=== PATIENT | male | born 1960 | race American Indian/Alaskan Native ===

== ENCOUNTER 2016-08-12 22:31 | Emergency (ER) | payer SELFPAY ==
[2016-08-13] MEDS ORDERED: TYLENOL PO ONE (08:16)
--- NOTE | 2016-08-13 08:16 | Emergency Department Report ---
ED Back Pain/Injury HPI - General Chief Complaint: Back Pain/Injury Stated Complaint: BACK PAIN Time Seen by Provider: 08/13/16 07:21 Source: patient Limitations: No Limitations - History of Present Illness Initial Comments: 55-year-old male past medical history chronic lower back pain, compression of lumbar vertebra, history of alcohol abuse presents with complaint of acute on chronic lower back pain. he has been riding his bike more than usual lately and has typical back pain has gotten slightly worse. Denies any fevers chills no dysuria no hematuria reported by patient. Patient is fully ambulatory states that he has been taking Advil with minimal relief of his pain. States that he was given follow-up with orthopedics and pain management but has not yet followed up as an outpatient. Patient requesting pain medicine and requesting referral for outpatient orthopedic follow-up. Denies any recent trauma or falls MD Complaint: back pain Onset/Timin -: year(s) Severity: mild Severity scale (0 -10): 7 Quality: aching Consistency: constant Context: while lifting, turning/twisting, bending - Related Data Previous Rx's Medication Instructions Recorded Last Taken Type traMADol [Ultram] 50 mg PO Q6HR PRN #20 tablet 11/08/15 Unknown Rx traMADol [Ultram] 50 mg PO Q6HR PRN #10 tablet 01/11/16 Unknown Rx Naproxen [Naprosyn TAB] 375 mg PO BID PRN #20 tablet 08/13/16 Unknown Rx Allergies Allergy/AdvReac Type Severity Reaction Status Date / Time No Known Allergies Allergy Verified 10/14/15 23:17 ED Review of Systems ROS: Stated complaint: BACK PAIN Other details as noted in HPI ED Past Medical Hx - Past Medical History Previous Medical History?: Yes Additional medical history: Back and neck pn, ETOH abuse - Surgical History Additional Surgical History: Left Knee - Social History Smoking Status: Never Smoker Substance Use Type: Alcohol - Medications Home Medications: Home Medications Medication Instructions Recorded Confirmed Last Taken Type traMADol [Ultram] 50 mg PO Q6HR PRN #20 tablet 11/08/15 12/11/15 Unknown Rx traMADol [Ultram] 50 mg PO Q6HR PRN #10 tablet 01/11/16 Unknown Rx Naproxen [Naprosyn TAB] 375 mg PO BID PRN #20 tablet 06/06/17 Unknown Rx ED Physical Exam - General Limitations: No Limitations General appearance: alert, in no apparent distress - Head Head exam: Present: atraumatic, normocephalic - Eye Eye exam: Present: normal appearance, PERRL, EOMI - ENT ENT exam: Present: mucous membranes moist - Neck Neck exam: Present: normal inspection, full ROM - Respiratory Respiratory exam: Present: normal lung sounds bilaterally. Absent: respiratory distress - Cardiovascular Cardiovascular Exam: Present: regular rate, normal rhythm. Absent: systolic murmur, diastolic murmur, rubs, gallop - GI/Abdominal GI/Abdominal exam: Present: soft, normal bowel sounds - Rectal Rectal exam: Present: deferred - Extremities Exam Extremities exam: Present: normal inspection - Back Exam Back exam: Present: normal inspection, full ROM - Expanded Back Exam Expanded Back exam: Positive Straight Leg Raise: Right (at 30 degrees) - Neurological Exam Neurological exam: Present: alert, oriented X3, CN II-XII intact - Expanded Neurological Exam Expanded Patient oriented to: Present: person, place, time Sensory exam: Lower Extremity Light Touch: Normal, Lower Extremity Pin Prick: Normal, LE 2 Point Discrimination: Normal Motor strength exam: RUE: 5, LUE: 5, RLE: 5, LLE: 5 DTR: knee (R): 3+, knee (L): 3+, ankle (R): 3+, ankle (L): 3+ Best Eye Response (Kwaku): (4) open spontaneously Best Motor Response (Milton): (6) obeys commands Best Verbal Response (Milton): (5) oriented Kwaku Total: 15 - Psychiatric Psychiatric exam: Present: normal affect, normal mood - Skin Skin exam: Present: warm, dry, intact, normal color. Absent: rash ED Course Vital Signs 08/12/16 08/13/16 23:24 08:45 Temperature 98.5 F Pulse Rate 107 H Respiratory 20 16 Rate Blood Pressure 132/91 O2 Sat by Pulse 95 Oximetry ED Medical Decision Making - Medical Decision Making A/P: Chronic back pain secondary to degenerative disc disease 1-patient fully ambulatory and no saddle paresthesias, mesenteric reflex intact , no loss of bladder or bowel control strength 5 out of 5 all extremities distal reflexes intact, no clinical signs of cauda equina cord compression 2-follow-up with outpatient orthopedics and I also provided patient with neurosurgery follow-up in formation 3-will give patient trial of naproxen for pain control Critical care attestation.: If time is entered above; I have spent that time in minutes in the direct care of this critically ill patient, excluding procedure time. ED Disposition Clinical Impression: Chronic back pain Qualifiers: Back pain location: low back pain Back pain laterality: midline Sciatica presence: without sciatica Qualified Code(s): M54.5 - Low back pain; G89.29 - Other chronic pain Disposition: DISCHARGED TO HOME OR SELFCARE Is pt being admited?: No Does the pt Need Aspirin: No Condition: Stable Instructions: Chronic Back Pain (ED), Back Pain (ED) Additional Instructions: DEANNA RCOUCH [phone] [email or web address] Prescriptions: Naproxen [Naprosyn TAB] 375 mg PO BID PRN #20 tablet PRN Reason: Pain Referrals: MYRON CHAMBERS MD [Staff Physician] - 3-5 Days [facility] [Provider Group] - 3-5 Days DEANNA CROUCH MD [Staff Physician] - 3-5 Days Time of Disposition: 09:01
[2016-08-13 09:19] VITALS: BP 140/86
== END 2016-08-13 09:18 | disposition home or self-care (01) ==
LOC: ED 22:31
DX: M54.5 Low back pain (principal); G89.29 Other chronic pain
CPT/HCPCS: 99282

== ENCOUNTER 2016-08-30 21:36 | Emergency (ER) | payer SELFPAY ==
--- NOTE | 2016-08-31 04:07 | Emergency Department Report ---
ED Back Pain/Injury HPI - General Chief Complaint: Back Pain/Injury Stated Complaint: BACK PAIN Time Seen by Provider: 08/31/16 03:55 Source: patient Limitations: No Limitations - History of Present Illness Initial Comments: Patient comes into the ER today with continued complaints of back pain. Patient states that he is been told that he has a herniated disc approximately a month ago and was referred to a back doctor but that he missed the appointment. Patient denies any new injury. Patient's comes in tonight simply because of the pain. Denies any loss of bowel control or urinary control, abdominal pain. Patient states that occasionally the pain will radiate into his legs. MD Complaint: back pain - Related Data Previous Rx's Medication Instructions Recorded Last Taken Type traMADol [Ultram] 50 mg PO Q6HR PRN #20 tablet 11/08/15 Unknown Rx traMADol [Ultram] 50 mg PO Q6HR PRN #10 tablet 01/11/16 Unknown Rx Naproxen [Naprosyn TAB] 375 mg PO BID PRN #20 tablet 08/13/16 Unknown Rx Naproxen [Naprosyn TAB] 500 mg PO BID #14 tablet 08/31/16 Unknown Rx traMADol [Ultram 50 MG tab] 50 mg PO Q6HR PRN #15 tablet 08/31/16 Unknown Rx Allergies Allergy/AdvReac Type Severity Reaction Status Date / Time No Known Allergies Allergy Verified 10/14/15 23:17 ED Review of Systems ROS: Stated complaint: BACK PAIN Other details as noted in HPI Constitutional: denies: chills, fever Eyes: denies: eye pain, eye discharge, vision change ENT: denies: ear pain, throat pain Respiratory: denies: cough, shortness of breath, wheezing Cardiovascular: denies: chest pain, palpitations Endocrine: no symptoms reported Gastrointestinal: denies: abdominal pain, nausea, diarrhea Genitourinary: denies: urgency, dysuria Musculoskeletal: back pain. denies: joint swelling, arthralgia Skin: denies: rash, lesions Neurological: denies: headache, weakness, paresthesias Psychiatric: denies: anxiety, depression Hematological/Lymphatic: denies: easy bleeding, easy bruising ED Past Medical Hx - Past Medical History Previous Medical History?: Yes Additional medical history: Back and neck pn, ETOH abuse - Surgical History Past Surgical History?: Yes Additional Surgical History: Left Knee - Social History Smoking Status: Never Smoker - Medications Home Medications: Home Medications Medication Instructions Recorded Confirmed Last Taken Type traMADol [Ultram] 50 mg PO Q6HR PRN #20 tablet 11/08/15 12/11/15 Unknown Rx traMADol [Ultram] 50 mg PO Q6HR PRN #10 tablet 01/11/16 Unknown Rx Naproxen [Naprosyn TAB] 375 mg PO BID PRN #20 tablet 08/13/16 Unknown Rx Naproxen [Naprosyn TAB] 500 mg PO BID #14 tablet 08/31/16 Unknown Rx traMADol [Ultram 50 MG tab] 50 mg PO Q6HR PRN #15 tablet 08/31/16 Unknown Rx ED Physical Exam - General Limitations: No Limitations General appearance: alert, in no apparent distress - Head Head exam: Present: atraumatic, normocephalic - Eye Eye exam: Present: normal appearance - ENT ENT exam: Present: mucous membranes moist - Neck Neck exam: Present: normal inspection - Respiratory Respiratory exam: Present: normal lung sounds bilaterally. Absent: respiratory distress - Cardiovascular Cardiovascular Exam: Present: regular rate, normal rhythm. Absent: systolic murmur, diastolic murmur, rubs, gallop - GI/Abdominal GI/Abdominal exam: Present: soft, normal bowel sounds - Rectal Rectal exam: Present: deferred - Extremities Exam Extremities exam: Present: normal inspection, full ROM, normal capillary refill. Absent: tenderness, pedal edema, joint swelling, calf tenderness - Back Exam Back exam: Present: normal inspection, full ROM, tenderness, paraspinal tenderness. Absent: CVA tenderness (R), CVA tenderness (L), muscle spasm, vertebral tenderness - Neurological Exam Neurological exam: Present: alert, oriented X3, CN II-XII intact, normal gait, reflexes normal. Absent: motor sensory deficit - Psychiatric Psychiatric exam: Present: normal affect, normal mood - Skin Skin exam: Present: warm, dry, intact, normal color. Absent: rash ED Course Vital Signs 08/30/16 21:52 Temperature 98.3 F Pulse Rate 107 H Respiratory 18 Rate Blood Pressure 127/86 O2 Sat by Pulse 100 Oximetry ED Medical Decision Making - Medical Decision Making Patient is nontoxic and hemodynamically stable. Patient has ongoing back pain. I see no reason for additional imaging at this time. I will prescribe patient some mild pain medications as well as anti-inflammatories and give patient another referral to the orthopedics. Patient is in agreement with treatment plan the patient is stable for discharge. Critical care attestation.: If time is entered above; I have spent that time in minutes in the direct care of this critically ill patient, excluding procedure time. ED Disposition Clinical Impression: Low back pain Disposition: DC-01 TO HOME OR SELFCARE Is pt being admited?: No Does the pt Need Aspirin: No Condition: Good Instructions: Chronic Back Pain (ED), Back Pain (ED) Prescriptions: Naproxen [Naprosyn TAB] 500 mg PO BID #14 tablet traMADol [Ultram 50 MG tab] 50 mg PO Q6HR PRN #15 tablet PRN Reason: Pain Referrals: PRIMARY CARE, [Primary Care Provider] - 3-5 Days MYRON CHAMBERS MD [Staff Physician] - 3-5 Days Time of Disposition: 04:06
[2016-08-31 04:22] VITALS: BP 115/77
== END 2016-08-31 04:22 | disposition home or self-care (01) ==
LOC: ED 21:36
DX: M54.5 Low back pain (principal)
CPT/HCPCS: 99282

== ENCOUNTER 2017-01-24 13:46 | Emergency (ER) | payer SELFPAY | END 2017-01-24 16:00 | disposition left against medical advice (07) | LOC: ED 13:46 | DX: Z53.21 Procedure and treatment not carried out due to patient leaving prior to being seen by health care provider (principal) ==

== ENCOUNTER 2017-02-06 20:44 | Emergency (ER) | payer OTHER ==
[2017-02-07 07:04] VITALS: BP 108/69
[2017-02-07] MEDS ORDERED: ZOFRAN ODT PO ONE (08:11)
[2017-02-07] MEDS ORDERED: MORPHINE IM ONE (08:11)
--- NOTE | 2017-02-07 08:33 | Emergency Department Report ---
HPI - General Chief Complaint: Back Pain/Injury Time Seen by Provider: 02/07/17 07:21 - HPI HPI: The patient is a 56-year-old male who presents for evaluation of back pain. The patient reports recurrence of low back pain for the past one week, aching in quality, 10/10 in severity, exacerbated with ambulation. The patient denies blunt trauma to the back, fall, fever, chills, night sweats, saddle anesthesia, paresthesias, numbness or tingling in the legs, leg weakness, urine or bowel incontinence or retention, difficulty ambulating, or other focal neurological deficits. ED Past Medical Hx - Past Medical History Previous Medical History?: Yes Additional medical history: Back and neck pn, chronic L knee pain, ETOH abuse - Surgical History Past Surgical History?: Yes Additional Surgical History: Left Knee - Social History Smoking Status: Never Smoker Substance Use Type: Alcohol - Medications Home Medications: Home Medications Medication Instructions Recorded Confirmed Last Taken Type traMADol [Ultram] 50 mg PO Q6HR PRN #20 tablet 11/08/15 12/11/15 Unknown Rx traMADol [Ultram] 50 mg PO Q6HR PRN #10 tablet 01/11/16 Unknown Rx Naproxen [Naprosyn TAB] 375 mg PO BID PRN #20 tablet 08/13/16 Unknown Rx Naproxen [Naprosyn TAB] 500 mg PO BID #14 tablet 08/31/16 Unknown Rx traMADol [Ultram 50 MG tab] 50 mg PO Q6HR PRN #15 tablet 08/31/16 Unknown Rx traMADol [Ultram 50 MG tab] 50 mg PO Q6HR PRN #15 tablet 02/07/17 Unknown Rx ED Review of Systems ROS: Stated complaint: LOWER BACK PAIN Other details as noted in HPI Constitutional: denies: fever ENT: denies: throat or neck pain Respiratory: denies: cough, shortness of breath Cardiovascular: denies: chest pain Endocrine: denies unexplained weight loss or gain Gastrointestinal: denies: abdominal pain, nausea Genitourinary: denies: dysuria Musculoskeletal: reports back pain denies: leg swelling Skin: denies: rash Neurological: denies: headache Hematological/Lymphatic: denies: easy bleeding or easy bruising Psych: denies sadness or hopelessness Physical Exam - Physical Exam Vital Signs: Vital Signs 02/07/17 02/07/17 02/07/17 03:28 05:48 06:00 Temperature 98.6 F Pulse Rate 104 H Respiratory 18 Rate Blood Pressure 132/77 116/78 108/71 Blood Pressure [Left] O2 Sat by Pulse 96 97 Oximetry 02/07/17 02/07/17 02/07/17 06:30 07:00 07:14 Temperature 98.2 F Pulse Rate 95 H Respiratory 20 Rate Blood Pressure 103/65 108/69 Blood Pressure 108/69 [Left] O2 Sat by Pulse 97 100 Oximetry Physical Exam: General: well-nourished, well-developed, no acute distress Head: Normocephalic, atraumatic Eyes: normal sclera ENT: Mucous membranes are pale and dry Neck: trachea midline, neck supple, No neck stiffness, no cervical adenopathy Respiratory: Breath sounds equal bilaterally, no wheezing, rales, or rhonchi Cardio: S1 and S2 present, no murmurs, rubs, gallops, capillary refill is delayed Abdomen: Normoactive bowel sounds, soft abdomen, no rigidity, no guarding or rebound tenderness Musc: Tenderness to palpation present to bilateral lumbar paraspinal musculature , pain is elicited with flexion at the hip, normal active range of motion at the hip intact, no spinous step-off or obvious deformity, ipsi-lateral and contralateral straight leg raise tests are negative. On extremity testing, compartments are soft and pliable, no obvious gross motor strength deficit, 5+ motor strength, including extension of the great toe bilaterally, no muscular atrophy, spasticity, fasciculations, or clonus, no obvious gross sensation deficit including web space between 1st and 2nd toes, reflexes 2+ & symmetric on DTR testing at the knee and ankle joints, distal pulses intact. Skin: No rash Neuro: no facial drooping, normal speech Psych: Normal affect ED Course Vital Signs 02/07/17 02/07/17 02/07/17 03:28 05:48 06:00 Temperature 98.6 F Pulse Rate 104 H Respiratory 18 Rate Blood Pressure 132/77 116/78 108/71 Blood Pressure [Left] O2 Sat by Pulse 96 97 Oximetry 02/07/17 02/07/17 02/07/17 06:30 07:00 07:14 Temperature 98.2 F Pulse Rate 95 H Respiratory 20 Rate Blood Pressure 103/65 108/69 Blood Pressure 108/69 [Left] O2 Sat by Pulse 97 100 Oximetry ED Medical Decision Making - Medical Decision Making The patient was seen and examined by myself. The patient is placed on a cardiac rehab nurse and continuous pulse ox. On initial evaluation, the patient was found to be in no distress. No findings on exam concerning for cauda equina syndrome, spinal stenosis, or epidural abscess . As the patient has no midline tenderness on exam, no neuro deficits, and no findings concerning for emergent etiology of their back pain, imaging will not be obtained at this time. The patient is given an IM dose of pain medicine. The patient was reevaluated and reported that their pain was improved. The patient is stable for discharge with outpatient follow-up. The patient is given follow-up and return instructions. The patient expressed understanding and agreed with the plan. The patient is discharged in stable condition. Critical care attestation.: If time is entered above; I have spent that time in minutes in the direct care of this critically ill patient, excluding procedure time. ED Disposition Clinical Impression: Acute bilateral low back pain without sciatica, Dehydration Disposition: DC- TO HOME OR SELFCARE Is pt being admited?: No Does the pt Need Aspirin: No Condition: Stable Instructions: Low Back Strain (ED), Acute Low Back Pain (ED) Prescriptions: traMADol [Ultram 50 MG tab] 50 mg PO Q6HR PRN #15 tablet PRN Reason: Pain Referrals: PRIMARY CARE, [Primary Care Provider] - 3-5 Days MYRON CHAMBERS MD [Staff Physician] - 3-5 Days Time of Disposition: 08:30
== END 2017-02-07 10:06 | disposition home or self-care (01) ==
LOC: ED 20:44
DX: M54.5 Low back pain (principal); E86.0 Dehydration; F10.10 Alcohol abuse, uncomplicated
CPT/HCPCS: 96372; 99283; J2270; Q0162

== ENCOUNTER 2017-02-10 22:13 | Emergency (ER) | payer OTHER ==
[2017-02-11 05:01] LABS: Bilirubin,Urine NEG (Negative); Blood,Urine NEG (Negative); Ketones,Urine NEG (Negative); Leukocyte Esterase,Urine NEG (Negative); Nitrite,Urine NEG (Negative); Protein,Urine <15 mg/dL mg/dL (Negative); RBC,Urine < 1.0 /HPF (0.0-6.0); Urobilinogen,Urine < 2.0 mg/dL (<2.0); WBC,Urine < 1.0 /HPF (0.0-6.0)
[2017-02-11] MEDS ORDERED: NORCO 5/325 PO ONE (05:01)
--- NOTE | 2017-02-11 05:01 | Emergency Department Report ---
ED Back Pain/Injury HPI - General Chief Complaint: Back Pain/Injury Stated Complaint: BACK PAIN Time Seen by Provider: 02/11/17 05:01 Source: patient Limitations: No Limitations - History of Present Illness Initial Comments: 56-year-old male past medical history sinus tachycardia, alcohol abuse, years of chronic back and left knee pain pain presents with complaint of acute on chronic lower back pain. Patient states he has lower back pain radiating to his left buttock. Describes pain as intermittently achy and dull slightly worse if he stands for prolonged periods of time. States this is consistent with his previous episodes of back pain and history of back pain. Denies any bladder or bowel incontinence. Denies saddle paresthesias upper or lower extremity paresthesias. Denies any direct trauma or recent falls. Patient is ambulatory without assistance. States that pain is currently 5 out of 10. States that he was seen 4 days ago in ED for lower back pain and attempted to follow up in outpatient orthopedic office but due to insurance issues could not follow up with an appointment so return to the ED. Patient states he did not fill his prescription for pain medicine as he does not currently have insurance. Denies any IV drug use denies fevers or chills denies dysuria abdominal pain or increased urinary frequency or hematuria. Patient is visibly walking around examination room without assistance. Denies any severe lower extremity paresthesias. Patient is fully lucid and conversant and cooperative. States his last alcoholic drink was approximately 48 hours ago. MD Complaint: back pain Place: home, work Severity: moderate Severity scale (0 -10): 5 Quality: aching Consistency: constant Worsens With: walking (walking or standing for prolonged periods of time) Associated Symptoms: denies other symptoms - Related Data Previous Rx's Medication Instructions Recorded Last Taken Type traMADol [Ultram] 50 mg PO Q6HR PRN #20 tablet 11/08/15 Unknown Rx traMADol [Ultram] 50 mg PO Q6HR PRN #10 tablet 01/11/16 Unknown Rx Naproxen [Naprosyn TAB] 375 mg PO BID PRN #20 tablet 08/13/16 Unknown Rx Naproxen [Naprosyn TAB] 500 mg PO BID #14 tablet 08/31/16 Unknown Rx traMADol [Ultram 50 MG tab] 50 mg PO Q6HR PRN #15 tablet 08/31/16 Unknown Rx traMADol [Ultram 50 MG tab] 50 mg PO Q6HR PRN #15 tablet 02/07/17 Unknown Rx Naproxen [Naprosyn TAB] 375 mg PO BID PRN #30 tablet 02/11/17 Unknown Rx Allergies Allergy/AdvReac Type Severity Reaction Status Date / Time No Known Allergies Allergy Verified 10/14/15 23:17 ED Review of Systems ROS: Stated complaint: BACK PAIN Other details as noted in HPI Constitutional: denies: chills, fever Eyes: denies: eye pain, eye discharge, vision change ENT: denies: ear pain, throat pain Respiratory: denies: cough, shortness of breath, wheezing Cardiovascular: denies: chest pain, palpitations Endocrine: no symptoms reported Gastrointestinal: denies: abdominal pain, nausea, diarrhea Genitourinary: denies: urgency, dysuria Musculoskeletal: as per HPI, back pain (history of persistent lower back pain and left knee pain). denies: joint swelling, arthralgia Skin: denies: rash, lesions Neurological: denies: headache, weakness, paresthesias Psychiatric: denies: anxiety, depression Hematological/Lymphatic: denies: easy bleeding, easy bruising ED Past Medical Hx - Past Medical History Previous Medical History?: Yes Additional medical history: Back and neck pn, chronic L knee pain, ETOH abuse. herniated disc - Surgical History Past Surgical History?: Yes Additional Surgical History: Left Knee. skin graft to right hand - Social History Smoking Status: Never Smoker Substance Use Type: Alcohol - Medications Home Medications: Home Medications Medication Instructions Recorded Confirmed Last Taken Type traMADol [Ultram] 50 mg PO Q6HR PRN #20 tablet 11/08/15 12/11/15 Unknown Rx traMADol [Ultram] 50 mg PO Q6HR PRN #10 tablet 01/11/16 Unknown Rx Naproxen [Naprosyn TAB] 375 mg PO BID PRN #20 tablet 08/13/16 Unknown Rx Naproxen [Naprosyn TAB] 500 mg PO BID #14 tablet 08/31/16 Unknown Rx traMADol [Ultram 50 MG tab] 50 mg PO Q6HR PRN #15 tablet 08/31/16 Unknown Rx traMADol [Ultram 50 MG tab] 50 mg PO Q6HR PRN #15 tablet 02/07/17 Unknown Rx Naproxen [Naprosyn TAB] 375 mg PO BID PRN #30 tablet 02/11/17 Unknown Rx ED Physical Exam - General Limitations: No Limitations General appearance: alert, in no apparent distress - Head Head exam: Present: atraumatic, normocephalic - Eye Eye exam: Present: normal appearance, PERRL, EOMI - ENT ENT exam: Present: mucous membranes moist - Neck Neck exam: Present: normal inspection - Respiratory Respiratory exam: Present: normal lung sounds bilaterally. Absent: respiratory distress - Cardiovascular Cardiovascular Exam: Present: regular rate, normal rhythm. Absent: systolic murmur, diastolic murmur, rubs, gallop - GI/Abdominal GI/Abdominal exam: Present: soft, normal bowel sounds - Rectal Rectal exam: Present: deferred, normal rectal tone (rectal tone normal) - Extremities Exam Extremities exam: Present: normal inspection - Back Exam Back exam: Present: normal inspection, paraspinal tenderness (some paraspinal L spine tenderness. No midline thoracic or lumbar spinal tenderness on deep palpation. No back wall ecchymosis.) - Neurological Exam Neurological exam: Present: alert, oriented X3, CN II-XII intact, normal gait - Expanded Neurological Exam Expanded Patient oriented to: Present: person, place, time Cranial nerves: EOM's Intact: Normal Cerebellar function: Finger to Nose: Normal, Romberg: Normal Sensory exam: Upper Extremity Light Touch: Normal, Lower Extremity Light Touch: Normal Motor strength exam: RUE: 5, LUE: 5, RLE: 5, LLE: 5 DTR: knee (R): 3+, knee (L): 3+, ankle (R): 3+, ankle (L): 3+ Best Eye Response ([place]): (4) open spontaneously Best Motor Response ([place]): (6) obeys commands Best Verbal Response ([place]): (5) oriented [place] Total: 15 - Psychiatric Psychiatric exam: Present: normal affect, normal mood - Skin Skin exam: Present: warm, dry, intact, normal color. Absent: rash ED Course Vital Signs 02/10/17 02/10/17 02/11/17 22:18 22:20 04:47 Temperature 97.5 F L 97.5 F L 98.4 F Pulse Rate 118 H 109 H 106 H Respiratory 18 18 20 Rate Blood Pressure 106/71 106/71 Blood Pressure 118/79 [Right] O2 Sat by Pulse 94 97 99 Oximetry ED Medical Decision Making - Medical Decision Making A/P: Acute on chronic lower back pain, chronic spinal compression fractures 1-patient is ambulatory without assistance on clinical exam and observation. Cranial nerves 2, 3, 4, 5, 6, 7, 8,10, 11, 12 intact on clinical exam.Pt is fully lucid awake alert and oriented 3 conversant. Denies any upper or lower extremity paresthesias and has 5/5 strength in bilateral upper and lower extremities on clinical exam. Lower extremity knee jerk reflex and ankle jerk reflexes bilaterally intact. Normal rectal tone. Patient denies subtle paresthesias in bladder or bowel incontinence. No clinical signs or history suggestive of cord compression or cauda equina at this time. Urinalysis unremarkable no signs of UTI at this time 2- patient's pain has decreased moderately with one dose of [place]. I will refrain from prescribing more narcotic pain medicine as atient was given a prescription for tramadol 4 days ago which he hasn't hand and has not yet filled. I advised him to do so and provided him with discount cards and printed out the prices of the medicines for using good Rx discount cards 3-I informed the patient of his x-ray findings. I informed the patient of the importance of following up with both primary care and outpatient orthopedics. I advised patient that he should return to the ED if he experiences bladder or bowel incontinence limb paralysis and inability to walk and/or any severe paresthesias and/or lack of sensation in lower extremities. Patient does not have these symptoms at this time upon clinical evaluation. I discussed this with the patient with staffing rn Mr. Robles present at bedside. Patient stated he understood my instructions. Critical care attestation.: If time is entered above; I have spent that time in minutes in the direct care of this critically ill patient, excluding procedure time. ED Disposition Clinical Impression: Chronic lower back pain Qualifiers: Back pain laterality: bilateral Sciatica presence: without sciatica Qualified Code(s): M54.5 - Low back pain Compression fracture of lumbosacral spine Qualifiers: Encounter type: sequela Fracture type: closed Qualified Code(s): S32.000S - Wedge compression fracture of unspecified lumbar vertebra, sequela Disposition: TO HOME OR SELFCARE Is pt being admited?: No Does the pt Need Aspirin: No Condition: Stable Instructions: Vertebral Compression Fracture (ED), Chronic Back Pain (ED), Degenerative Disc Disease (ED) Prescriptions: Naproxen [Naprosyn TAB] 375 mg PO BID PRN #30 tablet PRN Reason: Pain Referrals: [facility] [Outside] - 3-5 Days [facility] [Outside] - 3-5 Days [facility] [Provider Group] - 3-5 Days MYRON CHAMBERS MD [Staff Physician] - 3-5 Days DEANNA CROUCH MD [Staff Physician] - 3-5 Days Time of Disposition: 07:08
[2017-02-11] MEDS ORDERED: ZOFRAN ODT PO ONE (05:03)
[2017-02-11 05:12] VITALS: BP 118/79
--- NOTE | 2017-02-11 05:39 | XRay Report ---
FINAL REPORT EXAM: XR SPINE LUMBOSACRAL 2-3V HISTORY: lower back pain TECHNIQUE: Three views of the lumbar spine were submitted. There are no previous studies available for comparison. FINDINGS: There are chronic compression fractures of the superior endplates of L3, L5 and L1. There is minimal compression deformities which appear chronic involving T12 and L2. The alignment appears normal. The SI joints appear intact. The soft tissues otherwise appear well maintained. IMPRESSION: Multiple chronic compression fractures involving T12 and multiple lumbar vertebral bodies. No acute injury identified.
== END 2017-02-11 07:27 | disposition home or self-care (01) ==
LOC: ED 22:13
DX: S32.000S Wedge compression fracture of unspecified lumbar vertebra, sequela (principal); G89.29 Other chronic pain; X58.XXXS Exposure to other specified factors, sequela; Y93.89 Activity, other specified; Y99.8 Other external cause status; Y92.89 Other specified places as the place of occurrence of the external cause
CPT/HCPCS: 72100; 81001; 99283; Q0162

== ENCOUNTER 2017-02-11 21:15 | Emergency (ER) | payer SELFPAY ==
[2017-02-12 06:15] VITALS: BP 119/83
== END 2017-02-11 21:30 | disposition left against medical advice (07) ==
LOC: ED 21:15
DX: M54.9 Dorsalgia, unspecified (principal); Z53.21 Procedure and treatment not carried out due to patient leaving prior to being seen by health care provider

== ENCOUNTER 2017-02-12 21:11 | Emergency (ER) | payer SELFPAY ==
[2017-02-12 21:32] VITALS: BP 143/80
== END 2017-02-13 13:10 | disposition left against medical advice (07) ==
LOC: ED 21:11
DX: M54.5 Low back pain (principal); M25.562 Pain in left knee; Z53.21 Procedure and treatment not carried out due to patient leaving prior to being seen by health care provider
CPT/HCPCS: 36415; G0480; 80320

== ENCOUNTER 2017-02-19 23:40 | Emergency (ER) | payer SELFPAY ==
[2017-02-20] VITALS: BP 104/73
[2017-02-20] MEDS ORDERED: ULTRAM PO ONE (00:54)
--- NOTE | 2017-02-20 01:32 | Emergency Department Report ---
ED Back Pain/Injury HPI - General Chief Complaint: Back Pain/Injury Stated Complaint: BACK PAIN Time Seen by Provider: 02/20/17 00:51 Source: patient Limitations: No Limitations - History of Present Illness Initial Comments: pt presents for medication refill for chronic low back pain pt denies new injury fall or trauma. MD Complaint: back pain Onset/Timin -: days(s), year(s) Similar Symptoms Previously: Yes Place: home Radiation: left leg Severity: moderate Severity scale (0 -10): 5 Quality: aching Consistency: intermittent Improves With: other (rest and ultram) Worsens With: movement, walking, other (prolonged standing walking sitting bending twisting ) Context: turning/twisting, bending Associated Symptoms: denies: confusion, weakness, numbness, difficulty urinating , incontinence, fever/chills, loss of appetite, nausea/vomiting - Related Data Previous Rx's Medication Instructions Recorded Last Taken Type traMADol [Ultram] 50 mg PO Q6HR PRN #20 tablet 11/08/15 Unknown Rx traMADol [Ultram] 50 mg PO Q6HR PRN #10 tablet 01/11/16 Unknown Rx Naproxen [Naprosyn TAB] 375 mg PO BID PRN #20 tablet 08/13/16 Unknown Rx Naproxen [Naprosyn TAB] 500 mg PO BID #14 tablet 08/31/16 Unknown Rx traMADol [Ultram 50 MG tab] 50 mg PO Q6HR PRN #15 tablet 08/31/16 Unknown Rx traMADol [Ultram 50 MG tab] 50 mg PO Q6HR PRN #15 tablet 02/07/17 Unknown Rx Naproxen [Naprosyn TAB] 375 mg PO BID PRN #30 tablet 02/11/17 Unknown Rx Cyclobenzaprine [Flexeril] 10 mg PO BID PRN #20 tablet 02/20/17 Unknown Rx Naproxen 500 mg PO BID PRN #60 tablet 02/20/17 Unknown Rx Allergies Allergy/AdvReac Type Severity Reaction Status Date / Time No Known Allergies Allergy Verified 02/12/17 21:29 ED Review of Systems ROS: Stated complaint: BACK PAIN Other details as noted in HPI Constitutional: denies: chills, fever Eyes: denies: eye pain, eye discharge, vision change ENT: denies: ear pain, throat pain Respiratory: denies: cough, shortness of breath, wheezing Cardiovascular: denies: chest pain, palpitations Endocrine: no symptoms reported Gastrointestinal: denies: abdominal pain, nausea, diarrhea Genitourinary: denies: urgency, dysuria Musculoskeletal: denies: back pain, joint swelling, arthralgia Skin: denies: rash, lesions Neurological: denies: headache, weakness, paresthesias Psychiatric: denies: anxiety, depression Hematological/Lymphatic: denies: easy bleeding, easy bruising ED Past Medical Hx - Past Medical History Additional medical history: Back and neck pn, chronic L knee pain, ETOH abuse. herniated disc - Surgical History Additional Surgical History: Left Knee. skin graft to right hand - Social History Smoking Status: Never Smoker Substance Use Type: Alcohol - Medications Home Medications: Home Medications Medication Instructions Recorded Confirmed Last Taken Type traMADol [Ultram] 50 mg PO Q6HR PRN #20 tablet 11/08/15 12/11/15 Unknown Rx traMADol [Ultram] 50 mg PO Q6HR PRN #10 tablet 01/11/16 Unknown Rx Naproxen [Naprosyn TAB] 375 mg PO BID PRN #20 tablet 08/13/16 Unknown Rx Naproxen [Naprosyn TAB] 500 mg PO BID #14 tablet 08/31/16 Unknown Rx traMADol [Ultram 50 MG tab] 50 mg PO Q6HR PRN #15 tablet 08/31/16 Unknown Rx traMADol [Ultram 50 MG tab] 50 mg PO Q6HR PRN #15 tablet 02/07/17 Unknown Rx Naproxen [Naprosyn TAB] 375 mg PO BID PRN #30 tablet 02/11/17 Unknown Rx Cyclobenzaprine [Flexeril] 10 mg PO BID PRN #20 tablet 02/20/17 Unknown Rx Naproxen 500 mg PO BID PRN #60 tablet 02/20/17 Unknown Rx ED Physical Exam - General Limitations: No Limitations General appearance: alert, in no apparent distress - Head Head exam: Present: atraumatic, normocephalic - Eye Eye exam: Present: normal appearance - ENT ENT exam: Present: mucous membranes moist - Neck Neck exam: Present: normal inspection - Respiratory Respiratory exam: Present: normal lung sounds bilaterally. Absent: respiratory distress - Cardiovascular Cardiovascular Exam: Present: regular rate, normal rhythm. Absent: systolic murmur, diastolic murmur, rubs, gallop - GI/Abdominal GI/Abdominal exam: Present: soft, normal bowel sounds - Rectal Rectal exam: Present: deferred - Extremities Exam Extremities exam: Present: normal inspection, full ROM, normal capillary refill. Absent: tenderness, pedal edema, joint swelling, calf tenderness - Back Exam Back exam: Present: normal inspection, full ROM, muscle spasm, paraspinal tenderness (mild paraspinus tenderness to deep palpation on vertebral point tenderness no weakness no numbness no weaknes post left straight leg ). Absent : tenderness, CVA tenderness (R), CVA tenderness (L), vertebral tenderness, rash noted - Expanded Back Exam Expanded Back exam: Absent: saddle anesthesia Back exam: Positive Straight Leg Raise: Left, Negative Straight Leg Raising: Right - Neurological Exam Neurological exam: Present: alert, oriented X3, CN II-XII intact, normal gait, reflexes normal. Absent: motor sensory deficit - Expanded Neurological Exam Expanded Patient oriented to: Present: person, place, time Speech: Present: fluid speech Cranial nerves: EOM's Intact: Normal, Gag Reflex: Normal, Tongue Deviation: Normal, Nystagmus: Normal, Facial Sensation: Normal, Facial Palsy with Forehead Movement: Normal, Facial Palsy without Forehead Movement: Normal Cerebellar function: Finger to Nose: Normal, Heel to No: Normal, Romberg: Normal Upper motor neuron: Ministerio Neglect: Normal, Pronator Drift: Normal, Babinski Sign : Normal, Sensory Extinction: Normal Sensory exam: Upper Extremity Light Touch: Normal, Upper Extremity Pin Prick: Normal, Upper Extremity Temperature: Normal, UE 2 Point Discrimination: Normal, Lower Extremity Light Touch: Normal, Lower Extremity Pin Prick: Normal, Lower Extremity Temperature: Normal, LE 2 Point Discrimination: Normal Motor strength exam: RUE: 5, LUE: 5, RLE: 5, LLE: 5 DTR: bicep (R): 2+, bicep (L): 2+, tricep (R): 2+, tricep (L): 2+, knee (R): 2+ , knee (L): 2+, ankle (R): 2+, ankle (L): 2+ Best Eye Response ([place]): (4) open spontaneously Best Motor Response ([place]): (6) obeys commands Best Verbal Response ([place]): (5) oriented [place] Total: 15 - Psychiatric Psychiatric exam: Present: normal affect, normal mood - Skin Skin exam: Present: warm, dry, intact, normal color. Absent: rash ED Course Vital Signs 02/19/17 23:50 Temperature 98.6 F Pulse Rate 97 H Respiratory 18 Rate Blood Pressure 104/73 O2 Sat by Pulse 97 Oximetry ED Medical Decision Making - Medical Decision Making pt presents for medication refill for chronic low back pain pt denies new injury fall or trauma exam no posterior vertebral point tenderness no swelling no weakness no paresthesia no loss or decrease in bowel or bladder function, plan refill naproxen, flexeril pt will follow up with primary care Dr. Sevilla in 2 -3 days pt verbalized agreement and understanding of same. Critical care attestation.: If time is entered above; I have spent that time in minutes in the direct care of this critically ill patient, excluding procedure time. ED Disposition Clinical Impression: Chronic low back pain Qualifiers: Back pain laterality: left Sciatica presence: with sciatica Sciatica laterality : sciatica of left side Qualified Code(s): M54.42 - Lumbago with sciatica, left side; G89.29 - Other chronic pain; G89.29 - Other chronic pain Disposition: -01 TO HOME OR SELFCARE Is pt being admited?: No Does the pt Need Aspirin: No Condition: Good Instructions: Low Back Strain (ED), Lumbar Radiculopathy (ED), Chronic Back Pain (ED) Prescriptions: Cyclobenzaprine [Flexeril] 10 mg PO BID PRN #20 tablet PRN Reason: Muscle Spasm Naproxen 500 mg PO BID PRN #60 tablet PRN Reason: Pain Referrals: PRIMARY CARE, [Primary Care Provider] - 3-5 Days Forms: Work/School Release Form(ED) Time of Disposition: 01:37
== END 2017-02-20 01:46 | disposition home or self-care (01) ==
LOC: ED 23:40
DX: M54.5 Low back pain (principal); G89.29 Other chronic pain
CPT/HCPCS: 99282

== ENCOUNTER 2017-04-20 17:03 | Emergency (ER) | payer SELFPAY ==
[2017-04-21] MEDS ORDERED: MOTRIN PO ONE (02:14)
[2017-04-21] MEDS ORDERED: NORCO 5/325 PO ONE (02:14)
[2017-04-21] MEDS ORDERED: ZOFRAN ODT PO ONE (02:14)
--- NOTE | 2017-04-21 02:17 | Emergency Department Report ---
ED Neck Pain/Injury HPI - General Chief Complaint: Extremity Problem,Nontraumatic Stated Complaint: LEFT SHOULDER PAIN Time Seen by Provider: 04/21/17 02:12 Mode of arrival: Ambulatory Limitations: No Limitations - History of Present Illness Initial Comments: 56-year-old male past medical history chronic cervical radiculopathy chronic shoulder pain chronic knee pain, L spine herniated disc presents with complaint of acute on chronic left-sided neck/shoulder discomfort. 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 Patient states that over the last week he has had persistent soreness in his left upper shoulder region. Patient states that this is consistent with his previous history of cervical radiculopathy and a pinched nerve in his neck. Denies any chest pain palpitations shortness of breath nausea or vomiting or diaphoresis. Patient is awake alert and oriented 3 not in acute distress fully lucid and ambulatory. Patient denies alcohol or drug use. Denies any chest pain or pain radiating from chest left arm. MD Complaint: neck pain Onset/Timin -: week(s) Severity: moderate Severity scale (0 -10): 6 Consistency: constant Improves With: none Worsens With: none Associated Symptoms: none Treatments Prior to Arrival: none - Related Data Previous Rx's Medication Instructions Recorded Last Taken Type traMADol [Ultram] 50 mg PO Q6HR PRN #20 tablet 11/08/15 Unknown Rx traMADol [Ultram] 50 mg PO Q6HR PRN #10 tablet 01/11/16 Unknown Rx Naproxen [Naprosyn TAB] 375 mg PO BID PRN #20 tablet 08/13/16 Unknown Rx Naproxen [Naprosyn TAB] 500 mg PO BID #14 tablet 08/31/16 Unknown Rx traMADol [Ultram 50 MG tab] 50 mg PO Q6HR PRN #15 tablet 08/31/16 Unknown Rx traMADol [Ultram 50 MG tab] 50 mg PO Q6HR PRN #15 tablet 02/07/17 Unknown Rx Naproxen [Naprosyn TAB] 375 mg PO BID PRN #30 tablet 02/11/17 Unknown Rx Cyclobenzaprine [Flexeril] 10 mg PO BID PRN #20 tablet 02/20/17 Unknown Rx Naproxen 500 mg PO BID PRN #60 tablet 02/20/17 Unknown Rx Cyclobenzaprine [Flexeril] 10 mg PO TID PRN #10 tablet 04/21/17 Unknown Rx Naproxen [Naprosyn] 500 mg PO BID PRN #20 tablet 04/21/17 Unknown Rx Allergies Allergy/AdvReac Type Severity Reaction Status Date / Time No Known Allergies Allergy Verified 02/12/17 21:29 ED Review of Systems ROS: Stated complaint: LEFT SHOULDER PAIN Other details as noted in HPI Constitutional: denies: chills, fever Eyes: denies: eye pain, eye discharge, vision change ENT: denies: ear pain, throat pain Respiratory: denies: cough, shortness of breath, wheezing Cardiovascular: denies: chest pain, palpitations Endocrine: no symptoms reported Gastrointestinal: denies: abdominal pain, nausea, diarrhea Genitourinary: denies: urgency, dysuria Musculoskeletal: as per HPI. denies: back pain, joint swelling, arthralgia Skin: denies: rash, lesions Neurological: denies: headache, weakness, paresthesias Psychiatric: denies: anxiety, depression Hematological/Lymphatic: denies: easy bleeding, easy bruising ED Past Medical Hx - Past Medical History Previous Medical History?: Yes Additional medical history: Back and neck pn, chronic L knee pain, ETOH abuse. herniated disc - Surgical History Past Surgical History?: Yes Additional Surgical History: Left Knee. skin graft to right hand - Social History Smoking Status: Never Smoker Substance Use Type: None - Medications Home Medications: Home Medications Medication Instructions Recorded Confirmed Last Taken Type traMADol [Ultram] 50 mg PO Q6HR PRN #20 tablet 11/08/15 12/11/15 Unknown Rx traMADol [Ultram] 50 mg PO Q6HR PRN #10 tablet 01/11/16 Unknown Rx Naproxen [Naprosyn TAB] 375 mg PO BID PRN #20 tablet 08/13/16 Unknown Rx Naproxen [Naprosyn TAB] 500 mg PO BID #14 tablet 08/31/16 Unknown Rx traMADol [Ultram 50 MG tab] 50 mg PO Q6HR PRN #15 tablet 08/31/16 Unknown Rx traMADol [Ultram 50 MG tab] 50 mg PO Q6HR PRN #15 tablet 02/07/17 Unknown Rx Naproxen [Naprosyn TAB] 375 mg PO BID PRN #30 tablet 02/11/17 Unknown Rx Cyclobenzaprine [Flexeril] 10 mg PO BID PRN #20 tablet 02/20/17 Unknown Rx Naproxen 500 mg PO BID PRN #60 tablet 02/20/17 Unknown Rx Cyclobenzaprine [Flexeril] 10 mg PO TID PRN #10 tablet 04/21/17 Unknown Rx Naproxen [Naprosyn] 500 mg PO BID PRN #20 tablet 04/21/17 Unknown Rx ED Physical Exam - General Limitations: No Limitations General appearance: alert, in no apparent distress - Head Head exam: Present: atraumatic, normocephalic - Eye Eye exam: Present: normal appearance, PERRL, EOMI - ENT ENT exam: Present: mucous membranes moist - Neck Neck exam: Present: normal inspection, full ROM (neck flexion and extension lateral rotation and lateral flexion fully intact on clinical exam. Patient states that when he shrugs his shoulders on the left side it is uncomfortable.) - Respiratory Respiratory exam: Present: normal lung sounds bilaterally. Absent: respiratory distress - Cardiovascular Cardiovascular Exam: Present: regular rate, normal rhythm. Absent: systolic murmur, diastolic murmur, rubs, gallop - GI/Abdominal GI/Abdominal exam: Present: soft, normal bowel sounds - Rectal Rectal exam: Present: deferred - Extremities Exam Extremities exam: Present: normal inspection - Expanded Upper Extremity Exam Left Shoulder Exam: Present: normal inspection, full ROM (left shoulder abduction and adduction internal and external rotation clinically intact) Upper Arm exam: Present: normal inspection, full ROM Elbow exam: Present: normal inspection, full ROM Forearm Wrist exam: Present: normal inspection, full ROM Hand Wrist exam: Present: normal inspection, full ROM Neuro motor exam: Present: wrist extension intact, thumb opposition intact, thumb IP flexion intact, thumb adduction intact, fingers 2-5 abduction intact Vascular: Present: radial pulse (distal radial brachial and ulnar pulses strong to palpation), brachial pulse, ulnar pulse - Back Exam Back exam: Present: normal inspection, full ROM - Neurological Exam Neurological exam: Present: alert, oriented X3, CN II-XII intact, normal gait - Psychiatric Psychiatric exam: Present: normal affect, normal mood - Skin Skin exam: Present: warm, dry, intact, normal color. Absent: rash ED Course Vital Signs 04/20/17 17:14 Temperature 97.9 F Pulse Rate 104 H Respiratory 17 Rate Blood Pressure 122/82 O2 Sat by Pulse 95 Oximetry ED Medical Decision Making - Medical Decision Making A/P: Chronic left shoulder pain, cervical radiculopathy 1-pts symptoms are consistent with his history of cervical radiculopathy. Range of motion left upper extremity clinically intact strength 5/5 left upper extremity, distal pulses and sensation intact 2-follow up with primary care and orthopedics 3-as there is no acute trauma reported by patient no indication for imaging at this time 4-naproxen and Flexeril when necessary Critical care attestation.: If time is entered above; I have spent that time in minutes in the direct care of this critically ill patient, excluding procedure time. ED Disposition Clinical Impression: Cervical radiculopathy, Chronic left shoulder pain Disposition: TO HOME OR SELFCARE Is pt being admited?: No Does the pt Need Aspirin: No Condition: Stable Instructions: Cervical Radiculopathy (ED), Arthralgia (ED) Prescriptions: Cyclobenzaprine [Flexeril] 10 mg PO TID PRN #10 tablet PRN Reason: Muscle Spasm Naproxen [Naprosyn] 500 mg PO BID PRN #20 tablet PRN Reason: Pain Referrals: [facility]– [place] 2[place] [Outside] - 3-5 Days [facility] [Outside] - 3-[address] [facility] [Provider Group] - 3-5 Days Forms: Work/School Release Form(ED) Time of Disposition: 02:17
[2017-04-21 02:31] VITALS: BP 122/81
== END 2017-04-21 03:05 | disposition home or self-care (01) ==
LOC: ED 17:03
DX: M54.12 Radiculopathy, cervical region (principal); M25.512 Pain in left shoulder; G89.29 Other chronic pain; F10.10 Alcohol abuse, uncomplicated
CPT/HCPCS: 99282; Q0162

== ENCOUNTER 2017-04-22 22:39 | Emergency (ER) | payer SELFPAY ==
[2017-04-22 22:48] VITALS: BP 117/95
[2017-04-23] MEDS ORDERED: TORADOL IM ONE (09:08)
--- NOTE | 2017-04-23 09:12 | Emergency Department Report ---
ED Neck Pain/Injury HPI - General Chief Complaint: Extremity Injury, Upper Stated Complaint: LT NECK/SHOULDER PAIN Time Seen by Provider: 04/23/17 08:44 Mode of arrival: Ambulatory Limitations: No Limitations - History of Present Illness Initial Comments: This is a 56-year-old male nontoxic, well nourished in appearance, no acute signs of distress presents to the ED with c/o of chronic intermittent left sided neck pain radiating to left shoulder and upper arm. 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 Patient stated that over the week symptoms became worse and now persistent as soreness to the left shoulder region. Patient was seen on 04/21/2017 and received Flexeril and naproxen but patient stated he did not fill it due to no time and decided to return to emergency room. Patient denies any new trauma or injuries. Patient denies any chest pain, shortness of breath, numbness, tingling, fever, chills, nausea, vomiting, abdominal pain, back pain, headache or stiff neck. Denies any drug allergies. Past medical history includes cervical radiculopathy, chronic left shoulder pain, herniated disc, chronic left knee pain. MD Complaint: neck pain, upper back pain, other (left shoulder pain) -: week(s) (1) Place: work Radiation: right shoulder Severity: mild Severity scale (0 -10): 8 Quality: aching Consistency: intermittent Improves With: immobilization Worsens With: movement of extremity, movement of neck Associated Symptoms: none. denies: headache, fever, numbness, tingling, weakness, vertigo, difficulty walking, swollen glands, difficulty swallowing, nausea, vomiting Treatments Prior to Arrival: none - Related Data Previous Rx's Medication Instructions Recorded Last Taken Type traMADol [Ultram] 50 mg PO Q6HR PRN #20 tablet 11/08/15 Unknown Rx traMADol [Ultram] 50 mg PO Q6HR PRN #10 tablet 01/11/16 Unknown Rx Naproxen [Naprosyn TAB] 375 mg PO BID PRN #20 tablet 08/13/16 Unknown Rx Naproxen [Naprosyn TAB] 500 mg PO BID #14 tablet 08/31/16 Unknown Rx traMADol [Ultram 50 MG tab] 50 mg PO Q6HR PRN #15 tablet 06/24/17 Unknown Rx traMADol [Ultram 50 MG tab] 50 mg PO Q6HR PRN #15 tablet 02/07/17 Unknown Rx Naproxen [Naprosyn TAB] 375 mg PO BID PRN #30 tablet 02/11/17 Unknown Rx Cyclobenzaprine [Flexeril] 10 mg PO BID PRN #20 tablet 02/20/17 Unknown Rx Naproxen 500 mg PO BID PRN #60 tablet 02/20/17 Unknown Rx Cyclobenzaprine [Flexeril] 10 mg PO TID PRN #10 tablet 04/21/17 Unknown Rx Naproxen [Naprosyn] 500 mg PO BID PRN #20 tablet 04/21/17 Unknown Rx Allergies Allergy/AdvReac Type Severity Reaction Status Date / Time No Known Allergies Allergy Verified 02/12/17 21:29 ED Review of Systems ROS: Stated complaint: LT NECK/SHOULDER PAIN Other details as noted in HPI Constitutional: denies: chills, fever Eyes: denies: eye pain, eye discharge, vision change ENT: denies: ear pain, throat pain Respiratory: denies: cough, shortness of breath, wheezing Cardiovascular: denies: chest pain, palpitations Endocrine: no symptoms reported Gastrointestinal: denies: abdominal pain, nausea, diarrhea Genitourinary: denies: urgency, dysuria Musculoskeletal: arthralgia. denies: back pain, joint swelling Skin: denies: rash, lesions Neurological: denies: headache, weakness, paresthesias Psychiatric: denies: anxiety, depression Hematological/Lymphatic: denies: easy bleeding, easy bruising ED Past Medical Hx - Past Medical History Additional medical history: Back and neck pn, chronic L knee pain, ETOH abuse. herniated disc - Surgical History Additional Surgical History: Left Knee. skin graft to right hand - Social History Smoking Status: Former Smoker Substance Use Type: Alcohol - Medications Home Medications: Home Medications Medication Instructions Recorded Confirmed Last Taken Type traMADol [Ultram] 50 mg PO Q6HR PRN #20 tablet 11/08/15 12/11/15 Unknown Rx traMADol [Ultram] 50 mg PO Q6HR PRN #10 tablet 01/11/16 Unknown Rx Naproxen [Naprosyn TAB] 375 mg PO BID PRN #20 tablet 08/13/16 Unknown Rx Naproxen [Naprosyn TAB] 500 mg PO BID #14 tablet 08/31/16 Unknown Rx traMADol [Ultram 50 MG tab] 50 mg PO Q6HR PRN #15 tablet 08/31/16 Unknown Rx traMADol [Ultram 50 MG tab] 50 mg PO Q6HR PRN #15 tablet 02/07/17 Unknown Rx Naproxen [Naprosyn TAB] 375 mg PO BID PRN #30 tablet 02/11/17 Unknown Rx Cyclobenzaprine [Flexeril] 10 mg PO BID PRN #20 tablet 02/20/17 Unknown Rx Naproxen 500 mg PO BID PRN #60 tablet 02/20/17 Unknown Rx Cyclobenzaprine [Flexeril] 10 mg PO TID PRN #10 tablet 04/21/17 Unknown Rx Naproxen [Naprosyn] 500 mg PO BID PRN #20 tablet 04/21/17 Unknown Rx ED Physical Exam - General Limitations: No Limitations General appearance: alert, in no apparent distress - Head Head exam: Present: atraumatic, normocephalic - Eye Eye exam: Present: normal appearance, PERRL, EOMI Pupils: Present: normal accommodation - ENT ENT exam: Present: mucous membranes moist - Neck Neck exam: Present: normal inspection - Respiratory Respiratory exam: Present: normal lung sounds bilaterally. Absent: respiratory distress, wheezes, rales, rhonchi, stridor, chest wall tenderness, accessory muscle use, decreased breath sounds, prolonged expiratory - Cardiovascular Cardiovascular Exam: Present: regular rate, normal rhythm, normal heart sounds. Absent: irregular rhythm, systolic murmur, diastolic murmur, rubs, gallop - GI/Abdominal GI/Abdominal exam: Present: soft, normal bowel sounds. Absent: distended, tenderness, guarding, rebound, rigid, diminished bowel sounds - Rectal Rectal exam: Present: deferred - Extremities Exam Extremities exam: Present: normal inspection, full ROM, normal capillary refill. Absent: tenderness, calf tenderness - Expanded Upper Extremity Exam Left General: Present: normal inspection Shoulder Exam: Present: normal inspection, full ROM, tenderness (deltoid musculer region). Absent: swelling, abrasion, laceration, ecchymosis, deformity , crepidus, dislocation, erythema, tenderness over AC joint Upper Arm exam: Present: normal inspection, full ROM. Absent: tenderness, swelling, abrasion, laceration, ecchymosis, deformity, crepidus, dislocation, erythema Elbow exam: Present: normal inspection, full ROM. Absent: tenderness, swelling , abrasion, laceration, ecchymosis, deformity, crepidus, dislocation, erythema, effusion, pain w/ pronation/supination, tenderness over radial head Forearm Wrist exam: Present: normal inspection, full ROM. Absent: tenderness, swelling, abrasion, laceration, ecchymosis, deformity, crepidus, dislocation, erythema, tenderness over anatomical snuff box, pain with axial thumb loading Hand Wrist exam: Present: normal inspection, full ROM. Absent: tenderness, swelling, abrasion, laceration, ecchymosis, deformity, crepidus, dislocation, erythema, amputation, nail avulsion, subungual hematoma Neuro motor exam: Present: wrist extension intact, thumb opposition intact, thumb IP flexion intact, thumb adduction intact, fingers 2-5 abduction intact Neurosensory exam: Present: 2-point discrimination, radial nerve intact, ulnar nerve intact, median nerve intact Vascular: Present: vascular compromise, normal capillary refill, radial pulse, brachial pulse, ulnar pulse - Back Exam Back exam: Present: normal inspection, full ROM, paraspinal tenderness (left cervical region). Absent: tenderness, CVA tenderness (R), CVA tenderness (L), muscle spasm, vertebral tenderness, rash noted - Expanded Back Exam Expanded Back exam: Absent: saddle anesthesia Back exam: Negative Straight Leg Raising: Left, Right - Neurological Exam Neurological exam: Present: alert, oriented X3, CN II-XII intact, normal gait, reflexes normal - Psychiatric Psychiatric exam: Present: normal affect, normal mood - Skin Skin exam: Present: warm, dry, intact, normal color. Absent: rash ED Course Vital Signs 04/22/17 22:44 Temperature 97.2 F L Pulse Rate 111 H Respiratory 18 Rate Blood Pressure 117/95 O2 Sat by Pulse 95 Oximetry - Reevaluation(s) Reevaluation #1: 04/23/17 09:15 Patient is speaking in full sentences with no signs of distress noted. ED Medical Decision Making - Medical Decision Making This 56-year-old male that presents with cervical radiculopathy and chronic left shoulder pain. Patient is stable and was examined by me. Patient states that he did not take any medication that was prescribed in 2 days ago. Patient received Toradol 30 mg IM in the ED which patient stated symptoms have improved and subsided. Patient denies any cardiac symptoms. Patient stated that he still has prescriptions that this patient most and Flexeril and naproxen which will help relieve the pain. Patient is also referred to primary care doctor. At time of discharge, the patient does not seem toxic or ill in appearance. No acute signs of distress noted. Patient agrees to discharge treatment plan of care. No further questions noted by the patient. Critical care attestation.: If time is entered above; I have spent that time in minutes in the direct care of this critically ill patient, excluding procedure time. ED Disposition Clinical Impression: Cervical radiculopathy, Chronic left shoulder pain Disposition: TO HOME OR SELFCARE Is pt being admited?: No Does the pt Need Aspirin: No Condition: Stable Instructions: Cervical Radiculopathy (ED), Cyclobenzaprine (By mouth), Naproxen (By mouth) Additional Instructions: Follow-up with your primary care doctor in 3-5 days or if symptoms worsen such as bladder or bowel stability, chest pain, short of breath, numbness or tingling sensation in extremities, headache, dizziness, visual changes, nausea vomiting, or abdominal pain, return back to emergency room as was possible. Please fill the Flexeril and naproxen that was prescribed to her during her last visit. Do not operate heavy machinery while taking Flexeril due to sedation Referrals: EDY LAYNE MD [Primary Care Provider] - 3-5 Days GARY WOMACK MD [Staff Physician] - 3-5 Days [facility] [place] [Outside] - 3-5 Days [facility] [Outside] - 3-5 Days
== END 2017-04-23 09:38 | disposition home or self-care (01) ==
LOC: ED 22:39
DX: M54.12 Radiculopathy, cervical region (principal); M25.512 Pain in left shoulder; Z87.891 Personal history of nicotine dependence
CPT/HCPCS: 96372; 99282; J1885

== ENCOUNTER 2017-07-26 22:49 | Emergency (ER) | payer SELFPAY ==
[2017-07-26 22:59] VITALS: BP 109/72
--- NOTE | 2017-07-27 00:42 | Emergency Department Report ---
ED Back Pain/Injury HPI - General Chief Complaint: Back Pain/Injury Stated Complaint: BACK PAIN Time Seen by Provider: 07/26/17 23:59 Source: patient Limitations: No Limitations - History of Present Illness Initial Comments: 56-year-old male past medical history alcohol abuse, chronic lower back compression fractures presents with complaint of acute on chronic lower back pain. Patient is awake alert and oriented 3. Denies dysuria or hematuria. States he is experiencing the same back pain he constantly experiences. Denies any difficulty urinating saddle paresthesias bladder or bowel incontinence. Denies abdominal pain chest pain or any other new symptoms. States he has attempted to follow up as an outpatient but has not actually seen any of the referrals he has been referred to. When I asked the patient why he states that he has personal matters which keep interfering with follow-up. Patient appears to be slightly intoxicated and does admit that he was drinking earlier tonight. Denies any radiation of pain. MD Complaint: back pain -: year(s) Place: home, work - Related Data Previous Rx's Medication Instructions Recorded Last Taken Type traMADol [Ultram] 50 mg PO Q6HR PRN #20 tablet 11/08/15 Unknown Rx traMADol [Ultram] 50 mg PO Q6HR PRN #10 tablet 01/11/16 Unknown Rx Naproxen [Naprosyn TAB] 375 mg PO BID PRN #20 tablet 08/13/16 Unknown Rx Naproxen [Naprosyn TAB] 500 mg PO BID #14 tablet 08/31/16 Unknown Rx traMADol [Ultram 50 MG tab] 50 mg PO Q6HR PRN #15 tablet 08/31/16 Unknown Rx traMADol [Ultram 50 MG tab] 50 mg PO Q6HR PRN #15 tablet 02/07/17 Unknown Rx Naproxen [Naprosyn TAB] 375 mg PO BID PRN #30 tablet 02/11/17 Unknown Rx Cyclobenzaprine [Flexeril] 10 mg PO BID PRN #20 tablet 02/20/17 Unknown Rx Naproxen 500 mg PO BID PRN #60 tablet 02/20/17 Unknown Rx Cyclobenzaprine [Flexeril] 10 mg PO TID PRN #10 tablet 04/21/17 Unknown Rx Naproxen [Naprosyn] 500 mg PO BID PRN #20 tablet 04/21/17 Unknown Rx Acetaminophen [Acetaminophen TAB] 500 mg PO Q6HR PRN #20 tablet 07/27/17 Unknown Rx Acetaminophen/Codeine [Tylenol 1 tab PO Q6H PRN #4 tab 07/27/17 Unknown Rx /Codeine # 3 tab] Allergies Allergy/AdvReac Type Severity Reaction Status Date / Time No Known Allergies Allergy Verified 02/12/17 21:29 ED Review of Systems ROS: Stated complaint: BACK PAIN Other details as noted in HPI ED Past Medical Hx - Past Medical History Previous Medical History?: Yes Additional medical history: Back and neck pn, chronic L knee pain, ETOH abuse. herniated disc - Surgical History Past Surgical History?: Yes Additional Surgical History: Left Knee. skin graft to right hand - Social History Smoking Status: Current Every Day Smoker Substance Use Type: Alcohol - Medications Home Medications: Home Medications Medication Instructions Recorded Confirmed Last Taken Type traMADol [Ultram] 50 mg PO Q6HR PRN #20 tablet 11/08/15 12/11/15 Unknown Rx traMADol [Ultram] 50 mg PO Q6HR PRN #10 tablet 01/11/16 Unknown Rx Naproxen [Naprosyn TAB] 375 mg PO BID PRN #20 tablet 08/13/16 Unknown Rx Naproxen [Naprosyn TAB] 500 mg PO BID #14 tablet 08/31/16 Unknown Rx traMADol [Ultram 50 MG tab] 50 mg PO Q6HR PRN #15 tablet 08/31/16 Unknown Rx traMADol [Ultram 50 MG tab] 50 mg PO Q6HR PRN #15 tablet 02/07/17 Unknown Rx Naproxen [Naprosyn TAB] 375 mg PO BID PRN #30 tablet 02/11/17 Unknown Rx Cyclobenzaprine [Flexeril] 10 mg PO BID PRN #20 tablet 02/20/17 Unknown Rx Naproxen 500 mg PO BID PRN #60 tablet 02/20/17 Unknown Rx Cyclobenzaprine [Flexeril] 10 mg PO TID PRN #10 tablet 04/21/17 Unknown Rx Naproxen [Naprosyn] 500 mg PO BID PRN #20 tablet 04/21/17 Unknown Rx Acetaminophen [Acetaminophen TAB] 500 mg PO Q6HR PRN #20 tablet 07/27/17 Unknown Rx Acetaminophen/Codeine [Tylenol 1 tab PO Q6H PRN #4 tab 07/27/17 Unknown Rx /Codeine # 3 tab] ED Physical Exam - General Limitations: No Limitations General appearance: alert, in no apparent distress - Head Head exam: Present: atraumatic, normocephalic - Eye Eye exam: Present: normal appearance, PERRL, EOMI - ENT ENT exam: Present: mucous membranes moist - Neck Neck exam: Present: normal inspection - Respiratory Respiratory exam: Present: normal lung sounds bilaterally. Absent: respiratory distress - Cardiovascular Cardiovascular Exam: Present: regular rate, normal rhythm. Absent: systolic murmur, diastolic murmur, rubs, gallop - GI/Abdominal GI/Abdominal exam: Present: soft, normal bowel sounds - Rectal Rectal exam: Present: deferred - Extremities Exam Extremities exam: Present: normal inspection - Back Exam Back exam: Present: normal inspection, full ROM, paraspinal tenderness (some mild paraspinal L spine tenderness but no midline thoracic or lumbar spinal tenderness) - Neurological Exam Neurological exam: Present: alert, oriented X3, CN II-XII intact, normal gait - Expanded Neurological Exam Expanded Patient oriented to: Present: person, place, time Cranial nerves: EOM's Intact: Normal Sensory exam: Upper Extremity Light Touch: Normal, Lower Extremity Light Touch: Normal Motor strength exam: RUE: 5, LUE: 5, RLE: 5, LLE: 5 Best Eye Response (Kwaku): (4) open spontaneously Best Motor Response (Chamberino): (6) obeys commands Best Verbal Response (Kwaku): (5) oriented Kwaku Total: 15 - Psychiatric Psychiatric exam: Present: normal affect, normal mood - Skin Skin exam: Present: warm, dry, intact, normal color. Absent: rash ED Course Vital Signs 07/26/17 22:57 Temperature 98.6 F Pulse Rate 94 H Respiratory 17 Rate Blood Pressure 109/72 O2 Sat by Pulse 99 Oximetry ED Medical Decision Making - Medical Decision Making A/P: Chronic lower back pain 1-Tylenol when necessary 2-follow-up with primary care and orthopedics 3-patient admits to persistent alcohol use will refrain from giving NSAIDs. Very short course of Tylenol No. 3 for acute pain 4- no clinical signs of cord compression on exam Critical care attestation.: If time is entered above; I have spent that time in minutes in the direct care of this critically ill patient, excluding procedure time. ED Disposition Clinical Impression: Chronic back pain Qualifiers: Back pain location: low back pain Back pain laterality: unspecified Sciatica presence: without sciatica Qualified Code(s): M54.5 - Low back pain; G89.29 - Other chronic pain Disposition: TO HOME OR SELFCARE Is pt being admited?: No Does the pt Need Aspirin: No Condition: Stable Instructions: Chronic Back Pain (ED) Prescriptions: Acetaminophen [Acetaminophen TAB] 500 mg PO Q6HR PRN #20 tablet PRN Reason: Pain Acetaminophen/Codeine [Tylenol /Codeine # 3 tab] 1 tab PO Q6H PRN #4 tab PRN Reason: Pain Referrals: MYRON CHAMBERS MD [Staff Physician] - 3-5 Days [facility] [Provider Group] - 3-5 Days Time of Disposition: 00:43
== END 2017-07-27 01:36 | disposition home or self-care (01) ==
LOC: ED 22:49
DX: M54.5 Low back pain (principal); G89.29 Other chronic pain; M25.562 Pain in left knee; F17.200 Nicotine dependence, unspecified, uncomplicated
CPT/HCPCS: 99282

== ENCOUNTER 2017-08-09 22:28 | Emergency (ER) | payer SELFPAY ==
[2017-08-09 22:47] VITALS: BP 102/75
--- NOTE | 2017-08-10 05:04 | Emergency Department Report ---
Chief Complaint: Back Pain/Injury Stated Complaint: BACK PAIN Time Seen by Provider: 08/10/17 04:57 - HPI History of Present Illness: This is a 56-year-old -[place] male presents with chronic low back pain for several years. Patient reports coming here because he does not have insurance and unable to get refills for chronic low back pain. He was just here ago but ran out of medication and unable to follow up with anyone else at this time. Patient reports pain is bilateral lower back pain that is nonradiating. Pain is aggravated with movement. He was taken Tylenol with no improvement of symptoms. Denies swelling, erythema, radiating, numbness or tingling, and chest pain. - Exam Vital Signs: Vital Signs 08/09/17 22:44 Temperature 98.4 F Pulse Rate 106 H Respiratory 20 Rate Blood Pressure 102/75 O2 Sat by Pulse 96 Oximetry Physical Exam: GENERAL: The patient is looking unwell, but in no acute distress. CHEST: Air entry is adequate bilaterally with no rhonchi or crackles are appreciated. HEART: Sounds 1 and 2 are heard and are normal. Regular rate and rhythm, no murmurs, gallops, or rubs. ABDOMEN: Soft and nontender. Bowel sounds are present. There is no hepatosplenomegaly. MUSCULOSKELETAL: Tenderness bilateral lumbosacral area EXTREMITIES: Without edema, cyanosis, or clubbing. MSE screening note: Focused history and physical exam performed. Due to findings the following was ordered: No prescriptions ordered. Instructed to follow-up with Dr. Roland has referred previously and side [facility] for management of chronic low back pain. ED Disposition for MSE Condition: Stable Referrals: PRIMARY CARE, [Primary Care Provider] - 3-5 Days
== END 2017-08-10 05:02 | disposition left against medical advice (07) ==
LOC: ED 22:28
DX: M54.5 Low back pain (principal); G89.29 Other chronic pain
CPT/HCPCS: 99282

== ENCOUNTER 2017-08-25 01:11 | Emergency (ER) | payer SELFPAY ==
[2017-08-25] MEDS ORDERED: ASPIRIN PO ONE (01:28)
[2017-08-25 01:57] LABS: Hemoglobin 14.3 gm/dl (11.8-15.2); Mean Corpuscular HGB Conc 33 % (32-34); Mean Corpuscular Hemoglobin 30 pg (28-32); Mean Corpuscular Volume 89 fl (84-94); Platelet Count 174 K/mm3 (140-440); Red Blood Count 4.81 M/mm3 (3.65-5.03)
[2017-08-25 02:14] LABS: BUN/Creatinine Ratio 10; Blood Urea Nitrogen 9 mg/dL (9-20); Calcium 8.3 mg/dL (8.4-10.2); Hemolysis Index 4
[2017-08-25 02:39] LABS: Basophils % (Manual) 0 % (0.0-1.8); RBC Morphology Normal; Total Cells Counted 100
[2017-08-25] MEDS ORDERED: TORADOL IM ONE (07:34)
--- NOTE | 2017-08-25 07:38 | Emergency Department Report ---
ED Chest Pain HPI - General Chief Complaint: Chest Pain Stated Complaint: LOWER BACK PAIN Time Seen by Provider: 08/25/17 06:58 Source: patient Mode of arrival: Ambulatory Limitations: No Limitations - History of Present Illness Initial Comments: 56-year-old male with a past medical history of chronic neck and back pain, history of alcohol abuse (as per record patient denies daily use), previous left knee surgery with chronic intermittent left leg swelling present to the hospital complaining of some chest pain started last night. Patient is sent to the chest, into maintain, worse palpation. Mild associated shortness of breath due to pain with inspiration. Positive nausea without vomiting or diaphoresis. Patient complains of chronic intermittent left lower leg swelling secondary to previous knee surgeries. Mild calf tenderness. Denies history of PE/DVT, recent travel, cough, or fever. Patient also complains of chronic ongoing left lower back pain that is sharp, constant, worse palpation and movement and rated 8/10 in intensity. No dysuria, hematuria, or urinary incontinence/retention reported. Severity scale (0 -10): 7 - Related Data Previous Rx's Medication Instructions Recorded Last Taken Type traMADol [Ultram] 50 mg PO Q6HR PRN #20 tablet 11/08/15 Unknown Rx traMADol [Ultram] 50 mg PO Q6HR PRN #10 tablet 01/11/16 Unknown Rx Naproxen [Naprosyn TAB] 375 mg PO BID PRN #20 tablet 08/13/16 Unknown Rx Naproxen [Naprosyn TAB] 500 mg PO BID #14 tablet 08/31/16 Unknown Rx traMADol [Ultram 50 MG tab] 50 mg PO Q6HR PRN #15 tablet 08/31/16 Unknown Rx traMADol [Ultram 50 MG tab] 50 mg PO Q6HR PRN #15 tablet 02/07/17 Unknown Rx Naproxen [Naprosyn TAB] 375 mg PO BID PRN #30 tablet 02/11/17 Unknown Rx Cyclobenzaprine [Flexeril] 10 mg PO BID PRN #20 tablet 02/20/17 Unknown Rx Naproxen [Naprosyn] 500 mg PO BID PRN #20 tablet 04/21/17 Unknown Rx Acetaminophen [Acetaminophen TAB] 500 mg PO Q6HR PRN #20 tablet 07/27/17 Unknown Rx Acetaminophen/Codeine [Tylenol 1 tab PO Q6H PRN #4 tab 07/27/17 Unknown Rx /Codeine # 3 tab] Cyclobenzaprine [Flexeril 10 MG 10 mg PO TID PRN #10 tablet 08/25/17 Unknown Rx TAB] Naproxen 500 mg PO BID PRN #60 tablet 08/25/17 Unknown Rx traMADol [Ultram 50 MG tab] 50 mg PO Q6HR PRN #20 tablet 08/25/17 Unknown Rx Allergies Allergy/AdvReac Type Severity Reaction Status Date / Time No Known Allergies Allergy Verified 02/12/17 21:29 Heart Score - HEART Score History: Slightly suspicious EKG: Normal Age: 45-65 Risk factors: 1-2 risk factors Troponin: < normal limit HEART Score: 2 ED Review of Systems ROS: Stated complaint: LOWER BACK PAIN Other details as noted in HPI Comment: All other systems reviewed and negative ED Past Medical Hx - Past Medical History Previous Medical History?: Yes Additional medical history: Back and neck pn, chronic L knee pain, ETOH abuse. herniated disc - Surgical History Past Surgical History?: Yes Additional Surgical History: Left Knee. skin graft to right hand - Social History Smoking Status: Never Smoker Substance Use Type: None - Medications Home Medications: Home Medications Medication Instructions Recorded Confirmed Last Taken Type traMADol [Ultram] 50 mg PO Q6HR PRN #20 tablet 11/08/15 12/11/15 Unknown Rx traMADol [Ultram] 50 mg PO Q6HR PRN #10 tablet 01/11/16 Unknown Rx Naproxen [Naprosyn TAB] 375 mg PO BID PRN #20 tablet 08/13/16 Unknown Rx Naproxen [Naprosyn TAB] 500 mg PO BID #14 tablet 08/31/16 Unknown Rx traMADol [Ultram 50 MG tab] 50 mg PO Q6HR PRN #15 tablet 08/31/16 Unknown Rx traMADol [Ultram 50 MG tab] 50 mg PO Q6HR PRN #15 tablet 02/07/17 Unknown Rx Naproxen [Naprosyn TAB] 375 mg PO BID PRN #30 tablet 02/11/17 Unknown Rx Cyclobenzaprine [Flexeril] 10 mg PO BID PRN #20 tablet 02/20/17 Unknown Rx Naproxen [Naprosyn] 500 mg PO BID PRN #20 tablet 04/21/17 Unknown Rx Acetaminophen [Acetaminophen TAB] 500 mg PO Q6HR PRN #20 tablet 07/27/17 Unknown Rx Acetaminophen/Codeine [Tylenol 1 tab PO Q6H PRN #4 tab 07/27/17 Unknown Rx /Codeine # 3 tab] Cyclobenzaprine [Flexeril 10 MG 10 mg PO TID PRN #10 tablet 08/25/17 Unknown Rx TAB] Naproxen 500 mg PO BID PRN #60 tablet 08/25/17 Unknown Rx traMADol [Ultram 50 MG tab] 50 mg PO Q6HR PRN #20 tablet 08/25/17 Unknown Rx ED Physical Exam - General Limitations: No Limitations - Other Other exam information: General: No limitations, patient is alert in no acute distress Head exam: Atraumatic, normocephalic Eyes exam: Normal appearance ENT: Moist mucous membrane, normal oropharynx Neck exam: Normal inspection, full range of motion, no meningismus nontender Respiratory exam: Clear to auscultation bilateral, no wheezes, rales, crackles Cardiovascular: Normal rate and rhythm, normal heart sounds, reproducible sternal chest wall tenderness Abdomen: Soft, nondistended, and nontender, with normal bowel sounds, no rebound, or guarding Extremity: Full range of motion, minimal left lower leg swelling with mild calf tenderness. No pitting edema Back: Normal Inspection, full range of motion, left lower paraspinal muscle tenderness Neurologic: Alert, oriented x3, cranial nerves intact, no motor or sensory deficit Psychiatric: normal affect, normal mood Skin: Warm, dry, intact ED Course Vital Signs 08/25/17 08/25/17 08/25/17 01:28 06:32 07:58 Temperature 97.4 F L 98 F 98.2 F Pulse Rate 107 H 80 69 Respiratory 18 15 15 Rate Blood Pressure 129/86 Blood Pressure 127/90 134/84 [Left] O2 Sat by Pulse 99 98 96 Oximetry CHALO score - Chalo Score Age > 65: (0) No Aspirin use within the Past 7 Days: (0) No 3 or more CAD Risk Factors: (0) No 2 or more Angina events in past 24 hrs: (0) No Known CAD with more than 50% Stenosis: (0) No Elevated Cardiac Markers: (0) No ED Medical Decision Making - Lab Data Result diagrams: 08/25/17 01:47 08/25/17 01:47 Lab Results 08/25/17 08/25/1708/25/18 Range/Units 01:47 01:47 04:52 WBC 5.3 (4.5-11.0) K/mm3 RBC 4.81 (3.65-5.03) M/mm3 Hgb 14.3 (11.8-15.2) gm/dl Hct 43.0 (35.5-45.6) % MCV 89 (84-94) fl MCH 30 (28-32) pg MCHC 33 (32-34) % RDW 15.0 (13.2-15.2) % Plt Count 174 (140-440) K/mm3 Add Manual Diff Complete Total Counted 100 Seg Neutrophils % [employer] Manager Seg Neuts % (Manual) 29.0 L (40.0-70.0) % Band Neutrophils % 0 % Lymphocytes % (Manual) 58.0 H (13.4-35.0) % Reactive Lymphs % (Man) 0 % Monocytes % (Manual) 9.0 H (0.0-7.3) % Eosinophils % (Manual) 4.0 (0.0-4.3) % Basophils % (Manual) 0 (0.0-1.8) % Metamyelocytes % 0 % Myelocytes % 0 % Promyelocytes % 0 % Blast Cells % 0 % Nucleated RBC % Not Reportable Seg Neutrophils # Man 1.5 L (1.8-7.7) K/mm3 Band Neutrophils # 0.0 K/mm3 Lymphocytes # (Manual) 3.1 (1.2-5.4) K/mm3 Abs React Lymphs (Man) 0.0 K/mm3 Monocytes # (Manual) 0.5 (0.0-0.8) K/mm3 Eosinophils # (Manual) 0.2 (0.0-0.4) K/mm3 Basophils # (Manual) 0.0 (0.0-0.1) K/mm3 Metamyelocytes # 0.0 K/mm3 Myelocytes # 0.0 K/mm3 Promyelocytes # 0.0 K/mm3 Blast Cells # 0.0 K/mm3 WBC Morphology Not Reportable Hypersegmented Neuts Not Reportable Hyposegmented Neuts Not Reportable Hypogranular Neuts Not Reportable Smudge Cells Not Reportable Toxic Granulation Not Reportable Toxic Vacuolation Not Reportable Dohle Bodies Not Reportable Pelger-Huet Anomaly Not Reportable Katie Rods Not Reportable Platelet Estimate Not Reportable Clumped Platelets Not Reportable Plt Clumps, EDTA Not Reportable Large Platelets Not Reportable Giant Platelets Not Reportable Platelet Satelliting Not Reportable Plt Morphology Comment Not Reportable RBC Morphology Normal Dimorphic RBCs Not Reportable Polychromasia Not Reportable Hypochromasia Not Reportable Poikilocytosis Not Reportable Anisocytosis Not Reportable Microcytosis Not Reportable Macrocytosis Not Reportable Spherocytes Not Reportable Pappenheimer Bodies Not Reportable Sickle Cells Not Reportable Target Cells Not Reportable Tear Drop Cells Not Reportable Ovalocytes Not Reportable Helmet Cells Not Reportable Torres-[place] Bodies Not Reportable [place] Rings Not Reportable [place] Cells Not Reportable Bite Cells Not Reportable Crenated Cell Not Reportable Elliptocytes Not Reportable Acanthocytes (Spur) Not Reportable Rouleaux Not Reportable Hemoglobin C Crystals Not Reportable Schistocytes Not Reportable Malaria parasites Not Reportable Connor Bodies Not Reportable Hem Pathologist Commnt No PT (12.2-14.9) Sec. INR (0.87-1.13) Sodium 144 (137-145) mmol/L Potassium 3.9 (3.6-5.0) mmol/L Chloride 105.4 (98-107) mmol/L Carbon Dioxide 25 (22-30) mmol/L Anion Gap 18 mmol/L BUN 9 (9-20) mg/dL Creatinine 0.9 (0.8-1.5) mg/dL Estimated GFR > 60 ml/min BUN/Creatinine Ratio 10 % Glucose 91 (75-100) mg/dL Calcium 8.3 L (8.4-10.2) mg/dL Troponin T < 0.010 < 0.010 (0.00-0.029) ng/mL 08/25/17 08/25/17 Range/Units 07:50 07:50 WBC (4.5-11.0) K/mm3 RBC (3.65-5.03) M/mm3 Hgb (11.8-15.2) gm/dl Hct (35.5-45.6) % MCV (84-94) fl MCH (28-32) pg MCHC (32-34) % RDW (13.2-15.2) % Plt Count (140-440) K/mm3 Add Manual Diff Total Counted Seg Neutrophils % Seg Neuts % (Manual) (40.0-70.0) % Band Neutrophils % % Lymphocytes % (Manual) (13.4-35.0) % Reactive Lymphs % (Man) % Monocytes % (Manual) (0.0-7.3) % Eosinophils % (Manual) (0.0-4.3) % Basophils % (Manual) (0.0-1.8) % Metamyelocytes % % Myelocytes % % Promyelocytes % % Blast Cells % % Nucleated RBC % Seg Neutrophils # Man (1.8-7.7) K/mm3 Band Neutrophils # K/mm3 Lymphocytes # (Manual) (1.2-5.4) K/mm3 Abs React Lymphs (Man) K/mm3 Monocytes # (Manual) (0.0-0.8) K/mm3 Eosinophils # (Manual) (0.0-0.4) K/mm3 Basophils # (Manual) (0.0-0.1) K/mm3 Metamyelocytes # K/mm3 Myelocytes # K/mm3 Promyelocytes # K/mm3 Blast Cells # K/mm3 WBC Morphology Hypersegmented Neuts Hyposegmented Neuts Hypogranular Neuts Smudge Cells Toxic Granulation Toxic Vacuolation Dohle Bodies Pelger-Huet Anomaly Katie Rods Platelet Estimate Clumped Platelets Plt Clumps, EDTA Large Platelets Giant Platelets Platelet Satelliting Plt Morphology Comment RBC Morphology Dimorphic RBCs Polychromasia Hypochromasia Poikilocytosis Anisocytosis Microcytosis Macrocytosis Spherocytes Pappenheimer Bodies Sickle Cells Target Cells Tear Drop Cells Ovalocytes Helmet Cells Torres-[place] Bodies [place] Rings [place] Cells Bite Cells Crenated Cell Elliptocytes Acanthocytes (Spur) Rouleaux Hemoglobin C Crystals Schistocytes Malaria parasites Connor Bodies Hem Pathologist Commnt PT 13.0 (12.2-14.9) Sec. INR 0.94 (0.87-1.13) Sodium (137-145) mmol/L Potassium (3.6-5.0) mmol/L Chloride (98-107) mmol/L Carbon Dioxide (22-30) mmol/L Anion Gap mmol/L BUN (9-20) mg/dL Creatinine (0.8-1.5) mg/dL Estimated GFR ml/min BUN/Creatinine Ratio % Glucose (75-100) mg/dL Calcium (8.4-10.2) mg/dL Troponin T < 0.010 (0.00-0.029) ng/mL - EKG Data -: EKG Interpreted by Me EKG shows normal: sinus rhythm, axis (qrs 21), QRS complexes (qrd 98), ST-T waves (no stemi/t inv) Rate: normal - EKG Data When compared to previous EKG there are: no significant change 08/25/17 07:38 repeat ekt at 6:25 am sinus 64, qrs 60, qrsd 95, no steim/t inv - Radiology Data Radiology results: pending (VASCULAR LAB.PRELIMINARY REPORT. LLE VENOUS DUPLEX DONE. NO EVIDENCE OF DVT/SVT IN VESSELS VISUALIZED.), report reviewed cxr: INDICATION: Chest pain. COMPARISON: 01/11/2016 FINDINGS: Portable, frontal chest radiograph demonstrates stable cardiomediastinal silhouette. Clear lungs. EKG leads. Demineralized bones with few degenerative changes. CONCLUSION: No acute disease. Thank you for the opportunity to participate in this patient's care. - Medical Decision Making Patient reproducible sternal chest wall pain. Left leg swelling is minimal and apparently chronic and intermittent since receiving with knee surgery. Doppler study is negative. Low score Wells criteria for DVT and PE. Patient will be treated symptomatically for pain and outpatient follow-up encouraged - Differential Diagnosis costochondritis, chronic pain, DVT, PE, IL, unstable angina Critical Care Time: No Critical care attestation.: If time is entered above; I have spent that time in minutes in the direct care of this critically ill patient, excluding procedure time. ED Disposition Clinical Impression: Costochondritis, acute, Acute exacerbation of chronic low back pain Disposition: DC-01 TO HOME OR SELFCARE Is pt being admited?: No Does the pt Need Aspirin: No Condition: Stable Instructions: Costochondritis (ED), Chronic Back Pain (ED) Additional Instructions: Take the medication as prescribed. Return if symptoms worsen as indicated by your discharge instructions. Follow-up with your primary care doctor or the clinic/doctor provided. Prescriptions: Cyclobenzaprine [Flexeril 10 MG TAB] 10 mg PO TID PRN #10 tablet PRN Reason: Muscle Spasm Naproxen 500 mg PO BID PRN #60 tablet PRN Reason: Pain traMADol [Ultram 50 MG tab] 50 mg PO Q6HR PRN #20 tablet PRN Reason: Pain Referrals: PRIMARY CARE, [Primary Care Provider] - 3-5 Days [facility] [Provider Group] - 3-5 Days KAYLA MCBRIDE MD [Staff Physician] - 3-5 Days Time of Disposition: 09:13
[2017-08-25 08:19] LABS: INR 0.94 (0.87-1.13)
--- NOTE | 2017-08-25 08:41 | XRay Report ---
PORTABLE CHEST INDICATION: Chest pain. COMPARISON: 01/11/2016 FINDINGS: Portable, frontal chest radiograph demonstrates stable cardiomediastinal silhouette. Clear lungs. EKG leads. Demineralized bones with few degenerative changes. CONCLUSION: No acute disease. Thank you for the opportunity to participate in this patient's care.
[2017-08-25] MEDS ORDERED: ULTRAM PO ONE (09:01)
[2017-08-25 09:48] VITALS: BP 123/84
--- NOTE | 2017-08-26 12:46 | Vascular Lab Report ---
Left Lower Extremity Venous Duplex Study: Reason for Exam: Pain and swelling of the left lower extremity. Comments on the Right: A limited duplex study was done of the proximal veins of the right lower extremity. All veins visualized are freely compressible without evidence of internal echogenicity. Flow is spontaneous and phasic throughout. No evidence of acute or chronic thrombus is seen in any of the vessels visualized. Comments on the Left: All veins visualized are freely compressible without evidence of internal echogenicity. Flow is spontaneous and phasic throughout. No evidence of acute or chronic thrombus is seen in any of the vessels visualized. Impression: No evidence of acute or chronic deep venous thrombosis in the left lower extremity.
== END 2017-08-25 09:45 | disposition home or self-care (01) ==
LOC: ED 01:11
DX: M94.0 Chondrocostal junction syndrome [Tietze] (principal); G89.29 Other chronic pain; M54.5 Low back pain
CPT/HCPCS: 36415; 71045; 80048; 84484; 85007; 85025; 85610; 93005; 93010; 93971; 96372; 99285; J1885

== ENCOUNTER 2017-08-26 21:31 | Inpatient (IN) | payer OTHER ==
[2017-08-26] MEDS ORDERED: ASPIRIN PO ONE (22:42)
[2017-08-26 23:25] LABS: Hematocrit 42.6 % (35.5-45.6); Hemoglobin 13.9 gm/dl (11.8-15.2); Mean Corpuscular HGB Conc 33 % (32-34); Mean Corpuscular Hemoglobin 29 pg (28-32); Mean Corpuscular Volume 88 fl (84-94); Platelet Count 206 K/mm3 (140-440); Red Blood Count 4.82 M/mm3 (3.65-5.03); Red Cell Distribution Width 14.9 % (13.2-15.2)
[2017-08-26 23:43] LABS: BUN/Creatinine Ratio 11; Blood Urea Nitrogen 8 mg/dL (9-20); Calcium 8.2 mg/dL (8.4-10.2); Hemolysis Index 9
[2017-08-27 02:33] LABS: Basophils % (Manual) 0 % (0.0-1.8); Total Cells Counted 100
[2017-08-27 02:34] LABS: Platelet Estimate Consistent w Auto; Target Cells Few
[2017-08-27] MEDS ORDERED: ATIVAN PO ONE (07:49)
[2017-08-27 09:14] LABS: INR 0.89 (0.87-1.13)
[2017-08-27 09:15] LABS: Partial Thromboplastin Time 27.3 Sec. (24.2-36.6)
[2017-08-27 10:30] LABS: Albumin 3.6 g/dL (3.9-5); Bilirubin,Direct 0.2 mg/dL (0-0.2)
[2017-08-27 10:36] LABS: Amphetamine Screen,Urine PRESUMPTIVE NEGATIVE; Benzodiazepines Screen,Urine PRESUMPTIVE NEGATIVE; Cannabinoid Screen,Urine PRESUMPTIVE NEGATIVE; Cocaine Screen,Urine PRESUMPTIVE NEGATIVE; Methadone Screen,Urine PRESUMPTIVE NEGATIVE; Opiate Screen,Urine PRESUMPTIVE NEGATIVE
--- NOTE | 2017-08-27 10:45 | Emergency Department Report ---
ED Chest Pain HPI - General Chief Complaint: Chest Pain Stated Complaint: ABD PAIN Time Seen by Provider: 08/27/17 07:12 Source: patient Mode of arrival: Ambulatory Limitations: No Limitations - History of Present Illness Initial Comments: 56-year-old male who states he presents to the emergency department for the second time for evaluation of chest pain. It appears the patient was mainly complaining of left leg pain on his previous visit. He had a negative Doppler. He also had a negative chest x-ray. He has been abusing alcohol. He states that he has chest pain which does not radiate in the substernal area. He denies prior workup. He denies pleuritic pain. He states that he is short of breath during these episodes of chest pain. However they do not appear to be exertional. He does not complain of vomiting. He states he sometimes feels nauseated. MD Complaint: chest pain -: days(s) (worse over the past 2 days), week(s) Onset: during rest Pain Location: substernal Pain Radiation: none Severity: moderate Severity scale (0 -10): 0 Quality: dull Consistency: intermittent Improves With: nothing Worsens With: nothing re: nausea, dyspnea. denies: vomting, diaphoresis, sense of impending doom Other Symptoms: leg swelling (chronic left leg swelling). denies: cough, fever , syncope, rash, acid taste in mouth, palpitations, burping Aspirin use within the Past 7 Days: (0) No - Related Data Previous Rx's Medication Instructions Recorded Last Taken Type traMADol [Ultram] 50 mg PO Q6HR PRN #20 tablet 11/08/15 Unknown Rx traMADol [Ultram] 50 mg PO Q6HR PRN #10 tablet 01/11/16 Unknown Rx Naproxen [Naprosyn TAB] 375 mg PO BID PRN #20 tablet 08/13/16 Unknown Rx Naproxen [Naprosyn TAB] 500 mg PO BID #14 tablet 08/31/16 Unknown Rx traMADol [Ultram 50 MG tab] 50 mg PO Q6HR PRN #15 tablet 08/31/16 Unknown Rx traMADol [Ultram 50 MG tab] 50 mg PO Q6HR PRN #15 tablet 02/07/17 Unknown Rx Naproxen [Naprosyn TAB] 375 mg PO BID PRN #30 tablet 02/11/17 Unknown Rx Cyclobenzaprine [Flexeril] 10 mg PO BID PRN #20 tablet 02/20/17 Unknown Rx Naproxen [Naprosyn] 500 mg PO BID PRN #20 tablet 04/21/17 Unknown Rx Acetaminophen [Acetaminophen TAB] 500 mg PO Q6HR PRN #20 tablet 07/27/17 Unknown Rx Acetaminophen/Codeine [Tylenol 1 tab PO Q6H PRN #4 tab 07/27/17 Unknown Rx /Codeine # 3 tab] Cyclobenzaprine [Flexeril 10 MG 10 mg PO TID PRN #10 tablet 08/25/17 Unknown Rx TAB] Naproxen 500 mg PO BID PRN #60 tablet 08/25/17 Unknown Rx traMADol [Ultram 50 MG tab] 50 mg PO Q6HR PRN #20 tablet 08/25/17 Unknown Rx Allergies Allergy/AdvReac Type Severity Reaction Status Date / Time No Known Allergies Allergy Verified 08/27/17 08:02 Heart Score - HEART Score History: Slightly suspicious EKG: Non-specific Age: 45-65 Risk factors: 1-2 risk factors Troponin: < normal limit HEART Score: 3 - Critical Actions Critical Actions: 0-3 pts:0.9-1.7%risk of adverse cardiac event.Candidate for discharge ED Review of Systems ROS: Stated complaint: ABD PAIN Other details as noted in HPI Constitutional: denies: chills, fever Eyes: denies: eye pain, eye discharge, vision change ENT: denies: ear pain, throat pain Respiratory: denies: cough, shortness of breath, wheezing Cardiovascular: chest pain. denies: palpitations Endocrine: no symptoms reported Gastrointestinal: denies: abdominal pain, nausea, diarrhea Genitourinary: denies: urgency, dysuria Musculoskeletal: denies: back pain, joint swelling, arthralgia Skin: denies: rash, lesions Neurological: denies: headache, weakness, paresthesias Psychiatric: denies: anxiety, depression Hematological/Lymphatic: denies: easy bleeding, easy bruising ED Past Medical Hx - Past Medical History Additional medical history: Back and neck pn, chronic L knee pain, ETOH abuse. herniated disc - Surgical History Additional Surgical History: Left Knee. skin graft to right hand - Social History Smoking Status: Unknown if ever smoked Substance Use Type: Alcohol - Medications Home Medications: Home Medications Medication Instructions Recorded Confirmed Last Taken Type traMADol [Ultram] 50 mg PO Q6HR PRN #20 tablet 11/08/15 12/11/15 Unknown Rx traMADol [Ultram] 50 mg PO Q6HR PRN #10 tablet 01/11/16 Unknown Rx Naproxen [Naprosyn TAB] 375 mg PO BID PRN #20 tablet 08/13/16 Unknown Rx Naproxen [Naprosyn TAB] 500 mg PO BID #14 tablet 08/31/16 Unknown Rx traMADol [Ultram 50 MG tab] 50 mg PO Q6HR PRN #15 tablet 08/31/16 Unknown Rx traMADol [Ultram 50 MG tab] 50 mg PO Q6HR PRN #15 tablet 02/07/17 Unknown Rx Naproxen [Naprosyn TAB] 375 mg PO BID PRN #30 tablet 02/11/17 Unknown Rx Cyclobenzaprine [Flexeril] 10 mg PO BID PRN #20 tablet 02/20/17 Unknown Rx Naproxen [Naprosyn] 500 mg PO BID PRN #20 tablet 04/21/17 Unknown Rx Acetaminophen [Acetaminophen TAB] 500 mg PO Q6HR PRN #20 tablet 07/27/17 Unknown Rx Acetaminophen/Codeine [Tylenol 1 tab PO Q6H PRN #4 tab 07/27/17 Unknown Rx /Codeine # 3 tab] Cyclobenzaprine [Flexeril 10 MG 10 mg PO TID PRN #10 tablet 08/25/17 Unknown Rx TAB] Naproxen 500 mg PO BID PRN #60 tablet 08/25/17 Unknown Rx traMADol [Ultram 50 MG tab] 50 mg PO Q6HR PRN #20 tablet 08/25/17 Unknown Rx ED Physical Exam - General Limitations: No Limitations General appearance: alert, in no apparent distress - Head Head exam: Present: atraumatic, normocephalic - Eye Eye exam: Present: normal appearance, PERRL, EOMI. Absent: scleral icterus - ENT ENT exam: Present: mucous membranes moist - Neck Neck exam: Present: normal inspection. Absent: tenderness, meningismus - Respiratory Respiratory exam: Present: normal lung sounds bilaterally. Absent: respiratory distress - Cardiovascular Cardiovascular Exam: Present: regular rate, normal rhythm. Absent: systolic murmur, diastolic murmur, rubs, gallop - GI/Abdominal GI/Abdominal exam: Present: soft, normal bowel sounds. Absent: distended, tenderness, guarding, rebound, rigid - Rectal Rectal exam: Present: deferred - Extremities Exam Extremities exam: Present: normal inspection - Back Exam Back exam: Present: normal inspection - Neurological Exam Neurological exam: Present: alert, oriented X3, CN II-XII intact. Absent: motor sensory deficit - Psychiatric Psychiatric exam: Present: normal affect, normal mood - Skin Skin exam: Present: warm, dry, intact, normal color. Absent: rash ED Course Vital Signs 08/26/17 08/27/17 08/27/17 22:37 06:00 06:49 Temperature 98.7 F 97.8 F Pulse Rate 112 H 85 88 Respiratory 18 16 16 Rate Blood Pressure 111/78 142/94 Blood Pressure [Left] O2 Sat by Pulse 98 98 98 Oximetry 08/27/17 08/27/17 08/27/17 07:05 07:24 08:51 Temperature 98.9 F Pulse Rate 83 100 H Respiratory 20 13 17 Rate Blood Pressure 103/57 Blood Pressure 125/87 [Left] O2 Sat by Pulse 98 97 Oximetry 08/27/17 08/27/17 08/27/17 08:53 08:55 08:57 Temperature Pulse Rate 133 H 127 H Respiratory 23 20 Rate Blood Pressure 103/57 103/57 103/57 Blood Pressure [Left] O2 Sat by Pulse 98 93 89 Oximetry 08/27/17 08/27/17 08/27/17 08:59 09:00 09:01 Temperature Pulse Rate 85 80 85 Respiratory 18 16 18 Rate Blood Pressure 103/57 100/53 100/53 Blood Pressure [Left] O2 Sat by Pulse 98 98 97 Oximetry 08/27/17 08/27/17 08/27/17 09:03 09:05 09:07 Temperature Pulse Rate 87 68 70 Respiratory 12 15 16 Rate Blood Pressure 100/53 100/53 100/53 Blood Pressure [Left] O2 Sat by Pulse 99 98 99 Oximetry 08/27/17 08/27/17 08/27/17 09:09 09:11 09:13 Temperature Pulse Rate 76 79 74 Respiratory 16 17 17 Rate Blood Pressure 100/53 100/53 100/53 Blood Pressure [Left] O2 Sat by Pulse 98 98 98 Oximetry 08/27/17 08/27/17 08/27/17 09:15 09:17 09:19 Temperature Pulse Rate 84 82 80 Respiratory 16 18 19 Rate Blood Pressure 100/53 100/53 100/53 Blood Pressure [Left] O2 Sat by Pulse 98 99 98 Oximetry 08/27/17 08/27/17 08/27/17 09:21 09:23 09:25 Temperature Pulse Rate Respiratory Rate Blood Pressure 100/53 100/53 100/53 Blood Pressure [Left] O2 Sat by Pulse 98 97 97 Oximetry 08/27/17 08/27/17 08/27/17 09:27 09:29 09:30 Temperature Pulse Rate Respiratory Rate Blood Pressure 100/53 100/53 105/58 Blood Pressure [Left] O2 Sat by Pulse 95 97 Oximetry 08/27/17 08/27/17 08/27/17 09:31 09:33 09:35 Temperature Pulse Rate Respiratory Rate Blood Pressure 105/58 105/58 105/58 Blood Pressure [Left] O2 Sat by Pulse 98 97 98 Oximetry 08/27/17 08/27/17 08/27/17 09:37 09:39 09:41 Temperature Pulse Rate Respiratory Rate Blood Pressure 105/58 105/58 105/58 Blood Pressure [Left] O2 Sat by Pulse 99 98 98 Oximetry 08/27/17 08/27/17 08/27/17 09:43 09:45 09:47 Temperature Pulse Rate Respiratory Rate Blood Pressure 105/58 105/58 105/58 Blood Pressure [Left] O2 Sat by Pulse 96 98 95 Oximetry 08/27/17 08/27/17 08/27/17 09:49 09:51 09:53 Temperature Pulse Rate Respiratory Rate Blood Pressure 105/58 105/58 105/58 Blood Pressure [Left] O2 Sat by Pulse 97 97 97 Oximetry 08/27/17 08/27/17 08/27/17 09:55 09:57 09:59 Temperature Pulse Rate Respiratory Rate Blood Pressure 105/58 105/58 105/58 Blood Pressure [Left] O2 Sat by Pulse 97 97 99 Oximetry 08/27/17 08/27/17 08/27/17 10:01 10:03 10:05 Temperature Pulse Rate Respiratory Rate Blood Pressure 118/64 118/64 118/64 Blood Pressure [Left] O2 Sat by Pulse 100 100 98 Oximetry 08/27/17 08/27/17 08/27/17 10:07 10:09 10:11 Temperature Pulse Rate Respiratory Rate Blood Pressure 118/64 118/64 118/64 Blood Pressure [Left] O2 Sat by Pulse 99 98 98 Oximetry 08/27/17 08/27/17 08/27/17 10:13 10:15 10:17 Temperature Pulse Rate Respiratory Rate Blood Pressure 118/64 118/64 118/64 Blood Pressure [Left] O2 Sat by Pulse 99 99 98 Oximetry 08/27/17 08/27/17 08/27/17 10:19 10:21 10:23 Temperature Pulse Rate Respiratory Rate Blood Pressure 118/64 118/64 118/64 Blood Pressure [Left] O2 Sat by Pulse 98 93 94 Oximetry 08/27/17 08/27/17 10:25 10:34 Temperature 98.6 F Pulse Rate 89 Respiratory 18 Rate Blood Pressure 118/64 Blood Pressure 118/64 [Left] O2 Sat by Pulse 98 98 Oximetry - Reevaluation(s) Reevaluation #1: Patient is admitted to the hospitalist service for further care and evaluation stable condition. Hospitalist advised the patient will likely need a CIWA protocol. A milligram of Ativan given by mouth. Patient is not actively currently withdrawing. 08/27/17 10:47 Reevaluation #2: Patient has been admitted by the hospitalist. A d-dimer was in the 400s. A CTA is pending. I added a lipase. Patient is admitted in stable condition. 08/27/17 11:04 CHALO score - Chalo Score Age > 65: (0) No Aspirin use within the Past 7 Days: (0) No 3 or more CAD Risk Factors: (0) No 2 or more Angina events in past 24 hrs: (0) No Known CAD with more than 50% Stenosis: (0) No Elevated Cardiac Markers: (0) No ST Deviation Greater than 0.5mm: (0) No CHALO Score: 0 ED Medical Decision Making - Lab Data Result diagrams: 08/26/17 23:07 08/26/17 23:07 Laboratory Results - last 24 hr 08/26/17 08/26/17 08/27/17 23:07 23:07 03:57 WBC 5.9 RBC 4.82 Hgb 13.9 Hct 42.6 MCV 88 MCH 29 MCHC 33 RDW 14.9 Plt Count 206 Add Manual Diff Complete Total Counted 100 Seg Neutrophils % Drapery Inspector Seg Neuts % (Manual) 43.0 Band Neutrophils % 0 Lymphocytes % (Manual) 51.0 H Reactive Lymphs % (Man) 0 Monocytes % (Manual) 2.0 Eosinophils % (Manual) 4.0 Basophils % (Manual) 0 Metamyelocytes % 0 Myelocytes % 0 Promyelocytes % 0 Blast Cells % 0 Nucleated RBC % Not Reportable Seg Neutrophils # Man 2.5 Band Neutrophils # 0.0 Lymphocytes # (Manual) 3.0 Abs React Lymphs (Man) 0.0 Monocytes # (Manual) 0.1 Eosinophils # (Manual) 0.2 Basophils # (Manual) 0.0 Metamyelocytes # 0.0 Myelocytes # 0.0 Promyelocytes # 0.0 Blast Cells # 0.0 WBC Morphology Not Reportable Hypersegmented Neuts Not Reportable Hyposegmented Neuts Not Reportable Hypogranular Neuts Not Reportable Smudge Cells Not Reportable Toxic Granulation Not Reportable Toxic Vacuolation Not Reportable Dohle Bodies Not Reportable Pelger-Huet Anomaly Not Reportable Katie Rods Not Reportable Platelet Estimate Consistent w auto Clumped Platelets Not Reportable Plt Clumps, EDTA Not Reportable Large Platelets Not Reportable Giant Platelets Not Reportable Platelet Satelliting Not Reportable Plt Morphology Comment Not Reportable RBC Morphology Not Reportable Dimorphic RBCs Not Reportable Polychromasia Not Reportable Hypochromasia Not Reportable Poikilocytosis Not Reportable Anisocytosis Not Reportable Microcytosis Not Reportable Macrocytosis Not Reportable Spherocytes Not Reportable Pappenheimer Bodies Not Reportable Sickle Cells Not Reportable Target Cells Few Tear Drop Cells Not Reportable Ovalocytes Not Reportable Helmet Cells Not Reportable [place] Bodies Not Reportable [place] Rings Not Reportable [place] Cells Not Reportable Bite Cells Not Reportable Crenated Cell Not Reportable Elliptocytes Not Reportable Acanthocytes (Spur) Not Reportable Rouleaux Not Reportable Hemoglobin C Crystals Not Reportable Schistocytes Not Reportable Malaria parasites Not Reportable Connor Bodies Not Reportable Hem Pathologist Commnt No PT INR APTT D-Dimer Sodium 141 Potassium 4.0 Chloride 102.4 Carbon Dioxide 26 Anion Gap 17 BUN 8 L Creatinine 0.7 L Estimated GFR > 60 BUN/Creatinine Ratio 11 Glucose 97 Calcium 8.2 L Magnesium Total Bilirubin Direct Bilirubin Indirect Bilirubin AST ALT Alkaline Phosphatase Troponin T < 0.010 < 0.010 NT-Pro-B Natriuret Pep Total Protein Albumin Albumin/Globulin Ratio Urine Opiates Screen Urine Methadone Screen Ur Barbiturates Screen Ur Phencyclidine Scrn Ur Amphetamines Screen U Benzodiazepines Scrn Urine Cocaine Screen U Marijuana (THC) Screen 08/27/17 08/27/17 08/27/17 08:08 08:08 08:08 WBC RBC Hgb Hct MCV MCH MCHC RDW Plt Count Add Manual Diff Total Counted Seg Neutrophils % Seg Neuts % (Manual) Band Neutrophils % Lymphocytes % (Manual) Reactive Lymphs % (Man) Monocytes % (Manual) Eosinophils % (Manual) Basophils % (Manual) Metamyelocytes % Myelocytes % Promyelocytes % Blast Cells % Nucleated RBC % Seg Neutrophils # Man Band Neutrophils # Lymphocytes # (Manual) Abs React Lymphs (Man) Monocytes # (Manual) Eosinophils # (Manual) Basophils # (Manual) Metamyelocytes # Myelocytes # Promyelocytes # Blast Cells # WBC Morphology Hypersegmented Neuts Hyposegmented Neuts Hypogranular Neuts Smudge Cells Toxic Granulation Toxic Vacuolation Dohle Bodies Pelger-Huet Anomaly Katie Rods Platelet Estimate Clumped Platelets Plt Clumps, EDTA Large Platelets Giant Platelets Platelet Satelliting Plt Morphology Comment RBC Morphology Dimorphic RBCs Polychromasia Hypochromasia Poikilocytosis Anisocytosis Microcytosis Macrocytosis Spherocytes Pappenheimer Bodies Sickle Cells Target Cells Tear Drop Cells Ovalocytes Helmet Cells [place] Bodies [place] Rings [place]den Cells Bite Cells Crenated Cell Elliptocytes Acanthocytes (Spur) Rouleaux Hemoglobin C Crystals Schistocytes Malaria parasites Connor Bodies Hem Pathologist Commnt PT 12.5 INR 0.89 APTT 27.3 D-Dimer 440.69 H Sodium Potassium Chloride Carbon Dioxide Anion Gap BUN Creatinine Estimated GFR BUN/Creatinine Ratio Glucose Calcium Magnesium 2.40 H Total Bilirubin 0.40 Direct Bilirubin 0.2 Indirect Bilirubin 0.2 AST 23 ALT 10 Alkaline Phosphatase 104 Troponin T < 0.010 NT-Pro-B Natriuret Pep 31.56 Total Protein 6.5 Albumin 3.6 L Albumin/Globulin Ratio 1.2 Urine Opiates Screen Urine Methadone Screen Ur Barbiturates Screen Ur Phencyclidine Scrn Ur Amphetamines Screen U Benzodiazepines Scrn Urine Cocaine Screen U Marijuana (THC) Screen 08/27/17 09:13 WBC RBC Hgb Hct MCV MCH MCHC RDW Plt Count Add Manual Diff Total Counted Seg Neutrophils % Seg Neuts % (Manual) Band Neutrophils % Lymphocytes % (Manual) Reactive Lymphs % (Man) Monocytes % (Manual) Eosinophils % (Manual) Basophils % (Manual) Metamyelocytes % Myelocytes % Promyelocytes % Blast Cells % Nucleated RBC % Seg Neutrophils # Man Band Neutrophils # Lymphocytes # (Manual) Abs React Lymphs (Man) Monocytes # (Manual) Eosinophils # (Manual) Basophils # (Manual) Metamyelocytes # Myelocytes # Promyelocytes # Blast Cells # WBC Morphology Hypersegmented Neuts Hyposegmented Neuts Hypogranular Neuts Smudge Cells Toxic Granulation Toxic Vacuolation Dohle Bodies Pelger-Huet Anomaly Katie Rods Platelet Estimate Clumped Platelets Plt Clumps, EDTA Large Platelets Giant Platelets Platelet Satelliting Plt Morphology Comment RBC Morphology Dimorphic RBCs Polychromasia Hypochromasia Poikilocytosis Anisocytosis Microcytosis Macrocytosis Spherocytes Pappenheimer Bodies Sickle Cells Target Cells Tear Drop Cells Ovalocytes Helmet Cells [place] Bodies [place] Rings Lisa Cells Bite Cells Crenated Cell Elliptocytes Acanthocytes (Spur) Rouleaux Hemoglobin C Crystals Schistocytes Malaria parasites Connor Bodies Hem Pathologist Commnt PT INR APTT D-Dimer Sodium Potassium Chloride Carbon Dioxide Anion Gap BUN Creatinine Estimated GFR BUN/Creatinine Ratio Glucose Calcium Magnesium Total Bilirubin Direct Bilirubin Indirect Bilirubin AST ALT Alkaline Phosphatase Troponin T NT-Pro-B Natriuret Pep Total Protein Albumin Albumin/Globulin Ratio Urine Opiates Screen Presumptive negative Urine Methadone Screen Presumptive negative Ur Barbiturates Screen Presumptive negative Ur Phencyclidine Scrn Presumptive negative Ur Amphetamines Screen Presumptive negative U Benzodiazepines Scrn Presumptive negative Urine Cocaine Screen Presumptive negative U Marijuana (THC) Screen Presumptive negative - EKG Data -: EKG Interpreted by Me EKG shows normal: sinus rhythm, axis (borderline left axis deviation), intervals , QRS complexes, ST-T waves Rate: normal - EKG Data Interpretation: no acute changes Critical care attestation.: If time is entered above; I have spent that time in minutes in the direct care of this critically ill patient, excluding procedure time. ED Disposition Clinical Impression: Alcoholism Chest pain Qualifiers: Chest pain type: unspecified Qualified Code(s): R07.9 - Chest pain, unspecified Disposition: -09 OP ADMIT IP TO THIS HOSP Is pt being admited?: Yes Does the pt Need Aspirin: Yes Condition: Stable Instructions: Chest Pain (ED) Referrals: PRIMARY CARE, [Primary Care Provider] - 3-5 Days Time of Disposition: 11:01
[2017-08-27] MEDS ORDERED: SODIUM CHLORIDE FLUSH SYRINGE 10 ML IV PRN (14:44)
[2017-08-27] MEDS ORDERED: ZOFRAN IV PRN (14:46)
[2017-08-27] MEDS ORDERED: TYLENOL PO PRN (14:46)
[2017-08-27] MEDS ORDERED: PERCOCET 5/325 PO PRN (14:46)
[2017-08-27] MEDS ORDERED: NAPROSYN PO PRN (14:47)
[2017-08-27] MEDS ORDERED: ULTRAM PO PRN (14:47)
[2017-08-27] MEDS ORDERED: FLEXERIL PO PRN (14:47)
--- NOTE | 2017-08-27 15:25 | Cat Scan Report ---
CTA chest: History: Chest pain was d-dimer. Findings: No evidence of aortic aneurysm or pulmonary embolism. No mediastinal mass or adenopathy. No pleural pericardial effusion. Small sliding hiatal hernia. Normal lung parenchyma. No nodularity or consolidation. Impression: No evidence of pulmonary embolism.
[2017-08-27] MEDS: LOVENOX SUB-Q SCH ×2 (15:41→23:35)
--- NOTE | 2017-08-27 16:17 | History and Physical Report ---
History of Present Illness Date of admission: 08/27/17 11:03 Chief complaint: chest pain History of present illness: Zhou is a middle-aged man who presents with chest pains * 1 day. He was just at the ER yesterday complaining of left knee pain when she stated was chronic and had a flare-up of pain. We have Alexa extremity Doppler that were negative after which he went home and he seated at the chest mean was improved. After getting home he said it having varying test chest pain and epigastric pain prompted him to come back to the hospital. Since being in the ER has received some pain medications and he feels better. Past medical history osteoarthritis of knee, back and neck. Past surgical history remote left knee surgery family history denies family history of coronary artery disease or heart problems Social history he lives with family, his brother and his daughter. He denies any history of tobacco illicit drug use drinks about one beer every week. Medications and Allergies Allergies Allergy/AdvReac Type Severity Reaction Status Date / Time No Known Allergies Allergy Verified 08/27/17 08:02 Home Medications Medication Instructions Recorded Confirmed Last Taken Type Cyclobenzaprine [Flexeril 10 MG 10 mg PO TID PRN #10 tablet 08/25/17 08/27/17 Unknown Rx TAB] Naproxen 500 mg PO BID PRN #60 tablet 08/25/17 08/27/17 Unknown Rx traMADol [Ultram 50 MG tab] 50 mg PO Q6HR PRN #20 tablet 08/25/17 08/27/17 Unknown Rx Active Meds: Active Medications Acetaminophen (Tylenol) 650 mg PO Q4H PRN PRN Reason: Pain MILD(1-3)/Fever >100.5/[facility] Aspirin (Aspirin) 325 mg PO QDAY [facility] Cyclobenzaprine HCl (Flexeril) 10 mg PO TID PRN PRN Reason: Muscle Spasm Enoxaparin Sodium (Lovenox) 80 mg 1 mg/kg (80 mg) SUB-Q Q12HR [facility] Last Admin: 08/27/17 15:41 Dose: 80 mg Naproxen (Naprosyn) 500 mg PO BID PRN PRN Reason: Pain Ondansetron HCl (Zofran) 4 mg IV Q8H PRN PRN Reason: Nausea And Vomiting Oxycodone/Acetaminophen (Percocet 5/325) 1 tab PO Q6H PRN PRN Reason: Pain, Moderate (4-6) Sodium Chloride (Sodium Chloride Flush Syringe 10 Ml) 10 ml IV PRN PRN PRN Reason: LINE FLUSH Tramadol HCl (Ultram) 50 mg PO Q6HR PRN PRN Reason: Pain Review of Systems All systems: negative (10 pt ros is otherwise negative) Constitutional: no weight loss Ears, nose, mouth and throat: no ear pain Cardiovascular: chest pain Respiratory: no cough Gastrointestinal: abdominal pain Genitourinary Male: no dysuria Rectal: no pain Musculoskeletal: no neck stiffness Integumentary: no rash Neurological: no head injury Psychiatric: no anxiety Endocrine: no cold intolerance Hematologic/Lymphatic: easy bleeding, no easy bruising Allergic/Immunologic: no urticaria Exam - Constitutional Vitals: Temp Pulse Resp BP Pulse Ox 98.6 F 89 18 118/64 98 08/27/17 10:34 08/27/17 10:34 08/27/17 10:34 08/27/17 10:34 08/27/17 10:34 General appearance: Present: no acute distress, well-nourished - EENT Eyes: Present: PERRL ENT: hearing intact, clear oral mucosa - Neck Neck: Present: supple, normal ROM - Respiratory Respiratory effort: normal Respiratory: bilateral: CTA - Cardiovascular Heart Sounds: Present: S1 & S2. Absent: rub, click - Extremities Extremities: pulses symmetrical, No edema Peripheral Pulses: within normal limits - Abdominal General gastrointestinal: Present: soft, non-tender, non-distended, normal bowel sounds Male genitourinary: Present: normal - Integumentary Integumentary: Present: clear, warm, dry - Musculoskeletal Musculoskeletal: gait normal, strength equal bilaterally - Psychiatric Psychiatric: appropriate mood/affect, intact judgment & insight - Neurologic Neurologic: CNII-XII intact, moves all extremities Results - Labs CBC & Chem 7: 08/26/17 23:07 08/26/17 23:07 Labs: Laboratory Last Values WBC 5.9 K/mm3 (4.5-11.0) 08/26/17 23:07 RBC 4.82 M/mm3 (3.65-5.03) 08/26/17 23:07 Hgb 13.9 gm/dl (11.8-15.2) 08/26/17 23:07 Hct 42.6 % (35.5-45.6) 08/26/17 23:07 MCV 88 fl (84-94) 08/26/17 23:07 MCH 29 pg (28-32) 08/26/17 23:07 MCHC 33 % (32-34) 08/26/17 23:07 RDW 14.9 % (13.2-15.2) 08/26/17 23:07 Plt Count 206 K/mm3 (140-440) 08/26/17 23:07 Add Manual Diff Complete 08/26/17 23:07 Total Counted 100 08/26/17 23:07 Seg Neutrophils % Real Estate Development Manager 08/26/17 23:07 Seg Neuts % (Manual) 43.0 % (40.0-70.0) 08/26/17 23:07 Band Neutrophils % 0 % 08/26/17 23:07 Lymphocytes % (Manual) 51.0 % (13.4-35.0) H 08/26/17 23:07 Reactive Lymphs % (Man) 0 % 08/26/17 23:07 Monocytes % (Manual) 2.0 % (0.0-7.3) 08/26/17 23:07 Eosinophils % (Manual) 4.0 % (0.0-4.3) 08/26/17 23:07 Basophils % (Manual) 0 % (0.0-1.8) 08/26/17 23:07 Metamyelocytes % 0 % 08/26/17 23:07 Myelocytes % 0 % 08/26/17 23:07 Promyelocytes % 0 % 08/26/17 23:07 Blast Cells % 0 % 08/26/17 23:07 Nucleated RBC % Not Reportable 08/26/17 23:07 Seg Neutrophils # Man 2.5 K/mm3 (1.8-7.7) 08/26/17 23:07 Band Neutrophils # 0.0 K/mm3 08/26/17 23:07 Lymphocytes # (Manual) 3.0 K/mm3 (1.2-5.4) 08/26/17 23:07 Abs React Lymphs (Man) 0.0 K/mm3 08/26/17 23:07 Monocytes # (Manual) 0.1 K/mm3 (0.0-0.8) 08/26/17 23:07 Eosinophils # (Manual) 0.2 K/mm3 (0.0-0.4) 08/26/17 23:07 Basophils # (Manual) 0.0 K/mm3 (0.0-0.1) 08/26/17 23:07 Metamyelocytes # 0.0 K/mm3 08/26/17 23:07 Myelocytes # 0.0 K/mm3 08/26/17 23:07 Promyelocytes # 0.0 K/mm3 08/26/17 23:07 Blast Cells # 0.0 K/mm3 08/26/17 23:07 WBC Morphology Not Reportable 08/26/17 23:07 Hypersegmented Neuts Not Reportable 08/26/17 23:07 Hyposegmented Neuts Not Reportable 08/26/17 23:07 Hypogranular Neuts Not Reportable 08/26/17 23:07 Smudge Cells Not Reportable 08/26/17 23:07 Toxic Granulation Not Reportable 08/26/17 23:07 Toxic Vacuolation Not Reportable 08/26/17 23:07 Dohle Bodies Not Reportable 08/26/17 23:07 Pelger-Huet Anomaly Not Reportable 08/26/17 23:07 Katie Rods Not Reportable 08/26/17 23:07 Platelet Estimate Consistent w auto 08/26/17 23:07 Clumped Platelets Not Reportable 08/26/17 23:07 Plt Clumps, EDTA Not Reportable 08/26/17 23:07 Large Platelets Not Reportable 08/26/17 23:07 Giant Platelets Not Reportable 08/26/17 23:07 Platelet Satelliting Not Reportable 08/26/17 23:07 Plt Morphology Comment Not Reportable 08/26/17 23:07 RBC Morphology Not Reportable 08/26/17 23:07 Dimorphic RBCs Not Reportable 08/26/17 23:07 Polychromasia Not Reportable 08/26/17 23:07 Hypochromasia Not Reportable 08/26/17 23:07 Poikilocytosis Not Reportable 08/26/17 23:07 Anisocytosis Not Reportable 08/26/17 23:07 Microcytosis Not Reportable 08/26/17 23:07 Macrocytosis Not Reportable 08/26/17 23:07 Spherocytes Not Reportable 08/26/17 23:07 Pappenheimer Bodies Not Reportable 08/26/17 23:07 Sickle Cells Not Reportable 08/26/17 23:07 Target Cells Few 08/26/17 23:07 Tear Drop Cells Not Reportable 08/26/17 23:07 Ovalocytes Not Reportable 08/26/17 23:07 Helmet Cells Not Reportable 08/26/17 23:07 [place] Bodies Not Reportable 08/26/17 23:07 [place] Rings Not Reportable 08/26/17 23:07 Lisa Cells Not Reportable 08/26/17 23:07 Bite Cells Not Reportable 08/26/17 23:07 Crenated Cell Not Reportable 08/26/17 23:07 Elliptocytes Not Reportable 08/26/17 23:07 Acanthocytes (Spur) Not Reportable 08/26/17 23:07 Rouleaux Not Reportable 08/26/17 23:07 Hemoglobin C Crystals Not Reportable 08/26/17 23:07 Schistocytes Not Reportable 08/26/17 23:07 Malaria parasites Not Reportable 08/26/17 23:07 Connor Bodies Not Reportable 08/26/17 23:07 Hem Pathologist Commnt No 08/26/17 23:07 PT 12.5 Sec. (12.2-14.9) 08/27/17 08:08 INR 0.89 (0.87-1.13) 08/27/17 08:08 APTT 27.3 Sec. (24.2-36.6) 08/27/17 08:08 D-Dimer 440.69 ng/mlDDU (0-234) H 08/27/17 08:08 Sodium 141 mmol/L (137-145) 08/26/17 23:07 Potassium 4.0 mmol/L (3.6-5.0) 08/26/17 23:07 Chloride 102.4 mmol/L (98-107) 08/26/17 23:07 Carbon Dioxide 26 mmol/L (22-30) 08/26/17 23:07 Anion Gap 17 mmol/L 08/26/17 23:07 BUN 8 mg/dL (9-20) L 08/26/17 23:07 Creatinine 0.7 mg/dL (0.8-1.5) L 08/26/17 23:07 Estimated GFR > 60 ml/min 08/26/17 23:07 BUN/Creatinine Ratio 11 % 08/26/17 23:07 Glucose 97 mg/dL (75-100) 08/26/17 23:07 Calcium 8.2 mg/dL (8.4-10.2) L 08/26/17 23:07 Magnesium 2.40 mg/dL (1.7-2.3) H 08/27/17 08:08 Total Bilirubin 0.40 mg/dL (0.1-1.2) 08/27/17 08:08 Direct Bilirubin 0.2 mg/dL (0-0.2) 08/27/17 08:08 Indirect Bilirubin 0.2 mg/dL 08/27/17 08:08 AST 23 units/L (5-40) 08/27/17 08:08 ALT 10 units/L (7-56) 08/27/17 08:08 Alkaline Phosphatase 104 units/L (35-129) 08/27/17 08:08 Troponin T < 0.010 ng/mL (0.00-0.029) 08/27/17 08:08 NT-Pro-B Natriuret Pep 31.56 pg/mL (0-900) 08/27/17 08:08 Total Protein 6.5 g/dL (6.3-8.2) 08/27/17 08:08 Albumin 3.6 g/dL (3.9-5) L 08/27/17 08:08 Albumin/Globulin Ratio 1.2 % 08/27/17 08:08 Urine Opiates Screen Presumptive negative 08/27/17 09:13 Urine Methadone Screen Presumptive negative 08/27/17 09:13 Ur Barbiturates Screen Presumptive negative 08/27/17 09:13 Ur Phencyclidine Scrn Presumptive negative 08/27/17 09:13 Ur Amphetamines Screen Presumptive negative 08/27/17 09:13 U Benzodiazepines Scrn Presumptive negative 08/27/17 09:13 Urine Cocaine Screen Presumptive negative 08/27/17 09:13 U Marijuana (THC) Screen Presumptive negative 08/27/17 09:13 Drugs of Abuse Note Disclamer 08/27/17 09:13 - Imaging and Cardiology Chest x-ray: image reviewed (no acute findings) Assessment and Plan Assessment and plan: 56M with CP and elevated d-dimer and epigastric pain CP with elevated D dimer obtain CtA chest, if neg for PE, will need MPI epigastric pain suspect gerd, start PPI OA continue pain meds dvt ppx lovenox
[2017-08-27 16:49] LABS: BUN/Creatinine Ratio 13; Blood Urea Nitrogen 9 mg/dL (9-20); Calcium 8.6 mg/dL (8.4-10.2); Hemolysis Index 11
[2017-08-27] MEDS ORDERED: PEPCID PO SCH (22:00)
[2017-08-27] MEDS: PROTONIX PO SCH (23:28)
[2017-08-28] MEDS ORDERED: LEXISCAN IV ONE (08:46)
[2017-08-28] MEDS ORDERED: ASPIRIN PO SCH (10:00)
[2017-08-28] MEDS: PROTONIX PO SCH (11:55)
[2017-08-28] MEDS: LOVENOX SUB-Q SCH (11:55)
--- NOTE | 2017-08-28 16:15 | Discharge Summary ---
Providers - Providers Date of Admission: 08/27/17 11:03 Attending physician: JOSE ANTONIO WILSON MD Primary care physician: RECIPROCATING DRILL OPERATOR Hospitalization Condition: Stable Exam - Constitutional Vitals: Temp Pulse Resp BP Pulse Ox 97.5 F L 112 H 19 118/82 99 08/28/17 07:56 08/28/17 10:12 08/28/17 07:56 08/28/17 10:12 08/28/17 07:55 Plan Follow up with: PRIMARY CARE, [Primary Care Provider] - 3-5 Days Prescriptions: Pantoprazole [Protonix TAB] 20 mg PO QDAY #30 tablet.
--- NOTE | 2017-08-28 16:37 | Treadmill Report ---
THALLIUM STRESS TEST LEFT VENTRICLE: Left ventricular chamber size is within normal limits. Perfusion study demonstrates homogeneous uptake of the tracer in all segment. No significant perfusion defect identified. Gated analysis demonstrates normal left ventricular systolic function, ejection fraction 65%. CONCLUSION: Normal myocardial perfusion study. JOB# [id number] CA/NTS
[2017-08-28 18:05] VITALS: BP 111/83
== END 2017-08-28 18:15 | disposition home or self-care (01) | DRG 392 ==
LOC: ED 21:31 → 4A 08-27 11:03 → 3A 08-27 18:01
PROVIDERS: ADMIT Internal Medicine; ATTEND Internal Medicine
DX: K21.9 Gastro-esophageal reflux disease without esophagitis (principal); M17.9 Osteoarthritis of knee, unspecified; R07.89 Other chest pain; Z82.49 Family history of ischemic heart disease and other diseases of the circulatory system
CPT/HCPCS: 36415; 71275; 78452; 80048; 80074; 80307; 83690; 83735; 83880; 84484; 85007; 85025; 85379; 85610; 85730; 93005; 93010; 93017; 93306; A9502; J1650; J2785; Q9967

== ENCOUNTER 2017-08-31 00:30 | Emergency (ER) | payer SELFPAY ==
[2017-08-31 00:37] VITALS: BP 120/78
--- NOTE | 2017-08-31 01:28 | Emergency Department Report ---
Chief Complaint: Back Pain/Injury Stated Complaint: BACK PAIN Time Seen by Provider: 08/31/17 01:24 - HPI History of Present Illness: 56-year-old -[place] male presents to triage for complaint of back pain. Patient was seen here 2 days ago for the same issue and was given t naproxen 500 mg twice a day for 30 days. As well as tramadol and Protonix and Flexeril. Patient denies any recent trauma to his back. Patient is requesting a sandwich and something to drink. - Exam Vital Signs: Vital Signs 08/31/17 08/31/17 00:30 00:37 Temperature 97.6 F 97.5 F L Pulse Rate 121 H 117 H Respiratory 22 16 Rate Blood Pressure 120/78 120/78 O2 Sat by Pulse 100 100 Oximetry Physical Exam: Patient's alert and oriented. Patient appears to be under the influence of alcohol. Patient has full range of motion of his back is no swelling there is no bruising appreciated. Patient has steady gait MSE screening note: Focused history and physical exam performed. Due to findings the following was ordered: We will refer patient to [facility] for chronic [facility] pain. I encouraged patient to take the medication of his prescribed on the and the . ED Disposition for MSE Clinical Impression: Chronic back pain Qualifiers: Back pain location: low back pain Back pain laterality: unspecified Sciatica presence: without sciatica Qualified Code(s): M54.5 - Low back pain; G89.29 - Other chronic pain Condition: Stable Referrals: PRIMARY CARE [Primary Care Provider] - 3-[address] [facility] [Provider Group] - 3-5 Days
[2017-08-31] MEDS ORDERED: TORADOL IM ONE (01:35)
--- NOTE | 2017-08-31 02:06 | Emergency Department Report ---
<RADHA MUNIZ - Last Filed: 08/31/17 01:35> ED Back Pain/Injury HPI - General Chief Complaint: Back Pain/Injury Stated Complaint: BACK PAIN Time Seen by Provider: 08/31/17 01:24 Source: patient Limitations: No Limitations - History of Present Illness Initial Comments: 56-year-old -[place]ian male presents to triage for complaint of back pain. Patient was seen here 2 days ago for the same issue and was given t naproxen 500 mg twice a day for 30 days. As well as tramadol and Protonix and Flexeril. Patient denies any recent trauma to his back. Patient is requesting a sandwich and something to drink. MD Complaint: back pain -: month(s) Similar Symptoms Previously: Yes Severity scale (0 -10): 8 Consistency: intermittent Improves With: none Worsens With: movement Associated Symptoms: denies other symptoms - Related Data Previous Rx's Medication Instructions Recorded Last Taken Type Cyclobenzaprine [Flexeril 10 MG 10 mg PO TID PRN #10 tablet 08/25/17 Unknown Rx TAB] Naproxen 500 mg PO BID PRN #60 tablet 08/25/17 Unknown Rx traMADol [Ultram 50 MG tab] 50 mg PO Q6HR PRN #20 tablet 08/25/17 Unknown Rx Pantoprazole [Protonix TAB] 20 mg PO QDAY #30 tablet. 08/28/17 Unknown Rx Allergies Allergy/AdvReac Type Severity Reaction Status Date / Time No Known Allergies Allergy Verified 08/27/17 08:02 ED Review of Systems ROS: Stated complaint: BACK PAIN Other details as noted in HPI ED Past Medical Hx - Past Medical History Additional medical history: Back and neck pn, chronic L knee pain, ETOH abuse. herniated disc - Surgical History Additional Surgical History: Left Knee. skin graft to right hand - Social History Smoking Status: Current Every Day Smoker Substance Use Type: Alcohol - Medications Home Medications: Home Medications Medication Instructions Recorded Confirmed Last Taken Type Cyclobenzaprine [Flexeril 10 MG 10 mg PO TID PRN #10 tablet 08/25/17 08/27/17 Unknown Rx TAB] Naproxen 500 mg PO BID PRN #60 tablet 08/25/17 08/27/17 Unknown Rx traMADol [Ultram 50 MG tab] 50 mg PO Q6HR PRN #20 tablet 08/25/17 08/27/17 Unknown Rx Pantoprazole [Protonix TAB] 20 mg PO QDAY #30 tablet. 08/28/17 Unknown Rx ED Physical Exam - General Limitations: No Limitations General appearance: appears intoxicated - Head Head exam: Present: atraumatic, normocephalic - Eye Eye exam: Present: normal appearance - ENT ENT exam: Present: mucous membranes moist - Respiratory Respiratory exam: Present: normal lung sounds bilaterally. Absent: respiratory distress - Cardiovascular Cardiovascular Exam: Present: regular rate, normal rhythm. Absent: systolic murmur, diastolic murmur, rubs, gallop - Extremities Exam Extremities exam: Present: normal inspection, full ROM. Absent: tenderness - Back Exam Back exam: Present: normal inspection, full ROM. Absent: tenderness - Neurological Exam Neurological exam: Present: alert, oriented X3 - Psychiatric Psychiatric exam: Present: normal affect - Skin Skin exam: Present: warm, dry, intact, normal color. Absent: rash ED Course Vital Signs 08/31/17 08/31/17 08/31/17 00:30 00:37 01:49 Temperature 97.6 F 97.5 F L Pulse Rate 121 H 117 H Respiratory 22 16 18 Rate Blood Pressure 120/78 120/78 O2 Sat by Pulse 100 100 Oximetry 08/31/17 06:56 Temperature Pulse Rate 84 Respiratory 18 Rate Blood Pressure O2 Sat by Pulse 97 Oximetry ED Medical Decision Making - Medical Decision Making Patient's been evaluated by this provider fast track. Urinalysis was ordered but patient did not produce any urine. Discharge patient home on current pain medication that was prescribed on the N the . Critical care attestation.: If time is entered above; I have spent that time in minutes in the direct care of this critically ill patient, excluding procedure time. ED Disposition Disposition: DC-01 TO HOME OR SELFCARE Is pt being admited?: No Does the pt Need Aspirin: No Condition: Stable Instructions: Chronic Back Pain (ED) Additional Instructions: Continue with pain medication that has been prescribed to you on your previous visit. Referrals: [facility] [Provider Group] - 3-5 Days PRIMARY CARE, [Primary Care Provider] - 3-5 Days <SOPHIE JEREZ - Last Filed: 08/31/17 11:21> ED Medical Decision Making - Medical Decision Making I was available for consultations at all times during the patient stay. I did not personally see and was not involved in the care of the patient. Dev Jerez MD
== END 2017-08-31 06:57 | disposition home or self-care (01) ==
LOC: ED 00:30
DX: M54.9 Dorsalgia, unspecified (principal); G89.29 Other chronic pain; F17.200 Nicotine dependence, unspecified, uncomplicated
CPT/HCPCS: 96372; 99282; J1885

== ENCOUNTER 2017-09-02 00:15 | Emergency (ER) | payer SELFPAY ==
[2017-09-02 03:38] LABS: Hematocrit 44.8 % (35.5-45.6); Hemoglobin 14.7 gm/dl (11.8-15.2); Mean Corpuscular HGB Conc 33 % (32-34); Mean Corpuscular Hemoglobin 29 pg (28-32); Mean Corpuscular Volume 89 fl (84-94); Platelet Count 132 K/mm3 (140-440); Red Blood Count 5.03 M/mm3 (3.65-5.03); Red Cell Distribution Width 14.6 % (13.2-15.2)
[2017-09-02 03:50] LABS: INR 0.83 (0.87-1.13)
[2017-09-02 03:51] LABS: Partial Thromboplastin Time 25.8 Sec. (24.2-36.6)
[2017-09-02 04:18] LABS: BUN/Creatinine Ratio 14; Blood Urea Nitrogen 11 mg/dL (9-20); Calcium 8.6 mg/dL (8.4-10.2); Hemolysis Index 14
[2017-09-02 04:26] LABS: Total Cells Counted 100
[2017-09-02 04:27] LABS: Platelet Estimate Consistent w Auto; Target Cells Few
[2017-09-02 05:41] VITALS: BP 144/87
== END 2017-09-02 04:00 | disposition left against medical advice (07) ==
LOC: ED 00:15
DX: R07.9 Chest pain, unspecified (principal); F10.20 Alcohol dependence, uncomplicated; Z53.21 Procedure and treatment not carried out due to patient leaving prior to being seen by health care provider
CPT/HCPCS: 36415; 80048; 84484; 85007; 85025; 85610; 85730; 93005; 93010; G0480; 80320

== ENCOUNTER 2017-09-03 00:43 | Emergency (ER) | payer SELFPAY ==
[2017-09-03] MEDS ORDERED: ASPIRIN PO ONE (02:15)
[2017-09-03 02:58] LABS: Hematocrit 44.6 % (35.5-45.6); Hemoglobin 15.1 gm/dl (11.8-15.2); Mean Corpuscular HGB Conc 34 % (32-34); Mean Corpuscular Hemoglobin 30 pg (28-32); Mean Corpuscular Volume 88 fl (84-94); Platelet Count 136 K/mm3 (140-440); Red Blood Count 5.06 M/mm3 (3.65-5.03); Red Cell Distribution Width 14.7 % (13.2-15.2)
[2017-09-03 03:20] LABS: Calcium 8.8 mg/dL (8.4-10.2); Hemolysis Index 7
[2017-09-03 04:22] LABS: BUN/Creatinine Ratio 11; Blood Urea Nitrogen 9 mg/dL (9-20)
[2017-09-03 05:20] LABS: Basophils % (Manual) 0 % (0.0-1.8); Target Cells Few; Total Cells Counted 100
[2017-09-03 05:21] LABS: Platelet Estimate Consistent w Auto
--- NOTE | 2017-09-03 11:14 | XRay Report ---
AP CHEST: HISTORY: chest pain AP view of the chest demonstrates a normal mediastinal and cardiac contour with clear lungs and normal bony and soft tissue structures. IMPRESSION: Unremarkable AP chest. No significant change since 08/25/17.
--- NOTE | 2017-09-03 12:24 | Emergency Department Report ---
ED Chest Pain HPI - General Chief Complaint: Chest Pain Stated Complaint: CP Time Seen by Provider: 09/03/17 10:29 Source: patient Mode of arrival: Ambulatory Limitations: No Limitations - History of Present Illness Initial Comments: Patient is a 56-year-old male with a past medical history of alcohol abuse who is coming in with chest pain. Patient states that for the past day he 's had some chest discomfort mostly when he is climbing stairs states he feels a small amount of tightness in the chest with some shortness of breath. Pat states the pain gets better after he sits still within about a minute. Patient denies any diaphoresis cough, congestion fevers or chills. Patient was just here in the hospital for same complaint. Patient had a stress test done August 28 which was negative. Severity scale (0 -10): 8 - Related Data Previous Rx's Medication Instructions Recorded Last Taken Type Cyclobenzaprine [Flexeril 10 MG 10 mg PO TID PRN #10 tablet 08/25/17 Unknown Rx TAB] Naproxen 500 mg PO BID PRN #60 tablet 08/25/17 Unknown Rx Pantoprazole [Protonix TAB] 20 mg PO QDAY #30 tablet. 09/03/17 Unknown Rx traMADol [Ultram 50 MG tab] 50 mg PO Q6HR PRN #10 tablet 09/03/17 Unknown Rx Allergies Allergy/AdvReac Type Severity Reaction Status Date / Time No Known Allergies Allergy Verified 08/27/17 08:02 Heart Score - HEART Score History: Moderately suspicious EKG: Normal Age: 45-65 Risk factors: No known risk factors Troponin: < normal limit HEART Score: 2 ED Review of Systems ROS: Stated complaint: CP Other details as noted in HPI Comment: All other systems reviewed and negative ED Past Medical Hx - Past Medical History Previous Medical History?: Yes Additional medical history: chronic pain in back, neck and L knee, ETOH abuse. herniated disc - Surgical History Past Surgical History?: Yes Additional Surgical History: Left Knee. skin graft to right hand - Social History Smoking Status: Current Every Day Smoker Substance Use Type: Alcohol - Medications Home Medications: Home Medications Medication Instructions Recorded Confirmed Last Taken Type Cyclobenzaprine [Flexeril 10 MG 10 mg PO TID PRN #10 tablet 18 08/27/17 Unknown Rx TAB] Naproxen 500 mg PO BID PRN #60 tablet 08/25/17 08/27/17 Unknown Rx Pantoprazole [Protonix TAB] 20 mg PO QDAY #30 tablet. 09/03/17 Unknown Rx traMADol [Ultram 50 MG tab] 50 mg PO Q6HR PRN #10 tablet 09/03/17 Unknown Rx ED Physical Exam - General Limitations: No Limitations General appearance: alert, in no apparent distress - Head Head exam: Present: atraumatic, normocephalic - Eye Eye exam: Present: normal appearance - ENT ENT exam: Present: mucous membranes moist - Neck Neck exam: Present: normal inspection - Respiratory Respiratory exam: Present: normal lung sounds bilaterally. Absent: respiratory distress, wheezes, rales, rhonchi - Cardiovascular Cardiovascular Exam: Present: regular rate, normal rhythm. Absent: systolic murmur, diastolic murmur, rubs, gallop - GI/Abdominal GI/Abdominal exam: Present: soft, normal bowel sounds. Absent: distended, tenderness, guarding, rebound - Rectal Rectal exam: Present: deferred - Extremities Exam Extremities exam: Present: normal inspection - Back Exam Back exam: Present: normal inspection - Neurological Exam Neurological exam: Present: alert, oriented X3 - Psychiatric Psychiatric exam: Present: normal affect, normal mood - Skin Skin exam: Present: warm, dry, intact, normal color. Absent: rash ED Course Vital Signs 09/03/17 09/03/17 09/03/17 00:51 02:11 09:43 Temperature 98.5 F 98.5 F Pulse Rate 104 H 104 H 82 Respiratory 18 15 Rate Blood Pressure 107/76 107/76 O2 Sat by Pulse 94 94 Oximetry 09/03/17 09/03/17 09/03/17 09:46 10:00 10:09 Temperature 98.3 F Pulse Rate 90 68 87 Respiratory 17 14 15 Rate Blood Pressure 137/94 133/85 O2 Sat by Pulse 98 97 97 Oximetry 09/03/17 09/03/17 09/03/17 10:16 10:30 10:46 Temperature Pulse Rate 62 65 84 Respiratory 15 15 15 Rate Blood Pressure 133/85 133/85 133/85 O2 Sat by Pulse 96 97 96 Oximetry 09/03/17 11:00 Temperature Pulse Rate 69 Respiratory 16 Rate Blood Pressure 144/86 O2 Sat by Pulse 96 Oximetry MERT score - Mert Score Age > 65: (0) No Aspirin use within the Past 7 Days: (0) No 3 or more CAD Risk Factors: (0) No 2 or more Angina events in past 24 hrs: (0) No Known CAD with more than 50% Stenosis: (0) No Elevated Cardiac Markers: (0) No ST Deviation Greater than 0.5mm: (0) No MERT Score: 0 ED Medical Decision Making - Lab Data Result diagrams: 09/03/17 02:34 09/03/17 02:34 Lab Results 09/03/17 09/03/17 09/03/17 Range/Units 02:34 02:34 05:13 WBC 5.3 (4.5-11.0) K/mm3 RBC 5.06 H (3.65-5.03) M/mm3 Hgb 15.1 (11.8-15.2) gm/dl Hct 44.6 (35.5-45.6) % MCV 88 (84-94) fl MCH 30 (28-32) pg MCHC 34 (32-34) % RDW 14.7 (13.2-15.2) % Plt Count 136 L (140-440) K/mm3 Lymph % (Auto) Carpenters Helper Add Manual Diff Complete Total Counted 100 Seg Neutrophils % Carpenters Helper Seg Neuts % (Manual) 31.0 L (40.0-70.0) % Band Neutrophils % 0 % Lymphocytes % (Manual) 58.0 H (13.4-35.0) % Reactive Lymphs % (Man) 0 % Monocytes % (Manual) 6.0 (0.0-7.3) % Eosinophils % (Manual) 5.0 H (0.0-4.3) % Basophils % (Manual) 0 (0.0-1.8) % Metamyelocytes % 0 % Myelocytes % 0 % Promyelocytes % 0 % Blast Cells % 0 % Nucleated RBC % Not Reportable Seg Neutrophils # Man 1.6 L (1.8-7.7) K/mm3 Band Neutrophils # 0.0 K/mm3 Lymphocytes # (Manual) 3.1 (1.2-5.4) K/mm3 Abs React Lymphs (Man) 0.0 K/mm3 Monocytes # (Manual) 0.3 (0.0-0.8) K/mm3 Eosinophils # (Manual) 0.3 (0.0-0.4) K/mm3 Basophils # (Manual) 0.0 (0.0-0.1) K/mm3 Metamyelocytes # 0.0 K/mm3 Myelocytes # 0.0 K/mm3 Promyelocytes # 0.0 K/mm3 Blast Cells # 0.0 K/mm3 WBC Morphology Not Reportable Hypersegmented Neuts Not Reportable Hyposegmented Neuts Not Reportable Hypogranular Neuts Not Reportable Smudge Cells Not Reportable Toxic Granulation Not Reportable Toxic Vacuolation Not Reportable Dohle Bodies Not Reportable Pelger-Huet Anomaly Not Reportable Katie Rods Not Reportable Platelet Estimate Consistent w auto Clumped Platelets Not Reportable Plt Clumps, EDTA Not Reportable Large Platelets Not Reportable Giant Platelets Not Reportable Platelet Satelliting Not Reportable Plt Morphology Comment Not Reportable RBC Morphology Not Reportable Dimorphic RBCs Not Reportable Polychromasia Not Reportable Hypochromasia Not Reportable Poikilocytosis Not Reportable Anisocytosis Not Reportable Microcytosis Not Reportable Macrocytosis Not Reportable Spherocytes Not Reportable Pappenheimer Bodies Not Reportable Sickle Cells Not Reportable Target Cells Few Tear Drop Cells Not Reportable Ovalocytes Not Reportable Helmet Cells Not Reportable [place] Bodies Not Reportable [place] Rings Not Reportable [place] Cells Not Reportable Bite Cells Not Reportable Crenated Cell Not Reportable Elliptocytes Not Reportable Acanthocytes (Spur) Not Reportable Rouleaux Not Reportable Hemoglobin C Crystals Not Reportable Schistocytes Not Reportable Malaria parasites Not Reportable Connor Bodies Not Reportable Hem Pathologist Commnt No Sodium 143 (137-145) mmol/L Potassium 4.2 (3.6-5.0) mmol/L Chloride 101.9 (98-107) mmol/L Carbon Dioxide 27 (22-30) mmol/L Anion Gap 18 mmol/L BUN 9 (9-20) mg/dL Creatinine 0.8 (0.8-1.5) mg/dL Estimated GFR > 60 ml/min BUN/Creatinine Ratio 11 % Glucose 86 (75-100) mg/dL Calcium 8.8 (8.4-10.2) mg/dL Troponin T < 0.010 < 0.010 (0.00-0.029) ng/mL 09/03/17 Range/Units 08:08 WBC (4.5-11.0) K/mm3 RBC (3.65-5.03) M/mm3 Hgb (11.8-15.2) gm/dl Hct (35.5-45.6) % MCV (84-94) fl MCH (28-32) pg MCHC (32-34) % RDW (13.2-15.2) % Plt Count (140-440) K/mm3 Lymph % (Auto) Add Manual Diff Total Counted Seg Neutrophils % Seg Neuts % (Manual) (40.0-70.0) % Band Neutrophils % % Lymphocytes % (Manual) (13.4-35.0) % Reactive Lymphs % (Man) % Monocytes % (Manual) (0.0-7.3) % Eosinophils % (Manual) (0.0-4.3) % Basophils % (Manual) (0.0-1.8) % Metamyelocytes % % Myelocytes % % Promyelocytes % % Blast Cells % % Nucleated RBC % Seg Neutrophils # Man (1.8-7.7) K/mm3 Band Neutrophils # K/mm3 Lymphocytes # (Manual) (1.2-5.4) K/mm3 Abs React Lymphs (Man) K/mm3 Monocytes # (Manual) (0.0-0.8) K/mm3 Eosinophils # (Manual) (0.0-0.4) K/mm3 Basophils # (Manual) (0.0-0.1) K/mm3 Metamyelocytes # K/mm3 Myelocytes # K/mm3 Promyelocytes # K/mm3 Blast Cells # K/mm3 WBC Morphology Hypersegmented Neuts Hyposegmented Neuts Hypogranular Neuts Smudge Cells Toxic Granulation Toxic Vacuolation Dohle Bodies Pelger-Huet Anomaly Katie Rods Platelet Estimate Clumped Platelets Plt Clumps, EDTA Large Platelets Giant Platelets Platelet Satelliting Plt Morphology Comment RBC Morphology Dimorphic RBCs Polychromasia Hypochromasia Poikilocytosis Anisocytosis Microcytosis Macrocytosis Spherocytes Pappenheimer Bodies Sickle Cells Target Cells Tear Drop Cells Ovalocytes Helmet Cells [place] Bodies [place] Rings [place] Cells Bite Cells Crenated Cell Elliptocytes Acanthocytes (Spur) Rouleaux Hemoglobin C Crystals Schistocytes Malaria parasites Connor Bodies Hem Pathologist Commnt Sodium (137-145) mmol/L Potassium (3.6-5.0) mmol/L Chloride (98-107) mmol/L Carbon Dioxide (22-30) mmol/L Anion Gap mmol/L BUN (9-20) mg/dL Creatinine (0.8-1.5) mg/dL Estimated GFR ml/min BUN/Creatinine Ratio % Glucose (75-100) mg/dL Calcium (8.4-10.2) mg/dL Troponin T < 0.010 (0.00-0.029) ng/mL - EKG Data -: EKG Interpreted by Me - EKG Data 09/03/17 12:22 EKG shows sinus tachycardia 107 normal axis normal intervals and no ST segment elevations or depressions patient does have Q waves in V1 and V2 time interpretation is 0055 09/03/17 12:22 - Radiology Data Chest x-ray is within normal limits - Medical Decision Making Patient is a 56-year-old black male past history alcohol abuse. Patient's had a negative stress test 2 weeks ago and also had 3 negative troponins here in the emergency department. Patient has no pleuritic component to his pain he states it comes and goes. Patient could be having GERD symptoms secondary to alcoholic gastritis which is most likely given the fact the patient has been ruled out for acute coronary syndrome with negative stress and negative troponins today. Patient be referred to a primary care physician for further management patient will be started on omeprazole. Critical care attestation.: If time is entered above; I have spent that time in minutes in the direct care of this critically ill patient, excluding procedure time. ED Disposition Clinical Impression: Atypical chest pain Disposition: DC-01 TO HOME OR SELFCARE Is pt being admited?: No Does the pt Need Aspirin: No Condition: Stable Instructions: Chest Pain (ED) Prescriptions: Pantoprazole [Protonix TAB] 20 mg PO QDAY #30 tablet. traMADol [Ultram 50 MG tab] 50 mg PO Q6HR PRN #10 tablet PRN Reason: Pain Referrals: PRIMARY CARE, [Primary Care Provider] - 3-5 Days
[2017-09-03 12:49] VITALS: BP 144/93
== END 2017-09-03 12:56 | disposition home or self-care (01) ==
LOC: ED 00:43
DX: R07.89 Other chest pain (principal); R06.02 Shortness of breath; G89.29 Other chronic pain; F17.200 Nicotine dependence, unspecified, uncomplicated; F10.10 Alcohol abuse, uncomplicated
CPT/HCPCS: 36415; 71045; 80048; 84484; 85007; 85025; 93005; 93010

== ENCOUNTER 2017-09-05 22:15 | Emergency (ER) | payer SELFPAY ==
[2017-09-06] MEDS ORDERED: MOTRIN PO ONE (08:30)
[2017-09-06 08:43] VITALS: BP 142/85
--- NOTE | 2017-09-06 09:55 | Emergency Department Report ---
ED Extremity Problem HPI - General Chief complaint: Extremity Problem,Nontraumatic Stated complaint: LT LEG PAIN Time Seen by Provider: 09/06/17 08:04 Source: patient Mode of arrival: Ambulatory Limitations: No Limitations - History of Present Illness Initial comments: 56-year-old male with past medical history chronic alcohol use, lower back pain , sciatica, degenerative disc disease presents with complaint of several days of left lower extremity pain with some associated swelling. Patient is awake alert and oriented 3, ambulatory, not in acute distress. Denies chest pain palpitations or pleuritic chest pain. Denies any personal history of PE or DVT. States he has noticed gradual swelling of his left leg over the last week. Patient states he has had surgery on his left knee in the past and does experience chronic knee pain. Denies any other new symptoms. Denies any fevers or chills. Denies any recent trauma or recent falls. Ambulating without assistance. MD Complaint: extremity pain, extremity swelling Location: left, lower extremity Severity scale (0 -10): 3 Quality: aching Consistency: intermittent Worsens with: exertion Associated Symptoms: denies other symptoms - Related Data Previous Rx's Medication Instructions Recorded Last Taken Type Cyclobenzaprine [Flexeril 10 MG 10 mg PO TID PRN #10 tablet 08/25/17 Unknown Rx TAB] Naproxen 500 mg PO BID PRN #60 tablet 08/25/17 Unknown Rx Pantoprazole [Protonix TAB] 20 mg PO QDAY #30 tablet. 09/03/17 Unknown Rx traMADol [Ultram 50 MG tab] 50 mg PO Q6HR PRN #10 tablet 09/03/17 Unknown Rx Allergies Allergy/AdvReac Type Severity Reaction Status Date / Time No Known Allergies Allergy Verified 08/27/17 08:02 ED Review of Systems ROS: Stated complaint: LT LEG PAIN Other details as noted in HPI Constitutional: denies: chills, fever Eyes: denies: eye pain, eye discharge, vision change ENT: denies: ear pain, throat pain Respiratory: denies: cough, shortness of breath, wheezing Cardiovascular: denies: chest pain, palpitations Endocrine: no symptoms reported Gastrointestinal: denies: abdominal pain, nausea, diarrhea Genitourinary: denies: urgency, dysuria Musculoskeletal: as per HPI, arthralgia (chronic left leg). denies: back pain, joint swelling Skin: denies: rash, lesions Neurological: denies: headache, weakness, paresthesias Psychiatric: denies: anxiety, depression Hematological/Lymphatic: denies: easy bleeding, easy bruising ED Past Medical Hx - Past Medical History Previous Medical History?: Yes Additional medical history: chronic pain in back, neck and L knee, ETOH abuse. herniated disc - Surgical History Past Surgical History?: Yes Additional Surgical History: Left Knee. skin graft to right hand - Social History Smoking Status: Current Every Day Smoker Substance Use Type: Alcohol - Medications Home Medications: Home Medications Medication Instructions Recorded Confirmed Last Taken Type Cyclobenzaprine [Flexeril 10 MG 10 mg PO TID PRN #10 tablet 08/25/17 08/27/17 Unknown Rx TAB] Naproxen 500 mg PO BID PRN #60 tablet 08/25/17 08/27/17 Unknown Rx Pantoprazole [Protonix TAB] 20 mg PO QDAY #30 tablet. 09/03/17 Unknown Rx traMADol [Ultram 50 MG tab] 50 mg PO Q6HR PRN #10 tablet 09/03/17 Unknown Rx ED Physical Exam - General Limitations: No Limitations General appearance: alert, in no apparent distress - Head Head exam: Present: atraumatic, normocephalic - Eye Eye exam: Present: normal appearance - ENT ENT exam: Present: mucous membranes moist - Neck Neck exam: Present: normal inspection - Respiratory Respiratory exam: Present: normal lung sounds bilaterally. Absent: respiratory distress - Cardiovascular Cardiovascular Exam: Present: regular rate, normal rhythm. Absent: systolic murmur, diastolic murmur, rubs, gallop - GI/Abdominal GI/Abdominal exam: Present: soft, normal bowel sounds - Rectal Rectal exam: Present: deferred - Extremities Exam Extremities exam: Present: normal inspection - Expanded Lower Extremity Exam Left Upper Leg exam: Present: normal inspection, full ROM Knee exam: Present: normal inspection (old surgical scar near left knee. Flexion and extension clinically intact. No cellulitis or signs of infection on exam), full ROM, full knee extension Lower Leg exam: Present: normal inspection, full ROM Ankle exam: Present: normal inspection, full ROM Foot/Toe exam: Present: normal inspection, full ROM Neuro vascular tendon exam: Present: no vascular compromise (distal capillary refill pedis and posterior tibial pulses strong to palpation) Gait: Positive: observed and normal - Back Exam Back exam: Present: normal inspection - Neurological Exam Neurological exam: Present: alert, oriented X3, CN II-XII intact, normal gait - Psychiatric Psychiatric exam: Present: normal affect, normal mood - Skin Skin exam: Present: warm, dry, intact, normal color. Absent: rash ED Course Vital Signs 09/05/17 09/06/17 22:36 08:42 Temperature 98.7 F 98.8 F Pulse Rate 127 H 90 Respiratory 18 18 Rate Blood Pressure 132/86 Blood Pressure 142/85 [Left] O2 Sat by Pulse 95 100 Oximetry Critical care attestation.: If time is entered above; I have spent that time in minutes in the direct care of this critically ill patient, excluding procedure time. ED Disposition Clinical Impression: Chronic pain of left lower extremity Disposition: - TO HOME OR SELFCARE Is pt being admited?: No Does the pt Need Aspirin: No Condition: Stable Instructions: Sciatica (ED), Arthralgia (ED) Referrals: [facility] [Provider Group] - 3-5 Days EKATERINA DEWEY MD [Referring] - 3-5 Days Time of Disposition: 10:51
== END 2017-09-06 11:01 | disposition home or self-care (01) ==
LOC: ED 22:15
DX: G89.29 Other chronic pain (principal); M79.662 Pain in left lower leg; F17.200 Nicotine dependence, unspecified, uncomplicated; F10.10 Alcohol abuse, uncomplicated
CPT/HCPCS: 99282

== ENCOUNTER 2017-09-07 21:17 | Emergency (ER) | payer SELFPAY ==
[2017-09-07 22:24] LABS: Hematocrit 43.3 % (35.5-45.6); Hemoglobin 14.3 gm/dl (11.8-15.2); Mean Corpuscular HGB Conc 33 % (32-34); Mean Corpuscular Hemoglobin 29 pg (28-32); Mean Corpuscular Volume 89 fl (84-94); Platelet Count 132 K/mm3 (140-440); Red Blood Count 4.89 M/mm3 (3.65-5.03); Red Cell Distribution Width 14.3 % (13.2-15.2)
[2017-09-07 22:36] LABS: BUN/Creatinine Ratio 11; Blood Urea Nitrogen 9 mg/dL (9-20); Calcium 8.6 mg/dL (8.4-10.2); Hemolysis Index 12
[2017-09-08 01:50] VITALS: BP 116/74
[2017-09-08] MEDS ORDERED: TYLENOL #3 PO ONE (03:59)
--- NOTE | 2017-09-08 04:33 | XRay Report ---
FINAL REPORT EXAM: XR KNEE 1-2V LT HISTORY: Lft knee pain, chronic, no injury TECHNIQUE: AP and lateral views of the left knee were submitted. There are no previous studies available for comparison. FINDINGS: There is osteoporosis. There is spurring along the medial margin of the medial femoral condyle along with additional marginal spurring along the medial joint space. There is hardware within the medial femoral condyle and medial tibial metaphysis. There is chondrocalcinosis. There is no evidence of fracture or joint effusion. The soft tissues otherwise are unremarkable. IMPRESSION: Osteoporosis. Degenerative spurring as described with hardware in place. No acute injury or joint effusion.
--- NOTE | 2017-09-08 05:23 | Emergency Department Report ---
ED Extremity Problem HPI - General Chief complaint: Extremity Injury, Lower Stated complaint: KNEE PAIN Time Seen by Provider: 09/08/17 02:58 Source: patient Mode of arrival: Ambulatory Limitations: No Limitations - History of Present Illness Initial comments: 56-year-old man presents with chronic pain and right knee, for which he was seen here 2 days ago, but did not report of venous Doppler ultrasound, with concern about blood clot, but primarily he reports he is still having pain, and is not any better. Review of patient's chart shows that he has multiple musculoskeletal complaints, and history of prior fractures with surgical fixation, as well as long-standing history of alcohol abuse, with frequent falls. Patient has not fallen recently, but reports simply that he has persistent chronic pain localized to the right knee, which makes it difficult to walk, and makes him feel like he is going to fall. He has no focal weakness , has not struck his head or hurt his neck, and denies any other acute symptoms. He does complain of pain, request medication for such, but also has history of alcohol abuse, although he has no distinct odor of alcohol on his breath tonight. He is unaccompanied, but reports he came by bus. Onset/Timin -: Gradual, week(s) Location: right, lower extremity, knee History of Same: Yes -: Yes arthralgia Radiation: none Severity scale (0 -10): 4 Quality: aching Consistency: constant Improves with: nothing Worsens with: walking Associated Symptoms: denies other symptoms - Related Data Previous Rx's Medication Instructions Recorded Last Taken Type Cyclobenzaprine [Flexeril 10 MG 10 mg PO TID PRN #10 tablet 08/25/17 Unknown Rx TAB] Naproxen 500 mg PO BID PRN #60 tablet 08/25/17 Unknown Rx Pantoprazole [Protonix TAB] 20 mg PO QDAY #30 tablet. 09/03/17 Unknown Rx traMADol [Ultram 50 MG tab] 50 mg PO Q6HR PRN #10 tablet 09/03/17 Unknown Rx traMADol [Ultram 50 MG tab] 50 mg PO Q6HR PRN #20 tablet 09/08/17 Unknown Rx Allergies Allergy/AdvReac Type Severity Reaction Status Date / Time No Known Allergies Allergy Verified 08/27/17 08:02 ED Review of Systems ROS: Stated complaint: KNEE PAIN Other details as noted in HPI Comment: All other systems reviewed and negative Constitutional: denies: chills, fever ENT: denies: ear pain, throat pain Respiratory: denies: cough, shortness of breath, wheezing Cardiovascular: denies: chest pain, palpitations Endocrine: no symptoms reported Gastrointestinal: denies: abdominal pain, nausea, diarrhea Genitourinary: denies: urgency, dysuria Musculoskeletal: as per HPI, arthralgia (right knee) Skin: denies: rash, lesions Neurological: denies: headache, weakness, paresthesias Psychiatric: denies: anxiety, depression ED Past Medical Hx - Past Medical History Additional medical history: chronic pain in back, neck and L knee, ETOH abuse. herniated disc - Surgical History Additional Surgical History: Left Knee. skin graft to right hand - Social History Smoking Status: Never Smoker Substance Use Type: Alcohol - Medications Home Medications: Home Medications Medication Instructions Recorded Confirmed Last Taken Type Cyclobenzaprine [Flexeril 10 MG 10 mg PO TID PRN #10 tablet 08/25/17 08/27/17 Unknown Rx TAB] Naproxen 500 mg PO BID PRN #60 tablet 08/25/17 08/27/17 Unknown Rx Pantoprazole [Protonix TAB] 20 mg PO QDAY #30 tablet.dr 09/03/17 Unknown Rx traMADol [Ultram 50 MG tab] 50 mg PO Q6HR PRN #10 tablet 09/03/17 Unknown Rx traMADol [Ultram 50 MG tab] 50 mg PO Q6HR PRN #20 tablet 09/08/17 Unknown Rx ED Physical Exam - General Limitations: No Limitations General appearance: alert, in distress (mild distress from right leg) - Head Head exam: Present: atraumatic, normocephalic - Eye Eye exam: Present: PERRL, EOMI - ENT ENT exam: Present: mucous membranes moist - Neck Neck exam: Present: normal inspection. Absent: tenderness - Respiratory Respiratory exam: Present: normal lung sounds bilaterally. Absent: respiratory distress, wheezes, rales, rhonchi - Cardiovascular Cardiovascular Exam: Present: regular rate, normal heart sounds - GI/Abdominal GI/Abdominal exam: Present: soft, normal bowel sounds. Absent: tenderness, rebound - Rectal Rectal exam: Present: deferred - Extremities Exam Extremities exam: Present: tenderness (right knee, with moderate chronic enlargement, no acute deformity, no effusion), other (mild left anterior pretibial medial muscular tenderness). Absent: calf tenderness - Back Exam Back exam: Present: normal inspection, tenderness (mild lower back tenderness, chronic) - Psychiatric Psychiatric exam: Present: normal affect, normal mood ED Course Vital Signs 09/07/17 09/08/17 09/08/17 21:46 01:50 04:10 Temperature 36.9 C Pulse Rate 92 H 89 Respiratory 18 18 Rate Blood Pressure 113/82 116/74 [Right] ED Medical Decision Making - Lab Data Result diagrams: 09/07/17 22:11 09/07/17 22:11 - Radiology Data Radiology results: report reviewed (there is chronic degenerative changes in the right knee, but no acute fracture, surgical hardware identified in medial femoral condyle as well as tibia as well.) Doppler duplex venous scan from previous visit was reviewed, and initial report was negative for any signs of acute venous thromboembolism. - Medical Decision Making Patient has chronic degenerative joint disease and right knee, with evidence of prior femoral surgical repair as well as prior tibial surgical repair, but no acute knee fracture and no effusion. He is stable for discharge home, and given his history of alcohol abuse, I'm reluctant to give him anything stronger than tramadol, with recommendation for rest and referral to primary care physician for further care. - Differential Diagnosis right knee pain, fracture, dislocation Critical care attestation.: If time is entered above; I have spent that time in minutes in the direct care of this critically ill patient, excluding procedure time. ED Disposition Clinical Impression: Osteoarthritis of right knee Qualifiers: Osteoarthritis type: primary Qualified Code(s): M17.11 - Unilateral primary osteoarthritis, right knee Right knee pain Qualifiers: Chronicity: chronic Qualified Code(s): M25.561 - Pain in right knee; G89.29 - Other chronic pain Disposition: -01 TO HOME OR SELFCARE Is pt being admited?: No Does the pt Need Aspirin: No Condition: Stable Instructions: Arthralgia (ED) Additional Instructions: X-rays of the knee were negative for fracture, but she do have degenerative arthritis in your right knee. Ultrasound scan of the knee from the last visit was negative for signs of any blood clot. Most of your discomfort is likely from the degenerative arthritis, and this is primarily improved with rest, local heat, and taken analgesics. We are prescribing tramadol which she may take 4 times per day for pain. Rest and elevate the leg when it is bothering U the most. Have recheck by your family doctor, or follow with orthopedist, Dr. Dany Roland, in one or 2 weeks for repeat examination. Prescriptions: traMADol [Ultram 50 MG tab] 50 mg PO Q6HR PRN #20 tablet PRN Reason: Pain Referrals: PRIMARY CARE, [Primary Care Provider] - 3-5 Days DANY ROLAND MD [Staff Physician] - 3-5 Days Time of Disposition: 05:26
== END 2017-09-08 05:32 | disposition home or self-care (01) ==
LOC: ED 21:17
DX: M17.11 Unilateral primary osteoarthritis, right knee (principal); G89.29 Other chronic pain
CPT/HCPCS: 36415; 80048; 85027; 99284

== ENCOUNTER 2017-09-10 21:53 | Emergency (ER) | payer SELFPAY ==
[2017-09-10 22:36] VITALS: BP 115/76
--- NOTE | 2017-09-10 23:41 | XRay Report ---
FINAL REPORT PROCEDURE: XR SPINE LUMBOSACRAL 2-3V TECHNIQUE: Lumbar spine radiographs, frontal and lateral views. CPT 83559 HISTORY: Chronic lower back pain COMPARISON: 02/11/2017 FINDINGS: Alignment: Normal . Vertebral body heights/Disk spaces: Wedge compression deformities of L1, L3 and L5 are again noted without interval change. There is narrowing of intervertebral disc space at T12-L1.. Fracture(s): None . Bone mineralization: Marginal osteophyte formation is identified at all the lumbar levels.. IMPRESSION: Multiple wedge compression deformities are unchanged since the prior study. No acute abnormality. Degenerative disc disease at T12-L1.
--- NOTE | 2017-09-10 23:46 | Emergency Department Report ---
ED Back Pain/Injury HPI - General Chief Complaint: Back Pain/Injury Stated Complaint: BACK PAIN Time Seen by Provider: 09/10/17 23:31 Source: patient Limitations: No Limitations - History of Present Illness Initial Comments: This is a 56-year-old male nontoxic, well nourished in appearance, no acute signs of distress presents to the ED with c/o of acute on chronic lower back pain and left knee pain. Patient was seen here mutiple times for same complaint with normal xrays and doppler studies. Patient states has history of sciatica nerve pain which is similar symptoms as today. Patient states that pain radiates through to his left lower extremity. Patient denies any trauma. Denies any bladder or bowel instability. Patient denies any urinary symptoms. Denies any fever, chills, nausea, vomiting, headache, stiff neck, chest pain or shortness of breath. Patient denies any numbness or tingling. Denies any allergies. MD Complaint: back pain, other (left knee pain) -: year(s) Similar Symptoms Previously: Yes Radiation: left leg Severity: mild Severity scale (0 -10): 8 Quality: aching Consistency: intermittent Improves With: immobilization, supine, sitting upright Worsens With: movement, walking Associated Symptoms: denies other symptoms. denies: confusion, weakness, chest pain, numbness, difficulty walking, cough, difficulty urinating, diaphoresis, incontinence, fever/chills, constipation, headaches, abdominal pain, loss of appetite, malaise, nausea/vomiting, rash, seizure, shortness of breath, syncope - Related Data Previous Rx's Medication Instructions Recorded Last Taken Type Cyclobenzaprine [Flexeril 10 MG 10 mg PO TID PRN #10 tablet 08/25/17 Unknown Rx TAB] Naproxen 500 mg PO BID PRN #60 tablet 08/25/17 Unknown Rx Pantoprazole [Protonix TAB] 20 mg PO QDAY #30 tablet. 09/03/17 Unknown Rx traMADol [Ultram 50 MG tab] 50 mg PO Q6HR PRN #10 tablet 09/03/17 Unknown Rx traMADol [Ultram 50 MG tab] 50 mg PO Q6HR PRN #20 tablet 09/08/17 Unknown Rx Ibuprofen [Motrin] 600 mg PO Q8H PRN #30 tablet 09/10/17 Unknown Rx Allergies Allergy/AdvReac Type Severity Reaction Status Date / Time No Known Allergies Allergy Verified 08/27/17 08:02 ED Review of Systems ROS: Stated complaint: BACK PAIN Other details as noted in HPI Constitutional: denies: chills, fever Eyes: denies: eye pain, eye discharge, vision change ENT: denies: ear pain, throat pain Respiratory: denies: cough, shortness of breath, wheezing Cardiovascular: denies: chest pain, palpitations Endocrine: no symptoms reported Gastrointestinal: denies: abdominal pain, nausea, diarrhea Genitourinary: denies: urgency, dysuria Musculoskeletal: arthralgia. denies: back pain, joint swelling Skin: denies: rash, lesions Neurological: denies: headache, weakness, paresthesias Psychiatric: denies: anxiety, depression Hematological/Lymphatic: denies: easy bleeding, easy bruising ED Past Medical Hx - Past Medical History Additional medical history: chronic pain in back, neck and L knee, ETOH abuse. herniated disc - Surgical History Additional Surgical History: Left Knee. skin graft to right hand - Social History Smoking Status: Never Smoker Substance Use Type: None - Medications Home Medications: Home Medications Medication Instructions Recorded Confirmed Last Taken Type Cyclobenzaprine [Flexeril 10 MG 10 mg PO TID PRN #10 tablet 08/25/17 08/27/17 Unknown Rx TAB] Naproxen 500 mg PO BID PRN #60 tablet 08/25/17 08/27/17 Unknown Rx Pantoprazole [Protonix TAB] 20 mg PO QDAY #30 tablet.dr 09/03/17 Unknown Rx traMADol [Ultram 50 MG tab] 50 mg PO Q6HR PRN #10 tablet 09/03/17 Unknown Rx traMADol [Ultram 50 MG tab] 50 mg PO Q6HR PRN #20 tablet 09/08/17 Unknown Rx Ibuprofen [Motrin] 600 mg PO Q8H PRN #30 tablet 09/10/17 Unknown Rx ED Physical Exam - General Limitations: No Limitations General appearance: alert, in no apparent distress - Head Head exam: Present: atraumatic, normocephalic - Eye Eye exam: Present: normal appearance Pupils: Present: normal accommodation - ENT ENT exam: Present: normal exam, mucous membranes moist - Neck Neck exam: Present: normal inspection, full ROM. Absent: tenderness, meningismus, lymphadenopathy - Respiratory Respiratory exam: Present: normal lung sounds bilaterally. Absent: respiratory distress, wheezes, rales, rhonchi, stridor, chest wall tenderness, accessory muscle use, decreased breath sounds, prolonged expiratory - Cardiovascular Cardiovascular Exam: Present: regular rate, normal rhythm, normal heart sounds. Absent: systolic murmur, diastolic murmur, rubs, gallop - GI/Abdominal GI/Abdominal exam: Present: soft, normal bowel sounds. Absent: distended, tenderness, guarding, rebound, rigid, diminished bowel sounds - Rectal Rectal exam: Present: deferred - Extremities Exam Extremities exam: Present: normal inspection, full ROM, tenderness, normal capillary refill. Absent: joint swelling - Expanded Lower Extremity Exam Left Hip exam: Present: normal inspection, full ROM. Absent: tenderness, swelling Upper Leg exam: Present: normal inspection, full ROM. Absent: tenderness, swelling Knee exam: Present: normal inspection, full ROM, tenderness, full knee extension. Absent: swelling, abrasion, laceration, ecchymosis, deformity, crepidus, dislocation, erythema, effusion, pain w/ pronation/supination, posterior draw sign, pain/laxity with valgus, pain/laxity with varus Lower Leg exam: Present: normal inspection, full ROM. Absent: tenderness, swelling Ankle exam: Present: normal inspection, full ROM. Absent: tenderness, swelling Foot/Toe exam: Present: normal inspection, full ROM. Absent: tenderness, swelling Neuro vascular tendon exam: Present: no vascular compromise. Absent: pulse deficit, abnormal cap refill, motor deficit, sensory deficit, tendon deficit, extremity cold to touch, pallor, abnormal 2-point discrimination, decreased fine /light touch, foot drop, peroneal nerve deficit, significant pain with passive ROM of distal joint Gait: Positive: observed and normal - Back Exam Back exam: Present: normal inspection, full ROM, paraspinal tenderness ( paralumbar region). Absent: tenderness, CVA tenderness (R), CVA tenderness (L) , muscle spasm, vertebral tenderness, rash noted - Expanded Back Exam Expanded Back exam: Absent: saddle anesthesia Back exam: Negative Straight Leg Raising: Left, Right - Neurological Exam Neurological exam: Present: alert, oriented X3, normal gait - Psychiatric Psychiatric exam: Present: normal affect, normal mood - Skin Skin exam: Present: warm, dry, intact, normal color. Absent: rash ED Course Vital Signs 07/04/18 22:32 Temperature 99.1 F Pulse Rate 96 H Respiratory 18 Rate Blood Pressure 115/76 O2 Sat by Pulse 98 Oximetry - Reevaluation(s) Reevaluation #1: 09/10/17 23:44 Patient is speaking in full sentences with no signs of distress noted. ED Medical Decision Making - Medical Decision Making This is a 56-year-old male that presents with chronic back strain and knee pain. Patient is stable was examined by me. There is no spinal tenderness. There is no cauda equina syndrome during examination. No bladder or bowel instability. I referred patient to an orthopedic doctor for further evaluation for possible MRI. X-ray has been obtained and dictated by the radiologist. Patient is notified of the x-ray report with noted by the patient. Patient does have normal gait with no tenderness and no joint swelling. No ecchymosis. no joint redness or swelling. Not warm to touch. No signs of cellulites present. Patient is discharged with Motrin. Patient was referred to Follow- up with a primary care/orthopedic doctor in 3-5 days or if symptoms worsen and continue return to emergency room as soon as possible. At time of discharge, the patient does not seem toxic or ill in appearance. No acute signs of distress noted. Patient agrees to discharge treatment plan of care. No further questions noted by the patient. This chart is dictated with using [employer] Critical care attestation.: If time is entered above; I have spent that time in minutes in the direct care of this critically ill patient, excluding procedure time. ED Disposition Clinical Impression: Chronic back pain Qualifiers: Back pain location: low back pain Back pain laterality: left Sciatica presence : with sciatica Sciatica laterality: sciatica of left side Qualified Code(s): M54.42 - Lumbago with sciatica, left side; G89.29 - Other chronic pain Chronic knee pain Qualifiers: Laterality: left Qualified Code(s): M25.562 - Pain in left knee; G89.29 - Other chronic pain Disposition: -01 TO HOME OR SELFCARE Is pt being admited?: No Does the pt Need Aspirin: No Condition: Stable Instructions: Lumbar Radiculopathy (ED) Additional Instructions: Follow-up with a primary care/orthopedic doctor in 3-5 days or if symptoms worsen and continue return to emergency room as soon as possible. Prescriptions: Ibuprofen [Motrin] 600 mg PO Q8H PRN #30 tablet PRN Reason: Pain Referrals: PRIMARY CARE, [Primary Care Provider] - 3-5 Days MYRON CHAMBERS MD [Staff Physician] - 3-5 Days [facility] [Outside] - 3-5 Days
--- NOTE | 2017-09-10 23:47 | XRay Report ---
FINAL REPORT PROCEDURE: XR KNEE 3V LT TECHNIQUE: LEFT knee radiographs, AP, lateral and sunrise views. CPT 65320 HISTORY: Chronic left knee pain COMPARISON: 09/08/2017 FINDINGS: Fracture (s) and/or Dislocation(s): None . Alignment: Normal . Joint space(s): Normal . Soft tissues: Normal . Bone mineralization: Mild degree marginal osteophyte formation is noted. Enthesopathy is identified involving the medial femoral and tibial metaphyses. Medial femoral and tibial hardware again noted. Foreign bodies: None . IMPRESSION: No acute fracture. Mild degree osteoarthritis Enthesopathy.
== END 2017-09-11 00:07 | disposition home or self-care (01) ==
LOC: ED 21:53
DX: S39.012A Strain of muscle, fascia and tendon of lower back, initial encounter (principal); M54.42 Lumbago with sciatica, left side; M54.2 Cervicalgia; G89.29 Other chronic pain; F10.10 Alcohol abuse, uncomplicated; X58.XXXA Exposure to other specified factors, initial encounter; Y93.89 Activity, other specified; Y99.8 Other external cause status; Y92.89 Other specified places as the place of occurrence of the external cause
CPT/HCPCS: 72100; 99283

== ENCOUNTER 2017-09-14 23:09 | Emergency (ER) | payer SELFPAY ==
[2017-09-14 23:16] VITALS: BP 137/101
[2017-09-14] MEDS ORDERED: ASPIRIN PO ONE (23:46)
[2017-09-15 00:12] LABS: Basophils % (Auto) 0.5 % (0.0-1.8); Eosinophils # (Auto) 0.4 K/mm3 (0.0-0.4); Hematocrit 42.8 % (35.5-45.6); Hemoglobin 14.5 gm/dl (11.8-15.2); Mean Corpuscular HGB Conc 34 % (32-34); Mean Corpuscular Hemoglobin 30 pg (28-32); Mean Corpuscular Volume 88 fl (84-94); Monocytes # (Auto) 0.6 K/mm3 (0.0-0.8); Monocytes % (Auto) 9.9 % (0.0-7.3); Platelet Count 130 K/mm3 (140-440); Red Blood Count 4.85 M/mm3 (3.65-5.03)
[2017-09-15 00:33] LABS: BUN/Creatinine Ratio 11; Blood Urea Nitrogen 9 mg/dL (9-20); Calcium 8.5 mg/dL (8.4-10.2); Hemolysis Index 6
--- NOTE | 2017-09-15 04:07 | Emergency Department Report ---
ED Chest Pain HPI - General Chief Complaint: Chest Pain Stated Complaint: LEFT SHOULDER,CHEST PAIN Time Seen by Provider: 09/15/17 03:53 Source: patient Mode of arrival: Ambulatory Limitations: No Limitations - History of Present Illness Initial Comments: Mr. Lemus is a 56-year-old male with history of alcohol abuse and degenerative disc disease. He presents with 1 day of persistent central chest pain. Substernal. Pinching sensation. Mild in severity. He does not have a primary physician. He has chronic pain in back and knee and neck. MD Complaint: chest pain -: Gradual, days(s) (1) Onset: during rest Pain Location: substernal Severity: mild Quality: other ("like a pinch") Improves With: nothing Worsens With: nothing re: dyspnea. denies: nausea, vomting Other Symptoms: denies: cough, fever, syncope, rash, palpitations, burping Treatments Prior to Arrival: none - Related Data Previous Rx's Medication Instructions Recorded Last Taken Type Cyclobenzaprine [Flexeril 10 MG 10 mg PO TID PRN #10 tablet 08/25/17 Unknown Rx TAB] Naproxen 500 mg PO BID PRN #60 tablet 08/25/17 Unknown Rx Pantoprazole [Protonix TAB] 20 mg PO QDAY #30 tablet. 09/03/17 Unknown Rx traMADol [Ultram 50 MG tab] 50 mg PO Q6HR PRN #10 tablet 09/03/17 Unknown Rx traMADol [Ultram 50 MG tab] 50 mg PO Q6HR PRN #20 tablet 09/08/17 Unknown Rx Ibuprofen [Motrin] 600 mg PO Q8H PRN #30 tablet 09/10/17 Unknown Rx Allergies Allergy/AdvReac Type Severity Reaction Status Date / Time No Known Allergies Allergy Verified 08/27/17 08:02 Heart Score - HEART Score History: Slightly suspicious EKG: Normal Age: 45-65 Risk factors: No known risk factors Troponin: < normal limit HEART Score: 1 ED Review of Systems ROS: Stated complaint: LEFT SHOULDER,CHEST PAIN Other details as noted in HPI Comment: All other systems reviewed and negative Constitutional: denies: fever, malaise Respiratory: denies: cough Cardiovascular: chest pain ED Past Medical Hx - Past Medical History Additional medical history: chronic pain in back, neck and L knee, ETOH abuse. herniated disc - Surgical History Additional Surgical History: Left Knee. skin graft to right hand - Social History Smoking Status: Never Smoker Substance Use Type: Alcohol Other Social History: Lives with brother. Does [employer] work every once in a while - Medications Home Medications: Home Medications Medication Instructions Recorded Confirmed Last Taken Type Cyclobenzaprine [Flexeril 10 MG 10 mg PO TID PRN #10 tablet 08/25/17 08/27/17 Unknown Rx TAB] Naproxen 500 mg PO BID PRN #60 tablet 08/25/17 08/27/17 Unknown Rx Pantoprazole [Protonix TAB] 20 mg PO QDAY #30 tablet. 09/03/17 Unknown Rx traMADol [Ultram 50 MG tab] 50 mg PO Q6HR PRN #10 tablet 09/03/17 Unknown Rx traMADol [Ultram 50 MG tab] 50 mg PO Q6HR PRN #20 tablet 09/08/17 Unknown Rx Ibuprofen [Motrin] 600 mg PO Q8H PRN #30 tablet 09/10/17 Unknown Rx ED Physical Exam - General Limitations: No Limitations General appearance: alert, in no apparent distress - Head Head exam: Present: atraumatic, normocephalic - Eye Eye exam: Present: normal appearance. Absent: scleral icterus - ENT ENT exam: Present: mucous membranes moist - Neck Neck exam: Present: normal inspection. Absent: tenderness, meningismus - Respiratory Respiratory exam: Present: normal lung sounds bilaterally. Absent: respiratory distress, wheezes, rales, rhonchi - Cardiovascular Cardiovascular Exam: Present: regular rate, normal rhythm, normal heart sounds. Absent: bradycardia, tachycardia, systolic murmur, diastolic murmur, rubs, gallop - GI/Abdominal GI/Abdominal exam: Present: soft, normal bowel sounds. Absent: distended, tenderness, guarding, rebound - Rectal Rectal exam: Present: deferred - Extremities Exam Extremities exam: Present: normal inspection - Back Exam Back exam: Present: normal inspection - Neurological Exam Neurological exam: Present: alert, oriented X3 - Psychiatric Psychiatric exam: Present: normal affect, normal mood - Skin Skin exam: Present: warm, dry, intact, normal color. Absent: rash ED Course Vital Signs 09/14/17 09/14/17 23:08 23:42 Temperature 97.9 F Pulse Rate 110 H Respiratory 18 Rate Blood Pressure 137/101 O2 Sat by Pulse 93 97 Oximetry MERT score - Mert Score Age > 65: (0) No Aspirin use within the Past 7 Days: (0) No 3 or more CAD Risk Factors: (0) No 2 or more Angina events in past 24 hrs: (0) No Known CAD with more than 50% Stenosis: (0) No Elevated Cardiac Markers: (0) No ST Deviation Greater than 0.5mm: (0) No MERT Score: 0 ED Medical Decision Making - Lab Data Result diagrams: 09/14/17 23:52 09/14/17 23:52 Laboratory Results - last 24 hr 09/14/17 09/14/17 09/15/17 23:52 23:52 02:27 WBC 5.8 RBC 4.85 Hgb 14.5 Hct 42.8 MCV 88 MCH 30 MCHC 34 RDW 15.0 Plt Count 130 L Lymph % (Auto) 34.0 [place] % (Auto) 9.9 H Eos % (Auto) 7.0 H Baso % (Auto) 0.5 Lymph # 2.0 [place] # 0.6 Eos # 0.4 Baso # 0.0 Seg Neutrophils % 48.6 Seg Neutrophils # 2.8 Sodium 142 Potassium 3.9 Chloride 99.8 Carbon Dioxide 26 Anion Gap 20 BUN 9 Creatinine 0.8 Estimated GFR > 60 BUN/Creatinine Ratio 11 Glucose 86 Calcium 8.5 Troponin T < 0.010 < 0.010 Vital Signs - 24 hr 09/14/17 09/14/17 23:08 23:42 Temperature 97.9 F Pulse Rate 110 H Respiratory 18 Rate Blood Pressure 137/101 O2 Sat by Pulse 93 97 Oximetry - EKG Data Interpretation: no acute changes, unchanged when compared t 09/15/17 04:05 EKG sinus tachycardia rate of 100 bpm normal intervals no ST elevation or signs of ischemia normal axis EKG unchanged from 09/03/2017 - Medical Decision Making Mr. Lemus presents with chest pain. Atypical for ACS. Normal myocardial perfusion scan performed on 08/28/2017. Also had a recent CT angio of his chest which was normal. Differential diagnosis includes GERD/esophagitis/chest wall pain. Strongly recommended using the omeprazole which he was prescribed on 2 previous clinical encounters recently. Critical care attestation.: If time is entered above; I have spent that time in minutes in the direct care of this critically ill patient, excluding procedure time. ED Disposition Clinical Impression: Chest pain, Atypical chest pain Disposition: DC-01 TO HOME OR SELFCARE Is pt being admited?: No Does the pt Need Aspirin: No Condition: Stable Instructions: Chest Pain (ED) Referrals: [facility] [Outside] - 3-5 Days Time of Disposition: 04:08
== END 2017-09-15 04:18 | disposition home or self-care (01) ==
LOC: ED 23:09
DX: R07.89 Other chest pain (principal); G89.29 Other chronic pain
CPT/HCPCS: 36415; 80048; 84484; 85025; 93005; 93010; 99284

== ENCOUNTER 2017-10-12 02:38 | Emergency (ER) | payer SELFPAY ==
[2017-10-12 05:59] VITALS: BP 148/98
[2017-10-12] MEDS ORDERED: ASPIRIN PO ONE (07:00)
[2017-10-12 08:09] LABS: Basophils % (Auto) 0.6 % (0.0-1.8); Eosinophils # (Auto) 0.1 K/mm3 (0.0-0.4); Eosinophils % (Auto) 1.9 % (0.0-4.3); Hematocrit 45.7 % (35.5-45.6); Hemoglobin 14.9 gm/dl (11.8-15.2); Lymphocytes # (Auto) 2.5 K/mm3 (1.2-5.4); Lymphocytes % (Auto) 50.1 % (13.4-35.0); Mean Corpuscular HGB Conc 33 % (32-34); Mean Corpuscular Hemoglobin 29 pg (28-32); Mean Corpuscular Volume 90 fl (84-94); Monocytes # (Auto) 0.4 K/mm3 (0.0-0.8); Monocytes % (Auto) 7.9 % (0.0-7.3); Platelet Count 138 K/mm3 (140-440); Red Cell Distribution Width 15.2 % (13.2-15.2)
[2017-10-12 09:09] LABS: BUN/Creatinine Ratio 13; Blood Urea Nitrogen 9 mg/dL (9-20); Calcium 8.5 mg/dL (8.4-10.2); Hemolysis Index 83
--- NOTE | 2017-10-12 09:29 | Emergency Department Report ---
Chief Complaint: Chest Pain Stated Complaint: LOWER BACK PAIN Time Seen by Provider: 10/12/17 09:23 - HPI History of Present Illness: 56-year-old Afro-[place] male presents to the emergency department with 2 complaints. First he complains of some low back pain where he says he has a history of disc herniation. No problems with bowel or bladder, numbness or paresthesias or any neurological deficits. Secondly, the patient developed some midsternal chest pain without radiation that has been going on since yesterday. He has a history of previous alcohol abuse, and has some chronic back and neck pains. He has not taken anything for his symptoms prior to presentation. He does not have a primary care physician. - ROS Review of Systems: Positive for low back pain, chest pain Negative for fever, nausea, vomiting - Exam Vital Signs: Vital Signs 10/12/17 10/12/17 05:54 09:17 Temperature 98 F Pulse Rate 98 H Respiratory 18 17 Rate Blood Pressure 148/98 O2 Sat by Pulse 99 Oximetry Physical Exam: Patient is in no apparent acute distress. Heart and lungs sounds are normal to auscultation. He is awake and alert and appropriate. MSE screening note: Focused history and physical exam performed. Due to findings the following was ordered: Patient's EKG does not show any signs of ST elevation but does have a prolonged GA interval and some Q waves to the septal leads. It does not sound like he has ever had a stress test or full cardiac workup His labs thus far been unremarkable including negative troponin. He will have serial troponins, chest x-ray, and will be moved to the main emergency Department side for further evaluation of his chest pain. ED Medical Decision Making - Lab Data Result diagrams: 10/12/17 07:24 10/12/17 07:24 ED Disposition for MSE Condition: Stable Referrals: PRIMARY CARE [Primary Care Provider] - 3-5 Days
--- NOTE | 2017-10-12 12:01 | XRay Report ---
FINAL REPORT EXAM: XR CHEST ROUTINE 2V HISTORY: CP COMPARISON: None. TECHNIQUE: Frontal and lateral views of the chest. FINDINGS: The cardiomediastinal silhouette is normal in appearance. The lungs are clear without focal consolidation. There is no pleural effusion or pneumothorax. There is no acute soft tissue or osseous abnormality. IMPRESSION: No acute cardiopulmonary disease.
--- NOTE | 2017-10-12 13:05 | Emergency Department Report ---
ED Chest Pain HPI - General Chief Complaint: Chest Pain Stated Complaint: LOWER BACK PAIN Time Seen by Provider: 10/12/17 09:23 Source: patient Mode of arrival: Ambulatory Limitations: No Limitations - History of Present Illness MD Complaint: chest pain -: Gradual Onset: during rest Pain Location: substernal Pain Radiation: none Severity: mild Severity scale (0 -10): 3 Quality: aching Consistency: intermittent, now resolved Improves With: nothing Worsens With: nothing re: denies: nausea, vomting, dyspnea, sense of impending doom Other Symptoms: denies: cough, fever, syncope Treatments Prior to Arrival: none Aspirin use within the Past 7 Days: (0) No - Related Data On Oral Contraceptives: No Previous Rx's Medication Instructions Recorded Last Taken Type Cyclobenzaprine [Flexeril 10 MG 10 mg PO TID PRN #10 tablet 08/25/17 Unknown Rx TAB] Naproxen 500 mg PO BID PRN #60 tablet 08/25/17 Unknown Rx Pantoprazole [Protonix TAB] 20 mg PO QDAY #30 tablet. 09/03/17 Unknown Rx traMADol [Ultram 50 MG tab] 50 mg PO Q6HR PRN #10 tablet 09/03/17 Unknown Rx traMADol [Ultram 50 MG tab] 50 mg PO Q6HR PRN #20 tablet 09/08/17 Unknown Rx Ibuprofen [Motrin] 600 mg PO Q8H PRN #30 tablet 09/10/17 Unknown Rx Allergies Allergy/AdvReac Type Severity Reaction Status Date / Time No Known Allergies Allergy Verified 08/27/17 08:02 Heart Score - HEART Score History: Slightly suspicious EKG: Normal Age: 45-65 Risk factors: No known risk factors Troponin: < normal limit HEART Score: 1 ED Review of Systems ROS: Stated complaint: LOWER BACK PAIN Other details as noted in HPI Comment: All other systems reviewed and negative Constitutional: denies: chills, fever Eyes: denies: eye pain ENT: denies: ear pain Respiratory: denies: cough, shortness of breath Cardiovascular: chest pain. denies: palpitations, dyspnea on exertion, orthopnea, edema Endocrine: no symptoms reported Gastrointestinal: denies: abdominal pain, nausea, vomiting, diarrhea Genitourinary: denies: urgency, dysuria, frequency Musculoskeletal: back pain (Chronic Lower back pain) Skin: denies: rash, lesions Neurological: denies: headache, weakness, numbness Psychiatric: denies: anxiety, depression Hematological/Lymphatic: denies: easy bleeding, easy bruising ED Past Medical Hx - Past Medical History Additional medical history: chronic pain in back, neck and L knee, ETOH abuse. herniated disc - Surgical History Additional Surgical History: Left Knee. skin graft to right hand - Social History Smoking Status: Never Smoker Substance Use Type: Alcohol - Medications Home Medications: Home Medications Medication Instructions Recorded Confirmed Last Taken Type Cyclobenzaprine [Flexeril 10 MG 10 mg PO TID PRN #10 tablet 08/25/17 08/27/17 Unknown Rx TAB] Naproxen 500 mg PO BID PRN #60 tablet 08/25/17 08/27/17 Unknown Rx Pantoprazole [Protonix TAB] 20 mg PO QDAY #30 tablet.dr 09/03/17 Unknown Rx traMADol [Ultram 50 MG tab] 50 mg PO Q6HR PRN #10 tablet 09/03/17 Unknown Rx traMADol [Ultram 50 MG tab] 50 mg PO Q6HR PRN #20 tablet 09/08/17 Unknown Rx Ibuprofen [Motrin] 600 mg PO Q8H PRN #30 tablet 09/10/17 Unknown Rx ED Physical Exam - General Limitations: No Limitations General appearance: alert, in no apparent distress - Head Head exam: Present: atraumatic, normocephalic, normal inspection - Eye Eye exam: Present: normal appearance, PERRL, EOMI Pupils: Present: normal accommodation - ENT ENT exam: Present: normal exam, normal orophraynx, mucous membranes moist - Neck Neck exam: Present: normal inspection, full ROM. Absent: tenderness - Respiratory Respiratory exam: Present: normal lung sounds bilaterally. Absent: respiratory distress, wheezes, rales, rhonchi, stridor - Cardiovascular Cardiovascular Exam: Present: regular rate, normal rhythm, normal heart sounds - GI/Abdominal GI/Abdominal exam: Present: soft, normal bowel sounds. Absent: distended, tenderness, guarding, rebound, rigid - Extremities Exam Extremities exam: Present: normal inspection, full ROM, normal capillary refill - Back Exam Back exam: Present: normal inspection, full ROM. Absent: tenderness, CVA tenderness (R), CVA tenderness (L), vertebral tenderness - Neurological Exam Neurological exam: Present: alert, oriented X3, CN II-XII intact - Psychiatric Psychiatric exam: Present: normal affect, normal mood - Skin Skin exam: Present: warm, dry, intact, normal color. Absent: rash ED Course Vital Signs 10/12/17 10/12/17 05:54 09:17 Temperature 98 F Pulse Rate 98 H Respiratory 18 17 Rate Blood Pressure 148/98 O2 Sat by Pulse 99 Oximetry - Reevaluation(s) Reevaluation #1: 10/12/17 13:18 Patient refused further evaluation in the ER and he decided to sign out AGAINST MEDICAL ADVICE. He is alert and oriented x 4 and he has an medical decision-making capacity. I explained to him the risk he was taking by not allowing us to evaluate him in the emergency room, he verbalized understanding but he still insists on going home. MERT score - Mert Score Age > 65: (0) No Aspirin use within the Past 7 Days: (0) No 3 or more CAD Risk Factors: (0) No 2 or more Angina events in past 24 hrs: (0) No Known CAD with more than 50% Stenosis: (0) No Elevated Cardiac Markers: (0) No ST Deviation Greater than 0.5mm: (0) No MERT Score: 0 ED Medical Decision Making - Lab Data Result diagrams: 10/12/17 07:24 10/12/17 07:24 - EKG Data -: EKG Interpreted by Me EKG shows normal: sinus rhythm Rate: normal (94) - EKG Data When compared to previous EKG there are: previous EKG unavailable Interpretation: other (First degree AV block. No STEMI.) - Radiology Data Radiology results: report reviewed, image reviewed - Medical Decision Making Chest Pain. Chronic Lower Back Pain. Critical care attestation.: If time is entered above; I have spent that time in minutes in the direct care of this critically ill patient, excluding procedure time. ED Disposition Clinical Impression: Chest pain Qualifiers: Chest pain type: unspecified Qualified Code(s): R07.9 - Chest pain, unspecified Chronic lower back pain Qualifiers: Back pain laterality: unspecified Sciatica presence: without sciatica Qualified Code(s): M54.5 - Low back pain Disposition: LEFT AGAINST MED ADVICE Is pt being admited?: No Does the pt Need Aspirin: Yes Condition: Stable Instructions: Chest Pain (ED) Referrals: PRIMARY CARE, [Primary Care Provider] - 3-5 Days Time of Disposition: 12:45
== END 2017-10-12 12:27 | disposition left against medical advice (07) ==
LOC: ED 02:38
DX: R07.89 Other chest pain (principal); M54.5 Low back pain; G89.29 Other chronic pain
CPT/HCPCS: 36415; 71046; 80048; 84484; 85025; 93005; 93010

== ENCOUNTER 2017-10-12 23:52 | Emergency (ER) | payer SELFPAY ==
[2017-10-13] MEDS ORDERED: ASPIRIN PO ONE (00:58)
[2017-10-13 01:34] LABS: Hematocrit 44.6 % (35.5-45.6); Hemoglobin 14.5 gm/dl (11.8-15.2); Mean Corpuscular HGB Conc 33 % (32-34); Mean Corpuscular Hemoglobin 29 pg (28-32); Mean Corpuscular Volume 90 fl (84-94); Platelet Count 139 K/mm3 (140-440); Red Blood Count 4.98 M/mm3 (3.65-5.03); Red Cell Distribution Width 15.1 % (13.2-15.2)
[2017-10-13 01:42] LABS: BUN/Creatinine Ratio 10; Blood Urea Nitrogen 8 mg/dL (9-20); Calcium 8.7 mg/dL (8.4-10.2); Hemolysis Index 11
[2017-10-13 02:22] LABS: Basophils % (Manual) 0 % (0.0-1.8); Hypochromasia 1+; Platelet Estimate Consistent w Auto; Target Cells 1+; Total Cells Counted 100
--- NOTE | 2017-10-13 03:18 | Emergency Department Report ---
HPI - General Chief Complaint: Chest Pain Time Seen by Provider: 10/13/17 01:45 - HPI HPI: 56 presents to the ED with chest pain chest pain, onset 1 hour prior to evaluation while at rest, Location: mid chest Radiation: none, Severity now (0-10): 2, Severity at worst (0-10): 8 Duration: 5 minutes characterized as: sharp. The pain is relieved with aspirin, Patient denies exertional pain, patient denies pleuritic pain. Patient denies associated symptoms, such as nausea/vomiting, no diaphoresis, no shortness of breath. ED Past Medical Hx - Past Medical History Additional medical history: chronic pain in back, neck and L knee, ETOH abuse. herniated disc - Surgical History Additional Surgical History: Left Knee. skin graft to right hand - Social History Smoking Status: Never Smoker Substance Use Type: None - Medications Home Medications: Home Medications Medication Instructions Recorded Confirmed Last Taken Type Cyclobenzaprine [Flexeril 10 MG 10 mg PO TID PRN #10 tablet 08/25/17 08/27/17 Unknown Rx TAB] Naproxen 500 mg PO BID PRN #60 tablet 08/25/17 08/27/17 Unknown Rx Pantoprazole [Protonix TAB] 20 mg PO QDAY #30 tablet.dr 09/03/17 Unknown Rx traMADol [Ultram 50 MG tab] 50 mg PO Q6HR PRN #10 tablet 09/03/17 Unknown Rx traMADol [Ultram 50 MG tab] 50 mg PO Q6HR PRN #20 tablet 09/08/17 Unknown Rx Ibuprofen [Motrin] 600 mg PO Q8H PRN #30 tablet 09/10/17 Unknown Rx ED Review of Systems ROS: Stated complaint: CHEST/BACK PAIN Other details as noted in HPI Comment: All other systems reviewed and negative ENT: denies: ear pain Respiratory: denies: cough Cardiovascular: chest pain Physical Exam - Physical Exam Vital Signs: Vital Signs 10/13/17 10/13/17 10/13/17 00:17 00:53 01:49 Temperature 97.5 F L Pulse Rate 112 H Respiratory 18 20 Rate Blood Pressure 121/86 Blood Pressure [Left] O2 Sat by Pulse 96 99 98 Oximetry 10/13/17 02:12 Temperature 97.7 F Pulse Rate 105 H Respiratory 20 Rate Blood Pressure Blood Pressure 122/85 [Left] O2 Sat by Pulse 98 Oximetry Physical Exam: Vital signs reviewed. GENERAL: Alert, well developed, in no acute distress. MENTAL STATUS: Judgment and insight appropriate for age. Oriented to time, place and person. No recent loss of memory. Affect appropriate for age. EYES: Pupils are equal and reactive to light. No hemorrhages or exudates. Extraocular muscles intact. EAR, NOSE AND THROAT: Oropharynx clean, mucous membranes moist. Ears and nose without masses, lesions or deformities. Tympanic membranes clear bilaterally. Trachea midline. No lymph node swelling or tenderness. RESPIRATORY: Clear to auscultation and percussion. No wheezing, rales or rhonchi. CARDIOVASCULAR: Heart sounds normal. No thrills. Regular rate and rhythm, no murmurs, rubs or gallops. GASTROINTESTINAL: Abdomen soft, nondistended. No pulsatile mass, no flank tenderness or suprapubic tenderness. No hepatosplenomegaly. NEUROLOGIC: Cranial nerves II-XII grossly intact. No focal neurological deficits. Deep tendon reflexes +2 bilaterally. Babinski negative. Moves all extremities spontaneously. Sensation intact bilaterally. SKIN: No rashes or lesions. No petechia. No purpura. Good turgor. No edema. MUSCULOSKELETAL: No cyanosis or clubbing. No gross deformities. Capable of free range of motion without pain or crepitation. No laxity, instability or dislocation. BONE: No misalignment, asymmetry, defect, tenderness or effusion. Capable of from of joint above and below bone. MUSCLE: No crepitation, defect, tenderness, masses or swellings. No loss of muscle tone or strength. LYMPHATIC: Palpation of neck reveals no swelling or tenderness of neck nodes. Palpation of groin reveals no swelling or tenderness of groin nodes. ED Course Vital Signs 10/13/17 10/13/17 10/13/17 00:17 00:53 01:49 Temperature 97.5 F L Pulse Rate 112 H Respiratory 18 20 Rate Blood Pressure 121/86 Blood Pressure [Left] O2 Sat by Pulse 96 99 98 Oximetry 10/13/17 02:12 Temperature 97.7 F Pulse Rate 105 H Respiratory 20 Rate Blood Pressure Blood Pressure 122/85 [Left] O2 Sat by Pulse 98 Oximetry - Reevaluation(s) Reevaluation #1: 10/13/17 03:17 Patient is currently pain-free and wants to go home. ED Medical Decision Making - Lab Data Result diagrams: 10/13/17 01:08 10/13/17 01:08 Critical care attestation.: If time is entered above; I have spent that time in minutes in the direct care of this critically ill patient, excluding procedure time. ED Disposition Clinical Impression: Chest pain Qualifiers: Chest pain type: unspecified Qualified Code(s): R07.9 - Chest pain, unspecified Disposition: DC- TO HOME OR SELFCARE Is pt being admited?: No Does the pt Need Aspirin: No Condition: Stable Instructions: Chest Pain (ED) Referrals: PRIMARY CARE, [Primary Care Provider] - 3-5 Days
[2017-10-13 04:35] VITALS: BP 121/72
== END 2017-10-13 04:58 | disposition home or self-care (01) ==
LOC: ED 23:52
DX: R07.89 Other chest pain (principal); G89.29 Other chronic pain; F10.10 Alcohol abuse, uncomplicated
CPT/HCPCS: 36415; 80048; 84484; 85007; 85025; 93005; 93010; 99284

== ENCOUNTER 2017-10-14 01:16 | Emergency (ER) | payer SELFPAY ==
[2017-10-14 01:44] VITALS: BP 114/76
[2017-10-14] MEDS ORDERED: ASPIRIN PO ONE (04:41)
[2017-10-14 05:42] LABS: Hemoglobin 14.5 gm/dl (11.8-15.2); Mean Corpuscular HGB Conc 33 % (32-34); Mean Corpuscular Hemoglobin 29 pg (28-32); Mean Corpuscular Volume 88 fl (84-94); Platelet Count 121 K/mm3 (140-440); Red Blood Count 4.98 M/mm3 (3.65-5.03); Red Cell Distribution Width 14.7 % (13.2-15.2)
[2017-10-14 05:57] LABS: BUN/Creatinine Ratio 13; Blood Urea Nitrogen 10 mg/dL (9-20); Calcium 8.2 mg/dL (8.4-10.2); Hemolysis Index 5
[2017-10-14 06:53] LABS: Anisocytosis 1+; Basophils % (Manual) 0 % (0.0-1.8); Eosinophils % (Manual) 0 % (0.0-4.3); Hypochromasia 1+; Total Cells Counted 100
[2017-10-14 06:54] LABS: Platelet Estimate Consistent w Auto
== END 2017-10-14 12:20 ==
LOC: ED 01:16
DX: R07.89 Other chest pain (principal); Z53.21 Procedure and treatment not carried out due to patient leaving prior to being seen by health care provider
CPT/HCPCS: 36415; 80048; 84484; 85007; 85025; 93005; 93010

== ENCOUNTER 2017-10-24 02:27 | Emergency (ER) | payer SELFPAY | END 2017-10-24 02:30 | disposition left against medical advice (07) | LOC: ED 02:27 | DX: M54.5 Low back pain (principal); Z53.21 Procedure and treatment not carried out due to patient leaving prior to being seen by health care provider ==

== ENCOUNTER 2017-10-27 01:16 | Emergency (ER) | payer SELFPAY ==
[2017-10-27 01:22] VITALS: BP 142/96
--- NOTE | 2017-10-27 06:36 | Emergency Department Report ---
Chief Complaint: Back Pain/Injury Stated Complaint: BACK PAIN Time Seen by Provider: 10/27/17 04:35 - HPI History of Present Illness: 56-year-old -[place] male presents to the emergency room for complaint of lower back pain reports 10 out of 10 times one day. Patient was just here on the October the fifth, the sixth, the seventh in the for the same concerns. Patient has multiple x-rays of his back. Patient has been referred multiple times to primary care and has not followed up. Patient denies any recent trauma denies lifting anything heavy denies any falls. Patient denies any urinary urgency dysuria frequency or penile discharge. Patient denies any urinary incontinent fecal incontinence. - ROS Review of Systems: Chronic back pain Negative urinary symptoms Negative for trauma Negative fever or chills or nausea vomiting. - Exam Vital Signs: Vital Signs 10/27/17 10/27/17 01:13 02:16 Temperature 98.0 F 98.0 F Pulse Rate 101 H 95 H Respiratory 18 Rate Blood Pressure 142/96 142/96 O2 Sat by Pulse 98 97 Oximetry Physical Exam: Patient alert and oriented 3. Cardiovascular S1-S2 regular rate and rhythm, respiratory clear to auscultation. Full range of motion No vertebral tenderness Normal gait. MSE screening note: Focused history and physical exam performed. Due to findings the following was ordered: Discussed the patient he needs to follow up with orthopedics and or primary care. ED Medical Decision Making - Medical Decision Making Patient has been evaluated by this provider in fast track. Discussed patient that he needs to follow up with primary care or orthopedist. Patient has had the opportunity to sleep in room 29 for the last 5 hours without any requested pain medication without any distressed. ED Disposition for MSE Clinical Impression: Chronic back pain Qualifiers: Back pain location: low back pain Back pain laterality: unspecified Sciatica presence: unspecified whether sciatica present Qualified Code(s): M54.5 - Low back pain; G89.29 - Other chronic pain Disposition: TO HOME OR SELFCARE Is pt being admited?: No Does the pt Need Aspirin: No Condition: Stable Instructions: Chronic Back Pain (ED) Additional Instructions: Please follow up with orthopedics in or primary care provider. I have listed their information below. Referrals: EDY LAYNE MD [Primary Care Provider] - 3-5 Days MYRON CHAMBERS MD [Staff Physician] - 3-5 Days [facility] [Provider Group] - 3-5 Days
== END 2017-10-27 06:45 | disposition home or self-care (01) ==
LOC: ED 01:16
DX: M54.5 Low back pain (principal); G89.29 Other chronic pain
CPT/HCPCS: 99282

== ENCOUNTER 2017-10-31 01:08 | Emergency (ER) | payer SELFPAY ==
--- NOTE | 2017-10-31 02:45 | XRay Report ---
FINAL REPORT EXAM: XR KNEE 3V LT HISTORY: pain, swelling LEFT KNEE TECHNIQUE: Three views of the left knee PRIORS: 09/08/2017 FINDINGS: There are metallic surgical anchors along the medial side of the knee consistent with prior medial collateral ligament repair. There is hypertrophic bone formation along the medial femoral condyle without change. There is a small, chronic appearing soft tissue calcification in the area the medial collateral ligament without change. There is osteophyte formation of the medial and patellofemoral joints without change. Otherwise, the joints are well preserved. The soft tissues are unremarkable. IMPRESSION: 1. Stable postsurgical changes of the left knee consistent with prior MCL repair. 2. No evidence of acute fracture 3. 

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
--- NOTE | 2017-10-31 08:39 | Emergency Department Report ---
ED Lower Extremity HPI - General Chief Complaint: Extremity Problem,Nontraumatic Stated Complaint: LT KNEE PAIN Time Seen by Provider: 10/31/17 05:51 Source: patient Mode of arrival: Ambulatory Limitations: No Limitations - History of Present Illness Initial Comments: 56-year-old -British male presents to the emergency room for complaint of lower back pain reports 10 out of 10 times one day. Patient was just here on the October the , the sixth, the and the for the same concerns. Patient has multiple x-rays of his back. Patient has been referred multiple times to primary care and has not followed up. Patient denies any recent trauma denies lifting anything heavy denies any falls. Patient denies any urinary urgency dysuria frequency or penile discharge. Patient denies any urinary incontinent fecal incontinence. Patient also reports that he has pain to his left knee from recent trauma falling. He said he has a history of left knee surgery. Denies any numbness or tingling to extremities. He said his leg is also swollen on the left side. Denies any chest pain or shortness of breath. Pain is 6 out of 10 achy worsen movement better with rest. He is here today for left knee pain and swelling and concerned about hardware in his left knee. MD Complaint: knee injury (pain swelling and to the left knee and left leg) Onset/Timin -: days(s) Injury: Leg: Left (swelling and pain), Knee: Left (swelling and pain) Type of Injury: blunt Severity: moderate Severity scale (0 -10): 6 Improves With: rest Worsens With: weight bearing, movement Context: fall Associated Symptoms: swelling, ambulatory. denies: snap/pop sensation, numbness , tingling, unable to bear weight, able to partially bear weight Treatments Prior to Arrival: other (swollen and pain) - Related Data Previous Rx's Medication Instructions Recorded Last Taken Type Cyclobenzaprine [Flexeril 10 MG 10 mg PO TID PRN #10 tablet 08/25/17 Unknown Rx TAB] Naproxen 500 mg PO BID PRN #60 tablet 08/25/17 Unknown Rx Pantoprazole [Protonix TAB] 20 mg PO QDAY #30 tablet. 09/03/17 Unknown Rx traMADol [Ultram 50 MG tab] 50 mg PO Q6HR PRN #10 tablet 09/03/17 Unknown Rx traMADol [Ultram 50 MG tab] 50 mg PO Q6HR PRN #20 tablet 09/08/17 Unknown Rx Ibuprofen [Motrin] 600 mg PO Q8H PRN #30 tablet 09/10/17 Unknown Rx Ibuprofen [Motrin] 600 mg PO Q8H PRN #12 tablet 10/31/17 Unknown Rx Allergies Allergy/AdvReac Type Severity Reaction Status Date / Time No Known Allergies Allergy Verified 08/27/17 08:02 ED Review of Systems ROS: Stated complaint: LT KNEE PAIN Other details as noted in HPI Constitutional: denies: chills, fever Eyes: denies: eye pain, eye discharge, vision change Respiratory: denies: cough, shortness of breath, SOB with exertion, SOB at rest , stridor, wheezing Cardiovascular: denies: chest pain, palpitations, dyspnea on exertion Gastrointestinal: denies: nausea, vomiting, diarrhea Musculoskeletal: joint swelling, arthralgia. denies: back pain, myalgia Skin: denies: rash, lesions Neurological: denies: headache, weakness, numbness, paresthesias, abnormal gait , vertigo ED Past Medical Hx - Past Medical History Previous Medical History?: Yes Additional medical history: chronic pain in back, neck and L knee, ETOH abuse. herniated disc - Surgical History Past Surgical History?: Yes Additional Surgical History: Left Knee. skin graft to right hand - Family History Family history: hypertension - Social History Smoking Status: Never Smoker Substance Use Type: Alcohol - Medications Home Medications: Home Medications Medication Instructions Recorded Confirmed Last Taken Type Cyclobenzaprine [Flexeril 10 MG 10 mg PO TID PRN #10 tablet 08/25/17 08/27/17 Unknown Rx TAB] Naproxen 500 mg PO BID PRN #60 tablet 08/25/17 08/27/17 Unknown Rx Pantoprazole [Protonix TAB] 20 mg PO QDAY #30 tablet. 09/03/17 Unknown Rx traMADol [Ultram 50 MG tab] 50 mg PO Q6HR PRN #10 tablet 09/03/17 Unknown Rx traMADol [Ultram 50 MG tab] 50 mg PO Q6HR PRN #20 tablet 09/08/17 Unknown Rx Ibuprofen [Motrin] 600 mg PO Q8H PRN #30 tablet 09/10/17 Unknown Rx Ibuprofen [Motrin] 600 mg PO Q8H PRN #12 tablet 10/31/17 Unknown Rx ED Physical Exam - General Limitations: No Limitations General appearance: alert, in no apparent distress - Head Head exam: Present: atraumatic, normocephalic, normal inspection - Eye Eye exam: Present: normal appearance, PERRL, EOMI. Absent: periorbital swelling , periorbital tenderness Pupils: Present: normal accommodation - ENT ENT exam: Present: mucous membranes moist, TM's normal bilaterally, normal external ear exam - Neck Neck exam: Present: normal inspection, full ROM. Absent: tenderness, lymphadenopathy - Respiratory Respiratory exam: Present: normal lung sounds bilaterally. Absent: respiratory distress, chest wall tenderness - Cardiovascular Cardiovascular Exam: Present: regular rate, normal rhythm, normal heart sounds. Absent: systolic murmur, diastolic murmur - GI/Abdominal GI/Abdominal exam: Present: soft, normal bowel sounds. Absent: distended, tenderness, guarding, rebound, rigid, organomegaly, mass - Extremities Exam Extremities exam: Present: normal inspection, full ROM, tenderness (left knee), normal capillary refill, joint swelling (left knee with mild tenderness), other (No cce. + 2 pulses in all extremities, no neurovascular compromise except patient with swelling without any tenderness to left leg and knee. No erythema. No calf tenderness. Negative Homans sign. No abrasion, contusion or laceration. No pitting edema.). Absent: pedal edema, calf tenderness - Expanded Lower Extremity Exam Left Hip exam: Present: normal inspection, full ROM, pelvic stability. Absent: tenderness, swelling, abrasion, laceration, ecchymosis, deformity, crepidus, dislocation, erythema, external rotation, internal rotation, shortening Upper Leg exam: Present: normal inspection, full ROM. Absent: tenderness, swelling, abrasion, laceration, ecchymosis, deformity, crepidus, dislocation, erythema Knee exam: Present: full ROM, tenderness (left knee), swelling, full knee extension. Absent: normal inspection, abrasion, laceration, ecchymosis, deformity, crepidus, dislocation, erythema, effusion, pain w/ pronation/ supination, posterior draw sign, pain/laxity with valgus, pain/laxity with varus Lower Leg exam: Present: normal inspection, full ROM. Absent: tenderness, swelling, abrasion, laceration, ecchymosis, deformity, crepidus, dislocation, erythema, palpable cord, Karishma's sign Ankle exam: Present: normal inspection, full ROM. Absent: tenderness, swelling , abrasion, laceration, ecchymosis, deformity, crepidus, dislocation, erythema, anterior draw sign Foot/Toe exam: Present: normal inspection, full ROM. Absent: swelling, abrasion , laceration, ecchymosis, deformity, crepidus, dislocation, erythema, amputation , puncture wound, foreign body, calcaneal tenderness, tenderness at base of 5th metatarsal, nail avulsion, subungual hematoma Neuro vascular tendon exam: Present: no vascular compromise, significant pain with passive ROM of distal joint. Absent: pulse deficit, abnormal cap refill, motor deficit, sensory deficit, tendon deficit, extremity cold to touch, pallor , abnormal 2-point discrimination, decreased fine/light touch, foot drop, peroneal nerve deficit Gait: Positive: observed and limited by pain - Back Exam Back exam: Present: normal inspection, full ROM, other (ambulates without any difficulties). Absent: tenderness, CVA tenderness (R), CVA tenderness (L), muscle spasm, paraspinal tenderness, vertebral tenderness, rash noted - Neurological Exam Neurological exam: Present: alert, oriented X3, normal gait, reflexes normal. Absent: motor sensory deficit - Psychiatric Psychiatric exam: Present: normal affect, normal mood - Skin Skin exam: Present: warm, dry, intact, normal color. Absent: rash ED Course Vital Signs 10/31/17 10/31/17 10/31/17 01:12 01:17 05:23 Temperature 97.8 F 98.5 F Pulse Rate 99 H 76 90 Respiratory 20 16 20 Rate Blood Pressure 136/94 126/87 Blood Pressure 138/90 [Right] O2 Sat by Pulse 98 99 98 Oximetry 10/31/17 08:04 Temperature Pulse Rate 94 H Respiratory Rate Blood Pressure 127/86 Blood Pressure [Right] O2 Sat by Pulse 98 Oximetry - Reevaluation(s) Reevaluation #1: 10/31/17 09:02 Patient given Motrin 600 mg when necessary emergency room which relieved this pain. ED Lower Extremity MDM - Radiology Data Venous Doppler duplex left lower extremity negative DVT or SVT. X-ray of left knee reveals no acute findings and stable postsurgical changes. Consistent with MCL repair this was dictated by radiologist and report reviewed by myself.. REBECCA ELIZABETH Male : 1960 MedRec# [id number] 10/31/17 08:38 - Radiology Dept. Note by RENAE MELCHOR Acct Num: [id number] : 1960 Patient Age: 56 LLE VENOUS DUPLEX COMPLETED. VAS LAB PRELIMINARY REPORT; NO EVIDENCE OF DVT/SVT NOTED IN VESSELS/SEGMENTS EXAMINED. PHYSICIANS REPORT TO FOLLOW...(RSK) Initialized on 10/31/17 08:38 - END OF NOTE Patient: REBECCA ELIZABETH MR#: [id number] : 1960 Acct:[id number] Age/Sex: 56 / M ADM Date: 10/31/17 Loc: ED Attending Dr: Ordering Physician: ELOISA ARGUELLO MD Date of Service: 10/31/17 Procedure(s): XR knee 3V LT Accession Number(s): [id number] cc: ED MD JOS Fluoro Time In Minutes: FINAL REPORT EXAM: XR KNEE 3V LT HISTORY: pain, swelling LEFT KNEE TECHNIQUE: Three views of the left knee PRIORS: 09/08/2017 FINDINGS: There are metallic surgical anchors along the medial side of the knee consistent with prior medial collateral ligament repair. There is hypertrophic bone formation along the medial femoral condyle without change. There is a small, chronic appearing soft tissue calcification in the area the medial collateral ligament without change. There is osteophyte formation of the medial and patellofemoral joints without change. Otherwise, the joints are well preserved. The soft tissues are unremarkable. IMPRESSION: 1. Stable postsurgical changes of the left knee consistent with prior MCL repair. 2. No evidence of acute fracture 3. 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 Transcribed By: CLAY Dictated By: GARDENIA MENDOZA MD Electronically Authenticated By: GARDENIA MENDOZA MD Signed Date/Time: 10/31/17244 DD/ 4 - Medical Decision Making This is a 56-year-old male here report that he has left knee pain after fall and and examine swelling to his left leg and is here to be evaluated. She was seen and evaluated by myself and physical findings normal except he has swelling to his left knee and left lower extremity with mild tenderness to left knee. He is able to ambulate without any difficulties. He was also complaining of back pain but his back exam is normal without any vertebral or paraspinal tenderness. He has no loss of bowel or bladder function or any numbness or tingling to extremities. Patient's been here several times this month for similar incident of back problems. He was given Motrin 600 mg by mouth in the emergency room which relieved his pain. Patient had x-ray of left knee which was dictated by radiologist and also venous duplex Doppler left lower extremity which was dictated by radiologist report reviewed by myself in no acute findings. Hardware left knee is intact status post MCL repair. I discussed diagnosis, ultrasound and x-ray findings with patient and treatment plan the patient and he voiced understanding. I discussed with him that he needs to follow-up with orthopedic doctor as previously discussed several times on several visits. He voiced understanding of discharge from his stable condition. Vital signs stable he is afebrile and is feeling better. Critical care attestation.: If time is entered above; I have spent that time in minutes in the direct care of this critically ill patient, excluding procedure time. ED Disposition Clinical Impression: Left anterior knee pain, Leg edema, left Accidental fall Qualifiers: Encounter type: initial encounter Qualified Code(s): W19.XXXA - Unspecified fall, initial encounter Disposition: DC- TO HOME OR SELFCARE Is pt being admited?: No Does the pt Need Aspirin: No Condition: Stable Instructions: Arthralgia (ED), Knee Exercises (GEN), Knee Pain (ED), Leg Edema (ED) Additional Instructions: Please follow-up with your primary care physician and orthopedic doctor as discussed many times. If you do not have a primary care physician follow-up with outside Medical Center Keep left lower extremities elevated loss of midline. Motrin for pain. Referrals: PRIMARY CAREMD [Primary Care Provider] - 11/03/17 [facility] [Outside] - 11/03/17 MYRON CHAMBERS MD [Staff Physician] - 11/03/17 Forms: Work/School Release Form(ED)
[2017-10-31] MEDS ORDERED: MOTRIN PO ONE (09:02)
[2017-10-31 09:32] VITALS: BP 128/94
== END 2017-10-31 09:30 | disposition home or self-care (01) ==
LOC: ED 01:08
DX: M25.562 Pain in left knee (principal); R60.0 Localized edema; M54.5 Low back pain; G89.29 Other chronic pain; W19.XXXA Unspecified fall, initial encounter; Y93.89 Activity, other specified; Y99.8 Other external cause status; Y92.89 Other specified places as the place of occurrence of the external cause

== ENCOUNTER 2017-11-01 00:27 | Emergency (ER) | payer SELFPAY ==
[2017-11-01 03:22] VITALS: BP 126/89
--- NOTE | 2017-11-01 08:26 | Emergency Department Report ---
ED Lower Extremity HPI - General Chief Complaint: Extremity Problem,Nontraumatic Stated Complaint: LT SIDE OF BODY NUMB/PAIN Time Seen by Provider: 11/01/17 08:15 Source: patient Mode of arrival: Ambulatory Limitations: No Limitations - History of Present Illness Initial Comments: Patient here report that he is having left knee pain for 3 days. Patient has been here consistently over the last few days. He was here yesterday and he was seen for his left knee pain and had x-ray of his left knee which is negative and he also had ultrasound of his left lower extremity which was negative for SVT or DVT. He is reporting the pain at 05/17. He said he went to the pharmacy and the pharmacy said to come over here. Patient was given referral to [facility] and to Dr. Roland to follow-up regarding his chronic left knee pain which he said he fell and reinjured. Complaint: knee injury Onset/Timin (ongoing) -: days(s) Injury: Knee: Left (pain) Type of Injury: other (patient said that he fell a few days ago and he was worked up for left knee pain where he has hardware in place and hardware is intact per x-ray yesterday.) Place: street/outdoors Severity: mild Severity scale (0 -10): 3 Improves With: NSAID Worsens With: weight bearing Context: fall (history of fall) Associated Symptoms: swelling, ambulatory. denies: numbness, tingling, unable to bear weight, able to partially bear weight Treatments Prior to Arrival: NSAIDS - Related Data Previous Rx's Medication Instructions Recorded Last Taken Type Cyclobenzaprine [Flexeril 10 MG 10 mg PO TID PRN #10 tablet 08/25/17 Unknown Rx TAB] Naproxen 500 mg PO BID PRN #60 tablet 08/25/17 Unknown Rx Pantoprazole [Protonix TAB] 20 mg PO QDAY #30 tablet. 09/03/17 Unknown Rx traMADol [Ultram 50 MG tab] 50 mg PO Q6HR PRN #10 tablet 09/03/17 Unknown Rx traMADol [Ultram 50 MG tab] 50 mg PO Q6HR PRN #20 tablet 09/08/17 Unknown Rx Ibuprofen [Motrin] 600 mg PO Q8H PRN #30 tablet 09/10/17 Unknown Rx Ibuprofen [Motrin] 600 mg PO Q8H PRN #12 tablet 10/31/17 Unknown Rx Allergies Allergy/AdvReac Type Severity Reaction Status Date / Time No Known Allergies Allergy Verified 08/27/17 08:02 ED Review of Systems ROS: Stated complaint: LT SIDE OF BODY NUMB/PAIN Other details as noted in HPI Constitutional: denies: chills, fever Eyes: denies: eye pain, eye discharge, vision change Respiratory: denies: cough, shortness of breath, SOB with exertion, SOB at rest , stridor, wheezing Cardiovascular: denies: chest pain, palpitations, edema, syncope Gastrointestinal: denies: nausea, vomiting, diarrhea Genitourinary: denies: urgency, dysuria Musculoskeletal: joint swelling, arthralgia. denies: back pain Skin: denies: rash, lesions Neurological: denies: headache, numbness, paresthesias, confusion, abnormal gait , vertigo ED Past Medical Hx - Past Medical History Previous Medical History?: Yes Additional medical history: chronic pain in back, neck and L knee, ETOH abuse. herniated disc - Surgical History Past Surgical History?: Yes Additional Surgical History: Left Knee. skin graft to right hand - Family History Family history: hypertension - Social History Smoking Status: Unknown if ever smoked Substance Use Type: Alcohol - Medications Home Medications: Home Medications Medication Instructions Recorded Confirmed Last Taken Type Cyclobenzaprine [Flexeril 10 MG 10 mg PO TID PRN #10 tablet 08/25/17 08/27/17 Unknown Rx TAB] Naproxen 500 mg PO BID PRN #60 tablet 08/25/17 08/27/17 Unknown Rx Pantoprazole [Protonix TAB] 20 mg PO QDAY #30 tablet. 09/03/17 Unknown Rx traMADol [Ultram 50 MG tab] 50 mg PO Q6HR PRN #10 tablet 09/03/17 Unknown Rx traMADol [Ultram 50 MG tab] 50 mg PO Q6HR PRN #20 tablet 09/08/17 Unknown Rx Ibuprofen [Motrin] 600 mg PO Q8H PRN #30 tablet 09/10/17 Unknown Rx Ibuprofen [Motrin] 600 mg PO Q8H PRN #12 tablet 10/31/17 Unknown Rx ED Physical Exam - General Limitations: No Limitations General appearance: alert, in no apparent distress - Head Head exam: Present: atraumatic, normocephalic, normal inspection - Eye Eye exam: Present: normal appearance, PERRL, EOMI Pupils: Present: normal accommodation - ENT ENT exam: Present: normal exam, normal orophraynx, mucous membranes moist, TM's normal bilaterally, normal external ear exam - Neck Neck exam: Present: normal inspection, full ROM. Absent: tenderness, lymphadenopathy - Respiratory Respiratory exam: Present: normal lung sounds bilaterally. Absent: respiratory distress, chest wall tenderness - Cardiovascular Cardiovascular Exam: Present: regular rate, normal rhythm, normal heart sounds. Absent: systolic murmur, diastolic murmur - GI/Abdominal GI/Abdominal exam: Present: soft, normal bowel sounds. Absent: tenderness - Extremities Exam Extremities exam: Present: normal inspection, full ROM, normal capillary refill , other (ambulates without any difficulties. Patient was healed scar to left knee. No effusion, crepitus or ecchymotic areas.). Absent: tenderness, pedal edema, joint swelling, calf tenderness - Neurological Exam Neurological exam: Present: alert, oriented X3, normal gait - Psychiatric Psychiatric exam: Present: normal affect, normal mood - Skin Skin exam: Present: warm, dry, intact, normal color. Absent: rash ED Course Vital Signs 11/01/17 11/01/17 03:18 08:26 Temperature 975 F H 98.7 F Pulse Rate 98 H Respiratory 12 Rate Blood Pressure 126/89 O2 Sat by Pulse 97 Oximetry - Reevaluation(s) Reevaluation #1: 11/01/17 08:28 Patient is stable throughout ED course. He was here yesterday and worked up for same complaints today. Patient is here on a daily basis due to homelessness. ED Lower Extremity MDM - Medical Decision Making This is a 56-year-old male here report that he hasleft knee pain and he has been coming here for the past several days for similar issue. He was worked up venous Doppler ultrasound and also x-ray of his left lower extremity to include left knee and there are negative. Hardware to left lower extremity is in place. Patient is stable and is in no distress. Patient is homeless and appears to be coming here or alf. He usually gets up and leave in the morning. I discussed the patient that she needs to follow-up with orthopedic and [facility] previously discussed. I gave him Motrin yesterday for pain. I discussed with him that he needs to find a homeless alf as the emergency room is not a place for alf for homelessness. He voiced understanding. Patient discharged her emergency room. Vital signs are stable he is afebrile and he is not in any distress. Critical care attestation.: If time is entered above; I have spent that time in minutes in the direct care of this critically ill patient, excluding procedure time. ED Disposition Clinical Impression: Homelessness, Musculoskeletal pain of left lower extremity Disposition: TO HOME OR SELFCARE Is pt being admited?: No Does the pt Need Aspirin: No Condition: Stable Instructions: Arthralgia (ED), Musculoskeletal Pain (ED) Additional Instructions: Please continue to take Motrin as previously prescribed and take this medication with crackers or something on his stomach as it can cause stomach upset. Orthopedic doctor and [facility] as previously discussed Referrals: PRIMARY CAREMD [Primary Care Provider] - 2-3 Days [facility] [Outside] - 2-3 Days MYRON ROLAND MD [Staff Physician] - 2-3 Days Forms: Work/School Release Form(ED)
== END 2017-11-01 08:35 | disposition home or self-care (01) ==
LOC: ED 00:27
DX: M25.562 Pain in left knee (principal); G89.29 Other chronic pain; Z59.0 Homelessness
CPT/HCPCS: 99281

== ENCOUNTER 2017-11-26 23:28 | Emergency (ER) | payer SELFPAY ==
[2017-11-27 07:48] VITALS: BP 136/87
== END 2017-11-26 23:30 | disposition left against medical advice (07) ==
LOC: ED 23:28
DX: M54.9 Dorsalgia, unspecified (principal); Z53.21 Procedure and treatment not carried out due to patient leaving prior to being seen by health care provider

== ENCOUNTER 2017-11-29 00:58 | Emergency (ER) | payer SELFPAY ==
[2017-11-29 05:49] VITALS: BP 124/82
[2017-11-29] MEDS ORDERED: MOTRIN PO ONE (07:50)
--- NOTE | 2017-11-29 07:50 | Emergency Department Report ---
ED Back Pain/Injury HPI - General Chief Complaint: Back Pain/Injury Stated Complaint: BACK PAIN Source: patient Mode of arrival: Ambulatory Limitations: No Limitations - History of Present Illness MD Complaint: back pain -: year(s) Similar Symptoms Previously: Yes Radiation: none Improves With: other (MOTRIN) Associated Symptoms: denies other symptoms. denies: confusion, weakness, chest pain, numbness, difficulty walking, cough, difficulty urinating, diaphoresis, incontinence, fever/chills, constipation, headaches, abdominal pain, loss of appetite, malaise, nausea/vomiting, rash, seizure, shortness of breath, syncope , other Treatments Prior to Arrival: NSAIDS (RAN OUT) - Related Data Previous Rx's Medication Instructions Recorded Last Taken Type Ibuprofen [Motrin] 200 mg PO Q6H PRN #20 tablet 11/29/17 Unknown Rx Allergies Allergy/AdvReac Type Severity Reaction Status Date / Time No Known Allergies Allergy Verified 08/27/17 08:02 ED Review of Systems ROS: Stated complaint: BACK PAIN Other details as noted in HPI Comment: All other systems reviewed and negative Constitutional: no symptoms reported Eyes: as per HPI Respiratory: no symptoms reported Endocrine: no symptoms reported Gastrointestinal: as per HPI Genitourinary: as per HPI Musculoskeletal: back pain, other (OUT OF HIS MOTRIN AND MISSED HIS PCP APPOINTMENT. NO FALL ) ED Past Medical Hx - Past Medical History chronic pain in back, neck and L knee, ETOH abuse. herniated disc Family history: hypertension - Social History Alcohol use: occasionally ED Back Pain Physical Exam - Exam General: Vital signs noted. No distress. Alert and acting appropriately. Back/Abdomen: No Abdominal Tenderness, No Perithoracic Tenderness, No Perilumbar Tenderness, No Sacroiliac Tenderness, No Flank Tenderness, No Straight Leg Raise Pain Neuro: Yes Normal Sensation, Yes Normal DTR's, Yes Normal Gait (AMBULATORY), No Motor Weakness ED Course Vital Signs 11/29/17 11/29/17 04:22 05:48 Temperature 97.8 F 97.7 F Pulse Rate 79 78 Respiratory 14 20 Rate Blood Pressure 129/88 124/82 O2 Sat by Pulse 98 99 Oximetry - Reevaluation(s) Reevaluation #1: 11/29/17 08:21 PT RESTING COMFORTABLY HERE OFTEN MISSED HIS PCP APPNT DUE TO BUS TRANSPORTATION LIVING WITH BROTHER ON NO MEDS OUT OF HIS MOTRIN NO FALL OR TRAUMA. VSS. NAD NO DYSURIA. ED Medical Decision Making - Medical Decision Making A/C PAIN NO NEW FALL OR TRAUMA MISSED PCP APPNT OUT OF HIS MOTRIN - Differential Diagnosis WELL KNOWN TO US. CHRONIC PAIN, MISSED PCP APPNT. Critical care attestation.: If time is entered above; I have spent that time in minutes in the direct care of this critically ill patient, excluding procedure time. ED Disposition Clinical Impression: Chronic pain Disposition: DC-01 TO HOME OR SELFCARE Is pt being admited?: No Does the pt Need Aspirin: No Condition: Stable Instructions: Low Back Strain (ED) Additional Instructions: FOLLOW UP WITH PCP WE DISCUSSED AVOID ALCOHOL TAKE MED WITH FOOD FOR PAIN Prescriptions: Ibuprofen [Motrin] 200 mg PO Q6H PRN #20 tablet PRN Reason: Pain, Mild (1-3) Referrals: PRIMARY CARE, [Primary Care Provider] - 3-5 Days Time of Disposition: 08:15
== END 2017-11-29 08:43 | disposition home or self-care (01) ==
LOC: ED 00:58
DX: M54.9 Dorsalgia, unspecified (principal); G89.29 Other chronic pain
CPT/HCPCS: 99282

== ENCOUNTER 2017-12-07 02:23 | Emergency (ER) | payer SELFPAY ==
[2017-12-07 04:58] VITALS: BP 117/88
[2017-12-07] MEDS ORDERED: MOTRIN PO ONE (08:37)
--- NOTE | 2017-12-07 09:02 | Emergency Department Report ---
HPI - General Chief Complaint: Back Pain/Injury Time Seen by Provider: 12/07/17 08:49 - HPI HPI: 57-year-old male presents to the emergency department with complaint of exacerbation of his chronic low back pain. The patient is well- known to this emergency department. He was last here on 11/29 for similar symptoms. The patient says that he lost his discharge paperwork including some type of a referral for a back specialist. Patient says that he got swept up watching the [employer] games yesterday and got drunk and somehow exacerbated his back pain. He denies any known fall or trauma. He denies any problems with any bowel or bladder, numbness or paresthesias or any neurological deficits. He has a known history of herniated disc and EtOH abuse. ED Past Medical Hx - Past Medical History Additional medical history: chronic pain in back, neck and L knee, ETOH abuse. herniated disc - Surgical History Additional Surgical History: Left Knee. skin graft to right hand - Social History Smoking Status: Current Every Day Smoker Substance Use Type: Alcohol - Medications Home Medications: Home Medications Medication Instructions Recorded Confirmed Last Taken Type Ibuprofen [Motrin] 200 mg PO Q6H PRN #20 tablet 11/29/17 Unknown Rx Ibuprofen [Motrin 600 MG tab] 600 mg PO Q8H PRN #20 tablet 12/07/17 Unknown Rx ED Review of Systems ROS: Stated complaint: BACK PAIN Other details as noted in HPI Comment: All other systems reviewed and negative Constitutional: denies: chills, fever Eyes: denies: eye pain, eye discharge, vision change ENT: denies: ear pain, throat pain Respiratory: denies: cough, shortness of breath, wheezing Cardiovascular: denies: chest pain, palpitations Gastrointestinal: denies: abdominal pain, nausea, diarrhea Genitourinary: denies: urgency, dysuria Musculoskeletal: back pain. denies: arthralgia Skin: denies: rash, lesions Neurological: denies: headache, numbness Physical Exam - Physical Exam Vital Signs: Vital Signs 12/07/17 04:53 Temperature 98 F Pulse Rate 100 H Respiratory 18 Rate Blood Pressure 117/88 O2 Sat by Pulse 98 Oximetry Physical Exam: GENERAL: The patient is well-developed well-nourished. HENT: Normocephalic. Atraumatic. Patient has moist mucous membranes. EYES: Extraocular motions are intact. Pupils equal reactive to light bilaterally. NECK: Supple. Trachea is midline. CHEST/LUNGS: Clear to auscultation. There is no respiratory distress noted. HEART/CARDIOVASCULAR: Regular. There is no tachycardia. There is no murmur. ABDOMEN: Abdomen is soft, nontender. Patient has normal bowel sounds. There is no abdominal distention. SKIN: Skin is warm and dry. NEURO: The patient is awake, alert, and oriented. The patient is cooperative. The patient has no focal neurologic deficits. The patient has normal speech and gait. MUSCULOSKELETAL: There is no tenderness or deformity. There is no limitation range of motion. There is no evidence of acute injury. Muscle strength 5 out of 5 upper and lower extremities bilaterally including EHL. BACK: There is lumbar paraspinal tenderness to palpation but no midline lumbar or thoracic tenderness, step-off or deformity. ED Course Vital Signs 12/07/17 04:53 Temperature 98 F Pulse Rate 100 H Respiratory 18 Rate Blood Pressure 117/88 O2 Sat by Pulse 98 Oximetry ED Medical Decision Making - Medical Decision Making The patient presents with chronic low back pain for which she has been here many times. There is no signs of any new trauma. The patient has full muscle strength. He is able to ambulate. He has no complaints of any numbness, paresthesias, problems with bowel or bladder or any neurological deficits and therefore he is low suspicion for any of the emergent back conditions such as cauda equina, epidural abscess or cord compression syndrome. The patient came here today mostly because he says that he lost his previous discharge paperwork and any referrals. I did not see any particular referral from his last visit but the patient will be given a referral for an orthopedic group as well as a neurosurgeon for his chronic back pain and alleged history of herniated disks. The patient's last blood work showed no renal insufficiency and the patient will be given a prescription for some anti-inflammatories. Vital signs stable throughout his ED course. He has been instructed to return to the emergency Department with any worsening of his symptoms or any acute distress. - Differential Diagnosis osteoarthritis, muscle spasm, sciatica, herniated disks Critical Care Time: No Critical care attestation.: If time is entered above; I have spent that time in minutes in the direct care of this critically ill patient, excluding procedure time. ED Disposition Clinical Impression: Acute exacerbation of chronic low back pain Disposition: DC-01 TO HOME OR SELFCARE Is pt being admited?: No Condition: Stable Instructions: Chronic Back Pain (ED) Additional Instructions: I have given you a referral for an orthopedic group, [facility], as well as a referral for a local neurosurgeon, Dr. Crouch, to follow up regarding your back pain. Return to the emergency Department with any worsening of your symptoms or any acute distress. Prescriptions: Ibuprofen [Motrin 600 MG tab] 600 mg PO Q8H PRN #20 tablet PRN Reason: Pain Referrals: PRIMARY CAREMD [Primary Care Provider] - 3-5 Days DEANNA CROUCH MD [Staff Physician] - 3-5 Days [facility] [Provider Group] - 3-5 Days Time of Disposition: 09:07
== END 2017-12-07 09:13 | disposition home or self-care (01) ==
LOC: ED 02:23
DX: M54.5 Low back pain (principal); G89.29 Other chronic pain; F17.200 Nicotine dependence, unspecified, uncomplicated
CPT/HCPCS: 99282

== ENCOUNTER 2018-04-29 21:34 | Emergency (ER) | payer SELFPAY ==
[2018-04-29 21:53] VITALS: BP 135/97
--- NOTE | 2018-04-29 21:55 | Emergency Department Report ---
Blank Doc - Documentation Documentation: This is a 57-year-old male that presents with chronic back pain. Patient has mutiple visits to the ED for same complaint. Denies follow-up with the referrals that was given. This initial assessment diagnostic orders/clinical plan/treatment(s) is/are subject to change based on patient's health status, clinical progression and re- assessment by fellow clinical providers in the ED. Further treatment and workup at subsequent clinical providers discretion. Patient/guardians urged not to elope from ED s their condition may be serious if not clinically assessed and managed. Initial orders include: 1-Patient sent to [facility] for further evaluation and treatment
[2018-04-30] MEDS ORDERED: TORADOL IM ONE (00:32)
--- NOTE | 2018-04-30 00:47 | Emergency Department Report ---
ED Back Pain/Injury HPI - General Chief Complaint: Fall Stated Complaint: BACK PAIN Time Seen by Provider: 04/29/18 21:51 Source: patient Limitations: No Limitations - History of Present Illness Initial Comments: Patient is a 57-year-old [place] male who presents for acute on chronic back pain for the past 5 years with frequent frequent exacerbations pt denies new fall injury or trauma pain today is 5/10 exacerbated with weather change, pt climbs 15 stairs multiple times daily at home to get from his room to kitchen denies problems with mobility at home, out or nsaids at this time, requesting refills. there are no exacerbated or other relieving factors. MD Complaint: back pain Onset/Timin -: days(s) Similar Symptoms Previously: Yes Place: home Radiation: none Severity: moderate Severity scale (0 -10): 5 Quality: aching Consistency: constant Improves With: none (is pain they have all you try and treat this is) Worsens With: movement ( as well as, were all identified and S is a UA name yet) Context: bending Associated Symptoms: denies: weakness, numbness, difficulty urinating, incontinence, fever/chills, constipation (IR) - Related Data Previous Rx's Medication Instructions Recorded Last Taken Type Ibuprofen [Motrin] 200 mg PO Q6H PRN #20 tablet 11/29/17 Unknown Rx Ibuprofen [Motrin 600 MG tab] 600 mg PO Q8H PRN #20 tablet 01/03/18 Unknown Rx Cyclobenzaprine [Flexeril] 10 mg PO TID PRN #30 tablet 04/30/18 Unknown Rx Menthol/Camphor [[place] 1 applicatio TP QID PRN #1 tube 04/30/18 Unknown Rx Ointment] Naproxen 500 mg PO BID PRN #30 tablet 04/30/18 Unknown Rx Allergies Allergy/AdvReac Type Severity Reaction Status Date / Time No Known Allergies Allergy Verified 08/27/17 08:02 ED Review of Systems ROS: Stated complaint: BACK PAIN Other details as noted in HPI Constitutional: denies: chills, fever Eyes: denies: eye pain, eye discharge, vision change ENT: denies: ear pain, throat pain Respiratory: denies: cough, shortness of breath, wheezing Cardiovascular: denies: chest pain, palpitations Endocrine: no symptoms reported Gastrointestinal: as per HPI Genitourinary: denies: urgency, dysuria Musculoskeletal: back pain, arthralgia. denies: joint swelling, myalgia Skin: denies: rash, lesions Neurological: denies: headache, weakness, paresthesias Psychiatric: denies: anxiety, depression Hematological/Lymphatic: as per HPI. denies: easy bleeding, easy bruising ED Past Medical Hx - Past Medical History Additional medical history: chronic pain in back, neck and L knee, ETOH abuse. herniated disc - Surgical History Additional Surgical History: Left Knee. skin graft to right hand - Social History Smoking Status: Never Smoker Substance Use Type: Alcohol - Medications Home Medications: Home Medications Medication Instructions Recorded Confirmed Last Taken Type Ibuprofen [Motrin] 200 mg PO Q6H PRN #20 tablet 11/29/17 Unknown Rx Ibuprofen [Motrin 600 MG tab] 600 mg PO Q8H PRN #20 tablet 01/03/18 Unknown Rx Cyclobenzaprine [Flexeril] 10 mg PO TID PRN #30 tablet 04/30/18 Unknown Rx Menthol/Camphor [[place] 1 applicatio TP QID PRN #1 tube 04/30/18 Unknown Rx Ointment] Naproxen 500 mg PO BID PRN #30 tablet 04/30/18 Unknown Rx ED Physical Exam - General Limitations: No Limitations General appearance: alert, in no apparent distress - Head Head exam: Present: atraumatic, normocephalic - Eye Eye exam: Present: normal appearance - ENT ENT exam: Present: mucous membranes moist - Neck Neck exam: Present: normal inspection, full ROM. Absent: tenderness, meningismus, lymphadenopathy, thyromegaly - Respiratory Respiratory exam: Present: normal lung sounds bilaterally. Absent: respiratory distress, wheezes, stridor, chest wall tenderness - Cardiovascular Cardiovascular Exam: Present: regular rate, normal rhythm, normal heart sounds. Absent: systolic murmur, diastolic murmur, rubs, gallop - GI/Abdominal GI/Abdominal exam: Present: soft, normal bowel sounds. Absent: tenderness, bruit, hernia - Rectal Rectal exam: Present: deferred - Extremities Exam Extremities exam: Present: normal inspection - Back Exam Back exam: Present: normal inspection, full ROM, tenderness, muscle spasm, paraspinal tenderness, other (no posterior vertebral point tenderness mild paraspinus muscle pain , no deformity no ecchymosis no swelling pos straight leg right ). Absent: CVA tenderness (R), CVA tenderness (L), vertebral tenderness, rash noted - Expanded Back Exam Expanded Back exam: Absent: saddle anesthesia Back exam: Positive Straight Leg Raise: Right, Negative Straight Leg Raising: Left - Neurological Exam Neurological exam: Present: alert, oriented X3, CN II-XII intact, normal gait, reflexes normal. Absent: motor sensory deficit - Psychiatric Psychiatric exam: Present: normal affect, normal mood - Skin Skin exam: Present: warm, dry, intact, normal color. Absent: rash ED Course Vital Signs 04/29/18 21:42 Temperature 97.9 F Pulse Rate 106 H Respiratory 20 Rate Blood Pressure 135/97 O2 Sat by Pulse 98 Oximetry ED Medical Decision Making - Medical Decision Making this is acute on chronic low back pain without new injury fall or trauma pain is at usual level usual intensity and usual duration as previous exacerbations pain is improved to 2/10 with ketorolac IM, will dc to home with rx for NSAIDs Muscle relaxant, and analgesic balm pt will follow up with pcp in 2-3 days. Critical care attestation.: If time is entered above; I have spent that time in minutes in the direct care of this critically ill patient, excluding procedure time. ED Disposition Clinical Impression: Back pain Qualifiers: Back pain location: low back pain Chronicity: acute Back pain laterality: right Sciatica presence: with sciatica Sciatica laterality: sciatica of right side Qualified Code(s): M54.41 - Lumbago with sciatica, right side Chronic back pain Qualifiers: Back pain location: low back pain Back pain laterality: right Sciatica presence: with sciatica Sciatica laterality: sciatica of right side Qualified Code(s): M54.41 - Lumbago with sciatica, right side; G89.29 - Other chronic pain Disposition: DC-01 TO HOME OR SELFCARE Is pt being admited?: No Does the pt Need Aspirin: No Condition: Stable Instructions: Low Back Strain (ED), Core Strengthening Exercises (GEN) Prescriptions: Cyclobenzaprine [Flexeril] 10 mg PO TID PRN #30 tablet PRN Reason: Muscle Spasm Menthol/Camphor [[place] Ointment] 1 applicatio TP QID PRN #1 tube PRN Reason: pain Naproxen 500 mg PO BID PRN #30 tablet PRN Reason: pain Referrals: DOMONIQUE JUAREZ MD [Primary Care Provider] - 3-5 Days Forms: Work/School Release Form(ED) Time of Disposition: 01:05
== END 2018-04-30 01:22 | disposition home or self-care (01) ==
LOC: ED 21:34
DX: M54.41 Lumbago with sciatica, right side (principal); G89.29 Other chronic pain
CPT/HCPCS: 96372; 99282; J1885

== ENCOUNTER 2018-05-01 23:25 | Inpatient (IN) | payer SELFPAY ==
[2018-05-01] MEDS ORDERED: ASPIRIN PO ONE (23:43)
[2018-05-02 00:27] LABS: BUN/Creatinine Ratio 14; Blood Urea Nitrogen 10 mg/dL (9-20); Calcium 9.1 mg/dL (8.4-10.2); Hemolysis Index 71
[2018-05-02 01:04] LABS: Hematocrit 41.8 % (35.5-45.6); Hemoglobin 13.9 gm/dl (11.8-15.2); Mean Corpuscular HGB Conc 33 % (32-34); Mean Corpuscular Volume 87 fl (84-94); Platelet Count 178 K/mm3 (140-440); Red Blood Count 4.83 M/mm3 (3.65-5.03); Red Cell Distribution Width 14.5 % (13.2-15.2)
--- NOTE | 2018-05-02 01:39 | Emergency Department Report ---
HPI - General Chief Complaint: Chest Pain Time Seen by Provider: 05/02/18 01:27 - [facility] HPI: Room 6 The patient is a 57-year-old male presenting with chief complaint of chest pain. The patient states for 1 week he's had intermittent substernal chest pain associated with shortness of breath and nausea/vomiting. Patient denies diaphoresis. Patient admits to an occasional cough productive of white sputum. She currently gets his pain score of 8/10. The patient states he's never had a stress test or cardiac catheterization Location: Chest Duration: Intermittent times one week Quality: Pain Severity: 8/10 Modifying factors: [see above] Context: [see above] Mode of transportation: [not driving] ED Past Medical Hx - Past Medical History Additional medical history: chronic pain in back, neck and L knee, ETOH abuse. herniated disc - Surgical History Additional Surgical History: Left Knee. skin graft to right hand - Family History Family history: no significant - Social History Smoking Status: Never Smoker Substance Use Type: None (denies illicit drug use), Alcohol (occasional) - Medications Home Medications: Home Medications Medication Instructions Recorded Confirmed Last Taken Type Ibuprofen [Motrin] 200 mg PO Q6H PRN #20 tablet 11/29/17 Unknown Rx Ibuprofen [Motrin 600 MG tab] 600 mg PO Q8H PRN #20 tablet 01/03/18 Unknown Rx Cyclobenzaprine [Flexeril] 10 mg PO TID PRN #30 tablet 04/30/18 Unknown Rx Menthol/Camphor [[place] 1 applicatio TP QID PRN #1 tube 04/30/18 Unknown Rx Ointment] Naproxen 500 mg PO BID PRN #30 tablet 04/30/18 Unknown Rx ED Review of Systems ROS: Stated complaint: CHEST PAIN Other details as noted in HPI Constitutional: denies: diaphoresis Eyes: denies: eye pain ENT: denies: throat pain Respiratory: cough, shortness of breath Cardiovascular: chest pain Endocrine: no symptoms reported Gastrointestinal: nausea, vomiting Genitourinary: denies: dysuria Musculoskeletal: denies: back pain Neurological: denies: headache Physical Exam - Physical Exam Vital Signs: Vital Signs 05/01/18 23:39 Temperature 98.2 F Pulse Rate 97 H Respiratory 16 Rate Blood Pressure 114/83 O2 Sat by Pulse 98 Oximetry Physical Exam: GENERAL: The patient is well-developed well-nourished male sitting on stretcher not appear to be in acute distress. [] HEENT: Normocephalic. Atraumatic. Extraocular motions are intact. Patient has moist mucous membranes. NECK: Supple. Trachea midline CHEST/LUNGS: Clear to auscultation. There is no respiratory distress noted. HEART/CARDIOVASCULAR: Regular. There is no tachycardia. There is no gallop rub or murmur. ABDOMEN: Abdomen is soft, nontender. Patient has normal bowel sounds. There is no abdominal distention. SKIN: There is no rash. There is no edema. There is no diaphoresis. NEURO: The patient is awake, alert, and oriented. The patient is cooperative. The patient has normal speech MUSCULOSKELETAL:There is no evidence of acute injury. ED Course Vital Signs 05/01/18 23:39 Temperature 98.2 F Pulse Rate 97 H Respiratory 16 Rate Blood Pressure 114/83 O2 Sat by Pulse 98 Oximetry ED Medical Decision Making - Lab Data Result diagrams: 05/01/18 23:46 05/01/18 23:46 Laboratory Tests 05/01/18 05/01/18 23:46 23:46 WBC 5.9 RBC 4.83 Hgb 13.9 Hct 41.8 MCV 87 MCH 29 MCHC 33 RDW 14.5 Plt Count 178 Lymph % (Auto) [place] Seg Neutrophils % [place] Sodium 137 Potassium 4.3 Chloride 99.6 Carbon Dioxide 22 Anion Gap 20 BUN 10 Creatinine 0.7 L Estimated GFR > 60 BUN/Creatinine Ratio 14 Glucose 101 H Calcium 9.1 Troponin T < 0.010 - EKG Data -: EKG Interpreted by Me EKG shows normal: sinus rhythm Rate: normal - EKG Data When compared to previous EKG there are: no significant change Interpretation: unchanged when compared t (01/04/2018) - Radiology Data Radiology results: image reviewed (chest x-ray) interpreted by me: Chest x-ray-no definite focal infiltrates, no pneumothorax - Differential Diagnosis ACS, pericarditis, GERD, pneumonia, bronchitis Critical care attestation.: If time is entered above; I have spent that time in minutes in the direct care of this critically ill patient, excluding procedure time. ED Disposition Clinical Impression: Chest pain Disposition: OP ADMIT IP TO THIS HOSP Is pt being admited?: Yes Does the pt Need Aspirin: Yes Condition: Fair Instructions: Chest Pain (ED) Referrals: DOMONIQUE JUAREZ MD [Primary Care Provider] - 3-5 Days Time of Disposition: 02:02 (hospitalist paged (Dr German))
--- NOTE | 2018-05-02 02:21 | XRay Report ---
FINAL REPORT PROCEDURE: XR CHEST 1V AP TECHNIQUE: Chest radiograph anteroposterior view. CPT 12480 HISTORY: chest pain COMPARISON: No prior studies are available for comparison. FINDINGS: Heart: Normal. Mediastinum/Vessels: Normal. Lungs/Pleural space: Lungs are expanded. There are no infiltrates, effusions or pneumothoraces.. Bony thorax: No acute osseous abnormality. Life support devices: None. IMPRESSION: No acute cardiopulmonary abnormality.
[2018-05-02] MEDS ORDERED: TYLENOL PO PRN (03:30)
[2018-05-02] MEDS ORDERED: NITROSTAT SL PRN (03:32)
[2018-05-02] MEDS ORDERED: MORPHINE IV PRN (03:32)
[2018-05-02] MEDS ORDERED: ZOFRAN IV PRN (03:33)
[2018-05-02 03:41] LABS: Basophils % (Manual) 0 % (0.0-1.8); Total Cells Counted 100
[2018-05-02 03:42] LABS: Anisocytosis 1+; Eosinophils % (Manual) 0 % (0.0-4.3); Hypochromasia Few
[2018-05-02] MEDS: NITRO-BID 2% TP SCH ×5 (04:00→19:50)
[2018-05-02] MEDS: HEPARIN SUB-Q SCH ×2 (04:10→19:55)
--- NOTE | 2018-05-02 04:39 | History and Physical Report ---
CHIEF COMPLAINT: Chest pain. HISTORY OF PRESENT ILLNESS: The patient is a 57-year-old male, who has been having substernal chest pain going on for about 1 week. Pain is intermittent and does not radiate and is associated with shortness of breath, nausea and vomiting, but no diaphoresis. There is also history of associated cough productive of white sputum. The patient gave the pain the rate of 8/10. PAST MEDICAL HISTORY: Pertinent for chronic back pain, neck and knee pain. Also, the patient has past medical history of alcohol abuse. PAST SURGICAL HISTORY: Pertinent for left knee surgery, skin graft to right hand. FAMILY HISTORY: Noncontributory. SOCIAL HISTORY: The patient does not smoke, does not use illicit drugs and drinks alcohol occasionally. MEDICATIONS: The patient is on Motrin 600 mg by mouth every 8 hours as needed for pain and Flexeril 10 mg by mouth 3 times daily. Also, the patient is on menthol/camphor ointment one application topically q.i.d. The patient is also on naproxen 500 mg by mouth twice daily as needed for pain. ALLERGIES: There are no known drug allergies. REVIEW OF SYSTEMS: CONSTITUTIONAL: There is no fever, no chills, no diaphoresis. HEENT: There is no headache or sore throat. CARDIOVASCULAR SYSTEM: Chest pain is present. No orthopnea. RESPIRATORY SYSTEM: Shortness of breath is present. Cough is present. GASTROINTESTINAL SYSTEM: Nausea and vomiting present. No abdominal pain, diarrhea or constipation. NEUROLOGICAL: There is no numbness, no dizziness, no altered mental status. MUSCULOSKELETAL: There is no joint pain or swelling. DERMATOLOGICAL SYSTEM: There is no skin rash or itching. GENITOURINARY SYSTEM: There is no dysuria, hematuria, or flank pain. Rest of system review is normal. PHYSICAL EXAMINATION: GENERAL: At the time of exam, the patient was found to be alert and oriented x 3, and not in acute distress. VITAL SIGNS: At initial time of presentation showed temperature of 98.2 degrees Fahrenheit, pulse of 97, respirations 16, blood pressure 114/83, O2 sat of 98% on room air. HEENT: Show pupils to be equal, round, reactive to light and accommodating. Extraocular muscles are intact. NECK: Supple with no JVD or carotid bruit. CARDIOVASCULAR SYSTEM: Show normal first and second heart sounds with no gallops or murmurs. RESPIRATORY SYSTEM: Show good air entry on both sides of the lung with no abnormal breath sounds. GASTROINTESTINAL SYSTEM: Show abdomen to be full, soft, nontender with no organomegaly or rigidity. NEUROLOGIC: Shows no focal deficit. MUSCULOSKELETAL SYSTEM: Show no joint swelling or tenderness. DERMATOLOGICAL SYSTEM: No skin rash. GENITOURINARY SYSTEM: Showing no costovertebral angle tenderness. PERTINENT LABORATORY AND IMAGING STUDIES: The patient has chest x-ray done that shows no acute cardiopulmonary lesion. Also, the patient's lab results show CBC with normal white count, normal hemoglobin, normal hematocrit with CBC differential showing elevated monocyte count of 8%. The patient's chemistry was unremarkable. Cardiac enzyme and troponin came back normal. DIAGNOSIS: Chest pain. PLAN OF CARE: 1. The patient will be admitted to telemetry. 2. The patient will have cardiac enzymes involving troponin, total CK, and CK-MB checked serially every 6 hours x 2 more levels. 3. The patient will be n.p.o. and will have Lexiscan stress test done in the morning. 4. The patient will be on aspirin 325 mg by mouth daily. 5. The patient will be on nitro paste half inch to anterior chest wall q.i.d. and also the patient will be on Nitrostat 0.4 mg every 5 minutes as needed for breakthrough pain. 6. The patient will be on IV morphine 2 mg every 3 hours as needed for pain and IV Zofran 4 mg every 8 hours for nausea and vomiting. 7. The patient will be on Tylenol 650 mg by mouth every 4 hours as needed for fever and headache and will be on subcutaneous heparin 5000 units every 12 hours. 8. The patient will be n.p.o. for Lexiscan stress test this morning. 9. The patient will be on oxygen by nasal cannula at 2 liters per minute. JOB# [id number] OCN/NTS
[2018-05-02 07:06] LABS: Creatine Kinase MB 3.6 ng/mL (0.0-4.0)
[2018-05-02] MEDS ORDERED: LEXISCAN IV ONE (08:04)
[2018-05-02] MEDS: ASPIRIN PO SCH (10:45)
[2018-05-02 14:20] LABS: Creatine Kinase MB 3.4 ng/mL (0.0-4.0)
--- NOTE | 2018-05-02 15:22 | Progress Note ---
Assessment and Plan Assessment and plan: Chest pain. Lexiscan pending. Cardiac isoenzymes negative. ETOH abuse. Consider CIWA. Currently stable History Interval history: no new issues overnight Hospitalist Physical - Constitutional Vitals: Temp Pulse Resp BP Pulse Ox 98.0 F 86 18 122/82 99 05/02/18 11:38 05/02/18 11:38 05/02/18 11:38 05/02/18 11:38 05/02/18 11:38 General appearance: Present: no acute distress, well-nourished - EENT Eyes: Present: PERRL, EOM intact ENT: hearing intact, clear oral mucosa, dentition normal - Neck Neck: Present: supple, normal ROM - Respiratory Respiratory effort: normal Respiratory: bilateral: CTA - Cardiovascular Rhythm: regular Heart Sounds: Present: S1 & S2. Absent: gallop, rub - Extremities Extremities: no ischemia, No edema, Full ROM - Abdominal General gastrointestinal: soft, non-tender, non-distended, normal bowel sounds - Integumentary Integumentary: Present: clear, warm, dry - Neurologic Neurologic: CNII-XII intact, moves all extremities Results - Labs CBC & Chem 7: 05/01/18 23:46 05/01/18 23:46 Labs: Laboratory Last Values WBC 5.9 K/mm3 (4.5-11.0) 05/01/18 23:46 RBC 4.83 M/mm3 (3.65-5.03) 05/01/18 23:46 Hgb 13.9 gm/dl (11.8-15.2) 05/01/18 23:46 Hct 41.8 % (35.5-45.6) 05/01/18 23:46 MCV 87 fl (84-94) 05/01/18 23:46 MCH 29 pg (28-32) 05/01/18 23:46 MCHC 33 % (32-34) 05/01/18 23:46 RDW 14.5 % (13.2-15.2) 05/01/18 23:46 Plt Count 178 K/mm3 (140-440) 05/01/18 23:46 Lymph % (Auto) Gravity Prospector 05/01/18 23:46 Add Manual Diff Complete 05/01/18 23:46 Total Counted 100 05/01/18 23:46 Seg Neutrophils % Gravity Prospector 05/01/18 23:46 Seg Neuts % (Manual) 58.0 % (40.0-70.0) 05/01/18 23:46 Band Neutrophils % 0 % 05/01/18 23:46 Lymphocytes % (Manual) 34.0 % (13.4-35.0) 05/01/18 23:46 Reactive Lymphs % (Man) 0 % 05/01/18 23:46 Monocytes % (Manual) 8.0 % (0.0-7.3) H 05/01/18 23:46 Eosinophils % (Manual) 0 % (0.0-4.3) 05/01/18 23:46 Basophils % (Manual) 0 % (0.0-1.8) 05/01/18 23:46 Metamyelocytes % 0 % 05/01/18 23:46 Myelocytes % 0 % 05/01/18 23:46 Promyelocytes % 0 % 05/01/18 23:46 Blast Cells % 0 % 05/01/18 23:46 Nucleated RBC % Not Reportable 05/01/18 23:46 Seg Neutrophils # Man 3.4 K/mm3 (1.8-7.7) 05/01/18 23:46 Band Neutrophils # 0.0 K/mm3 05/01/18 23:46 Lymphocytes # (Manual) 2.0 K/mm3 (1.2-5.4) 05/01/18 23:46 Abs React Lymphs (Man) 0.0 K/mm3 05/01/18 23:46 Monocytes # (Manual) 0.5 K/mm3 (0.0-0.8) 05/01/18 23:46 Eosinophils # (Manual) 0.0 K/mm3 (0.0-0.4) 05/01/18 23:46 Basophils # (Manual) 0.0 K/mm3 (0.0-0.1) 05/01/18 23:46 Metamyelocytes # 0.0 K/mm3 05/01/18 23:46 Myelocytes # 0.0 K/mm3 05/01/18 23:46 Promyelocytes # 0.0 K/mm3 05/01/18 23:46 Blast Cells # 0.0 K/mm3 05/01/18 23:46 WBC Morphology Not Reportable 05/01/18 23:46 Hypersegmented Neuts Not Reportable 05/01/18 23:46 Hyposegmented Neuts Not Reportable 05/01/18 23:46 Hypogranular Neuts Not Reportable 05/01/18 23:46 Smudge Cells Not Reportable 05/01/18 23:46 Toxic Granulation Not Reportable 05/01/18 23:46 Toxic Vacuolation Not Reportable 05/01/18 23:46 Dohle Bodies Not Reportable 05/01/18 23:46 Pelger-Huet Anomaly Not Reportable 05/01/18 23:46 Katie Rods Not Reportable 05/01/18 23:46 Platelet Estimate Appears normal 05/01/18 23:46 Clumped Platelets Not Reportable 05/01/18 23:46 Plt Clumps, EDTA Not Reportable 05/01/18 23:46 Large Platelets Not Reportable 05/01/18 23:46 Giant Platelets Not Reportable 05/01/18 23:46 Platelet Satelliting Not Reportable 05/01/18 23:46 Plt Morphology Comment Not Reportable 05/01/18 23:46 RBC Morphology Not Reportable 05/01/18 23:46 Dimorphic RBCs Not Reportable 05/01/18 23:46 Polychromasia Not Reportable 05/01/18 23:46 Hypochromasia Few 05/01/18 23:46 Poikilocytosis Not Reportable 05/01/18 23:46 Anisocytosis 1+ 05/01/18 23:46 Microcytosis Not Reportable 05/01/18 23:46 Macrocytosis Not Reportable 05/01/18 23:46 Spherocytes Not Reportable 05/01/18 23:46 Pappenheimer Bodies Not Reportable 05/01/18 23:46 Sickle Cells Not Reportable 05/01/18 23:46 Target Cells Not Reportable 05/01/18 23:46 Tear Drop Cells Not Reportable 05/01/18 23:46 Ovalocytes Not Reportable 05/01/18 23:46 Helmet Cells Not Reportable 05/01/18 23:46 [place] Walk Bodies Not Reportable 05/01/18 23:46 Alto Rings Not Reportable 05/01/18 23:46 Hope Cells Not Reportable 05/01/18 23:46 Bite Cells Not Reportable 05/01/18 23:46 Crenated Cell Not Reportable 05/01/18 23:46 Elliptocytes Not Reportable 05/01/18 23:46 Acanthocytes (Spur) Not Reportable 05/01/18 23:46 Rouleaux Not Reportable 05/01/18 23:46 Hemoglobin C Crystals Not Reportable 05/01/18 23:46 Schistocytes Not Reportable 05/01/18 23:46 Malaria parasites Not Reportable 05/01/18 23:46 Connor Bodies Not Reportable 05/01/18 23:46 Hem Pathologist Commnt No 05/01/18 23:46 Sodium 137 mmol/L (137-145) 05/01/18 23:46 Potassium 4.3 mmol/L (3.6-5.0) 05/01/18 23:46 Chloride 99.6 mmol/L (98-107) 05/01/18 23:46 Carbon Dioxide 22 mmol/L (22-30) 05/01/18 23:46 Anion Gap 20 mmol/L 05/01/18 23:46 BUN 10 mg/dL (9-20) 05/01/18 23:46 Creatinine 0.7 mg/dL (0.8-1.5) L 05/01/18 23:46 Estimated GFR > 60 ml/min 05/01/18 23:46 BUN/Creatinine Ratio 14 % 05/01/18 23:46 Glucose 101 mg/dL (75-100) H 05/01/18 23:46 Calcium 9.1 mg/dL (8.4-10.2) 05/01/18 23:46 Total Creatine Kinase 214 units/L (55-170) H 05/02/18 13:04 CK-MB (CK-2) 3.4 ng/mL (0.0-4.0) 05/02/18 13:04 CK-MB (CK-2) Rel Index 1.5 (0-4) 05/02/18 13:04 Troponin T < 0.010 ng/mL (0.00-0.029) 05/02/18 13:04
--- NOTE | 2018-05-02 22:00 | Treadmill Report ---
NUCLEAR STRESS TEST LOCATION: Room 476 REFERRING PHYSICIAN: Hospitalist service PROTOCOL: The patient was brought to the stress lab in a postabsorptive state, given 10 mCi of technetium 99m at rest. The patient underwent rest imaging. The patient underwent Lexiscan stress test per standard protocol. At peak stress, the patient was given 26 mCi of technetium 99m. Shortly after patient underwent stress imaging. Raw imaging reveals mild GI artifact, no significant motion artifact. SPECT image examined carefully in horizontal long axis, vertical long axis, short axis views. There is normal muscle uptake at rest in all 4 segments. No evidence of a significant fixed or reversible perfusion defects suggestive of prior infarction or ischemia. Gated wall motion reveals normal systolic thickening with a calculated ejection fraction of 73%, no TID. CONCLUSIONS: 1. Normal myocardial perfusion scan without evidence of active ischemia or prior infarction. 2. Normal left ventricular systolic performance without evidence of transient ischemic dilatation or stress-induced segmental wall motion abnormalities. JOB# [id number] DOE/GRETCHEN
[2018-05-03] MEDS: HEPARIN SUB-Q SCH (04:23)
[2018-05-03 05:46] VITALS: BP 104/71
[2018-05-03] MEDS: NITRO-BID 2% TP SCH ×2 (05:46→09:48)
[2018-05-03 05:48] LABS: Basophils % (Auto) 0.3 % (0.0-1.8); Eosinophils # (Auto) 0.1 K/mm3 (0.0-0.4); Eosinophils % (Auto) 2.1 % (0.0-4.3); Hematocrit 40.1 % (35.5-45.6); Hemoglobin 13.3 gm/dl (11.8-15.2); Lymphocytes # (Auto) 2.7 K/mm3 (1.2-5.4); Lymphocytes % (Auto) 43.8 % (13.4-35.0); Mean Corpuscular HGB Conc 33 % (32-34); Mean Corpuscular Volume 86 fl (84-94); Monocytes # (Auto) 0.6 K/mm3 (0.0-0.8); Monocytes % (Auto) 9.5 % (0.0-7.3); Platelet Count 160 K/mm3 (140-440); Red Blood Count 4.64 M/mm3 (3.65-5.03); Red Cell Distribution Width 13.9 % (13.2-15.2)
[2018-05-03 06:05] LABS: BUN/Creatinine Ratio 13; Blood Urea Nitrogen 9 mg/dL (9-20); Calcium 8.4 mg/dL (8.4-10.2); Hemolysis Index 8
[2018-05-03] MEDS: ASPIRIN PO SCH (09:47)
[2018-05-03] MEDS ORDERED: HEPARIN SUB-Q SCH (10:00)
--- NOTE | 2018-05-03 10:14 | Discharge Summary ---
Providers - Providers Date of Admission: 05/02/18 02:34 Date of discharge: 05/03/18 Attending physician: KEANU BERG [facility] Reason for admission: cp Condition: Fair Hospital course: he patient is a 57-year-old male presenting with chief complaint of chest pain. The patient states for 1 week he's had intermittent substernal chest pain associated with shortness of breath and nausea/vomiting. Patient denies diaphoresis. Patient admits to an occasional cough productive of white sputum. She currently gets his pain score of 8/10. The patient stated he had never had a stress test or cardiac catheterization. Chest x-ray revealed no acute cardiopulmonary abnormalities. Cardiac isoenzymes were found to be negative. Patient underwent myocardial perfusion scan that showed no evidence of active ischemia or prior infarction. Normal left ventricular systolic performance wi thout evidence of transient ischemic dilatation or stress-induced segmental wall motion abnormalities. Etiology of chest pain is likely secondary to GERD. Patient will be discharged with Protonix. Dedicated discharge time 31 minutes. Disposition: DC- TO HOME OR SELFCARE Time spent for discharge: 31 - Discharge Diagnoses (1) GERD (gastroesophageal reflux disease) Status: Acute (2) Chest pain Status: Acute Core Measure Documentation - Palliative Care Palliative Care/ Comfort Measures: Not Applicable - Core Measures Any of the following diagnoses?: none Exam - Constitutional Vitals: Temp Pulse Resp BP Pulse Ox 98.3 F 86 17 104/71 94 05/03/18 04:32 05/03/18 08:10 05/03/18 04:32 05/03/18 05:46 05/03/18 04:32 General appearance: Present: no acute distress, well-nourished - EENT Eyes: Present: PERRL ENT: hearing intact, clear oral mucosa - Neck Neck: Present: supple, normal ROM - Respiratory Respiratory effort: normal Respiratory: bilateral: CTA - Cardiovascular Heart Sounds: Present: S1 & S2. Absent: rub, click - Extremities Extremities: pulses symmetrical, No edema Peripheral Pulses: within normal limits - Abdominal General gastrointestinal: Present: soft, non-tender, non-distended, normal bowel sounds Male genitourinary: Present: normal - Integumentary Integumentary: Present: clear, warm, dry - Musculoskeletal Musculoskeletal: gait normal, strength equal bilaterally - Psychiatric Psychiatric: appropriate mood/affect, intact judgment & insight - Neurologic Neurologic: CNII-XII intact, moves all extremities Plan Activity: no restrictions Weight Bearing Status: Full Weight Bearing Diet: regular Follow up with: DOMONIQUE JUAREZ MD [Primary Care Provider] - 3-5 Days
== END 2018-05-03 13:53 | disposition home or self-care (01) | DRG 392 ==
LOC: ED 23:25 → 4A 05-02 02:34
PROVIDERS: ADMIT Internal Medicine; ATTEND Hospitalist
DX: K21.9 Gastro-esophageal reflux disease without esophagitis (principal); G89.29 Other chronic pain; M54.9 Dorsalgia, unspecified; F10.10 Alcohol abuse, uncomplicated; Y90.0 Blood alcohol level of less than 20 mg/100 ml
CPT/HCPCS: 36415; 71045; 78452; 80048; 82550; 82553; 84484; 85007; 85025; 93005; 93010; 93017; G0378; A9502; J1644; J2785

== ENCOUNTER 2018-05-04 22:24 | Emergency (ER) | payer SELFPAY ==
[2018-05-05] MEDS ORDERED: ZOFRAN IV ONE (03:08)
--- NOTE | 2018-05-05 03:15 | Emergency Department Report ---
<LIVSABACARLOZINGRID JatinAshley - Last Filed: 05/05/18 03:11> ED Abdominal Pain HPI - General Chief Complaint: Chest Pain Stated Complaint: LOWER BACK CHEST PAIN Time Seen by Provider: 05/05/18 03:04 Source: patient Mode of arrival: Ambulatory Limitations: No Limitations - History of Present Illness Initial Comments: Patient is 57 years old male with no significant past medical history. Patient was recently discharged from the hospital after he was admitted for chest pain and patient has been ruled out. Patient presented to the ER complaining of left upper and lower quadrant abdominal pain since last night. Patient stated that pain associated with nausea and vomiting but no diarrhea. Patient denied any fever or chills. No chest pain or shortness of breath. MD Complaint: abdominal pain -: Last night Location: [facility] Radiation: LLQ Severity: moderate Severity scale (0 -10): 6 Quality: sharp - Related Data Previous Rx's Medication Instructions Recorded Last Taken Type Pantoprazole [Protonix] 40 mg PO QDAY #30 tablet 05/03/18 Unknown Rx oxyCODONE /ACETAMINOPHEN [Percocet 1 tab PO Q6HR PRN #10 tablet 05/03/18 Unknown Rx 5/325] Dicyclomine [Bentyl] 10 mg PO QID PRN #20 capsule 05/05/18 Unknown Rx Promethazine [Phenergan TAB] 25 mg PO Q8HR PRN #12 tab 05/05/18 Unknown Rx cephALEXin [Keflex] 500 mg PO Q6HR #20 capsule 05/05/18 Unknown Rx Allergies Allergy/AdvReac Type Severity Reaction Status Date / Time No Known Allergies Allergy Verified 08/27/17 08:02 ED Review of Systems Comment: All other systems reviewed and negative Constitutional: denies: chills, fever Respiratory: denies: cough, orthopnea, shortness of breath, SOB with exertion, SOB at rest, wheezing Cardiovascular: chest pain. denies: palpitations, dyspnea on exertion Gastrointestinal: abdominal pain, nausea, vomiting. denies: diarrhea, constipation, hematemesis, melena, hematochezia Musculoskeletal: denies: back pain Neurological: denies: headache, weakness, numbness, paresthesias, confusion, abnormal gait ED Past Medical Hx - Past Medical History Previous Medical History?: Yes Additional medical history: chronic pain in back, neck and L knee, ETOH abuse. herniated disc - Surgical History Additional Surgical History: Left Knee. skin graft to right hand - Social History Smoking Status: Unknown if ever smoked Substance Use Type: Alcohol - Medications Home Medications: Home Medications Medication Instructions Recorded Confirmed Last Taken Type Pantoprazole [Protonix] 40 mg PO QDAY #30 tablet 05/03/18 Unknown Rx oxyCODONE /ACETAMINOPHEN [Percocet 1 tab PO Q6HR PRN #10 tablet 05/03/18 Unknown Rx 5/325] Dicyclomine [Bentyl] 10 mg PO QID PRN #20 capsule 05/05/18 Unknown Rx Promethazine [Phenergan TAB] 25 mg PO Q8HR PRN #12 tab 05/05/18 Unknown Rx cephALEXin [Keflex] 500 mg PO Q6HR #20 capsule 05/05/18 Unknown Rx ED Physical Exam - General Limitations: No Limitations General appearance: alert, in no apparent distress - Head Head exam: Present: atraumatic, normocephalic, normal inspection - Eye Eye exam: Present: normal appearance, PERRL - ENT ENT exam: Present: normal exam, normal orophraynx, mucous membranes moist - Neck Neck exam: Present: normal inspection, full ROM. Absent: tenderness, meningismus, lymphadenopathy, thyromegaly - Respiratory Respiratory exam: Present: normal lung sounds bilaterally. Absent: respiratory distress, wheezes, rales, rhonchi, chest wall tenderness, accessory muscle use, decreased breath sounds, prolonged expiratory - Cardiovascular Cardiovascular Exam: Present: regular rate, normal rhythm, normal heart sounds - GI/Abdominal GI/Abdominal exam: Present: soft, tenderness (left upper quadrant), normal bowel sounds. Absent: distended, guarding, rebound, rigid, organomegaly, mass, bruit, pulsatile mass - Extremities Exam Extremities exam: Present: normal inspection, full ROM, normal capillary refill. Absent: tenderness, pedal edema, calf tenderness - Back Exam Back exam: Present: normal inspection, full ROM. Absent: CVA tenderness (R), CVA tenderness (L), muscle spasm, paraspinal tenderness, vertebral tenderness - Neurological Exam Neurological exam: Present: alert, oriented X3, CN II-XII intact - Skin Skin exam: Present: warm, intact, normal color ED Medical Decision Making - EKG Data -: EKG Interpreted by Me EKG shows normal: sinus rhythm Rate: tachycardia - EKG Data Interpretation: no acute changes ED Disposition Clinical Impression: Abdominal pain Disposition: DC-01 TO HOME OR SELFCARE Condition: Stable Instructions: Acute Abdominal Pain (ED) Additional Instructions: RETURN IF WORSE Prescriptions: cephALEXin [Keflex] 500 mg PO Q6HR #20 capsule Dicyclomine [Bentyl] 10 mg PO QID PRN #20 capsule PRN Reason: pain Promethazine [Phenergan TAB] 25 mg PO Q8HR PRN #12 tab PRN Reason: Nausea Referrals: OREN LIRAVERBENA MD LEILANI [Primary Care Provider] - 3-5 Days [facility], [Provider Group] - 3-5 Days [facility] [Provider Group] - 3-5 Days JORDAN MUSE MD [Staff Physician] - 3-5 Days <CHRIS MEEKS - Last Filed: 05/05/18 07:40> ED Review of Systems ROS: Stated complaint: LOWER BACK CHEST PAIN Other details as noted in HPI ED Course Vital Signs 05/04/18 05/05/18 05/05/18 23:13 02:51 04:01 Temperature 97.5 F L 98.2 F Pulse Rate 115 H 95 H 93 H Respiratory 18 18 17 Rate Blood Pressure 117/87 107/72 Blood Pressure 103/71 [Left] O2 Sat by Pulse 96 99 93 Oximetry 05/05/18 05/05/18 05:01 07:00 Temperature Pulse Rate 86 96 H Respiratory 18 13 Rate Blood Pressure 99/61 109/69 Blood Pressure [Left] O2 Sat by Pulse 95 Oximetry ED Medical Decision Making - Lab Data Result diagrams: 05/05/18 03:29 05/05/18 03:29 - Medical Decision Making Addendum by Chris Meeks M.D. Discussed was also patient The patient was sound asleep Patient states he feels better and is ready to go home Discussed with patient need to follow-up with his primary care physician or with services provided to him Critical care attestation.: If time is entered above; I have spent that time in minutes in the direct care of this critically ill patient, excluding procedure time. ED Disposition Is pt being admited?: No Does the pt Need Aspirin: No Time of Disposition: 07:38
[2018-05-05 04:21] LABS: Basophils % (Auto) 0.4 % (0.0-1.8); Eosinophils % (Auto) 0.5 % (0.0-4.3); Hematocrit 40.6 % (35.5-45.6); Hemoglobin 13.6 gm/dl (11.8-15.2); Lymphocytes # (Auto) 3.6 K/mm3 (1.2-5.4); Lymphocytes % (Auto) 44.2 % (13.4-35.0); Mean Corpuscular HGB Conc 34 % (32-34); Mean Corpuscular Volume 88 fl (84-94); Monocytes # (Auto) 0.5 K/mm3 (0.0-0.8); Monocytes % (Auto) 6.2 % (0.0-7.3); Platelet Count 163 K/mm3 (140-440); Red Blood Count 4.65 M/mm3 (3.65-5.03); Red Cell Distribution Width 14.7 % (13.2-15.2)
[2018-05-05 05:19] LABS: Alanine Aminotransferase 15 units/L (7-56); Albumin 4.8 g/dL (3.9-5); BUN/Creatinine Ratio 16; Blood Urea Nitrogen 13 mg/dL (9-20); Calcium 9.2 mg/dL (8.4-10.2); Hemolysis Index 8
[2018-05-05 05:22] LABS: Bilirubin,Direct < 0.2 mg/dL (0-0.2)
[2018-05-05] MEDS ORDERED: NACL 0.9% 50 ML ONE (05:46)
--- NOTE | 2018-05-05 06:23 | Cat Scan Report ---
FINAL REPORT PROCEDURE: CT ABDOMEN PELVIS W CON TECHNIQUE: Computerized axial tomography of the abdomen and pelvis was performed after the IV inject ion of iodinated nonionic contrast. HISTORY: Abdominal Pain COMPARISON: No prior studies are available for comparison. FINDINGS: Visualized lower thorax: No significant abnormality. Liver: Normal size and attenuation. Spleen: Normal size and attenuation. Gallbladder and biliary system: Normal. Pancreas: Normal. Adrenals: Normal. Kidneys: Normal. GI tract: Normal. Lymph nodes and mesentery: Normal. Vasculature: Normal. Bladder: Normal. Reproductive organs: Normal. Peritoneum: No free fluid. Musculoskeletal structures: No significant abnormality. Other: None. IMPRESSION: There is no evidence of an acute inflammatory change in the abdomen or pelvis. The appendix is normal .
[2018-05-05] MEDS ORDERED: D50W (25GM) Syringe IV ONE (06:49)
[2018-05-05 07:02] VITALS: BP 109/69
[2018-05-05 08:14] LABS: Bacteria,Urine 2+ /HPF (Negative); Bilirubin,Urine NEG (Negative); Blood,Urine SM (Negative); Color,Urine Yellow (Yellow); Mucus,Urine FEW /HPF; Protein,Urine <15 mg/dL mg/dL (Negative); Urobilinogen,Urine < 2.0 mg/dL (<2.0)
== END 2018-05-05 07:51 | disposition home or self-care (01) ==
LOC: ED 22:24
DX: R10.12 Left upper quadrant pain (principal); R11.2 Nausea with vomiting, unspecified; R07.89 Other chest pain; M54.9 Dorsalgia, unspecified; M54.2 Cervicalgia; M25.562 Pain in left knee; G89.29 Other chronic pain
CPT/HCPCS: 36415; 74177; 80048; 80076; 81001; 82962; 83690; 84484; 85025; 93005; 93010; 96374; 96375; 99284; J2405; Q9967

== ENCOUNTER 2018-05-08 23:54 | Inpatient (IN) | payer SELFPAY ==
[2018-05-09] MEDS ORDERED: ASPIRIN PO ONE (00:09)
[2018-05-09 00:54] LABS: Basophils % (Auto) 0.1 % (0.0-1.8); Eosinophils # (Auto) 0.1 K/mm3 (0.0-0.4); Eosinophils % (Auto) 1.7 % (0.0-4.3); Hematocrit 40.6 % (35.5-45.6); Hemoglobin 13.9 gm/dl (11.8-15.2); Lymphocytes # (Auto) 2.5 K/mm3 (1.2-5.4); Lymphocytes % (Auto) 49.7 % (13.4-35.0); Mean Corpuscular HGB Conc 34 % (32-34); Mean Corpuscular Volume 86 fl (84-94); Monocytes # (Auto) 0.6 K/mm3 (0.0-0.8); Platelet Count 152 K/mm3 (140-440); Red Cell Distribution Width 14.7 % (13.2-15.2)
[2018-05-09 01:23] LABS: BUN/Creatinine Ratio 9; Blood Urea Nitrogen 7 mg/dL (9-20); Calcium 9.1 mg/dL (8.4-10.2); Hemolysis Index 10
--- NOTE | 2018-05-09 06:14 | Emergency Department Report ---
ED Chest Pain HPI - General Chief Complaint: Chest Pain Stated Complaint: LOWER BACK PAIN/CP Time Seen by Provider: 05/09/18 06:08 Source: patient Mode of arrival: Ambulatory Limitations: No Limitations - History of Present Illness Initial Comments: This is a 57-year-old male who states "Doc, I really should've come in earlier". He likes to mention that he has had prior workup as below indicated for chest pain. He denies that he is abusing alcohol. He denies homelessness per presents with 2 black plastic bags. He states that he has intermittent s ubsternal sharp pain which does not radiate. Sometimes he has redness of breath on exertion but not at rest. He has no significant cough nausea vomiting dizziness diaphoresis or pleuritic pain. He denies leg pain or swelling. He denies a specific diagnosis of a cardiac or pulmonary problem. As per last chest pain workup here: 57 year old male with past medical history of alcohol abuse chronic back, neck, and left knee pain presents to the hospital complaints of chest pain and ongoing left leg pain for several months. Patient is alcoholic and is currently acutely intoxicated. He complains of sternal chest pain and is reproducible with palpation. He complains of left leg pain with his leg giving out when walking on occasion and denies recently trauma. Upon previous medical record review patient has been here several times with similar complaints. Over the last several months he has had several negative CT angiogram chest, Doppler of the left leg, and had a negative stress test and echo performed in August of this year. MD Complaint: chest pain -: year(s) Onset: during rest Pain Location: substernal Pain Radiation: none Severity scale (0 -10): 3 Quality: sharp Consistency: intermittent Improves With: nothing Worsens With: nothing re: denies: nausea, vomting, diaphoresis Other Symptoms: denies: cough, fever, syncope Aspirin use within the Past 7 Days: (0) No - Related Data Previous Rx's Medication Instructions Recorded Last Taken Type Pantoprazole [Protonix] 40 mg PO QDAY #30 tablet 05/03/18 Unknown Rx oxyCODONE /ACETAMINOPHEN [Percocet 1 tab PO Q6HR PRN #10 tablet 05/03/18 Unknown Rx 5/325] Dicyclomine [Bentyl] 10 mg PO QID PRN #20 capsule 05/05/18 Unknown Rx Promethazine [Phenergan TAB] 25 mg PO Q8HR PRN #12 tab 05/05/18 Unknown Rx cephALEXin [Keflex] 500 mg PO Q6HR #20 capsule 05/05/18 Unknown Rx traMADol [Ultram] 50 mg PO Q6HR PRN #7 tablet 05/09/18 Unknown Rx Allergies Allergy/AdvReac Type Severity Reaction Status Date / Time No Known Allergies Allergy Verified 08/27/17 08:02 Heart Score - HEART Score History: Slightly suspicious EKG: Normal Age: 45-65 Risk factors: 1-2 risk factors Troponin: < normal limit HEART Score: 2 - Critical Actions Critical Actions: 0-3 pts:0.9-1.7%risk of adverse cardiac event.Candidate for discharge ED Review of Systems ROS: Stated complaint: LOWER BACK PAIN/CP Other details as noted in HPI Constitutional: denies: chills, fever Eyes: denies: eye pain, eye discharge, vision change ENT: denies: ear pain, throat pain Respiratory: denies: cough, shortness of breath, wheezing Cardiovascular: chest pain. denies: palpitations Endocrine: no symptoms reported Gastrointestinal: denies: abdominal pain, nausea, diarrhea Genitourinary: denies: urgency, dysuria Musculoskeletal: denies: back pain, joint swelling, arthralgia Skin: denies: rash, lesions Neurological: denies: headache, weakness, paresthesias Psychiatric: denies: anxiety, depression Hematological/Lymphatic: denies: easy bleeding, easy bruising ED Past Medical Hx - Past Medical History Previous Medical History?: Yes Additional medical history: chronic pain in back, neck and L knee, ETOH abuse. herniated disc - Surgical History Additional Surgical History: Left Knee. skin graft to right hand - Social History Smoking Status: Never Smoker Substance Use Type: Alcohol - Medications Home Medications: Home Medications Medication Instructions Recorded Confirmed Last Taken Type Pantoprazole [Protonix] 40 mg PO QDAY #30 tablet 05/03/18 Unknown Rx oxyCODONE /ACETAMINOPHEN [Percocet 1 tab PO Q6HR PRN #10 tablet 05/03/18 Unknown Rx 5/325] Dicyclomine [Bentyl] 10 mg PO QID PRN #20 capsule 05/05/18 Unknown Rx Promethazine [Phenergan TAB] 25 mg PO Q8HR PRN #12 tab 05/05/18 Unknown Rx cephALEXin [Keflex] 500 mg PO Q6HR #20 capsule 05/05/18 Unknown Rx traMADol [Ultram] 50 mg PO Q6HR PRN #7 tablet 05/09/18 Unknown Rx ED Physical Exam - General Limitations: No Limitations General appearance: alert, in no apparent distress - Head Head exam: Present: atraumatic, normocephalic - Eye Eye exam: Present: normal appearance. Absent: scleral icterus - ENT ENT exam: Present: mucous membranes moist - Neck Neck exam: Present: normal inspection. Absent: tenderness, meningismus - Respiratory Respiratory exam: Present: normal lung sounds bilaterally. Absent: respiratory distress - Cardiovascular Cardiovascular Exam: Present: regular rate, normal rhythm. Absent: systolic murmur, diastolic murmur, rubs, gallop - GI/Abdominal GI/Abdominal exam: Present: soft, normal bowel sounds. Absent: distended, te nderness, guarding, rebound, rigid - Rectal Rectal exam: Present: deferred - Extremities Exam Extremities exam: Present: normal inspection - Back Exam Back exam: Present: normal inspection - Neurological Exam Neurological exam: Present: alert, oriented X3, CN II-XII intact. Absent: motor sensory deficit - Psychiatric Psychiatric exam: Present: normal affect, normal mood - Skin Skin exam: Present: warm, dry, intact, normal color. Absent: rash ED Course Vital Signs 05/09/18 05/09/18 05/09/18 00:00 00:07 06:00 Temperature 79.6 F L 97.6 F 97.6 F Pulse Rate 109 H 109 H 93 H Respiratory 18 18 18 Rate Blood Pressure 136/86 136/86 Blood Pressure 125/85 [Right] O2 Sat by Pulse 98 98 99 Oximetry 05/09/18 05/09/18 05/09/18 07:54 08:04 10:16 Temperature 98.6 F Pulse Rate 107 H 96 H Respiratory 16 16 Rate Blood Pressure Blood Pressure 114/79 136/88 [Right] O2 Sat by Pulse 97 97 98 Oximetry MERT score - Mert Score Age > 65: (0) No Aspirin use within the Past 7 Days: (0) No 3 or more CAD Risk Factors: (0) No 2 or more Angina events in past 24 hrs: (0) No Known CAD with more than 50% Stenosis: (0) No Elevated Cardiac Markers: (0) No ST Deviation Greater than 0.5mm: (0) No MERT Score: 0 ED Medical Decision Making - Lab Data Result diagrams: 05/09/18 00:28 05/09/18 00:28 Laboratory Results - last 24 hr 05/09/18 05/09/18 00:28 00:28 WBC 5.0 RBC 4.70 Hgb 13.9 Hct 40.6 MCV 86 MCH 30 MCHC 34 RDW 14.7 Plt Count 152 Lymph % (Auto) 49.7 H [place] % (Auto) 11.0 H Eos % (Auto) 1.7 Baso % (Auto) 0.1 Lymph # 2.5 [place] # 0.6 Eos # 0.1 Baso # 0.0 Seg Neutrophils % 37.5 L Seg Neutrophils # 1.9 Sodium 140 Potassium 3.6 Chloride 97.3 L Carbon Dioxide 27 D Anion Gap 19 BUN 7 L Creatinine 0.8 Estimated GFR > 60 BUN/Creatinine Ratio 9 Glucose 121 H Calcium 9.1 Troponin T < 0.010 Laboratory Results - last 24 hr 05/09/18 05/09/18 05/09/18 00:28 00:28 06:05 WBC 5.0 RBC 4.70 Hgb 13.9 Hct 40.6 MCV 86 MCH 30 MCHC 34 RDW 14.7 Plt Count 152 Lymph % (Auto) 49.7 H [place] % (Auto) 11.0 H Eos % (Auto) 1.7 Baso % (Auto) 0.1 Lymph # 2.5 [place] # 0.6 Eos # 0.1 Baso # 0.0 Seg Neutrophils % 37.5 L Seg Neutrophils # 1.9 Sodium 140 Potassium 3.6 Chloride 97.3 L Carbon Dioxide 27 D Anion Gap 19 BUN 7 L Creatinine 0.8 Estimated GFR > 60 BUN/Creatinine Ratio 9 Glucose 121 H Calcium 9.1 Troponin T < 0.010 < 0.010 Laboratory Results - last 24 hr 05/09/18 05/09/18 05/09/18 00:28 00:28 06:05 WBC 5.0 RBC 4.70 Hgb 13.9 Hct 40.6 MCV 86 MCH 30 MCHC 34 RDW 14.7 Plt Count 152 Lymph % (Auto) 49.7 H [place] % (Auto) 11.0 H Eos % (Auto) 1.7 Baso % (Auto) 0.1 Lymph # 2.5 [place] # 0.6 Eos # 0.1 Baso # 0.0 Seg Neutrophils % 37.5 L Seg Neutrophils # 1.9 PT INR APTT D-Dimer Sodium 140 Potassium 3.6 Chloride 97.3 L Carbon Dioxide 27 D Anion Gap 19 BUN 7 L Creatinine 0.8 Estimated GFR > 60 BUN/Creatinine Ratio 9 Glucose 121 H Calcium 9.1 Troponin T < 0.010 < 0.010 NT-Pro-B Natriuret Pep 05/09/18 05/09/18 05/09/18 07:09 07:09 07:09 WBC RBC Hgb Hct MCV MCH MCHC RDW Plt Count Lymph % (Auto) [place] % (Auto) Eos % (Auto) Baso % (Auto) Lymph # [place] # Eos # Baso # Seg Neutrophils % Seg Neutrophils # PT 14.6 INR 1.07 APTT 25.5 D-Dimer 187.2 Sodium Potassium Chloride Carbon Dioxide Anion Gap BUN Creatinine Estimated GFR BUN/Creatinine Ratio Glucose Calcium Troponin T NT-Pro-B Natriuret Pep 16.26 05/09/18 08:29 WBC RBC Hgb Hct MCV MCH MCHC RDW Plt Count Lymph % (Auto) [place] % (Auto) Eos % (Auto) Baso % (Auto) Lymph # [place] # Eos # Baso # Seg Neutrophils % Seg Neutrophils # PT INR APTT D-Dimer Sodium Potassium Chloride Carbon Dioxide Anion Gap BUN Creatinine Estimated GFR BUN/Creatinine Ratio Glucose Calcium Troponin T < 0.010 NT-Pro-B Natriuret Pep - EKG Data -: EKG Interpreted by Me EKG shows normal: sinus rhythm, axis, intervals (NE interval of 0.21), QRS complexes, ST-T waves Rate: normal - EKG Data Interpretation: other (small R-wave in V2 first degree AV block) - Radiology Data Radiology results: report reviewed interpreted by me: Chest x-ray were chronic changes Critical care attestation.: If time is entered above; I have spent that time in minutes in the direct care of this critically ill patient, excluding procedure time. ED Disposition Clinical Impression: Atypical chest pain Disposition: DC-01 TO HOME OR SELFCARE Is pt being admited?: No Does the pt Need Aspirin: No Condition: Stable Instructions: Chest Pain (ED) Additional Instructions: Follow-up in the primary care setting. See referral. Return to the emergency department any acute change or problems. Prescriptions: traMADol [Ultram] 50 mg PO Q6HR PRN #7 tablet PRN Reason: Pain Referrals: PRIMARY CARE, [Primary Care Provider] - 3-5 Days [facility] [Provider Group] - 3-5 Days Time of Disposition: 11:22
[2018-05-09 07:41] LABS: INR 1.07 (0.87-1.13)
[2018-05-09 07:42] LABS: Partial Thromboplastin Time 25.5 Sec. (24.2-36.6)
--- NOTE | 2018-05-09 07:59 | XRay Report ---
PROCEDURE: XR CHEST 1V AP TECHNIQUE: Chest radiograph single view. HISTORY: hypertension COMPARISONS: 05/02/2018 . FINDINGS: Heart: Normal. Mediastinum/Vessels: The thoracic aorta is moderately tortuous. The lungs are congested.. Lungs/Pleural space: There are no acute infiltrates or effusions.. Bony thorax: No acute osseous abnormality. Life support devices: None. IMPRESSION: No acute cardiopulmonary abnormality. This document is electronically signed by Dany Carter MD., May 09 2018 07:03:58 AM ET
[2018-05-09] MEDS ORDERED: FOLVITE 1 MG, INFUVITE 10 ML in NACL 0.9% 1000 ML 1,000 ML IV ONE (11:30)
[2018-05-09] MEDS ORDERED: ATIVAN IV ONE (11:30)
[2018-05-09] MEDS ORDERED: BENTYL PO PRN (15:46)
[2018-05-09] MEDS ORDERED: PHENERGAN PO PRN (15:46)
--- NOTE | 2018-05-09 15:46 | History and Physical Report ---
History of Present Illness Date of examination: 05/09/18 Date of admission: 05/09/18 11:31 Chief complaint: Chest pain for 1 day. History of present illness: 57 y/o male presents with retrosternal chest pain.Patient apparently had complete workup including CTA ECHO and stress test recently which were negative. Patient apparently Alcohol free.Tremulous. Past Medical History Previous Medical History?: Yes Additional medical history: chronic pain in back, neck and L knee, ETOH abuse. herniated disc Surgical History Additional Surgical History: Left Knee. skin graft to right hand Social History Smoking Status: Never Smoker Substance Use Type: Alcohol Family History Htn Medications Home Medications: Home Medications Medication Instructions Recorded Confirmed Last Taken Type Pantoprazole [Protonix] 40 mg PO QDAY #30 tablet 05/03/18 Unknown Rx oxyCODONE /ACETAMINOPHEN [Percocet 1 tab PO Q6HR PRN #10 tablet 05/03/18 Unknown Rx 5/325] Dicyclomine [Bentyl] 10 mg PO QID PRN #20 capsule 05/05/18 Unknown Rx Promethazine [Phenergan TAB] 25 mg PO Q8HR PRN #12 tab 05/05/18 Unknown Rx cephALEXin [Keflex] 500 mg PO Q6HR #20 capsule 05/05/18 Unknown Rx traMADol [Ultram] 50 mg PO Q6HR PRN #7 tablet 05/09/18 Unknown Rx Review of Systems ROS: Stated complaint: LOWER BACK PAIN/CP Other details as noted in HPI Constitutional: denies: chills, fever Eyes: denies: eye pain, eye discharge, vision change ENT: denies: ear pain, throat pain Respiratory: denies: cough, shortness of breath, wheezing Cardiovascular: chest pain. denies: palpitations Endocrine: no symptoms reported Gastrointestinal: denies: abdominal pain, nausea, diarrhea Genitourinary: denies: urgency, dysuria Musculoskeletal: denies: back pain, joint swelling, arthralgia Skin: denies: rash, lesions Neurological: denies: headache, weakness, paresthesias Psychiatric: denies: anxiety, depression Hematological/Lymphatic: denies: easy bleeding, easy bruising Medications and Allergies Allergies Allergy/AdvReac Type Severity Reaction Status Date / Time No Known Allergies Allergy Verified 08/27/17 08:02 Home Medications Medication Instructions Recorded Confirmed Last Taken Type No Known Home Medications [No 05/10/18 05/10/18 Unknown History Reported Home Medications] Active Meds: Active Medications Thiamine HCl (Vitamin B-1) 100 mg PO QDAY KEITH Exam - Constitutional Vitals: Temp Pulse Resp BP Pulse Ox 98.6 F 105 H 18 124/95 98 05/09/18 07:54 05/09/18 12:55 05/09/18 12:55 05/09/18 12:55 05/09/18 12:55 General appearance: Present: no acute distress, well-nourished - EENT Eyes: Present: PERRL ENT: hearing intact, clear oral mucosa - Neck Neck: Present: supple, normal ROM - Respiratory Respiratory effort: normal Respiratory: bilateral: CTA - Cardiovascular Heart rate: 78 Rhythm: regular Heart Sounds: Present: S1 & S2. Absent: rub, click - Extremities Extremities: no ischemia, pulses intact, pulses symmetrical, No edema Peripheral Pulses: within normal limits - Abdominal General gastrointestinal: Present: soft, non-tender, non-distended, normal bowel sounds Male genitourinary: Present: normal - Rectal Rectal Exam: deferred - Integumentary Integumentary: Present: clear, warm, dry - Musculoskeletal Musculoskeletal: gait normal, strength equal bilaterally - Psychiatric Psychiatric: appropriate mood/affect, intact judgment & insight - Neurologic Neurologic: CNII-XII intact, moves all extremities - Allied Health Allied health notes reviewed: nursing, case management Results - Labs CBC & Chem 7: 05/09/18 00:28 05/09/18 00:28 Labs: Laboratory Last Values WBC 5.0 K/mm3 (4.5-11.0) 05/09/18 00:28 RBC 4.70 M/mm3 (3.65-5.03) 05/09/18 00:28 Hgb 13.9 gm/dl (11.8-15.2) 05/09/18 00:28 Hct 40.6 % (35.5-45.6) 05/09/18 00:28 MCV 86 fl (84-94) 05/09/18 00:28 MCH 30 pg (28-32) 05/09/18 00:28 MCHC 34 % (32-34) 05/09/18 00:28 RDW 14.7 % (13.2-15.2) 05/09/18 00:28 Plt Count 152 K/mm3 (140-440) 05/09/18 00:28 Lymph % (Auto) 49.7 % (13.4-35.0) H 05/09/18 00:28 [place] % (Auto) 11.0 % (0.0-7.3) H 05/09/18 00:28 Eos % (Auto) 1.7 % (0.0-4.3) 05/09/18 00:28 Baso % (Auto) 0.1 % (0.0-1.8) 05/09/18 00:28 Lymph # 2.5 K/mm3 (1.2-5.4) 05/09/18 00:28 [place] # 0.6 K/mm3 (0.0-0.8) 05/09/18 00:28 Eos # 0.1 K/mm3 (0.0-0.4) 05/09/18 00:28 Baso # 0.0 K/mm3 (0.0-0.1) 05/09/18 00:28 Seg Neutrophils % 37.5 % (40.0-70.0) L 05/09/18 00:28 Seg Neutrophils # 1.9 K/mm3 (1.8-7.7) 05/09/18 00:28 PT 14.6 Sec. (12.2-14.9) 05/09/18 07:09 INR 1.07 (0.87-1.13) 05/09/18 07:09 APTT 25.5 Sec. (24.2-36.6) 05/09/18 07:09 D-Dimer 187.2 ng/mlDDU (0-234) 05/09/18 07:09 Sodium 140 mmol/L (137-145) 05/09/18 00:28 Potassium 3.6 mmol/L (3.6-5.0) 05/09/18 00:28 Chloride 97.3 mmol/L (98-107) L 05/09/18 00:28 Carbon Dioxide 27 mmol/L (22-30) D 05/09/18 00:28 Anion Gap 19 mmol/L 05/09/18 00:28 BUN 7 mg/dL (9-20) L 05/09/18 00:28 Creatinine 0.8 mg/dL (0.8-1.5) 05/09/18 00:28 Estimated GFR > 60 ml/min 05/09/18 00:28 BUN/Creatinine Ratio 9 % 05/09/18 00:28 Glucose 121 mg/dL (75-100) H 05/09/18 00:28 Calcium 9.1 mg/dL (8.4-10.2) 05/09/18 00:28 Troponin T < 0.010 ng/mL (0.00-0.029) 05/09/18 08:29 NT-Pro-B Natriuret Pep 16.26 pg/mL (0-900) 05/09/18 07:09 Cardiac Enzymes 05/09/18 05/09/18 Range/Units 06:05 08:29 Troponin T < 0.010 < 0.010 (0.00-0.029) ng/mL - Imaging and Cardiology EKG: report reviewed (NSR 88/min) Assessment and Plan Advance Directives: Yes (Full code) VTE prophylaxis?: Chemical Plan of care discussed with patient/family: Yes - Patient Problems (1) Chest pain Current Visit: No Status: Acute Plan to address problem: Serial Troponins Had Stress test on May 02 2018 which was negative and normal EF Will discharge if troponins are negative. (2) Alcohol withdrawal Current Visit: Yes Status: Acute Qualifiers: Complication of substance-induced condition: uncomplicated Qualified Code(s): F10.230 - Alcohol dependence with withdrawal, uncomplicated Plan to address problem: [facility] protocol initiated Mild withdrawal synmptoms (3) DVT prophylaxis Current Visit: Yes Status: Acute Plan to address problem: On Lovenox and Gi prophylaxis
[2018-05-09] MEDS ORDERED: ZOFRAN IV PRN (15:47)
[2018-05-09] MEDS ORDERED: TYLENOL PO PRN (15:47)
[2018-05-09] MEDS ORDERED: SODIUM CHLORIDE FLUSH SYRINGE 10 ML IV PRN (15:47)
[2018-05-09] MEDS ORDERED: DILAUDID IV PRN (15:48)
[2018-05-09] MEDS ORDERED: NACL 0.9% 1000 ML 1,000 ML IV SCH (16:00)
[2018-05-09] MEDS: SODIUM CHLORIDE FLUSH SYRINGE 10 ML IV SCH ×2 (17:22→23:58)
[2018-05-09] MEDS: KEFLEX PO SCH ×2 (17:22→23:58)
[2018-05-10] MEDS ORDERED: SODIUM CHLORIDE FLUSH SYRINGE 10 ML IV PRN (00:03)
[2018-05-10] MEDS ORDERED: ZOFRAN IV PRN (00:03)
[2018-05-10] MEDS ORDERED: TYLENOL PO PRN (00:03)
[2018-05-10] MEDS: PEPCID PO SCH ×3 (02:06→21:16)
[2018-05-10] MEDS: KEFLEX PO SCH ×3 (05:13→18:07)
[2018-05-10 06:41] LABS: Basophils % (Auto) 0.1 % (0.0-1.8); Eosinophils # (Auto) 0.1 K/mm3 (0.0-0.4); Hemoglobin 13.3 gm/dl (11.8-15.2); Lymphocytes # (Auto) 1.4 K/mm3 (1.2-5.4); Lymphocytes % (Auto) 35.4 % (13.4-35.0); Mean Corpuscular HGB Conc 33 % (32-34); Mean Corpuscular Volume 88 fl (84-94); Monocytes # (Auto) 0.5 K/mm3 (0.0-0.8); Monocytes % (Auto) 11.6 % (0.0-7.3); Platelet Count 124 K/mm3 (140-440); Red Blood Count 4.56 M/mm3 (3.65-5.03); Red Cell Distribution Width 14.8 % (13.2-15.2)
[2018-05-10 07:04] LABS: Alanine Aminotransferase 12 units/L (7-56); BUN/Creatinine Ratio 16; Blood Urea Nitrogen 11 mg/dL (9-20); Calcium 8.4 mg/dL (8.4-10.2); Hemolysis Index 7
[2018-05-10] MEDS ORDERED: SODIUM CHLORIDE FLUSH SYRINGE 10 ML IV SCH (10:00)
[2018-05-10] MEDS ORDERED: PROTONIX PO SCH (10:00)
[2018-05-10] MEDS: VITAMIN B-1 PO SCH ×2 (10:32→11:37)
--- NOTE | 2018-05-10 10:38 | Progress Note ---
Assessment and Plan Assessment and plan: Patient is a 57 yo man with a history of alcohol abuse and chronic pain syndrome who presented to [facility] ED with chest pains. He just had a cardiac work up including negative stress test. He was admitted for possible early alcohol withdrawals. -Chest pain, recurrent: consult Cardiology -Alcohol withdrawal: treat with CIWA protocol History Interval history: Patient was seen and examined. Follow-up on current diagnosis chest pains that is still present, intermittent. Overnight uneventful. Patient denies any sh ortness breath, nausea/vomiting or severe headaches. Imaging, nursing note, chart, labs and old chart reviewed. Discussed with patient. Hospitalist Physical - Physical exam Narrative exam: Gen: WDWN, NAD, Awake, Alert, Orientated HEENT: NCAT, EOMI, PERRL, OP Clear Neck: supple, no adenopathy, no thyromegaly, no JVD CVS/Heart: RRR, normal S1S2, pulses present bilaterally Chest/Lungs: CTA B, Symmetrical chest expansion, good air entry bilaterally, reproducible sternal cw tenderness GI/Abdomen: soft, NTND, good bowel sounds, no guarding or rebound /Bladder: no suprapubic tenderness, no CVA or paraspinal tenderness Extermity/Skin: no c/c/e, no obvious rash MSK: FROM x 4 Neuro: CN 2-12 grossly intact, no new focal deficits Psych: calm - Constitutional Vitals: Temp Pulse Resp BP Pulse Ox 97.4 F L 81 18 116/79 98 05/10/18 07:23 05/10/18 03:42 05/10/18 07:23 05/10/18 07:23 05/10/18 03:42 General appearance: Present: no acute distress, well-nourished Results - Labs CBC & Chem 7: 05/10/18 05:57 05/10/18 05:57 Labs: Laboratory Last Values WBC 4.0 K/mm3 (4.5-11.0) L 05/10/18 05:57 RBC 4.56 M/mm3 (3.65-5.03) 05/10/18 05:57 Hgb 13.3 gm/dl (11.8-15.2) 05/10/18 05:57 Hct 40.0 % (35.5-45.6) 05/10/18 05:57 MCV 88 fl (84-94) 05/10/18 05:57 MCH 29 pg (28-32) 05/10/18 05:57 MCHC 33 % (32-34) 05/10/18 05:57 RDW 14.8 % (13.2-15.2) 05/10/18 05:57 Plt Count 124 K/mm3 (140-440) L 05/10/18 05:57 Lymph % (Auto) 35.4 % (13.4-35.0) H 05/10/18 05:57 [place] % (Auto) 11.6 % (0.0-7.3) H 05/10/18 05:57 Eos % (Auto) 2.0 % (0.0-4.3) 05/10/18 05:57 Baso % (Auto) 0.1 % (0.0-1.8) 05/10/18 05:57 Lymph # 1.4 K/mm3 (1.2-5.4) 05/10/18 05:57 [place] # 0.5 K/mm3 (0.0-0.8) 05/10/18 05:57 Eos # 0.1 K/mm3 (0.0-0.4) 05/10/18 05:57 Baso # 0.0 K/mm3 (0.0-0.1) 05/10/18 05:57 Seg Neutrophils % 50.9 % (40.0-70.0) 05/10/18 05:57 Seg Neutrophils # 2.1 K/mm3 (1.8-7.7) 05/10/18 05:57 PT 14.6 Sec. (12.2-14.9) 05/09/18 07:09 INR 1.07 (0.87-1.13) 05/09/18 07:09 APTT 25.5 Sec. (24.2-36.6) 05/09/18 07:09 D-Dimer 187.2 ng/mlDDU (0-234) 05/09/18 07:09 Sodium 136 mmol/L (137-145) L 05/10/18 05:57 Potassium 3.6 mmol/L (3.6-5.0) 05/10/18 05:57 Chloride 96.8 mmol/L (98-107) L 05/10/18 05:57 Carbon Dioxide 25 mmol/L (22-30) 05/10/18 05:57 Anion Gap 18 mmol/L 05/10/18 05:57 BUN 11 mg/dL (9-20) 05/10/18 05:57 Creatinine 0.7 mg/dL (0.8-1.5) L 05/10/18 05:57 Estimated GFR > 60 ml/min 05/10/18 05:57 BUN/Creatinine Ratio 16 % 05/10/18 05:57 Glucose 95 mg/dL (75-100) 05/10/18 05:57 Hemoglobin A1c 5.5 % (4-6) 05/09/18 16:01 Calcium 8.4 mg/dL (8.4-10.2) 05/10/18 05:57 Total Bilirubin 0.80 mg/dL (0.1-1.2) 05/10/18 05:57 AST 19 units/L (5-40) 05/10/18 05:57 ALT 12 units/L (7-56) 05/10/18 05:57 Alkaline Phosphatase 78 units/L (35-129) 05/10/18 05:57 Troponin T < 0.010 ng/mL (0.00-0.029) 05/09/18 08:29 NT-Pro-B Natriuret Pep 16.26 pg/mL (0-900) 05/09/18 07:09 Total Protein 6.5 g/dL (6.3-8.2) 05/10/18 05:57 Albumin 4.0 g/dL (3.9-5) 05/10/18 05:57 Albumin/Globulin Ratio 1.6 % 05/10/18 05:57
--- NOTE | 2018-05-10 11:25 | Event Note ---
Date: 05/10/18 Cardiology note dictated. #1 chest pain #2 degenerative joint disease #3 history of alcohol abuse. Patient will be monitored and followed along with you. Patient is scheduled for a stress thallium test. This will be reviewed. Thank you Dr. Sevilla for allowing me to participate in the care of this gentleman Dr. PRASHANTH Jonhson
[2018-05-10] MEDS: SODIUM CHLORIDE FLUSH SYRINGE 10 ML IV SCH ×2 (11:37→21:17)
[2018-05-10] MEDS ORDERED: PNEUMOVAX 23 IM ONE (12:00)
[2018-05-10] MEDS: PERCOCET 5/325 PO PRN (21:15)
--- NOTE | 2018-05-10 22:41 | Consultation ---
HISTORY OF PRESENT ILLNESS: The patient is a 57-year-old gentleman who has been having chest pain for the last one month. These pains are intermittent and not always related to any activity. He describes the pain as sharp pains, sometimes radiating to the back. The patient is a nonsmoker. He denies history of hypertension or diabetes and he may have hyperlipidemia, but he is not sure about the same. Known to have had significant degenerative joint disease in the past including chronic back pain, neck pain, and knee joint problems. Apparently, he had a herniated disk in the lumbosacral region, which limits his activities. FAMILY HISTORY: Negative for significant coronary artery disease. REVIEW OF SYSTEMS: HEAD, EYES, EARS, NOSE AND THROAT: No symptoms. ENDOCRINE: No history of diabetes or thyroid problems. GASTROINTESTINAL: No abdominal pain, nausea, vomiting. Bowel habits have been regular. GENITOURINARY: No symptoms. MUSCULOSKELETAL: As mentioned earlier, he had significant degenerative joint disease and back pain as well as knee pain. HEME/ONC: No symptoms. CENTRAL NERVOUS SYSTEM: No history of cerebrovascular accident or convulsive disorder. PHYSICAL EXAMINATION: GENERAL: Adult male, well nourished, in no distress. VITAL SIGNS: Pulse 82, blood pressure 116/79, respirations 18. HEENT: Unremarkable. NECK: Supple. No thyromegaly. Both carotids are palpable and equal. Neck veins are flat. CHEST: Symmetrical. LUNGS: Essentially clear. CARDIOVASCULAR: S1 and S2 are heard. ABDOMEN: Soft, nontender, nondistended. EXTREMITIES: No significant edema. Peripheral pulses are satisfactory. DIAGNOSTIC DATA: EKG, sinus rhythm, no acute abnormalities are present. LABORATORY DATA: WBC 4, hemoglobin 13.3, hematocrit 40. Sodium 136, potassium 3.6, BUN 11, creatinine 0.7. Liver function studies are normal. Troponin x 3 negative. BNP normal. RADIOLOGICAL DATA: Chest x-ray, no acute abnormalities noted. IMPRESSION: 1. Chest pain, etiology uncertain. 2. Degenerative joint disease. The patient is seen for cardiac evaluation. Clinically, cardiac status appears to be stable. The patient is scheduled to have a stress test. This will be reviewed once it is done. The patient will be followed along with you. Thank you, Dr. Lavern Sevilla, for allowing me to participate in the care of this pleasant gentleman. JOB# [id number] REINA/GRETCHEN
[2018-05-11] MEDS: KEFLEX PO SCH ×4 (00:17→17:19)
[2018-05-11] MEDS: PEPCID PO SCH (09:25)
[2018-05-11] MEDS: PERCOCET 5/325 PO PRN (09:25)
[2018-05-11] MEDS: VITAMIN B-1 PO SCH (09:25)
[2018-05-11] MEDS: SODIUM CHLORIDE FLUSH SYRINGE 10 ML IV SCH (09:26)
--- NOTE | 2018-05-11 10:30 | Progress Note ---
Assessment and Plan Chest pain currently resolved. AMI ruled out. Pt underwent stress test 05/02/2018 which was negative. No plans for additional cardiac w/u at this time. The patient has been seen in conjunction with Dr. Parker who agrees with the assessment and plan of care. - Patient Problems (1) Atypical chest pain Current Visit: Yes Status: Resolved (2) ETOH abuse Current Visit: Yes Status: Acute (3) Degenerative joint disease Current Visit: Yes Status: Chronic Subjective Date of service: 05/11/18 Principal diagnosis: back pain, chest pain Interval history: pt resting in bed, c/o nausea and dizziness this AM, chest pain currently resol rita. Objective Last Vital Signs Temp 98.2 F 05/11/18 08:10 Pulse 86 05/11/18 10:00 Resp 18 05/11/18 10:00 BP 112/79 05/11/18 08:08 Pulse Ox 98 05/11/18 10:00 - Physical Examination General: No Apparent Distress HEENT: Positive: PERRL, Normocephaly, Mucus Membranes Moist Neck: Positive: neck supple, trachea midline Cardiac: Positive: Reg Rate and Rhythm, S1/S2 Lungs: Positive: clear to auscultation Neuro: Positive: Grossly Intact Abdomen: Positive: Soft. Negative: Tender Skin: Negative: Rash, Wound Musculoskeletal: No Pain Extremities: Absent: edema - Imaging and Cardiology EKG: report reviewed (NSR 88/min) Pharmacologic stress test: report reviewed (05/02/2018: negative for ischemia, EF 73%) Echo: report reviewed (08/2017: EF 50-55%, mild LVH)
--- NOTE | 2018-05-11 14:51 | Progress Note ---
Assessment and Plan Assessment and plan: Patient is a 57 yo man with a history of alcohol abuse and chronic pain syndrome who presented to [facility] ED with chest pains. He just had a cardiac work up including negative stress test. He was admitted for possible early alcohol withdrawals. -Chest pain, recurrent: consult Cardiology -Alcohol withdrawal: treat with CIWA protocol History Interval history: Patient was seen and examined. Follow-up on current diagnosis chest pains that is still present, intermittent. Overnight uneventful. Patient denies any sh ortness breath, nausea/vomiting or severe headaches. Imaging, nursing note, chart, labs and old chart reviewed. Discussed with patient. Hospitalist Physical - Physical exam Narrative exam: Gen: WDWN, NAD, Awake, Alert, Orientated HEENT: NCAT, EOMI, PERRL, OP Clear Neck: supple, no adenopathy, no thyromegaly, no JVD CVS/Heart: RRR, normal S1S2, pulses present bilaterally Chest/Lungs: CTA B, Symmetrical chest expansion, good air entry bilaterally, reproducible sternal cw tenderness GI/Abdomen: soft, NTND, good bowel sounds, no guarding or rebound /Bladder: no suprapubic tenderness, no CVA or paraspinal tenderness Extermity/Skin: no c/c/e, no obvious rash MSK: FROM x 4 Neuro: CN 2-12 grossly intact, no new focal deficits Psych: calm - Constitutional Vitals: Temp Pulse Resp BP Pulse Ox 98.3 F 82 18 121/76 97 05/11/18 12:16 05/11/18 12:15 05/11/18 12:15 05/11/18 12:15 05/11/18 12:15 General appearance: Present: no acute distress, well-nourished Results - Labs CBC & Chem 7: 05/10/18 05:57 05/10/18 05:57 Labs: Laboratory Last Values WBC 4.0 K/mm3 (4.5-11.0) L 05/10/18 05:57 RBC 4.56 M/mm3 (3.65-5.03) 05/10/18 05:57 Hgb 13.3 gm/dl (11.8-15.2) 05/10/18 05:57 Hct 40.0 % (35.5-45.6) 05/10/18 05:57 MCV 88 fl (84-94) 05/10/18 05:57 MCH 29 pg (28-32) 05/10/18 05:57 MCHC 33 % (32-34) 05/10/18 05:57 RDW 14.8 % (13.2-15.2) 05/10/18 05:57 Plt Count 124 K/mm3 (140-440) L 05/10/18 05:57 Lymph % (Auto) 35.4 % (13.4-35.0) H 05/10/18 05:57 [place] % (Auto) 11.6 % (0.0-7.3) H 05/10/18 05:57 Eos % (Auto) 2.0 % (0.0-4.3) 05/10/18 05:57 Baso % (Auto) 0.1 % (0.0-1.8) 05/10/18 05:57 Lymph # 1.4 K/mm3 (1.2-5.4) 05/10/18 05:57 [place] # 0.5 K/mm3 (0.0-0.8) 05/10/18 05:57 Eos # 0.1 K/mm3 (0.0-0.4) 05/10/18 05:57 Baso # 0.0 K/mm3 (0.0-0.1) 05/10/18 05:57 Seg Neutrophils % 50.9 % (40.0-70.0) 05/10/18 05:57 Seg Neutrophils # 2.1 K/mm3 (1.8-7.7) 05/10/18 05:57 PT 14.6 Sec. (12.2-14.9) 05/09/18 07:09 INR 1.07 (0.87-1.13) 05/09/18 07:09 APTT 25.5 Sec. (24.2-36.6) 05/09/18 07:09 D-Dimer 187.2 ng/mlDDU (0-234) 05/09/18 07:09 Sodium 136 mmol/L (137-145) L 05/10/18 05:57 Potassium 3.6 mmol/L (3.6-5.0) 05/10/18 05:57 Chloride 96.8 mmol/L (98-107) L 05/10/18 05:57 Carbon Dioxide 25 mmol/L (22-30) 05/10/18 05:57 Anion Gap 18 mmol/L 05/10/18 05:57 BUN 11 mg/dL (9-20) 05/10/18 05:57 Creatinine 0.7 mg/dL (0.8-1.5) L 05/10/18 05:57 Estimated GFR > 60 ml/min 05/10/18 05:57 BUN/Creatinine Ratio 16 % 05/10/18 05:57 Glucose 95 mg/dL (75-100) 05/10/18 05:57 Hemoglobin A1c 5.5 % (4-6) 05/09/18 16:01 Calcium 8.4 mg/dL (8.4-10.2) 05/10/18 05:57 Total Bilirubin 0.80 mg/dL (0.1-1.2) 05/10/18 05:57 AST 19 units/L (5-40) 05/10/18 05:57 ALT 12 units/L (7-56) 05/10/18 05:57 Alkaline Phosphatase 78 units/L (35-129) 05/10/18 05:57 Troponin T < 0.010 ng/mL (0.00-0.029) 05/09/18 08:29 NT-Pro-B Natriuret Pep 16.26 pg/mL (0-900) 05/09/18 07:09 Total Protein 6.5 g/dL (6.3-8.2) 05/10/18 05:57 Albumin 4.0 g/dL (3.9-5) 05/10/18 05:57 Albumin/Globulin Ratio 1.6 % 05/10/18 05:57
--- NOTE | 2018-05-11 14:54 | Discharge Summary ---
Providers - Providers Date of Admission: 05/09/18 11:31 Date of discharge: 05/11/18 Attending physician: TERRENCE BRAND 05/10/18 07:53 Consult to Physician [CONS] Routine Comment: Consulting Provider: ZAIN FERNANDEZ Physician Instructions: Reason For Exam: recurrent CP Primary care physician: [employer] Hospitalization Condition: Stable Hospital course: Patient is a 57 yo man with a history of alcohol abuse and chronic pain syndrome who presented to [facility] ED with chest pains. He just had a cardiac work up including negative stress test. He was admitted for possible early alcohol withdrawals. -Chest pain, recurrent: consult Cardiology -Alcohol withdrawal: treat with CIWA protocol Disposition: DC-01 TO HOME OR SELFCARE Time spent for discharge: 36 minutes Core Measure Documentation - Palliative Care Palliative Care/ Comfort Measures: Not Applicable - Core Measures Any of the following diagnoses?: none - VTE Discharge Requirements Deep Vein Thrombosis/Pulmonary Embolism Present on Admission: No Has pt received <5 days of overlap therapy or INR<2.0: No Anticoagulant overlap therapy prescribed at discharge: No Contraindication No Overlap Therapy order at DC: Not Indicated Exam - Physical Exam Narrative exam: Gen: WDWN, NAD, Awake, Alert, Orientated HEENT: NCAT, EOMI, PERRL, OP Clear Neck: supple, no adenopathy, no thyromegaly, no JVD CVS/Heart: RRR, normal S1S2, pulses present bilaterally Chest/Lungs: CTA B, Symmetrical chest expansion, good air entry bilaterally, reproducible sternal cw tenderness GI/Abdomen: soft, NTND, good bowel sounds, no guarding or rebound /Bladder: no suprapubic tenderness, no CVA or paraspinal tenderness Extermity/Skin: no c/c/e, no obvious rash MSK: FROM x 4 Neuro: CN 2-12 grossly intact, no new focal deficits Psych: calm - Constitutional Vitals: Temp Pulse Resp BP Pulse Ox 98.3 F 82 18 121/76 97 05/11/18 12:16 05/11/18 12:15 05/11/18 12:15 05/11/18 12:15 05/11/18 12:15 Plan Activity: other (no strenous activity) Diet: low salt Follow up with: [facility] [Provider Group] - 3-5 Days PRIMARY [facility]ARE, [Primary Care Provider] - 3-5 Days ZAIN FERNANDEZ MD [Staff Physician] - 7 Days Prescriptions: oxyCODONE /ACETAMINOPHEN [Percocet 5/325 mg] 1 tab PO Q6HR PRN #10 tablet PRN Reason: Pain , Severe (7-10)
[2018-05-11 17:21] VITALS: BP 127/80
== END 2018-05-11 19:19 | disposition home or self-care (01) | DRG 313 ==
LOC: ED 23:54 → 4A 05-09 11:31
PROVIDERS: ADMIT Internal Medicine; ATTEND Internal Medicine
PROC: 3E0234Z Introduction of Serum, Toxoid and Vaccine into Muscle, Percutaneous Approach (ICD-10-PCS; principal; 2018-05-10)
DX: R07.89 Other chest pain (principal); G89.4 Chronic pain syndrome; M19.90 Unspecified osteoarthritis, unspecified site; F10.129 Alcohol abuse with intoxication, unspecified; Z23 Encounter for immunization
CPT/HCPCS: 36415; 71045; 80048; 80053; 83036; 83880; 84484; 85025; 85379; 85610; 85730; 90732; 93005; 93010; 96374; 96375; G0378; J1170; J2060; J3411; J7030

== ENCOUNTER 2018-05-11 23:08 | Emergency (ER) | payer SELFPAY ==
[2018-05-11 23:15] VITALS: BP 117/69
--- NOTE | 2018-05-12 00:39 | XRay Report ---
PROCEDURE: XR CHEST ROUTINE 2V TECHNIQUE: PA and lateral views of the chest were cement. HISTORY: Chest pain with cough COMPARISONS: 05/09/2018 FINDINGS: The heart size and vascularity appear normal. There are no infiltrates or effusions. The skeletal str uctures do not show any acute changes. IMPRESSION: No acute cardiopulmonary process.. This document is electronically signed by Dany Carter MD., May 12 2018 12:36:44 AM ET
--- NOTE | 2018-05-12 01:38 | Emergency Department Report ---
ED General Adult HPI - General Chief complaint: Chest Pain Stated complaint: CHEST PAIN Source: patient Mode of arrival: Ambulatory Limitations: No Limitations - History of Present Illness Initial comments: 57-year-old -[place] male with a past medical history of chronic EtOH abuse, chronic back pain, muscular pain and recurrent chest pain. Return to emergency department tonight complaining of a reemergence of chest pain after being discharged from the hospital on 05/11/2018 and having extensive workup with cardiology for chest pain as well. Mr. Lemus has had multiple visits for chest pain this year and a couple admissions as well. He had an admission in 05/02/2018 when he underwent exercise stress test which was normal and also had an echo done with EF of systems a 73%. On this most recent admission, he was again evaluated by cardiology who stated found no no no evidence of an acute coronary syndrome evolution. He was advised to take Protonix as well as some pain medications. On both of his visit, however, has not yet follow the prescribed education regimen. Currently states his pain is dull and and an aching associated with a cough and white mucus. She reports occasional fever as well. There is no hemoptysis, no hematemesis, no hematochezia. Continue denies trauma Location: chest Radiation: non-radiation Severity scale (0 -10): 8 Quality: stabbing Consistency: constant Improves with: none Worsens with: none Associated Symptoms: cough. denies: chest pain, diaphoresis, loss of appetite, malaise, shortness of breath, syncope, weakness - Related Data Previous Rx's Medication Instructions Recorded Last Taken Type Acetaminophen [Acetaminophen TAB] 325 mg PO Q4H PRN #10 tablet 05/11/18 Unknown Rx Thiamine [Vitamin B-1] 100 mg PO QDAY #30 tablet 05/11/18 Unknown Rx oxyCODONE /ACETAMINOPHEN [Percocet 1 tab PO Q6HR PRN #10 tablet 05/11/18 Unknown Rx 5/325 mg] Benzonatate [Tessalon Perles] 100 mg PO Q8HR #20 capsule 05/12/18 Unknown Rx Ketorolac [Toradol] 10 mg PO Q6H PRN #14 tablet 05/12/18 Unknown Rx Allergies Allergy/AdvReac Type Severity Reaction Status Date / Time No Known Allergies Allergy Verified 08/27/17 08:02 ED Review of Systems ROS: Stated complaint: CHEST PAIN Other details as noted in HPI Constitutional: denies: chills, fever Eyes: denies: eye pain, eye discharge, vision change ENT: denies: ear pain, throat pain Respiratory: denies: cough, shortness of breath, wheezing Cardiovascular: chest pain. denies: palpitations Endocrine: no symptoms reported Gastrointestinal: denies: abdominal pain, nausea, diarrhea Genitourinary: denies: urgency, dysuria Musculoskeletal: denies: back pain, joint swelling, arthralgia Skin: denies: rash, lesions Neurological: denies: headache, weakness, paresthesias Psychiatric: denies: anxiety, depression Hematological/Lymphatic: denies: easy bleeding, easy bruising ED Past Medical Hx - Past Medical History Previous Medical History?: Yes Hx HIV: No Additional medical history: chronic pain in back, neck and L knee, ETOH abuse. herniated disc - Surgical History Past Surgical History?: Yes Additional Surgical History: Left Knee. skin graft to right hand - Social History Smoking Status: Never Smoker - Medications Home Medications: Home Medications Medication Instructions Recorded Confirmed Last Taken Type Acetaminophen [Acetaminophen TAB] 325 mg PO Q4H PRN #10 tablet 05/11/18 Unknown Rx Thiamine [Vitamin B-1] 100 mg PO QDAY #30 tablet 05/11/18 Unknown Rx oxyCODONE /ACETAMINOPHEN [Percocet 1 tab PO Q6HR PRN #10 tablet 05/11/18 Unknown Rx 5/325 mg] Benzonatate [Tessalon Perles] 100 mg PO Q8HR #20 capsule 05/12/18 Unknown Rx Ketorolac [Toradol] 10 mg PO Q6H PRN #14 tablet 05/12/18 Unknown Rx ED Physical Exam - General Limitations: No Limitations General appearance: alert, in no apparent distress - Head Head exam: Present: atraumatic, normocephalic - Eye Eye exam: Present: normal appearance - ENT ENT exam: Present: mucous membranes moist - Neck Neck exam: Present: normal inspection - Respiratory Respiratory exam: Present: normal lung sounds bilaterally, chest wall tenderness (pain to the sternal sternal border with palpation and to the sternal border with palpation). Absent: respiratory distress - Cardiovascular Cardiovascular Exam: Present: regular rate, normal rhythm. Absent: systolic murmur, diastolic murmur, rubs, gallop - GI/Abdominal GI/Abdominal exam: Present: soft, normal bowel sounds - Rectal Rectal exam: Present: deferred - Extremities Exam Extremities exam: Present: normal inspection - Back Exam Back exam: Present: normal inspection - Neurological Exam Neurological exam: Present: alert, oriented X3 - Psychiatric Psychiatric exam: Present: normal affect, normal mood - Skin Skin exam: Present: warm, dry, intact, normal color. Absent: rash ED Course Vital Signs 05/11/18 23:14 Temperature 97.6 F Pulse Rate 107 H Respiratory 18 Rate Blood Pressure 117/69 O2 Sat by Pulse 99 Oximetry ED Medical Decision Making - Medical Decision Making Mr. Lemus has had multiple visits to the ED, some resulting in admission and having extensive cardiovascular workup, which has all yielded negative results for any acute coronary syndrome process. Also has had a negative d-dimer 2 days ago as well. He is reporting some coughing and congestion and bronchial cyst symptoms. She states coughing spell sometimes results and to him feeling a little lightheaded. There has been no hemoptysis and no trauma. No syncope. Today attaches stressed the importance of compliance and follow-up with. There is some questionable reluctance. I encouraged him to fill his Protonix and the pain prescription, which were provided. I will give him some anti-inflammatory for this tactile pain and something to help the cough as well as in light Tessalon Perles and encourage him to follow-up with primary care provider Critical care attestation.: If time is entered above; I have spent that time in minutes in the direct care of this critically ill patient, excluding procedure time. ED Disposition Clinical Impression: Chest pain, Cough Disposition: DC-01 TO HOME OR SELFCARE Is pt being admited?: No Does the pt Need Aspirin: No Condition: Stable Instructions: Chest Pain (ED), Cold Symptoms (ED), Chronic Cough (ED) Additional Instructions: Please going have your Protonix, and your Percocet filled as recommended by a resource director in hospitalists on this most recent hospital visit one day ago Prescriptions: Benzonatate [Tessalon Perles] 100 mg PO Q8HR #20 capsule Ketorolac [Toradol] 10 mg PO Q6H PRN #14 tablet PRN Reason: Pain Referrals: DOMONIQUE JUAREZ MD [Primary Care Provider] - 3-5 Days
== END 2018-05-12 01:48 | disposition home or self-care (01) ==
LOC: ED 23:08
DX: R07.89 Other chest pain (principal); R05 Cough; R50.9 Fever, unspecified; M54.89 Other dorsalgia; G89.29 Other chronic pain
CPT/HCPCS: 71046; 93005; 93010; 99283

== ENCOUNTER 2018-05-14 22:56 | Emergency (ER) | payer SELFPAY ==
--- NOTE | 2018-05-15 01:29 | Emergency Department Report ---
ED Neck Pain HPI Chief Complaint: Neck Pain/Injury Stated Complaint: NECK/HEAD PAIN Time Seen by Provider: 05/15/18 00:55 Duration: 3-4 months Neck Pain Location: Paraspinal Severity: mild Mechanism: Twist Symptoms: Yes Pain with Movement, Yes Previous History, No Radiation to Left Upper Ext, No Radiation to Right Upper Ext, No Numbness, No Weakness Other History: Pt is a 57 yo male who presents to the ED with c/o left sided neck pain that began 3-4 months ago. The patient states that movements of the neck makes his pain worse. The patient denies any injury or fall. The patient denies any numbness, weakness, radiation of the pain. Pt is able to move all extremities without difficulty. Pt has had many ER visits for varying aches/pains with normal workup. ED Review of Systems ROS: Stated complaint: NECK/HEAD PAIN Other details as noted in HPI Comment: All other systems reviewed and negative ED Past Medical Hx - Past Medical History Previous Medical History?: Yes Hx HIV: No Additional medical history: chronic pain in back, neck and L knee, ETOH abuse. herniated disc - Surgical History Past Surgical History?: Yes Additional Surgical History: Left Knee. skin graft to right hand - Social History Smoking Status: Never Smoker Substance Use Type: Alcohol - Medications Home Medications: Home Medications Medication Instructions Recorded Confirmed Last Taken Type Thiamine [Vitamin B-1] 100 mg PO QDAY #30 tablet 05/11/18 Unknown Rx oxyCODONE /ACETAMINOPHEN [Percocet 1 tab PO Q6HR PRN #10 tablet 05/11/18 Unknown Rx 5/325 mg] Benzonatate [Tessalon Perles] 100 mg PO Q8HR #20 capsule 05/12/18 Unknown Rx Ketorolac [Toradol] 10 mg PO Q6H PRN #14 tablet 05/12/18 Unknown Rx Naproxen 250 mg PO Q6HR #20 tablet 05/15/18 Unknown Rx Neck Pain Exam - Exam General: Vital signs noted. No distress. Alert and acting appropriately. HEENT: No Facial Pain, No Scalp Tenderness, No Contusion, No Abrasion, No Laceration Neck Pain: Yes Left Paraspinal Tenderness, No Midline Tenderness, No Right Paraspinal Tenderness, No Right Trapezius Tenderness, No Left Trapezius Tenderness, No Pain with Rotation Right, No Pain with Rotation Left, No Pain with Extension, No Pain with Flexion, No pain with R Lateral Flexion, No Pain with L Lateral Flexion Chest: Yes Clear Lung Sounds, No Pain with Respirations Heart: Yes Regular, No Murmur Back: No Thoracic Tenderness, No Lumbar Tenderness Neuro: Yes Normal Reflexes, No Numbness, No Weakness, No Radicular Deficits Exam: Pt has FROM in both UE and LE. No focal neuro deficits. Pt has FROM of the neck. 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 On exam pt has right sided paraspinal muscular TTP of the C-spine, no midline tenderness, NEXUS criteria negative, he has had no fall or injury, he has FROM of the C-spine, no focal neuro deficits, able to move all extremities. No imaging necessary. Advised pt to follow up with his primary care doctor in the next 2-3 days. Discussed with patient alcohol cessation. Critical care attestation.: If time is entered above; I have spent that time in minutes in the direct care of this critically ill patient, excluding procedure time. ED Disposition Clinical Impression: Muscle strain Disposition: DC-01 TO HOME OR SELFCARE Is pt being admited?: No Does the pt Need Aspirin: No Condition: Stable Instructions: Muscle Strain (ED) Additional Instructions: Follow up with primary care doctor in the next 2-3 days. Prescriptions: Naproxen 250 mg PO Q6HR #20 tablet Referrals: MATHEW REAVES MD [Primary Care Provider] - 3-5 Days Time of Disposition: 01:36 Print Language: KAZAKH
[2018-05-15 01:47] VITALS: BP 103/68
== END 2018-05-15 01:48 | disposition home or self-care (01) ==
LOC: ED 22:56
DX: S16.1XXA Strain of muscle, fascia and tendon at neck level, initial encounter (principal); G89.29 Other chronic pain; X58.XXXA Exposure to other specified factors, initial encounter; Y93.89 Activity, other specified; Y92.89 Other specified places as the place of occurrence of the external cause; Y99.8 Other external cause status

== ENCOUNTER 2018-09-13 00:49 | Emergency (ER) | payer OTHER ==
--- NOTE | 2018-09-13 01:45 | XRay Report ---
CHEST 1 VIEW INDICATION: Chest Pain. COMPARISON: None. FINDINGS: Support devices: None. Heart: Normal. Lungs/Pleura: No acute pulmonary or pleural findings. IMPRESSION: 1. No acute findings. Signer Name: Yogi Rouse MD Signed: 09/13/2018 1:40 AM Workstation Name: [id number]
[2018-09-13 02:26] LABS: Hematocrit 40.8 % (35.5-45.6); Hemoglobin 13.8 gm/dl (11.8-15.2); Mean Corpuscular HGB Conc 34 % (32-34); Mean Corpuscular Volume 90 fl (84-94); Platelet Count 143 K/mm3 (140-440); Red Blood Count 4.55 M/mm3 (3.65-5.03); Red Cell Distribution Width 13.6 % (13.2-15.2)
[2018-09-13 02:48] LABS: BUN/Creatinine Ratio 8; Blood Urea Nitrogen 10 mg/dL (9-20); Calcium 8.7 mg/dL (8.4-10.2); Hemolysis Index 3
[2018-09-13 03:16] LABS: RBC Morphology Normal; Total Cells Counted 100
--- NOTE | 2018-09-13 06:22 | Emergency Department Report ---
ED Chest Pain HPI - General Chief Complaint: Chest Pain Stated Complaint: CHEST PAIN Time Seen by Provider: 09/13/18 06:19 Source: patient Mode of arrival: Ambulatory Limitations: No Limitations - History of Present Illness Initial Comments: This is a 57-year-old man who may be homeless. He does not admit his alcohol abuse. He states that he has not been told he has liver disease. Both of these findings are highly likely notwithstanding. The first thing he requests is admission to the hospital. He states that he needs to be admitted to the [facility] for chest pain. However he is not complaining of chest pain at the time of my encounter. He denied shortness of breath. He said no recent travel, leg pain or swelling. He was recently admitted and worked up 05/2018, Cardiology note: Chest pain currently resolved. AMI ruled out. Pt underwent stress test 05/02/2018 which was negative. No plans for additional cardiac w/u at this time. The patient has been seen in conjunction with Dr. Parker who agrees with the assessment and plan of care. - Patient Problems (1) Atypical chest pain Current Visit: Yes Status: Resolved (2) ETOH abuse Current Visit: Yes Status: Acute (3) Degenerative joint disease Current Visit: Yes Status: Chronic MD Complaint: chest pain -: month(s) Onset: during rest Pain Location: substernal Pain Radiation: none Severity: mild, moderate Severity scale (0 -10): 6 Quality: aching Consistency: intermittent, now resolved Improves With: nothing Worsens With: nothing re: denies: nausea, vomting, diaphoresis, dyspnea, sense of impending doom Other Symptoms: denies: cough, fever, syncope Treatments Prior to Arrival: none Aspirin use within the Past 7 Days: (0) No - Related Data Previous Rx's Medication Instructions Recorded Last Taken Type Thiamine [Vitamin B-1] 100 mg PO QDAY #30 tablet 05/11/18 Unknown Rx oxyCODONE /ACETAMINOPHEN [Percocet 1 tab PO Q6HR PRN #10 tablet 05/11/18 Unknown Rx 5/325 mg] Benzonatate [Tessalon Perles] 100 mg PO Q8HR #20 capsule 05/12/18 Unknown Rx Ketorolac [Toradol] 10 mg PO Q6H PRN #14 tablet 05/12/18 Unknown Rx Naproxen 250 mg PO Q6HR #20 tablet 05/15/18 Unknown Rx Allergies Allergy/AdvReac Type Severity Reaction Status Date / Time No Known Allergies Allergy Verified 08/27/17 08:02 Heart Score - HEART Score History: Slightly suspicious EKG: Normal Age: 45-65 Risk factors: 1-2 risk factors Troponin: < normal limit HEART Score: 2 - Critical Actions Critical Actions: 0-3 pts:0.9-1.7%risk of adverse cardiac event.Candidate for discharge ED Review of Systems ROS: Stated complaint: CHEST PAIN Other details as noted in HPI Constitutional: denies: chills, fever Eyes: denies: eye pain, eye discharge, vision change ENT: denies: ear pain, throat pain Respiratory: denies: cough, shortness of breath, wheezing Cardiovascular: chest pain. denies: palpitations Endocrine: no symptoms reported Gastrointestinal: denies: abdominal pain, nausea, diarrhea Genitourinary: denies: urgency, dysuria Musculoskeletal: denies: back pain, joint swelling, arthralgia Skin: denies: rash, lesions Neurological: denies: headache, weakness, paresthesias Psychiatric: denies: anxiety, depression Hematological/Lymphatic: denies: easy bleeding, easy bruising ED Past Medical Hx - Past Medical History Previous Medical History?: Yes Hx HIV: No Additional medical history: chronic pain in back, neck and L knee, ETOH abuse. herniated disc - Surgical History Past Surgical History?: Yes Additional Surgical History: Left Knee. skin graft to right hand - Social History Smoking Status: Former Smoker Substance Use Type: Alcohol - Medications Home Medications: Home Medications Medication Instructions Recorded Confirmed Last Taken Type Thiamine [Vitamin B-1] 100 mg PO QDAY #30 tablet 05/11/18 Unknown Rx oxyCODONE /ACETAMINOPHEN [Percocet 1 tab PO Q6HR PRN #10 tablet 05/11/18 Unknown Rx 5/325 mg] Benzonatate [Tessalon Perles] 100 mg PO Q8HR #20 capsule 05/12/18 Unknown Rx Ketorolac [Toradol] 10 mg PO Q6H PRN #14 tablet 05/12/18 Unknown Rx Naproxen 250 mg PO Q6HR #20 tablet 05/15/18 Unknown Rx ED Physical Exam - General Limitations: No Limitations General appearance: alert, in no apparent distress - Head Head exam: Present: atraumatic, normocephalic - Eye Eye exam: Present: normal appearance - ENT ENT exam: Present: mucous membranes moist - Neck Neck exam: Present: normal inspection - Respiratory Respiratory exam: Present: normal lung sounds bilaterally. Absent: respiratory distress - Cardiovascular Cardiovascular Exam: Present: regular rate, normal rhythm. Absent: systolic murmur, diastolic murmur, rubs, gallop - GI/Abdominal GI/Abdominal exam: Present: soft, normal bowel sounds, other (I couldn't totally exclude the presence of ascites. Healed celiotomy scar.). Absent: distended, tenderness, guarding, rebound, rigid - Rectal Rectal exam: Present: deferred - Extremities Exam Extremities exam: Present: normal inspection. Absent: pedal edema, joint swelling, calf tenderness - Back Exam Back exam: Present: normal inspection - Neurological Exam Neurological exam: Present: alert, oriented X3, CN II-XII intact. Absent: motor sensory deficit - Psychiatric Psychiatric exam: Present: normal mood, flat affect, other (inebriated) - Skin Skin exam: Present: warm, dry, intact, normal color. Absent: rash ED Course Vital Signs 09/13/18 09/13/18 09/13/18 01:01 04:45 05:30 Temperature 98.1 F Pulse Rate 102 H 102 H 73 Respiratory 18 15 16 Rate Blood Pressure 101/68 Blood Pressure 137/99 106/60 [Right] O2 Sat by Pulse 93 94 93 Oximetry 09/13/18 09/13/18 09/13/18 05:50 07:01 07:15 Temperature Pulse Rate 57 L 85 Respiratory 18 18 18 Rate Blood Pressure 102/75 99/81 Blood Pressure [Right] O2 Sat by Pulse 89 93 92 Oximetry 09/13/18 09/13/18 09/13/18 07:30 07:45 08:00 Temperature Pulse Rate 62 74 96 H Respiratory 17 16 20 Rate Blood Pressure 114/86 113/77 119/80 Blood Pressure [Right] O2 Sat by Pulse 94 96 92 Oximetry 09/13/18 09/13/18 09/13/18 08:15 08:30 08:45 Temperature Pulse Rate 96 H 110 H 95 H Respiratory 16 17 15 Rate Blood Pressure 110/85 117/78 115/86 Blood Pressure [Right] O2 Sat by Pulse 93 Oximetry 09/13/18 09/13/18 09/13/18 09:00 09:15 09:30 Temperature Pulse Rate 101 H Respiratory 21 Rate Blood Pressure 126/96 114/73 127/79 Blood Pressure [Right] O2 Sat by Pulse 89 91 96 Oximetry 09/13/18 09/13/18 09/13/18 09:45 10:00 10:15 Temperature Pulse Rate Respiratory Rate Blood Pressure 133/87 115/74 105/70 Blood Pressure [Right] O2 Sat by Pulse 95 95 Oximetry 09/13/18 09/13/18 09/13/18 10:30 10:45 11:00 Temperature Pulse Rate Respiratory Rate Blood Pressure 128/78 136/96 134/102 Blood Pressure [Right] O2 Sat by Pulse 94 94 93 Oximetry 09/13/18 11:15 Temperature Pulse Rate Respiratory Rate Blood Pressure 128/78 Blood Pressure [Right] O2 Sat by Pulse Oximetry - Reevaluation(s) Reevaluation #1: We will repeat a troponin. I do not think that this patient meets criteria for admission at this juncture. 09/13/18 07:10 Reevaluation #2: Patient was road tested. He is awake alert coherent. He did not complain to me of any further chest pain for the last several hours. 09/13/18 14:20 CHALO score - Chalo Score Age > 65: (0) No Aspirin use within the Past 7 Days: (0) No 3 or more CAD Risk Factors: (0) No 2 or more Angina events in past 24 hrs: (0) No Known CAD with more than 50% Stenosis: (0) No Elevated Cardiac Markers: (0) No ST Deviation Greater than 0.5mm: (0) No CHALO Score: 0 ED Medical Decision Making - Lab Data Result diagrams: 09/13/18 02:00 09/13/18 02:00 Laboratory Results - last 24 hr 09/13/18 09/13/18 09/13/18 02:00 02:00 02:00 WBC 3.7 L RBC 4.55 Hgb 13.8 Hct 40.8 MCV 90 MCH 30 MCHC 34 RDW 13.6 Plt Count 143 Eos % (Auto) Mine Geologist Add Manual Diff Complete Total Counted 100 Seg Neutrophils % Mine Geologist Seg Neuts % (Manual) 31.0 L Band Neutrophils % 0 Lymphocytes % (Manual) 40.0 H Reactive Lymphs % (Man) 0 Monocytes % (Manual) 8.0 H Eosinophils % (Manual) 19.0 H Basophils % (Manual) 2.0 H Metamyelocytes % 0 Myelocytes % 0 Promyelocytes % 0 Blast Cells % 0 Nucleated RBC % Not Reportable Seg Neutrophils # Man 1.1 L Band Neutrophils # 0.0 Lymphocytes # (Manual) 1.5 Abs React Lymphs (Man) 0.0 Monocytes # (Manual) 0.3 Eosinophils # (Manual) 0.7 H Basophils # (Manual) 0.1 Metamyelocytes # 0.0 Myelocytes # 0.0 Promyelocytes # 0.0 Blast Cells # 0.0 WBC Morphology Not Reportable Hypersegmented Neuts Not Reportable Hyposegmented Neuts Not Reportable Hypogranular Neuts Not Reportable Smudge Cells Not Reportable Toxic Granulation Not Reportable Toxic Vacuolation Not Reportable Dohle Bodies Not Reportable Pelger-Huet Anomaly Not Reportable Katie Rods Not Reportable Platelet Estimate Not Reportable Clumped Platelets Not Reportable Plt Clumps, EDTA Not Reportable Large Platelets Not Reportable Giant Platelets Not Reportable Platelet Satelliting Not Reportable Plt Morphology Comment Not Reportable RBC Morphology Normal Dimorphic RBCs Not Reportable Polychromasia Not Reportable Hypochromasia Not Reportable Poikilocytosis Not Reportable Anisocytosis Not Reportable Microcytosis Not Reportable Macrocytosis Not Reportable Spherocytes Not Reportable Pappenheimer Bodies Not Reportable Sickle Cells Not Reportable Target Cells Not Reportable Tear Drop Cells Not Reportable Ovalocytes Not Reportable Helmet Cells Not Reportable Torres-[place] Bodies Not Reportable Lolita Rings Not Reportable Lisa Cells Not Reportable Bite Cells Not Reportable Crenated Cell Not Reportable Elliptocytes Not Reportable Acanthocytes (Spur) Not Reportable Rouleaux Not Reportable Hemoglobin C Crystals Not Reportable Schistocytes Not Reportable Malaria parasites Not Reportable Connor Bodies Not Reportable Hem Pathologist Commnt No Sodium 144 Potassium 3.7 Chloride 104.8 Carbon Dioxide 23 Anion Gap 20 BUN 10 Creatinine 1.2 Estimated GFR > 60 BUN/Creatinine Ratio 8 Glucose 92 Calcium 8.7 Troponin T < 0.010 Plasma/Serum Alcohol 0.34 H 09/13/18 03:41 WBC RBC Hgb Hct MCV MCH MCHC RDW Plt Count Eos % (Auto) Add Manual Diff Total Counted Seg Neutrophils % Seg Neuts % (Manual) Band Neutrophils % Lymphocytes % (Manual) Reactive Lymphs % (Man) Monocytes % (Manual) Eosinophils % (Manual) Basophils % (Manual) Metamyelocytes % Myelocytes % Promyelocytes % Blast Cells % Nucleated RBC % Seg Neutrophils # Man Band Neutrophils # Lymphocytes # (Manual) Abs React Lymphs (Man) Monocytes # (Manual) Eosinophils # (Manual) Basophils # (Manual) Metamyelocytes # Myelocytes # Promyelocytes # Blast Cells # WBC Morphology Hypersegmented Neuts Hyposegmented Neuts Hypogranular Neuts Smudge Cells Toxic Granulation Toxic Vacuolation Dohle Bodies Pelger-Huet Anomaly Katie Rods Platelet Estimate Clumped Platelets Plt Clumps, EDTA Large Platelets Giant Platelets Platelet Satelliting Plt Morphology Comment RBC Morphology Dimorphic RBCs Polychromasia Hypochromasia Poikilocytosis Anisocytosis Microcytosis Macrocytosis Spherocytes Pappenheimer Bodies Sickle Cells Target Cells Tear Drop Cells Ovalocytes Helmet Cells Torres-[place]pl[place] Bodies Lolita Rings Lisa Cells Bite Cells Crenated Cell Elliptocytes Acanthocytes (Spur) Rouleaux Hemoglobin C Crystals Schistocytes Malaria parasites Connor Bodies Hem Pathologist Commnt Sodium Potassium Chloride Carbon Dioxide Anion Gap BUN Creatinine Estimated GFR BUN/Creatinine Ratio Glucose Calcium Troponin T < 0.010 Plasma/Serum Alcohol Laboratory Results - last 24 hr 09/13/18 09/13/18 09/13/18 02:00 02:00 02:00 WBC 3.7 L RBC 4.55 Hgb 13.8 Hct 40.8 MCV 90 MCH 30 MCHC 34 RDW 13.6 Plt Count 143 Eos % (Auto) Mine Geologist Add Manual Diff Complete Total Counted 100 Seg Neutrophils % Mine Geologist Seg Neuts % (Manual) 31.0 L Band Neutrophils % 0 Lymphocytes % (Manual) 40.0 H Reactive Lymphs % (Man) 0 Monocytes % (Manual) 8.0 H Eosinophils % (Manual) 19.0 H Basophils % (Manual) 2.0 H Metamyelocytes % 0 Myelocytes % 0 Promyelocytes % 0 Blast Cells % 0 Nucleated RBC % Not Reportable Seg Neutrophils # Man 1.1 L Band Neutrophils # 0.0 Lymphocytes # (Manual) 1.5 Abs React Lymphs (Man) 0.0 Monocytes # (Manual) 0.3 Eosinophils # (Manual) 0.7 H Basophils # (Manual) 0.1 Metamyelocytes # 0.0 Myelocytes # 0.0 Promyelocytes # 0.0 Blast Cells # 0.0 WBC Morphology Not Reportable Hypersegmented Neuts Not Reportable Hyposegmented Neuts Not Reportable Hypogranular Neuts Not Reportable Smudge Cells Not Reportable Toxic Granulation Not Reportable Toxic Vacuolation Not Reportable Dohle Bodies Not Reportable Pelger-Huet Anomaly Not Reportable Katie Rods Not Reportable Platelet Estimate Not Reportable Clumped Platelets Not Reportable Plt Clumps, EDTA Not Reportable Large Platelets Not Reportable Giant Platelets Not Reportable Platelet Satelliting Not Reportable Plt Morphology Comment Not Reportable RBC Morphology Normal Dimorphic RBCs Not Reportable Polychromasia Not Reportable Hypochromasia Not Reportable Poikilocytosis Not Reportable Anisocytosis Not Reportable Microcytosis Not Reportable Macrocytosis Not Reportable Spherocytes Not Reportable Pappenheimer Bodies Not Reportable Sickle Cells Not Reportable Target Cells Not Reportable Tear Drop Cells Not Reportable Ovalocytes Not Reportable Helmet Cells Not Reportable Torres-[place]pl[place] Bodies Not Reportable Lolita Rings Not Reportable Lisa Cells Not Reportable Bite Cells Not Reportable Crenated Cell Not Reportable Elliptocytes Not Reportable Acanthocytes (Spur) Not Reportable Rouleaux Not Reportable Hemoglobin C Crystals Not Reportable Schistocytes Not Reportable Malaria parasites Not Reportable Connor Bodies Not Reportable Hem Pathologist Commnt No Sodium 144 Potassium 3.7 Chloride 104.8 Carbon Dioxide 23 Anion Gap 20 BUN 10 Creatinine 1.2 Estimated GFR > 60 BUN/Creatinine Ratio 8 Glucose 92 Calcium 8.7 Troponin T < 0.010 Plasma/Serum Alcohol 0.34 H 09/13/18 09/13/18 03:41 07:06 WBC RBC Hgb Hct MCV MCH MCHC RDW Plt Count Eos % (Auto) Add Manual Diff Total Counted Seg Neutrophils % Seg Neuts % (Manual) Band Neutrophils % Lymphocytes % (Manual) Reactive Lymphs % (Man) Monocytes % (Manual) Eosinophils % (Manual) Basophils % (Manual) Metamyelocytes % Myelocytes % Promyelocytes % Blast Cells % Nucleated RBC % Seg Neutrophils # Man Band Neutrophils # Lymphocytes # (Manual) Abs React Lymphs (Man) Monocytes # (Manual) Eosinophils # (Manual) Basophils # (Manual) Metamyelocytes # Myelocytes # Promyelocytes # Blast Cells # WBC Morphology Hypersegmented Neuts Hyposegmented Neuts Hypogranular Neuts Smudge Cells Toxic Granulation Toxic Vacuolation Dohle Bodies Pelger-Huet Anomaly Katie Rods Platelet Estimate Clumped Platelets Plt Clumps, EDTA Large Platelets Giant Platelets Platelet Satelliting Plt Morphology Comment RBC Morphology Dimorphic RBCs Polychromasia Hypochromasia Poikilocytosis Anisocytosis Microcytosis Macrocytosis Spherocytes Pappenheimer Bodies Sickle Cells Target Cells Tear Drop Cells Ovalocytes Helmet Cells Torres-Upl[place] Bodies Lolita Rings Lisa Cells Bite Cells Crenated Cell Elliptocytes Acanthocytes (Spur) Rouleaux Hemoglobin C Crystals Schistocytes Malaria parasites Connor Bodies Hem Pathologist Commnt Sodium Potassium Chloride Carbon Dioxide Anion Gap BUN Creatinine Estimated GFR BUN/Creatinine Ratio Glucose Calcium Troponin T < 0.010 < 0.010 Plasma/Serum Alcohol - EKG Data -: EKG Interpreted by Me EKG shows normal: sinus rhythm, axis, intervals, QRS complexes Rate: normal - EKG Data Interpretation: nonspecific ST-T wave robin 09/13/18 06:23 QTcb - Radiology Data Radiology results: report reviewed (NAP) Critical care attestation.: If time is entered above; I have spent that time in minutes in the direct care o f this critically ill patient, excluding procedure time. ED Disposition Clinical Impression: Atypical chest pain, Alcohol abuse Disposition: DC-01 TO HOME OR SELFCARE Is pt being admited?: No Does the pt Need Aspirin: No Condition: Stable Instructions: Chest Pain (ED), Abuse of Alcohol (ED) Referrals: DOMONIQUE JUAREZ MD [Primary Care Provider] - 24 Hours Time of Disposition: 14:20
[2018-09-13] MEDS ORDERED: VITAMIN B-1 100 MG, FOLVITE 1 MG, INFUVITE 10 ML in NACL 0.9% 1000 ML 1,000 ML IV ONE (06:42)
[2018-09-13 15:13] VITALS: BP 136/101
== END 2018-09-13 15:00 | disposition home or self-care (01) ==
LOC: ED 00:49
DX: R07.89 Other chest pain (principal); F10.10 Alcohol abuse, uncomplicated; Z87.891 Personal history of nicotine dependence; Z98.890 Other specified postprocedural states
CPT/HCPCS: 36415; 71045; 80048; 84484; 85007; 85025; 93005; 93010; G0480; J3411; J7030; 80320; 96365; 96366

== ENCOUNTER 2018-09-20 01:32 | Emergency (ER) | payer SELFPAY ==
[2018-09-20] MEDS ORDERED: ULTRAM PO ONE (04:07)
--- NOTE | 2018-09-20 04:14 | Emergency Department Report ---
ED Neck Pain/Injury HPI - General Chief Complaint: Back Pain/Injury Stated Complaint: NECK/BACK PAIN Time Seen by Provider: 09/20/18 03:48 Mode of arrival: Ambulatory Limitations: No Limitations - History of Present Illness Initial Comments: Patient is a 57-year-old [place] male who presents for I posterior lateral neck pain pain is acute on chronic rated at 4/10 aching pain is exacerbated by movement and twisting and is relieved by rest patient advises he is home and does not have anywhere to go this evening and needs arrest is no chest pain or shortness of breath no nausea vomiting no diaphoresis patient is tolerating by mouth intake patient with no acute distress at this time neck range of motion is intact there is no swelling or deformity MD Complaint: neck pain Onset/Timin -: week(s) Place: home Radiation: right lateral Severity: moderate Severity scale (0 -10): 5 Quality: aching Consistency: constant Improves With: none Worsens With: movement of neck Context: unknown Associated Symptoms: none Treatments Prior to Arrival: none - Related Data Previous Rx's Medication Instructions Recorded Last Taken Type Thiamine [Vitamin B-1] 100 mg PO QDAY #30 tablet 05/11/18 Unknown Rx oxyCODONE /ACETAMINOPHEN [Percocet 1 tab PO Q6HR PRN #10 tablet 05/11/18 Unknown Rx 5/325 mg] Benzonatate [Tessalon Perles] 100 mg PO Q8HR #20 capsule 05/12/18 Unknown Rx Ketorolac [Toradol] 10 mg PO Q6H PRN #14 tablet 05/12/18 Unknown Rx Naproxen 250 mg PO Q6HR #20 tablet 05/15/18 Unknown Rx Cyclobenzaprine [Flexeril] 10 mg PO TID PRN #30 tablet 09/20/18 Unknown Rx Menthol/Camphor [[place] 1 applicatio TP QID PRN #1 tube 09/20/18 Unknown Rx Ointment] Naproxen [Naprosyn] 500 mg PO BID PRN #30 tablet 09/20/18 Unknown Rx Allergies Allergy/AdvReac Type Severity Reaction Status Date / Time No Known Allergies Allergy Verified 08/27/17 08:02 ED Review of Systems ROS: Stated complaint: NECK/BACK PAIN Other details as noted in HPI Constitutional: denies: chills, fever Eyes: denies: eye pain, eye discharge, vision change ENT: denies: ear pain, throat pain Respiratory: denies: cough, shortness of breath, wheezing Cardiovascular: denies: chest pain, palpitations Endocrine: no symptoms reported Gastrointestinal: denies: abdominal pain, nausea, diarrhea Genitourinary: denies: urgency, dysuria Musculoskeletal: arthralgia, myalgia. denies: back pain, joint swelling Skin: denies: rash, lesions Neurological: denies: headache, weakness, paresthesias Psychiatric: denies: anxiety, depression Hematological/Lymphatic: denies: easy bleeding, easy bruising ED Past Medical Hx - Past Medical History Previous Medical History?: Yes Hx HIV: No Additional medical history: chronic pain in back, neck and L knee, ETOH abuse. herniated disc - Surgical History Past Surgical History?: Yes Additional Surgical History: Left Knee. skin graft to right hand - Social History Smoking Status: Never Smoker Substance Use Type: Alcohol - Medications Home Medications: Home Medications Medication Instructions Recorded Confirmed Last Taken Type Thiamine [Vitamin B-1] 100 mg PO QDAY #30 tablet 05/11/18 Unknown Rx oxyCODONE /ACETAMINOPHEN [Percocet 1 tab PO Q6HR PRN #10 tablet 05/11/18 Unknown Rx 5/325 mg] Benzonatate [Tessalon Perles] 100 mg PO Q8HR #20 capsule 05/12/18 Unknown Rx Ketorolac [Toradol] 10 mg PO Q6H PRN #14 tablet 05/12/18 Unknown Rx Naproxen 250 mg PO Q6HR #20 tablet 05/15/18 Unknown Rx Cyclobenzaprine [Flexeril] 10 mg PO TID PRN #30 tablet 09/20/18 Unknown Rx Menthol/Camphor [[place] 1 applicatio TP QID PRN #1 tube 09/20/18 Unknown Rx Ointment] Naproxen [Naprosyn] 500 mg PO BID PRN #30 tablet 09/20/18 Unknown Rx ED Physical Exam - General Limitations: No Limitations General appearance: alert, in no apparent distress - Head Head exam: Present: atraumatic, normocephalic - Eye Eye exam: Present: normal appearance, PERRL, EOMI Pupils: Present: normal accommodation - ENT ENT exam: Present: normal exam, normal orophraynx, mucous membranes moist, normal external ear exam. Absent: TM's normal bilaterally - Neck Neck exam: Present: normal inspection, full ROM. Absent: tenderness, meningismus, lymphadenopathy, thyromegaly - Expanded Neck Exam Expanded Neck exam: Present: tenderness. Absent: midline deformity, anterior neck swelling, thyroid mass, carotid bruit, tracheal deviation - Respiratory Respiratory exam: Present: normal lung sounds bilaterally. Absent: respiratory distress, wheezes, rhonchi, chest wall tenderness - Cardiovascular Cardiovascular Exam: Present: regular rate, normal rhythm, normal heart sounds. Absent: systolic murmur, diastolic murmur, rubs, gallop - GI/Abdominal GI/Abdominal exam: Present: soft, normal bowel sounds. Absent: distended, tenderness, mass, hernia - Rectal Rectal exam: Present: deferred. Absent: bloody stool, hemorrhoids, normal prostate, prostate tenderness, prostate enlargement - exam: Present: normal inspection - Extremities Exam Extremities exam: Present: normal inspection - Back Exam Back exam: Present: normal inspection, full ROM. Absent: CVA tenderness (R), CVA tenderness (L), muscle spasm, paraspinal tenderness, vertebral tenderness, rash noted - Neurological Exam Neurological exam: Present: alert, oriented X3, CN II-XII intact, normal gait, reflexes normal. Absent: motor sensory deficit - Psychiatric Psychiatric exam: Present: normal affect, normal mood. Absent: depressed, agitated - Skin Skin exam: Present: warm, dry, intact, normal color. Absent: rash, diaphoretic, erythema, ecchymosis ED Course Vital Signs 09/20/18 09/20/18 01:35 01:36 Temperature 97.5 F L 97.5 F L Pulse Rate 99 H 105 H Respiratory 18 18 Rate Blood Pressure 125/87 125/87 O2 Sat by Pulse 98 98 Oximetry ED Medical Decision Making - EKG Data pt improved with medication given in ed pt denies sob no cp no n/v there is no neck swelling no deformity no ecchymosis , no posterior vertebral point tednerness to palpation, pt for dc to home st able condition - Medical Decision Making neck strain plan nsaid muscle relaxant follow up with pcp in 2-3 days pt is currently a/o x 3 ambulatory with steady gait, will follow up with ortho in 2-3 dayis. Critical care attestation.: If time is entered above; I have spent that time in minutes in the direct care of this critically ill patient, excluding procedure time. ED Disposition Clinical Impression: Neck muscle strain Qualifiers: Encounter type: initial encounter Qualified Code(s): S16.1XXA - Strain of muscle, fascia and tendon at neck level, initial encounter Disposition: TO HOME OR SELFCARE Is pt being admited?: No Does the pt Need Aspirin: No Condition: Stable Instructions: Muscle Strain (ED) Prescriptions: Cyclobenzaprine [Flexeril] 10 mg PO TID PRN #30 tablet PRN Reason: Muscle Spasm Naproxen [Naprosyn] 500 mg PO BID PRN #30 tablet PRN Reason: pain Menthol/Camphor [[place] Ointment] 1 applicatio TP QID PRN #1 tube PRN Reason: Pain , Severe (7-10) Referrals: OREN [facility] MD LEILANI [Primary Care Provider] - 3-5 Days Forms: Work/School Release Form(ED) Time of Disposition: 04:26
[2018-09-20 07:03] VITALS: BP 134/89
== END 2018-09-20 07:03 | disposition home or self-care (01) ==
LOC: ED 01:32
DX: S16.1XXA Strain of muscle, fascia and tendon at neck level, initial encounter (principal); G89.29 Other chronic pain; X58.XXXA Exposure to other specified factors, initial encounter; Y93.89 Activity, other specified; Y92.89 Other specified places as the place of occurrence of the external cause; Y99.8 Other external cause status

== ENCOUNTER 2018-09-22 02:46 | Emergency (ER) | payer SELFPAY ==
[2018-09-22 02:59] VITALS: BP 131/88
[2018-09-22] MEDS ORDERED: IBUPROFEN PO ONE (08:48)
--- NOTE | 2018-09-22 08:50 | Emergency Department Report ---
ED General Adult HPI - General Chief complaint: Neck Pain/Injury Stated complaint: NECK PAIIN Time Seen by Provider: 09/22/18 07:16 Source: patient Mode of arrival: Ambulatory Limitations: No Limitations - History of Present Illness Initial comments: Patient is a 57-year-old male with a history of chronic neck pain who presents with lateral neck pain pain rated at 4/10 aching pain is exacerbated by movement and twisting and is relieved by rest. Patient is laying comfortably in the ED chair. Patient reports that he is homeless so he reports back to the ED not for worsening pain but wanted to follow-up here in the ED for his neck pain. He denies any recent injuries, trauma or falls. - Related Data Previous Rx's Medication Instructions Recorded Last Taken Type Thiamine [Vitamin B-1] 100 mg PO QDAY #30 tablet 05/11/18 Unknown Rx oxyCODONE /ACETAMINOPHEN [Percocet 1 tab PO Q6HR PRN #10 tablet 05/11/18 Unknown Rx 5/325 mg] Benzonatate [Tessalon Perles] 100 mg PO Q8HR #20 capsule 05/12/18 Unknown Rx Ketorolac [Toradol] 10 mg PO Q6H PRN #14 tablet 05/12/18 Unknown Rx Naproxen 250 mg PO Q6HR #20 tablet 05/15/18 Unknown Rx Cyclobenzaprine [Flexeril] 10 mg PO TID PRN #30 tablet 09/20/18 Unknown Rx Menthol/Camphor [[place] 1 applicatio TP QID PRN #1 tube 09/20/18 Unknown Rx Ointment] Naproxen [Naprosyn] 500 mg PO BID PRN #30 tablet 09/20/18 Unknown Rx Allergies Allergy/AdvReac Type Severity Reaction Status Date / Time No Known Allergies Allergy Verified 08/27/17 08:02 ED Review of Systems ROS: Stated complaint: NECK PAIIN Other details as noted in HPI Comment: All other systems reviewed and negative ED Past Medical Hx - Past Medical History Hx HIV: No Additional medical history: chronic pain in back, neck and L knee, ETOH abuse. herniated disc - Surgical History Additional Surgical History: Left Knee. skin graft to right hand - Social History Smoking Status: Never Smoker Substance Use Type: Alcohol - Medications Home Medications: Home Medications Medication Instructions Recorded Confirmed Last Taken Type Thiamine [Vitamin B-1] 100 mg PO QDAY #30 tablet 05/11/18 Unknown Rx oxyCODONE /ACETAMINOPHEN [Percocet 1 tab PO Q6HR PRN #10 tablet 05/11/18 Unknown Rx 5/325 mg] Benzonatate [Tessalon Perles] 100 mg PO Q8HR #20 capsule 05/12/18 Unknown Rx Ketorolac [Toradol] 10 mg PO Q6H PRN #14 tablet 05/12/18 Unknown Rx Naproxen 250 mg PO Q6HR #20 tablet 05/15/18 Unknown Rx Cyclobenzaprine [Flexeril] 10 mg PO TID PRN #30 tablet 09/20/18 Unknown Rx Menthol/Camphor [[place] 1 applicatio TP QID PRN #1 tube 09/20/18 Unknown Rx Ointment] Naproxen [Naprosyn] 500 mg PO BID PRN #30 tablet 09/20/18 Unknown Rx ED Physical Exam - General Limitations: No Limitations General appearance: alert, in no apparent distress - Head Head exam: Present: atraumatic, normocephalic - Eye Eye exam: Present: normal appearance - ENT ENT exam: Present: mucous membranes moist - Neck Neck exam: Present: normal inspection, full ROM, other (no cervical spinal tenderness). Absent: lymphadenopathy - Respiratory Respiratory exam: Present: normal lung sounds bilaterally. Absent: respiratory distress - Cardiovascular Cardiovascular Exam: Present: regular rate, normal rhythm. Absent: systolic murmur, diastolic murmur, rubs, gallop - GI/Abdominal GI/Abdominal exam: Present: soft, normal bowel sounds - Rectal Rectal exam: Present: deferred - Extremities Exam Extremities exam: Present: normal inspection - Back Exam Back exam: Present: normal inspection, full ROM. Absent: tenderness - Neurological Exam Neurological exam: Present: alert, oriented X3, normal gait - Psychiatric Psychiatric exam: Present: normal affect, normal mood - Skin Skin exam: Present: warm, dry, intact, normal color. Absent: rash ED Course Vital Signs 09/22/18 02:51 Temperature 97.9 F Pulse Rate 106 H Respiratory 18 Rate Blood Pressure 131/88 O2 Sat by Pulse 97 Oximetry ED Medical Decision Making - Medical Decision Making 57-year-old male presents with myalgias of the neck. I discussed with the patient that he was given referrals for follow-up and need to make an appointment to follow up with the referrals he was given. I discussed the patient he should take his medication he uses medication as prescribed. Patient is in no acute distress, vital signs are normal, no deformity of the neck noted, no neurological deficit. Social work notified and patient was given resources for homeless shelters that he visited her stay. Critical care attestation.: If time is entered above; I have spent that time in minutes in the direct care of this critically ill patient, excluding procedure time. ED Disposition Clinical Impression: Neck muscle strain Disposition: DC- TO HOME OR SELFCARE Is pt being admited?: No Does the pt Need Aspirin: No Condition: Stable Instructions: Muscle Strain (ED) Additional Instructions: Discharge Referrals: DOMONIQUE JUAREZ MD [Primary Care Provider] - 3-5 Days Forms: Work/School Release Form(ED) Time of Disposition: 08:59
== END 2018-09-22 10:03 | disposition home or self-care (01) ==
LOC: ED 02:46
DX: S16.1XXA Strain of muscle, fascia and tendon at neck level, initial encounter (principal); M54.5 Low back pain; M25.562 Pain in left knee; G89.29 Other chronic pain; Z79.899 Other long term (current) drug therapy; X58.XXXA Exposure to other specified factors, initial encounter; Y93.89 Activity, other specified; Y92.89 Other specified places as the place of occurrence of the external cause; Y99.8 Other external cause status
CPT/HCPCS: 99282

== ENCOUNTER 2018-09-25 19:42 | Emergency (ER) | payer SELFPAY ==
[2018-09-25] MEDS ORDERED: ASPIRIN PO ONE (20:06)
[2018-09-25] MEDS ORDERED: ASPIRIN ONE (20:10)
[2018-09-25 20:27] LABS: Hematocrit 39.4 % (35.5-45.6); Hemoglobin 13.3 gm/dl (11.8-15.2); Mean Corpuscular HGB Conc 34 % (32-34); Mean Corpuscular Hemoglobin 31 pg (28-32); Mean Corpuscular Volume 90 fl (84-94); Platelet Count 120 K/mm3 (140-440); Red Blood Count 4.37 M/mm3 (3.65-5.03); Red Cell Distribution Width 14.1 % (13.2-15.2)
--- NOTE | 2018-09-25 20:39 | XRay Report ---
CHEST 1 VIEW INDICATION / CLINICAL INFORMATION: Chest Pain. COMPARISON: 09/13/2018 FINDINGS: SUPPORT DEVICES: None. HEART / MEDIASTINUM: No significant abnormality. LUNGS / PLEURA: No significant pulmonary or pleural abnormality. No pneumothorax. ADDITIONAL FINDINGS: No significant additional findings. IMPRESSION: 1. No acute disease. No interval change. Signer Name: Poly Lazo MD Signed: 09/25/2018 8:35 PM Workstation Name: [id number]
[2018-09-25 20:40] LABS: BUN/Creatinine Ratio 9; Blood Urea Nitrogen 7 mg/dL (9-20); Calcium 8.8 mg/dL (8.4-10.2); Hemolysis Index 8
--- NOTE | 2018-09-25 21:08 | Emergency Department Report ---
ED General Adult HPI - General Chief complaint: Chest Pain Stated complaint: CHEST PAIN/SOB/LOWER BACK PAIN Time Seen by Provider: 09/25/18 21:03 Source: patient Mode of arrival: Ambulatory Limitations: Other - History of Present Illness Initial comments: 57 y.o. male with history of alcohol abuse, chronic pain and back neck and left knee presents with complaint of chest pain. Has a chest pain was started 2 days ago per the patient. Patient was recently evaluated 2 days ago for chest pain. Patient denies any nausea or vomiting. Patient states he last had a drink yesterday. Patient denies any fever or cough. Patient has had no trauma to the chest. - Related Data Previous Rx's Medication Instructions Recorded Last Taken Type Thiamine [Vitamin B-1] 100 mg PO QDAY #30 tablet 05/11/18 Unknown Rx oxyCODONE /ACETAMINOPHEN [Percocet 1 tab PO Q6HR PRN #10 tablet 05/11/18 Unknown Rx 5/325 mg] Benzonatate [Tessalon Perles] 100 mg PO Q8HR #20 capsule 05/12/18 Unknown Rx Ketorolac [Toradol] 10 mg PO Q6H PRN #14 tablet 05/12/18 Unknown Rx Naproxen 250 mg PO Q6HR #20 tablet 05/15/18 Unknown Rx Cyclobenzaprine [Flexeril] 10 mg PO TID PRN #30 tablet 09/20/18 Unknown Rx Menthol/Camphor [[place] 1 applicatio TP QID PRN #1 tube 09/20/18 Unknown Rx Ointment] Naproxen [Naprosyn] 500 mg PO BID PRN #30 tablet 09/20/18 Unknown Rx Bacitracin Zinc Oint [Antibiotic 1 applicatio TP BID #1 tube 09/22/18 Unknown Rx Oint] Allergies Allergy/AdvReac Type Severity Reaction Status Date / Time No Known Allergies Allergy Verified 09/25/18 20:10 ED Review of Systems ROS: Stated complaint: CHEST PAIN/SOB/LOWER BACK PAIN Other details as noted in HPI Constitutional: denies: chills, fever Eyes: denies: eye pain, eye discharge, vision change ENT: denies: ear pain, throat pain Respiratory: denies: cough, shortness of breath, wheezing Cardiovascular: chest pain Endocrine: no symptoms reported Gastrointestinal: denies: abdominal pain, nausea, diarrhea Genitourinary: denies: urgency, dysuria Musculoskeletal: denies: back pain, joint swelling, arthralgia Skin: denies: rash, lesions Neurological: denies: headache, weakness, paresthesias Psychiatric: denies: anxiety, depression Hematological/Lymphatic: denies: easy bleeding, easy bruising ED Past Medical Hx - Past Medical History Previous Medical History?: Yes Hx HIV: No Additional medical history: chronic pain in back, neck and L knee, ETOH abuse. herniated disc - Surgical History Past Surgical History?: Yes Additional Surgical History: Left Knee. skin graft to right hand - Social History Smoking Status: Never Smoker Substance Use Type: Alcohol - Medications Home Medications: Home Medications Medication Instructions Recorded Confirmed Last Taken Type Thiamine [Vitamin B-1] 100 mg PO QDAY #30 tablet 05/11/18 Unknown Rx oxyCODONE /ACETAMINOPHEN [Percocet 1 tab PO Q6HR PRN #10 tablet 05/11/18 Unknown Rx 5/325 mg] Benzonatate [Tessalon Perles] 100 mg PO Q8HR #20 capsule 05/12/18 Unknown Rx Ketorolac [Toradol] 10 mg PO Q6H PRN #14 tablet 05/12/18 Unknown Rx Naproxen 250 mg PO Q6HR #20 tablet 05/15/18 Unknown Rx Cyclobenzaprine [Flexeril] 10 mg PO TID PRN #30 tablet 09/20/18 Unknown Rx Menthol/Camphor [[place] 1 applicatio TP QID PRN #1 tube 09/20/18 Unknown Rx Ointment] Naproxen [Naprosyn] 500 mg PO BID PRN #30 tablet 09/20/18 Unknown Rx Bacitracin Zinc Oint [Antibiotic 1 applicatio TP BID #1 tube 09/22/18 Unknown Rx Oint] ED Physical Exam - General Limitations: Other General appearance: alert, other (dishelved; ) - Head Head exam: Present: atraumatic, normocephalic - Eye Eye exam: Present: normal appearance - ENT ENT exam: Present: mucous membranes moist - Neck Neck exam: Present: normal inspection - Respiratory Respiratory exam: Present: normal lung sounds bilaterally. Absent: respiratory distress - Cardiovascular Cardiovascular Exam: Present: regular rate, normal rhythm, other (reproducible anterior chest wall tenderness; no evidence of erythema or exudate). Absent: systolic murmur, diastolic murmur, rubs, gallop - GI/Abdominal GI/Abdominal exam: Present: soft, normal bowel sounds - Rectal Rectal exam: Present: deferred - Extremities Exam Extremities exam: Present: normal inspection - Back Exam Back exam: Present: normal inspection - Neurological Exam Neurological exam: Present: alert, oriented X3 - Psychiatric Psychiatric exam: Present: normal affect, normal mood - Skin Skin exam: Present: warm, dry, intact, normal color. Absent: rash ED Course Vital Signs 09/25/18 20:04 Temperature 98.2 F Pulse Rate 104 H Respiratory 18 Rate Blood Pressure 143/100 O2 Sat by Pulse 98 Oximetry ED Medical Decision Making - Lab Data Result diagrams: 09/25/18 20:13 09/25/18 20:13 - EKG Data Rate: normal - EKG Data When compared to previous EKG there are: changes noted Interpretation: nonspecific ST-T wave robin - Medical Decision Making Patient received ultram therapy while in the ER. Patient has had a negative exercise stress test in the past ( May 2018 per prior records). Patient had 2 sets of troponins which were negative. Patient to be discharged to follow up with cardiology as an outpatient. - Differential Diagnosis STEMI; NSTEMI; Anemia; Arryhthmia; Critical care attestation.: If time is entered above; I have spent that time in minutes in the direct care of this critically ill patient, excluding procedure time. ED Disposition Clinical Impression: Chest pain, Alcoholism Disposition: DC-01 TO HOME OR SELFCARE Is pt being admited?: No Does the pt Need Aspirin: No Condition: Stable Instructions: Chest Pain (ED) Referrals: DOMONIQUE JUAREZ MD [Primary Care Provider] - 3-5 Days Time of Disposition: 00:22 Print Language: MEXICAN
[2018-09-25 21:10] LABS: Total Cells Counted 100
[2018-09-25 21:11] LABS: RBC Morphology Normal
[2018-09-25] MEDS ORDERED: ULTRAM PO ONE (22:18)
[2018-09-26 01:01] VITALS: BP 107/65
== END 2018-09-26 01:02 | disposition home or self-care (01) ==
LOC: ED 19:42
DX: R07.89 Other chest pain (principal); F10.20 Alcohol dependence, uncomplicated; G89.29 Other chronic pain
CPT/HCPCS: 36415; 71045; 80048; 84484; 85007; 85025; 93005; 93010

== ENCOUNTER 2018-09-30 00:09 | Emergency (ER) | payer SELFPAY ==
[2018-09-30 01:12] LABS: Hematocrit 36.4 % (35.5-45.6); Hemoglobin 12.1 gm/dl (11.8-15.2); Mean Corpuscular HGB Conc 33 % (32-34); Mean Corpuscular Volume 91 fl (84-94); Platelet Count 132 K/mm3 (140-440); Red Cell Distribution Width 14.6 % (13.2-15.2)
--- NOTE | 2018-09-30 01:15 | XRay Report ---
CHEST 2 VIEWS INDICATION / CLINICAL INFORMATION: Chest Pain. Difficulty breathing for several months. Generalized weakness. Nonproductive cough. COMPARISON: One view of the chest from 09/25/2018. FINDINGS: SUPPORT DEVICES: None. HEART / MEDIASTINUM: No significant abnormality. LUNGS / PLEURA: No significant pulmonary or pleural abnormality. No pneumothorax. ADDITIONAL FINDINGS: No significant additional findings. IMPRESSION: No acute findings. Signer Name: Elbert Craig MD Signed: 09/30/2018 1:11 AM Workstation Name: [id number]
[2018-09-30 01:30] LABS: BUN/Creatinine Ratio 15; Blood Urea Nitrogen 12 mg/dL (9-20); Calcium 8.5 mg/dL (8.4-10.2); Hemolysis Index 7
--- NOTE | 2018-09-30 01:54 | Emergency Department Report ---
ED Chest Pain HPI - General Chief Complaint: Chest Pain Stated Complaint: CHEST PAIN SOB LOWER BACK PAIN Time Seen by Provider: 09/30/18 01:45 Source: patient Mode of arrival: Ambulatory Limitations: No Limitations - History of Present Illness Initial Comments: Patient is 57 years old male with history of alcohol abuse, hypertension. Patient presented to the ER stating that he is having chest pain, central, sharp in nature was no radiation. Patient denied any shortness of breath, cough, fever or chills. Patient is obviously intoxicated with strong smell of alcohol. MD Complaint: chest pain -: Last night Onset: during rest Pain Location: substernal Severity: moderate Severity scale (0 -10): 5 Quality: sharp - Related Data Previous Rx's Medication Instructions Recorded Last Taken Type Thiamine [Vitamin B-1] 100 mg PO QDAY #30 tablet 05/11/18 Unknown Rx oxyCODONE /ACETAMINOPHEN [Percocet 1 tab PO Q6HR PRN #10 tablet 05/11/18 Unknown Rx 5/325 mg] Benzonatate [Tessalon Perles] 100 mg PO Q8HR #20 capsule 05/12/18 Unknown Rx Ketorolac [Toradol] 10 mg PO Q6H PRN #14 tablet 05/12/18 Unknown Rx Naproxen 250 mg PO Q6HR #20 tablet 05/15/18 Unknown Rx Cyclobenzaprine [Flexeril] 10 mg PO TID PRN #30 tablet 09/20/18 Unknown Rx Menthol/Camphor [[place] 1 applicatio TP QID PRN #1 tube 09/20/18 Unknown Rx Ointment] Naproxen [Naprosyn] 500 mg PO BID PRN #30 tablet 09/20/18 Unknown Rx Bacitracin Zinc Oint [Antibiotic 1 applicatio TP BID #1 tube 09/22/18 Unknown Rx Oint] Allergies Allergy/AdvReac Type Severity Reaction Status Date / Time No Known Allergies Allergy Verified 09/25/18 20:10 Heart Score - HEART Score History: Moderately suspicious EKG: Non-specific Age: 45-65 Risk factors: 1-2 risk factors Troponin: < normal limit HEART Score: 4 - Critical Actions Critical Actions: 4-6 pts:12-16.6% risk of adverse cardiac event. Should be admitted ED Review of Systems ROS: Stated complaint: CHEST PAIN SOB LOWER BACK PAIN Other details as noted in HPI Comment: All other systems reviewed and negative Constitutional: denies: chills, fever Respiratory: denies: cough, orthopnea, shortness of breath, SOB with exertion Cardiovascular: chest pain Gastrointestinal: denies: abdominal pain, nausea, vomiting, diarrhea, constipation, hematemesis, melena, hematochezia Musculoskeletal: denies: back pain Neurological: denies: headache, weakness, numbness, paresthesias, confusion ED Past Medical Hx - Past Medical History Previous Medical History?: Yes Hx Heart Attack/AMI: Yes Hx HIV: No Additional medical history: chronic pain in back, neck and L knee, ETOH abuse. herniated disc - Surgical History Past Surgical History?: Yes Additional Surgical History: Left Knee. skin graft to right hand - Social History Smoking Status: Never Smoker Substance Use Type: Alcohol - Medications Home Medications: Home Medications Medication Instructions Recorded Confirmed Last Taken Type Thiamine [Vitamin B-1] 100 mg PO QDAY #30 tablet 05/11/18 Unknown Rx oxyCODONE /ACETAMINOPHEN [Percocet 1 tab PO Q6HR PRN #10 tablet 05/11/18 Unknown Rx 5/325 mg] Benzonatate [Tessalon Perles] 100 mg PO Q8HR #20 capsule 05/12/18 Unknown Rx Ketorolac [Toradol] 10 mg PO Q6H PRN #14 tablet 05/12/18 Unknown Rx Naproxen 250 mg PO Q6HR #20 tablet 05/15/18 Unknown Rx Cyclobenzaprine [Flexeril] 10 mg PO TID PRN #30 tablet 09/20/18 Unknown Rx Menthol/Camphor [[place] 1 applicatio TP QID PRN #1 tube 09/20/18 Unknown Rx Ointment] Naproxen [Naprosyn] 500 mg PO BID PRN #30 tablet 09/20/18 Unknown Rx Bacitracin Zinc Oint [Antibiotic 1 applicatio TP BID #1 tube 09/22/18 Unknown Rx Oint] ED Physical Exam - General Limitations: No Limitations General appearance: alert, appears intoxicated, anxious - Head Head exam: Present: atraumatic, normocephalic, normal inspection - Eye Eye exam: Present: normal appearance, PERRL - ENT ENT exam: Present: normal exam, normal orophraynx, mucous membranes moist - Neck Neck exam: Present: normal inspection, full ROM. Absent: tenderness, meningismus - Respiratory Respiratory exam: Present: normal lung sounds bilaterally - Cardiovascular Cardiovascular Exam: Present: regular rate, normal rhythm, normal heart sounds - GI/Abdominal GI/Abdominal exam: Present: soft, normal bowel sounds. Absent: distended, tenderness, guarding, rebound, rigid, organomegaly, mass, bruit, pulsatile mass, hernia - Extremities Exam Extremities exam: Present: normal inspection, full ROM, normal capillary refill - Back Exam Back exam: Present: normal inspection, full ROM. Absent: CVA tenderness (R), CVA tenderness (L) - Neurological Exam Neurological exam: Present: alert, oriented X3, CN II-XII intact - Psychiatric Psychiatric exam: Present: normal mood, anxious - Skin Skin exam: Present: warm, intact, normal color ED Course Vital Signs 09/30/18 09/30/18 09/30/18 00:15 01:00 01:05 Temperature 97.8 F 98 F Pulse Rate 78 108 H 101 H Respiratory 18 25 H 15 Rate Blood Pressure 128/82 134/95 Blood Pressure 129/98 [Left] O2 Sat by Pulse 98 98 96 Oximetry 09/30/18 09/30/18 09/30/18 02:00 03:00 03:01 Temperature Pulse Rate 106 H 107 H Respiratory 13 14 16 Rate Blood Pressure 139/96 119/79 Blood Pressure [Left] O2 Sat by Pulse 98 95 Oximetry MERT score - Mert Score Age > 65: (0) No Aspirin use within the Past 7 Days: (0) No 3 or more CAD Risk Factors: (0) No 2 or more Angina events in past 24 hrs: (0) No Known CAD with more than 50% Stenosis: (0) No Elevated Cardiac Markers: (0) No ST Deviation Greater than 0.5mm: (0) No MERT Score: 0 ED Medical Decision Making - Lab Data Result diagrams: 09/30/18 00:26 09/30/18 00:26 - EKG Data -: EKG Interpreted by Pr EKG shows normal: sinus rhythm Rate: normal - EKG Data Interpretation: no acute changes - Radiology Data Radiology results: report reviewed Chest x-ray is unremarkable. - Medical Decision Making Patient is 57 years old male with history of alcohol abuse, hypertension. Patient presented to the ER stating that he is having chest pain, central, sharp in nature was no radiation. Patient denied any shortness of breath, cough, fever or chills. Patient is obviously intoxicated with strong smell of alcohol. EKG is unremarkable. 2 sets of troponin is negative. Chest x-ray is negative. Patient alcohol level is 0.26. Patient will be observed in the ER until sober. Critical care attestation.: If time is entered above; I have spent that time in minutes in the direct care of this critically ill patient, excluding procedure time. ED Disposition Clinical Impression: Chest pain, Alcohol intoxication Disposition: DC-01 TO HOME OR SELFCARE Is pt being admited?: No Condition: Stable Instructions: Chest Pain (ED), Alcohol Intoxication (ED) Referrals: PRIMARY CARE, [Primary Care Provider] - 3-5 Days
[2018-09-30] MEDS ORDERED: IBUPROFEN PO ONE ×2 (02:55)
[2018-09-30] MEDS ORDERED: NACL 0.9% 1000 ML 1,000 ML IV ONE (03:29)
[2018-09-30] MEDS ORDERED: NACL 0.9% 1000 ML 1,000 ML ONE (03:32)
[2018-09-30 03:34] LABS: Basophils % (Manual) 0 % (0.0-1.8); Total Cells Counted 100
[2018-09-30 03:35] LABS: Anisocytosis 1+; Large Platelets 1+; Platelet Estimate Consistent w Auto; Poikilocytosis 1+
[2018-09-30] MEDS ORDERED: ZOFRAN ONE (05:03)
[2018-09-30] MEDS ORDERED: ZOFRAN IV ONE (05:06)
[2018-09-30 07:54] VITALS: BP 127/68
== END 2018-09-30 10:35 | disposition home or self-care (01) ==
LOC: ED 00:09
DX: R07.89 Other chest pain (principal); F10.129 Alcohol abuse with intoxication, unspecified; R42 Dizziness and giddiness; I25.2 Old myocardial infarction; G89.29 Other chronic pain; M54.9 Dorsalgia, unspecified; M54.2 Cervicalgia; M25.562 Pain in left knee; Z87.19 Personal history of other diseases of the digestive system; Z98.890 Other specified postprocedural states; Z79.899 Other long term (current) drug therapy
CPT/HCPCS: 36415; 71045; 80048; 83690; 84484; 85007; 85025; 93005; 93010; 96361; 96374; 99284; J2405; J7030; 80320; G0480

== ENCOUNTER 2018-10-01 01:10 | Emergency (ER) | payer SELFPAY ==
[2018-10-01] MEDS ORDERED: NACL 0.9% 1000 ML 1,000 ML IV ONE (05:21)
[2018-10-01] MEDS ORDERED: PEPCID IV ONE (05:21)
--- NOTE | 2018-10-01 05:24 | Event Note ---
Date: 10/01/18 Medical screening examination: 57-year-old gentleman, multiple recent visits for alcohol intoxication and reported chest pain, now presenting today with a complaint of lightheadedness, chest tightness, feeling like he might pass out. Patient endorses no DVT or pulmonary embolism risk factors. Patient appears to be homeless. Suspect secondary gain/possible malingering. Does not meet 1013 criteria. Screening laboratory studies EKG, x-ray of the chest, CT scan of the brain ordered. Vital Signs 10/01/18 01:12 Temperature 98.2 F Pulse Rate 111 H Respiratory 18 Rate Blood Pressure 107/76 O2 Sat by Pulse 99 Oximetry
[2018-10-01 05:43] LABS: Hematocrit 34.2 % (35.5-45.6); Hemoglobin 11.4 gm/dl (11.8-15.2); Mean Corpuscular HGB Conc 33 % (32-34); Mean Corpuscular Volume 91 fl (84-94); Platelet Count 137 K/mm3 (140-440); Red Blood Count 3.75 M/mm3 (3.65-5.03); Red Cell Distribution Width 14.6 % (13.2-15.2)
--- NOTE | 2018-10-01 05:52 | XRay Report ---
CHEST 1 VIEW INDICATION / CLINICAL INFORMATION: Chest pain. Near syncope. COMPARISON: 2 views of the chest from 09/30/2018. FINDINGS: SUPPORT DEVICES: None. HEART / MEDIASTINUM: No significant abnormality. LUNGS / PLEURA: No significant pulmonary or pleural abnormality. No pneumothorax. ADDITIONAL FINDINGS: No significant additional findings. IMPRESSION: No acute findings. Signer Name: Elbert Craig MD Signed: 10/01/2018 5:47 AM Workstation Name: [id number]
[2018-10-01 06:05] LABS: INR 1.01 (0.87-1.13)
[2018-10-01 06:11] LABS: BUN/Creatinine Ratio 11; Blood Urea Nitrogen 8 mg/dL (9-20); Calcium 8.3 mg/dL (8.4-10.2); Hemolysis Index 7
--- NOTE | 2018-10-01 07:41 | Emergency Department Report ---
ED Chest Pain HPI - General Chief Complaint: Chest Pain Stated Complaint: CHEST PAIN/DIZZY Time Seen by Provider: 10/01/18 06:08 Source: patient, EMS Mode of arrival: Wheelchair Limitations: No Limitations - History of Present Illness Initial Comments: 57 year old male with a history of alcohol abuse, CAD, chronic back pain, herniated disc, and frequent ER visits presents to the hospital with complaints of chest pain. States he fainted while walking. Patient is intoxicated and falling asleep during examination. He is unable to characterize pain. He has had multiple recent ER visits for chest pain. 05/02/2018 and negative stress test and normal LV normal function. Patient is currently homeless. Severity scale (0 -10): 7 - Related Data Home Medications Medication Instructions Recorded Confirmed Last Taken No Known Home Medications [No 10/01/18 10/01/18 Unknown Reported Home Medications] Allergies Allergy/AdvReac Type Severity Reaction Status Date / Time No Known Allergies Allergy Verified 09/25/18 20:10 Heart Score - HEART Score History: Slightly suspicious EKG: Non-specific Age: 45-65 Risk factors: 1-2 risk factors Troponin: < normal limit HEART Score: 3 ED Review of Systems ROS: Stated complaint: CHEST PAIN/DIZZY Other details as noted in HPI ED Past Medical Hx - Past Medical History Previous Medical History?: Yes Hx Heart Attack/AMI: Yes Hx HIV: No Additional medical history: chronic pain in back, neck and L knee, ETOH abuse. herniated disc - Surgical History Past Surgical History?: No Additional Surgical History: Left Knee. skin graft to right hand - Social History Smoking Status: Never Smoker Substance Use Type: Alcohol - Medications Home Medications: Home Medications Medication Instructions Recorded Confirmed Last Taken Type No Known Home Medications [No 10/01/18 10/01/18 Unknown History Reported Home Medications] ED Physical Exam - General Limitations: No Limitations - Other Other exam information: General: Alcohol intoxication Head exam: Atraumatic, normocephalic Eyes exam: Normal appearance ENT: Moist mucous membrane Neck exam: Normal inspection, full range of motion, no meningismus nontender Respiratory exam: Clear to auscultation bilateral, no wheezes, rales, crackles Cardiovascular: Normal rate and rhythm, right side chest wall tenderness Abdomen: Soft, nondistended, and nontender, with normal bowel sounds, no rebound, or guarding Extremity: Full range of motion normal inspection no deformity, no calf ten derness or leg asymmetry Back: Normal Inspection, full range of motion, no tenderness Neurologic: Sleeping but arousable, oriented x3, cranial nerves intact, no motor or sensory deficit Psychiatric: Alcohol intoxication Skin: Warm, dry, intact ED Course Vital Signs 10/01/18 10/01/18 10/01/18 01:12 05:41 06:42 Temperature 98.2 F 98.2 F Pulse Rate 111 H 68 94 H Respiratory 18 15 16 Rate Blood Pressure 107/76 Blood Pressure 111/66 124/82 [Left] O2 Sat by Pulse 99 98 96 Oximetry 10/01/18 10/01/18 07:54 09:30 Temperature 97.5 F L Pulse Rate 78 68 Respiratory 16 16 Rate Blood Pressure Blood Pressure 123/63 107/70 [Left] O2 Sat by Pulse 100 100 Oximetry - Reevaluation(s) Reevaluation #1: 10/01/18 11:24 pt slept during entire ed stay. we woke him up to feed him. he is clinically sober at this time and will be d/roman CHALO score - Chalo Score Age > 65: (0) No Aspirin use within the Past 7 Days: (0) No 3 or more CAD Risk Factors: (0) No 2 or more Angina events in past 24 hrs: (0) No Known CAD with more than 50% Stenosis: (0) No Elevated Cardiac Markers: (0) No ST Deviation Greater than 0.5mm: (0) No CHALO Score: 0 ED Medical Decision Making - Lab Data Result diagrams: 10/01/18 05:24 10/01/18 05:24 Lab Results 10/01/18 10/01/18 10/01/18 Range/Units 05:24 05:24 05:24 WBC 5.8 (4.5-11.0) K/mm3 RBC 3.75 (3.65-5.03) M/mm3 Hgb 11.4 L (11.8-15.2) gm/dl Hct 34.2 L (35.5-45.6) % MCV 91 (84-94) fl MCH 30 (28-32) pg MCHC 33 (32-34) % RDW 14.6 (13.2-15.2) % Plt Count 137 L (140-440) K/mm3 PT (12.2-14.9) Sec. INR (0.87-1.13) Sodium 138 (137-145) mmol/L Potassium 3.8 (3.6-5.0) mmol/L Chloride 101.8 (98-107) mmol/L Carbon Dioxide 23 (22-30) mmol/L Anion Gap 17 mmol/L BUN 8 L (9-20) mg/dL Creatinine 0.7 L (0.8-1.5) mg/dL Estimated GFR > 60 ml/min BUN/Creatinine Ratio 11 % Glucose 93 (75-100) mg/dL Calcium 8.3 L (8.4-10.2) mg/dL Magnesium 2.20 (1.7-2.3) mg/dL Total Creatine Kinase 462 H (55-170) units/L Troponin T < 0.010 (0.00-0.029) ng/mL Salicylates (2.8-20.0) mg/dL Acetaminophen (10.0-30.0) ug/mL Plasma/Serum Alcohol 0.15 H (0-0.07) % 10/01/18 10/01/18 10/01/18 Range/Units 05:33 05:33 05:38 WBC (4.5-11.0) K/mm3 RBC (3.65-5.03) M/mm3 Hgb (11.8-15.2) gm/dl Hct (35.5-45.6) % MCV (84-94) fl MCH (28-32) pg MCHC (32-34) % RDW (13.2-15.2) % Plt Count (140-440) K/mm3 PT 13.0 (12.2-14.9) Sec. INR 1.01 (0.87-1.13) Sodium (137-145) mmol/L Potassium (3.6-5.0) mmol/L Chloride (98-107) mmol/L Carbon Dioxide (22-30) mmol/L Anion Gap mmol/L BUN (9-20) mg/dL Creatinine (0.8-1.5) mg/dL Estimated GFR ml/min BUN/Creatinine Ratio % Glucose (75-100) mg/dL Calcium (8.4-10.2) mg/dL Magnesium (1.7-2.3) mg/dL Total Creatine Kinase (55-170) units/L Troponin T (0.00-0.029) ng/mL Salicylates < 0.3 L (2.8-20.0) mg/dL Acetaminophen < 5.0 L (10.0-30.0) ug/mL Plasma/Serum Alcohol (0-0.07) % 10/01/18 Range/Units 08:20 WBC (4.5-11.0) K/mm3 RBC (3.65-5.03) M/mm3 Hgb (11.8-15.2) gm/dl Hct (35.5-45.6) % MCV (84-94) fl MCH (28-32) pg MCHC (32-34) % RDW (13.2-15.2) % Plt Count (140-440) K/mm3 PT (12.2-14.9) Sec. INR (0.87-1.13) Sodium (137-145) mmol/L Potassium (3.6-5.0) mmol/L Chloride (98-107) mmol/L Carbon Dioxide (22-30) mmol/L Anion Gap mmol/L BUN (9-20) mg/dL Creatinine (0.8-1.5) mg/dL Estimated GFR ml/min BUN/Creatinine Ratio % Glucose (75-100) mg/dL Calcium (8.4-10.2) mg/dL Magnesium (1.7-2.3) mg/dL Total Creatine Kinase (55-170) units/L Troponin T < 0.010 (0.00-0.029) ng/mL Salicylates (2.8-20.0) mg/dL Acetaminophen (10.0-30.0) ug/mL Plasma/Serum Alcohol (0-0.07) % - EKG Data -: EKG Interpreted by De EKG shows normal: sinus rhythm, axis (qrs 31), intervals (pr 212), QRS complexes (qrsd 82), ST-T waves (no stemi) - EKG Data 10/01/18 08:11 reepat ekg at 7:51am with pr 199, pac, lae, no setmi, no acute changes - Radiology Data Radiology results: report reviewed (chest x-ray: No acute findings) - Medical Decision Making tx with Ivf, thiamine, folate in ed cp reproducible. Enzymes negative. EKG without acute ischemia. Patient had a negative stress test this year. Positive EtOH intoxication Patient discharged - Differential Diagnosis mi, costchondritis, etoh, dehydration, arrhythmia, ich Critical Care Time: No Critical care attestation.: If time is entered above; I have spent that time in minutes in the direct care of this critically ill patient, excluding procedure time. ED Disposition Clinical Impression: Acute alcohol intoxication, Chest wall pain Disposition: TO HOME OR SELFCARE Is pt being admited?: No Condition: Stable Instructions: Chest Pain (ED), Abuse of Alcohol (ED), Alcohol Intoxication (ED) Additional Instructions: Take Motirn or Tylenol as seated for pain. Follow up with your doctor or the clinic/doctor provided. Return if symptoms worsen as indicated by your discharge instructions Referrals: DOMONIQUE JUAREZ MD [Primary Care Provider] [facility] Time of Disposition: 11:27
[2018-10-01] MEDS ORDERED: FOLVITE PO SCH (08:00)
--- NOTE | 2018-10-01 08:19 | Cat Scan Report ---
CT HEAD WITHOUT CONTRAST INDICATION: states dizzy near syncoope TECHNIQUE: All CT scans at this location are performed using CT dose reduction for ALARA by means of automated exposure control. COMPARISON: None available. FINDINGS: BRAIN: No hemorrhage or mass effect are seen. No evidence of acute infarction is noted. ORBITS: Normal as visualized. SOFT TISSUES OF HEAD: Normal. CALVARIUM: Old right zygomatic arch fracture is seen with healing. Presumably old nasal fractures wit h deformity are seen. Some nonunion is noted. VISUALIZED PARANASAL SINUSES AND MASTOID AIR CELLS: Clear. ADDITIONAL FINDINGS: None. IMPRESSION: No acute intracranial abnormality. Signer Name: Carlos Mcclellan MD Signed: 10/01/2018 8:15 AM Workstation Name: [id number]
[2018-10-01] MEDS ORDERED: VITAMIN B-1 100 MG in NACL 0.9% 50 ML IV ONE (09:00)
[2018-10-01 11:49] VITALS: BP 119/76
== END 2018-10-01 11:49 | disposition home or self-care (01) ==
LOC: ED 01:10
DX: F10.129 Alcohol abuse with intoxication, unspecified (principal); R07.89 Other chest pain; I25.2 Old myocardial infarction; M54.9 Dorsalgia, unspecified; G89.29 Other chronic pain; M54.2 Cervicalgia; M25.562 Pain in left knee; Z98.890 Other specified postprocedural states
CPT/HCPCS: 36415; 70450; 71045; 80048; 82550; 83735; 84484; 85027; 85610; 93005; 93010; 96361; 96365; 96375; 99285; J3411; J7030; 80320; G0480

== ENCOUNTER 2018-10-06 00:28 | Emergency (ER) | payer SELFPAY ==
--- NOTE | 2018-10-06 02:26 | XRay Report ---
CHEST 1 VIEW INDICATION / CLINICAL INFORMATION: Chest Pain. COMPARISON: 10/01/2018 FINDINGS: SUPPORT DEVICES: None. HEART / MEDIASTINUM: No significant abnormality. LUNGS / PLEURA: No significant pulmonary or pleural abnormality. No pneumothorax. ADDITIONAL FINDINGS: No significant additional findings. IMPRESSION: No acute disease or interval change from 10/01/2018 Signer Name: Gilmar Milner MD FACR Signed: 10/06/2018 2:22 AM Workstation Name: [id number]
[2018-10-06 02:39] LABS: Basophils # (Auto) 0.1 K/mm3 (0.0-0.1); Basophils % (Auto) 1.4 % (0.0-1.8); Eosinophils # (Auto) 0.6 K/mm3 (0.0-0.4); Eosinophils % (Auto) 11.1 % (0.0-4.3); Hematocrit 30.2 % (35.5-45.6); Hemoglobin 10.3 gm/dl (11.8-15.2); Lymphocytes # (Auto) 1.3 K/mm3 (1.2-5.4); Lymphocytes % (Auto) 23.7 % (13.4-35.0); Mean Corpuscular HGB Conc 34 % (32-34); Mean Corpuscular Volume 92 fl (84-94); Monocytes # (Auto) 0.7 K/mm3 (0.0-0.8); Monocytes % (Auto) 12.3 % (0.0-7.3); Platelet Count 202 K/mm3 (140-440); Red Cell Distribution Width 15.4 % (13.2-15.2)
[2018-10-06 03:00] LABS: BUN/Creatinine Ratio 9; Blood Urea Nitrogen 6 mg/dL (9-20); Calcium 8.6 mg/dL (8.4-10.2); Hemolysis Index 6
[2018-10-06] MEDS ORDERED: TORADOL IM ONE (04:00)
--- NOTE | 2018-10-06 05:46 | Emergency Department Report ---
ED Chest Pain HPI - General Chief Complaint: Chest Pain Stated Complaint: CHEST PAIN, FAINT Time Seen by Provider: 10/06/18 03:28 Source: patient, old records reviewed Mode of arrival: Ambulatory Limitations: No Limitations - History of Present Illness Initial Comments: 57-year-old male with a past medical history of hypertension, chronic pain, and alcohol abuse presents to the hospital complains of anterior chest pain 2 days. Pain is sharp, constant course a palpation and movement. Pain 3 nonsustained intensity. He complains of shortness of breath and nausea. Patient has been seen here several times for similar type of pain. He complains of chronic left leg swelling secondary to previous injury and surgery which is unchanged. Patient does not have a history of PE/DVT and has had negative DVT PE workup here in the past. Patient had a negative stress test here in April. Severity scale (0 -10): 2 - Related Data Previous Rx's Medication Instructions Recorded Last Taken Type Famotidine [Pepcid] 20 mg PO BID #20 tablet 10/06/18 Unknown Rx Ibuprofen [Motrin] 800 mg PO Q8HR PRN #20 tablet 10/06/18 Unknown Rx Allergies Allergy/AdvReac Type Severity Reaction Status Date / Time No Known Allergies Allergy Verified 09/25/18 20:10 Heart Score - HEART Score History: Slightly suspicious EKG: Normal Age: 45-65 Risk factors: 1-2 risk factors Troponin: < normal limit HEART Score: 2 ED Review of Systems ROS: Stated complaint: CHEST PAIN, FAINT Other details as noted in HPI Comment: All other systems reviewed and negative ED Past Medical Hx - Past Medical History Previous Medical History?: Yes Hx Heart Attack/AMI: Yes Hx HIV: No Additional medical history: chronic pain in back, neck and L knee, ETOH abuse. herniated disc - Surgical History Past Surgical History?: Yes Additional Surgical History: Left Knee. skin graft to right hand - Social History Smoking Status: Never Smoker Substance Use Type: Alcohol - Medications Home Medications: Home Medications Medication Instructions Recorded Confirmed Last Taken Type Famotidine [Pepcid] 20 mg PO BID #20 tablet 10/06/18 Unknown Rx Ibuprofen [Motrin] 800 mg PO Q8HR PRN #20 tablet 10/06/18 Unknown Rx ED Physical Exam - General Limitations: No Limitations - Other Other exam information: General: No limitations, patient is alert in no acute distress Head exam: Atraumatic, normocephalic Eyes exam: Normal appearance, pupils equal reactive to light, extraocular movements intact ENT: Moist mucous membrane, normal oropharynx Neck exam: Normal inspection, full range of motion, no meningismus nontender Respiratory exam: Clear to auscultation bilateral, no wheezes, rales, crackles Cardiovascular: Normal rate and rhythm, normal heart sounds and reproducible anterior chest wall tenderness to palpation Abdomen: Soft, nondistended, and nontender, with normal bowel sounds, no re bound, or guarding Extremity: Full range of motion, left leg size mildly increased compared to the right without significant tenderness Back: Normal Inspection, full range of motion, no tenderness Neurologic: Alert, oriented x3, cranial nerves intact, no motor or sensory deficit Psychiatric: normal affect, normal mood Skin: Warm, dry, intact ED Course Vital Signs 10/06/18 10/06/18 10/06/18 01:52 02:48 03:00 Temperature 98.2 F Pulse Rate 100 H 115 H Respiratory 18 18 Rate Blood Pressure 130/83 121/89 127/94 O2 Sat by Pulse 100 95 99 Oximetry 10/06/18 10/06/18 10/06/18 03:30 03:36 04:00 Temperature Pulse Rate 93 H Respiratory 17 18 19 Rate Blood Pressure 120/76 120/76 O2 Sat by Pulse 100 Oximetry MERT score - Mert Score Age > 65: (0) No Aspirin use within the Past 7 Days: (0) No 3 or more CAD Risk Factors: (0) No 2 or more Angina events in past 24 hrs: (0) No Known CAD with more than 50% Stenosis: (0) No Elevated Cardiac Markers: (0) No ST Deviation Greater than 0.5mm: (0) No MERT Score: 0 ED Medical Decision Making - Lab Data Result diagrams: 10/06/18 02:04 10/06/18 02:04 Lab Results 10/06/18 10/06/18 Range/Units 02:04 02:04 WBC 5.3 (4.5-11.0) K/mm3 RBC 3.30 L (3.65-5.03) M/mm3 Hgb 10.3 L (11.8-15.2) gm/dl Hct 30.2 L (35.5-45.6) % MCV 92 (84-94) fl MCH 31 (28-32) pg MCHC 34 (32-34) % RDW 15.4 H (13.2-15.2) % Plt Count 202 (140-440) K/mm3 Lymph % (Auto) 23.7 (13.4-35.0) % [place] % (Auto) 12.3 H (0.0-7.3) % Eos % (Auto) 11.1 H (0.0-4.3) % Baso % (Auto) 1.4 (0.0-1.8) % Lymph # 1.3 (1.2-5.4) K/mm3 [place] # 0.7 (0.0-0.8) K/mm3 Eos # 0.6 H (0.0-0.4) K/mm3 Baso # 0.1 (0.0-0.1) K/mm3 Seg Neutrophils % 51.5 (40.0-70.0) % Seg Neutrophils # 2.7 (1.8-7.7) K/mm3 Sodium 137 (137-145) mmol/L Potassium 3.5 L (3.6-5.0) mmol/L Chloride 98.9 (98-107) mmol/L Carbon Dioxide 24 (22-30) mmol/L Anion Gap 18 mmol/L BUN 6 L (9-20) mg/dL Creatinine 0.7 L (0.8-1.5) mg/dL Estimated GFR > 60 ml/min BUN/Creatinine Ratio 9 % Glucose 101 H (75-100) mg/dL Calcium 8.6 (8.4-10.2) mg/dL Troponin T < 0.010 (0.00-0.029) ng/mL - EKG Data -: EKG Interpreted by Al EKG shows normal: sinus rhythm, axis (qrs 58), QRS complexes (qrsd 58), ST-T waves (no stemi/t inv) Rate: normal (98) - EKG Data When compared to previous EKG there are: no significant change - Radiology Data Radiology results: report reviewed CHEST 1 VIEW INDICATION / CLINICAL INFORMATION: Chest Pain. COMPARISON: 10/01/2018 FINDINGS: SUPPORT DEVICES: None. HEART / MEDIASTINUM: No significant abnormality. LUNGS / PLEURA: No significant pulmonary or pleural abnormality. No pneumothorax. ADDITIONAL FINDINGS: No significant additional findings. IMPRESSION: No acute disease or interval change from 10/01/2018 - Medical Decision Making Patient was again has reproducible anterior chest wall tenderness about signs of hypoxia persistent tachypnea or tachycardia. Patient given Toradol for pain. Patient is homeless and a chronic alcoholic. Discharged home to follow up with PMD - Differential Diagnosis RI, PE, A. fib with chest pain, costochondritis, pneumonia, pneumothorax Critical Care Time: No Critical care attestation.: If time is entered above; I have spent that time in minutes in the direct care of this critically ill patient, excluding procedure time. ED Disposition Clinical Impression: Chest wall pain, Alcoholism, Chronic pain Disposition: TO HOME OR SELFCARE Is pt being admited?: No Does the pt Need Aspirin: No Condition: Stable Instructions: Chest Pain (ED) Additional Instructions: Take the medication as prescribed. Follow up with your doctor or the cli margoth/doctor provided. Return if symptoms worsen as indicated by your discharge instructions Prescriptions: Ibuprofen [Motrin] 800 mg PO Q8HR PRN #20 tablet PRN Reason: Pain , Severe (7-10) Famotidine [Pepcid] 20 mg PO BID #20 tablet Referrals: DOMONIQUE JUAREZ MD [Primary Care Provider] - 3-5 Days Time of Disposition: 05:47
[2018-10-06 06:23] VITALS: BP 112/72
== END 2018-10-06 06:23 | disposition home or self-care (01) ==
LOC: ED 00:28
DX: R07.89 Other chest pain (principal); G89.29 Other chronic pain; F10.20 Alcohol dependence, uncomplicated; I10 Essential (primary) hypertension; I25.2 Old myocardial infarction; Z79.899 Other long term (current) drug therapy; Y90.1 Blood alcohol level of 20-39 mg/100 ml
CPT/HCPCS: 36415; 71045; 80048; 84484; 85025; 93005; 93010; 96372; 99284; J1885

== ENCOUNTER 2018-10-09 00:22 | Emergency (ER) | payer SELFPAY ==
[2018-10-09 00:35] VITALS: BP 102/70
[2018-10-09 01:05] LABS: Basophils # (Auto) 0.1 K/mm3 (0.0-0.1); Basophils % (Auto) 2.2 % (0.0-1.8); Eosinophils # (Auto) 0.7 K/mm3 (0.0-0.4); Eosinophils % (Auto) 12.5 % (0.0-4.3); Hematocrit 30.4 % (35.5-45.6); Hemoglobin 10.2 gm/dl (11.8-15.2); Mean Corpuscular HGB Conc 34 % (32-34); Mean Corpuscular Volume 93 fl (84-94); Monocytes # (Auto) 0.7 K/mm3 (0.0-0.8); Monocytes % (Auto) 12.1 % (0.0-7.3); Platelet Count 249 K/mm3 (140-440); Red Blood Count 3.29 M/mm3 (3.65-5.03); Red Cell Distribution Width 16.3 % (13.2-15.2)
--- NOTE | 2018-10-09 01:12 | XRay Report ---
CHEST 1 VIEW INDICATION / CLINICAL INFORMATION: Chest Pain. COMPARISON: None available. FINDINGS: SUPPORT DEVICES: None. HEART / MEDIASTINUM: No significant abnormality. LUNGS / PLEURA: No significant pulmonary or pleural abnormality. No pneumothorax. ADDITIONAL FINDINGS: No significant additional findings. IMPRESSION: No acute disease or interval change from 10/07/2018 Signer Name: Gilmar Milner MD FACR Signed: 10/09/2018 1:07 AM Workstation Name: [id number]
[2018-10-09 01:25] LABS: BUN/Creatinine Ratio 11; Blood Urea Nitrogen 8 mg/dL (9-20); Calcium 8.4 mg/dL (8.4-10.2); Hemolysis Index 8
== END 2018-10-09 01:50 | disposition left against medical advice (07) ==
LOC: ED 00:22
DX: M54.5 Low back pain (principal); Z53.21 Procedure and treatment not carried out due to patient leaving prior to being seen by health care provider
CPT/HCPCS: 36415; 71045; 80048; 80320; 84484; 85025; 93005; 93010; G0480

== ENCOUNTER 2018-10-09 06:02 | Observation (INO) | payer OTHER ==
--- NOTE | 2018-10-09 08:53 | Emergency Department Report ---
HPI - General Chief Complaint: Chest Pain Time Seen by Provider: 10/09/18 08:31 - [facility] HPI: Room 18 The patient is a 57-year-old male presented with a chief complaint of chest pain. Patient states since yesterday he has had intermittent substernal chest pain associated with dizziness and shortness of breath. Patient denies nausea/vomiting or diaphoresis. Patient came to the ED earlier this evening but eloped prior to evaluation. Patient had labs drawn at that time. Location: [See above] Duration: [See above] Quality: [See above] Severity: [See above] Modifying factors: [see above] Context: [see above] Mode of transportation: [not driving] ED Past Medical Hx - Past Medical History Previous Medical History?: Yes Hx CVA: Yes (left) Hx Heart Attack/AMI: Yes Additional medical history: chronic pain in back, neck and L knee, ETOH abuse. herniated disc - Surgical History Past Surgical History?: Yes Additional Surgical History: Left Knee. skin graft to right hand - Family History Family history: no significant - Social History Smoking Status: Never Smoker Substance Use Type: None (denies illicit drug use), Alcohol - Medications Home Medications: Home Medications Medication Instructions Recorded Confirmed Last Taken Type Famotidine [Pepcid] 20 mg PO BID #20 tablet 10/06/18 Unknown Rx Ibuprofen [Motrin] 800 mg PO Q8HR PRN #20 tablet 10/06/18 Unknown Rx ED Review of Systems ROS: Stated complaint: CHEST PAIN SOB Other details as noted in HPI Constitutional: no symptoms reported Eyes: denies: eye pain ENT: denies: throat pain Respiratory: shortness of breath Cardiovascular: chest pain Endocrine: no symptoms reported Gastrointestinal: denies: nausea, vomiting Genitourinary: denies: dysuria Musculoskeletal: denies: back pain Neurological: denies: headache Physical Exam - Physical Exam Vital Signs: Vital Signs 10/09/18 10/09/18 06:58 07:47 Temperature 97.6 F Pulse Rate 104 H Respiratory 18 18 Rate Blood Pressure 124/93 O2 Sat by Pulse 99 100 Oximetry Physical Exam: GENERAL: The patient is well-developed well-nourished male lying on stretcher sleeping not appearing to be in acute distress. [] HEENT: Normocephalic. Atraumatic. Extraocular motions are intact. Patient has moist mucous membranes. NECK: Supple. Trachea midline CHEST/LUNGS: Clear to auscultation. There is no respiratory distress noted. HEART/CARDIOVASCULAR: Regular. There is no tachycardia. There is no gallop rub or murmur. ABDOMEN: Abdomen is soft, nontender. Patient has normal bowel sounds. There is no abdominal distention. SKIN: There is no rash. There is no diaphoresis. NEURO: The patient is awake, alert, and oriented. The patient is cooperative. The patient has normal speech MUSCULOSKELETAL: There is no evidence of acute injury. ED Course Vital Signs 10/09/18 10/09/18 06:58 07:47 Temperature 97.6 F Pulse Rate 104 H Respiratory 18 18 Rate Blood Pressure 124/93 O2 Sat by Pulse 99 100 Oximetry ED Medical Decision Making - Lab Data Result diagrams: 10/09/18 09:01 10/09/18 09:01 Laboratory Tests 10/09/18 10/09/18 10/09/18 09:01 09:01 09:16 WBC 4.5 RBC 3.04 L Hgb 9.6 L Hct 28.1 L MCV 93 MCH 32 MCHC 34 RDW 16.7 H Plt Count 231 Lymph % (Auto) 28.7 [place] % (Auto) 12.3 H Eos % (Auto) 14.3 H Baso % (Auto) 2.2 H Lymph # 1.3 [place] # 0.6 Eos # 0.6 H Baso # 0.1 Seg Neutrophils % 42.5 Seg Neutrophils # 1.9 Sodium 139 Potassium 3.8 Chloride 102.2 Carbon Dioxide 25 Anion Gap 16 BUN 8 L Creatinine 0.9 Estimated GFR > 60 BUN/Creatinine Ratio 9 Glucose 98 Calcium 8.2 L Total Creatine Kinase 269 H CK-MB (CK-2) 2.7 CK-MB (CK-2) Rel Index 1.0 Troponin T < 0.010 Plasma/Serum Alcohol 0.17 H - EKG Data -: EKG Interpreted by Me EKG shows normal: sinus rhythm Rate: normal - EKG Data When compared to previous EKG there are: no significant change Interpretation: unchanged when compared t (10/09/2018) - Radiology Data Radiology results: report reviewed (chest x-ray performed 00:35), image reviewed (chest x-ray performed 00:35) interpreted by me: Chest x-ray (performed at 00:35)-no focal infiltrates, no pneumothorax [facility] [address] [place] [address] XRay Report Signed Patient: REBECCA ELIZABETH MR#: [id number] : 1960 Acct:[id number] Age/Sex: 57 / M ADM Date: 10/09/18 Loc: ED Attending Dr: Ordering Physician: KIERAN CANDELARIA DO Date of Service: 10/09/18 Procedure(s): XR chest 1V ap Accession Number(s): [id number] cc: KIERAN CANDELARIA DO Fluoro Time In Minutes: CHEST 1 VIEW INDICATION / CLINICAL INFORMATION: Chest Pain. COMPARISON: None available. FINDINGS: SUPPORT DEVICES: None. HEART / MEDIASTINUM: No significant abnormality. LUNGS / PLEURA: No significant pulmonary or pleural abnormality. No pneumothorax. ADDITIONAL FINDINGS: No significant additional findings. IMPRESSION: No acute disease or interval change from 10/07/2018 Signer Name: Gilmar Milner MD FACR Signed: 10/09/2018 1:07 AM Workstation Name: [id number] Transcribed By: MS Dictated By: Gilmar Milner MD [employer] Authenticated By: Gilmar Milner MD Signed Date/Time: 10/09/18106 DD/ 6 TD/TT: - Differential Diagnosis ACS, pericarditis, GERD Critical care attestation.: If time is entered above; I have spent that time in minutes in the direct care of this critically ill patient, excluding procedure time. ED Disposition Clinical Impression: Chest pain Disposition: OP ADMIT IP TO THIS HOSP Is pt being admited?: Yes Does the pt Need Aspirin: Yes Condition: Fair Instructions: Chest Pain (ED) Referrals: [facility] MD LEILANI [Primary Care Provider] - 3-5 Days Time of Disposition: 09:53 (hospitalist paged)
[2018-10-09] MEDS ORDERED: ASPIRIN PO ONE (08:54)
[2018-10-09] MEDS ORDERED: MAGNESIUM SULFATE 2GM/50ML 2 GM/50 ML BAG IV ONE (08:54)
[2018-10-09] MEDS ORDERED: VITAMIN B-1 100 MG, FOLVITE 1 MG, INFUVITE 10 ML in NACL 0.9% 1000 ML 1,000 ML IV ONE (08:54)
[2018-10-09 09:11] LABS: Basophils # (Auto) 0.1 K/mm3 (0.0-0.1); Basophils % (Auto) 2.2 % (0.0-1.8); Eosinophils # (Auto) 0.6 K/mm3 (0.0-0.4); Eosinophils % (Auto) 14.3 % (0.0-4.3); Hematocrit 28.1 % (35.5-45.6); Hemoglobin 9.6 gm/dl (11.8-15.2); Lymphocytes # (Auto) 1.3 K/mm3 (1.2-5.4); Lymphocytes % (Auto) 28.7 % (13.4-35.0); Mean Corpuscular HGB Conc 34 % (32-34); Mean Corpuscular Volume 93 fl (84-94); Monocytes # (Auto) 0.6 K/mm3 (0.0-0.8); Monocytes % (Auto) 12.3 % (0.0-7.3); Platelet Count 231 K/mm3 (140-440); Red Blood Count 3.04 M/mm3 (3.65-5.03); Red Cell Distribution Width 16.7 % (13.2-15.2)
[2018-10-09 09:28] LABS: Creatine Kinase MB 2.7 ng/mL (0.0-4.0)
[2018-10-09 09:29] LABS: BUN/Creatinine Ratio 9; Blood Urea Nitrogen 8 mg/dL (9-20); Calcium 8.2 mg/dL (8.4-10.2); Hemolysis Index 2
--- NOTE | 2018-10-09 10:24 | History and Physical Report ---
History of Present Illness Date of examination: 10/09/18 Date of admission: 10/09/18 09:55 Chief complaint: Chest pain History of present illness: 57-year-old male patient with a significant past medical history of chronic alcohol use presented to the emergency room multiple times in the month of September with chest pain, today again patient presented today with left-sided chest pain associated with mild dizziness and shortness of breath. Patient rates his chest pain between 5-6/10 at its peak, denies nausea or vomiting or abdominal pain Initial workup is consistent with alcohol intoxication and elevation of CK First set of cardiac enzymes negative As per medical records;Patient had negative stress test and normal ejection fraction in August 2017 Patient again had negative stress test and normal EF in April 2018 Past History Past Medical History: No medical history, other (chronic alcohol use) Past Surgical History: No surgical history Social history: lives with family, alcohol abuse. denies: smoking, IV drug use Family history: no significant family history Medications and Allergies Allergies Allergy/AdvReac Type Severity Reaction Status Date / Time No Known Allergies Allergy Verified 09/25/18 20:10 Home Medications Medication Instructions Recorded Confirmed Last Taken Type Famotidine [Pepcid] 20 mg PO BID #20 tablet 10/06/18 Unknown Rx Ibuprofen [Motrin] 800 mg PO Q8HR PRN #20 tablet 10/06/18 Unknown Rx Active Meds: Active Medications Thiamine HCl 100 mg/ Folic Acid 1 mg/ Multivitamins/Minerals 10 ml/ Sodium Chloride 1,011.2 mls @ 250 mls/hr IV ONCE ONE Stop: 10/09/18 12:56 Last Admin: 10/09/18 09:45 Dose: 250 mls/hr Documented by: Review of Systems Constitutional: no weight loss, no weight gain, no fever, no chills Ears, nose, mouth and throat: no nasal congestion, no nasal discharge Cardiovascular: chest pain, no orthopnea, no palpitations Respiratory: no cough with sputum, no shortness of breath Gastrointestinal: no abdominal pain, no nausea, no vomiting Genitourinary Male: no dysuria, no hematuria Musculoskeletal: no myalgias, no arthritis Integumentary: no rash, no lesions Neurological: no weakness, no seizures Psychiatric: no anxiety, no depression Endocrine: no cold intolerance, no heat intolerance Hematologic/Lymphatic: no easy bruising, no easy bleeding Allergic/Immunologic: no urticaria, no allergic rhinitis Exam - Constitutional Vitals: Temp Pulse Resp BP Pulse Ox 97.6 F 104 H 18 124/93 100 10/09/18 06:58 10/09/18 06:58 10/09/18 07:47 10/09/18 06:58 10/09/18 07:47 General appearance: Present: no acute distress, well-nourished - EENT Eyes: Present: PERRL, EOM intact - Neck Neck: Present: supple, normal ROM - Respiratory Respiratory effort: normal Respiratory: bilateral: diminished, negative: rales, rhonchi, wheezing - Cardiovascular Rhythm: regular Heart Sounds: Present: S1 & S2 - Extremities Extremities: no ischemia, No edema - Abdominal General gastrointestinal: Present: soft, non-tender, non-distended, normal bowel sounds - Integumentary Integumentary: Present: clear, warm, erythema (small abrasion scalp) - Musculoskeletal Musculoskeletal: strength equal bilaterally - Psychiatric Psychiatric: appropriate mood/affect, cooperative - Neurologic Neurologic: moves all extremities Results - Labs CBC & Chem 7: 10/09/18 09:01 10/09/18 09:01 Labs: Abnormal lab results 10/09/18 10/09/18 10/09/18 Range/Units 09:01 09:01 09:16 RBC 3.04 L (3.65-5.03) M/mm3 Hgb 9.6 L (11.8-15.2) gm/dl Hct 28.1 L (35.5-45.6) % RDW 16.7 H (13.2-15.2) % Sunflower % (Auto) 12.3 H (0.0-7.3) % Eos % (Auto) 14.3 H (0.0-4.3) % Baso % (Auto) 2.2 H (0.0-1.8) % Eos # 0.6 H (0.0-0.4) K/mm3 BUN 8 L (9-20) mg/dL Calcium 8.2 L (8.4-10.2) mg/dL Total Creatine Kinase 269 H (55-170) units/L Plasma/Serum Alcohol 0.17 H (0-0.07) % Assessment and Plan --Atypical chest pain; rule out acute coronary syndrome Serial cardiac enzymes, EKG as needed, patient had negative stress test 2 last 1 year Normal ejection fraction, supportive care --Alcohol intoxication; thiamine folic acid IV fluids Fall Precautions, IV fluids and antacid --Monitor alcohol withdrawal symptoms Ativan as needed --Chronic alcohol use; advised to quit alcohol Recommended alcohol rehabilitation program upon discharge --DVT prophylaxis; Lovenox --We'll monitor for alcohol withdrawal symptoms Ativan as needed, CIWA protocol if needed Plan of care is reviewed with the patient and his nurse Possible discharge tomorrow if stable
[2018-10-09 15:04] LABS: Creatine Kinase MB 2.8 ng/mL (0.0-4.0)
[2018-10-09] MEDS: NACL 0.9% 1000 ML 1,000 ML IV SCH (19:45)
[2018-10-09] MEDS ORDERED: ATIVAN IV PRN (20:04)
[2018-10-09] MEDS: PEPCID PO SCH (21:12)
[2018-10-09 21:52] LABS: Creatine Kinase MB 2.3 ng/mL (0.0-4.0)
[2018-10-09] MEDS ORDERED: LOVENOX SUB-Q SCH (22:00)
[2018-10-10 04:26] VITALS: BP 134/83
[2018-10-10 06:19] LABS: BUN/Creatinine Ratio 13; Blood Urea Nitrogen 8 mg/dL (9-20); Calcium 8.1 mg/dL (8.4-10.2); Hemolysis Index 13
[2018-10-10] MEDS: NACL 0.9% 1000 ML 1,000 ML IV SCH (08:48)
[2018-10-10] MEDS: PEPCID PO SCH (09:07)
[2018-10-10] MEDS ORDERED: FOLVITE PO SCH (10:00)
[2018-10-10] MEDS ORDERED: VITAMIN B-1 PO SCH (10:00)
[2018-10-10] MEDS ORDERED: ASPIRIN PO SCH (10:00)
--- NOTE | 2018-10-10 11:40 | Discharge Summary ---
Providers - Providers Date of Admission: 10/09/18 09:55 Date of discharge: 10/10/18 Attending physician: GARCIA PALM 10/09/18 19:26 Consult to Wound/ET Nurse [CONS] Routine Reason For Exam: wound eval [facility] Reason for admission: atypical chest pain/alcohol intoxication Condition: Fair Hospital course: 57-year-old male patient with a significant past medical history of chronic alcohol use presented to the emergency room multiple times in the month of September with chest pain, today again patient presented today with left-sided chest pain associated with mild dizziness and shortness of breath.Patient rates his chest pain between 5-6/10 at its peak, denies nausea or vomiting or abdominal pain Initial workup is consistent with alcohol intoxication and elevation of CK First set of cardiac enzymes negative As per medical records;Patient had negative stress test and normal ejection fraction in August 2017 Patient again had negative stress test and normal EF in April 2018 Symptomatically managed, cardiac enzymes negative, EKG no acute ST-T changes No evidence of alcohol withdrawal symptoms today Advised to quit alcohol intake and seek alcohol rehabilitation if needed Patient is alert awake oriented 3, ambulatory tolerating oral nutrition stable at discharge Discharge diagnosis; --Atypical chest pain; noncardiac Serial cardiac enzymes negative, EKG no acute ST-T changes patient had negative stress test 2[08/2017 and 04/1018] Normal ejection fraction, --GERD; probably the cause of atypical chest pain Pepcid --Alcohol intoxication; thiamine, folic acid , Prevacid --Monitor alcohol withdrawal ; no tremulousness /agitation and aggression No evidence of alcohol withdrawal symptoms --Chronic alcohol use; advised to quit alcohol Recommended voluntary alcohol rehabilitation program upon discharge --DVT prophylaxis; Lovenox Patient is stable at discharge Disposition: DC-01 TO HOME OR SELFCARE Time spent for discharge: 32 min Core Measure Documentation - Palliative Care Palliative Care/ Comfort Measures: Not Applicable - Core Measures Any of the following diagnoses?: none Exam - Constitutional Vitals: Temp Pulse Resp BP Pulse Ox 98.0 F 67 18 134/83 100 10/10/18 03:40 10/10/18 03:40 10/10/18 03:40 10/10/18 03:40 10/10/18 03:40 General appearance: Present: no acute distress, well-nourished - EENT Eyes: Present: PERRL, EOM intact - Neck Neck: Present: supple, normal ROM - Respiratory Respiratory effort: normal Respiratory: bilateral: diminished, negative: rales, rhonchi, wheezing - Cardiovascular Rhythm: regular Heart Sounds: Present: S1 & S2 - Extremities Extremities: no ischemia, No edema - Abdominal General gastrointestinal: Present: soft, non-tender, non-distended, normal bowel sounds - Integumentary Integumentary: Present: clear, warm - Musculoskeletal Musculoskeletal: strength equal bilaterally - Psychiatric Psychiatric: appropriate mood/affect, cooperative - Neurologic Neurologic: CNII-XII intact, moves all extremities Plan Activity: advance as tolerated, fall precautions Diet: regular Additional Instructions: Advised to quit alcohol intake. Advised to seek alcohol rehabilitation as needed Follow up with: DOMONIQUE JUAREZ MD [Primary Care Provider] - 3-5 Days Prescriptions: Folic Acid [Folvite] 1 mg PO QDAY #30 tablet Ibuprofen [Motrin 800 MG tab] 800 mg PO Q8HR PRN #20 tablet PRN Reason: Pain , Severe (7-10) Famotidine [Pepcid] 20 mg PO BID #30 tablet Thiamine [Vitamin B-1] 100 mg PO QDAY #30 tablet
== END 2018-10-10 14:50 | disposition home or self-care (01) ==
LOC: ED 06:02 → INTOOBSV 09:55 → 4A 09:55
PROVIDERS: ADMIT Internal Medicine; ATTEND Internal Medicine
DX: R07.89 Other chest pain (principal); K21.9 Gastro-esophageal reflux disease without esophagitis; G89.29 Other chronic pain; M54.9 Dorsalgia, unspecified; F10.129 Alcohol abuse with intoxication, unspecified; Z79.899 Other long term (current) drug therapy; Z86.73 Personal history of transient ischemic attack (TIA), and cerebral infarction without residual deficits
CPT/HCPCS: 36415; 80048; 82550; 82553; 83735; 84484; 85025; 93005; 93010; 96361; 96365; 96366; 96368; 96372; 99284; G0378; J1650; J3411; J3475; J7030; 80320; G0480

== ENCOUNTER 2018-10-11 01:09 | Emergency (ER) | payer SELFPAY ==
[2018-10-11 03:28] LABS: Hematocrit 31.8 % (35.5-45.6); Hemoglobin 10.9 gm/dl (11.8-15.2); Mean Corpuscular HGB Conc 34 % (32-34); Mean Corpuscular Volume 93 fl (84-94); Platelet Count 264 K/mm3 (140-440); Red Blood Count 3.43 M/mm3 (3.65-5.03); Red Cell Distribution Width 16.8 % (13.2-15.2)
[2018-10-11 03:32] LABS: Alanine Aminotransferase 66 units/L (7-56); BUN/Creatinine Ratio 11; Blood Urea Nitrogen 9 mg/dL (9-20); Calcium 8.5 mg/dL (8.4-10.2); Hemolysis Index 9
--- NOTE | 2018-10-11 05:44 | Emergency Department Report ---
ED Chest Pain HPI - General Chief Complaint: Chest Pain Stated Complaint: CP/SOB Time Seen by Provider: 10/11/18 05:42 Source: patient, EMS Mode of arrival: Ambulatory Limitations: Other - History of Present Illness Initial Comments: 57-year-old male presents to ED with complaint of midsternal chest pain, intermittent since yesterday. He was admitted in the hospital obs for chest pain and was d/c on 10/09/18. Pain started yesterday after drinking alcohol. Patient states pain is worse with movement of torso. The patient denies shortness of breath, nausea or vomiting, diaphoresis. Patient denies tobacco or drug use. Reports alcohol use. -: Gradual - Related Data Previous Rx's Medication Instructions Recorded Last Taken Type Famotidine [Pepcid] 20 mg PO BID #30 tablet 10/10/18 Unknown Rx Folic Acid [Folvite] 1 mg PO QDAY #30 tablet 10/10/18 Unknown Rx Ibuprofen [Motrin 800 MG tab] 800 mg PO Q8HR PRN #20 tablet 10/10/18 Unknown Rx Thiamine [Vitamin B-1] 100 mg PO QDAY #30 tablet 10/10/18 Unknown Rx Allergies Allergy/AdvReac Type Severity Reaction Status Date / Time No Known Allergies Allergy Verified 09/25/18 20:10 Heart Score - HEART Score History: Slightly suspicious EKG: Non-specific Age: 45-65 Risk factors: 1-2 risk factors Troponin: < normal limit HEART Score: 3 - Critical Actions Critical Actions: 0-3 pts:0.9-1.7%risk of adverse cardiac event.Candidate for discharge ED Review of Systems ROS: Stated complaint: CP/SOB Other details as noted in HPI Comment: All other systems reviewed and negative Cardiovascular: chest pain Gastrointestinal: denies: nausea, vomiting Genitourinary: denies: urgency, dysuria ED Past Medical Hx - Past Medical History Previous Medical History?: Yes Hx CVA: Yes (left) Hx Heart Attack/AMI: Yes Hx HIV: No Additional medical history: chronic pain in back, neck and L knee, ETOH abuse. herniated disc - Surgical History Past Surgical History?: Yes Additional Surgical History: Left Knee. skin graft to right hand - Social History Smoking Status: Current Every Day Smoker Substance Use Type: Alcohol - Medications Home Medications: Home Medications Medication Instructions Recorded Confirmed Last Taken Type Famotidine [Pepcid] 20 mg PO BID #30 tablet 10/10/18 Unknown Rx Folic Acid [Folvite] 1 mg PO QDAY #30 tablet 10/10/18 Unknown Rx Ibuprofen [Motrin 800 MG tab] 800 mg PO Q8HR PRN #20 tablet 10/10/18 Unknown Rx Thiamine [Vitamin B-1] 100 mg PO QDAY #30 tablet 10/10/18 Unknown Rx ED Physical Exam - General Limitations: No Limitations, Other General appearance: alert, in no apparent distress - Head Head exam: Present: atraumatic, normocephalic - Eye Eye exam: Present: normal appearance, PERRL, EOMI - ENT ENT exam: Present: normal exam, normal orophraynx - Neck Neck exam: Present: normal inspection - Respiratory Respiratory exam: Present: normal lung sounds bilaterally - Cardiovascular Cardiovascular Exam: Present: regular rate, normal rhythm - GI/Abdominal GI/Abdominal exam: Present: soft - Neurological Exam Neurological exam: Present: alert, oriented X3, other (appears intoxicated) - Skin Skin exam: Present: warm ED Course Vital Signs 10/11/18 10/11/18 01:15 05:45 Temperature 97.9 F 97.6 F Pulse Rate 95 H 81 Respiratory 18 18 Rate Blood Pressure 97/70 Blood Pressure 112/79 [Left] O2 Sat by Pulse 95 100 Oximetry MERT score - Mert Score Age > 65: (0) No Aspirin use within the Past 7 Days: (0) No 3 or more CAD Risk Factors: (0) No 2 or more Angina events in past 24 hrs: (0) No Known CAD with more than 50% Stenosis: (0) No Elevated Cardiac Markers: (0) No ST Deviation Greater than 0.5mm: (0) No MERT Score: 0 ED Medical Decision Making - Lab Data Result diagrams: 10/11/18 02:47 10/11/18 02:47 - Medical Decision Making Multiple visits for chest pain. Vitals, labs, EKG normal. Chest wall tenderness on exam which elicits pt's pain. appears intoxicated, after I told him his lab results, and advised him that he will be discharged when sober, he responded by saying :"this is my house, this hospital is my home". will repeat alcohol, will d/c when alcohol below legal limit. Critical care attestation.: If time is entered above; I have spent that time in minutes in the direct care of this critically ill patient, excluding procedure time. ED Disposition Clinical Impression: Alcoholism Chest pain Qualifiers: Chest pain type: other chest pain Qualified Code(s): R07.89 - Other chest pain; R07.8 - Other chest pain Acute alcohol intoxication Qualifiers: Complication of substance-induced condition: uncomplicated Qualified Code(s): F10.920 - Alcohol use, unspecified with intoxication, uncomplicated Disposition: DC-01 TO HOME OR SELFCARE Is pt being admited?: No Does the pt Need Aspirin: No Condition: Stable Instructions: Chest Pain (ED)
[2018-10-11] MEDS ORDERED: VITAMIN B-1 100 MG, FOLVITE 1 MG, INFUVITE 10 ML in NACL 0.9% 1000 ML 1,000 ML IV ONE (07:11)
[2018-10-11] MEDS ORDERED: TORADOL IV ONE (10:04)
[2018-10-11 11:38] VITALS: BP 126/71
--- NOTE | 2018-10-11 12:19 | Emergency Department Report ---
Blank Doc - Documentation Documentation: I was asked by the overnight ER physician, Dr. Olivier, to follow-up on the raven ent's alcohol levels and once he is sober he can be discharged home. The patient originally came in for the complaint of some chest discomfort and was found to have a blood alcohol level of 0.27. The 6 AM blood alcohol level was down to 0.19. The patient was given some IV fluid resuscitation with banana bag. His 9:30 AM blood alcohol level was at 0.09 and therefore the patient will be under the legal limit of 0.08 by the time of his discharge, around 11:30 AM. He has had negative troponins 2. He had a recent observational admission here for his chest pain and was discharged 2 days ago. He has a previous negative stress test in April of this year.
== END 2018-10-11 12:52 | disposition home or self-care (01) ==
LOC: ED 01:09
DX: R07.89 Other chest pain (principal); F10.920 Alcohol use, unspecified with intoxication, uncomplicated; F10.20 Alcohol dependence, uncomplicated; Y90.1 Blood alcohol level of 20-39 mg/100 ml; I25.2 Old myocardial infarction; I63.9 Cerebral infarction, unspecified; F17.200 Nicotine dependence, unspecified, uncomplicated; G89.29 Other chronic pain; Z79.899 Other long term (current) drug therapy
CPT/HCPCS: 36415; 80053; 82550; 82553; 84484; 85027; 93005; 93010; 96366; 96374; 96375; 99284; J1885; J3411; J7030; 80320; 96365; G0480

== ENCOUNTER 2018-10-13 23:16 | Emergency (ER) | payer SELFPAY ==
[2018-10-13] MEDS ORDERED: ASPIRIN PO ONE (23:38)
[2018-10-14 00:26] LABS: BUN/Creatinine Ratio 11; Blood Urea Nitrogen 9 mg/dL (9-20); Calcium 8.7 mg/dL (8.4-10.2); Hemolysis Index 2
[2018-10-14 00:48] LABS: Hematocrit 32.2 % (35.5-45.6); Hemoglobin 10.9 gm/dl (11.8-15.2); Mean Corpuscular HGB Conc 34 % (32-34); Mean Corpuscular Volume 95 fl (84-94); Platelet Count 241 K/mm3 (140-440); Red Blood Count 3.39 M/mm3 (3.65-5.03); Red Cell Distribution Width 17.4 % (13.2-15.2)
[2018-10-14] MEDS ORDERED: PEPCID PO ONE (01:45)
[2018-10-14] MEDS ORDERED: ATIVAN IM PRN (01:45)
[2018-10-14] MEDS ORDERED: HALDOL IM PRN (01:45)
[2018-10-14] MEDS ORDERED: CARAFATE PO ONE (01:45)
--- NOTE | 2018-10-14 01:46 | Emergency Department Report ---
<DEVIN DON III - Last Filed: 10/14/18 12:46> ED General Adult HPI - General Chief complaint: Chest Pain Stated complaint: TANVI Time Seen by Provider: 10/14/18 01:24 - Related Data Previous Rx's Medication Instructions Recorded Last Taken Type Ibuprofen [Motrin 800 MG tab] 800 mg PO Q8HR PRN #20 tablet 10/10/18 Unknown Rx Famotidine [Pepcid] 20 mg PO BID #30 tablet 10/14/18 Unknown Rx Folic Acid [Folvite] 1 mg PO QDAY #30 tablet 10/14/18 Unknown Rx Thiamine [Vitamin B-1] 100 mg PO QDAY #30 tablet 10/14/18 Unknown Rx Allergies Allergy/AdvReac Type Severity Reaction Status Date / Time No Known Allergies Allergy Verified 09/25/18 20:10 ED Past Medical Hx - Medications Home Medications: Home Medications Medication Instructions Recorded Confirmed Last Taken Type Ibuprofen [Motrin 800 MG tab] 800 mg PO Q8HR PRN #20 tablet 10/10/18 Unknown Rx Famotidine [Pepcid] 20 mg PO BID #30 tablet 10/14/18 Unknown Rx Folic Acid [Folvite] 1 mg PO QDAY #30 tablet 10/14/18 Unknown Rx Thiamine [Vitamin B-1] 100 mg PO QDAY #30 tablet 10/14/18 Unknown Rx ED Course - Reevaluation(s) Reevaluation #1: Patient was signed out to me at shift change from Dr. Barnes. Patient required serial blood alcohol checks for waiting for the patient to be clinically sober. Patient's blood alcohol has dropped below the legal limit and patient will be discharged home. I discussed all results with patient. Patient agrees with discharge. Patient will be discharged home I will activate previous doctors discharge instructions. Patient voiced understanding of discharge instructions. 10/14/18 12:46 ED Medical Decision Making - Lab Data Result diagrams: 10/13/18 23:46 10/13/18 23:46 ED Disposition Clinical Impression: Chest pain, Acute alcohol intoxication, Chronic pain Disposition: DC-01 TO HOME OR SELFCARE Condition: Stable Instructions: Chest Pain (ED) Additional Instructions: Discontinue consumption of alcohol. Take the prescribed medications as needed/directed. Follow up with the primary care doctor within the next month. Return to the emergency room right away with new, worsening or different symptoms, or symptoms not present on the initial emergency room evaluation. Prescriptions: Folic Acid [Folvite] 1 mg PO QDAY #30 tablet Famotidine [Pepcid] 20 mg PO BID #30 tablet Thiamine [Vitamin B-1] 100 mg PO QDAY #30 tablet Referrals: DOMONIQUE JUAREZ MD [Primary Care Provider] - 3-5 Days [facility] [Provider Group] - 3-5 Days [facility] [Provider Group] - 3-5 Days <ANDRE BARNES - Last Filed: 10/15/18 02:09> ED General Adult HPI - General Source: patient, EMS (ems notes not available at time of chart dictation), RN notes reviewed, old records reviewed Mode of arrival: Ambulatory Limitations: Other (the patient is intoxicated) - History of Present Illness Initial comments: This is a 57-year-old gentleman. The patient has a past medical history of alcohol use, and multiple visits to this hospital for chest pain. The patient had a negative cardiac nuclear stress test at this hospital in April 2018. Today, the patient presents with his usual constellation of symptoms, including chest pain, weakness, alcohol intoxication and questionable fall. Patient is a rambling and nonsensical historian, he is floridly intoxicated, and he is a poor historian. He is difficulty describing exacerbating or relieving factors with a qualitative nature of his symptoms. He makes no complaint of homicidality or suicidality. He is also asking to eat. -: unknown Location: chest Severity scale (0 -10): 9 Quality: other Consistency: other Improves with: other Worsens with: other ED Review of Systems ROS: Stated complaint: TANVI Other details as noted in HPI Comment: Unobtainable due to pts medical conditions Constitutional: denies: fever Cardiovascular: chest pain Gastrointestinal: denies: nausea, vomiting Psychiatric: denies: homicidal thoughts, suicidal thoughts ED Past Medical Hx - Past Medical History Previous Medical History?: Yes Hx CVA: Yes (left) Hx Heart Attack/AMI: Yes Hx HIV: No Additional medical history: chronic pain in back, neck and L knee, ETOH abuse. herniated disc - Surgical History Past Surgical History?: Yes Additional Surgical History: Left Knee. skin graft to right hand - Social History Smoking Status: Never Smoker Substance Use Type: Alcohol ED Physical Exam - General Limitations: Other (the patient is intoxicated) General appearance: in no apparent distress, appears intoxicated - Head Head exam: Present: atraumatic, normocephalic - Eye Eye exam: Present: normal appearance, EOMI. Absent: nystagmus - ENT ENT exam: Present: normal exam, normal orophraynx, mucous membranes moist, normal external ear exam - Neck Neck exam: Present: normal inspection, full ROM. Absent: tenderness, meningismus - Respiratory Respiratory exam: Present: normal lung sounds bilaterally. Absent: respiratory distress - Cardiovascular Cardiovascular Exam: Present: regular rate, normal rhythm, normal heart sounds. Absent: bradycardia, tachycardia, irregular rhythm, systolic murmur, diastolic murmur, rubs, gallop - GI/Abdominal GI/Abdominal exam: Present: soft. Absent: distended, tenderness, guarding, rebound, rigid, pulsatile mass - Rectal Rectal exam: Present: deferred - Extremities Exam Extremities exam: Present: normal inspection, full ROM, other (2+ pulses noted in the bilateral upper, lower extremities. Compartments soft. No long bony tenderness. The pelvis is stable.). Absent: pedal edema, joint swelling, calf tenderness - Back Exam Back exam: Present: normal inspection, full ROM. Absent: tenderness, CVA tenderness (R), CVA tenderness (L), paraspinal tenderness, vertebral tenderness - Neurological Exam Neurological exam: Present: alert, other (Extraocular movements intact. Tongue midline. No facial droop. Facial sensation intact to light touch in the V1, V2, V3 distribution bilaterally. 5 and 5 strength in 4 extremities.. Sensation is intact to light touch in 4 extremities.). Absent: motor sensory deficit - Psychiatric Psychiatric exam: Present: anxious - Skin Skin exam: Present: warm, dry ED Course Vital Signs 10/13/18 10/14/18 10/14/18 23:34 01:31 01:48 Temperature 97.5 F L 98.3 F Pulse Rate 104 H 91 H Respiratory 16 16 17 Rate Blood Pressure 110/79 Blood Pressure 113/75 [Left] O2 Sat by Pulse 99 100 100 Oximetry 10/14/18 10/14/18 10/14/18 03:00 04:25 05:00 Temperature Pulse Rate 76 81 93 H Respiratory 16 14 15 Rate Blood Pressure 113/75 91/48 107/67 Blood Pressure [Left] O2 Sat by Pulse 96 100 97 Oximetry 10/14/18 10/14/18 10/14/18 06:00 06:38 07:00 Temperature Pulse Rate 101 H 76 108 H Respiratory 14 16 15 Rate Blood Pressure 107/67 125/79 Blood Pressure 107/61 [Left] O2 Sat by Pulse 97 97 99 Oximetry 10/14/18 10/14/18 10/14/18 08:00 09:00 10:01 Temperature Pulse Rate 121 H 87 105 H Respiratory 12 15 12 Rate Blood Pressure 117/86 124/67 137/62 Blood Pressure [Left] O2 Sat by Pulse 99 98 99 Oximetry 10/14/18 10/14/18 10/14/18 11:01 12:00 13:00 Temperature Pulse Rate 76 75 107 H Respiratory 12 15 15 Rate Blood Pressure 103/56 107/61 110/80 Blood Pressure [Left] O2 Sat by Pulse 99 100 100 Oximetry ED Medical Decision Making - Lab Data Result diagrams: 10/13/18 23:46 10/13/18 23:46 Vital Signs 10/13/18 10/14/18 10/14/18 23:34 01:31 01:48 Temperature 97.5 F L 98.3 F Pulse Rate 104 H 91 H Respiratory 16 16 17 Rate Blood Pressure 110/79 Blood Pressure 113/75 [Left] O2 Sat by Pulse 99 100 100 Oximetry 10/14/18 10/14/18 03:00 04:25 Temperature Pulse Rate 76 81 Respiratory 16 14 Rate Blood Pressure 113/75 91/48 Blood Pressure [Left] O2 Sat by Pulse 96 100 Oximetry Lab Results 10/13/18 10/13/18 10/14/18 Range/Units 23:46 23:46 02:20 WBC 5.6 (4.5-11.0) K/mm3 RBC 3.39 L (3.65-5.03) M/mm3 Hgb 10.9 L (11.8-15.2) gm/dl Hct 32.2 L (35.5-45.6) % MCV 95 H (84-94) fl MCH 32 (28-32) pg MCHC 34 (32-34) % RDW 17.4 H (13.2-15.2) % Plt Count 241 (140-440) K/mm3 Add Manual Diff Complete Total Counted 100 Seg Neuts % (Manual) 51.0 (40.0-70.0) % Band Neutrophils % 0 % Lymphocytes % (Manual) 31.0 (13.4-35.0) % Reactive Lymphs % (Man) 0 % Monocytes % (Manual) 10.0 H (0.0-7.3) % Eosinophils % (Manual) 6.0 H (0.0-4.3) % Basophils % (Manual) 2.0 H (0.0-1.8) % Metamyelocytes % 0 % Myelocytes % 0 % Promyelocytes % 0 % Blast Cells % 0 % Nucleated RBC % Not Reportable Seg Neutrophils # Man 2.9 (1.8-7.7) K/mm3 Band Neutrophils # 0.0 K/mm3 Lymphocytes # (Manual) 1.7 (1.2-5.4) K/mm3 Abs React Lymphs (Man) 0.0 K/mm3 Monocytes # (Manual) 0.6 (0.0-0.8) K/mm3 Eosinophils # (Manual) 0.3 (0.0-0.4) K/mm3 Basophils # (Manual) 0.1 (0.0-0.1) K/mm3 Metamyelocytes # 0.0 K/mm3 Myelocytes # 0.0 K/mm3 Promyelocytes # 0.0 K/mm3 Blast Cells # 0.0 K/mm3 WBC Morphology Not Reportable Hypersegmented Neuts Not Reportable Hyposegmented Neuts Not Reportable Hypogranular Neuts Not Reportable Smudge Cells Not Reportable Toxic Granulation Not Reportable Toxic Vacuolation Not Reportable Dohle Bodies Not Reportable Pelger-Huet Anomaly Not Reportable Katie Rods Not Reportable Platelet Estimate Consistent w auto Clumped Platelets Not Reportable Plt Clumps, EDTA Not Reportable Large Platelets Not Reportable Giant Platelets Not Reportable Platelet Satelliting Not Reportable Plt Morphology Comment Not Reportable RBC Morphology Not Reportable Dimorphic RBCs Not Reportable Polychromasia Not Reportable Hypochromasia Not Reportable Poikilocytosis Few Anisocytosis Few Microcytosis Not Reportable Macrocytosis Not Reportable Spherocytes Not Reportable Pappenheimer Bodies Not Reportable Sickle Cells Not Reportable Target Cells Rare Tear Drop Cells Not Reportable Ovalocytes Not Reportable Helmet Cells Not Reportable Torres-[place] Bodies Not Reportable Stanley Rings Not Reportable Celoron Cells Not Reportable Bite Cells Not Reportable Crenated Cell Not Reportable Elliptocytes Not Reportable Acanthocytes (Spur) Not Reportable Rouleaux Not Reportable Hemoglobin C Crystals Not Reportable Schistocytes Not Reportable Malaria parasites Not Reportable Connor Bodies Not Reportable Hem Pathologist Commnt No Sodium 134 L (137-145) mmol/L Potassium 4.4 (3.6-5.0) mmol/L Chloride 100.2 (98-107) mmol/L Carbon Dioxide 21 L (22-30) mmol/L Anion Gap 17 mmol/L BUN 9 (9-20) mg/dL Creatinine 0.8 (0.8-1.5) mg/dL Estimated GFR > 60 ml/min BUN/Creatinine Ratio 11 % Glucose 87 (75-100) mg/dL Calcium 8.7 (8.4-10.2) mg/dL Magnesium (1.7-2.3) mg/dL Total Creatine Kinase (55-170) units/L Troponin T < 0.010 < 0.010 (0.00-0.029) ng/mL Salicylates (2.8-20.0) mg/dL Acetaminophen (10.0-30.0) ug/mL Plasma/Serum Alcohol (0-0.07) % 10/14/18 10/14/18 10/14/18 Range/Units 02:20 02:20 02:20 WBC (4.5-11.0) K/mm3 RBC (3.65-5.03) M/mm3 Hgb (11.8-15.2) gm/dl Hct (35.5-45.6) % MCV (84-94) fl MCH (28-32) pg MCHC (32-34) % RDW (13.2-15.2) % Plt Count (140-440) K/mm3 Add Manual Diff Total Counted Seg Neuts % (Manual) (40.0-70.0) % Band Neutrophils % % Lymphocytes % (Manual) (13.4-35.0) % Reactive Lymphs % (Man) % Monocytes % (Manual) (0.0-7.3) % Eosinophils % (Manual) (0.0-4.3) % Basophils % (Manual) (0.0-1.8) % Metamyelocytes % % Myelocytes % % Promyelocytes % % Blast Cells % % Nucleated RBC % Seg Neutrophils # Man (1.8-7.7) K/mm3 Band Neutrophils # K/mm3 Lymphocytes # (Manual) (1.2-5.4) K/mm3 Abs React Lymphs (Man) K/mm3 Monocytes # (Manual) (0.0-0.8) K/mm3 Eosinophils # (Manual) (0.0-0.4) K/mm3 Basophils # (Manual) (0.0-0.1) K/mm3 Metamyelocytes # K/mm3 Myelocytes # K/mm3 Promyelocytes # K/mm3 Blast Cells # K/mm3 WBC Morphology Hypersegmented Neuts Hyposegmented Neuts Hypogranular Neuts Smudge Cells Toxic Granulation Toxic Vacuolation Dohle Bodies Pelger-Huet Anomaly Katie Rods Platelet Estimate Clumped Platelets Plt Clumps, EDTA Large Platelets Giant Platelets Platelet Satelliting Plt Morphology Comment RBC Morphology Dimorphic RBCs Polychromasia Hypochromasia Poikilocytosis Anisocytosis Microcytosis Macrocytosis Spherocytes Pappenheimer Bodies Sickle Cells Target Cells Tear Drop Cells Ovalocytes Helmet Cells Torres-[place] Bodies Stanley Rings Celoron Cells Bite Cells Crenated Cell Elliptocytes Acanthocytes (Spur) Rouleaux Hemoglobin C Crystals Schistocytes Malaria parasites Connor Bodies Hem Pathologist Commnt Sodium (137-145) mmol/L Potassium (3.6-5.0) mmol/L Chloride (98-107) mmol/L Carbon Dioxide (22-30) mmol/L Anion Gap mmol/L BUN (9-20) mg/dL Creatinine (0.8-1.5) mg/dL Estimated GFR ml/min BUN/Creatinine Ratio % Glucose (75-100) mg/dL Calcium (8.4-10.2) mg/dL Magnesium 2.30 (1.7-2.3) mg/dL Total Creatine Kinase 241 H (55-170) units/L Troponin T (0.00-0.029) ng/mL Salicylates < 0.3 L (2.8-20.0) mg/dL Acetaminophen < 5.0 L (10.0-30.0) ug/mL Plasma/Serum Alcohol (0-0.07) % 10/14/18 Range/Units 02:20 WBC (4.5-11.0) K/mm3 RBC (3.65-5.03) M/mm3 Hgb (11.8-15.2) gm/dl Hct (35.5-45.6) % MCV (84-94) fl MCH (28-32) pg MCHC (32-34) % RDW (13.2-15.2) % Plt Count (140-440) K/mm3 Add Manual Diff Total Counted Seg Neuts % (Manual) (40.0-70.0) % Band Neutrophils % % Lymphocytes % (Manual) (13.4-35.0) % Reactive Lymphs % (Man) % Monocytes % (Manual) (0.0-7.3) % Eosinophils % (Manual) (0.0-4.3) % Basophils % (Manual) (0.0-1.8) % Metamyelocytes % % Myelocytes % % Promyelocytes % % Blast Cells % % Nucleated RBC % Seg Neutrophils # Man (1.8-7.7) K/mm3 Band Neutrophils # K/mm3 Lymphocytes # (Manual) (1.2-5.4) K/mm3 Abs React Lymphs (Man) K/mm3 Monocytes # (Manual) (0.0-0.8) K/mm3 Eosinophils # (Manual) (0.0-0.4) K/mm3 Basophils # (Manual) (0.0-0.1) K/mm3 Metamyelocytes # K/mm3 Myelocytes # K/mm3 Promyelocytes # K/mm3 Blast Cells # K/mm3 WBC Morphology Hypersegmented Neuts Hyposegmented Neuts Hypogranular Neuts Smudge Cells Toxic Granulation Toxic Vacuolation Dohle Bodies Pelger-Huet Anomaly Katie Rods Platelet Estimate Clumped Platelets Plt Clumps, EDTA Large Platelets Giant Platelets Platelet Satelliting Plt Morphology Comment RBC Morphology Dimorphic RBCs Polychromasia Hypochromasia Poikilocytosis Anisocytosis Microcytosis Macrocytosis Spherocytes Pappenheimer Bodies Sickle Cells Target Cells Tear Drop Cells Ovalocytes Helmet Cells Torres-[place] Bodies Stanley Rings Lisa Cells Bite Cells Crenated Cell Elliptocytes Acanthocytes (Spur) Rouleaux Hemoglobin C Crystals Schistocytes Malaria parasites Connor Bodies Hem Pathologist Commnt Sodium (137-145) mmol/L Potassium (3.6-5.0) mmol/L Chloride (98-107) mmol/L Carbon Dioxide (22-30) mmol/L Anion Gap mmol/L BUN (9-20) mg/dL Creatinine (0.8-1.5) mg/dL Estimated GFR ml/min BUN/Creatinine Ratio % Glucose (75-100) mg/dL Calcium (8.4-10.2) mg/dL Magnesium (1.7-2.3) mg/dL Total Creatine Kinase (55-170) units/L Troponin T (0.00-0.029) ng/mL Salicylates (2.8-20.0) mg/dL Acetaminophen (10.0-30.0) ug/mL Plasma/Serum Alcohol 0.18 H (0-0.07) % - EKG Data -: EKG Interpreted by Wy EKG shows normal: sinus rhythm Rate: normal - EKG Data 10/14/18 05:39 EKG #1 shows a sinus rhythm, 93 bpm, normal axis, IL interval prolonged, poor R wave progression, left ventricular hypertrophy, motion artifact, the EKG is not consistent with ST elevation myocardial infarction. EKG #2 is unchanged. Both EKGs are unchanged from prior EKG from October 2018 - Radiology Data Radiology results: report reviewed, image reviewed X-ray the chest is negative for acute disease. Noncontrast CT scan of the brain and cervical spine negative for acute disease. - Medical Decision Making Differential diagnosis, including but not limited to, alcohol intoxication, intracranial injury, cervical spine injury, GERD, gastritis, pneumonia, acute coronary syndrome, malingering, secondary gain Assessment and plan: 57-year-old gentleman who is clinically intoxicated. Screening laboratory studies corroborate this. Additional laboratory studies unremarkable. Troponin negative 2. EKG unchanged 2. CT scan of the brain, cervical spine negative for acute disease. The patient is sleeping comfortably in his stretcher. He is in no acute distress. He is noted to be walking by myself earlier on today. He is not tachycardic, he is not tachypneic, he is not hypoxic. Doubt pulmonary embolism. Has equal pulses in the upper, lower extremities, x-ray of the chest unremarkable, aortic disease unlikely. Patient frequently presents to this ER with chest pain and alcohol intoxication. He is placed on a hold and we will await clinical sobriety. Care will be transferred to the oncoming ER physician, DR Perfecto Don to reassess when clinically sober. Anticipate discharge. Critical care attestation.: If time is entered above; I have spent that time in minutes in the direct care of this critically ill patient, excluding procedure time. ED Disposition Is pt being admited?: No Does the pt Need Aspirin: No
--- NOTE | 2018-10-14 02:47 | Cat Scan Report ---
Head CT without intravenous contrast INDICATION: Closed head trauma tonight COMPARISON: 10/01/2018 FINDINGS: moderate atrophic changes are again seen. There is no hemorrhage or extra-axial fluid juanpablo ection. No edema or mass effect. There is a small left frontal hematoma and possibly laceration. Port ions of the sinuses visualized are clear. No skull fracture. No significant abnormality. IMPRESSION: Negative head CT Automated exposure control was utilized to diminish radiation dose Signer Name: Tom Montes De Oca MD Signed: 10/14/2018 2:43 AM Workstation Name: [id number]
--- NOTE | 2018-10-14 02:49 | XRay Report ---
CHEST 1 VIEW INDICATION / CLINICAL INFORMATION: Chest Pain. COMPARISON: 10/09/2018 FINDINGS: SUPPORT DEVICES: None. HEART / MEDIASTINUM: No significant abnormality. LUNGS / PLEURA: No significant pulmonary or pleural abnormality. No pneumothorax. ADDITIONAL FINDINGS: No significant additional findings. IMPRESSION: 1. No significant change Signer Name: Tom Montes De Oca MD Signed: 10/14/2018 2:44 AM Workstation Name: [id number]
--- NOTE | 2018-10-14 02:54 | Cat Scan Report ---
CT of the cervical spine INDICATION: Neck pain following fall tonight FINDINGS: The vertebral body heights are intact with no compression fractures seen. There is slight d isc space narrowing at C6-C7 with anterior spurring at C5-C6 and C6-C7. No subluxation is seen. No po sterior element fracture. There is no epidural hematoma. Only slight facet arthropathy seen at severa l levels. No significant abnormality. IMPRESSION: Slight cervical spondylosis. All CT scans at this location are performed using CT dose reduction for ALARA by means of automated e xposure control Signer Name: Tom Montes De Oca MD Signed: 10/14/2018 2:50 AM Workstation Name: [id number]
[2018-10-14 04:36] LABS: Total Cells Counted 100
[2018-10-14 04:37] LABS: Anisocytosis Few; Platelet Estimate Consistent w Auto; Poikilocytosis Few; Target Cells Rare
[2018-10-14 13:39] VITALS: BP 110/80
== END 2018-10-14 13:39 | disposition home or self-care (01) ==
LOC: ED 23:16
DX: R07.89 Other chest pain (principal); F12.10 Cannabis abuse, uncomplicated; G89.29 Other chronic pain
CPT/HCPCS: 36415; 70450; 71045; 72125; 80048; 80320; 82550; 83735; 84484; 85007; 85025; 93005; 93010; 96374; G0480

== ENCOUNTER 2018-10-15 23:31 | Emergency (ER) | payer OTHER ==
[2018-10-16] MEDS ORDERED: ASPIRIN PO ONE (00:08)
[2018-10-16 00:24] LABS: Basophils # (Auto) 0.1 K/mm3 (0.0-0.1); Basophils % (Auto) 1.4 % (0.0-1.8); Eosinophils # (Auto) 0.5 K/mm3 (0.0-0.4); Eosinophils % (Auto) 9.8 % (0.0-4.3); Hematocrit 32.3 % (35.5-45.6); Hemoglobin 10.7 gm/dl (11.8-15.2); Lymphocytes # (Auto) 1.6 K/mm3 (1.2-5.4); Lymphocytes % (Auto) 29.9 % (13.4-35.0); Mean Corpuscular HGB Conc 33 % (32-34); Mean Corpuscular Volume 94 fl (84-94); Monocytes # (Auto) 0.9 K/mm3 (0.0-0.8); Platelet Count 228 K/mm3 (140-440); Red Blood Count 3.42 M/mm3 (3.65-5.03); Red Cell Distribution Width 16.8 % (13.2-15.2)
[2018-10-16 00:39] LABS: BUN/Creatinine Ratio 11; Blood Urea Nitrogen 8 mg/dL (9-20); Calcium 8.5 mg/dL (8.4-10.2); Hemolysis Index 5
--- NOTE | 2018-10-16 01:07 | XRay Report ---
. CHEST 1 VIEW INDICATION / CLINICAL INFORMATION: Chest Pain. COMPARISON: 10/14/2018 FINDINGS: SUPPORT DEVICES: None. HEART / MEDIASTINUM: No significant abnormality. LUNGS / PLEURA: No significant pulmonary or pleural abnormality. No pneumothorax. ADDITIONAL FINDINGS: No significant additional findings. IMPRESSION: 1. No significant change Signer Name: Tom Montes De Oca MD Signed: 10/16/2018 1:03 AM Workstation Name: [id number]
--- NOTE | 2018-10-16 03:14 | Emergency Department Report ---
ED Chest Pain HPI - General Chief Complaint: Chest Pain Stated Complaint: CHEST PAIN Time Seen by Provider: 10/16/18 01:18 Source: patient Mode of arrival: Ambulatory Limitations: No Limitations - History of Present Illness Initial Comments: Patient is a 57-year-old male with past medical history of alcohol abuse who is presenting with 2 days of chest pain. Patient had negative stress test April 2018.. Patient is seen in the emergency department quite frequently for atypical chest pain likely secondary to his alcohol abuse. Hernandez aguirre states his pain and this episode has been present and constant for the past 2 days. Patient states there is no associated shortness of breath. Patient denies nausea vomiting but does state he has a mild dry cough. Patient denies any diaphoresis or syncope. Patient also states for the last several days he has had some swelling to the right forearm with pain. States pain is achy in nature. It is worse with palpation. - Related Data Previous Rx's Medication Instructions Recorded Last Taken Type Ibuprofen [Motrin 800 MG tab] 800 mg PO Q8HR PRN #20 tablet 10/10/18 Unknown Rx Famotidine [Pepcid] 20 mg PO BID #30 tablet 10/14/18 Unknown Rx Folic Acid [Folvite] 1 mg PO QDAY #30 tablet 10/14/18 Unknown Rx Thiamine [Vitamin B-1] 100 mg PO QDAY #30 tablet 10/14/18 Unknown Rx Clindamycin [Clindamycin CAP] 300 mg PO Q8H #21 cap 10/16/18 Unknown Rx Famotidine [Pepcid] 40 mg PO QHS #10 tablet 10/16/18 Unknown Rx Pantoprazole [Protonix] 40 mg PO QDAY #30 tablet 10/16/18 Unknown Rx traMADol [Ultram] 50 mg PO Q6HR PRN #10 tablet 10/16/18 Unknown Rx Allergies Allergy/AdvReac Type Severity Reaction Status Date / Time No Known Allergies Allergy Verified 09/25/18 20:10 Heart Score - HEART Score History: Slightly suspicious EKG: Non-specific Age: 45-65 Risk factors: No known risk factors Troponin: < normal limit HEART Score: 2 ED Review of Systems ROS: Stated complaint: CHEST PAIN Other details as noted in HPI Comment: All other systems reviewed and negative ED Past Medical Hx - Past Medical History Previous Medical History?: Yes Hx CVA: Yes (left) Hx Heart Attack/AMI: Yes Hx HIV: No Additional medical history: chronic pain in back, neck and L knee, ETOH abuse. herniated disc - Surgical History Past Surgical History?: Yes Additional Surgical History: Left Knee. skin graft to right hand - Social History Smoking Status: Never Smoker Substance Use Type: Alcohol - Medications Home Medications: Home Medications Medication Instructions Recorded Confirmed Last Taken Type Ibuprofen [Motrin 800 MG tab] 800 mg PO Q8HR PRN #20 tablet 10/10/18 Unknown Rx Famotidine [Pepcid] 20 mg PO BID #30 tablet 10/14/18 Unknown Rx Folic Acid [Folvite] 1 mg PO QDAY #30 tablet 10/14/18 Unknown Rx Thiamine [Vitamin B-1] 100 mg PO QDAY #30 tablet 10/14/18 Unknown Rx Clindamycin [Clindamycin CAP] 300 mg PO Q8H #21 cap 10/16/18 Unknown Rx Famotidine [Pepcid] 40 mg PO QHS #10 tablet 10/16/18 Unknown Rx Pantoprazole [Protonix] 40 mg PO QDAY #30 tablet 10/16/18 Unknown Rx traMADol [Ultram] 50 mg PO Q6HR PRN #10 tablet 10/16/18 Unknown Rx ED Physical Exam - General Limitations: No Limitations General appearance: alert, in no apparent distress, appears intoxicated - Head Head exam: Present: atraumatic, normocephalic - Eye Eye exam: Present: normal appearance, PERRL, EOMI - ENT ENT exam: Present: mucous membranes moist - Neck Neck exam: Present: normal inspection - Respiratory Respiratory exam: Present: normal lung sounds bilaterally. Absent: respiratory distress, wheezes, rales, rhonchi - Cardiovascular Cardiovascular Exam: Present: regular rate, normal rhythm. Absent: systolic murmur, diastolic murmur, rubs, gallop - GI/Abdominal GI/Abdominal exam: Present: soft, normal bowel sounds. Absent: distended, tenderness, guarding, rebound - Rectal Rectal exam: Present: deferred - Extremities Exam Extremities exam: Present: normal inspection - Back Exam Back exam: Present: normal inspection - Neurological Exam Neurological exam: Present: alert, oriented X3 - Psychiatric Psychiatric exam: Present: normal affect, normal mood - Skin Skin exam: Present: warm, dry, intact, normal color, other (patient lives induration to the skin to the right forearm laterally.). Absent: rash ED Course Vital Signs 10/15/18 10/16/18 23:44 00:09 Temperature 97.9 F 97.9 F Pulse Rate 100 H 101 H Respiratory 18 16 Rate Blood Pressure 118/76 118/76 O2 Sat by Pulse 98 99 Oximetry CHALO score - Chalo Score Age > 65: (0) No Aspirin use within the Past 7 Days: (0) No 3 or more CAD Risk Factors: (0) No 2 or more Angina events in past 24 hrs: (0) No Known CAD with more than 50% Stenosis: (0) No Elevated Cardiac Markers: (0) No ST Deviation Greater than 0.5mm: (0) No CHALO Score: 0 ED Medical Decision Making - Lab Data Result diagrams: 10/16/18 00:10 10/16/18 00:10 Lab Results 10/16/18 10/16/18 10/16/18 Range/Units 00:10 00:10 00:10 WBC 5.4 (4.5-11.0) K/mm3 RBC 3.42 L (3.65-5.03) M/mm3 Hgb 10.7 L (11.8-15.2) gm/dl Hct 32.3 L (35.5-45.6) % MCV 94 (84-94) fl MCH 31 (28-32) pg MCHC 33 (32-34) % RDW 16.8 H (13.2-15.2) % Plt Count 228 (140-440) K/mm3 Lymph % (Auto) 29.9 (13.4-35.0) % Whitley % (Auto) 16.0 H (0.0-7.3) % Eos % (Auto) 9.8 H (0.0-4.3) % Baso % (Auto) 1.4 (0.0-1.8) % Lymph # 1.6 (1.2-5.4) K/mm3 Whitley # 0.9 H (0.0-0.8) K/mm3 Eos # 0.5 H (0.0-0.4) K/mm3 Baso # 0.1 (0.0-0.1) K/mm3 Seg Neutrophils % 42.9 (40.0-70.0) % Seg Neutrophils # 2.3 (1.8-7.7) K/mm3 Sodium 139 (137-145) mmol/L Potassium 4.1 (3.6-5.0) mmol/L Chloride 102.3 (98-107) mmol/L Carbon Dioxide 23 (22-30) mmol/L Anion Gap 18 mmol/L BUN 8 L (9-20) mg/dL Creatinine 0.7 L (0.8-1.5) mg/dL Estimated GFR > 60 ml/min BUN/Creatinine Ratio 11 % Glucose 80 (75-100) mg/dL Calcium 8.5 (8.4-10.2) mg/dL Troponin T < 0.010 (0.00-0.029) ng/mL Plasma/Serum Alcohol 0.24 H (0-0.07) % 10/16/18 Range/Units 02:06 WBC (4.5-11.0) K/mm3 RBC (3.65-5.03) M/mm3 Hgb (11.8-15.2) gm/dl Hct (35.5-45.6) % MCV (84-94) fl MCH (28-32) pg MCHC (32-34) % RDW (13.2-15.2) % Plt Count (140-440) K/mm3 Lymph % (Auto) (13.4-35.0) % Whitley % (Auto) (0.0-7.3) % Eos % (Auto) (0.0-4.3) % Baso % (Auto) (0.0-1.8) % Lymph # (1.2-5.4) K/mm3 Whitley # (0.0-0.8) K/mm3 Eos # (0.0-0.4) K/mm3 Baso # (0.0-0.1) K/mm3 Seg Neutrophils % (40.0-70.0) % Seg Neutrophils # (1.8-7.7) K/mm3 Sodium (137-145) mmol/L Potassium (3.6-5.0) mmol/L Chloride (98-107) mmol/L Carbon Dioxide (22-30) mmol/L Anion Gap mmol/L BUN (9-20) mg/dL Creatinine (0.8-1.5) mg/dL Estimated GFR ml/min BUN/Creatinine Ratio % Glucose (75-100) mg/dL Calcium (8.4-10.2) mg/dL Troponin T < 0.010 (0.00-0.029) ng/mL Plasma/Serum Alcohol (0-0.07) % - EKG Data -: EKG Interpreted by Me EKG shows normal: sinus rhythm, axis, intervals, QRS complexes, ST-T waves Rate: normal - EKG Data Interpretation: normal EKG - Radiology Data Referring Physician: ELOISA ARGUELLO Patient Name: REBECCA ELIZABETH Date of : 1960 Sex: Male Report Date: 2018-10-16 Report Status: Finalized Findings [facility] [address] [place] [address] XRay Report Signed Patient: REBECCA ELIZABETH MR#: [id number] : 1960 Acct:[id number] Age/Sex: 57 / M ADM Date: 10/15/18 Loc: ED Attending Dr: Ordering Physician: ELOISA ARGUELLO MD Date of Service: 10/16/18 Procedure(s): XR chest 1V ap Accession Number(s): [id number] cc: ELOISA ARGUELLO MD Fluoro Time In Minutes: . CHEST 1 VIEW INDICATION / CLINICAL INFORMATION: Chest Pain. COMPARISON: 10/14/2018 FINDINGS: SUPPORT DEVICES: None. HEART / MEDIASTINUM: No significant abnormality. LUNGS / PLEURA: No significant pulmonary or pleural abnormality. No pneumothorax. ADDITIONAL FINDINGS: No significant additional findings. IMPRESSION: 1. No significant change Signer Name: Tom Montes De Oca MD Signed: 10/16/2018 1:03 AM Workstation Name: [id number] Transcribed By: MAK Dictated By: Tom Montes De Oca MD Electronically Authenticated By: Tom Montes De Oca MD Signed Date/Time: 10/16/18 0103 - Medical Decision Making Patient is a 57-year-old -Tunis[place] male who is presenting with atypical chest pain. Patient's had very similar presentations numerous times. Patient's had a stress echo which was within normal limits twice within the last 2 years. Patient's chest discomfort likely secondary to GERD and alcohol abuse. Patient restarted on Pepcid. Patient doesn't have his facial effects to the cardiology office for close follow-up. Patient also started on clindamycin for what appears to be a cellulitis right forearm. The patient be discharged home at this time. Critical care attestation.: If time is entered above; I have spent that time in minutes in the direct care of this critically ill patient, excluding procedure time. ED Disposition Clinical Impression: Alcoholism, Atypical chest pain GERD (gastroesophageal reflux disease) Qualifiers: Esophagitis presence: without esophagitis Qualified Code(s): K21.9 - Gastro- esophageal reflux disease without esophagitis Cellulitis Qualifiers: Site of cellulitis: extremity Site of cellulitis of extremity: upper extremity Laterality: right Qualified Code(s): L03.113 - Cellulitis of right upper limb Disposition: DC- TO HOME OR SELFCARE Is pt being admited?: No Does the pt Need Aspirin: No Condition: Stable Instructions: Chest Pain (ED), Cellulitis (ED) Referrals: DOMONIQUE JUAREZ MD [Primary Care Provider] - 3-5 Days Time of Disposition: 03:16
[2018-10-16] MEDS ORDERED: CLEOCIN PO ONE (03:16)
[2018-10-16] MEDS ORDERED: ASPIRIN ONE (03:29)
[2018-10-16 03:38] VITALS: BP 119/84
== END 2018-10-16 03:59 | disposition home or self-care (01) ==
LOC: ED 23:31
DX: K21.9 Gastro-esophageal reflux disease without esophagitis (principal); L03.113 Cellulitis of right upper limb; M54.9 Dorsalgia, unspecified; M54.2 Cervicalgia; G89.29 Other chronic pain; Z79.1 Long term (current) use of non-steroidal anti-inflammatories (NSAID); Z79.899 Other long term (current) drug therapy
CPT/HCPCS: 36415; 71045; 80048; 80320; 84484; 85025; 93005; 93010; 99284; G0480

== ENCOUNTER 2018-10-26 23:49 | Emergency (ER) | payer SELFPAY ==
--- NOTE | 2018-10-27 00:06 | Emergency Department Report ---
ED General Adult HPI - General Stated complaint: ETOH/ABDOMINAL PAIN Time Seen by Provider: 10/26/18 23:55 - History of Present Illness Initial comments: 57 y.o. male with history of alcohol abuse and multiple ER visits for abdominal pain presents with complaint of chest pain and abdominal pain. Patient has had a negative stress test in April 2018. Patient states that he was on model train began to have chest pain again and this representing to the emergency department. Patient denies any vomiting or shortness of breath. Patient denies any cocaine or heroin usage. Patient states he did however take in alcohol today. - Related Data Previous Rx's Medication Instructions Recorded Last Taken Type Ibuprofen [Motrin 800 MG tab] 800 mg PO Q8HR PRN #20 tablet 10/10/18 Unknown Rx Famotidine [Pepcid] 20 mg PO BID #30 tablet 10/14/18 Unknown Rx Folic Acid [Folvite] 1 mg PO QDAY #30 tablet 10/14/18 Unknown Rx Thiamine [Vitamin B-1] 100 mg PO QDAY #30 tablet 10/14/18 Unknown Rx Clindamycin [Clindamycin CAP] 300 mg PO Q8H #21 cap 10/16/18 Unknown Rx Famotidine [Pepcid] 40 mg PO QHS #10 tablet 10/16/18 Unknown Rx Pantoprazole [Protonix] 40 mg PO QDAY #30 tablet 10/16/18 Unknown Rx traMADol [Ultram] 50 mg PO Q6HR PRN #10 tablet 10/16/18 Unknown Rx Allergies Allergy/AdvReac Type Severity Reaction Status Date / Time No Known Allergies Allergy Verified 09/25/18 20:10 ED Review of Systems ROS: Stated complaint: ETOH/ABDOMINAL PAIN Other details as noted in HPI Constitutional: denies: chills, fever Eyes: denies: eye pain, eye discharge, vision change ENT: denies: ear pain, throat pain Respiratory: denies: cough, shortness of breath, wheezing Cardiovascular: chest pain Endocrine: no symptoms reported Gastrointestinal: denies: abdominal pain, nausea, diarrhea Genitourinary: denies: urgency, dysuria Musculoskeletal: denies: back pain, joint swelling, arthralgia Skin: denies: rash, lesions Neurological: denies: headache, weakness, paresthesias Psychiatric: denies: anxiety, depression Hematological/Lymphatic: denies: easy bleeding, easy bruising ED Past Medical Hx - Past Medical History Hx CVA: Yes (left) Hx Heart Attack/AMI: Yes Hx HIV: No Additional medical history: chronic pain in back, neck and L knee, ETOH abuse. herniated disc - Surgical History Additional Surgical History: Left Knee. skin graft to right hand - Social History Smoking Status: Never Smoker Substance Use Type: Alcohol - Medications Home Medications: Home Medications Medication Instructions Recorded Confirmed Last Taken Type Ibuprofen [Motrin 800 MG tab] 800 mg PO Q8HR PRN #20 tablet 10/10/18 Unknown Rx Famotidine [Pepcid] 20 mg PO BID #30 tablet 10/14/18 Unknown Rx Folic Acid [Folvite] 1 mg PO QDAY #30 tablet 10/14/18 Unknown Rx Thiamine [Vitamin B-1] 100 mg PO QDAY #30 tablet 10/14/18 Unknown Rx Clindamycin [Clindamycin CAP] 300 mg PO Q8H #21 cap 10/16/18 Unknown Rx Famotidine [Pepcid] 40 mg PO QHS #10 tablet 10/16/18 Unknown Rx Pantoprazole [Protonix] 40 mg PO QDAY #30 tablet 10/16/18 Unknown Rx traMADol [Ultram] 50 mg PO Q6HR PRN #10 tablet 10/16/18 Unknown Rx ED Physical Exam - General General appearance: alert, in no apparent distress, other (smells of ETOH; dishelved) - Head Head exam: Present: atraumatic, normocephalic - Eye Eye exam: Present: normal appearance - ENT ENT exam: Present: mucous membranes moist - Neck Neck exam: Present: normal inspection - Respiratory Respiratory exam: Present: normal lung sounds bilaterally. Absent: respiratory distress - Cardiovascular Cardiovascular Exam: Present: regular rate, normal rhythm. Absent: systolic murmur, diastolic murmur, rubs, gallop - GI/Abdominal GI/Abdominal exam: Present: soft, normal bowel sounds - Rectal Rectal exam: Present: deferred - Extremities Exam Extremities exam: Present: normal inspection - Back Exam Back exam: Present: normal inspection - Neurological Exam Neurological exam: Present: alert, oriented X3 - Psychiatric Psychiatric exam: Present: normal affect - Skin Skin exam: Present: warm, dry, intact, normal color. Absent: rash ED Course Vital Signs 10/26/18 10/27/18 10/27/18 23:54 00:00 00:01 Temperature 98 F Pulse Rate 100 H 105 H Respiratory 16 22 16 Rate Blood Pressure 113/88 Blood Pressure 113/88 [Left] O2 Sat by Pulse 97 95 97 Oximetry ED Medical Decision Making - Lab Data Result diagrams: 10/27/18 00:34 10/27/18 00:34 - EKG Data EKG shows normal: sinus rhythm Rate: normal - EKG Data When compared to previous EKG there are: no significant change - Medical Decision Making Patient currently sleeping in no acute distress. Patient noted to have an elevated alcohol level. Patient's troponin is normal. Patient's chest x-ray is normal. Patient be discharged to follow up with PCP. Juant sleeping comfortably and has been monitored for four hours. Patient able to ambulate. - Differential Diagnosis STEMI; NSTEMI; Alcohol abuse; Dehydration; Electrolyte abnormality; Anemia Critical care attestation.: If time is entered above; I have spent that time in minutes in the direct care of this critically ill patient, excluding procedure time. ED Disposition Clinical Impression: Chest pain, Alcoholism Disposition: - TO HOME OR SELFCARE Is pt being admited?: No Condition: Stable Instructions: Chest Pain (ED) Referrals: DOMONIQUE JUAREZ MD [Primary Care Provider] - 3-5 Days Time of Disposition: 05:53 Print Language: TELUGU
[2018-10-27 00:57] LABS: Hemoglobin 10.8 gm/dl (11.8-15.2); Mean Corpuscular HGB Conc 34 % (32-34); Mean Corpuscular Volume 94 fl (84-94); Platelet Count 159 K/mm3 (140-440); Red Blood Count 3.41 M/mm3 (3.65-5.03); Red Cell Distribution Width 16.3 % (13.2-15.2)
[2018-10-27 01:13] LABS: Amphetamine Screen,Urine PRESUMPTIVE NEGATIVE; Benzodiazepines Screen,Urine PRESUMPTIVE NEGATIVE; Cannabinoid Screen,Urine PRESUMPTIVE NEGATIVE; Cocaine Screen,Urine PRESUMPTIVE NEGATIVE; Methadone Screen,Urine PRESUMPTIVE NEGATIVE; Opiate Screen,Urine PRESUMPTIVE NEGATIVE
[2018-10-27 01:16] LABS: Alanine Aminotransferase 73 units/L (7-56); Albumin 3.5 g/dL (3.9-5); BUN/Creatinine Ratio 9; Blood Urea Nitrogen 6 mg/dL (9-20); Calcium 8.3 mg/dL (8.4-10.2); Hemolysis Index 17
[2018-10-27 02:28] LABS: Total Cells Counted 100
[2018-10-27 02:30] LABS: Anisocytosis 1+; Ovalocytes Few; Platelet Estimate Consistent w Auto; Target Cells Rare
--- NOTE | 2018-10-27 03:20 | XRay Report ---
CHEST 1 VIEW 12:32 AM INDICATION / CLINICAL INFORMATION: Chest Pain. COMPARISON: 10/24/2018. FINDINGS: SUPPORT DEVICES: None. HEART / MEDIASTINUM: No significant abnormality. LUNGS / PLEURA: There is minimal right basilar subsegmental atelectasis. No pneumothorax. ADDITIONAL FINDINGS: No significant additional findings. IMPRESSION: Minimal right basilar subsegmental atelectasis. Signer Name: Dany Laboy MD Signed: 10/27/2018 3:15 AM Workstation Name: [id number]
[2018-10-27] MEDS ORDERED: TYLENOL PO ONE (06:14)
[2018-10-27 06:20] VITALS: BP 110/79
== END 2018-10-27 09:00 | disposition home or self-care (01) ==
LOC: ED 23:49
DX: R07.89 Other chest pain (principal); F10.129 Alcohol abuse with intoxication, unspecified; I25.2 Old myocardial infarction; G89.29 Other chronic pain; Z79.899 Other long term (current) drug therapy
CPT/HCPCS: 36415; 71045; 80053; 80307; 80320; 84484; 85007; 85025; 93005; 93010; G0480

== ENCOUNTER 2018-11-02 01:23 | Emergency (ER) | payer SELFPAY ==
--- NOTE | 2018-11-02 08:11 | Emergency Department Report ---
ED Back Pain/Injury HPI - General Chief Complaint: Back Pain/Injury Stated Complaint: BACK PAIN Time Seen by Provider: 11/02/18 08:06 Source: patient Limitations: No Limitations - History of Present Illness Initial Comments: 57-year-old -Qat[place] male presents to the emergency room for chronic back pain. Patient reports that a history of a herniated disc. She is reported to nursing he's been using his medicated patches about difficulties. Patient has no other complaints. Patient was recently seen here 4 times this month. Patient has no further complaints. -: year(s) Similar Symptoms Previously: Yes Severity scale (0 -10): 4 Quality: dull, aching Consistency: intermittent Improves With: none Worsens With: none Associated Symptoms: denies other symptoms - Related Data Previous Rx's Medication Instructions Recorded Last Taken Type Ibuprofen [Motrin 800 MG tab] 800 mg PO Q8HR PRN #20 tablet 10/10/18 Unknown Rx Famotidine [Pepcid] 20 mg PO BID #30 tablet 10/14/18 Unknown Rx Folic Acid [Folvite] 1 mg PO QDAY #30 tablet 10/14/18 Unknown Rx Thiamine [Vitamin B-1] 100 mg PO QDAY #30 tablet 10/14/18 Unknown Rx Clindamycin [Clindamycin CAP] 300 mg PO Q8H #21 cap 10/16/18 Unknown Rx Famotidine [Pepcid] 40 mg PO QHS #10 tablet 10/16/18 Unknown Rx Pantoprazole [Protonix] 40 mg PO QDAY #30 tablet 10/16/18 Unknown Rx traMADol [Ultram] 50 mg PO Q6HR PRN #10 tablet 10/16/18 Unknown Rx Allergies Allergy/AdvReac Type Severity Reaction Status Date / Time No Known Allergies Allergy Verified 09/25/18 20:10 ED Review of Systems ROS: Stated complaint: BACK PAIN Other details as noted in HPI Comment: All other systems reviewed and negative ED Past Medical Hx - Past Medical History Previous Medical History?: Yes Hx CVA: Yes (left) Hx Heart Attack/AMI: Yes Hx HIV: No Additional medical history: chronic pain in back, neck and L knee, ETOH abuse. herniated disc - Surgical History Past Surgical History?: Yes Additional Surgical History: Left Knee. skin graft to right hand - Social History Smoking Status: Never Smoker Substance Use Type: Alcohol - Medications Home Medications: Home Medications Medication Instructions Recorded Confirmed Last Taken Type Ibuprofen [Motrin 800 MG tab] 800 mg PO Q8HR PRN #20 tablet 10/10/18 Unknown Rx Famotidine [Pepcid] 20 mg PO BID #30 tablet 10/14/18 Unknown Rx Folic Acid [Folvite] 1 mg PO QDAY #30 tablet 10/14/18 Unknown Rx Thiamine [Vitamin B-1] 100 mg PO QDAY #30 tablet 10/14/18 Unknown Rx Clindamycin [Clindamycin CAP] 300 mg PO Q8H #21 cap 10/16/18 Unknown Rx Famotidine [Pepcid] 40 mg PO QHS #10 tablet 10/16/18 Unknown Rx Pantoprazole [Protonix] 40 mg PO QDAY #30 tablet 10/16/18 Unknown Rx traMADol [Ultram] 50 mg PO Q6HR PRN #10 tablet 10/16/18 Unknown Rx ED Physical Exam - General Limitations: No Limitations General appearance: alert, in no apparent distress - Head Head exam: Present: atraumatic, normocephalic - Eye Eye exam: Present: normal appearance - ENT ENT exam: Present: mucous membranes moist - Neck Neck exam: Present: normal inspection - Back Exam Back exam: Present: normal inspection, full ROM - Neurological Exam Neurological exam: Present: alert, oriented X3 - Psychiatric Psychiatric exam: Present: normal affect, normal mood - Skin Skin exam: Present: warm, dry, intact, normal color. Absent: rash ED Course Vital Signs 11/02/18 01:29 Temperature 97.7 F Pulse Rate 94 H Respiratory 18 Rate Blood Pressure 126/81 O2 Sat by Pulse 98 Oximetry ED Medical Decision Making - Medical Decision Making 57-year-old -Qat[place] male presents to the emergency room for chronic back pain. Patient reports that a history of a herniated disc. She is reported to nursing he's been using his medicated patches about difficulties. Patient has no other complaints. Patient was recently seen here 4 times this month. Patient has no further complaints. Patient can take [id number] Tylenol and/or Motrin as needed for pain. Patient is to follow-up with the primary care provider. Critical care attestation.: If time is entered above; I have spent that time in minutes in the direct care of this critically ill patient, excluding procedure time. ED Disposition Clinical Impression: Chronic back pain greater than 3 months duration Disposition: DC-01 TO HOME OR SELFCARE Is pt being admited?: No Does the pt Need Aspirin: No Condition: Stable Instructions: Chronic Back Pain (ED) Additional Instructions: Take [id number] Tylenol and/or Motrin for pain relief. Follow-up with the primary care provider. Referrals: DOMONIQUE JUAREZ MD [Primary Care Provider] - 3-5 Days
[2018-11-02 08:46] VITALS: BP 122/76
== END 2018-11-02 08:44 | disposition home or self-care (01) ==
LOC: ED 01:23
DX: G89.29 Other chronic pain (principal); M54.9 Dorsalgia, unspecified; I25.2 Old myocardial infarction; Z86.73 Personal history of transient ischemic attack (TIA), and cerebral infarction without residual deficits; Z98.890 Other specified postprocedural states

== ENCOUNTER 2018-11-07 01:45 | Emergency (ER) | payer SELFPAY ==
[2018-11-07 02:05] VITALS: BP 101/70
--- NOTE | 2018-11-07 04:19 | Emergency Department Report ---
Chief Complaint: Back Pain/Injury Stated Complaint: LOWER BACK PAIN,LT SHOLDER PAIN Time Seen by Provider: 11/07/18 04:08 - HPI History of Present Illness: This is a 57-year-old male. Patient has a history of chronic back pain alcoholism DVT. Patient was last seen here 11/02/2018 for the same complaints. Patient was seen here also 10/16/2018 and was given tramadol. Patient denies any recent traumas or falls. - Exam Vital Signs: Vital Signs 11/07/18 11/07/18 02:03 02:05 Temperature 98.1 F 98.1 F Respiratory 18 18 Rate Blood Pressure 101/70 Blood Pressure 101/70 [Right] O2 Sat by Pulse 99 Oximetry Physical Exam: Patient is alert, fully following asleep during my interview. Patient has full range of motion nontender to palpate MSE screening note: Focused history and physical exam performed. Due to findings the following was ordered: The patient comes in for chronic pain. Patient be referred to his primary care provider. Patient take ibuprofen or Tylenol for pain management. ED Disposition for MSE Clinical Impression: Chronic back pain greater than 3 months duration Degenerative joint disease Qualifiers: Osteoarthritis location: unspecified site Osteoarthritis type: primary Qualified Code(s): M19.91 - Primary osteoarthritis, unspecified site Disposition: - MED SCREENING EXAM-LEFT Is pt being admited?: No Does the pt Need Aspirin: No Condition: Stable
== END 2018-11-07 04:15 | disposition left against medical advice (07) ==
LOC: ED 01:45
DX: M51.36 Other intervertebral disc degeneration, lumbar region (principal); G89.29 Other chronic pain
CPT/HCPCS: 99281

== ENCOUNTER 2018-11-14 19:38 | Emergency (ER) | payer SELFPAY ==
--- NOTE | 2018-11-14 19:53 | Event Note ---
ED Screening Note Date of service: 11/14/18 Time: 19:47 ED Screening Note: 57 Y O MALE PRESENTS WITH chest pain that began today also cc of ACUTE ON CHRONIC BACK PAIN FROM SLIPPED DISC This initial assessment/diagnostic orders/clinical plan/treatment(s) is/are subject to change based on patients health status, clinical progression and re- assessment by fellow clinical providers in the ED. Further treatment and workup at subsequent clinical providers discretion. Patient/guardian urged not to elope from the ED as their condition may be serious if not clinically assessed and managed. Initial orders include: labs
[2018-11-14] MEDS ORDERED: ASPIRIN PO ONE (20:37)
--- NOTE | 2018-11-14 21:08 | XRay Report ---
CHEST 1 VIEW, 11/14/2018 8:51 PM INDICATION: Chest pain for several days COMPARISON: Chest radiograph, 10/30/2018 at 1:54 AM FINDINGS: SUPPORT DEVICES: None HEART: The cardiac silhouette is normal in size. LUNGS/PLEURA: The lungs are clear of focal airspace disease or significant pleural effusion. ADDITIONAL FINDINGS: No additional acute findings. IMPRESSION: 1. No evidence of acute cardiopulmonary process. Signer Name: Ila Fernández MD Signed: 11/14/2018 9:04 PM Workstation Name: [id number]
[2018-11-14 21:54] LABS: Hematocrit 34.9 % (35.5-45.6); Hemoglobin 11.7 gm/dl (11.8-15.2); Mean Corpuscular HGB Conc 34 % (32-34); Mean Corpuscular Volume 92 fl (84-94); Platelet Count 158 K/mm3 (140-440); Red Blood Count 3.81 M/mm3 (3.65-5.03); Red Cell Distribution Width 14.6 % (13.2-15.2)
[2018-11-14 22:14] LABS: BUN/Creatinine Ratio 9; Blood Urea Nitrogen 7 mg/dL (9-20); Calcium 7.9 mg/dL (8.4-10.2); Hemolysis Index 5
[2018-11-14 22:52] VITALS: BP 100/63
[2018-11-15 00:47] LABS: RBC Morphology Normal; Total Cells Counted 100
== END 2018-11-14 23:11 | disposition home or self-care (01) ==
LOC: ED 19:38
DX: M54.9 Dorsalgia, unspecified (principal); Z53.21 Procedure and treatment not carried out due to patient leaving prior to being seen by health care provider
CPT/HCPCS: 36415; 71045; 80048; 84484; 85007; 85025; 93005; 93010

== ENCOUNTER 2018-12-23 20:02 | Inpatient (IN) | payer OTHER ==
--- NOTE | 2018-12-23 20:50 | Emergency Department Report ---
Blank Doc - Documentation Documentation: 58-year-old male that presents with chest pain and SOB. This initial assessment/diagnostic orders/clinical plan/treatment(s) is/are subject to change based on patient's health status, clinical progression and re- assessment by fellow clinical providers in the ED. Further treatment and workup at subsequent clinical providers discretion. Patient/guardians urged not to elope from the ED as their condition may be serious if not clinically assessed and managed. Initial orders include: 1- Patient sent to MAIN for further evaluation and treatment 2- CXR 3- labs 4- EKG
[2018-12-23 22:00] LABS: INR 1.06 (0.87-1.13)
[2018-12-23 22:01] LABS: Partial Thromboplastin Time 55.5 Sec. (24.2-36.6)
[2018-12-23 22:06] LABS: Alanine Aminotransferase 50 units/L (7-56); Albumin 3.6 g/dL (3.9-5); BUN/Creatinine Ratio 14; Blood Urea Nitrogen 10 mg/dL (9-20); Calcium 8.1 mg/dL (8.4-10.2); Hemolysis Index 46
[2018-12-23 22:37] LABS: Hematocrit 33.9 % (35.5-45.6); Hemoglobin 11.3 gm/dl (11.8-15.2); Mean Corpuscular HGB Conc 34 % (32-34); Mean Corpuscular Volume 90 fl (84-94); Platelet Count 186 K/mm3 (140-440); Red Blood Count 3.76 M/mm3 (3.65-5.03); Red Cell Distribution Width 15.4 % (13.2-15.2)
[2018-12-23] MEDS ORDERED: NACL 0.9% 1000 ML 1,000 ML IV ONE (23:04)
--- NOTE | 2018-12-23 23:10 | XRay Report ---
CHEST 2 VIEWS INDICATION / CLINICAL INFORMATION: MAIN: Chest Pain Chestpain Since last night.. COMPARISON: 11/14/2018 FINDINGS: SUPPORT DEVICES: None. HEART / MEDIASTINUM: No significant abnormality. LUNGS / PLEURA: No significant pulmonary or pleural abnormality. No pneumothorax. ADDITIONAL FINDINGS: Degenerative changes are seen in the thoracolumbar spine. IMPRESSION: 1. No acute findings. Signer Name: Nayan Villanueva MD Signed: 12/23/2018 11:05 PM Workstation Name: [id number]
--- NOTE | 2018-12-24 02:21 | Emergency Department Report ---
ED Chest Pain HPI - General Chief Complaint: Chest Pain Stated Complaint: CHEST PAIN/BACK PAIN Time Seen by Provider: 12/23/18 20:48 Source: patient Mode of arrival: Ambulatory Limitations: No Limitations - History of Present Illness Initial Comments: 58-year-old male with history of chronic alcohol abuse, chronic back pain presents to ED with complaint of left chest pain and exacerbation of his chronic back pain. Patient also complaining of itching rash that has been present for "a while." MD Complaint: chest pain -: This evening Onset: during rest Pain Location: left chest Pain Radiation: none Severity: mild Severity scale (0 -10): 0 Quality: other (throbbing) Consistency: constant Improves With: nothing Worsens With: nothing re: denies: nausea, vomting, diaphoresis, dyspnea Other Symptoms: denies: cough, fever - Related Data Previous Rx's Medication Instructions Recorded Last Taken Type Folic Acid [Folvite] 1 mg PO QDAY #30 tablet 10/14/18 Unknown Rx Thiamine [Vitamin B-1] 100 mg PO QDAY #30 tablet 10/14/18 Unknown Rx Pantoprazole [Protonix TAB] 40 mg PO QDAY #30 tablet 10/16/18 Unknown Rx Clindamycin [Clindamycin CAP] 600 mg PO BID #10 capsule 12/26/18 Unknown Rx Allergies Allergy/AdvReac Type Severity Reaction Status Date / Time No Known Allergies Allergy Verified 09/25/18 20:10 Heart Score - HEART Score History: Slightly suspicious EKG: Normal Age: 45-65 Risk factors: 1-2 risk factors Troponin: < normal limit HEART Score: 2 ED Review of Systems ROS: Stated complaint: CHEST PAIN/BACK PAIN Other details as noted in HPI Comment: All other systems reviewed and negative Constitutional: denies: chills, fever Respiratory: denies: shortness of breath Cardiovascular: chest pain Musculoskeletal: other (reports chronic back pain) Skin: rash, pruritus ED Past Medical Hx - Past Medical History Previous Medical History?: Yes Hx CVA: Yes (left) Hx Heart Attack/AMI: Yes Hx HIV: No Additional medical history: chronic pain in back, neck and L knee, ETOH abuse. herniated disc - Surgical History Past Surgical History?: Yes Additional Surgical History: Left Knee. skin graft to right hand - Social History Smoking Status: Current Every Day Smoker Substance Use Type: Alcohol - Medications Home Medications: Home Medications Medication Instructions Recorded Confirmed Last Taken Type Folic Acid [Folvite] 1 mg PO QDAY #30 tablet 10/14/18 12/24/18 Unknown Rx Thiamine [Vitamin B-1] 100 mg PO QDAY #30 tablet 10/14/18 12/24/18 Unknown Rx Pantoprazole [Protonix TAB] 40 mg PO QDAY #30 tablet 10/16/18 12/24/18 Unknown Rx Clindamycin [Clindamycin CAP] 600 mg PO BID #10 capsule 12/26/18 Unknown Rx ED Physical Exam - General Limitations: No Limitations General appearance: alert, in no apparent distress - Head Head exam: Present: atraumatic, normocephalic - Eye Eye exam: Present: normal appearance - ENT ENT exam: Present: mucous membranes moist - Neck Neck exam: Present: normal inspection - Respiratory Respiratory exam: Present: normal lung sounds bilaterally, chest wall tenderness. Absent: respiratory distress - Cardiovascular Cardiovascular Exam: Present: normal rhythm, tachycardia - GI/Abdominal GI/Abdominal exam: Absent: distended - Neurological Exam Neurological exam: Present: alert, oriented X3 - Psychiatric Psychiatric exam: Present: normal affect, normal mood - Skin Skin exam: Present: rash (papular rash present diffusely, excoriations present ) ED Course Vital Signs 12/23/18 12/23/18 12/24/18 20:48 23:00 01:41 Temperature 97.5 F L 97.8 F Pulse Rate 114 H 86 Respiratory 18 18 18 Rate Blood Pressure 117/73 Blood Pressure 122/70 [Left] O2 Sat by Pulse 100 99 97 Oximetry 12/24/18 03:28 Temperature 97.6 F Pulse Rate 80 Respiratory 18 Rate Blood Pressure Blood Pressure 116/74 [Left] O2 Sat by Pulse 97 Oximetry MERT score - Mert Score Age > 65: (0) No Aspirin use within the Past 7 Days: (0) No 3 or more CAD Risk Factors: (0) No 2 or more Angina events in past 24 hrs: (0) No Known CAD with more than 50% Stenosis: (0) No Elevated Cardiac Markers: (0) No ST Deviation Greater than 0.5mm: (0) No MERT Score: 0 ED Medical Decision Making - Lab Data Result diagrams: 12/23/18 21:23 12/24/18 05:52 - EKG Data -: EKG Interpreted by Me EKG shows normal: sinus rhythm, axis, intervals, QRS complexes, ST-T waves Rate: tachycardia (rate 103) - EKG Data Interpretation: no acute changes - Radiology Data Radiology results: report reviewed, image reviewed - Medical Decision Making - EKG normal, trop negative x2 - negative stress test Apr 2018 - sodium of 129, initial bicarb of 17, AG 24, likely alcoholic ketoacidosis - labs improved slightly w/ 1L bolus, however, pt remains hyponatremic at 130; baseline sodium usually upper 130s - 140s - will admit to hospitalist, Dr German, for further management - Differential Diagnosis chronic pain, chest wall pain, alcohol abuse Critical care attestation.: If time is entered above; I have spent that time in minutes in the direct care of this critically ill patient, excluding procedure time. ED Disposition Clinical Impression: Chest pain, Hyponatremia, Alcoholic ketoacidosis Disposition: OP ADMIT IP TO THIS HOSP Is pt being admited?: Yes Condition: Stable Time of Disposition: 02:59
[2018-12-24 02:48] LABS: BUN/Creatinine Ratio 15; Blood Urea Nitrogen 9 mg/dL (9-20); Calcium 8.3 mg/dL (8.4-10.2); Hemolysis Index 8
[2018-12-24] MEDS ORDERED: NITROSTAT SL PRN (03:55)
[2018-12-24] MEDS ORDERED: TYLENOL PO PRN (03:57)
[2018-12-24] MEDS ORDERED: ZOFRAN IV PRN (03:58)
[2018-12-24] MEDS ORDERED: VITAMIN B-1 100 MG, FOLVITE 1 MG, INFUVITE 10 ML in NACL 0.9% 1000 ML 1,000 ML IV ONE (04:02)
[2018-12-24] MEDS ORDERED: HEPARIN ONE (04:30)
[2018-12-24] MEDS: HEPARIN SUB-Q SCH ×3 (04:40→22:23)
--- NOTE | 2018-12-24 04:46 | History and Physical Report ---
CHIEF COMPLAINT: Chest pain. Other complaint includes back pain. HISTORY OF PRESENT ILLNESS: The patient is a 58-year-old male known to be drinking alcohol on regular basis, presenting with chest pain. Pain is in the retrosternal area and also occuring in the epigastric area. Pain is sharp in consistency, does not radiate and is associated with shortness of breath, nausea and vomiting. There is no history of fever or chills and no history of cough. The patient's pain is relieved with pain medication. The patient's back pain is also chronic. PAST MEDICAL HISTORY: Pertinent for cerebrovascular accident, coronary artery disease, status post myocardial infarction. Also, the patient has past medical history of chronic back pain and alcohol abuse. PAST SURGICAL HISTORY: Pertinent for left knee surgery, skin graft to the right hand. FAMILY HISTORY: Noncontributory. SOCIAL HISTORY: The patient smokes cigarette every day and drinks alcohol regularly, does not use illicit drugs. MEDICATIONS: The patient is on the following medications Motrin 800 mg by mouth every 8 hours as needed for pain, Pepcid 20 mg by mouth twice daily, folic acid 1 mg by mouth daily, thiamine 100 mg by mouth daily, clindamycin 300 mg by mouth every 8 hours, Pepcid 40 mg by mouth at bedtime, Protonix 40 mg by mouth daily, tramadol 50 mg by mouth every 6 hours as needed for pain. ALLERGIES: There are no known drug allergies. REVIEW OF SYSTEMS: CONSTITUTIONAL: There is no fever, no chills, no diaphoresis. HEENT: There is no headache or sore throat. CARDIOVASCULAR SYSTEM: There is chest pain, but no orthopnea. RESPIRATORY SYSTEM: Shortness of breath is present. No cough. GASTROINTESTINAL SYSTEM: Epigastric abdominal pain present. Nausea and vomiting present. No diarrhea, no constipation. NEUROLOGICAL SYSTEM: There is no numbness, no dizziness, no altered mental status. MUSCULOSKELETAL SYSTEM: There is back pain that is chronic. No joint swelling. DERMATOLOGICAL SYSTEM: There is no skin rash or itching. GENITOURINARY SYSTEM: There is no dysuria, hematuria, or flank pain. Rest of system review is normal. PHYSICAL EXAMINATION: GENERAL: At the time of exam, the patient was found to be alert, oriented x 3 and in mild distress due to chest pain. VITAL SIGNS: Shows temperature of 97.5 degrees Fahrenheit, pulse of 114, respiratory rate of 18, blood pressure of 117/73, O2 sat of 100% on room air. HEENT: Showed pupils to be equal, round, reactive to light and accommodating. Extraocular muscles are intact. NECK: Supple with no JVD or carotid bruit. CARDIOVASCULAR SYSTEM: Showed normal first and second heart sounds with no gallops or murmurs. RESPIRATORY SYSTEM: Show good air entry on both sides of the lungs with no abnormal breath sounds. GASTROINTESTINAL SYSTEM: Show abdomen to be full, soft with tenderness in the epigastric area, but no rigidity, no organomegaly or rebound tenderness. Bowel sound is normal. NEUROLOGICAL SYSTEM: Showed no focal deficit. MUSCULOSKELETAL SYSTEM: Show no joint swelling or tenderness. DERMATOLOGICAL SYSTEM: Show excoriation of the skin in both legs. GENITOURINARY SYSTEM: Show no costovertebral angle tenderness. PERTINENT LABORATORY AND IMAGING STUDIES: The patient had chest x-ray done that shows no acute findings. Lab results, the patient had CBC done, which shows normal white count, low hemoglobin of 11.3 and low hematocrit of 33.9 with coagulation studies showing high PTT of 55.5 and chemistry showing low sodium level of 129 with normal potassium, low chloride level of 92.7, low CO2 of 17 and low calcium level of 8.1 with correspondingly low albumin level of 3.6. DIAGNOSES: 1. Chest pain. 2. Hyponatremia. 3. Alcohol Abuse PLAN OF CARE: 1. The patient will be placed on observation on telemetry. 2. The patient will have cardiac enzymes involving troponin, total CK, and CK-MB checks q. 6 hours x 2 more levels. 3. The patient will be n.p.o. and will have Lexiscan stress test done this morning. 4. The patient will be on IV banana bag running at 150 mL an hour. 5. The patient will be on aspirin 325 mg by mouth daily and will be on nitro paste half inch to anterior chest wall q.i.d. 6. The patient will also be on IV morphine 2 mg every 3 hours as needed for pain and IV Zofran 4 mg every 8 hours as needed for nausea and vomiting. 7. The patient will be on Nitrostat 0.4 mg sublingual every 5 minutes as needed for breakthrough chest pain and will be on Tylenol 650 mg by mouth every 4 hours for fever and headache. 8. The patient will be on heparin 5000 units subcutaneous q. 12 hours for DVT prophylaxis. 9. The patient will have basic metabolic panel checked this morning and will have cardiac enzymes involving troponin, total CK, and CK-MB checked every 6 hours x 2 more levels. 10. The patient will have blood alcohol level checked this morning. JOB# [id number] OCN/NTS MTDD
[2018-12-24 06:29] LABS: BUN/Creatinine Ratio 13; Blood Urea Nitrogen 8 mg/dL (9-20); Calcium 8.1 mg/dL (8.4-10.2); Hemolysis Index 6
[2018-12-24] MEDS ORDERED: LEXISCAN IV ONE ×2 (07:15→09:31)
[2018-12-24] MEDS: NITRO-BID 2% TP SCH ×4 (13:31→19:09)
[2018-12-24] MEDS: ASPIRIN PO SCH (13:35)
[2018-12-24 13:47] LABS: Creatine Kinase MB 2.6 ng/mL (0.0-4.0)
--- NOTE | 2018-12-24 16:15 | Event Note ---
Date: 12/24/18 patient seen and examined cont current mx an d plan per HPI admitted for chest pain, stress test pending + ETOH level - on alcohol withdrawal protocol
[2018-12-24] MEDS: MORPHINE IV PRN ×2 (16:37→22:23)
[2018-12-25] MEDS: NITRO-BID 2% TP SCH ×4 (05:31→18:53)
[2018-12-25] MEDS: ASPIRIN PO SCH (10:41)
--- NOTE | 2018-12-25 12:38 | Discharge Summary ---
Providers - Providers Date of Admission: 12/24/18 11:28 Date of discharge: 12/26/18 Attending physician: YAHIR EDUARDO 12/25/18 12:32 Consult to Physician [CONS] Routine Reason For Exam: chest pain Consulting Provider: CHANTELLE JACKSON Physician Instructions: Comment: Primary care physician: CREDIT COUNSELOR Hospitalization Condition: Stable Hospital course: 58-year-old with a history of alcohol abuse presented to the ER with complaints of Retrosternal chest pain. Patient was evaluated in the ER, initial cardiac enzyme and EKG was unremarkable, chest x-ray showed no infiltrates. Patient was admitted and underwent myocardial stress test which was normal. 2-D echo showed preserved EF. Patient was then discharged home in stable condition with outpatient follow-up. Discharge diagnosis: Atypical chest pain, likely GERD, stress test today, was normal Alcohol abuse, monitored for withdrawal, counseled for cessation Chronic back pain, outpt f/u Bed bug infestation, s/p contact isolation - counseled for hygeine hyponatremia, resolved Right hand cellulitis? - likely iv infiltration, empirically started on clindamycin Disposition: DC-01 TO HOME OR SELFCARE Time spent for discharge: 34 minutes Core Measure Documentation - Palliative Care Palliative Care/ Comfort Measures: Not Applicable - Core Measures Any of the following diagnoses?: none Exam - Constitutional Vitals: Temp Pulse Resp BP Pulse Ox 98.1 F 87 18 91/56 97 12/25/18 05:30 12/25/18 07:27 12/25/18 05:28 12/25/18 07:27 12/25/18 07:27 General appearance: Present: no acute distress, well-nourished - EENT Eyes: Present: PERRL ENT: hearing intact, clear oral mucosa - Neck Neck: Present: supple, normal ROM - Respiratory Respiratory effort: normal Respiratory: bilateral: CTA - Cardiovascular Heart Sounds: Present: S1 & S2. Absent: rub, click - Extremities Extremities: pulses symmetrical, No edema Peripheral Pulses: within normal limits - Abdominal General gastrointestinal: Present: soft, non-tender, non-distended, normal bowel sounds - Integumentary Integumentary: Present: clear, warm, dry - Musculoskeletal Musculoskeletal: gait normal, strength equal bilaterally - Psychiatric Psychiatric: appropriate mood/affect, intact judgment & insight - Neurologic Neurologic: CNII-XII intact, moves all extremities Plan Activity: advance as tolerated Weight Bearing Status: Weight Bear as Tolerated Diet: low fat, low salt Additional Instructions: Alcohol cessation Follow up with: PRIMARY CARE, [Primary Care Provider] - 3-5 Days Prescriptions: Clindamycin [Clindamycin CAP] 600 mg PO BID #10 capsule
[2018-12-25] MEDS: HEPARIN SUB-Q SCH ×2 (12:41→21:39)
[2018-12-25 17:39] LABS: Albumin 2.8 g/dL (3.9-5); Bilirubin,Direct 0.2 mg/dL (0-0.2)
[2018-12-26] MEDS: NITRO-BID 2% TP SCH ×3 (05:34→15:00)
[2018-12-26] MEDS ORDERED: LEXISCAN IV ONE ×2 (08:38)
[2018-12-26] MEDS ORDERED: PROTONIX PO SCH (10:00)
[2018-12-26] MEDS ORDERED: FOLVITE PO SCH (10:00)
[2018-12-26] MEDS ORDERED: VITAMIN B-1 PO SCH (10:00)
[2018-12-26 10:28] VITALS: BP 110/77
[2018-12-26] MEDS: HEPARIN SUB-Q SCH (12:23)
[2018-12-26] MEDS: ASPIRIN PO SCH (12:23)
--- NOTE | 2018-12-26 13:03 | Treadmill Report ---
NUCLEAR PERFUSION STUDY REASON FOR STUDY: Chest pain. IMAGING PROTOCOL: The patient received 10 mCi of Technetium 99m Tetrofosmin for resting image and 28 mCi of Technetium 99m Tetrofosmin for stress imaging. The imaging for the whole procedure was completed 30-90 minutes following the initial injection of Technetium 99m Tetrofosmin. The SPECT imaging in the 180 degree arc was performed in the right anterior oblique projection. Computerized reconstruction of the images was performed for analysis. IMAGING RESULTS: Normal cavity size from stress to rest. Normal distribution of radionuclide in the anterior, inferior, septal, and apical regions. Gated SPECT, EF greater than 65% with no wall motion abnormality. The patient infused Lexiscan with no EKG changes. SUMMARY: 1. Negative Lexiscan EKG. 2. Normal rest and stress myocardial perfusion scan. No significant stress ischemia. No wall motion abnormality on gated SPECT, EF 65%. JOB# [id number] VENITA/GRETCHEN
--- NOTE | 2018-12-26 15:06 | Progress Note ---
Assessment and Plan Atypical chest pain - Could be musculoskeletal versus GERD - Continue PPI, troponin negative, no acute changes on EKG - postponded stress test tomorrow, 2-D echo ordered Alcohol abuse, monitor for withdrawal, continue folic acid and thiamine, Ativan IV as needed Bed bug infestation, patient on contact isolation - we will DC isolation DVT prophylaxis, Lovenox Subjective Date of service: 12/25/18 Interval history: Patient seen and examined. Medical records and medication list reviewed. No acute event overnight noted by the RN. Patient denies any difficulty breathing but continue to complaints of intermittent chest pain. Patient is tolerating diet. Stress test is postponed for possible bedbug infestation and contact isolation Discussed plan of care at bedside with patient. Objective - Constitutional Vitals: Vital Signs - 12hr 12/26/18 12/26/18 12/26/18 04:07 05:34 09:40 Temperature 98.0 F Pulse Rate 107 H 102 H Respiratory 18 Rate Blood Pressure 100/69 100/69 116/68 O2 Sat by Pulse 100 Oximetry 12/26/18 12/26/18 12/26/18 09:58 09:59 10:01 Temperature Pulse Rate Respiratory Rate Blood Pressure 118/73 111/71 121/72 O2 Sat by Pulse Oximetry 12/26/18 12/26/18 12/26/18 10:07 10:08 10:09 Temperature Pulse Rate Respiratory Rate Blood Pressure 119/70 113/69 112/69 O2 Sat by Pulse Oximetry 12/26/18 10:10 Temperature Pulse Rate Respiratory Rate Blood Pressure 110/77 O2 Sat by Pulse Oximetry General appearance: Present: no acute distress, well-nourished - EENT Eyes: PERRL, EOM intact ENT: hearing intact, clear oral mucosa Ears: bilateral: normal - Neck Neck: supple, normal ROM - Respiratory Respiratory effort: normal Respiratory: bilateral: CTA - Cardiovascular Rhythm: regular Heart Sounds: Present: S1 & S2. Absent: gallop, rub Extremities: pulses intact, No edema, normal color, Full ROM - Gastrointestinal General gastrointestinal: Present: soft, non-tender, non-distended, normal bowel sounds - Integumentary Integumentary: clear, warm, dry - Musculoskeletal Musculoskeletal: 1, strength equal bilaterally - Neurologic Neurologic: moves all extremities - Psychiatric Psychiatric: memory intact, appropriate mood/affect, intact judgment & insight - Labs CBC & Chem 7: 12/23/18 21:23 12/24/18 05:52 Labs: Abnormal lab results 12/25/18 Range/Units 16:51 AST 73 H (5-40) units/L Alkaline Phosphatase 179 H (35-129) units/L Albumin 2.8 L (3.9-5) g/dL
== END 2018-12-26 17:40 | disposition home or self-care (01) | DRG 392 ==
LOC: ED 20:02 → 4A 12-24 03:02 → OBSVTOIN 12-24 11:28
PROVIDERS: ADMIT Internal Medicine; ATTEND Internal Medicine
DX: K21.9 Gastro-esophageal reflux disease without esophagitis (principal); E87.1 Hypo-osmolality and hyponatremia; L03.113 Cellulitis of right upper limb; E87.2 Acidosis; F10.10 Alcohol abuse, uncomplicated; Y90.9 Presence of alcohol in blood, level not specified; F17.200 Nicotine dependence, unspecified, uncomplicated; B88.8 Other specified infestations; G89.29 Other chronic pain; I25.2 Old myocardial infarction; Z71.41 Alcohol abuse counseling and surveillance of alcoholic
CPT/HCPCS: 36415; 71046; 78452; 80048; 80053; 80076; 80320; 82550; 82553; 84484; 85025; 85610; 85730; 93005; 93010; 93017; 93306; 96360; 96372; G0378; A9502; G0480; J1644; J2270; J2785; J3411; J7030

== ENCOUNTER 2019-08-22 00:48 | Emergency (ER) | payer MEDICAID ==
[2019-08-22 01:16] VITALS: BP 131/79
[2019-08-22] MEDS ORDERED: predniSONE 20 MG TAB PO ONE (02:38)
[2019-08-22] MEDS ORDERED: IBUPROFEN 600 MG TAB PO ONE (02:38)
[2019-08-22] MEDS ORDERED: ACETAMINOPHEN 500 MG TAB PO ONE (02:38)
--- NOTE | 2019-08-22 03:25 | Emergency Department Report ---
ED Back Pain/Injury HPI - General Chief Complaint: Back Pain/Injury Stated Complaint: BACK PAIN Source: patient Limitations: No Limitations - History of Present Illness Initial Comments: Patient is a 58-year-old -Maur[place] male with a history of hypertension, stroke, coronary artery disease status post acute NC, chronic low back pain with sciatica, chronic alcohol abuse and degenerative lumbar disc disease who presents to the ED with complaint of acute exacerbation of his chronic low back pain that radiates to the left hip for the last 1 week, worse in the last 2 days. Patient states that he has not been able to ambulate even going up the stairs because of the worsening pain. Patient states that Tylenol or ibuprofen occasionally helps control his pain but that in the last 12 hours even taking this medication has not helped his pain. Patient denies dizziness, syncope, chest pain, shortness of breath, abdominal pain, cough, dysuria, urinary frequency and urgency, urinary or bowel incontinence, testicular pain, hematuria, fever and chills, nausea and vomiting, heavy lifting, fall, traumatic injury, numbness and tingling or weakness of lower extremities bilaterally or neck pain. MD Complaint: back pain, other (left hip pain) -: Gradual, year(s) (2) Similar Symptoms Previously: Yes (chronic low back pain with sciatica) Place: home Radiation: left leg (hip) Quality: sharp Consistency: constant Improves With: none Worsens With: movement, walking Context: unknown Associated Symptoms: denies other symptoms, difficulty walking (Wheelchair- bound). denies: confusion, weakness, chest pain, cough, difficulty urinating, diaphoresis, fever/chills, constipation, headaches, loss of appetite, malaise, nausea/vomiting, syncope - Related Data Previous Rx's Medication Instructions Recorded Last Taken Type Folic Acid [Folvite] 1 mg PO QDAY #30 tablet 10/14/18 Unknown Rx Thiamine [Vitamin B-1] 100 mg PO QDAY #30 tablet 10/14/18 Unknown Rx Pantoprazole [Protonix TAB] 40 mg PO QDAY #30 tablet 10/16/18 Unknown Rx Clindamycin [Clindamycin CAP] 600 mg PO BID #10 capsule 12/26/18 Unknown Rx Ibuprofen [Motrin] 600 mg PO Q8H PRN #30 tablet 08/22/19 Unknown Rx predniSONE [Deltasone] 40 mg PO QDAY #10 tab 08/22/19 Unknown Rx Allergies Allergy/AdvReac Type Severity Reaction Status Date / Time No Known Allergies Allergy Verified 09/25/18 20:10 ED Review of Systems ROS: Stated complaint: BACK PAIN Other details as noted in HPI Constitutional: denies: chills, fever Eyes: denies: eye pain, eye discharge, vision change ENT: denies: ear pain, throat pain Respiratory: denies: cough, shortness of breath, wheezing Cardiovascular: denies: chest pain, palpitations Endocrine: no symptoms reported Gastrointestinal: denies: abdominal pain, nausea, diarrhea Genitourinary: denies: urgency, dysuria Musculoskeletal: back pain (Low back pain), arthralgia (Left hip pain). denies: joint swelling Skin: denies: rash, lesions Neurological: denies: headache, weakness, paresthesias Psychiatric: denies: anxiety, depression Hematological/Lymphatic: denies: easy bleeding, easy bruising ED Past Medical Hx - Past Medical History Previous Medical History?: Yes Hx CVA: Yes (left) Hx Heart Attack/AMI: Yes Hx Congestive Heart Failure: No Hx Diabetes: No Hx Asthma: No Hx COPD: No Hx HIV: No Additional medical history: chronic pain in back, neck and L knee, ETOH abuse. herniated disc - Surgical History Past Surgical History?: Yes Additional Surgical History: Left Knee. skin graft to right hand - Social History Smoking Status: Never Smoker Substance Use Type: Alcohol - Medications Home Medications: Home Medications Medication Instructions Recorded Confirmed Last Taken Type Folic Acid [Folvite] 1 mg PO QDAY #30 tablet 10/14/18 12/24/18 Unknown Rx Thiamine [Vitamin B-1] 100 mg PO QDAY #30 tablet 10/14/18 12/24/18 Unknown Rx Pantoprazole [Protonix TAB] 40 mg PO QDAY #30 tablet 10/16/18 12/24/18 Unknown Rx Clindamycin [Clindamycin CAP] 600 mg PO BID #10 capsule 12/26/18 Unknown Rx Ibuprofen [Motrin] 600 mg PO Q8H PRN #30 tablet 08/22/19 Unknown Rx predniSONE [Deltasone] 40 mg PO QDAY #10 tab 08/22/19 Unknown Rx ED Physical Exam - General Limitations: No Limitations General appearance: alert, in no apparent distress - Head Head exam: Present: atraumatic, normocephalic, normal inspection - Eye Eye exam: Present: normal appearance, PERRL, EOMI Pupils: Present: normal accommodation - ENT ENT exam: Present: normal exam, normal orophraynx, mucous membranes moist, TM's normal bilaterally, normal external ear exam - Neck Neck exam: Present: normal inspection, full ROM. Absent: tenderness - Respiratory Respiratory exam: Present: normal lung sounds bilaterally. Absent: respiratory distress, wheezes, rales, rhonchi, chest wall tenderness, accessory muscle use, decreased breath sounds, other - Cardiovascular Cardiovascular Exam: Present: regular rate, normal rhythm, normal heart sounds. Absent: systolic murmur, diastolic murmur, rubs, gallop - GI/Abdominal GI/Abdominal exam: Present: soft, normal bowel sounds. Absent: tenderness, guarding, hyperactive bowel sounds - Extremities Exam Extremities exam: Present: normal inspection, full ROM, tenderness (Palpable left hip tenderness), normal capillary refill. Absent: joint swelling - Back Exam Back exam: Present: normal inspection, full ROM, tenderness (Palpable lumbosacral paraspinal musculoskeletal tenderness), muscle spasm, paraspinal tenderness - Neurological Exam Neurological exam: Present: alert, oriented X3, CN II-XII intact, normal gait, reflexes normal - Psychiatric Psychiatric exam: Present: normal affect, normal mood - Skin Skin exam: Present: warm, dry, intact, normal color. Absent: rash ED Course Vital Signs 08/22/19 01:09 Temperature 97.5 F L Pulse Rate 94 H Respiratory 18 Rate Blood Pressure 131/79 O2 Sat by Pulse 97 Oximetry ED Medical Decision Making - Medical Decision Making This is a 58-year-old -Maur[place] male with a history of hypertension, stroke, coronary artery disease status post acute NC, chronic low back pain with sciatica, chronic alcohol abuse and degenerative lumbar disc disease who presents to the ED with complaint of acute exacerbation of his chronic low back pain that radiates to the left hip for the last 1 week, worse in the last 2 days. Patient states that he has not been able to ambulate even going up the stairs because of the worsening pain. Patient states that Tylenol or ibuprofen occasionally helps control his pain but that in the last 12 hours even taking this medication has not helped his pain. In the ED, patient is alert and oriented x3 and is not in distress. Patient sleeping comfortably in the room and asking for food. Patient was treated in the ED for pain, given grape juice to drink. On reevaluation, patient is sleepy but arousable. Patient's pain is well controlled with medications. Patient will discharge home on pain me dication and advised to follow-up with his primary care physician in 5 to 7 days for reevaluation or return to the ED immediately if symptoms get worse. - Differential Diagnosis Lumbar disc disease; sciatica; muscle spasm; muscle strain; hip DJD Critical care attestation.: If time is entered above; I have spent that time in minutes in the direct care of this critically ill patient, excluding procedure time. ED Disposition Clinical Impression: Acute exacerbation of chronic low back pain, Spasm of muscle of lower back Degenerative joint disease Qualifiers: Osteoarthritis location: hip Osteoarthritis type: unspecified Laterality: left Qualified Code(s): M16.12 - Unilateral primary osteoarthritis, left hip Disposition: TO HOME OR SELFCARE Is pt being admited?: No Does the pt Need Aspirin: No Condition: Stable Instructions: Osteoarthritis (ED), Chronic Back Pain (ED), Sciatica (ED) Additional Instructions: Take medication with food, drink plenty of fluids and follow-up with your primary care physician in 7 to 10 days for reevaluation. Return to the ED immediately if symptoms get worse. Prescriptions: predniSONE [Deltasone] 40 mg PO QDAY #10 tab Ibuprofen [Motrin] 600 mg PO Q8H PRN #30 tablet PRN Reason: Pain Referrals: EDY LAYNE MD [Primary Care Provider] - 3-[address] [facility] [Provider Group] - 3-5 Days MATHEW REAVES MD [Staff Physician] - 3-5 Days Time of Disposition: 03:27 Print Language: NEPALI
== END 2019-08-22 04:28 | disposition home or self-care (01) ==
LOC: ED 00:48
DX: M62.830 Muscle spasm of back (principal); G89.29 Other chronic pain; M16.12 Unilateral primary osteoarthritis, left hip; I25.2 Old myocardial infarction; Z86.73 Personal history of transient ischemic attack (TIA), and cerebral infarction without residual deficits; Z79.899 Other long term (current) drug therapy; Z98.890 Other specified postprocedural states
CPT/HCPCS: 99282; J7512

== ENCOUNTER 2019-09-27 20:25 | Emergency (ER) | payer MEDICAID ==
--- NOTE | 2019-09-27 21:38 | Emergency Department Report ---
Blank Doc - Documentation Documentation: 58*-year-old male that presents with left flanlk pain and abdominal pain with radiation to left leg. This initial assessment/diagnostic orders/clinical plan/treatment(s) is/are subject to change based on patient's health status, clinical progression and re- assessment by fellow clinical providers in the ED. Further treatment and workup at subsequent clinical providers discretion. Patient/guardians urged not to elope from the ED as their condition may be serious if not clinically assessed and managed. Initial orders include: 1- Patient sent to MAIN ED for further evaluation and treatment 2- labs 3- UA
[2019-09-27 21:59] LABS: Hematocrit 44.1 % (35.5-45.6); Hemoglobin 14.9 gm/dl (11.8-15.2); Mean Corpuscular HGB Conc 34 % (32-34); Mean Corpuscular Volume 87 fl (84-94); Platelet Count 167 K/mm3 (140-440); Red Blood Count 5.08 M/mm3 (3.65-5.03); Red Cell Distribution Width 15.8 % (13.2-15.2)
[2019-09-27 22:22] LABS: Alanine Aminotransferase 15 units/L (7-56); Albumin 4.8 g/dL (3.9-5); BUN/Creatinine Ratio 10; Blood Urea Nitrogen 7 mg/dL (9-20); Calcium 9.1 mg/dL (8.4-10.2); Hemolysis Index 12
[2019-09-28 01:29] LABS: Basophils % (Manual) 0 % (0.0-1.8); Total Cells Counted 100
[2019-09-28 01:30] LABS: Target Cells Few
[2019-09-28 01:31] LABS: Platelet Estimate Consistent w Auto
[2019-09-28 04:04] LABS: Bilirubin,Urine NEG (Negative); Blood,Urine NEG (Negative); Color,Urine Straw (Yellow); Protein,Urine <15 mg/dL mg/dL (Negative); RBC,Urine < 1.0 /HPF (0.0-6.0); Urobilinogen,Urine < 2.0 mg/dL (<2.0)
[2019-09-28] MEDS ORDERED: KETOROLAC 60 MG/2 ML INJ IM STA (04:33)
--- NOTE | 2019-09-28 04:38 | Emergency Department Report ---
ED Lower Extremity HPI - General Chief Complaint: Abdominal Pain Stated Complaint: FLANK PAIN Time Seen by Provider: 09/27/19 21:36 Source: patient Mode of arrival: Ambulatory Limitations: Physical Limitation - History of Present Illness Initial Comments: 58-year-old -Thai male presents emerged department complaining of a pre-existing issue with herniated disc resulting in pain to his hip that sometimes radiates down his leg which worsens with range of motion and certain positions and states that it is flaring up at this present time in the home medications he is been utilizing has not been helpful. Reports no loss of bowel or bladder no saddle paresthesia. No recent trauma. Pain is sharp and and burning worse with palpation and various range of motion prolonged ambulating. No dysuria no hematuria no increased urinary urgency or decreased urinary production. MD Complaint: hip injury - Related Data Previous Rx's Medication Instructions Recorded Last Taken Type Folic Acid [Folvite] 1 mg PO QDAY #30 tablet 10/14/18 Unknown Rx Thiamine [Vitamin B-1] 100 mg PO QDAY #30 tablet 10/14/18 Unknown Rx Pantoprazole [Protonix TAB] 40 mg PO QDAY #30 tablet 10/16/18 Unknown Rx Clindamycin [Clindamycin CAP] 600 mg PO BID #10 capsule 12/26/18 Unknown Rx Ibuprofen [Motrin] 600 mg PO Q8H PRN #30 tablet 08/22/19 Unknown Rx predniSONE [Deltasone] 40 mg PO QDAY #10 tab 08/22/19 Unknown Rx Naproxen 500 mg PO Q12H PRN #30 tablet 09/22/19 Unknown Rx traMADoL [Ultram] 50 mg PO Q6HR PRN #12 tablet 09/22/19 Unknown Rx methOCARBAMOL [Robaxin TAB] 750 mg PO Q8H #15 tablet 09/28/19 Unknown Rx predniSONE [Deltasone] 50 mg PO QDAY #5 tab 09/28/19 Unknown Rx traMADoL [Ultram] 50 mg PO Q6HR PRN #14 tablet 09/28/19 Unknown Rx Allergies Allergy/AdvReac Type Severity Reaction Status Date / Time No Known Allergies Allergy Verified 09/25/18 20:10 ED Review of Systems ROS: Stated complaint: FLANK PAIN Other details as noted in HPI Comment: All other systems reviewed and negative ED Past Medical Hx - Past Medical History Previous Medical History?: Yes Hx CVA: Yes (left) Hx Heart Attack/AMI: Yes Hx Congestive Heart Failure: No Hx Diabetes: No Hx Asthma: No Hx COPD: No Hx HIV: No Additional medical history: chronic pain in back, neck and L knee, ETOH abuse. herniated disc - Surgical History Past Surgical History?: Yes Additional Surgical History: Left Knee. skin graft to right hand - Social History Smoking Status: Never Smoker Substance Use Type: Alcohol - Medications Home Medications: Home Medications Medication Instructions Recorded Confirmed Last Taken Type Folic Acid [Folvite] 1 mg PO QDAY #30 tablet 10/14/18 12/24/18 Unknown Rx Thiamine [Vitamin B-1] 100 mg PO QDAY #30 tablet 10/14/18 12/24/18 Unknown Rx Pantoprazole [Protonix TAB] 40 mg PO QDAY #30 tablet 10/16/18 12/24/18 Unknown Rx Clindamycin [Clindamycin CAP] 600 mg PO BID #10 capsule 12/26/18 Unknown Rx Ibuprofen [Motrin] 600 mg PO Q8H PRN #30 tablet 08/22/19 Unknown Rx predniSONE [Deltasone] 40 mg PO QDAY #10 tab 08/22/19 Unknown Rx Naproxen 500 mg PO Q12H PRN #30 tablet 09/22/19 Unknown Rx traMADoL [Ultram] 50 mg PO Q6HR PRN #12 tablet 09/22/19 Unknown Rx methOCARBAMOL [Robaxin TAB] 750 mg PO Q8H #15 tablet 09/28/19 Unknown Rx predniSONE [Deltasone] 50 mg PO QDAY #5 tab 09/28/19 Unknown Rx traMADoL [Ultram] 50 mg PO Q6HR PRN #14 tablet 09/28/19 Unknown Rx ED Physical Exam - General Limitations: Physical Limitation General appearance: alert, in no apparent distress - Head Head exam: Present: atraumatic, normocephalic - Eye Eye exam: Present: normal appearance, PERRL, EOMI Pupils: Present: normal accommodation - ENT ENT exam: Present: normal exam, mucous membranes moist - Neck Neck exam: Present: normal inspection, full ROM, lymphadenopathy - Respiratory Respiratory exam: Present: normal lung sounds bilaterally. Absent: respiratory distress - Cardiovascular Cardiovascular Exam: Present: regular rate, normal rhythm. Absent: systolic murmur, diastolic murmur, rubs, gallop - GI/Abdominal GI/Abdominal exam: Present: soft, normal bowel sounds - Rectal Rectal exam: Present: deferred - Extremities Exam Extremities exam: Present: normal inspection - Back Exam Back exam: Present: normal inspection - Neurological Exam Neurological exam: Present: alert, oriented X3 - Psychiatric Psychiatric exam: Present: normal affect, normal mood - Skin Skin exam: Present: warm, dry, intact, normal color. Absent: rash ED Course Vital Signs 09/27/19 09/27/19 21:19 21:31 Temperature 98.4 F 98.4 F Pulse Rate 105 H 101 H Respiratory 16 18 Rate Blood Pressure 122/74 123/71 O2 Sat by Pulse 94 98 Oximetry ED Lower Extremity MDM - Lab Data Result diagrams: 09/27/19 21:46 09/27/19 21:46 Critical care attestation.: If time is entered above; I have spent that time in minutes in the direct care of this critically ill patient, excluding procedure time. ED Disposition Clinical Impression: Chronic low back pain with left-sided sciatica, Left hip pain Disposition: - TO HOME OR SELFCARE Is pt being admited?: No Does the pt Need Aspirin: No Condition: Stable Instructions: Lumbar Radiculopathy (ED), Arthralgia (ED) Prescriptions: predniSONE [Deltasone] 50 mg PO QDAY #5 tab methOCARBAMOL [Robaxin TAB] 750 mg PO Q8H #15 tablet traMADoL [Ultram] 50 mg PO Q6HR PRN #14 tablet PRN Reason: Pain Referrals: PRIMARY CARE, [Primary Care Provider] - 3-5 Days [facility] [Provider Group] - 3-5 Days
[2019-09-28 07:39] VITALS: BP 112/65
== END 2019-09-28 06:41 | disposition home or self-care (01) ==
LOC: ED 20:25
DX: M25.552 Pain in left hip (principal); M54.42 Lumbago with sciatica, left side; G89.29 Other chronic pain; I25.2 Old myocardial infarction; Z79.899 Other long term (current) drug therapy
CPT/HCPCS: 36415; 80053; 81001; 83690; 85007; 85025; 96372; 99283; J1885

== ENCOUNTER 2019-10-22 23:53 | Emergency (ER) | payer MEDICAID ==
--- NOTE | 2019-10-23 00:47 | XRay Report ---
CHEST 1 VIEW INDICATION / CLINICAL INFORMATION: Chest Pain. COMPARISON: 10/18/2019 FINDINGS: SUPPORT DEVICES: None. HEART / MEDIASTINUM: No significant abnormality. LUNGS / PLEURA: Lungs remain mildly hyperinflated but otherwise clear. No acute pulmonary or pleural disease. No appreciable interval change. No pneumothorax. ADDITIONAL FINDINGS: No significant additional findings. IMPRESSION: 1. No acute pulmonary disease. No interval change. Signer Name: Poly Lazo MD Signed: 10/23/2019 12:43 AM Workstation Name: [id number]
[2019-10-23 01:10] LABS: Hematocrit 43.4 % (35.5-45.6); Hemoglobin 14.3 gm/dl (11.8-15.2); Mean Corpuscular HGB Conc 33 % (32-34); Mean Corpuscular Volume 87 fl (84-94); Platelet Count 127 K/mm3 (140-440); Red Blood Count 5.01 M/mm3 (3.65-5.03); Red Cell Distribution Width 16.2 % (13.2-15.2)
[2019-10-23 01:15] LABS: BUN/Creatinine Ratio 10; Blood Urea Nitrogen 8 mg/dL (9-20); Calcium 8.5 mg/dL (8.4-10.2); Hemolysis Index 13
[2019-10-23 05:51] LABS: Anisocytosis 1+; Basophils % (Manual) 0 % (0.0-1.8); Eosinophils % (Manual) 0 % (0.0-4.3); Total Cells Counted 100
[2019-10-23 05:52] LABS: Platelet Estimate Consistent w Auto
--- NOTE | 2019-10-23 09:24 | Emergency Department Report ---
ED General Adult HPI - General Chief complaint: Chest Pain Stated complaint: CHEST PAIN, DIFFICULTY IN BREATHING PUI?: No Time Seen by Provider: 10/23/19 08:29 Source: patient, RN notes reviewed, old records reviewed Mode of arrival: Stretcher (Patient ambulated patient typically ambulates with a walker) Limitations: Other (Patient is intoxicated) - History of Present Illness Initial comments: The patient is a 58-year-old gentleman whom I evaluated in the past, had an unremarkable cardiac catheterization within the past month, and multiple negative D-dimers. The patient also has a history of alcoholism, may have a history of homelessness. He presents to the ER with a complaint of nontraumatic acute alcohol intoxication, chronic central and left-sided chest pain, and chronic shortness of breath. He is not homicidal or suicidal. He is asking to eat and drink. He is also asking to speak to a rn case manager hospice or social worker masters to assist him with a place to stay. -: days(s), week(s), month(s) Location: chest Consistency: constant Improves with: none Worsens with: none - Related Data Previous Rx's Medication Instructions Recorded Last Taken Type predniSONE [Deltasone] 40 mg PO QDAY #10 tab 10/12/19 Unknown Rx Aspirin 325 mg PO QDAY #30 tablet 10/23/19 Unknown Rx Folic Acid [Folvite] 1 mg PO QDAY #30 tablet 10/23/19 Unknown Rx Metoprolol [Lopressor TAB] 25 mg PO BID #60 tablet 10/23/19 Unknown Rx Pantoprazole [Protonix TAB] 40 mg PO QDAY #30 tablet 10/23/19 Unknown Rx Thiamine [Vitamin B-1] 100 mg PO QDAY #30 tablet 10/23/19 Unknown Rx Allergies Allergy/AdvReac Type Severity Reaction Status Date / Time No Known Allergies Allergy Verified 09/25/18 20:10 ED Review of Systems ROS: Stated complaint: CHEST PAIN, DIFFICULTY IN BREATHING Other details as noted in HPI Constitutional: denies: fever Respiratory: cough Cardiovascular: chest pain Gastrointestinal: denies: abdominal pain Psychiatric: denies: homicidal thoughts, suicidal thoughts ED Past Medical Hx - Past Medical History Previous Medical History?: Yes Hx CVA: Yes (left) Hx Heart Attack/AMI: Yes Hx Congestive Heart Failure: No Hx Diabetes: No Hx Asthma: No Hx COPD: No Hx HIV: No Additional medical history: chronic pain in back, neck and L knee, ETOH abuse. herniated disc - Surgical History Past Surgical History?: Yes Additional Surgical History: Left Knee. skin graft to right hand - Social History Smoking Status: Never Smoker Substance Use Type: Alcohol - Medications Home Medications: Home Medications Medication Instructions Recorded Confirmed Last Taken Type predniSONE [Deltasone] 40 mg PO QDAY #10 tab 10/12/19 Unknown Rx Aspirin 325 mg PO QDAY #30 tablet 10/23/19 Unknown Rx Folic Acid [Folvite] 1 mg PO QDAY #30 tablet 10/23/19 Unknown Rx Metoprolol [Lopressor TAB] 25 mg PO BID #60 tablet 10/23/19 Unknown Rx Pantoprazole [Protonix TAB] 40 mg PO QDAY #30 tablet 10/23/19 Unknown Rx Thiamine [Vitamin B-1] 100 mg PO QDAY #30 tablet 10/23/19 Unknown Rx ED Physical Exam - General Limitations: Other (The patient is intoxicated) General appearance: alert, appears intoxicated - Head Head exam: Present: atraumatic, normocephalic - Eye Eye exam: Present: normal appearance, EOMI. Absent: nystagmus - ENT ENT exam: Present: normal exam, normal orophraynx, mucous membranes moist, normal external ear exam - Neck Neck exam: Present: normal inspection, full ROM. Absent: tenderness, meningismus - Respiratory Respiratory exam: Present: normal lung sounds bilaterally. Absent: respiratory distress, decreased breath sounds - Cardiovascular Cardiovascular Exam: Present: regular rate, normal rhythm, normal heart sounds. Absent: bradycardia, tachycardia, irregular rhythm, systolic murmur, diastolic murmur, rubs, gallop - GI/Abdominal GI/Abdominal exam: Present: soft. Absent: distended, tenderness, guarding, rebound, rigid, pulsatile mass - Rectal Rectal exam: Present: deferred - Extremities Exam Extremities exam: Present: normal inspection, full ROM, other (2+ pulses noted in the bilateral upper and lower extremities. There is no palpable cord. negative Homans sign. Muscular compartments are soft. The pelvis is stable.). Absent: calf tenderness - Back Exam Back exam: Present: normal inspection, full ROM. Absent: tenderness, CVA tenderness (R), CVA tenderness (L), paraspinal tenderness, vertebral tenderness - Neurological Exam Neurological exam: Present: alert, other (No facial droop. Tongue midline. Extraocular movements intact bilaterally. Facial sensation intact to light touch in V1, V2, V3 distribution bilaterally. 5 and a 5 strength in 4 extremities. Sensation intact to light touch in 4 extremities.) - Psychiatric Psychiatric exam: Absent: homicidal ideation, suicidal ideation - Skin Skin exam: Present: warm, dry, intact, normal color. Absent: rash ED Course Vital Signs 10/23/19 10/23/19 10/23/19 00:08 07:53 10:04 Temperature 98.0 F 97.4 F L Pulse Rate 107 H 96 H 77 Respiratory 20 18 Rate Blood Pressure 97/74 139/92 130/89 O2 Sat by Pulse 96 96 Oximetry - Reevaluation(s) Reevaluation #1: 10/23/19 12:57 Patient reassessed multiple times, and he is not in any acute distress. He has been in this department for approximately 13 hours secondary to alcohol intoxication without acute decompensation. He is clinically sober at this time. Multiple troponins have been negative and unchanged from prior. He will be discharged with instructions to follow-up, he can wait in the waiting room to speak to case management. ED Medical Decision Making - Lab Data Result diagrams: 10/23/19 00:26 10/23/19 00:26 Vital Signs 10/23/19 10/23/19 10/23/19 00:08 07:53 10:04 Temperature 98.0 F 97.4 F L Pulse Rate 107 H 96 H 77 Respiratory 20 18 Rate Blood Pressure 97/74 139/92 130/89 O2 Sat by Pulse 96 96 Oximetry Lab Results 10/23/19 10/23/19 10/23/19 Range/Units 00:26 00:26 00:26 WBC 3.2 L (4.5-11.0) K/mm3 RBC 5.01 (3.65-5.03) M/mm3 Hgb 14.3 (11.8-15.2) gm/dl Hct 43.4 (35.5-45.6) % MCV 87 (84-94) fl MCH 29 (28-32) pg MCHC 33 (32-34) % RDW 16.2 H (13.2-15.2) % Plt Count 127 L (140-440) K/mm3 Lymph % (Auto) Nurse Transitional Baso % (Auto) Nurse Transitional Add Manual Diff Complete Total Counted 100 Seg Neutrophils % Nurse Transitional Seg Neuts % (Manual) 31.0 L (40.0-70.0) % Band Neutrophils % 0 % Lymphocytes % (Manual) 63.0 H (13.4-35.0) % Reactive Lymphs % (Man) 0 % Monocytes % (Manual) 6.0 (0.0-7.3) % Eosinophils % (Manual) 0 (0.0-4.3) % Basophils % (Manual) 0 (0.0-1.8) % Metamyelocytes % 0 % Myelocytes % 0 % Promyelocytes % 0 % Blast Cells % 0 % Nucleated RBC % Not Reportable Seg Neutrophils # Man 1.0 L (1.8-7.7) K/mm3 Band Neutrophils # 0.0 K/mm3 Lymphocytes # (Manual) 2.0 (1.2-5.4) K/mm3 Abs React Lymphs (Man) 0.0 K/mm3 Monocytes # (Manual) 0.2 (0.0-0.8) K/mm3 Eosinophils # (Manual) 0.0 (0.0-0.4) K/mm3 Basophils # (Manual) 0.0 (0.0-0.1) K/mm3 Metamyelocytes # 0.0 K/mm3 Myelocytes # 0.0 K/mm3 Promyelocytes # 0.0 K/mm3 Blast Cells # 0.0 K/mm3 WBC Morphology Not Reportable Hypersegmented Neuts Not Reportable Hyposegmented Neuts Not Reportable Hypogranular Neuts Not Reportable Smudge Cells Not Reportable Toxic Granulation Not Reportable Toxic Vacuolation Not Reportable Dohle Bodies Not Reportable Pelger-Huet Anomaly Not Reportable Katie Rods Not Reportable Platelet Estimate Consistent w auto Clumped Platelets Not Reportable Plt Clumps, EDTA Not Reportable Large Platelets Not Reportable Giant Platelets Not Reportable Platelet Satelliting Not Reportable Plt Morphology Comment Not Reportable RBC Morphology Not Reportable Dimorphic RBCs Not Reportable Polychromasia Not Reportable Hypochromasia Not Reportable Poikilocytosis Not Reportable Anisocytosis 1+ Microcytosis Not Reportable Macrocytosis Not Reportable Spherocytes Not Reportable Pappenheimer Bodies Not Reportable Sickle Cells Not Reportable Target Cells Not Reportable Tear Drop Cells Not Reportable Ovalocytes Not Reportable Helmet Cells Not Reportable Torres-[place] Bodies Not Reportable [place] Rings Not Reportable Lisa Cells Not Reportable Bite Cells Not Reportable Crenated Cell Not Reportable Elliptocytes Not Reportable Acanthocytes (Spur) Not Reportable Rouleaux Not Reportable Hemoglobin C Crystals Not Reportable Schistocytes Not Reportable Malaria parasites Not Reportable Connor Bodies Not Reportable Hem Pathologist Commnt No Sodium 143 (137-145) mmol/L Potassium 4.1 (3.6-5.0) mmol/L Chloride 103.2 (98-107) mmol/L Carbon Dioxide 22 (22-30) mmol/L Anion Gap 22 mmol/L BUN 8 L (9-20) mg/dL Creatinine 0.8 (0.8-1.3) mg/dL Estimated GFR > 60 ml/min BUN/Creatinine Ratio 10 % Glucose 103 H (75-100) mg/dL Calcium 8.5 (8.4-10.2) mg/dL Magnesium (1.7-2.3) mg/dL Total Creatine Kinase (55-170) units/L Troponin T < 0.010 (0.00-0.029) ng/mL Plasma/Serum Alcohol 0.38 H (0-0.07) % 10/23/19 10/23/19 Range/Units 06:15 06:15 WBC (4.5-11.0) K/mm3 RBC (3.65-5.03) M/mm3 Hgb (11.8-15.2) gm/dl Hct (35.5-45.6) % MCV (84-94) fl MCH (28-32) pg MCHC (32-34) % RDW (13.2-15.2) % Plt Count (140-440) K/mm3 Lymph % (Auto) Baso % (Auto) Add Manual Diff Total Counted Seg Neutrophils % Seg Neuts % (Manual) (40.0-70.0) % Band Neutrophils % % Lymphocytes % (Manual) (13.4-35.0) % Reactive Lymphs % (Man) % Monocytes % (Manual) (0.0-7.3) % Eosinophils % (Manual) (0.0-4.3) % Basophils % (Manual) (0.0-1.8) % Metamyelocytes % % Myelocytes % % Promyelocytes % % Blast Cells % % Nucleated RBC % Seg Neutrophils # Man (1.8-7.7) K/mm3 Band Neutrophils # K/mm3 Lymphocytes # (Manual) (1.2-5.4) K/mm3 Abs React Lymphs (Man) K/mm3 Monocytes # (Manual) (0.0-0.8) K/mm3 Eosinophils # (Manual) (0.0-0.4) K/mm3 Basophils # (Manual) (0.0-0.1) K/mm3 Metamyelocytes # K/mm3 Myelocytes # K/mm3 Promyelocytes # K/mm3 Blast Cells # K/mm3 WBC Morphology Hypersegmented Neuts Hyposegmented Neuts Hypogranular Neuts Smudge Cells Toxic Granulation Toxic Vacuolation Dohle Bodies Pelger-Huet Anomaly Katie Rods Platelet Estimate Clumped Platelets Plt Clumps, EDTA Large Platelets Giant Platelets Platelet Satelliting Plt Morphology Comment RBC Morphology Dimorphic RBCs Polychromasia Hypochromasia Poikilocytosis Anisocytosis Microcytosis Macrocytosis Spherocytes Pappenheimer Bodies Sickle Cells Target Cells Tear Drop Cells Ovalocytes Helmet Cells Torres-[place]mont Bodies New Era Rings [place] Cells Bite Cells Crenated Cell Elliptocytes Acanthocytes (Spur) Rouleaux Hemoglobin C Crystals Schistocytes Malaria parasites Connor Bodies Hem Pathologist Commnt Sodium (137-145) mmol/L Potassium (3.6-5.0) mmol/L Chloride (98-107) mmol/L Carbon Dioxide (22-30) mmol/L Anion Gap mmol/L BUN (9-20) mg/dL Creatinine (0.8-1.3) mg/dL Estimated GFR ml/min BUN/Creatinine Ratio % Glucose (75-100) mg/dL Calcium (8.4-10.2) mg/dL Magnesium 2.50 H (1.7-2.3) mg/dL Total Creatine Kinase 145 (55-170) units/L Troponin T < 0.010 (0.00-0.029) ng/mL Plasma/Serum Alcohol (0-0.07) % - EKG Data -: EKG Interpreted by Mi EKG shows normal: sinus rhythm Rate: tachycardia - EKG Data When compared to previous EKG there are: no significant change Interpretation: unchanged when compared t (October 21, 2019) 08/15/20 11:26 Sinus rhythm, tachycardia, 102 bpm, normal axis, [place] interval prolonged, poor R wave progression, left ventricular hypertrophy. Abnormal EKG. Not a STEMI. Unchanged from prior - Radiology Data Radiology results: report reviewed, image reviewed X-ray of the chest is negative for acute disease - Medical Decision Making Differential diagnosis, including but not limited to: Chronic chest pain, homelessness, case management patient, alcohol intoxication Assessment and plan: 58-year-old gentleman whom I have evaluated multiple times in the past, recently had a negative cardiac catheterization, multiple negative recent D-dimers, who is sleeping comfortably in his stretcher, intoxicated, with no evidence of blunt trauma to the head and/or neck, who is not homicidal or suicidal, presenting with a complaint of chronic chest pain and social issues. Laboratory studies appear to show chronic findings. His EKG is unchanged from prior, troponins, which were ordered prior to my personal evaluation of this pa tient were negative as expected. The patient does not meet criteria for hospitalization medically. He does not meet criteria for psychiatric hold. We will continue his medications. As a courtesy, I will place a case management consultation, however, if the patient catherine up, he can wait in the waiting room pending their evaluation. He is typically able to ambulate without need for significant assistance, and he does not meet criteria for hospitalization or psychiatric hold at this time. Critical care attestation.: If time is entered above; I have spent that time in minutes in the direct care of this critically ill patient, excluding procedure time. ED Disposition Clinical Impression: Alcoholism, Case management patient, Chronic chest pain Disposition: DC-01 TO HOME OR SELFCARE Is pt being admited?: No Does the pt Need Aspirin: No Condition: Good Instructions: Chest Pain (ED) Additional Instructions: Please minimize and avoid consumption of alcohol. Long-term consumption of alcohol may cause addiction, organ dysfunction, loss of quality of life. Take the prescribed medications as needed and directed. Avoid consumption of Motrin, ibuprofen, Naprosyn, Aleve, heavy and spicy foods. Please follow-up with a primary care doctor within the next month. Please return to the emergency room right away with new pain, worsening pain, migration of pain, rectal vomiting, change in mental status, confusion, inability to tolerate liquid feeds, new, worsened or different symptoms not present on the initial emergency room evaluation. Prescriptions: Aspirin 325 mg PO QDAY #30 tablet Folic Acid [Folvite] 1 mg PO QDAY #30 tablet Metoprolol [Lopressor TAB] 25 mg PO BID #60 tablet Pantoprazole [Protonix TAB] 40 mg PO QDAY #30 tablet Thiamine [Vitamin B-1] 100 mg PO QDAY #30 tablet Referrals: MATHEW REAVES MD [Staff Physician] - 3-5 Days [facility] [Provider Group] - 3-5 Days
[2019-10-23] MEDS ORDERED: IBUPROFEN 600 MG TAB PO PRN (09:39)
[2019-10-23] MEDS ORDERED: LORazepam 2 MG/ML VIAL IV PRN (09:39)
[2019-10-23] MEDS ORDERED: LORazepam 2 MG TAB PO PRN ×2 (09:39)
[2019-10-23] MEDS ORDERED: chlordiazePOXIDE 25 MG CAP PO PRN ×2 (09:39)
[2019-10-23] MEDS ORDERED: ASPIRIN 325 MG TAB PO SCH (10:00)
[2019-10-23] MEDS ORDERED: METOPROLOL TARTRATE 25 MG TAB PO SCH (10:00)
[2019-10-23] MEDS ORDERED: FOLIC ACID 1 MG TAB PO SCH (10:00)
[2019-10-23] MEDS ORDERED: THIAMINE 100 MG TAB PO SCH (10:00)
[2019-10-23] MEDS ORDERED: PANTOPRAZOLE 40 MG TAB PO SCH (10:00)
[2019-10-23 13:13] VITALS: BP 132/82
== END 2019-10-23 13:13 | disposition home or self-care (01) ==
LOC: ED 23:53
DX: R07.89 Other chest pain (principal); G89.29 Other chronic pain; F10.20 Alcohol dependence, uncomplicated; I25.2 Old myocardial infarction; Z86.73 Personal history of transient ischemic attack (TIA), and cerebral infarction without residual deficits; Z98.890 Other specified postprocedural states; Z79.899 Other long term (current) drug therapy
CPT/HCPCS: 36415; 71045; 80048; 80320; 82550; 83735; 84484; 85007; 85025; 93005; G0480

== ENCOUNTER 2019-10-26 22:40 | Emergency (ER) | payer MEDICAID ==
[2019-10-26] MEDS ORDERED: ASPIRIN 325 MG TAB PO ONE (22:48)
[2019-10-26 22:49] VITALS: BP 137/82
--- NOTE | 2019-10-26 23:36 | XRay Report ---
CHEST 1 VIEW INDICATION / CLINICAL INFORMATION: Chest Pain. COMPARISON: 10/23/2019 FINDINGS: SUPPORT DEVICES: None. HEART / MEDIASTINUM: No significant abnormality. LUNGS / PLEURA: No significant pulmonary or pleural abnormality. No pneumothorax. ADDITIONAL FINDINGS: No significant additional findings. IMPRESSION: 1. No acute findings. No interval change. Signer Name: Poly Lazo MD Signed: 10/26/2019 11:32 PM Workstation Name: [id number]
[2019-10-26 23:54] LABS: Hematocrit 40.9 % (35.5-45.6); Hemoglobin 13.8 gm/dl (11.8-15.2); Mean Corpuscular HGB Conc 34 % (32-34); Mean Corpuscular Volume 87 fl (84-94); Red Blood Count 4.71 M/mm3 (3.65-5.03); Red Cell Distribution Width 15.9 % (13.2-15.2)
[2019-10-27 00:09] LABS: Platelet Count 61 K/mm3 (140-440)
[2019-10-27 00:15] LABS: BUN/Creatinine Ratio 10; Blood Urea Nitrogen 8 mg/dL (9-20); Hemolysis Index 7
[2019-10-27 07:42] LABS: Total Cells Counted 100
[2019-10-27 07:43] LABS: Anisocytosis Few; Basophils % (Manual) 0 % (0.0-1.8); Eosinophils % (Manual) 0 % (0.0-4.3); Target Cells Rare
[2019-10-27 07:44] LABS: Platelet Estimate Consistent w Auto
[2019-10-27] MEDS ORDERED: ALUM-MAG HYDROXIDE-SIMETHICONE 200-200-20MG/5ML ORAL LIQD 30 ML PO ONE (10:32)
[2019-10-27] MEDS ORDERED: LIDOCAINE VISCOUS 2% 15 ML ORAL LIQD PO ONE (10:32)
--- NOTE | 2019-10-27 10:37 | Emergency Department Report ---
ED Chest Pain HPI - General Chief Complaint: Chest Pain Stated Complaint: CHEST PAIN Time Seen by Provider: 10/27/19 10:19 Source: patient Mode of arrival: Ambulatory Limitations: No Limitations - History of Present Illness Initial Comments: Patient is 58 years old male with history of chronic alcohol abuse. Patient is familiar to me since I saw him several times for same complaint. Patient presented to the ER complaining of chest pain. Patient describes his pain as substernal and burning sensation with radiation to his chest however there is no radiation to the left side of the chest. Patient stated that pain started after he drink beer yesterday. Patient had a unremarkable cardiac catheterization beginning of this month. Patient denied any fever, chills, cough or shortness of breath. MD Complaint: chest pain -: Last night Onset: during rest Pain Location: substernal Quality: aching Consistency: intermittent - Related Data Previous Rx's Medication Instructions Recorded Last Taken Type predniSONE [Deltasone] 40 mg PO QDAY #10 tab 10/12/19 Unknown Rx Aspirin 325 mg PO QDAY #30 tablet 10/23/19 Unknown Rx Folic Acid [Folvite] 1 mg PO QDAY #30 tablet 10/23/19 Unknown Rx Metoprolol [Lopressor TAB] 25 mg PO BID #60 tablet 10/23/19 Unknown Rx Pantoprazole [Protonix TAB] 40 mg PO QDAY #30 tablet 10/23/19 Unknown Rx Thiamine [Vitamin B-1] 100 mg PO QDAY #30 tablet 10/23/19 Unknown Rx Allergies Allergy/AdvReac Type Severity Reaction Status Date / Time No Known Allergies Allergy Verified 09/25/18 20:10 Heart Score - HEART Score History: Slightly suspicious EKG: Non-specific Age: 45-65 Risk factors: 1-2 risk factors Troponin: < normal limit HEART Score: 3 - Critical Actions Critical Actions: 0-3 pts:0.9-1.7%risk of adverse cardiac event.Candidate for d ischarge ED Review of Systems ROS: Stated complaint: CHEST PAIN Other details as noted in HPI Comment: All other systems reviewed and negative Constitutional: denies: chills, fever Respiratory: denies: cough, shortness of breath, SOB with exertion Cardiovascular: denies: chest pain Gastrointestinal: denies: abdominal pain, nausea, vomiting Neurological: denies: headache, weakness ED Past Medical Hx - Past Medical History Previous Medical History?: Yes Hx CVA: Yes (left) Hx Heart Attack/AMI: Yes Hx Congestive Heart Failure: No Hx Diabetes: No Hx Asthma: No Hx COPD: No Hx HIV: No Additional medical history: chronic pain in back, neck and L knee, ETOH abuse. herniated disc - Surgical History Past Surgical History?: Yes Additional Surgical History: Left Knee. skin graft to right hand - Social History Smoking Status: Never Smoker Substance Use Type: None - Medications Home Medications: Home Medications Medication Instructions Recorded Confirmed Last Taken Type predniSONE [Deltasone] 40 mg PO QDAY #10 tab 10/12/19 Unknown Rx Aspirin 325 mg PO QDAY #30 tablet 10/23/19 Unknown Rx Folic Acid [Folvite] 1 mg PO QDAY #30 tablet 10/23/19 Unknown Rx Metoprolol [Lopressor TAB] 25 mg PO BID #60 tablet 10/23/19 Unknown Rx Pantoprazole [Protonix TAB] 40 mg PO QDAY #30 tablet 10/23/19 Unknown Rx Thiamine [Vitamin B-1] 100 mg PO QDAY #30 tablet 10/23/19 Unknown Rx ED Physical Exam - General Limitations: No Limitations General appearance: alert, in no apparent distress - Head Head exam: Present: atraumatic, normocephalic, normal inspection - Eye Eye exam: Present: normal appearance Pupils: Present: normal accommodation - ENT ENT exam: Present: normal exam, normal orophraynx, mucous membranes moist - Neck Neck exam: Present: normal inspection, full ROM. Absent: tenderness, meningismus, lymphadenopathy, thyromegaly - Respiratory Respiratory exam: Present: normal lung sounds bilaterally - Cardiovascular Cardiovascular Exam: Present: regular rate, normal rhythm, normal heart sounds - GI/Abdominal GI/Abdominal exam: Present: soft, normal bowel sounds. Absent: distended, tenderness, guarding, rebound, rigid, organomegaly, mass, bruit, pulsatile mass, hernia - Extremities Exam Extremities exam: Present: normal inspection, full ROM, normal capillary refill. Absent: pedal edema, calf tenderness - Back Exam Back exam: Present: normal inspection, full ROM. Absent: CVA tenderness (R), CVA tenderness (L) - Neurological Exam Neurological exam: Present: alert, oriented X3, CN II-XII intact, normal gait, reflexes normal - Psychiatric Psychiatric exam: Present: normal mood - Skin Skin exam: Present: warm, intact, normal color ED Course Vital Signs 10/26/19 22:45 Temperature 97.9 F Pulse Rate 120 H Respiratory 16 Rate Blood Pressure 137/82 O2 Sat by Pulse 97 Oximetry MERT score - Mert Score Age > 65: (0) No Aspirin use within the Past 7 Days: (0) No 3 or more CAD Risk Factors: (1) Yes 2 or more Angina events in past 24 hrs: (1) Yes Known CAD with more than 50% Stenosis: (0) No Elevated Cardiac Markers: (0) No ST Deviation Greater than 0.5mm: (0) No MERT Score: 2 ED Medical Decision Making - Lab Data Result diagrams: 10/26/19 23:25 10/26/19 23:25 - EKG Data -: EKG Interpreted by Me EKG shows normal: sinus rhythm Rate: tachycardia - EKG Data Interpretation: no acute changes - Radiology Data Radiology results: report reviewed - Medical Decision Making Patient is 58 years old male with history of chronic alcohol abuse. Patient is familiar to me since I saw him several times for same complaint. Patient presented to the ER complaining of chest pain. Patient describes his pain as substernal and burning sensation with radiation to his chest however there is no radiation to the left side of the chest. Patient stated that pain started after he drink beer yesterday. Patient had a unremarkable cardiac catheterization beginning of this month. Patient denied any fever, chills, cough or shortness of breath. Patient stated that his chest pain is completely resolved now. EKG shows sinus tachycardia no ST elevation. Chest x-ray is unremarkable. Troponin is negative x3. I believe patient chest pain is most likely related to alcoholic gastritis. Patient counseled about alcohol and he stated that he want to quit on his own. Patient is obviously homeless. Patient advised to follow-up with his primary care physician and to return to the ER if he develop any new symptoms. Critical care attestation.: If time is entered above; I have spent that time in minutes in the direct care of this critically ill patient, excluding procedure time. ED Disposition Clinical Impression: Chest pain, Alcoholism, Alcoholic gastritis Disposition: DC- TO HOME OR SELFCARE Is pt being admited?: No Condition: Stable Instructions: Chest Pain (ED) Referrals: PRIMARY CARE, [Primary Care Provider] - 3-5 Days
== END 2019-10-27 11:00 | disposition home or self-care (01) ==
LOC: ED 22:40
DX: K29.20 Alcoholic gastritis without bleeding (principal); R07.89 Other chest pain; I25.2 Old myocardial infarction; Z98.890 Other specified postprocedural states; Z79.899 Other long term (current) drug therapy
CPT/HCPCS: 36415; 71045; 80048; 84484; 85007; 85025; 93005

== ENCOUNTER 2019-10-27 21:05 | Emergency (ER) | payer MEDICAID ==
[2019-10-28 07:55] VITALS: BP 121/78
--- NOTE | 2019-10-28 07:59 | Emergency Department Report ---
HPI - General Chief Complaint: Chest Pain PUI?: No Time Seen by Provider: 10/28/19 07:48 - HPI HPI: Room 3 The patient is a 58-year-old male present with a chief complaint of chest pain. The patient states he developed some pinching pain in his chest last night. Patient states the pain is been intermittent but has since resolved since he is come back to an exam room. Patient states he did get short of breath and experienced nausea and vomiting with this chest pain. Patient denies diaphoresis, fever or cough. The patient was seen in this emergency department multiple times this month for chest pain and had a cardiac catheterization performed 10/11/2019 which showed mild diffuse irregularities of the RCA with a 50% stenosis in a distal branch just past the takeoff of the PDA. Medical management was recommended. The patient states he has not yet followed up with his field specialist. The patient states he does not wish to have anymore blood drawn and refuses it for this ED visit. Patient then signed out AMA ED Past Medical Hx - Past Medical History Hx CVA: Yes (left) Hx Heart Attack/AMI: Yes Additional medical history: chronic pain in back, neck and L knee, ETOH abuse. herniated disc - Surgical History Additional Surgical History: Left Knee. skin graft to right hand - Family History Family history: no significant - Social History Smoking Status: Never Smoker Substance Use Type: None (Denies illicit drug use), Alcohol - Medications Home Medications: Home Medications Medication Instructions Recorded Confirmed Last Taken Type predniSONE [Deltasone] 40 mg PO QDAY #10 tab 10/12/19 Unknown Rx Aspirin 325 mg PO QDAY #30 tablet 10/23/19 Unknown Rx Folic Acid [Folvite] 1 mg PO QDAY #30 tablet 10/23/19 Unknown Rx Metoprolol [Lopressor TAB] 25 mg PO BID #60 tablet 10/23/19 Unknown Rx Pantoprazole [Protonix TAB] 40 mg PO QDAY #30 tablet 10/23/19 Unknown Rx Thiamine [Vitamin B-1] 100 mg PO QDAY #30 tablet 10/23/19 Unknown Rx ED Review of Systems ROS: Stated complaint: CHEST PAIN Other details as noted in HPI Constitutional: no symptoms reported Respiratory: shortness of breath Cardiovascular: chest pain Gastrointestinal: nausea, vomiting Physical Exam - Physical Exam Vital Signs: Vital Signs 10/28/19 10/28/19 07:53 07:54 Pulse Rate 80 Respiratory 20 20 Rate Blood Pressure 121/78 [Left] O2 Sat by Pulse 98 98 Oximetry Physical Exam: GENERAL: The patient is well-developed well-nourished male lying on stretcher not appearing to be in acute distress. [] HEENT: Normocephalic. Atraumatic. Extraocular motions are intact. Patient has moist mucous membranes. NECK: Supple. Trachea midline CHEST/LUNGS: Clear to auscultation. There is no respiratory distress noted. HEART/CARDIOVASCULAR: Regular. There is no tachycardia. There is no gallop rub or murmur. ABDOMEN: Abdomen is soft, nontender. Patient has normal bowel sounds. There is no abdominal distention. SKIN: There is no rash. There is no edema. There is no diaphoresis. NEURO: The patient is awake, alert, and oriented. The patient is cooperative. The patient has normal speech MUSCULOSKELETAL: There is no evidence of acute injury. ED Course Vital Signs 10/28/19 10/28/19 07:53 07:54 Pulse Rate 80 Respiratory 20 20 Rate Blood Pressure 121/78 [Left] O2 Sat by Pulse 98 98 Oximetry ED Medical Decision Making - EKG Data -: EKG Interpreted by Ri EKG shows normal: sinus rhythm Rate: normal - EKG Data When compared to previous EKG there are: no significant change Interpretation: other (No ischemic changes seen) - Differential Diagnosis ACS, PE, pericarditis, GERD Critical care attestation.: If time is entered above; I have spent that time in minutes in the direct care of this critically ill patient, excluding procedure time. ED Disposition Clinical Impression: Chest pain Disposition: LEFT AGAINST MED ADVICE Is pt being admited?: No Does the pt Need Aspirin: Yes Condition: Fair Instructions: Chest Pain (ED) Referrals: PRIMARY CARE, [Primary Care Provider] - 3-5 Days Time of Disposition: 08:05 (Patient leaving AMA)
== END 2019-10-28 08:05 | disposition left against medical advice (07) ==
LOC: ED 21:05
DX: R07.89 Other chest pain (principal); I25.2 Old myocardial infarction; Z86.73 Personal history of transient ischemic attack (TIA), and cerebral infarction without residual deficits; Z79.899 Other long term (current) drug therapy; Z98.890 Other specified postprocedural states
CPT/HCPCS: 93005; 99282

== ENCOUNTER 2019-10-29 01:43 | Emergency (ER) | payer MEDICAID ==
[2019-10-29 03:14] LABS: Mean Corpuscular HGB Conc 33 % (32-34); Mean Corpuscular Volume 86 fl (84-94); Red Blood Count 5.21 M/mm3 (3.65-5.03); Red Cell Distribution Width 16.2 % (13.2-15.2)
[2019-10-29 03:25] LABS: Platelet Count 53 K/mm3 (140-440)
--- NOTE | 2019-10-29 03:26 | XRay Report ---
CHEST 1 VIEW INDICATION / CLINICAL INFORMATION: Chest Pain. COMPARISON: 10/26/2019 FINDINGS: SUPPORT DEVICES: None. HEART / MEDIASTINUM: No significant abnormality. LUNGS / PLEURA: No significant pulmonary or pleural abnormality. No pneumothorax. ADDITIONAL FINDINGS: No significant additional findings. IMPRESSION: 1. No acute findings. No interval change. Signer Name: Poly Lazo MD Signed: 10/29/2019 3:22 AM Workstation Name: [id number]
[2019-10-29 03:37] LABS: Blood Urea Nitrogen 7 mg/dL (9-20); Calcium 9.1 mg/dL (8.4-10.2); Hemolysis Index 108
[2019-10-29 03:40] LABS: BUN/Creatinine Ratio 10
[2019-10-29 06:34] LABS: Basophils % (Manual) 0 % (0.0-1.8); Eosinophils % (Manual) 0 % (0.0-4.3); Hypochromasia Few; Platelet Estimate Consistent w Auto; Target Cells Few; Total Cells Counted 100
--- NOTE | 2019-10-29 08:09 | Emergency Department Report ---
HPI - General Chief Complaint: Chest Pain Time Seen by Provider: 10/29/19 07:56 - [facility] HPI: Room 25 The patient is a 58-year-old male present with a chief complaint of chest pain. The patient was seen by myself yesterday but signed out AMA because he did not want blood work drawn. The patient states he returned to the emergency department today because last night he had 60 seconds worth of chest pain associated with nausea but no vomiting. Patient denies shortness of breath or diaphoresis. Patient denies fever or cough. ED Past Medical Hx - Past Medical History Previous Medical History?: Yes Hx CVA: Yes (left) Hx Heart Attack/AMI: Yes Additional medical history: chronic pain in back, neck and L knee, ETOH abuse. herniated disc - Surgical History Past Surgical History?: Yes Additional Surgical History: Left Knee. skin graft to right hand - Family History Family history: no significant - Social History Smoking Status: Never Smoker Substance Use Type: Alcohol - Medications Home Medications: Home Medications Medication Instructions Recorded Confirmed Last Taken Type predniSONE [Deltasone] 40 mg PO QDAY #10 tab 10/12/19 Unknown Rx Aspirin 325 mg PO QDAY #30 tablet 10/23/19 Unknown Rx Folic Acid [Folvite] 1 mg PO QDAY #30 tablet 10/23/19 Unknown Rx Metoprolol [Lopressor TAB] 25 mg PO BID #60 tablet 10/23/19 Unknown Rx Pantoprazole [Protonix TAB] 40 mg PO QDAY #30 tablet 10/23/19 Unknown Rx Thiamine [Vitamin B-1] 100 mg PO QDAY #30 tablet 10/23/19 Unknown Rx ED Review of Systems ROS: Stated complaint: CHEST PAIN Other details as noted in HPI Constitutional: denies: diaphoresis Respiratory: no symptoms reported Cardiovascular: chest pain Endocrine: no symptoms reported Gastrointestinal: nausea. denies: vomiting Physical Exam - Physical Exam Vital Signs: Vital Signs 10/29/19 01:48 Temperature 98.0 F Pulse Rate 93 H Respiratory 18 Rate Blood Pressure 131/92 O2 Sat by Pulse 94 Oximetry Physical Exam: GENERAL: The patient is well-developed well-nourished male lying on stretcher not appearing to be in acute distress. [] HEENT: Normocephalic. Atraumatic. Extraocular motions are intact. Patient has moist mucous membranes. NECK: Supple. Trachea midline CHEST/LUNGS: Clear to auscultation. There is no respiratory distress noted. HEART/CARDIOVASCULAR: Regular. There is no tachycardia. There is no gallop rub or murmur. ABDOMEN: Abdomen is soft, nontender. Patient has normal bowel sounds. There is no abdominal distention. SKIN: There is no rash. There is no edema. There is no diaphoresis. NEURO: The patient is awake, alert, and oriented. The patient is cooperative. The patient has normal speech MUSCULOSKELETAL: There is no evidence of acute injury. ED Course Vital Signs 10/29/19 01:48 Temperature 98.0 F Pulse Rate 93 H Respiratory 18 Rate Blood Pressure 131/92 O2 Sat by Pulse 94 Oximetry - Reevaluation(s) Reevaluation #1: 10/29/19 10:20 Patient refusing further lab draws. Strong warnings given. Patient leaving the hospital AGAINST MEDICAL ADVICE ED Medical Decision Making - Lab Data Result diagrams: 10/29/19 02:50 10/29/19 02:50 - EKG Data -: EKG Interpreted by Me EKG shows normal: sinus rhythm Rate: normal - EKG Data When compared to previous EKG there are: no significant change Interpretation: other (No ischemic changes seen) - Radiology Data Radiology results: report reviewed (Chest x-ray), image reviewed (Chest x-ray) interpreted by me: Chest x-ray-no focal infiltrates, no pneumothorax, no foreign body Findings [facility] [address] [place] [address] XRay Report Signed Patient: REBECCA ELIZABETH MR#: [id number] : 1960 Acct:[id number] Age/Sex: 58 / M ADM Date: 10/29/19 Loc: ED Attending Dr: Ordering Physician: ED MD JOS Date of Service: 10/29/19 Procedure(s): XR chest 1V ap Accession Number(s): [id number] cc: ED MD JOS Fluoro Time In Minutes: CHEST 1 VIEW INDICATION / CLINICAL INFORMATION: Chest Pain. COMPARISON: 10/26/2019 FINDINGS: SUPPORT DEVICES: None. HEART / MEDIASTINUM: No significant abnormality. LUNGS / PLEURA: No significant pulmonary or pleural abnormality. No pneumothorax. ADDITIONAL FINDINGS: No significant additional findings. IMPRESSION: 1. No acute findings. No interval change. Signer Name: Poly Lazo MD Signed: 10/29/2019 3:22 AM Workstation Name: [id number] Transcribed By: JR Dictated By: Poly Lazo MD Electronically Authenticated By: Poly Lazo MD Signed Date/Time: 10/29/19321 DD/ 9 TD/TT: - Differential Diagnosis Atypical chest pain, PE, pericarditis, ACS, GERD Critical care attestation.: If time is entered above; I have spent that time in minutes in the direct care of this critically ill patient, excluding procedure time. ED Disposition Clinical Impression: Chest pain, Alcoholism Disposition: DC-07 LEFT AGAINST MED ADVICE Is pt being admited?: No Does the pt Need Aspirin: No Condition: Undetermined Instructions: Chest Pain (ED) Referrals: PRIMARY CARE, [Primary Care Provider] - 3-5 Days Time of Disposition: 10:20 (Patient leaving AMA)
[2019-10-29 09:27] VITALS: BP 102/67
== END 2019-10-29 10:38 | disposition left against medical advice (07) ==
LOC: ED 01:43
DX: R07.89 Other chest pain (principal); F10.20 Alcohol dependence, uncomplicated; I25.2 Old myocardial infarction; Z86.73 Personal history of transient ischemic attack (TIA), and cerebral infarction without residual deficits; Z79.82 Long term (current) use of aspirin; Z79.899 Other long term (current) drug therapy; Z98.890 Other specified postprocedural states
CPT/HCPCS: 36415; 71045; 80048; 80320; 84484; 85007; 85025; 93005; G0480

== ENCOUNTER 2019-10-31 23:59 | Emergency (ER) | payer MEDICAID ==
[2019-11-01 00:10] VITALS: BP 127/86
[2019-11-01] MEDS ORDERED: ASPIRIN 325 MG TAB PO ONE (00:14)
--- NOTE | 2019-11-01 02:09 | XRay Report ---
CHEST 1 VIEW, 11/01/2019 12:49 AM CLINICAL INFORMATION/INDICATION: Chest pain COMPARISON: Chest radiograph, 10/29/2019 FINDINGS: SUPPORT DEVICES: None. HEART: The cardiac silhouette is normal in size. LUNGS/PLEURA: The lungs are clear of focal airspace disease or significant pleural effusion. ADDITIONAL FINDINGS: No additional acute findings. IMPRESSION: 1. No evidence of acute cardiopulmonary process. Signer Name: Ila Fernández MD Signed: 11/01/2019 2:05 AM Workstation Name: [id number]
[2019-11-01 03:26] LABS: Hematocrit 41.1 % (35.5-45.6); Hemoglobin 13.8 gm/dl (11.8-15.2); Mean Corpuscular HGB Conc 34 % (32-34); Mean Corpuscular Volume 86 fl (84-94); Red Blood Count 4.75 M/mm3 (3.65-5.03); Red Cell Distribution Width 15.8 % (13.2-15.2)
[2019-11-01 03:29] LABS: Platelet Count 46 K/mm3 (140-440)
[2019-11-01 03:44] LABS: BUN/Creatinine Ratio 9; Blood Urea Nitrogen 8 mg/dL (9-20); Calcium 9.5 mg/dL (8.4-10.2); Hemolysis Index 7
[2019-11-01 04:40] LABS: Anisocytosis 1+; Basophils % (Manual) 0 % (0.0-1.8); Platelet Estimate Consistent w Auto; Total Cells Counted 100
[2019-11-01] MEDS ORDERED: PANTOPRAZOLE 40 MG INJ IV ONE (06:59)
--- NOTE | 2019-11-01 07:17 | Emergency Department Report ---
ED Chest Pain HPI - General Chief Complaint: Chest Pain Stated Complaint: CP Time Seen by Provider: 11/01/19 06:23 Source: patient Mode of arrival: Ambulatory Limitations: No Limitations - History of Present Illness Initial Comments: This is a 58-year old homeless man who presents in a wheelchair. This is approximately his 20th visit to this facility in the last month. He presents recurrently for chest pain. He states he just wants to have his heart checked out. He was noted to have an alcohol level of 0.39 on his last visit. Over the last few visits he presented with pancytopenia and a dropping platelet level. Apparently he was given aspirin prior to my arrival, and not by my order. He states that he "just wants to make sure his heart is okay." I asked him if he was concerned about his liver related to his alcohol abuse. He stated that he takes care of his liver by "exercising". He is however mentally coherent and competent to make decisions. At the time of my encounter he is asking for breakfast. He is completely disheveled and covered with dirt. I asked him if he needed assistance in getting to a homeless residential. He stated he did not want to go to a homeless residential. He is not complaining of any active chest pain at the time of my evaluation. His chest pain is substernal and non- pleuritic nonradiating. Review of his hospitalization indicates that he has a normal left heart cath and a nonischemic cardiomyopathy: Patient's cardiac catheterization showed angiographically normal coronary arteries, and a moderate severity nonischemic cardiomyopathy. Recommend medical therapy with guideline directed optimal medical therapy for nonischemic cardiomyopathy. Original Note: Assessment and Plan - Patient Problems (1) Chest pain Current Visit: No Status: Acute Plan to address problem: Thallium stress test is abnormal with a mild reversible inferior wall defect. LHC: no significant coronary artery disease, EF 40-50%. - Related Data Previous Rx's Medication Instructions Recorded Last Taken Type predniSONE [Deltasone] 40 mg PO QDAY #10 tab 10/12/19 Unknown Rx Aspirin 325 mg PO QDAY #30 tablet 10/23/19 Unknown Rx Metoprolol [Lopressor TAB] 25 mg PO BID #60 tablet 10/23/19 Unknown Rx Folic Acid [Folvite] 1 mg PO QDAY #30 tablet 11/01/19 Unknown Rx Pantoprazole [Protonix TAB] 40 mg PO QDAY #30 tablet 11/01/19 Unknown Rx Thiamine [Vitamin B-1] 100 mg PO QDAY #30 tablet 11/01/19 Unknown Rx Allergies Allergy/AdvReac Type Severity Reaction Status Date / Time No Known Allergies Allergy Verified 09/25/18 20:10 Heart Score - HEART Score History: Slightly suspicious EKG: Non-specific Age: 45-65 Risk factors: 1-2 risk factors Troponin: < normal limit HEART Score: 3 - Critical Actions Critical Actions: 0-3 pts:0.9-1.7%risk of adverse cardiac event.Candidate for discharge ED Review of Systems ROS: Stated complaint: CP Other details as noted in HPI ED Past Medical Hx - Past Medical History Previous Medical History?: Yes Hx CVA: Yes (left) Hx Heart Attack/AMI: Yes Hx Congestive Heart Failure: No Hx Diabetes: No Hx Asthma: No Hx COPD: No Hx HIV: No Additional medical history: chronic pain in back, neck and L knee, ETOH abuse. herniated disc - Surgical History Past Surgical History?: Yes Additional Surgical History: Left Knee. skin graft to right hand - Social History Smoking Status: Never Smoker Substance Use Type: Alcohol - Medications Home Medications: Home Medications Medication Instructions Recorded Confirmed Last Taken Type predniSONE [Deltasone] 40 mg PO QDAY #10 tab 10/12/19 Unknown Rx Aspirin 325 mg PO QDAY #30 tablet 10/23/19 Unknown Rx Metoprolol [Lopressor TAB] 25 mg PO BID #60 tablet 10/23/19 Unknown Rx Folic Acid [Folvite] 1 mg PO QDAY #30 tablet 11/01/19 Unknown Rx Pantoprazole [Protonix TAB] 40 mg PO QDAY #30 tablet 11/01/19 Unknown Rx Thiamine [Vitamin B-1] 100 mg PO QDAY #30 tablet 11/01/19 Unknown Rx ED Physical Exam - General Limitations: No Limitations ED Course Vital Signs 11/01/19 00:05 Temperature 98.3 F Pulse Rate 115 H Respiratory 18 Rate Blood Pressure 127/86 O2 Sat by Pulse 98 Oximetry - Reevaluation(s) Reevaluation #1: Patient was fed. He was given a banana bag. He will be given a prescription for multivitamins and thiamine. He is counseled about his alcohol abuse. I discussed his case with subcontract manager. She stated that she did not have any services that she could offer. I believe the patient's pancytopenia is secondary to cirrhosis. Platelet count is low. He is advised against nonsteroidal use. He is also advised regarding trauma risk. He will be referred to a local primary care provider. Being appropriate for outpatient disposition, the patient was discharged. 11/01/19 10:37 MERT score - Mert Score Age > 65: (0) No Aspirin use within the Past 7 Days: (0) No 3 or more CAD Risk Factors: (1) Yes 2 or more Angina events in past 24 hrs: (1) Yes Known CAD with more than 50% Stenosis: (0) No Elevated Cardiac Markers: (0) No ST Deviation Greater than 0.5mm: (0) No MERT Score: 2 ED Medical Decision Making - Lab Data Result diagrams: 11/01/19 02:55 11/01/19 02:55 Laboratory Results - last 24 hr 11/01/19 11/01/19 11/01/19 02:55 02:55 06:20 WBC 3.1 L RBC 4.75 Hgb 13.8 Hct 41.1 MCV 86 MCH 29 MCHC 34 RDW 15.8 H Plt Count 46 L Lymph % (Auto) Engine Cleaner Baso % (Auto) Engine Cleaner Add Manual Diff Complete Total Counted 100 Seg Neutrophils % Engine Cleaner Seg Neuts % (Manual) 36.0 L Band Neutrophils % 0 Lymphocytes % (Manual) 55.0 H Reactive Lymphs % (Man) 1.0 Monocytes % (Manual) 7.0 Eosinophils % (Manual) 1.0 Basophils % (Manual) 0 Metamyelocytes % 0 Myelocytes % 0 Promyelocytes % 0 Blast Cells % 0 Nucleated RBC % Not Reportable Seg Neutrophils # Man 1.1 L Band Neutrophils # 0.0 Lymphocytes # (Manual) 1.7 Abs React Lymphs (Man) 0.0 Monocytes # (Manual) 0.2 Eosinophils # (Manual) 0.0 Basophils # (Manual) 0.0 Metamyelocytes # 0.0 Myelocytes # 0.0 Promyelocytes # 0.0 Blast Cells # 0.0 WBC Morphology Not Reportable Hypersegmented Neuts Not Reportable Hyposegmented Neuts Not Reportable Hypogranular Neuts Not Reportable Smudge Cells Not Reportable Toxic Granulation Not Reportable Toxic Vacuolation Not Reportable Dohle Bodies Not Reportable Pelger-Huet Anomaly Not Reportable Katie Rods Not Reportable Platelet Estimate Consistent w auto Clumped Platelets Not Reportable Plt Clumps, EDTA Not Reportable Large Platelets Not Reportable Giant Platelets Not Reportable Platelet Satelliting Not Reportable Plt Morphology Comment Not Reportable RBC Morphology Not Reportable Dimorphic RBCs Not Reportable Polychromasia Not Reportable Hypochromasia Not Reportable Poikilocytosis Not Reportable Anisocytosis 1+ Microcytosis Not Reportable Macrocytosis Not Reportable Spherocytes Not Reportable Pappenheimer Bodies Not Reportable Sickle Cells Not Reportable Target Cells Not Reportable Tear Drop Cells Not Reportable Ovalocytes Not Reportable Helmet Cells Not Reportable [place] Bodies Not Reportable [place] Rings Not Reportable [place] Cells Not Reportable Bite Cells Not Reportable Crenated Cell Not Reportable Elliptocytes Not Reportable Acanthocytes (Spur) Not Reportable Rouleaux Not Reportable Hemoglobin C Crystals Not Reportable Schistocytes Not Reportable Malaria parasites Not Reportable Connor Bodies Not Reportable Hem Pathologist Commnt No Sodium 135 L Potassium 4.2 D Chloride 92.9 L Carbon Dioxide 23 Anion Gap 23 BUN 8 L Creatinine 0.9 Estimated GFR > 60 BUN/Creatinine Ratio 9 Glucose 119 H Calcium 9.5 Troponin T < 0.010 < 0.010 Critical care attestation.: If time is entered above; I have spent that time in minutes in the direct care of this critically ill patient, excluding procedure time. ED Disposition Clinical Impression: Thrombocytopenia Cirrhosis Qualifiers: Hepatic cirrhosis type: alcoholic cirrhosis Ascites presence: without ascites Qualified Code(s): K70.30 - Alcoholic cirrhosis of liver without ascites Neutropenia Qualifiers: Neutropenia type: unspecified Qualified Code(s): D70.9 - Neutropenia, unspecified Disposition: DC-01 TO HOME OR SELFCARE Is pt being admited?: No Does the pt Need Aspirin: No Condition: Stable Instructions: Cirrhosis (ED), Neutropenia (ED), Thrombocytopenia (ED) Additional Instructions: I am going to prescribe multivitamins and thiamine. You have the adverse effects of alcohol on your bone marrow and your liver. Alcohol abuse will make this worse. Avoid injury. Do not take aspirin or similar such medication. Return as needed to the emergency department any signs of bleeding. Follow-up at the [facility]. Prescriptions: Folic Acid [Folvite] 1 mg PO QDAY #30 tablet Pantoprazole [Protonix TAB] 40 mg PO QDAY #30 tablet Thiamine [Vitamin B-1] 100 mg PO QDAY #30 tablet Referrals: PRIMARY CARE, [Primary Care Provider] - 3-5 Days [facility] [Provider Group] - 24 Hours Time of Disposition: 10:41
[2019-11-01] MEDS ORDERED: THIAMINE 100 MG, FOLIC ACID 1 MG, MULTIPLE VITAMIN INJ, ADULT 10 ML in SODIUM CHLORIDE ... IV ONE (07:30)
== END 2019-11-01 11:37 | disposition home or self-care (01) ==
LOC: ED 23:59
DX: D69.6 Thrombocytopenia, unspecified (principal); D70.8 Other neutropenia; K74.69 Other cirrhosis of liver; I25.2 Old myocardial infarction; Z86.73 Personal history of transient ischemic attack (TIA), and cerebral infarction without residual deficits; Z79.899 Other long term (current) drug therapy
CPT/HCPCS: 36415; 71045; 80048; 84484; 85007; 85025; 93005; 96365; 96366; 96375; 99284; C9113; J3411; J7030

== ENCOUNTER 2019-11-04 00:51 | Emergency (ER) | payer MEDICAID | END 2019-11-04 08:01 | disposition left against medical advice (07) | LOC: ED 00:51 | DX: R07.89 Other chest pain (principal); Z53.21 Procedure and treatment not carried out due to patient leaving prior to being seen by health care provider | CPT/HCPCS: 93005 ==

== ENCOUNTER 2019-11-10 21:35 | Emergency (ER) | payer MEDICAID ==
[2019-11-11 05:04] LABS: Hemoglobin 13.6 gm/dl (11.8-15.2); Mean Corpuscular HGB Conc 34 % (32-34); Mean Corpuscular Volume 89 fl (84-94); Platelet Count 142 K/mm3 (140-440); Red Blood Count 4.52 M/mm3 (3.65-5.03); Red Cell Distribution Width 16.3 % (13.2-15.2)
[2019-11-11 06:53] LABS: Basophils % (Manual) 0 % (0.0-1.8); Platelet Estimate Consistent w Auto; Total Cells Counted 100
--- NOTE | 2019-11-11 08:06 | Emergency Department Report ---
ED Alcohol HPI - General Chief Complaint: Chest Pain Stated Complaint: CHEST PAIN Time Seen by Provider: 11/11/19 07:51 Source: patient Mode of arrival: Ambulatory Limitations: No Limitations - History of Present Illness Initial Comments: CC: "Hey Baby Girl, I just came to get checked out." HPI: Mr. Lemus is a 58 yo male with hx of alcohol dependence, GERD, DJD, cirrhosis, sciatica who presents with recurrent chest pain. He informed the triage nurse that he had chest pain and shortness of breath. He reported nausea and vomiting. On my exam, patient is symptom free. He is pleasant. According to EMR, cardiac cath performed one month ago 10/11/2019: EF 40-50%, mild global left ventricular dysfunction, mild coronary lesions MD Complaint: alcohol dependence Last Drink: unknown Chronic Alcohol Use: Yes Previous Visits for Alcohol Intoxication?: Yes Recent Trauma: No Associated Symptoms: nausea, vomiting, other (chest pain shortness of breath) Treatments Prior to Arrival: none - Related Data Previous Rx's Medication Instructions Recorded Last Taken Type predniSONE [Deltasone] 40 mg PO QDAY #10 tab 10/12/19 Unknown Rx Aspirin 325 mg PO QDAY #30 tablet 10/23/19 Unknown Rx Metoprolol [Lopressor TAB] 25 mg PO BID #60 tablet 10/23/19 Unknown Rx Folic Acid [Folvite] 1 mg PO QDAY #30 tablet 11/01/19 Unknown Rx Pantoprazole [Protonix TAB] 40 mg PO QDAY #30 tablet 11/01/19 Unknown Rx Thiamine [Vitamin B-1] 100 mg PO QDAY #30 tablet 11/01/19 Unknown Rx Allergies Allergy/AdvReac Type Severity Reaction Status Date / Time No Known Allergies Allergy Verified 09/25/18 20:10 ED Review of Systems ROS: Stated complaint: CHEST PAIN Other details as noted in HPI Comment: All other systems reviewed and negative Constitutional: denies: fever, malaise Respiratory: shortness of breath Cardiovascular: denies: chest pain Gastrointestinal: nausea, vomiting ED Past Medical Hx - Past Medical History Previous Medical History?: Yes Hx CVA: Yes (left) Hx Heart Attack/AMI: Yes Hx Congestive Heart Failure: No Hx Diabetes: No Hx Asthma: No Hx COPD: No Hx HIV: No Additional medical history: chronic pain in back, neck and L knee, ETOH abuse. herniated disc - Surgical History Past Surgical History?: Yes Additional Surgical History: Left Knee. skin graft to right hand - Social History Smoking Status: Never Smoker Substance Use Type: Alcohol - Medications Home Medications: Home Medications Medication Instructions Recorded Confirmed Last Taken Type predniSONE [Deltasone] 40 mg PO QDAY #10 tab 10/12/19 Unknown Rx Aspirin 325 mg PO QDAY #30 tablet 10/23/19 Unknown Rx Metoprolol [Lopressor TAB] 25 mg PO BID #60 tablet 10/23/19 Unknown Rx Folic Acid [Folvite] 1 mg PO QDAY #30 tablet 11/01/19 Unknown Rx Pantoprazole [Protonix TAB] 40 mg PO QDAY #30 tablet 11/01/19 Unknown Rx Thiamine [Vitamin B-1] 100 mg PO QDAY #30 tablet 11/01/19 Unknown Rx ED Physical Exam - General Limitations: No Limitations General appearance: alert, in no apparent distress - Head Head exam: Present: atraumatic, normocephalic - Eye Eye exam: Present: conjunctival injection - ENT ENT exam: Present: mucous membranes moist - Neck Neck exam: Present: normal inspection, full ROM - Respiratory Respiratory exam: Present: normal lung sounds bilaterally. Absent: respiratory distress, wheezes, rales, rhonchi - Cardiovascular Cardiovascular Exam: Present: regular rate, normal rhythm, normal heart sounds. Absent: systolic murmur, diastolic murmur, rubs, gallop - GI/Abdominal GI/Abdominal exam: Present: soft, normal bowel sounds. Absent: distended, tenderness, guarding, rebound - Rectal Rectal exam: Present: deferred - Extremities Exam Extremities exam: Present: normal inspection - Back Exam Back exam: Present: normal inspection - Neurological Exam Neurological exam: Present: alert, oriented X3 - Psychiatric Psychiatric exam: Present: normal affect, normal mood - Skin Skin exam: Present: warm, dry, intact, normal color. Absent: rash ED Course Vital Signs 11/10/19 11/11/19 22:08 07:51 Temperature 98.4 F Pulse Rate 108 H 76 Respiratory 18 18 Rate Blood Pressure 156/78 Blood Pressure 136/86 [Left] O2 Sat by Pulse 96 97 Oximetry ED Medical Decision Making - Lab Data Result diagrams: 11/11/19 04:42 Laboratory Results - last 24 hr 11/11/19 11/11/19 04:42 04:42 WBC 3.8 L RBC 4.52 Hgb 13.6 Hct 40.0 MCV 89 MCH 30 MCHC 34 RDW 16.3 H Plt Count 142 Lymph % (Auto) Assistant Plant Controller Add Manual Diff Complete Total Counted 100 Seg Neutrophils % Assistant Plant Controller Seg Neuts % (Manual) 19.0 L Band Neutrophils % 0 Lymphocytes % (Manual) 60.0 H Reactive Lymphs % (Man) 5.0 Monocytes % (Manual) 13.0 H Eosinophils % (Manual) 3.0 Basophils % (Manual) 0 Metamyelocytes % 0 Myelocytes % 0 Promyelocytes % 0 Blast Cells % 0 Nucleated RBC % Not Reportable Seg Neutrophils # Man 0.7 L Band Neutrophils # 0.0 Lymphocytes # (Manual) 2.3 Abs React Lymphs (Man) 0.2 Monocytes # (Manual) 0.5 Eosinophils # (Manual) 0.1 Basophils # (Manual) 0.0 Metamyelocytes # 0.0 Myelocytes # 0.0 Promyelocytes # 0.0 Blast Cells # 0.0 WBC Morphology Not Reportable Hypersegmented Neuts Not Reportable Hyposegmented Neuts Not Reportable Hypogranular Neuts Not Reportable Smudge Cells Not Reportable Toxic Granulation Not Reportable Toxic Vacuolation Not Reportable Dohle Bodies Not Reportable Pelger-Huet Anomaly Not Reportable Katie Rods Not Reportable Platelet Estimate Consistent w auto Clumped Platelets Not Reportable Plt Clumps, EDTA Not Reportable Large Platelets Not Reportable Giant Platelets Not Reportable Platelet Satelliting Not Reportable Plt Morphology Comment Not Reportable RBC Morphology Not Reportable Dimorphic RBCs Not Reportable Polychromasia Not Reportable Hypochromasia Not Reportable Poikilocytosis Not Reportable Anisocytosis Not Reportable Microcytosis Not Reportable Macrocytosis Not Reportable Spherocytes Not Reportable Pappenheimer Bodies Not Reportable Sickle Cells Not Reportable Target Cells Not Reportable Tear Drop Cells Not Reportable Ovalocytes Not Reportable Helmet Cells Not Reportable [place] Bodies Not Reportable [place] Rings Not Reportable [place] Cells Not Reportable Bite Cells Not Reportable Crenated Cell Not Reportable Elliptocytes Not Reportable Acanthocytes (Spur) Not Reportable Rouleaux Not Reportable Hemoglobin C Crystals Not Reportable Schistocytes Not Reportable Malaria parasites Not Reportable Connor Bodies Not Reportable Hem Pathologist Commnt No Plasma/Serum Alcohol 0.33 H - Medical Decision Making Mr. Lemus has a 58-year-old male who presents the emergency department on several occasions for recurrent chest pain and alcohol intoxication. Patient is currently ambulatory without difficulty. Blood draw at 0445 patient's blood alcohol level elevated above 300. Patient was given a meal. He is discharged to self care. Patient denies chest pain shortness of breath vomiting to me. I do not suspect acute emergent condition such as acute coronary syndrome or pulmonary embolism. On reexamination, patient heart rate is 83 bpm. Normotensive. He is appropriate for discharge. Critical care attestation.: If time is entered above; I have spent that time in minutes in the direct care of this critically ill patient, excluding procedure time. ED Disposition Clinical Impression: Alcohol intoxication, Chest pain Disposition: DC-01 TO HOME OR SELFCARE Is pt being admited?: No Does the pt Need Aspirin: No Condition: Stable Referrals: MATHEW REAVES MD [Staff Physician] - 3-5 Days
[2019-11-11 09:20] VITALS: BP 132/74
== END 2019-11-11 08:30 | disposition home or self-care (01) ==
LOC: ED 21:35
DX: R07.89 Other chest pain (principal); R11.2 Nausea with vomiting, unspecified; G89.29 Other chronic pain; F10.239 Alcohol dependence with withdrawal, unspecified; I25.2 Old myocardial infarction; Z86.73 Personal history of transient ischemic attack (TIA), and cerebral infarction without residual deficits; Z79.899 Other long term (current) drug therapy
CPT/HCPCS: 36415; 80320; 85007; 85025; 93005; 99283; G0480

== ENCOUNTER 2019-12-07 23:43 | Emergency (ER) | payer MEDICAID ==
[2019-12-08] MEDS ORDERED: ASPIRIN 325 MG TAB PO ONE (00:53)
--- NOTE | 2019-12-08 01:59 | XRay Report ---
CHEST 1 VIEW 12/08/2019 1:43 AM INDICATION / CLINICAL INFORMATION: Chest Pain. COMPARISON: Chest x-ray on 11/05/2019 FINDINGS: SUPPORT DEVICES: None. HEART / MEDIASTINUM: No significant abnormality. LUNGS / PLEURA: No significant pulmonary or pleural abnormality. No pneumothorax. ADDITIONAL FINDINGS: No significant additional findings. IMPRESSION: 1. No acute findings. Signer Name: Jesus Weeks MD Signed: 12/08/2019 1:55 AM Workstation Name: [id number]
[2019-12-08 02:08] LABS: Hematocrit 35.4 % (35.5-45.6); Hemoglobin 11.9 gm/dl (11.8-15.2); Mean Corpuscular HGB Conc 34 % (32-34); Mean Corpuscular Volume 92 fl (84-94); Red Blood Count 3.85 M/mm3 (3.65-5.03); Red Cell Distribution Width 15.4 % (13.2-15.2)
[2019-12-08 02:14] LABS: Basophils % (Auto) 0.6 % (0.0-1.8); Eosinophils % (Auto) 0.5 % (0.0-4.3); Lymphocytes # (Auto) 1.9 K/mm3 (1.2-5.4); Lymphocytes % (Auto) 24.2 % (13.4-35.0); Monocytes # (Auto) 0.8 K/mm3 (0.0-0.8); Monocytes % (Auto) 9.7 % (0.0-7.3); Platelet Count 156 K/mm3 (140-440)
[2019-12-08 02:23] LABS: Blood Urea Nitrogen 6 mg/dL (9-20); Calcium 9.3 mg/dL (8.4-10.2); Hemolysis Index 4
[2019-12-08 02:29] LABS: BUN/Creatinine Ratio 12
[2019-12-08 07:13] VITALS: BP 128/72
== END 2019-12-08 08:19 | disposition left against medical advice (07) ==
LOC: ED 23:43
DX: R07.89 Other chest pain (principal); Z53.21 Procedure and treatment not carried out due to patient leaving prior to being seen by health care provider
CPT/HCPCS: 36415; 71045; 80048; 84484; 85025; 93005

== ENCOUNTER 2019-12-10 | Emergency (ER) | payer MEDICAID ==
[2019-12-10] MEDS ORDERED: ASPIRIN 325 MG TAB PO ONE (00:11)
[2019-12-10 01:07] LABS: Basophils # (Auto) 0.1 K/mm3 (0.0-0.1); Basophils % (Auto) 1.5 % (0.0-1.8); Eosinophils # (Auto) 0.1 K/mm3 (0.0-0.4); Eosinophils % (Auto) 1.4 % (0.0-4.3); Hemoglobin 11.2 gm/dl (11.8-15.2); Lymphocytes # (Auto) 2.1 K/mm3 (1.2-5.4); Lymphocytes % (Auto) 47.2 % (13.4-35.0); Mean Corpuscular HGB Conc 34 % (32-34); Mean Corpuscular Volume 91 fl (84-94); Monocytes # (Auto) 0.5 K/mm3 (0.0-0.8); Platelet Count 492 K/mm3 (140-440); Red Blood Count 3.63 M/mm3 (3.65-5.03); Red Cell Distribution Width 15.2 % (13.2-15.2)
[2019-12-10 01:14] LABS: Blood Urea Nitrogen 5 mg/dL (9-20); Hemolysis Index 9
[2019-12-10 01:15] LABS: BUN/Creatinine Ratio 8
--- NOTE | 2019-12-10 01:29 | XRay Report ---
CHEST 1 VIEW 12/10/2019 12:21 AM INDICATION / CLINICAL INFORMATION: Chest pain. COMPARISON: 12/08/2019 FINDINGS: SUPPORT DEVICES: None. HEART / MEDIASTINUM: No significant abnormality. LUNGS / PLEURA: No significant pulmonary or pleural abnormality. No pneumothorax. ADDITIONAL FINDINGS: No significant additional findings. IMPRESSION: 1. No acute findings. Signer Name: Jesus Weeks MD Signed: 12/10/2019 1:24 AM Workstation Name: [id number]
[2019-12-10] MEDS ORDERED: SUCRALFATE 1 GM/10 ML ORAL LIQD PO ONE (01:38)
--- NOTE | 2019-12-10 01:38 | Emergency Department Report ---
ED General Adult HPI - General Chief complaint: Chest Pain Stated complaint: CHEST PAIN Time Seen by Provider: 12/10/19 00:52 Source: patient Mode of arrival: Ambulatory Limitations: No Limitations - History of Present Illness Initial comments: The patient presents to the emergency department the chief complaint chest pain that started yesterday. Patient describes the chest pain as a dull sensation throughout his whole chest and upon my history and physical he denies any shortness of breath. Patient also denies any abdominal pain, headache, fever. Upon further questioning the patient asked me if I can give him a candy bar and also asked if he can stay in the hospital for the night due to the weather. -: days(s) (2) Location: chest Radiation: non-radiation Quality: dull Consistency: constant Improves with: none Worsens with: none Associated Symptoms: denies other symptoms Treatments Prior to Arrival: none - Related Data Previous Rx's Medication Instructions Recorded Last Taken Type predniSONE [Deltasone] 40 mg PO QDAY #10 tab 10/12/19 Unknown Rx Aspirin 325 mg PO QDAY #30 tablet 10/23/19 Unknown Rx Metoprolol [Lopressor TAB] 25 mg PO BID #60 tablet 10/23/19 Unknown Rx Folic Acid [Folvite] 1 mg PO QDAY #30 tablet 11/01/19 Unknown Rx Pantoprazole [Protonix TAB] 40 mg PO QDAY #30 tablet 11/01/19 Unknown Rx Thiamine [Vitamin B-1] 100 mg PO QDAY #30 tablet 11/01/19 Unknown Rx Allergies Allergy/AdvReac Type Severity Reaction Status Date / Time No Known Allergies Allergy Verified 09/25/18 20:10 ED Review of Systems ROS: Stated complaint: CHEST PAIN Other details as noted in HPI Comment: All other systems reviewed and negative Constitutional: denies: chills, fever Eyes: denies: eye pain, eye discharge, vision change ENT: denies: ear pain, throat pain Respiratory: denies: cough, shortness of breath, wheezing Cardiovascular: chest pain. denies: palpitations Endocrine: no symptoms reported Gastrointestinal: denies: abdominal pain, nausea, diarrhea Genitourinary: denies: urgency, dysuria Musculoskeletal: denies: back pain, joint swelling, arthralgia Skin: denies: rash, lesions Neurological: denies: headache, weakness, paresthesias Psychiatric: denies: anxiety, depression Hematological/Lymphatic: denies: easy bleeding, easy bruising ED Past Medical Hx - Past Medical History Previous Medical History?: Yes Hx CVA: Yes (left) Hx Heart Attack/AMI: Yes Hx Congestive Heart Failure: No Hx Diabetes: No Hx Asthma: No Hx COPD: No Hx HIV: No Additional medical history: chronic pain in back, neck and L knee, ETOH abuse. herniated disc - Surgical History Past Surgical History?: Yes Additional Surgical History: Left Knee. skin graft to right hand - Social History Smoking Status: Never Smoker Substance Use Type: Alcohol - Medications Home Medications: Home Medications Medication Instructions Recorded Confirmed Last Taken Type predniSONE [Deltasone] 40 mg PO QDAY #10 tab 10/12/19 Unknown Rx Aspirin 325 mg PO QDAY #30 tablet 10/23/19 Unknown Rx Metoprolol [Lopressor TAB] 25 mg PO BID #60 tablet 10/23/19 Unknown Rx Folic Acid [Folvite] 1 mg PO QDAY #30 tablet 11/01/19 Unknown Rx Pantoprazole [Protonix TAB] 40 mg PO QDAY #30 tablet 11/01/19 Unknown Rx Thiamine [Vitamin B-1] 100 mg PO QDAY #30 tablet 11/01/19 Unknown Rx ED Physical Exam - General Limitations: No Limitations General appearance: alert, in no apparent distress - Head Head exam: Present: atraumatic, normocephalic - Eye Eye exam: Present: normal appearance, PERRL, EOMI - ENT ENT exam: Present: mucous membranes moist - Neck Neck exam: Present: normal inspection - Respiratory Respiratory exam: Present: normal lung sounds bilaterally. Absent: respiratory distress - Cardiovascular Cardiovascular Exam: Present: regular rate, normal rhythm. Absent: systolic murmur, diastolic murmur, rubs, gallop - GI/Abdominal GI/Abdominal exam: Present: soft, normal bowel sounds. Absent: distended, tenderness - Rectal Rectal exam: Present: deferred - Extremities Exam Extremities exam: Present: normal inspection - Back Exam Back exam: Present: normal inspection - Neurological Exam Neurological exam: Present: alert, oriented X3, CN II-XII intact. Absent: motor sensory deficit - Psychiatric Psychiatric exam: Present: normal affect, normal mood - Skin Skin exam: Present: warm, dry, intact, normal color. Absent: rash ED Medical Decision Making - Lab Data Result diagrams: 12/10/19 00:25 12/10/19 00:25 Lab Results 12/10/19 12/10/19 Range/Units 00:25 00:25 WBC 4.4 L (4.5-11.0) K/mm3 RBC 3.63 L (3.65-5.03) M/mm3 Hgb 11.2 L (11.8-15.2) gm/dl Hct 33.0 L (35.5-45.6) % MCV 91 (84-94) fl MCH 31 (28-32) pg MCHC 34 (32-34) % RDW 15.2 (13.2-15.2) % Plt Count 492 H D (140-440) K/mm3 Lymph % (Auto) 47.2 H (13.4-35.0) % [place] % (Auto) 11.0 H (0.0-7.3) % Eos % (Auto) 1.4 (0.0-4.3) % Baso % (Auto) 1.5 (0.0-1.8) % Lymph # (Auto) 2.1 (1.2-5.4) K/mm3 [place] # (Auto) 0.5 (0.0-0.8) K/mm3 Eos # (Auto) 0.1 (0.0-0.4) K/mm3 Baso # (Auto) 0.1 (0.0-0.1) K/mm3 Seg Neutrophils % 38.9 L (40.0-70.0) % Seg Neutrophils # 1.7 L (1.8-7.7) K/mm3 Sodium 138 (137-145) mmol/L Potassium 4.3 (3.6-5.0) mmol/L Chloride 99.5 (98-107) mmol/L Carbon Dioxide 22 (22-30) mmol/L Anion Gap 21 mmol/L BUN 5 L (9-20) mg/dL Creatinine 0.6 L (0.8-1.3) mg/dL Estimated GFR > 60 ml/min BUN/Creatinine Ratio 8 % Glucose 106 H (75-100) mg/dL Calcium 9.0 (8.4-10.2) mg/dL Troponin T < 0.010 (0.00-0.029) ng/mL - EKG Data -: EKG Interpreted by In EKG shows normal: sinus rhythm Rate: tachycardia - Radiology Data Radiology results: report reviewed - Medical Decision Making discussed results with patient Critical care attestation.: If time is entered above; I have spent that time in minutes in the direct care of this critically ill patient, excluding procedure time. ED Disposition Clinical Impression: Nonspecific chest pain Disposition: TO HOME OR SELFCARE Is pt being admited?: No Does the pt Need Aspirin: No Condition: Stable Instructions: Chest Pain (ED) Additional Instructions: return if worse Referrals: PRIMARY CARE, [Primary Care Provider] - 3-5 Days MEÑO SANDOVAL MD [Staff Physician] - 3-5 Days MATHEW REAVES MD [Staff Physician] - 3-5 Days CHANTELLE JACKSON MD [Staff Physician] - 3-5 Days Time of Disposition: 01:43
[2019-12-10] MEDS ORDERED: ASPIRIN 325 MG TAB ONE (03:02)
[2019-12-10 03:03] VITALS: BP 113/75
== END 2019-12-10 03:30 | disposition home or self-care (01) ==
LOC: ED
DX: R07.89 Other chest pain (principal); I25.2 Old myocardial infarction; Z86.73 Personal history of transient ischemic attack (TIA), and cerebral infarction without residual deficits; Z98.890 Other specified postprocedural states; Z79.899 Other long term (current) drug therapy
CPT/HCPCS: 36415; 71045; 80048; 84484; 85025; 93005

== ENCOUNTER 2020-01-02 19:18 | Emergency (ER) | payer MEDICAID ==
[2020-01-02 20:53] LABS: Basophils # (Auto) 0.1 K/mm3 (0.0-0.1); Basophils % (Auto) 1.3 % (0.0-1.8); Eosinophils % (Auto) 0.8 % (0.0-4.3); Hematocrit 40.2 % (35.5-45.6); Hemoglobin 13.7 gm/dl (11.8-15.2); Lymphocytes # (Auto) 2.3 K/mm3 (1.2-5.4); Lymphocytes % (Auto) 53.9 % (13.4-35.0); Mean Corpuscular HGB Conc 34 % (32-34); Mean Corpuscular Volume 90 fl (84-94); Monocytes # (Auto) 0.4 K/mm3 (0.0-0.8); Monocytes % (Auto) 8.7 % (0.0-7.3); Platelet Count 161 K/mm3 (140-440); Red Blood Count 4.46 M/mm3 (3.65-5.03)
[2020-01-02 21:08] LABS: BUN/Creatinine Ratio 11; Blood Urea Nitrogen 8 mg/dL (9-20); Calcium 9.1 mg/dL (8.4-10.2); Hemolysis Index 11
--- NOTE | 2020-01-02 21:40 | XRay Report ---
CHEST 1 VIEW INDICATION: Chest Pain COMPARISON: 12/10/2019 FINDINGS: Support devices: None Heart: Normal and unchanged Lungs/Pleura: No acute pulmonary or pleural findings. IMPRESSION: 1. No acute disease and no interval change. Signer Name: Gen Schafer MD Signed: 01/02/2020 9:36 PM Workstation Name: [id number]
[2020-01-03] VITALS: BP 126/74
--- NOTE | 2020-01-03 03:17 | Emergency Department Report ---
ED Chest Pain HPI - General Chief Complaint: Chest Pain Stated Complaint: CHEST PAIN Time Seen by Provider: 01/02/20 23:47 Source: patient Mode of arrival: Ambulatory Limitations: No Limitations - History of Present Illness Initial Comments: 59-year-old male with history of alcohol abuse presents with complaint of chest pain. Patient has had multiple ED visits for chest pain. Patient underwent cardiac cath 2 months ago. [employer] Educator note states, "Patient's cardiac catheterization showed angiographically normal coronary arteries, and a moderate severity nonischemic cardiomyopathy. Recommend medical therapy with guideline directed optimal medical therapy for nonischemic cardiomyopathy." Patient currently requesting a sandwich. Denies any alcohol use tonight, although patient smells of alcohol. MD Complaint: chest pain -: This evening Onset: during rest Pain Location: left chest Pain Radiation: LUE Severity: moderate Quality: aching Consistency: constant Improves With: nothing Worsens With: palpation, movement re: dyspnea Other Symptoms: denies: cough, fever - Related Data Previous Rx's Medication Instructions Recorded Last Taken Type predniSONE [Deltasone] 40 mg PO QDAY #10 tab 10/12/19 Unknown Rx Aspirin 325 mg PO QDAY #30 tablet 10/23/19 Unknown Rx Metoprolol [Lopressor TAB] 25 mg PO BID #60 tablet 10/23/19 Unknown Rx Folic Acid [Folvite] 1 mg PO QDAY #30 tablet 11/01/19 Unknown Rx Pantoprazole [Protonix TAB] 40 mg PO QDAY #30 tablet 11/01/19 Unknown Rx Thiamine [Vitamin B-1] 100 mg PO QDAY #30 tablet 11/01/19 Unknown Rx Allergies Allergy/AdvReac Type Severity Reaction Status Date / Time No Known Allergies Allergy Verified 09/25/18 20:10 Heart Score - HEART Score History: Slightly suspicious EKG: Non-specific Age: 45-65 Risk factors: 1-2 risk factors Troponin: < normal limit HEART Score: 3 ED Review of Systems ROS: Stated complaint: CHEST PAIN Other details as noted in HPI Comment: All other systems reviewed and negative Constitutional: denies: fever Respiratory: shortness of breath. denies: cough Cardiovascular: chest pain ED Past Medical Hx - Past Medical History Previous Medical History?: Yes Hx CVA: Yes (left) Hx Heart Attack/AMI: Yes Hx Congestive Heart Failure: No Hx Diabetes: No Hx Asthma: No Hx COPD: No Hx HIV: No Additional medical history: chronic pain in back, neck and L knee, ETOH abuse. herniated disc - Surgical History Past Surgical History?: Yes Additional Surgical History: Left Knee. skin graft to right hand - Social History Smoking Status: Never Smoker - Medications Home Medications: Home Medications Medication Instructions Recorded Confirmed Last Taken Type predniSONE [Deltasone] 40 mg PO QDAY #10 tab 10/12/19 Unknown Rx Aspirin 325 mg PO QDAY #30 tablet 10/23/19 Unknown Rx Metoprolol [Lopressor TAB] 25 mg PO BID #60 tablet 10/23/19 Unknown Rx Folic Acid [Folvite] 1 mg PO QDAY #30 tablet 11/01/19 Unknown Rx Pantoprazole [Protonix TAB] 40 mg PO QDAY #30 tablet 11/01/19 Unknown Rx Thiamine [Vitamin B-1] 100 mg PO QDAY #30 tablet 11/01/19 Unknown Rx ED Physical Exam - General Limitations: No Limitations General appearance: alert, in no apparent distress - Head Head exam: Present: atraumatic, normocephalic - Eye Eye exam: Present: normal appearance, EOMI - ENT ENT exam: Present: mucous membranes moist - Neck Neck exam: Present: normal inspection - Respiratory Respiratory exam: Present: normal lung sounds bilaterally. Absent: respiratory distress - Cardiovascular Cardiovascular Exam: Present: regular rate, normal rhythm - GI/Abdominal GI/Abdominal exam: Present: soft. Absent: distended, tenderness - Extremities Exam Extremities exam: Present: normal inspection - Neurological Exam Neurological exam: Present: alert, oriented X3 - Psychiatric Psychiatric exam: Present: normal affect, normal mood - Skin Skin exam: Present: warm, dry, intact, normal color ED Course Vital Signs 01/02/20 01/02/20 20:31 23:58 Temperature 97.8 F Pulse Rate 96 H 103 H Respiratory 18 16 Rate Blood Pressure 117/82 Blood Pressure 126/74 [Left] O2 Sat by Pulse 97 96 Oximetry MERT score - Mert Score Age > 65: (0) No Aspirin use within the Past 7 Days: (0) No 3 or more CAD Risk Factors: (1) Yes 2 or more Angina events in past 24 hrs: (1) Yes Known CAD with more than 50% Stenosis: (0) No Elevated Cardiac Markers: (0) No ST Deviation Greater than 0.5mm: (0) No MERT Score: 2 ED Medical Decision Making - Lab Data Result diagrams: 01/02/20 20:33 01/02/20 20:33 - EKG Data -: EKG Interpreted by Me EKG shows normal: sinus rhythm, intervals, QRS complexes, ST-T waves Rate: normal - EKG Data Interpretation: no acute changes - Radiology Data Radiology results: report reviewed, image reviewed Critical care attestation.: If time is entered above; I have spent that time in minutes in the direct care of this critically ill patient, excluding procedure time. ED Disposition Clinical Impression: Chest pain, Alcohol intoxication Disposition: DC-01 TO HOME OR SELFCARE Is pt being admited?: No Condition: Stable Instructions: Chest Pain (ED) Referrals: PRIMARY CARE, [Primary Care Provider] - 3-5 Days
== END 2020-01-03 07:46 | disposition home or self-care (01) ==
LOC: ED 19:18
DX: R07.89 Other chest pain (principal); F10.920 Alcohol use, unspecified with intoxication, uncomplicated; I25.2 Old myocardial infarction; G89.29 Other chronic pain; Z79.899 Other long term (current) drug therapy; Z86.73 Personal history of transient ischemic attack (TIA), and cerebral infarction without residual deficits
CPT/HCPCS: 36415; 71045; 80048; 80320; 84484; 85025; 93005; G0480

== ENCOUNTER 2020-01-05 19:26 | Emergency (ER) | payer MEDICAID ==
[2020-01-05] MEDS ORDERED: ASPIRIN 325 MG TAB PO ONE (20:11)
--- NOTE | 2020-01-05 20:49 | XRay Report ---
CHEST 1 VIEW INDICATION: Chest Pain. COMPARISON: 01/02/2020 FINDINGS: Support devices: None. Heart: Normal. Lungs/Pleura: There are low lung volumes. This likely accounts for bibasilar opacities. No pleural ab normality. IMPRESSION: 1. Low lung volumes with presumed atelectatic changes in the bases. Signer Name: Yogi Rouse MD Signed: 01/05/2020 8:44 PM Workstation Name: [id number]
[2020-01-05 21:38] LABS: Hemoglobin 13.1 gm/dl (11.8-15.2); Mean Corpuscular HGB Conc 34 % (32-34); Mean Corpuscular Volume 90 fl (84-94); Platelet Count 147 K/mm3 (140-440); Red Blood Count 4.35 M/mm3 (3.65-5.03); Red Cell Distribution Width 14.7 % (13.2-15.2)
[2020-01-05 21:42] LABS: Blood Urea Nitrogen 5 mg/dL (9-20); Calcium 8.9 mg/dL (8.4-10.2); Hemolysis Index 5
[2020-01-05 21:43] LABS: BUN/Creatinine Ratio 8
[2020-01-05 22:22] LABS: Basophils % (Manual) 0 % (0.0-1.8); Total Cells Counted 100
[2020-01-05 22:23] LABS: Platelet Estimate Consistent w Auto; Target Cells Few
--- NOTE | 2020-01-06 07:01 | Emergency Department Report ---
ED Chest Pain HPI - General Chief Complaint: Chest Pain Stated Complaint: CHEST PAIN Time Seen by Provider: 01/06/20 06:10 Source: patient Mode of arrival: Ambulatory Limitations: Physical Limitation - History of Present Illness Initial Comments: 59-year-old male with history of alcohol abuse presents with complaint of chest pain. Patient has had multiple ED visits for chest pain. Patient underwent cardiac cath 2 months ago. [employer] Engineer note states, "Patient's cardiac catheterization showed angiographically normal coronary arteries, and a moderate severity nonischemic cardiomyopathy. Recommend medical therapy with guideline directed optimal medical therapy for nonischemic cardiomyopathy." Today, pt reports left-sided chest pain. SOme associated SOB onset ye afternoon. Patient denies nausea, vomiting, diaphoresis. Patient is currently asleep on stretcher. MD Complaint: chest pain -: days(s) (1) Onset: during rest Pain Location: left chest Pain Radiation: none Severity: mild Quality: sharp Consistency: now resolved Improves With: nothing Worsens With: nothing re: dyspnea. denies: nausea, vomting, diaphoresis Other Symptoms: denies: cough, fever - Related Data Previous Rx's Medication Instructions Recorded Last Taken Type predniSONE [Deltasone] 40 mg PO QDAY #10 tab 10/12/19 Unknown Rx Esomeprazole Magnesium [NexIUM] 40 mg PO QDAY #30 capsule. 10/18/19 Unknown Rx Aspirin 325 mg PO QDAY #30 tablet 10/23/19 Unknown Rx Metoprolol [Lopressor TAB] 25 mg PO BID #60 tablet 10/23/19 Unknown Rx Folic Acid [Folvite] 1 mg PO QDAY #30 tablet 11/01/19 Unknown Rx Pantoprazole [Protonix TAB] 40 mg PO QDAY #30 tablet 11/01/19 Unknown Rx Thiamine [Vitamin B-1] 100 mg PO QDAY #30 tablet 11/01/19 Unknown Rx Allergies Allergy/AdvReac Type Severity Reaction Status Date / Time No Known Allergies Allergy Verified 01/03/20 13:39 Heart Score - HEART Score History: Slightly suspicious EKG: Normal Age: 45-65 Risk factors: 1-2 risk factors Troponin: < normal limit HEART Score: 2 ED Review of Systems ROS: Stated complaint: CHEST PAIN Other details as noted in HPI Comment: All other systems reviewed and negative Constitutional: denies: chills, fever Respiratory: shortness of breath Cardiovascular: chest pain ED Past Medical Hx - Past Medical History Previous Medical History?: Yes Hx Hypertension: Yes Hx CVA: Yes (left) Hx Heart Attack/AMI: Yes Hx Congestive Heart Failure: No Hx Diabetes: No Hx Asthma: No Hx COPD: No Hx HIV: No Additional medical history: chronic pain in back, neck and L knee, ETOH abuse. herniated disc - Surgical History Past Surgical History?: Yes Additional Surgical History: Left Knee. skin graft to right hand - Social History Smoking Status: Current Every Day Smoker Substance Use Type: Alcohol - Medications Home Medications: Home Medications Medication Instructions Recorded Confirmed Last Taken Type predniSONE [Deltasone] 40 mg PO QDAY #10 tab 10/12/19 Unknown Rx Esomeprazole Magnesium [NexIUM] 40 mg PO QDAY #30 capsule.dr 10/18/19 Unknown Rx Aspirin 325 mg PO QDAY #30 tablet 10/23/19 Unknown Rx Metoprolol [Lopressor TAB] 25 mg PO BID #60 tablet 10/23/19 Unknown Rx Folic Acid [Folvite] 1 mg PO QDAY #30 tablet 11/01/19 Unknown Rx Pantoprazole [Protonix TAB] 40 mg PO QDAY #30 tablet 11/01/19 Unknown Rx Thiamine [Vitamin B-1] 100 mg PO QDAY #30 tablet 11/01/19 Unknown Rx ED Physical Exam - General Limitations: Physical Limitation General appearance: alert, in no apparent distress - Head Head exam: Present: atraumatic, normocephalic - Eye Eye exam: Present: normal appearance, EOMI - ENT ENT exam: Present: mucous membranes moist - Neck Neck exam: Present: normal inspection - Respiratory Respiratory exam: Present: normal lung sounds bilaterally. Absent: respiratory distress - Cardiovascular Cardiovascular Exam: Present: regular rate, normal rhythm - GI/Abdominal GI/Abdominal exam: Present: soft. Absent: distended, tenderness - Extremities Exam Extremities exam: Present: normal inspection - Neurological Exam Neurological exam: Present: alert, oriented X3 - Psychiatric Psychiatric exam: Present: normal affect, normal mood - Skin Skin exam: Present: warm, dry, intact, normal color ED Course Vital Signs 01/05/20 01/06/20 01/06/20 20:04 05:24 07:24 Temperature 97.6 F 98.1 F Pulse Rate 100 H 105 H Respiratory 18 18 19 Rate Blood Pressure 121/79 Blood Pressure 97/61 [Left] O2 Sat by Pulse 98 96 Oximetry MERT score - Mert Score Age > 65: (0) No Aspirin use within the Past 7 Days: (0) No 3 or more CAD Risk Factors: (0) No 2 or more Angina events in past 24 hrs: (0) No Known CAD with more than 50% Stenosis: (0) No Elevated Cardiac Markers: (0) No ST Deviation Greater than 0.5mm: (0) No MERT Score: 0 ED Medical Decision Making - Lab Data Result diagrams: 01/05/20 21:11 01/05/20 21:11 - EKG Data -: EKG Interpreted by Ms EKG shows normal: sinus rhythm, axis, intervals, QRS complexes, ST-T waves Rate: normal - EKG Data Interpretation: no acute changes - Radiology Data Radiology results: report reviewed, image reviewed Critical care attestation.: If time is entered above; I have spent that time in minutes in the direct care of this critically ill patient, excluding procedure time. ED Disposition Clinical Impression: Chest pain Disposition: TO HOME OR SELFCARE Is pt being admited?: No Condition: Stable Instructions: Chest Pain (ED) Referrals: DOMONIQUE JUAREZ MD [Primary Care Provider] - 3-5 Days Time of Disposition: 07:01
[2020-01-06 07:25] VITALS: BP 97/61
== END 2020-01-06 11:00 | disposition home or self-care (01) ==
LOC: ED 19:26
DX: R07.89 Other chest pain (principal); I25.2 Old myocardial infarction; I10 Essential (primary) hypertension; F17.200 Nicotine dependence, unspecified, uncomplicated; Z86.73 Personal history of transient ischemic attack (TIA), and cerebral infarction without residual deficits; Z98.890 Other specified postprocedural states; Z79.899 Other long term (current) drug therapy
CPT/HCPCS: 36415; 71045; 80048; 84484; 85007; 85025; 93005

== ENCOUNTER 2020-04-07 19:04 | Emergency (ER) | payer MEDICAID ==
[2020-04-07] MEDS ORDERED: ASPIRIN 325 MG TAB PO ONE (19:13)
[2020-04-07 19:44] VITALS: BP 116/82
--- NOTE | 2020-04-07 19:59 | XRay Report ---
CHEST 1 VIEW INDICATION / CLINICAL INFORMATION: Chest Pain. COMPARISON: 01/05/2020 FINDINGS: SUPPORT DEVICES: None. HEART / MEDIASTINUM: No significant abnormality. LUNGS / PLEURA: No significant pulmonary or pleural abnormality. No pneumothorax. ADDITIONAL FINDINGS: No significant additional findings. IMPRESSION: No acute pulmonary or pleural abnormality Signer Name: Gilmar Milner MD FACR Signed: 04/07/2020 7:55 PM Workstation Name: [id number]
[2020-04-07 20:00] LABS: Hematocrit 48.7 % (35.5-45.6); Hemoglobin 15.8 gm/dl (11.8-15.2); Mean Corpuscular HGB Conc 32 % (32-34); Mean Corpuscular Volume 89 fl (84-94); Platelet Count 168 K/mm3 (140-440); Red Blood Count 5.49 M/mm3 (3.65-5.03); Red Cell Distribution Width 15.8 % (13.2-15.2)
[2020-04-07 20:11] LABS: BUN/Creatinine Ratio 11; Blood Urea Nitrogen 9 mg/dL (9-20); Hemolysis Index 39
[2020-04-07 20:57] LABS: Anisocytosis RARE; Target Cells Few; Total Cells Counted 100
--- NOTE | 2020-04-08 02:12 | Emergency Department Report ---
ED Chest Pain HPI - General Chief Complaint: Chest Pain Stated Complaint: CHEST PAIN PUI?: No Time Seen by Provider: 04/08/20 01:50 Source: patient Mode of arrival: Ambulatory Limitations: No Limitations - History of Present Illness Initial Comments: She is a 59-year-old male that presents emergency room with complaints of chest pain rating to his left and right arm. Patient states been going on for 2 days. Patient states that his chest pain is worse with movement and palpation. Patient states his pain is better with rest. Patient denies shortness of breath. Patient denies fever and chills. Patient denies cough. Patient denies nausea vomiting. Patient denies anxiety. Patient denies vomiting. Patient denies diaphoresis. Patient denies recent travel. Patient denies recent international travel. Patient denies exposure to the novel coronavirus. Patient denies sick contacts. Patient denies fever and chills. Patient denies cough. Patient denies diarrhea. Patient denies coming in contact with anybody with symptoms of the novel coronavirus. MD Complaint: chest pain -: Sudden Onset: during rest Pain Location: substernal, left chest, right chest Pain Radiation: RUE, LUE Severity: severe Severity scale (0 -10): 10 Quality: sharp Consistency: constant Improves With: rest Worsens With: palpation, movement re: denies: nausea, vomting, diaphoresis, dyspnea, sense of impending doom Other Symptoms: denies: cough, fever, syncope, rash, acid taste in mouth, leg swelling, palpitations, burping Aspirin use within the Past 7 Days: (0) No - Related Data On Oral Contraceptives: No Previous Rx's Medication Instructions Recorded Last Taken Type predniSONE [Deltasone] 40 mg PO QDAY #10 tab 10/12/19 Unknown Rx Esomeprazole Magnesium [NexIUM] 40 mg PO QDAY #30 capsule. 10/18/19 Unknown Rx Aspirin 325 mg PO QDAY #30 tablet 10/23/19 Unknown Rx Metoprolol [Lopressor TAB] 25 mg PO BID #60 tablet 10/23/19 Unknown Rx Folic Acid [Folvite] 1 mg PO QDAY #30 tablet 11/01/19 Unknown Rx Pantoprazole [Protonix TAB] 40 mg PO QDAY #30 tablet 11/01/19 Unknown Rx Thiamine [Vitamin B-1] 100 mg PO QDAY #30 tablet 11/01/19 Unknown Rx Allergies Allergy/AdvReac Type Severity Reaction Status Date / Time No Known Allergies Allergy Verified 01/03/20 13:39 Heart Score - HEART Score History: Slightly suspicious EKG: Normal Age: 45-65 Risk factors: No known risk factors Troponin: < normal limit HEART Score: 1 ED Review of Systems ROS: Stated complaint: CHEST PAIN Other details as noted in HPI Constitutional: denies: chills, fever Eyes: denies: eye pain, eye discharge, vision change ENT: denies: ear pain, throat pain Respiratory: denies: cough, shortness of breath, wheezing Cardiovascular: chest pain. denies: palpitations Endocrine: no symptoms reported Gastrointestinal: denies: abdominal pain, nausea, diarrhea Genitourinary: denies: urgency, dysuria Musculoskeletal: denies: back pain, joint swelling, arthralgia Skin: denies: rash, lesions Neurological: denies: headache, weakness, paresthesias Psychiatric: denies: anxiety, depression Hematological/Lymphatic: denies: easy bleeding, easy bruising ED Past Medical Hx - Past Medical History Previous Medical History?: Yes Hx Hypertension: Yes Hx CVA: Yes (left) Hx Heart Attack/AMI: Yes Hx Congestive Heart Failure: No Hx Diabetes: No Hx Asthma: No Hx COPD: No Hx HIV: No Additional medical history: chronic pain in back, neck and L knee, ETOH abuse. herniated disc - Surgical History Past Surgical History?: Yes Additional Surgical History: Left Knee. skin graft to right hand - Family History Family history: no significant - Social History Smoking Status: Never Smoker Substance Use Type: Alcohol - Medications Home Medications: Home Medications Medication Instructions Recorded Confirmed Last Taken Type predniSONE [Deltasone] 40 mg PO QDAY #10 tab 10/12/19 Unknown Rx Esomeprazole Magnesium [NexIUM] 40 mg PO QDAY #30 capsule. 10/18/19 Unknown Rx Aspirin 325 mg PO QDAY #30 tablet 10/23/19 Unknown Rx Metoprolol [Lopressor TAB] 25 mg PO BID #60 tablet 10/23/19 Unknown Rx Folic Acid [Folvite] 1 mg PO QDAY #30 tablet 11/01/19 Unknown Rx Pantoprazole [Protonix TAB] 40 mg PO QDAY #30 tablet 11/01/19 Unknown Rx Thiamine [Vitamin B-1] 100 mg PO QDAY #30 tablet 11/01/19 Unknown Rx ED Physical Exam - General Limitations: No Limitations General appearance: alert, in no apparent distress - Head Head exam: Present: atraumatic, normocephalic - Eye Eye exam: Present: normal appearance - ENT ENT exam: Present: mucous membranes moist - Neck Neck exam: Present: normal inspection - Respiratory Respiratory exam: Present: normal lung sounds bilaterally, chest wall tenderness (Reproduces symptoms. Patient has bilateral chest wall tenderness.). Absent: respiratory distress - Cardiovascular Cardiovascular Exam: Present: regular rate, normal rhythm. Absent: systolic murmur, diastolic murmur, rubs, gallop - GI/Abdominal GI/Abdominal exam: Present: soft, normal bowel sounds. Absent: distended, tenderness, guarding - Rectal Rectal exam: Present: deferred - Extremities Exam Extremities exam: Present: normal inspection - Back Exam Back exam: Present: normal inspection - Neurological Exam Neurological exam: Present: alert, oriented X3 - Psychiatric Psychiatric exam: Present: normal affect, normal mood - Skin Skin exam: Present: warm, dry, intact, normal color. Absent: rash ED Course Vital Signs 04/07/20 19:40 Temperature 98.2 F Pulse Rate 104 H Respiratory 18 Rate Blood Pressure 116/82 O2 Sat by Pulse 99 Oximetry - Reevaluation(s) Reevaluation #1: I discussed all results and clinical findings with patient. I discussed plan of care with patient. Patient agrees with plan of care. Patient is stable for discharge. Patient will be discharged home. Patient given discharge instructions. Patient voiced understanding of discharge instructions. 04/08/20 02:06 MERT score - Mert Score Age > 65: (0) No Aspirin use within the Past 7 Days: (0) No 3 or more CAD Risk Factors: (0) No 2 or more Angina events in past 24 hrs: (0) No Known CAD with more than 50% Stenosis: (0) No Elevated Cardiac Markers: (0) No ST Deviation Greater than 0.5mm: (0) No MERT Score: 0 ED Medical Decision Making - Lab Data Result diagrams: 04/07/20 19:27 04/07/20 19:27 - EKG Data -: EKG Interpreted by Me EKG shows normal: sinus rhythm, axis, intervals, QRS complexes, ST-T waves Rate: normal - Radiology Data Radiology results: report reviewed, image reviewed interpreted by me: Chest x-ray: No pneumonia, no pneumothorax, no foreign body, no osseous findings, no acute findings CHEST 1 VIEW INDICATION / CLINICAL INFORMATION: Chest Pain. COMPARISON: 01/05/2020 FINDINGS: SUPPORT DEVICES: None. HEART / MEDIASTINUM: No significant abnormality. LUNGS / PLEURA: No significant pulmonary or pleural abnormality. No pneumothorax. ADDITIONAL FINDINGS: No significant additional findings. IMPRESSION: No acute pulmonary or pleural abnormality - Medical Decision Making Patient is a 59-year-old male that presents emergency room with complaints of musculoskeletal chest pain. Patient's chest pain has been going on for over 24 hours. Patient had 2 - cardiac enzymes. Patient's labs are essentially unremarkable. Patient chest x-ray is negative. Patient EKG is negative for acute findings. Patient does not have any signs of a STEMI. Patient chest pain is reproducible on palpation. Patient's findings excessive with chest wall pain and costochondritis. Patient's heart score is negative. Patient's MERT score is negative. Patient's relative risk is low. Patient's chest pain can be followed up by his primary care. Patient will be discharged home. Patient stable for discharge.. - Differential Diagnosis Chest pain, costochondritis, chest wall sprain. Critical care attestation.: If time is entered above; I have spent that time in minutes in the direct care of this critically ill patient, excluding procedure time. ED Disposition Clinical Impression: Costochondritis, acute Chest pain Qualifiers: Chest pain type: unspecified Qualified Code(s): R07.9 - Chest pain, unspecified Disposition: DC-01 TO HOME OR SELFCARE Is pt being admited?: No Does the pt Need Aspirin: No Condition: Stable Instructions: Chest Pain (ED), Costochondritis, [id number] Additional Instructions: Patient to follow-up with primary care in 2 to 3 days. Patient to rest. Patient to increase water. Patient to avoid strenuous exercise or heavy lifting until cleared by primary care. Patient to take Tylenol or ibuprofen as needed for pain. Patient to take meds as directed. Patient to return to the ER if con dition worsens, changes or new symptoms arise. Referrals: [facility], MD [Primary Care Provider] - 2-3 Days Time of Disposition: 02:14
== END 2020-04-08 02:22 | disposition home or self-care (01) ==
LOC: ED 19:04
DX: M94.0 Chondrocostal junction syndrome [Tietze] (principal); R07.89 Other chest pain; I25.2 Old myocardial infarction; I10 Essential (primary) hypertension; Z98.890 Other specified postprocedural states; Z79.899 Other long term (current) drug therapy
CPT/HCPCS: 36415; 71045; 80048; 84484; 85007; 85025; 93005

== ENCOUNTER 2020-04-11 22:36 | Emergency (ER) | payer MEDICAID ==
--- NOTE | 2020-04-11 23:01 | Event Note ---
ED Screening Note Date of service: 04/11/20 Time: 22:59 ED Screening Note: Patient is a 59-year-old -[place]og[place] male history of hypertension and GERD, and occasional EtOH denies EtOH. Patient presents tonight for chest pain 4/10 substernal radiating to left lateral chest wall. States is worsening since 3 days ago. Patient denies shortness of breath however there is nausea no vomiting. There is been no diaphoresis no dizziness lightheadedness or headache. Patient denies paralysis or paresthesia. Patient drove self to ED tonight. States symptoms just not getting better. This initial assessment/diagnostic orders/clinical plan/treatment(s) is/are subject to change based on patients health status, clinical progression and re- assessment by fellow clinical providers in the ED. Further treatment and workup at subsequent clinical providers discretion. Patient/guardian urged not to elope from the ED as their condition may be serious if not clinically assessed and managed. Initial orders include: EKG, CXR, Trop, CMP, CBC, Lipase
[2020-04-11 23:33] LABS: Basophils % (Auto) 0.4 % (0.0-1.8); Eosinophils # (Auto) 0.1 K/mm3 (0.0-0.4); Eosinophils % (Auto) 1.3 % (0.0-4.3); Hematocrit 45.7 % (35.5-45.6); Hemoglobin 15.1 gm/dl (11.8-15.2); Lymphocytes # (Auto) 1.9 K/mm3 (1.2-5.4); Lymphocytes % (Auto) 46.8 % (13.4-35.0); Mean Corpuscular HGB Conc 33 % (32-34); Mean Corpuscular Volume 88 fl (84-94); Monocytes # (Auto) 0.3 K/mm3 (0.0-0.8); Monocytes % (Auto) 8.2 % (0.0-7.3); Platelet Count 162 K/mm3 (140-440); Red Blood Count 5.18 M/mm3 (3.65-5.03); Red Cell Distribution Width 15.2 % (13.2-15.2)
[2020-04-11 23:47] LABS: Alanine Aminotransferase 22 units/L (7-56); Blood Urea Nitrogen 9 mg/dL (9-20); Calcium 9.5 mg/dL (8.4-10.2); Hemolysis Index 3
[2020-04-11 23:48] LABS: BUN/Creatinine Ratio 15
--- NOTE | 2020-04-11 23:51 | XRay Report ---
CHEST 1 VIEW 11:43 PM INDICATION / CLINICAL INFORMATION: Chest pain for 2 to 3 weeks. COMPARISON: 04/07/20. FINDINGS: SUPPORT DEVICES: None. HEART / MEDIASTINUM: The heart size and pulmonary vasculature are normal. There is mild aortic tortuo sity without aneurysm. LUNGS / PLEURA: No significant pulmonary or pleural abnormality. No pneumothorax. ADDITIONAL FINDINGS: No significant additional findings. IMPRESSION: No acute abnormality or significant change. Signer Name: Dany Laboy MD Signed: 04/11/2020 11:47 PM Workstation Name: [id number]
--- NOTE | 2020-04-12 00:32 | Emergency Department Report ---
ED Chest Pain HPI - General Chief Complaint: Chest Pain Stated Complaint: CHEST PAIN/TANVI Time Seen by Provider: 04/12/20 00:00 Source: patient Mode of arrival: Ambulatory Limitations: No Limitations - History of Present Illness Initial Comments: 59-year-old male with history of chronic alcoholism, recurrent chest pain, presents to ED with complaint of chest pain x2 weeks. Patient was seen 4 days ago in ED for same. Patient reports pain with swallowing, eating foods, talking, and palpation. States pain is sharp and located in the substernal area. He denies any pleuritic component. Patient denies any vomiting, fever, cough, leg pain or swelling. He reports some shortness of breath. MD Complaint: chest pain -: week(s) (2) Onset: during rest Pain Location: substernal Pain Radiation: none Severity: moderate Severity scale (0 -10): 10 Quality: sharp Consistency: intermittent Improves With: nothing Worsens With: eating, palpation, other (talking) re: dyspnea. denies: nausea, vomting, diaphoresis Other Symptoms: denies: cough, fever, leg swelling Treatments Prior to Arrival: none - Related Data Previous Rx's Medication Instructions Recorded Last Taken Type predniSONE [Deltasone] 40 mg PO QDAY #10 tab 10/12/19 Unknown Rx Esomeprazole Magnesium [NexIUM] 40 mg PO QDAY #30 capsule. 10/18/19 Unknown Rx Aspirin 325 mg PO QDAY #30 tablet 10/23/19 Unknown Rx Metoprolol [Lopressor TAB] 25 mg PO BID #60 tablet 10/23/19 Unknown Rx Folic Acid [Folvite] 1 mg PO QDAY #30 tablet 11/01/19 Unknown Rx Pantoprazole [Protonix TAB] 40 mg PO QDAY #30 tablet 11/01/19 Unknown Rx Thiamine [Vitamin B-1] 100 mg PO QDAY #30 tablet 11/01/19 Unknown Rx Allergies Allergy/AdvReac Type Severity Reaction Status Date / Time No Known Allergies Allergy Verified 01/03/20 13:39 Heart Score - HEART Score History: Slightly suspicious EKG: Normal Age: 45-65 Risk factors: 1-2 risk factors Troponin: < normal limit HEART Score: 2 ED Review of Systems ROS: Stated complaint: CHEST PAIN/TANVI Other details as noted in HPI Comment: All other systems reviewed and negative Constitutional: denies: chills, fever Respiratory: shortness of breath. denies: cough Cardiovascular: chest pain Gastrointestinal: denies: nausea, vomiting ED Past Medical Hx - Past Medical History Previous Medical History?: Yes Hx Hypertension: Yes Hx CVA: Yes (left) Hx Heart Attack/AMI: Yes Hx Congestive Heart Failure: No Hx Diabetes: No Hx Asthma: No Hx COPD: No Hx HIV: No Additional medical history: chronic pain in back, neck and L knee, ETOH abuse. herniated disc - Surgical History Additional Surgical History: Left Knee. skin graft to right hand - Social History Smoking Status: Never Smoker Substance Use Type: None - Medications Home Medications: Home Medications Medication Instructions Recorded Confirmed Last Taken Type predniSONE [Deltasone] 40 mg PO QDAY #10 tab 10/12/19 Unknown Rx Esomeprazole Magnesium [NexIUM] 40 mg PO QDAY #30 capsule. 10/18/19 Unknown Rx Aspirin 325 mg PO QDAY #30 tablet 10/23/19 Unknown Rx Metoprolol [Lopressor TAB] 25 mg PO BID #60 tablet 10/23/19 Unknown Rx Folic Acid [Folvite] 1 mg PO QDAY #30 tablet 11/01/19 Unknown Rx Pantoprazole [Protonix TAB] 40 mg PO QDAY #30 tablet 11/01/19 Unknown Rx Thiamine [Vitamin B-1] 100 mg PO QDAY #30 tablet 11/01/19 Unknown Rx ED Physical Exam - General Limitations: No Limitations General appearance: alert, in no apparent distress - Head Head exam: Present: atraumatic, normocephalic - Eye Eye exam: Present: normal appearance, EOMI - ENT ENT exam: Present: mucous membranes moist - Neck Neck exam: Present: normal inspection - Respiratory Respiratory exam: Present: normal lung sounds bilaterally, chest wall tenderness. Absent: respiratory distress - Cardiovascular Cardiovascular Exam: Present: regular rate, normal rhythm - GI/Abdominal GI/Abdominal exam: Present: soft. Absent: distended, tenderness - Extremities Exam Extremities exam: Present: normal inspection. Absent: pedal edema, calf tenderness - Neurological Exam Neurological exam: Present: alert, oriented X3 - Psychiatric Psychiatric exam: Present: normal affect, normal mood - Skin Skin exam: Present: warm, dry, intact, normal color ED Course Vital Signs 04/11/20 04/12/20 22:57 00:18 Temperature 98.5 F Pulse Rate 72 93 H Respiratory 18 18 Rate Blood Pressure 103/79 102/68 [Left] O2 Sat by Pulse 98 99 Oximetry MERT score - Mert Score Age > 65: (0) No Aspirin use within the Past 7 Days: (0) No 3 or more CAD Risk Factors: (0) No 2 or more Angina events in past 24 hrs: (0) No Known CAD with more than 50% Stenosis: (0) No Elevated Cardiac Markers: (0) No ST Deviation Greater than 0.5mm: (0) No MERT Score: 0 ED Medical Decision Making - Lab Data Result diagrams: 04/11/20 23:11 04/11/20 23:11 - EKG Data -: EKG Interpreted by Tn EKG shows normal: sinus rhythm, axis, intervals, QRS complexes, ST-T waves Rate: normal - EKG Data When compared to previous EKG there are: no significant change - Radiology Data Radiology results: report reviewed, image reviewed Critical care attestation.: If time is entered above; I have spent that time in minutes in the direct care of this critically ill patient, excluding procedure time. ED Disposition Clinical Impression: Chest wall tenderness Disposition: DC-01 TO HOME OR SELFCARE Is pt being admited?: No Condition: Stable Instructions: Chest Wall Pain, [id number] Referrals: PRIMARY CAREMD [Primary Care Provider] - 3-5 Days [facility] [Provider Group] - 3-5 Days ZAIN FERNANDEZ MD [Staff Physician] - 3-5 Days
[2020-04-12] MEDS ORDERED: LIDOCAINE VISCOUS 2% 15 ML ORAL LIQD PO ONE (01:37)
[2020-04-12] MEDS ORDERED: ALUM-MAG HYDROXIDE-SIMETHICONE 200-200-20MG/5ML ORAL LIQD 30 ML PO ONE (01:37)
[2020-04-12 02:23] VITALS: BP 112/75
== END 2020-04-12 02:20 | disposition home or self-care (01) ==
LOC: ED 22:36
DX: R07.89 Other chest pain (principal); I10 Essential (primary) hypertension; I25.2 Old myocardial infarction; Z98.890 Other specified postprocedural states; Z79.899 Other long term (current) drug therapy
CPT/HCPCS: 36415; 71045; 80053; 83690; 84484; 85025; 93005

== ENCOUNTER 2020-05-03 00:56 | Emergency (ER) | payer MEDICAID ==
[2020-05-03 01:07] VITALS: BP 138/75
[2020-05-03] MEDS ORDERED: ASPIRIN 325 MG TAB PO ONE (01:09)
--- NOTE | 2020-05-03 01:18 | Event Note ---
ED Screening Note Date of service: 05/03/20 Time: 01:16 ED Screening Note: pt is a 59 y/o aam who presents for substernal cp x 2 days, painis described as 5/10 sharp, pain is relieved by nothing, pain is exacerbated by nothing, pains 3/10 a ahti stime This initial assessment/diagnostic orders/clinical plan/treatment(s) is/are subject to change based on patients health status, clinical progression and re- assessment by fellow clinical providers in the ED. Further treatment and workup at subsequent clinical providers discretion. Patient/guardian urged not to elope from the ED as their condition may be serious if not clinically assessed and managed. Initial orders include: CMP, cBC, UA, Trop , Ekg, CXR
[2020-05-03 02:01] LABS: Basophils % (Auto) 0.6 % (0.0-1.8); Eosinophils # (Auto) 0.1 K/mm3 (0.0-0.4); Eosinophils % (Auto) 1.5 % (0.0-4.3); Hematocrit 39.7 % (35.5-45.6); Hemoglobin 13.3 gm/dl (11.8-15.2); Lymphocytes # (Auto) 2.3 K/mm3 (1.2-5.4); Lymphocytes % (Auto) 52.2 % (13.4-35.0); Mean Corpuscular HGB Conc 34 % (32-34); Mean Corpuscular Volume 87 fl (84-94); Monocytes # (Auto) 0.4 K/mm3 (0.0-0.8); Monocytes % (Auto) 8.5 % (0.0-7.3); Platelet Count 129 K/mm3 (140-440); Red Blood Count 4.54 M/mm3 (3.65-5.03); Red Cell Distribution Width 15.6 % (13.2-15.2)
[2020-05-03 02:22] LABS: Alanine Aminotransferase 20 units/L (7-56); Albumin 4.8 g/dL (3.9-5); Blood Urea Nitrogen 12 mg/dL (9-20); Calcium 8.6 mg/dL (8.4-10.2); Hemolysis Index 5
--- NOTE | 2020-05-03 02:28 | XRay Report ---
. XR chest 1V ap INDICATION / CLINICAL INFORMATION: Chest Pain. COMPARISON: 04/11/2020 FINDINGS: SUPPORT DEVICES: None. HEART /PULMONARY VASCULATURE: No significant abnormality. LUNGS / PLEURA: No significant pulmonary or pleural abnormality. No pneumothorax. ADDITIONAL FINDINGS: No significant additional findings. IMPRESSION: 1. No acute findings. Signer Name: Tom Amador MD Signed: 05/03/2020 2:23 AM Workstation Name: [id number]
[2020-05-03 02:41] LABS: BUN/Creatinine Ratio 20
[2020-05-03] MEDS ORDERED: PANTOPRAZOLE 40 MG TAB PO ONE (03:00)
--- NOTE | 2020-05-03 03:00 | Emergency Department Report ---
ED General Adult HPI - General Chief complaint: Chest Pain Stated complaint: CHEST PAIN Time Seen by Provider: 05/03/20 02:51 Source: patient Mode of arrival: Ambulatory Limitations: Physical Limitation - History of Present Illness Initial comments: Patient is 59 years old male with recurrent chest pain. Patient has been seen here several times for the same complaint. Patient stated that he is having substernal chest pain that comes and goes. Patient admitted that he has been drinking alcohol. Patient describes his chest pain as burning sensation. No radiation to the left arm. Patient denied any fever or chills. - Related Data Previous Rx's Medication Instructions Recorded Last Taken Type predniSONE [Deltasone] 40 mg PO QDAY #10 tab 10/12/19 Unknown Rx Esomeprazole Magnesium [NexIUM] 40 mg PO QDAY #30 capsule. 10/18/19 Unknown Rx Aspirin 325 mg PO QDAY #30 tablet 10/23/19 Unknown Rx Metoprolol [Lopressor TAB] 25 mg PO BID #60 tablet 10/23/19 Unknown Rx Folic Acid [Folvite] 1 mg PO QDAY #30 tablet 11/01/19 Unknown Rx Pantoprazole [Protonix TAB] 40 mg PO QDAY #30 tablet 11/01/19 Unknown Rx Thiamine [Vitamin B-1] 100 mg PO QDAY #30 tablet 11/01/19 Unknown Rx Allergies Allergy/AdvReac Type Severity Reaction Status Date / Time No Known Allergies Allergy Verified 01/03/20 13:39 ED Review of Systems ROS: Stated complaint: CHEST PAIN Other details as noted in HPI Comment: All other systems reviewed and negative Constitutional: denies: chills, fever Respiratory: denies: cough, shortness of breath, SOB with exertion, SOB at rest Cardiovascular: chest pain. denies: palpitations, dyspnea on exertion Gastrointestinal: denies: abdominal pain, nausea, vomiting Musculoskeletal: denies: back pain ED Past Medical Hx - Past Medical History Previous Medical History?: Yes Hx Hypertension: Yes Hx CVA: Yes (left) Hx Heart Attack/AMI: Yes Hx Congestive Heart Failure: No Hx Diabetes: No Hx Asthma: No Hx COPD: No Hx HIV: No Additional medical history: chronic pain in back, neck and L knee, ETOH abuse. herniated disc - Surgical History Past Surgical History?: Yes Additional Surgical History: Left Knee. skin graft to right hand - Social History Smoking Status: Never Smoker Substance Use Type: None - Medications Home Medications: Home Medications Medication Instructions Recorded Confirmed Last Taken Type predniSONE [Deltasone] 40 mg PO QDAY #10 tab 10/12/19 Unknown Rx Esomeprazole Magnesium [NexIUM] 40 mg PO QDAY #30 capsule. 10/18/19 Unknown Rx Aspirin 325 mg PO QDAY #30 tablet 10/23/19 Unknown Rx Metoprolol [Lopressor TAB] 25 mg PO BID #60 tablet 10/23/19 Unknown Rx Folic Acid [Folvite] 1 mg PO QDAY #30 tablet 11/01/19 Unknown Rx Pantoprazole [Protonix TAB] 40 mg PO QDAY #30 tablet 11/01/19 Unknown Rx Thiamine [Vitamin B-1] 100 mg PO QDAY #30 tablet 11/01/19 Unknown Rx ED Physical Exam - General Limitations: Physical Limitation General appearance: alert, in no apparent distress - Head Head exam: Present: atraumatic, normocephalic, normal inspection - Eye Eye exam: Present: normal appearance, PERRL - ENT ENT exam: Present: normal exam, normal orophraynx, mucous membranes moist - Neck Neck exam: Present: normal inspection. Absent: tenderness, meningismus - Respiratory Respiratory exam: Present: normal lung sounds bilaterally - Cardiovascular Cardiovascular Exam: Present: regular rate, normal rhythm, normal heart sounds - GI/Abdominal GI/Abdominal exam: Present: soft, normal bowel sounds. Absent: distended, tenderness, guarding, rebound, rigid, organomegaly, mass, bruit, pulsatile mass, hernia - Extremities Exam Extremities exam: Present: normal inspection, full ROM, normal capillary refill. Absent: tenderness, pedal edema, joint swelling - Back Exam Back exam: Present: normal inspection, full ROM. Absent: CVA tenderness (R), CVA tenderness (L) - Neurological Exam Neurological exam: Present: alert, oriented X3, CN II-XII intact - Psychiatric Psychiatric exam: Present: normal mood - Skin Skin exam: Present: warm, intact, normal color ED Course Vital Signs 05/03/20 01:05 Temperature 97.5 F L Pulse Rate 108 H Respiratory 17 Rate Blood Pressure 138/75 O2 Sat by Pulse 100 Oximetry ED Medical Decision Making - Lab Data Result diagrams: 05/03/20 01:18 05/03/20 01:18 - EKG Data -: EKG Interpreted by Me EKG shows normal: sinus rhythm Rate: normal - EKG Data Interpretation: no acute changes - Radiology Data Radiology results: report reviewed - Medical Decision Making Patient is 59 years old male with recurrent chest pain. Patient has been seen here several times for the same complaint. Patient stated that he is having substernal chest pain that comes and goes. Patient admitted that he has been drinking alcohol. Patient describes his chest pain as burning sensation. No radiation to the left arm. Patient denied any fever or chills. EKG showed no evidence of ST elevation or depression. Chest x-ray is unremarkable. Labs reviewed and is unremarkable including a negative troponin. Patient has multiple cardiac work-up done here before with no positive finding. Patient received Nexium and stated that his pain is much better. Patient chest pain is atypical and most likely related to alcohol gastritis however patient advised to follow-up with his primary care physician for outpatient cardiac work-up and to return to the ER if he develop any new symptoms. Critical care attestation.: If time is entered above; I have spent that time in minutes in the direct care of this critically ill patient, excluding procedure time. ED Disposition Clinical Impression: Chest pain Disposition: DC-01 TO HOME OR SELFCARE Is pt being admited?: No Condition: Stable Instructions: Chest Pain (ED), Nonspecific Chest Pain, Adult Referrals: PRIMARY CARE, [Primary Care Provider] - 3-5 Days
== END 2020-05-03 03:15 | disposition home or self-care (01) ==
LOC: ED 00:56
DX: R07.89 Other chest pain (principal); I10 Essential (primary) hypertension; I25.2 Old myocardial infarction; Z79.899 Other long term (current) drug therapy
CPT/HCPCS: 36415; 71045; 80053; 84484; 85025; 93005

== ENCOUNTER 2020-05-06 01:14 | Emergency (ER) | payer MEDICAID ==
[2020-05-06 02:10] VITALS: BP 133/87
[2020-05-06] MEDS ORDERED: ASPIRIN 325 MG TAB PO ONE (02:13)
[2020-05-06 02:30] LABS: Basophils % (Auto) 0.9 % (0.0-1.8); Eosinophils # (Auto) 0.1 K/mm3 (0.0-0.4); Eosinophils % (Auto) 1.5 % (0.0-4.3); Hematocrit 37.7 % (35.5-45.6); Hemoglobin 12.6 gm/dl (11.8-15.2); Lymphocytes # (Auto) 1.6 K/mm3 (1.2-5.4); Mean Corpuscular HGB Conc 33 % (32-34); Mean Corpuscular Volume 86 fl (84-94); Monocytes # (Auto) 0.4 K/mm3 (0.0-0.8); Monocytes % (Auto) 9.9 % (0.0-7.3); Platelet Count 140 K/mm3 (140-440); Red Blood Count 4.39 M/mm3 (3.65-5.03); Red Cell Distribution Width 14.7 % (13.2-15.2)
--- NOTE | 2020-05-06 02:48 | XRay Report ---
CHEST 1 VIEW 05/06/2020 1:39 AM INDICATION / CLINICAL INFORMATION: Chest Pain. COMPARISON: 05/03/2020 FINDINGS: SUPPORT DEVICES: None. HEART / MEDIASTINUM: No significant abnormality. LUNGS / PLEURA: No significant pulmonary or pleural abnormality. No pneumothorax. ADDITIONAL FINDINGS: No significant additional findings. IMPRESSION: 1. No acute findings. Signer Name: Jesus Weeks MD Signed: 05/06/2020 2:44 AM Workstation Name: [email or web address]
[2020-05-06 02:56] LABS: Blood Urea Nitrogen 12 mg/dL (9-20); Calcium 8.8 mg/dL (8.4-10.2); Hemolysis Index 6
[2020-05-06 03:00] LABS: BUN/Creatinine Ratio 20
--- NOTE | 2020-05-06 03:37 | Emergency Department Report ---
ED Chest Pain HPI - General Chief Complaint: Chest Pain Stated Complaint: CHEST PAIN;SOB PUI?: No Time Seen by Provider: 05/06/20 03:31 Source: patient, RN notes reviewed, old records reviewed Mode of arrival: Ambulatory Limitations: No Limitations - History of Present Illness Initial Comments: Patient is a 59-year-old male who presents emergency room with complaints of chest pain 5 days. Patient states that his chest pain is in the center of his chest. Patient states chest pain is worse with movement and better with rest. Patient denies shortness of breath. Patient states he vomited one time yesterday. Patient denies blood in his vomitus. Patient denies abdominal pain. Patient denies fever and chills. Patient states the chest pain is a 4 out of 10. Patient states the chest pain is nonradiating. Patient denies shortness of breath. Patient denies nausea or vomiting at this time. Patient denies diaphoresis. Patient was seen here 3 days ago and had a cardiac work-up that was negative. Patient was discharged home. Patient's chart reviewed. No changes in EKG. Patient denies recent travel. Patient denies recent international travel. Patient denies exposure to the novel coronavirus. Patient denies sick contacts. Patient denies fever and chills. Patient denies cough. Patient denies diarrhea. Patient denies coming in contact with anybody with symptoms of the novel coronavirus. MD Complaint: chest pain -: Sudden Onset: during rest Pain Location: substernal Pain Radiation: none Severity scale (0 -10): 4 Quality: heaviness Consistency: constant Improves With: rest Worsens With: palpation, movement re: nausea, vomting. denies: diaphoresis, dyspnea, sense of impending doom Other Symptoms: denies: cough, fever, syncope, rash, acid taste in mouth, leg swelling, palpitations, burping - Related Data Previous Rx's Medication Instructions Recorded Last Taken Type predniSONE [Deltasone] 40 mg PO QDAY #10 tab 10/12/19 Unknown Rx Esomeprazole Magnesium [NexIUM] 40 mg PO QDAY #30 capsule. 10/18/19 Unknown Rx Aspirin 325 mg PO QDAY #30 tablet 10/23/19 Unknown Rx Metoprolol [Lopressor TAB] 25 mg PO BID #60 tablet 10/23/19 Unknown Rx Folic Acid [Folvite] 1 mg PO QDAY #30 tablet 11/01/19 Unknown Rx Pantoprazole [Protonix TAB] 40 mg PO QDAY #30 tablet 11/01/19 Unknown Rx Thiamine [Vitamin B-1] 100 mg PO QDAY #30 tablet 11/01/19 Unknown Rx Allergies Allergy/AdvReac Type Severity Reaction Status Date / Time No Known Allergies Allergy Verified 01/03/20 13:39 Heart Score - HEART Score History: Slightly suspicious EKG: Normal Age: 45-65 Risk factors: > 3 risk factors or hx of atherosclerotic disease Troponin: < normal limit HEART Score: 3 ED Review of Systems ROS: Stated complaint: CHEST PAIN;SOB Other details as noted in HPI Constitutional: denies: chills, fever Eyes: denies: eye pain, eye discharge, vision change ENT: denies: ear pain, throat pain Respiratory: denies: cough, shortness of breath, wheezing Cardiovascular: as per HPI, chest pain. denies: palpitations Endocrine: no symptoms reported Gastrointestinal: denies: abdominal pain, nausea, diarrhea Genitourinary: denies: urgency, dysuria Musculoskeletal: denies: back pain, joint swelling, arthralgia Skin: denies: rash, lesions Neurological: denies: headache, weakness, paresthesias Psychiatric: denies: anxiety, depression Hematological/Lymphatic: denies: easy bleeding, easy bruising ED Past Medical Hx - Past Medical History Previous Medical History?: Yes Hx Hypertension: Yes Hx CVA: Yes (left) Hx Heart Attack/AMI: Yes Hx Congestive Heart Failure: No Hx Diabetes: No Hx Asthma: No Hx COPD: No Hx HIV: No Additional medical history: chronic pain in back, neck and L knee, ETOH abuse. herniated disc - Surgical History Past Surgical History?: Yes Additional Surgical History: Left Knee. skin graft to right hand - Family History Family history: no significant - Social History Smoking Status: Never Smoker Substance Use Type: Alcohol - Medications Home Medications: Home Medications Medication Instructions Recorded Confirmed Last Taken Type predniSONE [Deltasone] 40 mg PO QDAY #10 tab 10/12/19 Unknown Rx Esomeprazole Magnesium [NexIUM] 40 mg PO QDAY #30 capsule. 10/18/19 Unknown Rx Aspirin 325 mg PO QDAY #30 tablet 10/23/19 Unknown Rx Metoprolol [Lopressor TAB] 25 mg PO BID #60 tablet 10/23/19 Unknown Rx Folic Acid [Folvite] 1 mg PO QDAY #30 tablet 11/01/19 Unknown Rx Pantoprazole [Protonix TAB] 40 mg PO QDAY #30 tablet 11/01/19 Unknown Rx Thiamine [Vitamin B-1] 100 mg PO QDAY #30 tablet 11/01/19 Unknown Rx ED Physical Exam - General Limitations: No Limitations General appearance: alert, in no apparent distress - Head Head exam: Present: atraumatic, normocephalic - Eye Eye exam: Present: normal appearance - ENT ENT exam: Present: mucous membranes moist - Neck Neck exam: Present: normal inspection - Respiratory Respiratory exam: Present: normal lung sounds bilaterally, chest wall tenderness (Patient has chest wall tenderness to the sternal region. palpation of the chest wall reproduces symptoms.). Absent: respiratory distress - Cardiovascular Cardiovascular Exam: Present: regular rate, normal rhythm. Absent: systolic murmur, diastolic murmur, rubs, gallop - GI/Abdominal GI/Abdominal exam: Present: soft, normal bowel sounds - Rectal Rectal exam: Present: deferred - Extremities Exam Extremities exam: Present: normal inspection - Back Exam Back exam: Present: normal inspection - Neurological Exam Neurological exam: Present: alert, oriented X3 - Psychiatric Psychiatric exam: Present: normal affect, normal mood - Skin Skin exam: Present: warm, dry, intact, normal color. Absent: rash ED Course Vital Signs 05/06/20 02:02 Temperature 98.3 F Pulse Rate 84 Respiratory 17 Rate Blood Pressure 133/87 O2 Sat by Pulse 99 Oximetry - Reevaluation(s) Reevaluation #1: I discussed all results and clinical findings with patient. I discussed plan of care with patient. Patient agrees with plan of care. Patient is stable for discharge. Patient will be discharged home. Patient given discharge ins tructions. Patient voiced understanding of discharge instructions. 05/06/20 03:57 MERT score - Mert Score Age > 65: (0) No Aspirin use within the Past 7 Days: (0) No 3 or more CAD Risk Factors: (1) Yes 2 or more Angina events in past 24 hrs: (0) No Known CAD with more than 50% Stenosis: (0) No Elevated Cardiac Markers: (0) No ST Deviation Greater than 0.5mm: (0) No MERT Score: 1 ED Medical Decision Making - Lab Data Result diagrams: 05/06/20 02:19 05/06/20 02:19 - EKG Data -: EKG Interpreted by Me EKG shows normal: sinus rhythm, axis, intervals, QRS complexes, ST-T waves Rate: normal - Radiology Data Radiology results: report reviewed, image reviewed interpreted by me: Chest x-ray: No pneumonia, no pneumothorax, no foreign body, no osseous findings, no acute findings CHEST 1 VIEW 05/06/2020 1:39 AM INDICATION / CLINICAL INFORMATION: Chest Pain. COMPARISON: 05/03/2020 FINDINGS: SUPPORT DEVICES: None. HEART / MEDIASTINUM: No significant abnormality. LUNGS / PLEURA: No significant pulmonary or pleural abnormality. No pneumothorax. ADDITIONAL FINDINGS: No significant additional findings. IMPRESSION: 1. No acute findings. - Medical Decision Making Patient is a 59-year-old male who presents emergency room with complaints of chest pain 5 days. Patient's chest pain is reproducible on palpation. Patient's clinical findings are consistent with a chest wall sprain or chest wall pain. Patient had labs and EKG and chest x-ray. Patient's labs EKG and chest x-ray reviewed by me. Patient's EKG was negative for acute findings and showed normal ST and a sinus rhythm. Patient's chest x-ray was normal and had no acute findings. Patient's labs were essentially unremarkable. Patient's cardiac enzymes were negative. Patient was seen here 3 days ago and had a cardiac work-up to include labs and EKG and chest x-ray. I reviewed the results and the clinical findings in the chart from that visit and the results have not changed. Patient's cardiac enzymes were negative that are negative today. Patient stable for discharge. Patient follow-up with front desk manager as an outpatient. - Differential Diagnosis Chest pain, chest wall pain. Chest pain. Muscular pain. Critical care attestation.: If time is entered above; I have spent that time in minutes in the direct care of this critically ill patient, excluding procedure time. ED Disposition Clinical Impression: Chest pain Qualifiers: Chest pain type: unspecified Qualified Code(s): R07.9 - Chest pain, unspecified Disposition: DC-01 TO HOME OR SELFCARE Is pt being admited?: No Does the pt Need Aspirin: No Condition: Stable Instructions: Chest Pain (ED), Nonspecific Chest Pain, Adult, [id number], Chest Wall Pain, [id number] Additional Instructions: Patient to follow-up with primary care in 2 to 3 days. Patient to follow-up with front desk manager in 2 to 3 days. Patient to rest. Patient to increase water. Patient to avoid strenuous exercise or heavy lifting until cleared by front desk manager. Patient to take Tylenol or ibuprofen as needed for pain. Patient continue all medications. Patient to return to the ER if condition worsens, changes or new symptoms arise. Referrals: PRIMARY CARE, [Primary Care Provider] - 2-3 Days CHANTELLE JACKSON MD [Staff Physician] - 2-3 Days Time of Disposition: 04:01
== END 2020-05-06 04:46 | disposition home or self-care (01) ==
LOC: ED 01:14
DX: R07.9 Chest pain, unspecified (principal); I10 Essential (primary) hypertension; I25.2 Old myocardial infarction; Z98.890 Other specified postprocedural states; Z86.73 Personal history of transient ischemic attack (TIA), and cerebral infarction without residual deficits; Z79.899 Other long term (current) drug therapy
CPT/HCPCS: 36415; 71045; 80048; 84484; 85025; 93005

== ENCOUNTER 2020-05-15 23:29 | Emergency (ER) | payer MEDICAID ==
--- NOTE | 2020-05-16 01:33 | XRay Report ---
CHEST 1 VIEW 05/16/2020 12:25 AM INDICATION / CLINICAL INFORMATION: pain and cough. COMPARISON: 05/06/2020 FINDINGS: SUPPORT DEVICES: None. HEART / MEDIASTINUM: No significant abnormality. LUNGS / PLEURA: No significant pulmonary or pleural abnormality. No pneumothorax. ADDITIONAL FINDINGS: No significant additional findings. IMPRESSION: No acute abnormality. Signer Name: Vick Em MD Signed: 05/16/2020 1:28 AM Workstation Name: [id number]
[2020-05-16] MEDS ORDERED: LORazepam 2 MG/ML VIAL IV PRN (03:16)
[2020-05-16] MEDS ORDERED: chlordiazePOXIDE 25 MG CAP PO PRN ×2 (03:16)
[2020-05-16] MEDS ORDERED: DEXTROSE 50% IN WATER (25GM) 50 ML VIAL IV PRN (03:17)
--- NOTE | 2020-05-16 03:18 | Emergency Department Report ---
ED General Adult HPI - General Chief complaint: Chest Pain Stated complaint: CHEST PAIN;SOB;EAR RINGING PUI?: No Time Seen by Provider: 05/16/20 03:13 Source: patient, RN notes reviewed, old records reviewed Mode of arrival: Wheelchair Limitations: No Limitations, Physical Limitation, Other (Alcohol intoxication) - History of Present Illness Initial comments: The patient was evaluated in the emergency department for symptoms described in the history of present illness. He/she was evaluated in the context of the global COVID-19 pandemic, which necessitated consideration that the patient might be at risk for infection with the virus that causes COVID-19. Institutional protocols and algorithms that pertain to the evaluation of patients at risk for COVID-19 are in a state of rapid change based on information released by regulatory bodies including the CDC and federal and state organizations. These policies and algorithms were followed during the patient's care in the emergency department. Please note that these policies, procedures and recommendations changed on a rapid basis. Mr. Lemus is a frequent utilizer of this emergency room. He has a past medical history of alcoholism, and hypertension. He frequently presents to this emergency room with complaints of chest pain and alcohol intoxication. Today, he presents to the ER with his typical complaint of nontraumatic chest pain, and alcohol use. He is pleasant and cooperative, and is not homicidal suicidal. He reports constant chest wall pain, which does not radiate to the back, arms or neck. He denies vomiting or diaphoresis. The patient endorsed to nursing staff that he had tinnitus and ringing sounds in his ears. To me, he complained of nontraumatic left hand numbness. The patient is also asking to eat and drink. Patient is typically homeless and undomiciled, a poor historian and intoxicated, therefore, he has difficulty describing the qualitative nature of his symptoms, exacerbating factors, relieving factors, or aggravating fact ors. I have evaluated this patient in the past. His presentation today appears to be similar to prior presentations. -: Gradual Location: chest, right, upper extremity Radiation: other Quality: other Consistency: other Improves with: other Worsens with: other Associated Symptoms: other - Related Data Previous Rx's Medication Instructions Recorded Last Taken Type predniSONE [Deltasone] 40 mg PO QDAY #10 tab 10/12/19 Unknown Rx Esomeprazole Magnesium [NexIUM] 40 mg PO QDAY #30 capsule. 10/18/19 Unknown Rx Aspirin 325 mg PO QDAY #30 tablet 10/23/19 Unknown Rx Metoprolol [Lopressor TAB] 25 mg PO BID #60 tablet 10/23/19 Unknown Rx Aspirin 325 mg PO QDAY #30 tablet 05/16/20 Unknown Rx Folic Acid [Folvite] 1 mg PO QDAY #30 tablet 05/16/20 Unknown Rx Metoprolol [Lopressor TAB] 25 mg PO BID #60 tablet 05/16/20 Unknown Rx Multivitamin with Folic Acid [[facility]vs 400 mcg PO QDAY #30 tablet 05/16/20 Unknown Rx One Daily Essential Tablet] Pantoprazole [Protonix TAB] 40 mg PO QDAY #30 tablet 05/16/20 Unknown Rx Pravastatin [Pravachol] 20 mg PO QHS #30 tablet 05/16/20 Unknown Rx Thiamine [Vitamin B-1] 100 mg PO QDAY #30 tablet 05/16/20 Unknown Rx Allergies Allergy/AdvReac Type Severity Reaction Status Date / Time No Known Allergies Allergy Verified 01/03/20 13:39 ED Review of Systems ROS: Stated complaint: CHEST PAIN;SOB;EAR RINGING Other details as noted in HPI Comment: Unobtainable due to pts medical conditions (Patient acutely intoxicated) Cardiovascular: chest pain Neurological: other (Left hand numbness) ED Past Medical Hx - Past Medical History Previous Medical History?: Yes Hx Hypertension: Yes Hx CVA: Yes (left) Hx Heart Attack/AMI: Yes Hx Congestive Heart Failure: No Hx Diabetes: No Hx Asthma: No Hx COPD: No Hx HIV: No Additional medical history: chronic pain in back, neck and L knee, ETOH abuse. herniated disc - Surgical History Past Surgical History?: Yes Additional Surgical History: Left Knee. skin graft to right hand - Social History Smoking Status: Never Smoker Substance Use Type: None - Medications Home Medications: Home Medications Medication Instructions Recorded Confirmed Last Taken Type predniSONE [Deltasone] 40 mg PO QDAY #10 tab 10/12/19 Unknown Rx Esomeprazole Magnesium [NexIUM] 40 mg PO QDAY #30 capsule. 10/18/19 Unknown Rx Aspirin 325 mg PO QDAY #30 tablet 10/23/19 Unknown Rx Metoprolol [Lopressor TAB] 25 mg PO BID #60 tablet 10/23/19 Unknown Rx Aspirin 325 mg PO QDAY #30 tablet 05/16/20 Unknown Rx Folic Acid [Folvite] 1 mg PO QDAY #30 tablet 05/16/20 Unknown Rx Metoprolol [Lopressor TAB] 25 mg PO BID #60 tablet 05/16/20 Unknown Rx Multivitamin with Folic Acid [[facility]vs 400 mcg PO QDAY #30 tablet 05/16/20 Unknown Rx One Daily Essential Tablet] Pantoprazole [Protonix TAB] 40 mg PO QDAY #30 tablet 05/16/20 Unknown Rx Pravastatin [Pravachol] 20 mg PO QHS #30 tablet 05/16/20 Unknown Rx Thiamine [Vitamin B-1] 100 mg PO QDAY #30 tablet 05/16/20 Unknown Rx ED Physical Exam - General Limitations: Other (Intoxication) General appearance: appears intoxicated, obese - Head Head exam: Present: atraumatic, normocephalic - Eye Eye exam: Present: normal appearance, EOMI. Absent: nystagmus - ENT ENT exam: Present: normal exam, normal orophraynx, mucous membranes moist, TM's normal bilaterally, normal external ear exam, other (There is no mastoid tenderness.) - Neck Neck exam: Present: normal inspection, full ROM. Absent: tenderness, meningismus - Respiratory Respiratory exam: Present: normal lung sounds bilaterally. Absent: respiratory distress, wheezes, rales, rhonchi, stridor, decreased breath sounds - Cardiovascular Cardiovascular Exam: Present: regular rate, normal rhythm, normal heart sounds. Absent: bradycardia, tachycardia, irregular rhythm, systolic murmur, diastolic murmur, rubs, gallop - GI/Abdominal GI/Abdominal exam: Present: soft. Absent: distended, tenderness, guarding, rebound, rigid, pulsatile mass - Rectal Rectal exam: Present: deferred - Extremities Exam Extremities exam: Present: normal inspection, full ROM, other (2+ pulses noted in the bilateral upper and lower extremities. There is no palpable cord. negative Homans sign. Muscular compartments are soft. The pelvis is stable.). Absent: pedal edema, calf tenderness - Back Exam Back exam: Present: normal inspection, full ROM. Absent: tenderness, CVA tenderness (R), CVA tenderness (L), paraspinal tenderness, vertebral tenderness - Neurological Exam Neurological exam: Present: alert, other (No facial droop. Tongue midline. Extraocular movements intact bilaterally. Facial sensation intact to light touch in V1, V2, V3 distribution bilaterally. 5 and a 5 strength in 4 extremities. Sensation intact to light touch in 4 extremities.) - Psychiatric Psychiatric exam: Present: normal affect, normal mood. Absent: homicidal ideation, suicidal ideation - Skin Skin exam: Present: warm, dry, intact, normal color. Absent: rash ED Course Vital Signs 05/16/20 05/16/20 05/16/20 00:22 03:45 03:54 Temperature 98.3 F Pulse Rate 104 H 98 H Respiratory 18 18 Rate Blood Pressure 123/91 Blood Pressure 121/86 [Right] O2 Sat by Pulse 99 99 Oximetry O2 Sat by Pulse 99 Oximetry [ Digit-Finger] - Reevaluation(s) Reevaluation #1: 05/16/20 03:47 Differential diagnosis, including but not limited to: Alcohol intoxication, alcohol dependence, electrolyte derangement, GERD, gastritis, hiatal hernia, pneumonia, neuropathy, intracranial lesion Assessment and plan: 59-year-old gentleman who is a frequent utilizer and abuser of this emergency room, who presents with his typical constellation of complaints, chest pain, and alcohol intoxication. Motor examination nonfocal. There is no history of trauma. Physical examination not suggestive of blunt trauma to the head and/or neck. Obtain noncontrast CT scan of the brain given documentation of tinnitus, and complaint of left hand numbness which I do not elicit on my examination. Obtain appropriate laboratory studies, x-ray of the chest. Reassess after initial data points. Patient's age and cardiovascular risk factor profile reviewed and appreciated. Patient had a cardiac catheterization at this hospital October 2019, which showed ejection fraction 40 to 50%, borderline left ventricular enlargement, mild coronary lesions, medical therapy was recommended with aspirin, beta-blockers, statins. Patient is supposed to follow-up with outpatient cardiology in 7 days. Given that patient had a catheterization within the past year, the EKG is unchanged from prior, do not see indication to repeat admission, as a stress fareed t is unlikely to add to this patient's management. 05/16/20 03:51 Reevaluation #2: 05/16/20 05:35 Laboratory studies reviewed and appreciated. Noncontrast CT scan of the brain negative for acute findings. Patient resting comfortably at this time in stretcher, and in no acute distress. Repeat troponin, repeat EKG pending. Care will be transferred to the oncoming ER physician, Dr. Schumacher, to follow-up on repeat EKG, repeat troponin, and discharged when clinically sober. - Pulse Oximetry Interpretation Digit-Finger Initial Pulse Oximetry Readin O2 Sat by Pulse Oximetry: 99 Actions Taken: none ED Medical Decision Making - Lab Data Result diagrams: 05/16/20 03:32 05/16/20 03:32 Vital Signs 05/16/20 00:22 Temperature 98.3 F Pulse Rate 104 H Respiratory 18 Rate Blood Pressure 123/91 O2 Sat by Pulse 99 Oximetry Lab Results 05/16/20 Range/Units 03:32 Hgb 13.0 (11.8-15.2) gm/dl Hct 38.3 (35.5-45.6) % Plt Count 120 L (140-440) K/mm3 Vital Signs 05/16/20 05/16/20 05/16/20 00:22 03:45 03:52 Temperature 98.3 F Pulse Rate 104 H 98 H Respiratory 18 18 Rate Blood Pressure 123/91 Blood Pressure 121/86 [Right] O2 Sat by Pulse 99 99 Oximetry O2 Sat by Pulse 99 Oximetry [ Digit-Finger] Lab Results 05/16/20 05/16/20 05/16/20 Range/Units 03:32 03:32 03:32 Hgb 13.0 (11.8-15.2) gm/dl Hct 38.3 (35.5-45.6) % Plt Count 120 L (140-440) K/mm3 Sodium 135 L (137-145) mmol/L Potassium 3.7 (3.6-5.0) mmol/L Chloride 97.2 L (98-107) mmol/L Carbon Dioxide 25 (22-30) mmol/L Anion Gap 17 mmol/L BUN 6 L (9-20) mg/dL Creatinine 0.7 L (0.8-1.3) mg/dL Estimated GFR > 60 ml/min BUN/Creatinine Ratio 9 % Glucose 109 H (75-100) mg/dL Calcium 8.8 (8.4-10.2) mg/dL Magnesium 2.10 (1.7-2.3) mg/dL Total Creatine Kinase 228 H (55-170) units/L Troponin T (0.00-0.029) ng/mL Salicylates < 0.3 L (2.8-20.0) mg/dL Acetaminophen (10.0-30.0) ug/mL Plasma/Serum Alcohol (0-0.07) % 05/16/20 05/16/20 05/16/20 Range/Units 03:32 03:32 Unknown Hgb (11.8-15.2) gm/dl Hct (35.5-45.6) % Plt Count (140-440) K/mm3 Sodium (137-145) mmol/L Potassium (3.6-5.0) mmol/L Chloride (98-107) mmol/L Carbon Dioxide (22-30) mmol/L Anion Gap mmol/L BUN (9-20) mg/dL Creatinine (0.8-1.3) mg/dL Estimated GFR ml/min BUN/Creatinine Ratio % Glucose (75-100) mg/dL Calcium (8.4-10.2) mg/dL Magnesium (1.7-2.3) mg/dL Total Creatine Kinase (55-170) units/L Troponin T < 0.010 (0.00-0.029) ng/mL Salicylates (2.8-20.0) mg/dL Acetaminophen 5.0 L (10.0-30.0) ug/mL Plasma/Serum Alcohol 0.16 H (0-0.07) % - EKG Data -: EKG Interpreted by Hi EKG shows normal: sinus rhythm Rate: normal - EKG Data When compared to previous EKG there are: no significant change 05/16/20 03:48 Time of interpretation, 3: 13 a.m. Sinus rhythm, 99 bpm. Normal axis, QTC 464 ms, RI interval 205 ms, left ventricular hypertrophy, and motion artifact. This is an abnormal EKG. This is not a STEMI. Unchanged from prior EKG from April 2020. - Radiology Data Radiology results: pending, report reviewed, image reviewed CHEST 1 VIEW 05/16/2020 12:25 AM INDICATION / CLINICAL INFORMATION: pain and cough. COMPARISON: 05/06/2020 FINDINGS: SUPPORT DEVICES: None. HEART / MEDIASTINUM: No significant abnormality. LUNGS / PLEURA: No significant pulmonary or pleural abnormality. No pneumothorax. ADDITIONAL FINDINGS: No significant additional findings. IMPRESSION: No acute abnormality. Signer Name: Vick Em MD Signed: 05/16/2020 12:28 AM Workstation Name: [email or web address] [id number] Noncontrast [address] scan of the brain is negative for acute findings Critical care attestation.: If time is entered above; I have spent that time in minutes in the direct care of this critically ill patient, excluding procedure time. ED Disposition Clinical Impression: Alcoholism, ETOH abuse, Chest pain, History of numbness Is pt being admited?: No Does the pt Need Aspirin: No Condition: Good Instructions: Chest Pain (ED) Additional Instructions: Recommend that patient discontinue alcohol consumption. Recommend that patient follow-up with her primary care doctor within the next week. Recommend the patient follow-up with his senior wealth advisor within the next week. Long-term consumption of alcohol may cause addiction, disability, , paralysis, loss of quality of life. Please return to the emergency room right away with new pain, worsening pain, migration of pain, projectile vomiting, change in mental status, confusion, inability to tolerate liquid feeds, new, worsened or different symptoms not present on the initial emergency room evaluation Noncompliance with medications, not following up with the outpatient primary care doctor and/or senior wealth advisor may result in worsening of chronic medical conditions, which may predispose the patient to , disability, paralysis, loss of quality of life. Recommend that patient not drive or operate motor vehicles for 6 months, or until cleared to do so by her primary care doctor Referrals: MATHEW REAVES MD [Staff Physician] - 3-5 Days SHANNON HORTA MD [Staff Physician] - 3-5 Days Heart Score - HEART Score History: Slightly suspicious EKG: Non-specific Age: 45-65 Risk factors: 1-2 risk factors Troponin: < normal limit HEART Score: 3 - Critical Actions Critical Actions: 0-3 pts:0.9-1.7%risk of adverse cardiac event.Candidate for discharge
[2020-05-16 03:50] LABS: Hematocrit 38.3 % (35.5-45.6)
[2020-05-16] MEDS ORDERED: DEXTROSE 50% IN WATER (25GM) 50 ML SYRINGE IV PRN (04:00)
[2020-05-16 04:12] LABS: Blood Urea Nitrogen 6 mg/dL (9-20); Calcium 8.8 mg/dL (8.4-10.2); Hemolysis Index 2
[2020-05-16 04:30] LABS: BUN/Creatinine Ratio 9
--- NOTE | 2020-05-16 04:42 | Cat Scan Report ---
CT head without contrast INDICATION : E.T.O.H. abuse, ears ringing, LEFT hand is numb. TECHNIQUE: Axial imaging performed from the skull apex through the skull base without the use of con trast. All CT scans at this location are performed using CT dose reduction for ALARA by means of aut omated exposure control. COMPARISON: 10/30/2018. FINDINGS: Parenchyma: No acute intracranial hemorrhage or parenchymal abnormality. Ventricles: Ventricles are normal in size and appear symmetric. Soft tissues: Soft tissues including the orbits appear normal. Bones: Chronic nasal deformity. Sinuses: Sinuses and mastoid air cells are clear. IMPRESSION: No acute abnormality. Signer Name: Vick Em MD Signed: 05/16/2020 4:38 AM Workstation Name: [id number]
[2020-05-16 06:45] VITALS: BP 126/89
[2020-05-16] MEDS ORDERED: PANTOPRAZOLE 40 MG TAB PO SCH (10:00)
[2020-05-16] MEDS ORDERED: METOPROLOL TARTRATE 25 MG TAB PO SCH (10:00)
[2020-05-16] MEDS ORDERED: FOLIC ACID 1 MG TAB PO SCH (10:00)
[2020-05-16] MEDS ORDERED: ASPIRIN 325 MG TAB PO SCH (10:00)
[2020-05-16] MEDS ORDERED: THIAMINE 100 MG TAB PO SCH (10:00)
[2020-05-16] MEDS ORDERED: PRAVASTATIN 20 MG TAB PO SCH (22:00)
== END 2020-05-16 06:50 | disposition home or self-care (01) ==
LOC: ED 23:29
DX: F10.10 Alcohol abuse, uncomplicated (principal); R07.89 Other chest pain; R20.0 Anesthesia of skin; H93.13 Tinnitus, bilateral; I10 Essential (primary) hypertension; I25.2 Old myocardial infarction; Z98.890 Other specified postprocedural states; Z79.899 Other long term (current) drug therapy
CPT/HCPCS: 36415; 70450; 71045; 80048; 80320; 82550; 83735; 84484; 85014; 85018; 85049; 93005; G0480

== ENCOUNTER 2020-05-31 00:23 | Emergency (ER) | payer MEDICAID ==
[2020-05-31] MEDS ORDERED: ASPIRIN 325 MG TAB PO ONE (00:37)
[2020-05-31 00:59] LABS: Hematocrit 38.2 % (35.5-45.6); Hemoglobin 12.9 gm/dl (11.8-15.2); Mean Corpuscular HGB Conc 34 % (32-34); Mean Corpuscular Volume 88 fl (84-94); Red Blood Count 4.35 M/mm3 (3.65-5.03); Red Cell Distribution Width 16.1 % (13.2-15.2)
--- NOTE | 2020-05-31 01:14 | XRay Report ---
CHEST 1 VIEW 05/30/2020 11:58 PM INDICATION / CLINICAL INFORMATION: chest pain. Shortness of breath COMPARISON: 05/16/2020 FINDINGS: SUPPORT DEVICES: None. HEART / MEDIASTINUM: No significant abnormality. LUNGS / PLEURA: No significant pulmonary or pleural abnormality. No pneumothorax. ADDITIONAL FINDINGS: No significant additional findings. IMPRESSION: 1. No acute findings. Signer Name: Inderjit Montero MD Signed: 05/31/2020 1:10 AM Workstation Name: [email or web address]
[2020-05-31 01:16] LABS: Alanine Aminotransferase 30 units/L (7-56); Albumin 4.4 g/dL (3.9-5); Blood Urea Nitrogen 6 mg/dL (9-20); Calcium 8.3 mg/dL (8.4-10.2); Hemolysis Index 23
[2020-05-31 01:17] LABS: BUN/Creatinine Ratio 10
[2020-05-31 01:28] LABS: Platelet Count 67 K/mm3 (140-440)
[2020-05-31] MEDS ORDERED: DEXTROSE 50% IN WATER (25GM) 50 ML SYRINGE IV PRN (01:44)
[2020-05-31] MEDS ORDERED: chlordiazePOXIDE 25 MG CAP PO PRN ×2 (01:44)
[2020-05-31] MEDS ORDERED: LORazepam 2 MG TAB PO PRN ×2 (01:44)
[2020-05-31] MEDS ORDERED: LORazepam 2 MG/ML VIAL IV PRN (01:44)
--- NOTE | 2020-05-31 01:46 | Emergency Department Report ---
ED General Adult HPI - General Chief complaint: Alcohol Stated complaint: My chest hurts, my arm is tingling PUI?: No Time Seen by Provider: 05/31/20 01:36 Source: patient, RN notes reviewed, old records reviewed Mode of arrival: Wheelchair Limitations: Other (Patient is intoxicated) - History of Present Illness Initial comments: The patient was evaluated in the emergency department for symptoms described in the history of present illness. He/she was evaluated in the context of the global COVID-19 pandemic, which necessitated consideration that the patient might be at risk for infection with the virus that causes COVID-19. Institutional protocols and algorithms that pertain to the evaluation of patients at risk for COVID-19 are in a state of rapid change based on information released by regulatory bodies including the CDC and federal and state organizations. These policies and algorithms were followed during the ashok stovall's care in the emergency department. Please note that these policies, procedures and recommendations changed on a rapid basis. Past medical history: Homelessness, alcoholism, neuropathy, hypertension, high cholesterol Objective diagnostic testing at this hospital Cardiac catheterization, October 2019: Ejection fraction 40 to 50%. Left coronary artery is diffusely irregular. No remarkable lesions. Right coronary artery, diffuse mild intimal irregularities, distal branch, just past the takeoff of PDA, contains 50% stenosis. Mild coronary lesions, recommended for medical therapy with aspirin, beta-blockers, and statins. Mild dilated cardiomyopathy. CT scan of the chest, in September 2019, December 2017, August 2017: Negative for acute finding/pulmonary embolism. DVT study, August 2017x2, October 2017: Negative for DVT This is a 59-year-old gentleman. I am familiar with this patient. The patient is a frequent utilizer in abuser of this emergency room. He is unfortunately homeless, is an alcoholic, and has poor outpatient social resources. He is currently intoxicated, and presents to the ER today with his typical constellation of complaints, including left-sided chest pain which has been present for over 24 hours, which she indicates does not radiate to the back, arms or neck, denies vomiting diaphoresis and new/different exertional shortness of breath, also complaining of chronic left forearm and left hand numbness and tingling, refractory to his outpatient gabapentin. The patient is intoxicated. He does not think he fell. He is not homicidal or suicidal. He denies neck pain. He denies abdominal pain. The patient states his bilateral lower extremities "feel fine." He also endorses chronic ringing sensation in his ears. He states "you would not believe what I had to do to get here." Patient is not currently accompanied by friends or family at this time for additional information/collateral information. He is currently intoxicated, and therefore, has some difficulty describing the qualitative nature of his symptoms, exacerbating factors, relieving factors, and aggravating factors. -: unknown Location: chest, left, upper extremity Radiation: other Quality: other Consistency: other Improves with: other Worsens with: other Associated Symptoms: other - Related Data Previous Rx's Medication Instructions Recorded Last Taken Type predniSONE [Deltasone] 40 mg PO QDAY #10 tab 10/12/19 Unknown Rx Esomeprazole Magnesium [NexIUM] 40 mg PO QDAY #30 capsule. 10/18/19 Unknown Rx Aspirin 325 mg PO QDAY #30 tablet 10/23/19 Unknown Rx Metoprolol [Lopressor TAB] 25 mg PO BID #60 tablet 10/23/19 Unknown Rx Aspirin 325 mg PO QDAY #30 tablet 05/16/20 Unknown Rx Folic Acid [Folvite] 1 mg PO QDAY #30 tablet 05/16/20 Unknown Rx Metoprolol [Lopressor TAB] 25 mg PO BID #60 tablet 05/16/20 Unknown Rx Multivitamin with Folic Acid [[facility] 400 mcg PO QDAY #30 tablet 05/16/20 Unknown Rx One Daily Essential Tablet] Pantoprazole [Protonix TAB] 40 mg PO QDAY #30 tablet 05/16/20 Unknown Rx Pravastatin [Pravachol] 20 mg PO QHS #30 tablet 05/16/20 Unknown Rx Thiamine [Vitamin B-1] 100 mg PO QDAY #30 tablet 05/16/20 Unknown Rx Allergies Allergy/AdvReac Type Severity Reaction Status Date / Time No Known Allergies Allergy Verified 05/31/20 00:31 ED Review of Systems ROS: Stated complaint: SOB Other details as noted in HPI Comment: Unobtainable due to pts medical conditions (Patient is currently intoxicated) Constitutional: malaise Cardiovascular: chest pain Neurological: paresthesias ED Past Medical Hx - Past Medical History Hx Hypertension: Yes Hx CVA: Yes (left) Hx Heart Attack/AMI: Yes Hx Congestive Heart Failure: No Hx Diabetes: No Hx Asthma: No Hx COPD: No Hx HIV: No Additional medical history: chronic pain in back, neck and L knee, ETOH abuse. herniated disc - Surgical History Additional Surgical History: Left Knee. skin graft to right hand - Social History Smoking Status: Current Some Day Smoker Substance Use Type: Alcohol - Medications Home Medications: Home Medications Medication Instructions Recorded Confirmed Last Taken Type predniSONE [Deltasone] 40 mg PO QDAY #10 tab 10/12/19 Unknown Rx Esomeprazole Magnesium [NexIUM] 40 mg PO QDAY #30 capsule. 10/18/19 Unknown Rx Aspirin 325 mg PO QDAY #30 tablet 10/23/19 Unknown Rx Metoprolol [Lopressor TAB] 25 mg PO BID #60 tablet 10/23/19 Unknown Rx Aspirin 325 mg PO QDAY #30 tablet 05/16/20 Unknown Rx Folic Acid [Folvite] 1 mg PO QDAY #30 tablet 05/16/20 Unknown Rx Metoprolol [Lopressor TAB] 25 mg PO BID #60 tablet 05/16/20 Unknown Rx Multivitamin with Folic Acid [[facility] 400 mcg PO QDAY #30 tablet 05/16/20 Unknown Rx One Daily Essential Tablet] Pantoprazole [Protonix TAB] 40 mg PO QDAY #30 tablet 05/16/20 Unknown Rx Pravastatin [Pravachol] 20 mg PO QHS #30 tablet 05/16/20 Unknown Rx Thiamine [Vitamin B-1] 100 mg PO QDAY #30 tablet 05/16/20 Unknown Rx ED Physical Exam - General Limitations: Other (Alcohol intoxication) General appearance: appears intoxicated, anxious - Head Head exam: Present: atraumatic, normocephalic - Eye Eye exam: Present: normal appearance, EOMI. Absent: nystagmus - ENT ENT exam: Present: normal exam, normal orophraynx, mucous membranes moist, normal external ear exam - Neck Neck exam: Present: normal inspection, full ROM. Absent: tenderness, meningismus - Respiratory Respiratory exam: Present: normal lung sounds bilaterally. Absent: respiratory distress, wheezes, rales, rhonchi, stridor, decreased breath sounds - Cardiovascular Cardiovascular Exam: Present: regular rate, normal rhythm, normal heart sounds. Absent: bradycardia, tachycardia, irregular rhythm, systolic murmur, diastolic murmur, rubs, gallop - GI/Abdominal GI/Abdominal exam: Present: soft. Absent: distended, tenderness, guarding, rebound, rigid, pulsatile mass - Rectal Rectal exam: Present: deferred - Extremities Exam Extremities exam: Present: normal inspection, pedal edema (1+ edema in the bilateral lower extremities), other (2+ pulses noted in the bilateral upper and lower extremities. There is no palpable cord. negative Homans sign. Muscular compartments are soft. The pelvis is stable.). Absent: calf tenderness - Back Exam Back exam: Present: normal inspection, full ROM. Absent: tenderness, CVA tenderness (R), paraspinal tenderness, vertebral tenderness - Neurological Exam Neurological exam: Present: other (No facial droop. Tongue midline. Extraocular movements intact bilaterally. Facial sensation intact to light touch in V1, V2, V3 distribution bilaterally. 5 and a 5 strength in 4 extremities. Sensation intact to light touch in 4 extremities.) - Psychiatric Psychiatric exam: Present: anxious. Absent: homicidal ideation, suicidal ideation - Skin Skin exam: Present: warm, dry, intact, normal color. Absent: rash ED Course Vital Signs 05/31/20 05/31/20 05/31/20 00:32 01:40 02:42 Temperature 97.9 F Pulse Rate 115 H Respiratory 18 18 Rate Blood Pressure 118/80 117/78 Blood Pressure [Right] O2 Sat by Pulse 100 100 Oximetry 05/31/20 05/31/20 05/31/20 02:43 06:17 06:19 Temperature Pulse Rate 93 H Respiratory 12 Rate Blood Pressure 117/78 126/83 126/83 Blood Pressure [Right] O2 Sat by Pulse 94 94 Oximetry 05/31/20 05/31/20 05/31/20 06:21 06:23 06:25 Temperature Pulse Rate Respiratory Rate Blood Pressure 126/83 126/83 126/83 Blood Pressure [Right] O2 Sat by Pulse 95 96 97 Oximetry 05/31/20 05/31/20 05/31/20 06:27 06:29 06:31 Temperature Pulse Rate Respiratory Rate Blood Pressure 126/83 126/83 126/83 Blood Pressure [Right] O2 Sat by Pulse 91 92 95 Oximetry 05/31/20 05/31/20 05/31/20 06:33 06:35 06:36 Temperature Pulse Rate Respiratory Rate Blood Pressure 128/93 128/93 128/93 Blood Pressure [Right] O2 Sat by Pulse 91 93 92 Oximetry 05/31/20 05/31/2021 06:37 06:38 06:39 Temperature Pulse Rate Respiratory Rate Blood Pressure 128/93 128/93 128/93 Blood Pressure [Right] O2 Sat by Pulse 86 100 87 Oximetry 05/31/20 05/31/20 05/31/20 06:41 06:43 06:45 Temperature Pulse Rate Respiratory Rate Blood Pressure 128/93 128/93 128/93 Blood Pressure [Right] O2 Sat by Pulse 96 95 95 Oximetry 05/31/20 05/31/20 05/31/20 06:47 06:49 06:51 Temperature Pulse Rate Respiratory Rate Blood Pressure 128/93 128/93 128/93 Blood Pressure [Right] O2 Sat by Pulse 95 96 97 Oximetry 05/31/20 05/31/20 05/31/20 06:53 06:55 06:57 Temperature Pulse Rate Respiratory Rate Blood Pressure 128/93 128/93 128/93 Blood Pressure [Right] O2 Sat by Pulse 96 88 81 L Oximetry 05/31/20 05/31/20 05/31/20 06:59 07:01 07:03 Temperature Pulse Rate Respiratory Rate Blood Pressure 128/93 128/93 90/53 Blood Pressure [Right] O2 Sat by Pulse 70 L 65 L 75 L Oximetry 05/31/20 05/31/20 05/31/20 07:05 07:07 07:09 Temperature Pulse Rate Respiratory Rate Blood Pressure 128/93 128/93 128/93 Blood Pressure [Right] O2 Sat by Pulse 71 L 67 L 70 L Oximetry 05/31/20 05/31/20 05/31/20 07:11 07:13 07:15 Temperature Pulse Rate Respiratory Rate Blood Pressure 128/93 128/93 128/93 Blood Pressure [Right] O2 Sat by Pulse 61 L 93 94 Oximetry 05/31/20 05/31/20 05/31/20 07:17 07:19 07:21 Temperature Pulse Rate Respiratory Rate Blood Pressure 128/93 128/93 128/93 Blood Pressure [Right] O2 Sat by Pulse 96 91 89 Oximetry 05/31/20 05/31/20 05/31/20 07:23 07:25 07:27 Temperature Pulse Rate Respiratory Rate Blood Pressure 128/93 128/93 128/93 Blood Pressure [Right] O2 Sat by Pulse 89 95 98 Oximetry 05/31/20 05/31/20 05/31/20 07:29 07:31 07:33 Temperature Pulse Rate Respiratory Rate Blood Pressure 128/93 128/93 107/69 Blood Pressure [Right] O2 Sat by Pulse 91 88 91 Oximetry 05/31/20 05/31/20 05/31/20 07:35 07:37 07:39 Temperature Pulse Rate Respiratory Rate Blood Pressure 107/69 107/69 107/69 Blood Pressure [Right] O2 Sat by Pulse 96 92 92 Oximetry 05/31/20 07:44 Temperature Pulse Rate 68 Respiratory 15 Rate Blood Pressure Blood Pressure 108/65 [Right] O2 Sat by Pulse 98 Oximetry - Reevaluation(s) Reevaluation #1: 05/31/20 03:00 CT scan of the brain, x-ray of the chest unremarkable. Laboratory studies fairly unremarkable, with exception of elevated blood alcohol level, and other chronic nonemergent findings. Patient does not appear to have an emergent medical condition at this time which would require admission or hospitalization. Holding orders initiated, Accu- Chek as needed initiated, alcohol withdrawal protocol initiated, and we will continue the patient's prior medications. Patient will be held in this emergen cy room pending clinical sobriety, and discharge once clinically sober. This is consistent with the patient's multiple prior presentations. He does not appear to be acutely decompensated at this time. Reevaluation #2: 05/31/20 05:05 Patient resting comfortably in stretcher, no acute distress. Care will be transferred to the oncoming ER physician, Dr Fabricio Rutherford, to reassess, and discharge when clinically sober. 06/02/20 06:08 ED Medical Decision Making - Lab Data Result diagrams: 05/31/20 00:41 05/31/20 00:41 Vital Signs 05/31/20 00:32 Temperature 97.9 F Pulse Rate 115 H Respiratory 18 Rate Blood Pressure 118/80 O2 Sat by Pulse 100 Oximetry Lab Results 05/31/20 05/31/20 05/31/20 Range/Units 00:41 00:41 00:46 WBC 3.5 L (4.5-11.0) K/mm3 RBC 4.35 (3.65-5.03) M/mm3 Hgb 12.9 (11.8-15.2) gm/dl Hct 38.2 (35.5-45.6) % MCV 88 (84-94) fl MCH 30 (28-32) pg MCHC 34 (32-34) % RDW 16.1 H (13.2-15.2) % Plt Count 67 L (140-440) K/mm3 Lymph % (Auto) [employer] Seg Neutrophils % [employer] Sodium 131 L (137-145) mmol/L Potassium 4.1 (3.6-5.0) mmol/L Chloride 96.4 L (98-107) mmol/L Carbon Dioxide 20 L (22-30) mmol/L Anion Gap 19 mmol/L BUN 6 L (9-20) mg/dL Creatinine 0.6 L (0.8-1.3) mg/dL Estimated GFR > 60 ml/min BUN/Creatinine Ratio 10 % Glucose 154 H (75-100) mg/dL Calcium 8.3 L (8.4-10.2) mg/dL Total Bilirubin 0.50 (0.1-1.2) mg/dL AST 90 H (5-40) units/L ALT 30 (7-56) units/L Alkaline Phosphatase 141 H (35-129) units/L Troponin T < 0.010 (0.00-0.029) ng/mL Total Protein 6.9 (6.3-8.2) g/dL Albumin 4.4 (3.9-5) g/dL Albumin/Globulin Ratio 1.8 % Vital Signs 05/31/20 05/31/20 05/31/20 00:32 02:42 02:43 Temperature 97.9 F Pulse Rate 115 H 93 H Respiratory 18 12 Rate Blood Pressure 118/80 117/78 117/78 O2 Sat by Pulse 100 Oximetry Lab Results 05/31/20 05/31/20 05/31/20 Range/Units 00:41 00:41 00:46 WBC 3.5 L (4.5-11.0) K/mm3 RBC 4.35 (3.65-5.03) M/mm3 Hgb 12.9 (11.8-15.2) gm/dl Hct 38.2 (35.5-45.6) % MCV 88 (84-94) fl MCH 30 (28-32) pg MCHC 34 (32-34) % RDW 16.1 H (13.2-15.2) % Plt Count 67 L (140-440) K/mm3 Lymph % (Auto) [employer] Add Manual Diff Complete Total Counted 100 Seg Neutrophils % [employer] Seg Neuts % (Manual) 32.0 L (40.0-70.0) % Lymphocytes % (Manual) 50.0 H (13.4-35.0) % Monocytes % (Manual) 13.0 H (0.0-7.3) % Eosinophils % (Manual) 4.0 (0.0-4.3) % Basophils % (Manual) 1.0 (0.0-1.8) % Nucleated RBC % Not Reportable Seg Neutrophils # Man 1.1 L (1.8-7.7) K/mm3 Band Neutrophils # 0.0 K/mm3 Lymphocytes # (Manual) 1.8 (1.2-5.4) K/mm3 Abs React Lymphs (Man) 0.0 K/mm3 Monocytes # (Manual) 0.5 (0.0-0.8) K/mm3 Eosinophils # (Manual) 0.1 (0.0-0.4) K/mm3 Basophils # (Manual) 0.0 (0.0-0.1) K/mm3 Metamyelocytes # 0.0 K/mm3 Myelocytes # 0.0 K/mm3 Promyelocytes # 0.0 K/mm3 Blast Cells # 0.0 K/mm3 WBC Morphology Not Reportable Hypersegmented Neuts Not Reportable Hyposegmented Neuts Not Reportable Hypogranular Neuts Not Reportable Smudge Cells Not Reportable Toxic Granulation Not Reportable Toxic Vacuolation Not Reportable Dohle Bodies Not Reportable Pelger-Huet Anomaly Not Reportable Katie Rods Not Reportable Platelet Estimate Not Reportable Clumped Platelets Not Reportable Plt Clumps, EDTA Not Reportable Large Platelets Not Reportable Giant Platelets Not Reportable Platelet Satelliting Not Reportable Plt Morphology Comment Not Reportable RBC Morphology Not Reportable Dimorphic RBCs Not Reportable Polychromasia Not Reportable Hypochromasia Not Reportable Poikilocytosis Not Reportable Anisocytosis Rare Microcytosis Rare Macrocytosis Not Reportable Spherocytes Not Reportable Pappenheimer Bodies Not Reportable Sickle Cells Not Reportable Target Cells Not Reportable Tear Drop Cells Not Reportable Ovalocytes Not Reportable Helmet Cells Not Reportable Torres-Lutcher Bodies Not Reportable [place] Rings Not Reportable Lisa Cells Not Reportable Bite Cells Not Reportable Crenated Cell Not Reportable Elliptocytes Not Reportable Acanthocytes (Spur) Not Reportable Rouleaux Not Reportable Hemoglobin C Crystals Not Reportable Schistocytes Not Reportable Malaria parasites Not Reportable Connor Bodies Not Reportable Hem Pathologist Commnt No Sodium 131 L (137-145) mmol/L Potassium 4.1 (3.6-5.0) mmol/L Chloride 96.4 L (98-107) mmol/L Carbon Dioxide 20 L (22-30) mmol/L Anion Gap 19 mmol/L BUN 6 L (9-20) mg/dL Creatinine 0.6 L (0.8-1.3) mg/dL Estimated GFR > 60 ml/min BUN/Creatinine Ratio 10 % Glucose 154 H (75-100) mg/dL Calcium 8.3 L (8.4-10.2) mg/dL Magnesium (1.7-2.3) mg/dL Total Bilirubin 0.50 (0.1-1.2) mg/dL AST 90 H (5-40) units/L ALT 30 (7-56) units/L Alkaline Phosphatase 141 H (35-129) units/L Total Creatine Kinase (55-170) units/L Troponin T < 0.010 (0.00-0.029) ng/mL Total Protein 6.9 (6.3-8.2) g/dL Albumin 4.4 (3.9-5) g/dL Albumin/Globulin Ratio 1.8 % Salicylates (2.8-20.0) mg/dL Acetaminophen (10.0-30.0) ug/mL Plasma/Serum Alcohol (0-0.07) % 05/31/20 05/31/20 05/31/20 Range/Units 01:28 01:28 01:28 WBC (4.5-11.0) K/mm3 RBC (3.65-5.03) M/mm3 Hgb (11.8-15.2) gm/dl Hct (35.5-45.6) % MCV (84-94) fl MCH (28-32) pg MCHC (32-34) % RDW (13.2-15.2) % Plt Count (140-440) K/mm3 Lymph % (Auto) Add Manual Diff Total Counted Seg Neutrophils % Seg Neuts % (Manual) (40.0-70.0) % Lymphocytes % (Manual) (13.4-35.0) % Monocytes % (Manual) (0.0-7.3) % Eosinophils % (Manual) (0.0-4.3) % Basophils % (Manual) (0.0-1.8) % Nucleated RBC % Seg Neutrophils # Man (1.8-7.7) K/mm3 Band Neutrophils # K/mm3 Lymphocytes # (Manual) (1.2-5.4) K/mm3 Abs React Lymphs (Man) K/mm3 Monocytes # (Manual) (0.0-0.8) K/mm3 Eosinophils # (Manual) (0.0-0.4) K/mm3 Basophils # (Manual) (0.0-0.1) K/mm3 Metamyelocytes # K/mm3 Myelocytes # K/mm3 Promyelocytes # K/mm3 Blast Cells # K/mm3 WBC Morphology Hypersegmented Neuts Hyposegmented Neuts Hypogranular Neuts Smudge Cells Toxic Granulation Toxic Vacuolation Dohle Bodies Pelger-Huet Anomaly Katie Rods Platelet Estimate Clumped Platelets Plt Clumps, EDTA Large Platelets Giant Platelets Platelet Satelliting Plt Morphology Comment RBC Morphology Dimorphic RBCs Polychromasia Hypochromasia Poikilocytosis Anisocytosis Microcytosis Macrocytosis Spherocytes Pappenheimer Bodies Sickle Cells Target Cells Tear Drop Cells Ovalocytes Helmet Cells Torres-Lutcher Bodies [place] Rings Lisa Cells Bite Cells Crenated Cell Elliptocytes Acanthocytes (Spur) Rouleaux Hemoglobin C Crystals Schistocytes Malaria parasites Connor Bodies Hem Pathologist Commnt Sodium (137-145) mmol/L Potassium (3.6-5.0) mmol/L Chloride (98-107) mmol/L Carbon Dioxide (22-30) mmol/L Anion Gap mmol/L BUN (9-20) mg/dL Creatinine (0.8-1.3) mg/dL Estimated GFR ml/min BUN/Creatinine Ratio % Glucose (75-100) mg/dL Calcium (8.4-10.2) mg/dL Magnesium 2.20 (1.7-2.3) mg/dL Total Bilirubin (0.1-1.2) mg/dL AST (5-40) units/L ALT (7-56) units/L Alkaline Phosphatase (35-129) units/L Total Creatine Kinase 248 H (55-170) units/L Troponin T (0.00-0.029) ng/mL Total Protein (6.3-8.2) g/dL Albumin (3.9-5) g/dL Albumin/Globulin Ratio % Salicylates < 0.3 L (2.8-20.0) mg/dL Acetaminophen 5.0 L (10.0-30.0) ug/mL Plasma/Serum Alcohol (0-0.07) % 05/31/20 Range/Units 01:28 WBC (4.5-11.0) K/mm3 RBC (3.65-5.03) M/mm3 Hgb (11.8-15.2) gm/dl Hct (35.5-45.6) % MCV (84-94) fl MCH (28-32) pg MCHC (32-34) % RDW (13.2-15.2) % Plt Count (140-440) K/mm3 Lymph % (Auto) Add Manual Diff Total Counted Seg Neutrophils % Seg Neuts % (Manual) (40.0-70.0) % Lymphocytes % (Manual) (13.4-35.0) % Monocytes % (Manual) (0.0-7.3) % Eosinophils % (Manual) (0.0-4.3) % Basophils % (Manual) (0.0-1.8) % Nucleated RBC % Seg Neutrophils # Man (1.8-7.7) K/mm3 Band Neutrophils # K/mm3 Lymphocytes # (Manual) (1.2-5.4) K/mm3 Abs React Lymphs (Man) K/mm3 Monocytes # (Manual) (0.0-0.8) K/mm3 Eosinophils # (Manual) (0.0-0.4) K/mm3 Basophils # (Manual) (0.0-0.1) K/mm3 Metamyelocytes # K/mm3 Myelocytes # K/mm3 Promyelocytes # K/mm3 Blast Cells # K/mm3 WBC Morphology Hypersegmented Neuts Hyposegmented Neuts Hypogranular Neuts Smudge Cells Toxic Granulation Toxic Vacuolation Dohle Bodies Pelger-Huet Anomaly Katie Rods Platelet Estimate Clumped Platelets Plt Clumps, EDTA Large Platelets Giant Platelets Platelet Satelliting Plt Morphology Comment RBC Morphology Dimorphic RBCs Polychromasia Hypochromasia Poikilocytosis Anisocytosis Microcytosis Macrocytosis Spherocytes Pappenheimer Bodies Sickle Cells Target Cells Tear Drop Cells Ovalocytes Helmet Cells Torres-Lutcher Bodies [place] Rings [place] Cells Bite Cells Crenated Cell Elliptocytes Acanthocytes (Spur) Rouleaux Hemoglobin C Crystals Schistocytes Malaria parasites Connor Bodies Hem Pathologist Commnt Sodium (137-145) mmol/L Potassium (3.6-5.0) mmol/L Chloride (98-107) mmol/L Carbon Dioxide (22-30) mmol/L Anion Gap mmol/L BUN (9-20) mg/dL Creatinine (0.8-1.3) mg/dL Estimated GFR ml/min BUN/Creatinine Ratio % Glucose (75-100) mg/dL Calcium (8.4-10.2) mg/dL Magnesium (1.7-2.3) mg/dL Total Bilirubin (0.1-1.2) mg/dL AST (5-40) units/L ALT (7-56) units/L Alkaline Phosphatase (35-129) units/L Total Creatine Kinase (55-170) units/L Troponin T (0.00-0.029) ng/mL Total Protein (6.3-8.2) g/dL Albumin (3.9-5) g/dL Albumin/Globulin Ratio % Salicylates (2.8-20.0) mg/dL Acetaminophen (10.0-30.0) ug/mL Plasma/Serum Alcohol 0.38 H (0-0.07) % - EKG Data -: EKG Interpreted by [facility] EKG shows normal: sinus rhythm Rate: normal - EKG Data When compared to previous EKG there are: no significant change 05/31/20 01:54 EKG interpretation, 12: 50 a.m. Sinus rhythm, 99 bpm. Normal axis, first-degree AV block. Left ventricular hypertrophy. Minimal motion artifact. Abnormal EKG. Not a STEMI. Borderline poor R wave progression. 05/31/20 01:55 EKG is unchanged from prior EKG from April 2020 - Radiology Data Radiology results: pending, report reviewed, image reviewed X-ray the chest is negative for acute findings. Noncontrast CT scan of the brain: Noncontrast CT scan of the brain is negative for acute findings. - Medical Decision Making Differential diagnosis, including but not limited to: Alcoholism, costochondri tis, GERD, gastritis, hiatal hernia, pneumonia, homelessness, case management patient, secondary gain, chronic tinnitus, chronic neuropathy, intracranial hemorrhage/injury Assessment and plan: 59-year-old gentleman who is well-known to myself in this institution, who presents to the ER currently intoxicated, with his typical constellation of chronic complaints, including left-sided chest pain, and left arm/forearm tingling and neuropathy. He has a nonfocal motor exam, there is no evidence of blunt head trauma, he has no midline neck tenderness or step-offs, and he is moving 4 extremities spontaneously, with 5 out of 5 strength in 4 extremities. His recent cardiac catheterization is reviewed and appreciated, EKG unchanged from prior, troponin negative x1, symptoms present for greater than 24 hours, therefore, acute myocardial infarction is excluded. It is unlikely that the patient would benefit from repeat cardiac risk ratification, this is likely a manifestation of his chronic underlying medical conditions, which does not appear to be acutely decompensated such that he would require admission to the hospital. His tachycardia has resolved, and he is not currently tachycardic, t achypneic or hypoxic. There is no palpable cord in his lower extremities, he has equal pulses in the upper and lower extremities, unremarkable mediastinum and no pulsatile abdominal mass, therefore, aortic disease is unlikely. We will obtain noncontrast CT scan of the brain given his multiple nonspecific complaints, to exclude intracranial hemorrhage, which I doubt. We will also continue his current outpatient medications, and once sober, discharged home. I recently discharged this patient with appropriate medications. He is not currently homicidal or suicidal, he is cooperative, do not see indication for 1013 at this time. He will be placed on hold status pending clinical sobriety. Critical care attestation.: If time is entered above; I have spent that time in minutes in the direct care of this critically ill patient, excluding procedure time. ED Disposition Clinical Impression: Alcoholism, Chronic chest pain, History of neuropathy Disposition: DC-01 TO HOME OR SELFCARE Is pt being admited?: No Does the pt Need Aspirin: No Condition: Good Instructions: Nonspecific Chest Pain, Adult Additional Instructions: Please continue the medications that were recently prescribed to the patient. Avoid consumption of alcohol, tobacco, smoke products, Motrin, ibuprofen, Naprosyn, Aleve. Take a multivitamin on a daily basis. Make certain to follow- up with an outpatient primary care doctor or chief administrative officer within the next 3 to 5 days. Continue consumption of alcohol, and noncompliance with the recently prescribed medications may result in long-term disability, , paralysis, loss of quality of life. Please return to the emergency room right away with new pain, worsening pain, migration of pain, projectile vomiting, change in mental status, confusion, inability to tolerate liquid feeds, new, worsened or different symptoms not present on the initial emergency room evaluation. Referrals: SHANNON HORTA MD [Staff Physician] - 3-5 Days MATHEW REAVES MD [Staff Physician] - 3-5 Days
[2020-05-31 02:09] LABS: Total Cells Counted 100
[2020-05-31 02:10] LABS: Anisocytosis RARE
--- NOTE | 2020-05-31 02:26 | Cat Scan Report ---
CT HEAD WITHOUT CONTRAST INDICATION / CLINICAL INFORMATION: E.T.O.H. intoxication, left hand arm numbness. TECHNIQUE: All CT scans at this location are performed using CT dose reduction for ALARA by means of automated e xposure control. COMPARISON: Head CT 05/16/2020 FINDINGS: HEMORRHAGE: None. EXTRA-AXIAL SPACES: Normal in size and morphology for the patient's age. VENTRICULAR SYSTEM: Normal in size and morphology for the patient's age. CEREBRAL PARENCHYMA: Mild cerebral atrophy No significant abnormality. No acute territorial infarct. MIDLINE SHIFT OR HERNIATION: None. CEREBELLUM / BRAINSTEM: No significant abnormality. ORBITS: Normal as visualized. SOFT TISSUES of HEAD: No significant abnormality. CALVARIUM: No significant abnormality. PARANASAL SINUSES / MASTOID AIR CELLS: Normal as visualized. ADDITIONAL FINDINGS: Chronic nasal fracture deformity, unchanged IMPRESSION: 1. No acute intracranial abnormality. Signer Name: Inderjit Montero MD Signed: 05/31/2020 2:21 AM Workstation Name: [id number]
[2020-05-31 07:45] VITALS: BP 108/65
[2020-05-31] MEDS ORDERED: MULTIVITAMINS ,THERAPEUTIC TAB PO SCH (10:00)
[2020-05-31] MEDS ORDERED: ASPIRIN 325 MG TAB PO SCH (10:00)
[2020-05-31] MEDS ORDERED: METOPROLOL TARTRATE 25 MG TAB PO SCH (10:00)
[2020-05-31] MEDS ORDERED: THIAMINE 100 MG TAB PO SCH (10:00)
[2020-05-31] MEDS ORDERED: PANTOPRAZOLE 40 MG TAB PO SCH (10:00)
[2020-05-31] MEDS ORDERED: FOLIC ACID 1 MG TAB PO SCH (10:00)
[2020-05-31] MEDS ORDERED: PRAVASTATIN 20 MG TAB PO SCH (22:00)
--- NOTE | 2020-06-01 11:15 | Electrocardiograph Report ---
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
== END 2020-05-31 10:41 | disposition home or self-care (01) ==
LOC: ED 00:23
DX: F10.20 Alcohol dependence, uncomplicated (principal); Y90.9 Presence of alcohol in blood, level not specified; R07.89 Other chest pain; I10 Essential (primary) hypertension; I25.2 Old myocardial infarction; Z79.899 Other long term (current) drug therapy
CPT/HCPCS: 36415; 70450; 71045; 80053; 80320; 82550; 82962; 83735; 84484; 85007; 85025; 93005; G0480

== ENCOUNTER 2020-06-05 01:04 | Emergency (ER) | payer MEDICAID ==
[2020-06-05 02:37] LABS: Alanine Aminotransferase 33 units/L (7-56); Albumin 4.3 g/dL (3.9-5); Blood Urea Nitrogen 6 mg/dL (9-20); Calcium 8.8 mg/dL (8.4-10.2); Eosinophils # (Auto) 0.1 K/mm3 (0.0-0.4); Hematocrit 39.9 % (35.5-45.6); Hemoglobin 13.2 gm/dl (11.8-15.2); Hemolysis Index 13; Lymphocytes # (Auto) 1.4 K/mm3 (1.2-5.4); Mean Corpuscular HGB Conc 33 % (32-34); Mean Corpuscular Volume 91 fl (84-94); Monocytes # (Auto) 0.4 K/mm3 (0.0-0.8); Monocytes % (Auto) 13.2 % (0.0-7.3); Red Blood Count 4.36 M/mm3 (3.65-5.03); Red Cell Distribution Width 16.8 % (13.2-15.2)
[2020-06-05 02:41] LABS: Platelet Count 72 K/mm3 (140-440)
[2020-06-05 02:42] LABS: BUN/Creatinine Ratio 9
--- NOTE | 2020-06-05 02:48 | XRay Report ---
CHEST 1 VIEW INDICATION: SOB w/ Chest pain COMPARISON: 05/31/2020 FINDINGS: Support devices: None Heart: Normal and unchanged Lungs/Pleura: No acute pulmonary or pleural findings. IMPRESSION: 1. No acute disease and no interval change. Signer Name: Gen Schafer MD Signed: 06/05/2020 2:44 AM Workstation Name: [id number]
--- NOTE | 2020-06-05 04:06 | Emergency Department Report ---
ED Alcohol HPI - General Chief Complaint: Chest Pain Stated Complaint: CHEST PAIN/SOB/DIZZINESS Time Seen by Provider: 06/05/20 03:58 Source: patient Mode of arrival: Wheelchair Limitations: Physical Limitation - History of Present Illness Initial Comments: CC: "I had a little bit to drink." HPI: This is a 59 yo male with hx of alcohol dependence, recurrent chest pain without hx of obstructive CAD, gastritis, DJD who presents with chest pain. Patient does not endorse chest pain to me. He desires to sleep., [facility] 10/11/2019-Mild coronary artery disease and mild cardiomyopathy MD Complaint: alcohol intoxication, alcohol dependence Last Drink: just [employer] Chronic Alcohol Use: Yes Previous Visits for Alcohol Intoxication?: Yes Associated Symptoms: other (chest pain) Treatments Prior to Arrival: none - Related Data Previous Rx's Medication Instructions Recorded Last Taken Type predniSONE [Deltasone] 40 mg PO QDAY #10 tab 10/12/19 Unknown Rx Esomeprazole Magnesium [NexIUM] 40 mg PO QDAY #30 capsule. 10/18/19 Unknown Rx Aspirin 325 mg PO QDAY #30 tablet 10/23/19 Unknown Rx Metoprolol [Lopressor TAB] 25 mg PO BID #60 tablet 10/23/19 Unknown Rx Aspirin 325 mg PO QDAY #30 tablet 05/16/20 Unknown Rx Folic Acid [Folvite] 1 mg PO QDAY #30 tablet 05/16/20 Unknown Rx Metoprolol [Lopressor TAB] 25 mg PO BID #60 tablet 05/16/20 Unknown Rx Multivitamin with Folic Acid [[facility] 400 mcg PO QDAY #30 tablet 05/16/20 Unknown Rx One Daily Essential Tablet] Pantoprazole [Protonix TAB] 40 mg PO QDAY #30 tablet 05/16/20 Unknown Rx Pravastatin [Pravachol] 20 mg PO QHS #30 tablet 05/16/20 Unknown Rx Thiamine [Vitamin B-1] 100 mg PO QDAY #30 tablet 05/16/20 Unknown Rx Allergies Allergy/AdvReac Type Severity Reaction Status Date / Time No Known Allergies Allergy Verified 05/31/20 00:31 ED Review of Systems ROS: Stated complaint: CHEST PAIN/SOB/DIZZINESS Other details as noted in HPI Comment: All other systems reviewed and negative Constitutional: denies: fever, malaise Respiratory: denies: cough, shortness of breath Cardiovascular: chest pain ED Past Medical Hx - Past Medical History Previous Medical History?: Yes Hx Hypertension: Yes Hx CVA: Yes (left) Hx Heart Attack/AMI: Yes Hx Congestive Heart Failure: No Hx Diabetes: No Hx Asthma: No Hx COPD: No Hx HIV: No Additional medical history: chronic pain in back, neck and L knee, ETOH abuse. herniated disc - Surgical History Past Surgical History?: Yes Additional Surgical History: Left Knee. skin graft to right hand - Social History Smoking Status: Never Smoker - Medications Home Medications: Home Medications Medication Instructions Recorded Confirmed Last Taken Type predniSONE [Deltasone] 40 mg PO QDAY #10 tab 10/12/19 Unknown Rx Esomeprazole Magnesium [NexIUM] 40 mg PO QDAY #30 capsule. 10/18/19 Unknown Rx Aspirin 325 mg PO QDAY #30 tablet 10/23/19 Unknown Rx Metoprolol [Lopressor TAB] 25 mg PO BID #60 tablet 10/23/19 Unknown Rx Aspirin 325 mg PO QDAY #30 tablet 05/16/20 Unknown Rx Folic Acid [Folvite] 1 mg PO QDAY #30 tablet 05/16/20 Unknown Rx Metoprolol [Lopressor TAB] 25 mg PO BID #60 tablet 05/16/20 Unknown Rx Multivitamin with Folic Acid [[facility] 400 mcg PO QDAY #30 tablet 05/16/20 Unknown Rx One Daily Essential Tablet] Pantoprazole [Protonix TAB] 40 mg PO QDAY #30 tablet 05/16/20 Unknown Rx Pravastatin [Pravachol] 20 mg PO QHS #30 tablet 05/16/20 Unknown Rx Thiamine [Vitamin B-1] 100 mg PO QDAY #30 tablet 05/16/20 Unknown Rx ED Physical Exam - General Limitations: Physical Limitation General appearance: alert, in no apparent distress - Head Head exam: Present: atraumatic, normocephalic - Eye Eye exam: Present: normal appearance - ENT ENT exam: Present: mucous membranes moist - Neck Neck exam: Present: normal inspection, full ROM - Respiratory Respiratory exam: Present: normal lung sounds bilaterally. Absent: respiratory distress, wheezes, rales, rhonchi - Cardiovascular Cardiovascular Exam: Present: regular rate, normal rhythm, normal heart sounds. Absent: systolic murmur, diastolic murmur, rubs, gallop - GI/Abdominal GI/Abdominal exam: Present: soft, normal bowel sounds. Absent: distended, tenderness, guarding, rebound - Rectal Rectal exam: Present: deferred - Neurological Exam Neurological exam: Present: alert, oriented X3 - Psychiatric Psychiatric exam: Present: normal affect, normal mood - Skin Skin exam: Present: warm, dry, intact, normal color. Absent: rash ED Course Vital Signs 06/05/20 02:00 Temperature 97.8 F Pulse Rate 114 H Respiratory 18 Rate Blood Pressure 119/83 O2 Sat by Pulse 98 Oximetry ED Medical Decision Making - Lab Data Result diagrams: 06/05/20 02:04 06/05/20 02:04 Laboratory Results - last 24 hr 06/05/20 06/05/20 02:04 02:04 WBC 3.2 L RBC 4.36 Hgb 13.2 Hct 39.9 MCV 91 MCH 30 MCHC 33 RDW 16.8 H Plt Count 72 L Lymph % (Auto) 44.0 H [place] % (Auto) 13.2 H Eos % (Auto) 3.0 Baso % (Auto) 1.0 Lymph # (Auto) 1.4 [place] # (Auto) 0.4 Eos # (Auto) 0.1 Baso # (Auto) 0.0 Seg Neutrophils % 38.8 L Seg Neutrophils # 1.3 L Sodium 139 Potassium 3.6 Chloride 100.6 Carbon Dioxide 23 Anion Gap 19 BUN 6 L Creatinine 0.7 L Estimated GFR > 60 BUN/Creatinine Ratio 9 Glucose 140 H Calcium 8.8 Total Bilirubin 0.30 AST 80 H ALT 33 Alkaline Phosphatase 168 H Total Protein 6.9 Albumin 4.3 Albumin/Globulin Ratio 1.7 - EKG Data -: EKG Interpreted by Al EKG shows normal: sinus rhythm, axis, QRS complexes, ST-T waves Rate: normal - EKG Data 06/05/20 04:05 EKG obtained [address] Normal sinus rhythm rate 95 bpm prolonged W[place] interval no ST elevation nonischemic T wave pattern - Radiology Data Radiology results: report reviewed Chest radiograph no acute disease no interval change - Medical Decision Making 1. Acute alcohol intoxication ingestion. Patient insightful cooperative desires to sleep. 2. Recurrent noncardiac chest pain possibly chest wall pain esophagitis EKG unchanged from prior. Critical care attestation.: If time is entered above; I have spent that time in minutes in the direct care of this critically ill patient, excluding procedure time. ED Disposition Clinical Impression: GERD (gastroesophageal reflux disease), Alcohol intoxication, Chest wall pain Disposition: DC-01 TO HOME OR SELFCARE Is pt being admited?: No Does the pt Need Aspirin: No Condition: Stable Referrals: MATHEW REAVES MD [Staff Physician] - 3-5 Days
[2020-06-05 04:47] VITALS: BP 108/72
--- NOTE | 2020-06-09 10:08 | Electrocardiograph Report ---
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
== END 2020-06-05 06:57 | disposition home or self-care (01) ==
LOC: ED 01:04
DX: K21.9 Gastro-esophageal reflux disease without esophagitis (principal); F10.129 Alcohol abuse with intoxication, unspecified; R07.89 Other chest pain; I10 Essential (primary) hypertension; I25.2 Old myocardial infarction; Z86.73 Personal history of transient ischemic attack (TIA), and cerebral infarction without residual deficits; Z79.82 Long term (current) use of aspirin; Z79.899 Other long term (current) drug therapy
CPT/HCPCS: 36415; 71045; 80053; 85025; 93005; 99283

== ENCOUNTER 2020-06-08 00:07 | Emergency (ER) | payer MEDICAID ==
--- NOTE | 2020-06-08 01:14 | XRay Report ---
CHEST PA AND LATERAL VIEWS INDICATION: chest pain. COMPARISON: 06/05/2020 FINDINGS: Support devices: None Heart: Stable. Lungs/Pleura: Significantly suboptimal inspiration, but no definite acute disease. IMPRESSION: 1. No significant change. Signer Name: Gen Schafer MD Signed: 06/08/2020 1:10 AM Workstation Name: [id number]
--- NOTE | 2020-06-08 01:23 | Emergency Department Report ---
ED Chest Pain HPI - General Chief Complaint: Chest Pain Stated Complaint: CHEST PAIN/SOB/DIZZINESS Time Seen by Provider: 06/08/20 00:50 Source: patient Mode of arrival: Ambulatory Limitations: Physical Limitation - History of Present Illness Initial Comments: 59-year-old male presents to the emergency department with a complaint of some midsternal to left-sided chest discomfort, upper abdominal pain, and some nausea without vomiting that started earlier in the day. Patient has a past medical history that includes hypertension, previous CVA, chronic musculoskeletal pains, chronic and/or recurrent chest pains, GERD and gastritis, as well as alcohol intoxication/dependence. The patient admits to drinking "a little, a small amount of a light beer" in order to treat his discomfort. Patient says that he has taken some of his medications but other medications need to be refilled and he could not do so because of the rain today. He denies having a primary care physician or blemish remover. The patient was seen here 2 days ago with similar symptoms. The patient had a heart cath done on 10/11/2019 that showed mild cardiomyopathy with an EF of 40 to 50% and mild CAD that was treated medically. - Related Data Previous Rx's Medication Instructions Recorded Last Taken Type predniSONE [Deltasone] 40 mg PO QDAY #10 tab 10/12/19 Unknown Rx Esomeprazole Magnesium [NexIUM] 40 mg PO QDAY #30 capsule. 10/18/19 Unknown Rx Aspirin 325 mg PO QDAY #30 tablet 10/23/19 Unknown Rx Metoprolol [Lopressor TAB] 25 mg PO BID #60 tablet 10/23/19 Unknown Rx Aspirin 325 mg PO QDAY #30 tablet 05/16/20 Unknown Rx Folic Acid [Folvite] 1 mg PO QDAY #30 tablet 05/16/20 Unknown Rx Metoprolol [Lopressor TAB] 25 mg PO BID #60 tablet 05/16/20 Unknown Rx Multivitamin with Folic Acid [[facility]vs 400 mcg PO QDAY #30 tablet 05/16/20 Unknown Rx One Daily Essential Tablet] Pantoprazole [Protonix TAB] 40 mg PO QDAY #30 tablet 05/16/20 Unknown Rx Pravastatin [Pravachol] 20 mg PO QHS #30 tablet 05/16/20 Unknown Rx Thiamine [Vitamin B-1] 100 mg PO QDAY #30 tablet 05/16/20 Unknown Rx Allergies Allergy/AdvReac Type Severity Reaction Status Date / Time No Known Allergies Allergy Verified 05/31/20 00:31 Heart Score - HEART Score History: Slightly suspicious EKG: Normal Age: 45-65 Risk factors: > 3 risk factors or hx of atherosclerotic disease Troponin: < normal limit HEART Score: 3 - EKG Read Time Time EKG Completed: 00:19 EKG Read Time: 00:21 - Critical Actions Critical Actions: 0-3 pts:0.9-1.7%risk of adverse cardiac event.Candidate for discharge ED Review of Systems ROS: Stated complaint: CHEST PAIN/SOB/DIZZINESS Other details as noted in HPI Comment: All other systems reviewed and negative Constitutional: denies: chills, fever Eyes: denies: eye pain, vision change ENT: denies: ear pain, throat pain Respiratory: denies: cough, wheezing Cardiovascular: chest pain. denies: edema Gastrointestinal: abdominal pain, nausea. denies: vomiting Genitourinary: denies: dysuria, discharge Musculoskeletal: denies: joint swelling, arthralgia Skin: denies: rash, lesions Neurological: denies: headache, weakness ED Past Medical Hx - Past Medical History Previous Medical History?: Yes Hx Hypertension: Yes Hx CVA: Yes (left) Hx Heart Attack/AMI: Yes Hx Congestive Heart Failure: No Hx Diabetes: No Hx Asthma: No Hx COPD: No Hx HIV: No Additional medical history: chronic pain in back, neck and L knee, ETOH abuse. herniated disc - Surgical History Past Surgical History?: Yes Additional Surgical History: Left Knee. skin graft to right hand - Social History Smoking Status: Never Smoker Substance Use Type: Alcohol - Medications Home Medications: Home Medications Medication Instructions Recorded Confirmed Last Taken Type predniSONE [Deltasone] 40 mg PO QDAY #10 tab 10/12/19 Unknown Rx Esomeprazole Magnesium [NexIUM] 40 mg PO QDAY #30 capsule. 10/18/19 Unknown Rx Aspirin 325 mg PO QDAY #30 tablet 10/23/19 Unknown Rx Metoprolol [Lopressor TAB] 25 mg PO BID #60 tablet 10/23/19 Unknown Rx Aspirin 325 mg PO QDAY #30 tablet 05/16/20 Unknown Rx Folic Acid [Folvite] 1 mg PO QDAY #30 tablet 05/16/20 Unknown Rx Metoprolol [Lopressor TAB] 25 mg PO BID #60 tablet 05/16/20 Unknown Rx Multivitamin with Folic Acid [Cvs 400 mcg PO QDAY #30 tablet 05/16/20 Unknown Rx One Daily Essential Tablet] Pantoprazole [Protonix TAB] 40 mg PO QDAY #30 tablet 05/16/20 Unknown Rx Pravastatin [Pravachol] 20 mg PO QHS #30 tablet 05/16/20 Unknown Rx Thiamine [Vitamin B-1] 100 mg PO QDAY #30 tablet 05/16/20 Unknown Rx ED Physical Exam - General Limitations: Physical Limitation - Other Other exam information: GENERAL: The patient is well-developed well-nourished. HENT: Normocephalic. Atraumatic. Patient has moist mucous membranes. EYES: Extraocular motions are intact. NECK: Supple. Trachea is midline. CHEST/LUNGS: Clear to auscultation. There is no respiratory distress noted. HEART/CARDIOVASCULAR: Regular. There is no tachycardia. There is no murmur. ABDOMEN: Abdomen is soft, nontender. Patient has normal bowel sounds. SKIN: Skin is warm and dry. NEURO: The patient is awake, alert, and oriented. The patient is cooperative. The patient has no focal neurologic deficits. Normal speech. MUSCULOSKELETAL: There is no tenderness or deformity. There is no limitation range of motion. ED Course Vital Signs 06/08/20 06/08/20 06/08/20 00:12 01:00 06:19 Temperature 98.1 F 97.5 F L Pulse Rate 104 H 16 L Respiratory 16 18 18 Rate Blood Pressure 154/101 Blood Pressure 111/67 [Left] O2 Sat by Pulse 99 100 97 Oximetry CHALO score - Chalo Score Age > 65: (0) No Aspirin use within the Past 7 Days: (0) No 3 or more CAD Risk Factors: (1) Yes 2 or more Angina events in past 24 hrs: (1) Yes Known CAD with more than 50% Stenosis: (0) No Elevated Cardiac Markers: (0) No ST Deviation Greater than 0.5mm: (0) No CHALO Score: 2 ED Medical Decision Making - Lab Data Result diagrams: 06/08/20 00:55 06/08/20 00:55 Lab Results 06/08/20 06/08/20 06/08/20 Range/Units 00:55 00:55 00:55 WBC 3.1 L (4.5-11.0) K/mm3 RBC 4.23 (3.65-5.03) M/mm3 Hgb 12.6 (11.8-15.2) gm/dl Hct 38.0 (35.5-45.6) % MCV 90 (84-94) fl MCH 30 (28-32) pg MCHC 33 (32-34) % RDW 17.3 H (13.2-15.2) % Plt Count 85 L (140-440) K/mm3 Add Manual Diff Complete Total Counted 100 Seg Neutrophils % Pipe Layer Helper Seg Neuts % (Manual) 26.0 L (40.0-70.0) % Lymphocytes % (Manual) 56.0 H (13.4-35.0) % Monocytes % (Manual) 14.0 H (0.0-7.3) % Eosinophils % (Manual) 4.0 (0.0-4.3) % Nucleated RBC % Not Reportable Seg Neutrophils # Man 0.8 L (1.8-7.7) K/mm3 Band Neutrophils # 0.0 K/mm3 Lymphocytes # (Manual) 1.7 (1.2-5.4) K/mm3 Abs React Lymphs (Man) 0.0 K/mm3 Monocytes # (Manual) 0.4 (0.0-0.8) K/mm3 Eosinophils # (Manual) 0.1 (0.0-0.4) K/mm3 Basophils # (Manual) 0.0 (0.0-0.1) K/mm3 Metamyelocytes # 0.0 K/mm3 Myelocytes # 0.0 K/mm3 Promyelocytes # 0.0 K/mm3 Blast Cells # 0.0 K/mm3 WBC Morphology Not Reportable Hypersegmented Neuts Not Reportable Hyposegmented Neuts Not Reportable Hypogranular Neuts Not Reportable Smudge Cells Not Reportable Toxic Granulation Not Reportable Toxic Vacuolation Not Reportable Dohle Bodies Not Reportable Pelger-Huet Anomaly Not Reportable Katie Rods Not Reportable Platelet Estimate Consistent w auto Clumped Platelets Not Reportable Plt Clumps, EDTA Not Reportable Large Platelets Not Reportable Giant Platelets Not Reportable Platelet Satelliting Not Reportable Plt Morphology Comment Not Reportable RBC Morphology Not Reportable Dimorphic RBCs Not Reportable Polychromasia Not Reportable Hypochromasia Few Poikilocytosis Not Reportable Anisocytosis Few Microcytosis Not Reportable Macrocytosis Not Reportable Spherocytes Rare Pappenheimer Bodies Not Reportable Sickle Cells Not Reportable Target Cells 1+ Tear Drop Cells Not Reportable Ovalocytes Few Helmet Cells Not Reportable Torres-[place] Bodies Not Reportable [place] Rings Not Reportable [place] Cells Not Reportable Bite Cells Not Reportable Crenated Cell Not Reportable Elliptocytes Not Reportable Acanthocytes (Spur) Not Reportable Rouleaux Not Reportable Hemoglobin C Crystals Not Reportable Schistocytes Not Reportable Malaria parasites Not Reportable Connor Bodies Not Reportable Hem Pathologist Commnt No PT (12.2-14.9) Sec. INR (0.87-1.13) Sodium 140 (137-145) mmol/L Potassium 4.2 (3.6-5.0) mmol/L Chloride 104.0 (98-107) mmol/L Carbon Dioxide 25 (22-30) mmol/L Anion Gap 15 mmol/L BUN 12 (9-20) mg/dL Creatinine 0.7 L (0.8-1.3) mg/dL Estimated GFR > 60 ml/min BUN/Creatinine Ratio 17 % Glucose 89 (75-100) mg/dL Calcium 8.2 L (8.4-10.2) mg/dL Total Bilirubin 0.20 (0.1-1.2) mg/dL AST 98 H (5-40) units/L ALT 36 (7-56) units/L Alkaline Phosphatase 165 H (35-129) units/L Troponin T < 0.010 (0.00-0.029) ng/mL Total Protein 6.8 (6.3-8.2) g/dL Albumin 4.1 (3.9-5) g/dL Albumin/Globulin Ratio 1.5 % Plasma/Serum Alcohol (0-0.07) % 06/08/20 06/08/20 06/08/20 Range/Units 01:01 01:01 02:58 WBC (4.5-11.0) K/mm3 RBC (3.65-5.03) M/mm3 Hgb (11.8-15.2) gm/dl Hct (35.5-45.6) % MCV (84-94) fl MCH (28-32) pg MCHC (32-34) % RDW (13.2-15.2) % Plt Count (140-440) K/mm3 Add Manual Diff Total Counted Seg Neutrophils % Seg Neuts % (Manual) (40.0-70.0) % Lymphocytes % (Manual) (13.4-35.0) % Monocytes % (Manual) (0.0-7.3) % Eosinophils % (Manual) (0.0-4.3) % Nucleated RBC % Seg Neutrophils # Man (1.8-7.7) K/mm3 Band Neutrophils # K/mm3 Lymphocytes # (Manual) (1.2-5.4) K/mm3 Abs React Lymphs (Man) K/mm3 Monocytes # (Manual) (0.0-0.8) K/mm3 Eosinophils # (Manual) (0.0-0.4) K/mm3 Basophils # (Manual) (0.0-0.1) K/mm3 Metamyelocytes # K/mm3 Myelocytes # K/mm3 Promyelocytes # K/mm3 Blast Cells # K/mm3 WBC Morphology Hypersegmented Neuts Hyposegmented Neuts Hypogranular Neuts Smudge Cells Toxic Granulation Toxic Vacuolation Dohle Bodies Pelger-Huet Anomaly Katie Rods Platelet Estimate Clumped Platelets Plt Clumps, EDTA Large Platelets Giant Platelets Platelet Satelliting Plt Morphology Comment RBC Morphology Dimorphic RBCs Polychromasia Hypochromasia Poikilocytosis Anisocytosis Microcytosis Macrocytosis Spherocytes Pappenheimer Bodies Sickle Cells Target Cells Tear Drop Cells Ovalocytes Helmet Cells Torres-[place] Bodies [place] Rings [place] Cells Bite Cells Crenated Cell Elliptocytes Acanthocytes (Spur) Rouleaux Hemoglobin C Crystals Schistocytes Malaria parasites Connor Bodies Hem Pathologist Commnt PT 11.8 L (12.2-14.9) Sec. INR 0.88 (0.87-1.13) Sodium (137-145) mmol/L Potassium (3.6-5.0) mmol/L Chloride (98-107) mmol/L Carbon Dioxide (22-30) mmol/L Anion Gap mmol/L BUN (9-20) mg/dL Creatinine (0.8-1.3) mg/dL Estimated GFR ml/min BUN/Creatinine Ratio % Glucose (75-100) mg/dL Calcium (8.4-10.2) mg/dL Total Bilirubin (0.1-1.2) mg/dL AST (5-40) units/L ALT (7-56) units/L Alkaline Phosphatase (35-129) units/L Troponin T < 0.010 (0.00-0.029) ng/mL Total Protein (6.3-8.2) g/dL Albumin (3.9-5) g/dL Albumin/Globulin Ratio % Plasma/Serum Alcohol 0.26 H (0-0.07) % - EKG Data -: EKG Interpreted by Me EKG shows normal: sinus rhythm, axis, intervals (Prolonged PA interval), QRS complexes (Q waves to the septal leads), ST-T waves Rate: normal - EKG Data When compared to previous EKG there are: no significant change Interpretation: unchanged when compared t (06/05/20) - Radiology Data Radiology results: image reviewed interpreted by me: Chest x-ray does not show any acute process. There are no pleural effusions, obvious pneumonia and there is no pneumothorax. No significant cardiomegaly. - Medical Decision Making This patient presents to the emergency department with the complaint of some midsternal chest pain, upper abdominal pain, as well as nausea and vomiting. The patient denies drinking more alcohol than one beer but has a blood alcohol level of 0.26. EKG does not have any morphology consistent with ST elevation myocardial infarction and is unchanged from previous. Chest x-ray does not show any pneumonia, pleural effusions, pneumothorax, or any other acute process. Other than the blood alcohol level, the rest the patient's labs have been mostly unremarkable including CBC, metabolic panel and negative troponins x2. Vital signs have been reassuring throughout his ED course including being afebrile. The patient had a heart catheterization done in October of last year that showed some mild CAD that was treated medically. The patient has presented many times for these same complaints. Often it appears to be chest wall pain and upper abdominal discomfort secondary to GERD or gastritis given his history of alcohol dependence and abuse. Initially the patient was not given, and did not require, any medication and the patient was seen sleeping throughout most of his ED course. He has a heart score of 3 and is low on the CHALO score. Patient was signed out to my colleague, Dr. León Huston, to make sure the patient was at least clinically sober. His contact information has been sent over to the [facility], and someone from their office should be contacting him shortly for close outpatient follow-up as per our [facility] low risk chest pain protocol. Critical Care Time: No Critical care attestation.: If time is entered above; I have spent that time in minutes in the direct care o f this critically ill patient, excluding procedure time. ED Disposition Clinical Impression: ETOH abuse Alcohol intoxication Qualifiers: Complication of substance-induced condition: uncomplicated Qualified Code(s): F10.920 - Alcohol use, unspecified with intoxication, uncomplicated Chest pain Qualifiers: Chest pain type: unspecified Qualified Code(s): R07.9 - Chest pain, unspecified Disposition: DC-01 TO HOME OR SELFCARE Is pt being admited?: No Condition: Stable Instructions: Alcohol Abuse and Dependence Information, Adult, Binge-Drinking Information, Adult, Nonspecific Chest Pain, Adult Additional Instructions: Please follow-up with a primary care physician in the next few days. Please avoid any further alcohol abuse. I am sending your contact information over to the [facility], and someone from their office should be contacting you shortly for close outpatient follow-up. Just in case, I am giving you a referral for one of their cardiologists, Dr. Betancourt. Return to the emergency department with any worsening of your symptoms, new or concerning symptoms not addressed during this current emergency department visit, or with any acute distress. Referrals: PRIMARY MD ROVERTO [Primary Care Provider] - 3-5 Days CHANTELLE BETANCOURT MD [Staff Physician] - 3-5 Days Time of Disposition: 06:12
[2020-06-08 01:32] LABS: Hemoglobin 12.6 gm/dl (11.8-15.2); Mean Corpuscular HGB Conc 33 % (32-34); Mean Corpuscular Volume 90 fl (84-94); Red Blood Count 4.23 M/mm3 (3.65-5.03); Red Cell Distribution Width 17.3 % (13.2-15.2)
[2020-06-08 01:38] LABS: Platelet Count 85 K/mm3 (140-440)
[2020-06-08 01:41] LABS: INR 0.88 (0.87-1.13)
[2020-06-08 01:42] LABS: Alanine Aminotransferase 36 units/L (7-56); Albumin 4.1 g/dL (3.9-5); Blood Urea Nitrogen 12 mg/dL (9-20); Calcium 8.2 mg/dL (8.4-10.2); Hemolysis Index 9
[2020-06-08 01:43] LABS: BUN/Creatinine Ratio 17
[2020-06-08] MEDS ORDERED: ALUM-MAG HYDROXIDE-SIMETHICONE 200-200-20MG/5ML ORAL LIQD 30 ML PO ONE (01:47)
[2020-06-08] MEDS ORDERED: MULTIVITAMINS ,THERAPEUTIC TAB PO ONE (01:47)
[2020-06-08] MEDS ORDERED: THIAMINE 100 MG TAB PO ONE (01:47)
[2020-06-08] MEDS ORDERED: LIDOCAINE VISCOUS 2% 15 ML ORAL LIQD PO ONE (01:47)
[2020-06-08 04:45] LABS: Target Cells 1+; Total Cells Counted 100
[2020-06-08 04:46] LABS: Anisocytosis Few; Spherocytes Rare
[2020-06-08 04:47] LABS: Hypochromasia Few; Ovalocytes Few; Platelet Estimate Consistent w Auto
[2020-06-08 06:19] VITALS: BP 111/67
--- NOTE | 2020-06-09 10:45 | Electrocardiograph Report ---
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
== END 2020-06-08 11:32 | disposition home or self-care (01) ==
LOC: ED 00:07
DX: F10.129 Alcohol abuse with intoxication, unspecified (principal); R07.89 Other chest pain; I10 Essential (primary) hypertension; I25.2 Old myocardial infarction; Z98.890 Other specified postprocedural states; Z86.73 Personal history of transient ischemic attack (TIA), and cerebral infarction without residual deficits; Z79.899 Other long term (current) drug therapy
CPT/HCPCS: 36415; 71046; 80053; 80320; 84484; 85007; 85025; 85610; 93005; G0480

== ENCOUNTER 2020-06-12 22:24 | Emergency (ER) | payer MEDICAID ==
--- NOTE | 2020-06-13 00:18 | Event Note ---
ED Screening Note ED Screening Note: This is a 59-year-old male with history of alcohol dependence, with history of recurrent chest pain who presents with chest pain for the last 3 to 4 days. Nondescript pain. This initial assessment/diagnostic orders/clinical plan/treatment(s) is/are subject to change based on patients health status, clinical progression and re- assessment by fellow clinical providers in the ED. Further treatment and workup at subsequent clinical providers discretion. Patient/guardian urged not to elope from the ED as their condition may be serious if not clinically assessed and managed. Initial orders include: EKG, CBC chemistry troponin
[2020-06-13 00:49] LABS: Hematocrit 35.9 % (35.5-45.6); Hemoglobin 11.9 gm/dl (11.8-15.2); Mean Corpuscular HGB Conc 33 % (32-34); Mean Corpuscular Volume 90 fl (84-94); Platelet Count 157 K/mm3 (140-440); Red Blood Count 4.01 M/mm3 (3.65-5.03); Red Cell Distribution Width 16.5 % (13.2-15.2)
[2020-06-13 01:10] LABS: BUN/Creatinine Ratio 10; Blood Urea Nitrogen 10 mg/dL (9-20); Calcium 8.5 mg/dL (8.4-10.2); Hemolysis Index 4
--- NOTE | 2020-06-13 01:11 | XRay Report ---
CHEST 1 VIEW 06/12/2020 11:47 PM INDICATION / CLINICAL INFORMATION: Chest Pain. COMPARISON: 06/08/2020 FINDINGS: SUPPORT DEVICES: None. HEART / MEDIASTINUM: No significant abnormality. LUNGS / PLEURA: No significant pulmonary or pleural abnormality. No pneumothorax. ADDITIONAL FINDINGS: No significant additional findings. IMPRESSION: 1. No acute findings. Signer Name: Raffy Choe MD Signed: 06/13/2020 1:07 AM Workstation Name: [id number]
[2020-06-13 02:00] LABS: Anisocytosis 1+; Hypochromasia 1+; Platelet Estimate Consistent w Auto; Target Cells Few; Total Cells Counted 100
--- NOTE | 2020-06-13 08:34 | Emergency Department Report ---
ED Chest Pain HPI - General Chief Complaint: Chest Pain Stated Complaint: CHEST PAINS ARM NUMBNESS Time Seen by Provider: 06/13/20 08:26 Source: patient Mode of arrival: Ambulatory Limitations: No Limitations - History of Present Illness Initial Comments: 59-year-old male, history of alcoholism, recurrent chest pain, cardiomyopathy, resents to ED with complaint of chest pain. Patient has been seen multiple times in our ED with same complaint. Patient states, "You already know what's going on. Same pain as always. I been in the waiting room all night. I didn't know y'all were so short staffed. I feel better now, I can go." Patient states his pain was left-sided, radiating to his left arm. States pain is currently resolved. He reported some cough and shortness of breath. Denies any current dyspnea. Patient denies any fever or chills. MD Complaint: chest pain -: days(s) (4) Onset: during rest Pain Location: left chest Pain Radiation: LUE Severity: moderate Quality: sharp Consistency: intermittent Improves With: nothing Worsens With: nothing re: dyspnea. denies: nausea, vomting, diaphoresis Other Symptoms: cough. denies: fever, leg swelling Treatments Prior to Arrival: none - Related Data Previous Rx's Medication Instructions Recorded Last Taken Type predniSONE [Deltasone] 40 mg PO QDAY #10 tab 10/12/19 Unknown Rx Esomeprazole Magnesium [NexIUM] 40 mg PO QDAY #30 capsule. 10/18/19 Unknown Rx Aspirin 325 mg PO QDAY #30 tablet 10/23/19 Unknown Rx Metoprolol [Lopressor TAB] 25 mg PO BID #60 tablet 10/23/19 Unknown Rx Aspirin 325 mg PO QDAY #30 tablet 05/16/20 Unknown Rx Folic Acid [Folvite] 1 mg PO QDAY #30 tablet 05/16/20 Unknown Rx Metoprolol [Lopressor TAB] 25 mg PO BID #60 tablet 05/16/20 Unknown Rx Multivitamin with Folic Acid [Cvs 400 mcg PO QDAY #30 tablet 05/16/20 Unknown Rx One Daily Essential Tablet] Pantoprazole [Protonix TAB] 40 mg PO QDAY #30 tablet 05/16/20 Unknown Rx Pravastatin [Pravachol] 20 mg PO QHS #30 tablet 05/16/20 Unknown Rx Thiamine [Vitamin B-1] 100 mg PO QDAY #30 tablet 05/16/20 Unknown Rx Allergies Allergy/AdvReac Type Severity Reaction Status Date / Time No Known Allergies Allergy Verified 05/31/20 00:31 Heart Score - HEART Score History: Slightly suspicious EKG: Normal Age: 45-65 Risk factors: 1-2 risk factors Troponin: < normal limit HEART Score: 2 - EKG Read Time Time EKG Completed: 00:24 EKG Read Time: 00:30 ED Review of Systems ROS: Stated complaint: CHEST PAINS ARM NUMBNESS Other details as noted in HPI Comment: All other systems reviewed and negative Constitutional: denies: chills, fever Respiratory: cough, shortness of breath Cardiovascular: chest pain Gastrointestinal: denies: nausea, vomiting ED Past Medical Hx - Past Medical History Hx Hypertension: Yes Hx CVA: Yes (left) Hx Heart Attack/AMI: Yes Hx Congestive Heart Failure: No Hx Diabetes: No Hx Asthma: No Hx COPD: No Hx HIV: No Additional medical history: chronic pain in back, neck and L knee, ETOH abuse. herniated disc - Surgical History Additional Surgical History: Left Knee. skin graft to right hand - Social History Smoking Status: Current Every Day Smoker - Medications Home Medications: Home Medications Medication Instructions Recorded Confirmed Last Taken Type predniSONE [Deltasone] 40 mg PO QDAY #10 tab 10/12/19 Unknown Rx Esomeprazole Magnesium [NexIUM] 40 mg PO QDAY #30 capsule. 10/18/19 Unknown Rx Aspirin 325 mg PO QDAY #30 tablet 10/23/19 Unknown Rx Metoprolol [Lopressor TAB] 25 mg PO BID #60 tablet 10/23/19 Unknown Rx Aspirin 325 mg PO QDAY #30 tablet 05/16/20 Unknown Rx Folic Acid [Folvite] 1 mg PO QDAY #30 tablet 05/16/20 Unknown Rx Metoprolol [Lopressor TAB] 25 mg PO BID #60 tablet 05/16/20 Unknown Rx Multivitamin with Folic Acid [Cvs 400 mcg PO QDAY #30 tablet 05/16/20 Unknown Rx One Daily Essential Tablet] Pantoprazole [Protonix TAB] 40 mg PO QDAY #30 tablet 05/16/20 Unknown Rx Pravastatin [Pravachol] 20 mg PO QHS #30 tablet 05/16/20 Unknown Rx Thiamine [Vitamin B-1] 100 mg PO QDAY #30 tablet 05/16/20 Unknown Rx ED Physical Exam - General Limitations: No Limitations General appearance: alert, in no apparent distress - Head Head exam: Present: atraumatic, normocephalic - Eye Eye exam: Present: normal appearance, EOMI - ENT ENT exam: Present: mucous membranes moist - Neck Neck exam: Present: normal inspection - Respiratory Respiratory exam: Present: normal lung sounds bilaterally, chest wall tenderness. Absent: respiratory distress - Cardiovascular Cardiovascular Exam: Present: regular rate, normal rhythm - GI/Abdominal GI/Abdominal exam: Present: soft. Absent: distended, tenderness - Extremities Exam Extremities exam: Present: normal inspection - Neurological Exam Neurological exam: Present: alert, oriented X3 - Psychiatric Psychiatric exam: Present: normal affect, normal mood - Skin Skin exam: Present: warm, dry, intact, normal color ED Course Vital Signs 06/13/20 09:00 Temperature 98.7 F Pulse Rate 98 H Respiratory 18 Rate Blood Pressure 108/72 [Left] O2 Sat by Pulse 98 Oximetry MERT score - Mert Score Age > 65: (0) No Aspirin use within the Past 7 Days: (0) No 3 or more CAD Risk Factors: (1) Yes 2 or more Angina events in past 24 hrs: (1) Yes Known CAD with more than 50% Stenosis: (0) No Elevated Cardiac Markers: (0) No ST Deviation Greater than 0.5mm: (0) No MERT Score: 2 ED Medical Decision Making - Lab Data Result diagrams: 06/13/20 00:28 06/13/20 00:28 - EKG Data -: EKG Interpreted by Mo EKG shows normal: sinus rhythm, axis, intervals, QRS complexes, ST-T waves Rate: normal - EKG Data Interpretation: no acute changes - Radiology Data Radiology results: report reviewed, image reviewed - Medical Decision Making 59-year-old male presents to ED with his usual chest pain, currently chest pain- free. Patient had some chest wall tenderness on exam. EKG shows no ST changes. Troponin is normal. Chest x-ray unremarkable. Vital signs are normal. Outpatient follow-up advised. Return precautions given. - Differential Diagnosis ACS, chest wall pain, pneumonia, malingering Critical care attestation.: If time is entered above; I have spent that time in minutes in the direct care of this critically ill patient, excluding procedure time. ED Disposition Clinical Impression: Chest pain, Alcoholism Disposition: DC-01 TO HOME OR SELFCARE Is pt being admited?: No Condition: Stable Instructions: Nonspecific Chest Pain, Adult Referrals: PRIMARY CARE, [Primary Care Provider] - 3-5 Days [facility] [Provider Group] - 3-5 Days Time of Disposition: 08:37
[2020-06-13 09:04] VITALS: BP 108/72
--- NOTE | 2020-06-13 10:38 | Electrocardiograph Report ---
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
== END 2020-06-13 12:40 | disposition home or self-care (01) ==
LOC: ED 22:24
DX: R07.89 Other chest pain (principal); F10.20 Alcohol dependence, uncomplicated; I10 Essential (primary) hypertension; I25.2 Old myocardial infarction; F17.200 Nicotine dependence, unspecified, uncomplicated; Z98.890 Other specified postprocedural states; Z86.73 Personal history of transient ischemic attack (TIA), and cerebral infarction without residual deficits; Z79.899 Other long term (current) drug therapy
CPT/HCPCS: 36415; 71045; 80048; 80320; 84484; 85007; 85025; 93005; G0480

== ENCOUNTER 2020-06-17 01:39 | Emergency (ER) | payer MEDICAID ==
[2020-06-17] MEDS ORDERED: ASPIRIN 325 MG TAB PO ONE (04:09)
--- NOTE | 2020-06-17 04:15 | Event Note ---
ED Screening Note ED Screening Note: 59-year-old F Kyr[place] male presents emerged department complaining of another episode of chest pain. He reportedly frequents emergency department complaining of chest pain. He is alert and oriented x3 no acute respiratory distress ambulatory with no limitations. This initial assessment/diagnostic orders/clinical plan/treatment(s) is/are subject to change based on patients health status, clinical progression and re- assessment by fellow clinical providers in the ED. Further treatment and workup at subsequent clinical providers discretion. Patient/guardian urged not to elope from the ED as their condition may be serious if not clinically assessed and managed. Initial orders include: Triage nurse place chest pain protocol
[2020-06-17 04:31] LABS: Hematocrit 36.8 % (35.5-45.6); Hemoglobin 12.5 gm/dl (11.8-15.2); Mean Corpuscular HGB Conc 34 % (32-34); Mean Corpuscular Volume 90 fl (84-94); Platelet Count 185 K/mm3 (140-440); Red Blood Count 4.11 M/mm3 (3.65-5.03); Red Cell Distribution Width 16.9 % (13.2-15.2)
[2020-06-17 04:43] LABS: Basophils % (Auto) 1.2 % (0.0-1.8); Eosinophils % (Auto) 3.7 % (0.0-4.3); Lymphocytes # (Auto) 1.9 K/mm3 (1.2-5.4); Lymphocytes % (Auto) 57.7 % (13.4-35.0)
[2020-06-17 04:44] LABS: Basophils # (Auto) 0.1 K/mm3 (0.0-0.1); Eosinophils # (Auto) 0.1 K/mm3 (0.0-0.4); Monocytes # (Auto) 0.3 K/mm3 (0.0-0.8)
[2020-06-17 04:53] LABS: Alanine Aminotransferase 48 units/L (7-56); Albumin 4.6 g/dL (3.9-5); Blood Urea Nitrogen 9 mg/dL (9-20); Calcium 8.4 mg/dL (8.4-10.2); Hemolysis Index 2
--- NOTE | 2020-06-17 05:00 | XRay Report ---
CHEST PA AND LATERAL VIEWS INDICATION: chestpain and TANVI. COMPARISON: 06/13/2020 FINDINGS: Support devices: None. Heart: Within normal limits. Lungs/Pleura: No acute pulmonary or pleural findings. IMPRESSION: 1. No acute findings. Signer Name: Yogi Rouse MD Signed: 06/17/2020 4:56 AM Workstation Name: [id number]
[2020-06-17 05:11] LABS: BUN/Creatinine Ratio 13
[2020-06-17 09:18] VITALS: BP 124/89
--- NOTE | 2020-06-17 09:32 | Emergency Department Report ---
ED Chest Pain HPI - General Chief Complaint: Chest Pain Stated Complaint: CHEST PAIN;SOB Time Seen by Provider: 06/17/20 09:26 Source: patient Mode of arrival: Ambulatory Limitations: No Limitations - History of Present Illness Initial Comments: This is a 59-year-old male with a history of alcohol abuse and apparent drug- seeking behavior with multiple visits to the emergency department for various pain related complaints to include recurrent chest pain. Today he states he went to the [facility] to get some beer because he thought it would help with his chest pain. This chest pain is nonpleuritic and nonradiating. He referred some shortness of breath. At the time of my encounter he is not complaining of substantial chest pain nor shortness of breath. The patient's presents with a distinct odor of alcohol. He states he drank 1 beer but threw most of it away. He appears to be somewhat intoxicated. He is in a very poor state of hygiene and presents with his wheelchair. He states that he is "partially homeless" but currently resides with his brother. I did review a 2020 cardiac catheterization report. The patient has a dilated cardiomyopathy with an EF of 40 to 50%. He had a 50% RCA lesion. He had luminal irregularities in the right and left system. Dr. Rosa recommended medical management. The patient has never had a PCI. 10/11/19 Discharge Summary: Hospitalization Condition: Fair Pertinent studies: Stress thallium complete was abnormal. Results have been placed in the chart. Left heart catheterization normal coronaries Hospital course: Patient presents with midsternal chest pain. Appears to be costochondritis. Secondary to Chris himself in the wheelchair. Patient does have some reproducible chest pain that has resolved throughout hospital stay. Patient abnormal stress test left heart catheterization normal coronaries stable to discharge scheduled for follow-up with cardiology on October 20 and primary care physician in 7 days. Disposition: - TO HOME OR SELFCARE - Discharge Diagnoses (1) Costochondritis Status: Resolved Comment: Resolved NSAIDs PRN. (2) Abnormal thallium stress test Status: Acute Comment: Unremarkable left heart cardiac catheterization. (3) ETOH abuse Status: Acute Comment: Avoid drinking. Alcoholic anonymous. Counseling complete. (4) Alcoholism Status: Acute (5) GERD (gastroesophageal reflux disease) Status: Acute Qualifiers: Esophagitis presence: without esophagitis Qualified Code(s): K21.9 - Gastro-esophageal reflux disease without esophagitis Comment: Zegerid [id number]. Recurrent emergency depatment visits; last 06/13/20, per Dr. Parker: ED Chest Pain HPI - General Chief Complaint: Chest Pain Stated Complaint: CHEST PAINS ARM NUMBNESS Time Seen by Provider: 06/13/20 08:26 Source: patient Mode of arrival: Ambulatory Limitations: No Limitations - History of Present Illness Initial Comments: 59-year-old male, history of alcoholism, recurrent chest pain, cardiomyopathy, resents to ED with complaint of chest pain. Patient has been seen multiple times in our ED with same complaint. Patient states, "You already know what's going on. Same pain as always. I been in the waiting room all night. I didn't know y'all were so short staffed. I feel better now, I can go." Patient states his pain was left-sided, radiating to his left arm. States pain is currently resolved. He reported some cough and shortness of breath. Denies any current dyspnea. Patient denies any fever or chills. MD Complaint: chest pain -: Gradual, year(s) Onset: during rest Pain Location: substernal Pain Radiation: none Severity: mild, moderate Severity scale (0 -10): 0 Quality: dull Consistency: now resolved Improves With: nothing Worsens With: nothing Context: other (Multiple chronic pain complaints to include hip and back pain) re: dyspnea. denies: nausea, vomting, diaphoresis Other Symptoms: denies: cough, fever, syncope Treatments Prior to Arrival: none Aspirin use within the Past 7 Days: (0) No - Related Data Previous Rx's Medication Instructions Recorded Last Taken Type predniSONE [Deltasone] 40 mg PO QDAY #10 tab 10/12/19 Unknown Rx Esomeprazole Magnesium [NexIUM] 40 mg PO QDAY #30 capsule. 10/18/19 Unknown Rx Aspirin 325 mg PO QDAY #30 tablet 10/23/19 Unknown Rx Metoprolol [Lopressor TAB] 25 mg PO BID #60 tablet 10/23/19 Unknown Rx Aspirin 325 mg PO QDAY #30 tablet 05/16/20 Unknown Rx Folic Acid [Folvite] 1 mg PO QDAY #30 tablet 05/16/20 Unknown Rx Metoprolol [Lopressor TAB] 25 mg PO BID #60 tablet 05/16/20 Unknown Rx Multivitamin with Folic Acid [Cvs 400 mcg PO QDAY #30 tablet 05/16/20 Unknown Rx One Daily Essential Tablet] Pantoprazole [Protonix TAB] 40 mg PO QDAY #30 tablet 05/16/20 Unknown Rx Pravastatin [Pravachol] 20 mg PO QHS #30 tablet 05/16/20 Unknown Rx Thiamine [Vitamin B-1] 100 mg PO QDAY #30 tablet 05/16/20 Unknown Rx Allergies Allergy/AdvReac Type Severity Reaction Status Date / Time No Known Allergies Allergy Verified 05/31/20 00:31 Heart Score - HEART Score History: Slightly suspicious EKG: Non-specific Age: 45-65 Risk factors: 1-2 risk factors Troponin: < normal limit HEART Score: 3 - EKG Read Time Time EKG Completed: 04:03 EKG Read Time: 04:09 - Critical Actions Critical Actions: 0-3 pts:0.9-1.7%risk of adverse cardiac event.Candidate for discharge ED Review of Systems ROS: Stated complaint: CHEST PAIN;SOB Other details as noted in HPI Constitutional: denies: chills, fever Eyes: eye discharge. denies: eye pain, vision change ENT: denies: ear pain, throat pain Respiratory: shortness of breath. denies: cough, wheezing Cardiovascular: chest pain. denies: palpitations Endocrine: no symptoms reported Gastrointestinal: denies: abdominal pain, nausea, diarrhea Genitourinary: denies: urgency, dysuria Musculoskeletal: back pain, other (Chronic back and hip pain). denies: joint swelling, arthralgia Skin: denies: rash, lesions Neurological: denies: headache, weakness, paresthesias Psychiatric: denies: anxiety, depression Hematological/Lymphatic: denies: easy bleeding, easy bruising ED Past Medical Hx - Past Medical History Previous Medical History?: Yes Hx Hypertension: Yes Hx CVA: Yes (left) Hx Heart Attack/AMI: Yes Hx Congestive Heart Failure: No Hx Diabetes: No Hx Asthma: No Hx COPD: No Hx HIV: No Additional medical history: chronic pain in back, neck and L knee, ETOH abuse. herniated disc - Surgical History Past Surgical History?: Yes Additional Surgical History: Left Knee. skin graft to right hand - Social History Smoking Status: Never Smoker Substance Use Type: None - Medications Home Medications: Home Medications Medication Instructions Recorded Confirmed Last Taken Type predniSONE [Deltasone] 40 mg PO QDAY #10 tab 10/12/19 Unknown Rx Esomeprazole Magnesium [NexIUM] 40 mg PO QDAY #30 capsule. 10/18/19 Unknown Rx Aspirin 325 mg PO QDAY #30 tablet 10/23/19 Unknown Rx Metoprolol [Lopressor TAB] 25 mg PO BID #60 tablet 10/23/19 Unknown Rx Aspirin 325 mg PO QDAY #30 tablet 05/16/20 Unknown Rx Folic Acid [Folvite] 1 mg PO QDAY #30 tablet 05/16/20 Unknown Rx Metoprolol [Lopressor TAB] 25 mg PO BID #60 tablet 05/16/20 Unknown Rx Multivitamin with Folic Acid [Cvs 400 mcg PO QDAY #30 tablet 05/16/20 Unknown Rx One Daily Essential Tablet] Pantoprazole [Protonix TAB] 40 mg PO QDAY #30 tablet 05/16/20 Unknown Rx Pravastatin [Pravachol] 20 mg PO QHS #30 tablet 05/16/20 Unknown Rx Thiamine [Vitamin B-1] 100 mg PO QDAY #30 tablet 05/16/20 Unknown Rx ED Physical Exam - General Limitations: No Limitations General appearance: alert, in no apparent distress - Head Head exam: Present: atraumatic, normocephalic - Eye Eye exam: Present: normal appearance. Absent: scleral icterus - ENT ENT exam: Present: mucous membranes moist - Neck Neck exam: Present: normal inspection - Respiratory Respiratory exam: Present: normal lung sounds bilaterally. Absent: respiratory distress - Cardiovascular Cardiovascular Exam: Present: regular rate, normal rhythm. Absent: systolic murmur, diastolic murmur, rubs, gallop - GI/Abdominal GI/Abdominal exam: Present: soft, normal bowel sounds. Absent: distended, tenderness, guarding, rebound - Rectal Rectal exam: Present: deferred - Extremities Exam Extremities exam: Present: normal inspection - Back Exam Back exam: Present: normal inspection - Neurological Exam Neurological exam: Present: alert, oriented X3, CN II-XII intact. Absent: motor sensory deficit - Psychiatric Psychiatric exam: Present: normal affect, normal mood - Skin Skin exam: Present: warm, dry, intact, normal color. Absent: rash ED Course Vital Signs 06/17/20 06/17/20 03:55 09:13 Temperature 97.5 F L 96.9 F L Pulse Rate 99 H 99 H Respiratory 18 16 Rate Blood Pressure 122/83 Blood Pressure 124/89 [Right] O2 Sat by Pulse 96 97 Oximetry CHALO score - Chalo Score Age > 65: (0) No Aspirin use within the Past 7 Days: (0) No 3 or more CAD Risk Factors: (1) Yes 2 or more Angina events in past 24 hrs: (1) Yes Known CAD with more than 50% Stenosis: (0) No Elevated Cardiac Markers: (0) No ST Deviation Greater than 0.5mm: (0) No CHALO Score: 2 ED Medical Decision Making - Lab Data Result diagrams: 06/17/20 04:19 06/17/20 04:19 Laboratory Results - last 24 hr 06/17/20 06/17/20 06/17/20 04:19 04:19 04:19 WBC 3.3 L RBC 4.11 Hgb 12.5 Hct 36.8 MCV 90 MCH 30 MCHC 34 RDW 16.9 H Plt Count 185 Lymph % (Auto) 57.7 H Wharton % (Auto) 10.0 H Eos % (Auto) 3.7 Baso % (Auto) 1.2 Lymph # (Auto) 1.9 Wharton # (Auto) 0.3 Eos # (Auto) 0.1 Baso # (Auto) 0.1 Seg Neutrophils % 26.4 L Seg Neutrophils # 0.9 L Sodium 143 Potassium 4.0 Chloride 104.4 Carbon Dioxide 24 Anion Gap 19 BUN 9 Creatinine 0.7 L Estimated GFR > 60 BUN/Creatinine Ratio 13 Glucose 108 H Calcium 8.4 Total Bilirubin 0.30 AST 127 H ALT 48 Alkaline Phosphatase 152 H Troponin T 0.010 Total Protein 7.2 Albumin 4.6 Albumin/Globulin Ratio 1.8 06/17/20 09:03 WBC RBC Hgb Hct MCV MCH MCHC RDW Plt Count Lymph % (Auto) Wharton % (Auto) Eos % (Auto) Baso % (Auto) Lymph # (Auto) Wharton # (Auto) Eos # (Auto) Baso # (Auto) Seg Neutrophils % Seg Neutrophils # Sodium Potassium Chloride Carbon Dioxide Anion Gap BUN Creatinine Estimated GFR BUN/Creatinine Ratio Glucose Calcium Total Bilirubin AST ALT Alkaline Phosphatase Troponin T < 0.010 Total Protein Albumin Albumin/Globulin Ratio - EKG Data -: EKG Interpreted by Fl EKG shows normal: sinus rhythm, axis, intervals, QRS complexes, ST-T waves Rate: normal - EKG Data Interpretation: nonspecific ST-T wave robin, other (QS in V2 noted) - Radiology Data Radiology results: report reviewed (Chest x-ray no acute process) - Medical Decision Making Recurrent emergency department visits for chest pain. Failure to coordinate care with a primary care provider/freight adjuster. Chronic pain issues. Alc oholism. Patient is appropriate for outpatient disposition. Critical care attestation.: If time is entered above; I have spent that time in minutes in the direct care of this critically ill patient, excluding procedure time. ED Disposition Clinical Impression: Atypical chest pain Disposition: DC-01 TO HOME OR SELFCARE Is pt being admited?: No Does the pt Need Aspirin: No Condition: Stable Instructions: Nonspecific Chest Pain, Adult Additional Instructions: It is extremely important for you to establish a relationship with a primary care provider. This certainly could reduce the need for emergency department evaluation. Referrals: DOMONIQUE JUAREZ MD [Primary Care Provider] - 2-3 Days Time of Disposition: 11:26
== END 2020-06-17 11:00 | disposition home or self-care (01) ==
LOC: ED 01:39
DX: R07.89 Other chest pain (principal); I10 Essential (primary) hypertension; I25.2 Old myocardial infarction; Z98.890 Other specified postprocedural states; Z86.73 Personal history of transient ischemic attack (TIA), and cerebral infarction without residual deficits; Z79.899 Other long term (current) drug therapy
CPT/HCPCS: 36415; 71046; 80053; 84484; 85025; 93005

== ENCOUNTER 2020-06-21 00:33 | Emergency (ER) | payer MEDICAID ==
--- NOTE | 2020-06-21 02:48 | XRay Report ---
CHEST 1 VIEW INDICATION: chest pain with kenneth. COMPARISON: 06/17/2020 FINDINGS: Support devices: None. Heart: Normal. Lungs/Pleura: No acute pulmonary or pleural findings. IMPRESSION: 1. No acute findings. Signer Name: Yogi Rouse MD Signed: 06/21/2020 2:44 AM Workstation Name: [id number]
[2020-06-21 02:52] LABS: Hematocrit 37.7 % (35.5-45.6); Hemoglobin 12.5 gm/dl (11.8-15.2); Mean Corpuscular HGB Conc 33 % (32-34); Mean Corpuscular Volume 88 fl (84-94); Platelet Count 164 K/mm3 (140-440); Red Blood Count 4.27 M/mm3 (3.65-5.03); Red Cell Distribution Width 16.8 % (13.2-15.2)
[2020-06-21 03:17] LABS: Alanine Aminotransferase 40 units/L (7-56); Albumin 4.4 g/dL (3.9-5); BUN/Creatinine Ratio 11; Blood Urea Nitrogen 9 mg/dL (9-20); Calcium 8.2 mg/dL (8.4-10.2); Hemolysis Index 9
[2020-06-21 03:41] LABS: Total Cells Counted 100
[2020-06-21 03:42] LABS: RBC Morphology Normal
[2020-06-21 08:30] VITALS: BP 126/77
--- NOTE | 2020-06-21 08:37 | Emergency Department Report ---
ED Chest Pain HPI - General Chief Complaint: Chest Pain Stated Complaint: CHEST PAIN, SOB, DIZZINESS Time Seen by Provider: 06/21/20 08:34 Source: patient Mode of arrival: Ambulatory Limitations: No Limitations - History of Present Illness Initial Comments: This is a 59-year-old male who presents repeatedly to the emergency department without following up with his hide washer Dr. Rosa. I have personally seen him within the last several days. On that occasion he stated he went to [facility] to get beer to help alleviate his chest pain. He arrived in the state of intoxication. Apparently he has been in the waiting room for long enough to get 2 troponins. He is now stating that he has had "a little chest pain". He typically appears to describe brief or seconds duration chest pain. He is not really desiring to give me any detailed history. He states that the chest pain is apparently near his left shoulder and does not radiate. He had no associated nausea vomiting diaphoresis dizziness or cough. The patient presents as he usually does with his wheelchair and belongings. He is apparently in need of chronic case management. nitial Comments: This is a 59-year-old male with a history of alcohol abuse and apparent drug-se eking behavior with multiple visits to the emergency department for various pain related complaints to include recurrent chest pain. Today he states he went to the [facility] to get some beer because he thought it would help with his chest pain. This chest pain is nonpleuritic and nonradiating. He referred some shortness of breath. At the time of my encounter he is not complaining of substantial chest pain nor shortness of breath. The patient's presents with a distinct odor of alcohol. He states he drank 1 beer but threw most of it away. He appears to be somewhat intoxicated. He is in a very poor state of hygiene and presents with his wheelchair. He states that he is "partially homeless" but currently resides with his brother. I did review a 2020 cardiac catheterization report. The patient has a dilated cardiomyopathy with an EF of 40 to 50%. He had a 50% RCA lesion. He had lum inal irregularities in the right and left system. Dr. Rosa recommended medical management. The patient has never had a PCI. 10/11/19 Discharge Summary: Hospitalization Condition: Fair Pertinent studies: Stress thallium complete was abnormal. Results have been placed in the chart. Left heart catheterization normal coronaries Hospital course: Patient presents with midsternal chest pain. Appears to be costochondritis. Secondary to Chris himself in the wheelchair. Patient does have some reproducible chest pain that has resolved throughout hospital stay. Patient abnormal stress test left heart catheterization normal coronaries stable to discharge scheduled for follow-up with cardiology on October 20 and primary care physician in 7 days. Disposition: - TO HOME OR SELFCARE - Discharge Diagnoses (1) Costochondritis Status: Resolved Comment: Resolved NSAIDs PRN. (2) Abnormal thallium stress test Status: Acute Comment: Unremarkable left heart cardiac catheterization. (3) ETOH abuse Status: Acute Comment: Avoid drinking. Alcoholic anonymous. Counseling complete. (4) Alcoholism Status: Acute (5) GERD (gastroesophageal reflux disease) Status: Acute Qualifiers: Esophagitis presence: without esophagitis Qualified Code(s): K21.9 - Gastro-esophageal reflux disease without esophagitis Comment: Zegerid [id number]. Recurrent emergency depatment visits; last 06/13/20, per Dr. Parker: ED Chest Pain HPI - General Chief Complaint: Chest Pain Stated Complaint: CHEST PAINS ARM NUMBNESS Time Seen by Provider: 06/13/20 08:26 Source: patient Mode of arrival: Ambulatory Limitations: No Limitations - History of Present Illness Initial Comments: 59-year-old male, history of alcoholism, recurrent chest pain, cardiomyopathy, resents to ED with complaint of chest pain. Patient has been seen multiple times in our ED with same complaint. Patient states, "You already know what's going on. Same pain as always. I been in the waiting room all night. I didn't know y'all were so short staffed. I feel better now, I can go." Patient states his pain was left-sided, radiating to his left arm. States pain is currently resolved. He reported some cough and shortness of breath. Denies any current dyspnea. Patient denies any fever or chills. MD Complaint: chest pain MD Complaint: chest pain -: hour(s) Onset: during rest Pain Location: other (Left shoulder) Pain Radiation: none Severity: mild Severity scale (0 -10): 2 Quality: other (Hurting) Consistency: intermittent, now resolved Improves With: nothing Worsens With: nothing re: denies: nausea, vomting, diaphoresis Other Symptoms: denies: cough, fever, syncope - Related Data Previous Rx's Medication Instructions Recorded Last Taken Type predniSONE [Deltasone] 40 mg PO QDAY #10 tab 10/12/19 Unknown Rx Esomeprazole Magnesium [NexIUM] 40 mg PO QDAY #30 capsule. 10/18/19 Unknown Rx Aspirin 325 mg PO QDAY #30 tablet 10/23/19 Unknown Rx Metoprolol [Lopressor TAB] 25 mg PO BID #60 tablet 10/23/19 Unknown Rx Aspirin 325 mg PO QDAY #30 tablet 05/16/20 Unknown Rx Folic Acid [Folvite] 1 mg PO QDAY #30 tablet 05/16/20 Unknown Rx Metoprolol [Lopressor TAB] 25 mg PO BID #60 tablet 05/16/20 Unknown Rx Multivitamin with Folic Acid [[facility] 400 mcg PO QDAY #30 tablet 05/16/20 Unknown Rx One Daily Essential Tablet] Pantoprazole [Protonix TAB] 40 mg PO QDAY #30 tablet 05/16/20 Unknown Rx Pravastatin [Pravachol] 20 mg PO QHS #30 tablet 05/16/20 Unknown Rx Thiamine [Vitamin B-1] 100 mg PO QDAY #30 tablet 05/16/20 Unknown Rx Allergies Allergy/AdvReac Type Severity Reaction Status Date / Time No Known Allergies Allergy Verified 05/31/20 00:31 Heart Score - HEART Score History: Slightly suspicious EKG: Non-specific Age: 45-65 Risk factors: 1-2 risk factors Troponin: < normal limit HEART Score: 3 - EKG Read Time Time EKG Completed: 02:19 EKG Read Time: 02:29 - Critical Actions Critical Actions: 0-3 pts:0.9-1.7%risk of adverse cardiac event.Candidate for discharge ED Review of Systems ROS: Stated complaint: CHEST PAIN, SOB, DIZZINESS Other details as noted in HPI Constitutional: denies: chills, fever Eyes: denies: eye pain, vision change ENT: denies: ear pain, throat pain Respiratory: wheezing. denies: cough, shortness of breath Cardiovascular: chest pain. denies: palpitations Endocrine: no symptoms reported Gastrointestinal: denies: abdominal pain, nausea, diarrhea Genitourinary: denies: urgency, dysuria Musculoskeletal: denies: back pain Skin: denies: rash, lesions Neurological: denies: headache, weakness, paresthesias Psychiatric: denies: anxiety, depression Hematological/Lymphatic: denies: easy bleeding, easy bruising ED Past Medical Hx - Past Medical History Previous Medical History?: Yes Hx Hypertension: Yes Hx CVA: Yes (left) Hx Heart Attack/AMI: Yes Hx Congestive Heart Failure: No Hx Diabetes: No Hx Asthma: No Hx COPD: No Hx HIV: No Additional medical history: chronic pain in back, neck and L knee, ETOH abuse. herniated disc - Surgical History Past Surgical History?: Yes Additional Surgical History: Left Knee. skin graft to right hand - Social History Smoking Status: Never Smoker Substance Use Type: Alcohol - Medications Home Medications: Home Medications Medication Instructions Recorded Confirmed Last Taken Type predniSONE [Deltasone] 40 mg PO QDAY #10 tab 10/12/19 Unknown Rx Esomeprazole Magnesium [NexIUM] 40 mg PO QDAY #30 capsule. 10/18/19 Unknown Rx Aspirin 325 mg PO QDAY #30 tablet 10/23/19 Unknown Rx Metoprolol [Lopressor TAB] 25 mg PO BID #60 tablet 10/23/19 Unknown Rx Aspirin 325 mg PO QDAY #30 tablet 05/16/20 Unknown Rx Folic Acid [Folvite] 1 mg PO QDAY #30 tablet 05/16/20 Unknown Rx Metoprolol [Lopressor TAB] 25 mg PO BID #60 tablet 05/16/20 Unknown Rx Multivitamin with Folic Acid [[facility] 400 mcg PO QDAY #30 tablet 05/16/20 Unknown Rx One Daily Essential Tablet] Pantoprazole [Protonix TAB] 40 mg PO QDAY #30 tablet 05/16/20 Unknown Rx Pravastatin [Pravachol] 20 mg PO QHS #30 tablet 05/16/20 Unknown Rx Thiamine [Vitamin B-1] 100 mg PO QDAY #30 tablet 05/16/20 Unknown Rx ED Physical Exam - General Limitations: No Limitations, Physical Limitation General appearance: lethargic - Head Head exam: Present: atraumatic, normocephalic - Eye Eye exam: Absent: scleral icterus, conjunctival injection - ENT ENT exam: Present: mucous membranes moist - Neck Neck exam: Absent: tenderness, meningismus - Respiratory Respiratory exam: Present: normal lung sounds bilaterally - Cardiovascular Cardiovascular Exam: Present: regular rate, normal rhythm. Absent: systolic murmur - GI/Abdominal GI/Abdominal exam: Present: soft, normal bowel sounds. Absent: distended, tenderness, guarding - Extremities Exam Extremities exam: Present: calf tenderness, other - Back Exam Back exam: Present: other (Limited exam) - Neurological Exam Neurological exam: Present: other (No acute neurological change) - Psychiatric Psychiatric exam: Present: normal affect, flat affect - Skin Skin exam: Present: warm, dry, intact, normal color. Absent: rash ED Course Vital Signs 06/21/20 06/21/20 02:09 08:28 Temperature 97.8 F 98.2 F Pulse Rate 115 H 89 Respiratory 16 18 Rate Blood Pressure 128/94 Blood Pressure 126/77 [Right] O2 Sat by Pulse 96 100 Oximetry - Reevaluation(s) Reevaluation #1: I will again refer this patient to his hide washer Dr. Fernández as well as [facility]. I am going to request home health evaluation. 06/21/20 09:00 CHALO score - Chalo Score Age > 65: (0) No Aspirin use within the Past 7 Days: (0) No 3 or more CAD Risk Factors: (1) Yes 2 or more Angina events in past 24 hrs: (1) Yes Known CAD with more than 50% Stenosis: (0) No Elevated Cardiac Markers: (0) No ST Deviation Greater than 0.5mm: (0) No CHALO Score: 2 ED Medical Decision Making - Lab Data Result diagrams: 06/21/20 02:40 06/21/20 02:40 Laboratory Results - last 24 hr 06/21/20 06/21/20 06/21/20 02:40 02:40 05:19 WBC 3.3 L RBC 4.27 Hgb 12.5 Hct 37.7 MCV 88 MCH 29 MCHC 33 RDW 16.8 H Plt Count 164 Add Manual Diff Complete Total Counted 100 Seg Neutrophils % Medical Biller Seg Neuts % (Manual) 33.0 L Lymphocytes % (Manual) 52.0 H Monocytes % (Manual) 10.0 H Eosinophils % (Manual) 3.0 Basophils % (Manual) 2.0 H Nucleated RBC % Not Reportable Seg Neutrophils # Man 1.1 L Band Neutrophils # 0.0 Lymphocytes # (Manual) 1.7 Abs React Lymphs (Man) 0.0 Monocytes # (Manual) 0.3 Eosinophils # (Manual) 0.1 Basophils # (Manual) 0.1 Metamyelocytes # 0.0 Myelocytes # 0.0 Promyelocytes # 0.0 Blast Cells # 0.0 WBC Morphology Not Reportable Hypersegmented Neuts Not Reportable Hyposegmented Neuts Not Reportable Hypogranular Neuts Not Reportable Smudge Cells Not Reportable Toxic Granulation Not Reportable Toxic Vacuolation Not Reportable Dohle Bodies Not Reportable Pelger-Huet Anomaly Not Reportable Katie Rods Not Reportable Platelet Estimate Not Reportable Clumped Platelets Not Reportable Plt Clumps, EDTA Not Reportable Large Platelets Not Reportable Giant Platelets Not Reportable Platelet Satelliting Not Reportable Plt Morphology Comment Not Reportable RBC Morphology Normal Dimorphic RBCs Not Reportable Polychromasia Not Reportable Hypochromasia Not Reportable Poikilocytosis Not Reportable Anisocytosis Not Reportable Microcytosis Not Reportable Macrocytosis Not Reportable Spherocytes Not Reportable Pappenheimer Bodies Not Reportable Sickle Cells Not Reportable Target Cells Not Reportable Tear Drop Cells Not Reportable Ovalocytes Not Reportable Helmet Cells Not Reportable [place] Bodies Not Reportable [place] Rings Not Reportable Lisa Cells Not Reportable Bite Cells Not Reportable Crenated Cell Not Reportable Elliptocytes Not Reportable Acanthocytes (Spur) Not Reportable Rouleaux Not Reportable Hemoglobin C Crystals Not Reportable Schistocytes Not Reportable Malaria parasites Not Reportable Connor Bodies Not Reportable Hem Pathologist Commnt No Sodium 140 Potassium 3.8 Chloride 102.8 Carbon Dioxide 22 Anion Gap 19 BUN 9 Creatinine 0.8 Estimated GFR > 60 BUN/Creatinine Ratio 11 Glucose 93 Calcium 8.2 L Total Bilirubin 0.30 AST 95 H ALT 40 Alkaline Phosphatase 151 H Troponin T < 0.010 < 0.010 Total Protein 7.3 Albumin 4.4 Albumin/Globulin Ratio 1.5 - EKG Data -: EKG Interpreted by Mi EKG shows normal: sinus rhythm Rate: normal - EKG Data Interpretation: no acute changes, other (Consider old ASMI) Critical care attestation.: If time is entered above; I have spent that time in minutes in the direct care of this critically ill patient, excluding procedure time. ED Disposition Clinical Impression: Atypical chest pain Disposition: DC-01 TO HOME OR SELFCARE Is pt being admited?: No Does the pt Need Aspirin: No Condition: Stable Instructions: Nonspecific Chest Pain, Adult Additional Instructions: Follow-up with primary care and your hide washer. See referrals. I have ordered home health to see what they can do to help you at home if you are receptive to that. Referrals: PRIMARY CARE, [Primary Care Provider] - 3-5 Days Time of Disposition: 09:01
--- NOTE | 2020-06-22 11:35 | Electrocardiograph Report ---
[facility] Test Date: 2020-06-21 Test Time: 02:19:37 Pat Name: REBECCA ELIZABETH Department: Room: Gender: M [employer] Director: MELISSA : 1960 Requested By: GARY CHOWDARY Order Number: [id number] Reading MD: Deena Langston Measurements Intervals [place] Rate: 91 P: 74 MN: 221 QRS: 26 QRSD: 93 T: 52 QT: 375 QTc: 462 Interpretive Statements Sinus rhythm Prolonged MN interval Probable left atrial enlargement Probable anteroseptal infarct, old Compared to ECG 06/17/2020 04:03:30 No significant changes Electronically Signed On 06-22-2020 11:35:28 EDT by Deena Langston
== END 2020-06-21 10:35 | disposition home or self-care (01) ==
LOC: ED 00:33
DX: R07.89 Other chest pain (principal); I25.2 Old myocardial infarction; I10 Essential (primary) hypertension; Z98.890 Other specified postprocedural states; Z79.899 Other long term (current) drug therapy; Z86.73 Personal history of transient ischemic attack (TIA), and cerebral infarction without residual deficits
CPT/HCPCS: 36415; 71045; 80053; 84484; 85007; 85025; 93005

== ENCOUNTER 2020-06-24 23:34 | Emergency (ER) | payer MEDICAID ==
[2020-06-25] MEDS ORDERED: ACETAMINOPHEN 500 MG TAB PO ONE (03:52)
[2020-06-25] MEDS ORDERED: ASPIRIN 325 MG TAB PO ONE (03:52)
--- NOTE | 2020-06-25 04:13 | XRay Report ---
CHEST 1 VIEW INDICATION: dyspnea. COMPARISON: 06/21/2020 FINDINGS: SUPPORT DEVICES: None. HEART: Within normal limits. LUNGS/PLEURA: No acute air space or interstitial disease. ADDITIONAL FINDINGS: None. IMPRESSION: 1. No acute findings. Signer Name: Geoffrey Jacob MD Signed: 06/25/2020 4:08 AM Workstation Name: [id number]
[2020-06-25 04:57] LABS: Hematocrit 36.7 % (35.5-45.6); Hemoglobin 12.1 gm/dl (11.8-15.2); Mean Corpuscular HGB Conc 33 % (32-34); Mean Corpuscular Volume 90 fl (84-94); Red Blood Count 4.09 M/mm3 (3.65-5.03); Red Cell Distribution Width 16.8 % (13.2-15.2)
[2020-06-25 05:05] LABS: Platelet Count 97 K/mm3 (140-440)
[2020-06-25 05:06] LABS: Basophils % (Auto) 1.3 % (0.0-1.8); Eosinophils # (Auto) 0.1 K/mm3 (0.0-0.4); Eosinophils % (Auto) 3.3 % (0.0-4.3); Lymphocytes # (Auto) 1.4 K/mm3 (1.2-5.4); Monocytes # (Auto) 0.3 K/mm3 (0.0-0.8); Monocytes % (Auto) 13.5 % (0.0-7.3)
[2020-06-25 05:19] LABS: Alanine Aminotransferase 44 units/L (7-56); Albumin 4.2 g/dL (3.9-5); Blood Urea Nitrogen 8 mg/dL (9-20); Calcium 8.6 mg/dL (8.4-10.2); Hemolysis Index 1
[2020-06-25 05:26] LABS: BUN/Creatinine Ratio 11
--- NOTE | 2020-06-25 05:51 | Emergency Department Report ---
ED General Adult HPI - General Chief complaint: Dyspnea/Respdistress Stated complaint: SOB/BACK PAIN Source: patient Mode of arrival: Ambulatory Limitations: Physical Limitation - History of Present Illness Initial comments: Patient is a 59-year-old -[place]ub[place] male with a history of hypertension, CAD s/p ID and CVA, chronic low back pain, chronic alcohol abuse and chronic lumbar disc disease who presents to the ED with complaint of persistent worsening low back pain for the last 2 weeks, worse in the last 2 days. Patient states that he is on his feet most of the time walking around because he is homeless. Patient also states that he has been experiencing persistent shortness of breath on exertion. Patient states that his pain is consistent with his chronic low back pain with constant exacerbations. Patient also states that his shortness of breath is not new since he is always pushing heavy luggage around as he walks on the streets. Patient denies dizziness, syncope, fever, chills, cough, fall, traumatic injury, heavy lifting, chest pain, abdominal pain, numbness and tingling or weakness of lower extremities bilaterally, change in vision, urinary or bowel incontinence, dysuria, diarrhea or diaphoresis and neck pain. MD Complaint: Chronic low back pain, chronic dyspnea -: Gradual, year(s) (12) Location: chest Radiation: non-radiation Severity scale (0 -10): 6 Quality: aching, sharp Consistency: constant Improves with: none Worsens with: medication Associated Symptoms: denies other symptoms, shortness of breath. denies: confusion, chest pain, cough, diaphoresis, fever/chills, headaches, loss of appetite, malaise, nausea/vomiting, rash, seizure, syncope, weakness Treatments Prior to Arrival: none - Related Data Previous Rx's Medication Instructions Recorded Last Taken Type Esomeprazole Magnesium [NexIUM] 40 mg PO QDAY #30 capsule. 10/18/19 Unknown Rx Aspirin 325 mg PO QDAY #30 tablet 10/23/19 Unknown Rx Metoprolol [Lopressor TAB] 25 mg PO BID #60 tablet 10/23/19 Unknown Rx Aspirin 325 mg PO QDAY #30 tablet 05/16/20 Unknown Rx Folic Acid [Folvite] 1 mg PO QDAY #30 tablet 05/16/20 Unknown Rx Metoprolol [Lopressor TAB] 25 mg PO BID #60 tablet 05/16/20 Unknown Rx Multivitamin with Folic Acid [Cvs 400 mcg PO QDAY #30 tablet 05/16/20 Unknown Rx One Daily Essential Tablet] Pantoprazole [Protonix TAB] 40 mg PO QDAY #30 tablet 05/16/20 Unknown Rx Pravastatin [Pravachol] 20 mg PO QHS #30 tablet 05/16/20 Unknown Rx Thiamine [Vitamin B-1] 100 mg PO QDAY #30 tablet 05/16/20 Unknown Rx Baclofen 20 mg PO Q12H PRN #20 tablet 06/25/20 Unknown Rx predniSONE [Deltasone] 40 mg PO QDAY #10 tab 06/25/20 Unknown Rx Allergies Allergy/AdvReac Type Severity Reaction Status Date / Time No Known Allergies Allergy Verified 05/31/20 00:31 ED Review of Systems ROS: Stated complaint: SOB/BACK PAIN Other details as noted in HPI Constitutional: denies: chills, fever Eyes: denies: eye pain, eye discharge, vision change ENT: denies: ear pain, throat pain Respiratory: SOB with exertion. denies: cough, shortness of breath, wheezing Cardiovascular: denies: chest pain, palpitations Endocrine: no symptoms reported Gastrointestinal: denies: abdominal pain, nausea, diarrhea Genitourinary: denies: urgency, dysuria Musculoskeletal: back pain (Low back pain), arthralgia (Chronic low back pain). denies: joint swelling Skin: denies: rash, lesions Neurological: denies: headache, weakness, paresthesias Psychiatric: denies: anxiety, depression Hematological/Lymphatic: denies: easy bleeding, easy bruising ED Past Medical Hx - Past Medical History Hx Hypertension: Yes Hx CVA: Yes (left) Hx Heart Attack/AMI: Yes Hx Congestive Heart Failure: No Hx Diabetes: No Hx Asthma: No Hx COPD: No Hx HIV: No Additional medical history: chronic pain in back, neck and L knee, ETOH abuse. herniated disc - Surgical History Additional Surgical History: Left Knee. skin graft to right hand - Social History Smoking Status: Never Smoker Substance Use Type: None - Medications Home Medications: Home Medications Medication Instructions Recorded Confirmed Last Taken Type Esomeprazole Magnesium [NexIUM] 40 mg PO QDAY #30 capsule. 10/18/19 Unknown Rx Aspirin 325 mg PO QDAY #30 tablet 10/23/19 Unknown Rx Metoprolol [Lopressor TAB] 25 mg PO BID #60 tablet 10/23/19 Unknown Rx Aspirin 325 mg PO QDAY #30 tablet 05/16/20 Unknown Rx Folic Acid [Folvite] 1 mg PO QDAY #30 tablet 05/16/20 Unknown Rx Metoprolol [Lopressor TAB] 25 mg PO BID #60 tablet 05/16/20 Unknown Rx Multivitamin with Folic Acid [[facility]vs 400 mcg PO QDAY #30 tablet 05/16/20 Unknown Rx One Daily Essential Tablet] Pantoprazole [Protonix TAB] 40 mg PO QDAY #30 tablet 05/16/20 Unknown Rx Pravastatin [Pravachol] 20 mg PO QHS #30 tablet 05/16/20 Unknown Rx Thiamine [Vitamin B-1] 100 mg PO QDAY #30 tablet 05/16/20 Unknown Rx Baclofen 20 mg PO Q12H PRN #20 tablet 06/25/20 Unknown Rx predniSONE [Deltasone] 40 mg PO QDAY #10 tab 06/25/20 Unknown Rx ED Physical Exam - General Limitations: Physical Limitation General appearance: alert, in no apparent distress - Head Head exam: Present: atraumatic, normocephalic, normal inspection - Eye Eye exam: Present: normal appearance, PERRL, EOMI Pupils: Present: normal accommodation - ENT ENT exam: Present: normal exam, normal orophraynx, mucous membranes moist, TM's normal bilaterally, normal external ear exam - Neck Neck exam: Present: normal inspection, full ROM - Respiratory Respiratory exam: Present: normal lung sounds bilaterally. Absent: respiratory distress, wheezes, rhonchi, stridor, chest wall tenderness, accessory muscle use, decreased breath sounds, prolonged expiratory - Cardiovascular Cardiovascular Exam: Present: regular rate, normal rhythm, normal heart sounds. Absent: systolic murmur, diastolic murmur, rubs, gallop - GI/Abdominal GI/Abdominal exam: Present: soft, normal bowel sounds. Absent: tenderness, rebound, hyperactive bowel sounds, hypoactive bowel sounds, organomegaly - Extremities Exam Extremities exam: Present: normal inspection, full ROM, normal capillary refill - Back Exam Back exam: Present: normal inspection, full ROM, tenderness (Palpable lumbosacral paraspinal musculoskeletal tenderness), muscle spasm, paraspinal tenderness. Absent: CVA tenderness (L) - Neurological Exam Neurological exam: Present: alert, oriented X3, CN II-XII intact, normal gait, reflexes normal - Psychiatric Psychiatric exam: Present: normal affect, normal mood - Skin Skin exam: Present: warm, dry, intact, normal color. Absent: rash ED Course Vital Signs 06/25/20 00:32 Temperature 98.2 F Pulse Rate 97 H Respiratory 18 Rate Blood Pressure 127/83 O2 Sat by Pulse 94 Oximetry ED Medical Decision Making - Lab Data Result diagrams: 06/25/20 04:15 06/25/20 04:15 - Radiology Data [facility] [address] [place] [address] XRay Report Signed Patient: REBECCA ELIZABETH MR#: [id number] : 1960 A cct:[id number] Age/Sex: 59 / M ADM Date: 06/24/20 Loc: ED Attending Dr: Ordering Physician: MERVAT ANGEL Date of Service: 06/25/20 Procedure(s): XR chest 1V ap Accession Number(s): [id number] cc: MERVAT ANGEL Fluoro Time In Minutes: CHEST 1 VIEW INDICATION: dyspnea. COMPARISON: 06/21/2020 FINDINGS: SUPPORT DEVICES: None. HEART: Within normal limits. LUNGS/PLEURA: No acute air space or interstitial disease. ADDITIONAL FINDINGS: None. IMPRESSION: 1. No acute findings. Signer Name: Geoffrey Jacob MD Signed: 06/25/2020 4:08 AM Workstation Name: [id number] Transcribed By: JW Dictated By: Geoffrey Jacob MD Electronically Authenticated By: Geoffrey Jacob MD Signed Date/Time: 06/25/20407 DD/ 7 TD/TT: Print Cancel - Medical Decision Making This is a 59-year-old -Cuban male with a history of hypertension, CAD s/p ID and CVA, chronic low back pain, chronic alcohol abuse and chronic lumbar disc disease who presents to the ED with complaint of persistent worsening low back pain for the last 2 weeks, worse in the last 2 days. Patient states that he is on his feet most of the time walking around because he is homeless. P atient also states that he has been experiencing persistent shortness of breath on exertion. Patient states that his pain is consistent with his chronic low back pain with constant exacerbations. Patient also states that his shortness of breath is not new since he is always pushing heavy luggage around as he walks on the streets. In the ED, patient is alert and oriented x3 and is not in any distress. Patient was treated for pain in the ED and lab test results were reviewed and are all nonactionable including troponin levels. Patient has been in this ED multiple times in the last 2 weeks with the same complaints and has been extensively worked up and each time all lab test results including initial and repeat troponin levels have been normal. Patient symptoms are chronic and his lab test results have not changed from the previous visits in the last 1 or 2 weeks. Chest x-ray showed no acute cardiopulmonary abnormalities or pneumonitis. Patient was therefore discharged home on muscle relaxants and advised to follow-up with his primary care physician in 3 to 5 days for reevaluation or return to the ED immediately if symptoms get worse. - Differential Diagnosis chronic pain; Pneumonia; ACS;; Muscle spasm; Critical care attestation.: If time is entered above; I have spent that time in minutes in the direct care of this critically ill patient, excluding procedure time. ED Disposition Clinical Impression: Acute exacerbation of chronic low back pain, Shortness of breath Disposition: DC-01 TO HOME OR SELFCARE Is pt being admited?: No Does the pt Need Aspirin: No Condition: Stable Instructions: Chronic Back Pain, [id number], Chronic Back Pain, Shortness of Breath, Adult, [id number] Additional Instructions: All lab test results were reviewed and are all nonactionable. Your chronic low back pain is due to muscle spasm and chronic degenerative lumbar disc disease. Therefore take medication as needed for pain, drink plenty of fluids and follow- up with your primary care physician in 5 to 7 days for reevaluation or return to the ED immediately if symptoms get worse. Prescriptions: Baclofen 20 mg PO Q12H PRN #20 tablet PRN Reason: Muscle Spasm predniSONE [Deltasone] 40 mg PO QDAY #10 tab Referrals: [facility] [Provider Group] - 3-5 Days Time of Disposition: 05:51 Print Language: TURKMEN
[2020-06-25 06:49] VITALS: BP 124/74
== END 2020-06-25 06:51 | disposition home or self-care (01) ==
LOC: ED 23:34
DX: M54.5 Low back pain (principal); R06.02 Shortness of breath; I10 Essential (primary) hypertension; I25.2 Old myocardial infarction; Z98.890 Other specified postprocedural states; Z79.899 Other long term (current) drug therapy
CPT/HCPCS: 36415; 71045; 80053; 84484; 85025

== ENCOUNTER 2020-07-06 00:10 | Emergency (ER) | payer MEDICAID ==
[2020-07-06 00:19] VITALS: BP 131/86
--- NOTE | 2020-07-06 01:18 | XRay Report ---
CHEST 2 VIEWS INDICATION / CLINICAL INFORMATION: TANVI. COMPARISON: 06/25/20. FINDINGS: SUPPORT DEVICES: None. HEART / MEDIASTINUM: The heart size and pulmonary vasculature are normal. LUNGS / PLEURA: No significant pulmonary or pleural abnormality. No pneumothorax. ADDITIONAL FINDINGS: No significant additional findings. IMPRESSION: No acute abnormality or significant change. Signer Name: Dany Laboy MD Signed: 07/06/2020 1:14 AM Workstation Name: [id number]
--- NOTE | 2020-07-06 07:48 | Emergency Department Report ---
HPI - General Chief Complaint: Dyspnea/Respdistress Time Seen by Provider: 07/06/20 07:34 - HPI HPI: Room 21 The patient is a 59-year-old male present with a chief complaint of shortness of breath and back pain. The patient states he came to the emergency department because for the past 2 days he has had shortness of breath/dyspnea on exertion and dizziness. Patient states whenever he exerts himself he gets short of breath and has to stop and catch his breath and his symptoms improved. Patient denies palpitations or chest pain with these events. Patient admits to an occasional cough productive of white sputum. Patient denies lower extremity edema or history of fever. Patient also complains of chronic back pain from previously diagnosed disc herniation ED Past Medical Hx - Past Medical History Previous Medical History?: Yes Hx Hypertension: Yes Hx CVA: Yes (left) Hx Heart Attack/AMI: Yes Additional medical history: chronic pain in back, neck and L knee, ETOH abuse. herniated disc - Surgical History Past Surgical History?: Yes Additional Surgical History: Left Knee. skin graft to right hand, left hip surgery - Family History Family history: no significant - Social History Smoking Status: Never Smoker Substance Use Type: None (Denies illicit drug use), Alcohol (Rarely) - Medications Home Medications: Home Medications Medication Instructions Recorded Confirmed Last Taken Type Esomeprazole Magnesium [NexIUM] 40 mg PO QDAY #30 capsule. 10/18/19 Unknown Rx Aspirin 325 mg PO QDAY #30 tablet 10/23/19 Unknown Rx Metoprolol [Lopressor TAB] 25 mg PO BID #60 tablet 10/23/19 Unknown Rx Aspirin 325 mg PO QDAY #30 tablet 05/16/20 Unknown Rx Folic Acid [Folvite] 1 mg PO QDAY #30 tablet 05/16/20 Unknown Rx Metoprolol [Lopressor TAB] 25 mg PO BID #60 tablet 05/16/20 Unknown Rx Multivitamin with Folic Acid [Cvs 400 mcg PO QDAY #30 tablet 05/16/20 Unknown Rx One Daily Essential Tablet] Pantoprazole [Protonix TAB] 40 mg PO QDAY #30 tablet 05/16/20 Unknown Rx Pravastatin [Pravachol] 20 mg PO QHS #30 tablet 05/16/20 Unknown Rx Thiamine [Vitamin B-1] 100 mg PO QDAY #30 tablet 05/16/20 Unknown Rx Baclofen 20 mg PO Q12H PRN #20 tablet 06/25/20 Unknown Rx predniSONE [Deltasone] 40 mg PO QDAY #10 tab 06/25/20 Unknown Rx ED Review of Systems ROS: Stated complaint: ABD PAIN Other details as noted in HPI Constitutional: denies: fever Eyes: denies: eye pain ENT: denies: throat pain Respiratory: cough, shortness of breath, SOB with exertion Cardiovascular: dyspnea on exertion. denies: chest pain, palpitations Endocrine: no symptoms reported Gastrointestinal: denies: abdominal pain Genitourinary: denies: dysuria Musculoskeletal: denies: back pain Neurological: denies: headache Physical Exam - Physical Exam Vital Signs: Vital Signs 07/06/20 00:15 Temperature 98.3 F Pulse Rate 110 H Respiratory 18 Rate Blood Pressure 131/86 O2 Sat by Pulse 97 Oximetry Physical Exam: GENERAL: The patient is well-developed well-nourished male lying on stretcher not appearing to be in acute distress. [] HEENT: Normocephalic. Atraumatic. Extraocular motions are intact. Patient has moist mucous membranes. NECK: Supple. Trachea midline CHEST/LUNGS: Clear to auscultation. There is no respiratory distress noted. HEART/CARDIOVASCULAR: Regular. There is no tachycardia. There is no gallop rub or murmur. ABDOMEN: Abdomen is soft, nontender. Patient has normal bowel sounds. There is no abdominal distention. SKIN: There is no rash. There is trace pedal edema. There is no diaphoresis. NEURO: The patient is awake, alert, and oriented. The patient is cooperative. The patient has no focal neurologic deficits. The patient has normal speech MUSCULOSKELETAL: There is no evidence of acute injury. ED Course Vital Signs 07/06/20 00:15 Temperature 98.3 F Pulse Rate 110 H Respiratory 18 Rate Blood Pressure 131/86 O2 Sat by Pulse 97 Oximetry ED Medical Decision Making - Lab Data Result diagrams: 07/06/20 08:03 07/06/20 08:03 Laboratory Results - last 24 hr 07/06/20 07/06/20 07/06/20 08:03 08:03 08:03 WBC 2.5 L RBC 4.23 Hgb 12.5 Hct 37.8 MCV 90 MCH 30 MCHC 33 RDW 16.5 H Plt Count 70 L Kay % (Auto) [employer] Seg Neutrophils % [employer] D-Dimer 277.95 H Sodium 137 Potassium 4.0 Chloride 100.1 Carbon Dioxide 21 L Anion Gap 20 BUN 6 L Creatinine 0.7 L Estimated GFR > 60 BUN/Creatinine Ratio 9 Glucose 98 Calcium 8.3 L Total Creatine Kinase 226 H CK-MB (CK-2) 3.4 CK-MB (CK-2) Rel Index 1.5 Troponin T < 0.010 NT-Pro-B Natriuret Pep 23.00 - Medical Decision Making Patient refusing further work-up. I explained how his D-dimer was elevated so that we need to perform a CT scan to rule out a PE. Patient verbalized understanding but states he does not wish to undergo further testing. Patient states he would like to leave the hospital AGAINST MEDICAL ADVICE. Patient advised if he changes his mind he should return immediately. Patient verbalized understanding of possible increased morbidity and/or mortality should he leave the hospital AGAINST MEDICAL ADVICE - Differential Diagnosis CHF, PE, bronchitis, anemia Critical care attestation.: If time is entered above; I have spent that time in minutes in the direct care of this critically ill patient, excluding procedure time. ED Disposition Clinical Impression: Shortness of breath, Dizziness Disposition: DC-07 LEFT AGAINST MED ADVICE Is pt being admited?: No Does the pt Need Aspirin: No Condition: Undetermined Referrals: PRIMARY CARE, [Primary Care Provider] - 3-5 Days Time of Disposition: 10:20 (Patient leaving AMA)
[2020-07-06 08:40] LABS: Hematocrit 37.8 % (35.5-45.6); Hemoglobin 12.5 gm/dl (11.8-15.2); Mean Corpuscular HGB Conc 33 % (32-34); Mean Corpuscular Volume 90 fl (84-94); Red Blood Count 4.23 M/mm3 (3.65-5.03); Red Cell Distribution Width 16.5 % (13.2-15.2)
[2020-07-06 08:49] LABS: Platelet Count 70 K/mm3 (140-440)
[2020-07-06 09:03] LABS: Creatine Kinase MB 3.4 ng/mL (0.0-4.0)
[2020-07-06 09:09] LABS: Blood Urea Nitrogen 6 mg/dL (9-20); Calcium 8.3 mg/dL (8.4-10.2); Hemolysis Index 29
[2020-07-06] MEDS ORDERED: HYDROcodone/ACETAMINOPHEN 5-325 MG TAB PO ONE (09:22)
[2020-07-06 09:33] LABS: BUN/Creatinine Ratio 9
[2020-07-06 14:25] LABS: Total Cells Counted 100
[2020-07-06 14:27] LABS: Platelet Estimate Consistent w Auto; RBC Morphology Normal
== END 2020-07-06 11:15 | disposition left against medical advice (07) ==
LOC: ED 00:10
DX: R06.02 Shortness of breath (principal); R42 Dizziness and giddiness; I10 Essential (primary) hypertension; I25.2 Old myocardial infarction; Z98.890 Other specified postprocedural states; Z79.899 Other long term (current) drug therapy
CPT/HCPCS: 36415; 71046; 80048; 82550; 82553; 83880; 84484; 85007; 85025; 85379

== ENCOUNTER 2020-07-09 00:53 | Emergency (ER) | payer MEDICAID ==
[2020-07-09] MEDS ORDERED: ASPIRIN 325 MG TAB PO ONE ×2 (03:38→08:28)
[2020-07-09 04:35] LABS: Hematocrit 39.5 % (35.5-45.6); Hemoglobin 13.3 gm/dl (11.8-15.2); Mean Corpuscular HGB Conc 34 % (32-34); Mean Corpuscular Volume 89 fl (84-94); Red Blood Count 4.43 M/mm3 (3.65-5.03); Red Cell Distribution Width 16.5 % (13.2-15.2)
--- NOTE | 2020-07-09 04:35 | XRay Report ---
CHEST 2 VIEWS INDICATION / CLINICAL INFORMATION: chestpain. COMPARISON: Chest radiograph 07/06/2020 FINDINGS: SUPPORT DEVICES: None. HEART / MEDIASTINUM: No significant abnormality. LUNGS / PLEURA: No significant pulmonary or pleural abnormality. No pneumothorax. ADDITIONAL FINDINGS: No significant additional findings. IMPRESSION: 1. No acute findings. Signer Name: Tia Erazo MD Signed: 07/09/2020 4:30 AM Workstation Name: [id number]
[2020-07-09 05:11] LABS: Platelet Count 80 K/mm3 (140-440)
[2020-07-09 05:12] LABS: Basophils % (Auto) 1.2 % (0.0-1.8); Eosinophils # (Auto) 0.1 K/mm3 (0.0-0.4); Eosinophils % (Auto) 2.6 % (0.0-4.3); Lymphocytes # (Auto) 1.7 K/mm3 (1.2-5.4); Lymphocytes % (Auto) 57.9 % (13.4-35.0); Monocytes # (Auto) 0.1 K/mm3 (0.0-0.8); Monocytes % (Auto) 15.4 % (0.0-7.3)
[2020-07-09 05:53] LABS: Alanine Aminotransferase 88 units/L (7-56); Albumin 4.7 g/dL (3.9-5); Blood Urea Nitrogen 6 mg/dL (9-20); Calcium 8.6 mg/dL (8.4-10.2); Hemolysis Index 0
[2020-07-09 05:54] LABS: BUN/Creatinine Ratio 9
--- NOTE | 2020-07-09 08:31 | Emergency Department Report ---
ED Chest Pain HPI - General Chief Complaint: Chest Pain Stated Complaint: CHEST PAIN Time Seen by Provider: 07/09/20 08:08 Source: patient Mode of arrival: Ambulatory Limitations: No Limitations - History of Present Illness Initial Comments: This is a 59-year-old -[place] male, who is well-known to both myself and his department, who presents to the emergency department with complaint of some midsternal chest discomfort that has been going on for the past few days. Patient has a past medical history of previous CVA, coronary artery disease with previous [place], hypertension, chronic musculoskeletal pains, recurrent chest pains, and chronic alcohol abuse/dependence. This patient has had 5-6 visits over the past month for various complaints including chest pain, shortness of breath, back pain. I reviewed the patient's cardiac catheterization that was done in October 2019 that shows dilated nonischemic cardiomyopathy with an EF of 40-50%, and mild CAD (50% RCA [place]) that was treated medically. Initially, through triage, the patient says that his chest pain was 5 out of 10 in intensity. At the time of my initial examination, once the patient came back to room #6, the patient is sleeping and/or resting comfortably. He is easily arousable and says "I am just chilling." Severity scale (0 -10): 10 - Related Data Previous Rx's Medication Instructions Recorded Last Taken Type Esomeprazole Magnesium [NexIUM] 40 mg PO QDAY #30 capsule. 10/18/19 Unknown Rx Aspirin 325 mg PO QDAY #30 tablet 10/23/19 Unknown Rx Metoprolol [Lopressor TAB] 25 mg PO BID #60 tablet 10/23/19 Unknown Rx Aspirin 325 mg PO QDAY #30 tablet 05/16/20 Unknown Rx Folic Acid [Folvite] 1 mg PO QDAY #30 tablet 05/16/20 Unknown Rx Metoprolol [Lopressor TAB] 25 mg PO BID #60 tablet 05/16/20 Unknown Rx Multivitamin with Folic Acid [[facility] 400 mcg PO QDAY #30 tablet 05/16/20 Unknown Rx One Daily Essential Tablet] Pantoprazole [Protonix TAB] 40 mg PO QDAY #30 tablet 05/16/20 Unknown Rx Pravastatin [Pravachol] 20 mg PO QHS #30 tablet 05/16/20 Unknown Rx Thiamine [Vitamin B-1] 100 mg PO QDAY #30 tablet 05/16/20 Unknown Rx Baclofen 20 mg PO Q12H PRN #20 tablet 06/25/20 Unknown Rx predniSONE [Deltasone] 40 mg PO QDAY #10 tab 06/25/20 Unknown Rx Allergies Allergy/AdvReac Type Severity Reaction Status Date / Time No Known Allergies Allergy Verified 05/31/20 00:31 Heart Score - HEART Score History: Slightly suspicious EKG: Normal Age: 45-65 Risk factors: > 3 risk factors or hx of atherosclerotic disease Troponin: < normal limit HEART Score: 3 - EKG Read Time Time EKG Completed: 03:11 EKG Read Time: 03:17 - Critical Actions Critical Actions: 0-3 pts:0.9-1.7%risk of adverse cardiac event.Candidate for discharge ED Review of Systems ROS: Stated complaint: CHEST PAIN Other details as noted in HPI Comment: All other systems reviewed and negative Constitutional: denies: chills, fever Eyes: denies: eye pain, vision change ENT: denies: ear pain, throat pain Respiratory: shortness of breath. denies: cough, wheezing Cardiovascular: chest pain. denies: palpitations, edema Gastrointestinal: denies: abdominal pain, vomiting Genitourinary: denies: dysuria, discharge Musculoskeletal: denies: back pain, arthralgia Skin: denies: rash, lesions Neurological: denies: headache, weakness ED Past Medical Hx - Past Medical History Previous Medical History?: Yes Hx Hypertension: Yes Hx CVA: Yes (left) Hx Heart Attack/AMI: Yes Hx Congestive Heart Failure: No Hx Diabetes: No Hx Asthma: No Hx COPD: No Hx HIV: No Additional medical history: chronic pain in back, neck and L knee, ETOH abuse. herniated disc - Surgical History Past Surgical History?: Yes Additional Surgical History: Left Knee. skin graft to right hand, left hip surgery - Social History Smoking Status: Never Smoker Substance Use Type: Alcohol - Medications Home Medications: Home Medications Medication Instructions Recorded Confirmed Last Taken Type Esomeprazole Magnesium [NexIUM] 40 mg PO QDAY #30 capsule. 10/18/19 Unknown Rx Aspirin 325 mg PO QDAY #30 tablet 10/23/19 Unknown Rx Metoprolol [Lopressor TAB] 25 mg PO BID #60 tablet 10/23/19 Unknown Rx Aspirin 325 mg PO QDAY #30 tablet 05/16/20 Unknown Rx Folic Acid [Folvite] 1 mg PO QDAY #30 tablet 05/16/20 Unknown Rx Metoprolol [Lopressor TAB] 25 mg PO BID #60 tablet 05/16/20 Unknown Rx Multivitamin with Folic Acid [[facility] 400 mcg PO QDAY #30 tablet 05/16/20 Unknown Rx One Daily Essential Tablet] Pantoprazole [Protonix TAB] 40 mg PO QDAY #30 tablet 05/16/20 Unknown Rx Pravastatin [Pravachol] 20 mg PO QHS #30 tablet 05/16/20 Unknown Rx Thiamine [Vitamin B-1] 100 mg PO QDAY #30 tablet 05/16/20 Unknown Rx Baclofen 20 mg PO Q12H PRN #20 tablet 06/25/20 Unknown Rx predniSONE [Deltasone] 40 mg PO QDAY #10 tab 06/25/20 Unknown Rx ED Physical Exam - General Limitations: No Limitations - Other Other exam information: GENERAL: The patient is well-developed well-nourished. HENT: Normocephalic. Atraumatic. Patient has moist mucous membranes. EYES: Extraocular motions are intact. NECK: Supple. Trachea is midline. CHEST/LUNGS: Clear to auscultation. There is no respiratory distress noted. HEART/CARDIOVASCULAR: Regular. There is no tachycardia. There is no murmur. ABDOMEN: Abdomen is soft, nontender. Patient has normal bowel sounds. There is no abdominal distention. SKIN: Skin is warm and dry. NEURO: The patient is awake, alert, and cooperative. The patient has no focal neurologic deficits. Normal speech. MUSCULOSKELETAL: There is no tenderness or deformity. There is no limitation range of motion. ED Course Vital Signs 07/09/20 07/09/20 07/09/20 03:05 03:36 08:05 Temperature 98 F 97.8 F Pulse Rate 102 H 88 Respiratory 18 20 Rate Blood Pressure 111/85 126/87 Blood Pressure [Left] O2 Sat by Pulse 96 99 Oximetry 07/09/20 07/09/20 07/09/20 08:36 08:38 09:00 Temperature Pulse Rate 88 89 98 H Respiratory 14 20 15 Rate Blood Pressure 134/86 Blood Pressure 128/93 [Left] O2 Sat by Pulse 100 97 Oximetry 07/09/20 09:30 Temperature Pulse Rate Respiratory 13 Rate Blood Pressure 134/86 Blood Pressure [Left] O2 Sat by Pulse 94 Oximetry MERT score - Mert Score Age > 65: (0) No Aspirin use within the Past 7 Days: (0) No 3 or more CAD Risk Factors: (1) Yes 2 or more Angina events in past 24 hrs: (1) Yes Known CAD with more than 50% Stenosis: (0) No Elevated Cardiac Markers: (0) No ST Deviation Greater than 0.5mm: (0) No MERT Score: 2 ED Medical Decision Making - Lab Data Result diagrams: 07/09/20 04:13 07/09/20 04:13 - EKG Data -: EKG Interpreted by Me EKG shows normal: sinus rhythm, axis, intervals (Prolonged IN interval), QRS complexes (Q waves to the septal leads), ST-T waves Rate: normal - EKG Data When compared to previous EKG there are: no significant change Interpretation: unchanged when compared t (07/06/20) 07/09/20 08:55 Repeat EKG was done at 8:38 AM. This was interpreted by me. Sinus rhythm, normal axis, rate of 91 bpm. Prolonged IN interval. Q waves to the septal leads. No ST elevation [place]. - Radiology Data Radiology results: image reviewed interpreted by me: Chest x-ray does not show any acute process. There are no pleural effusions, obvious pneumonia and there is no pneumothorax. No significant cardiomegaly. - Medical Decision Making This patient presents to the emergency department complaint of some generalized chest discomfort. EKG does not have any morphology consistent with ST elevation myocardial infarction. Chest x-ray does not show any pneumonia, pleural effusions, pneumothorax, or any other acute process. On examination heart and lung sounds are normal to auscultation. The patient does not appear in any respiratory or acute distress. The patient is seen sleeping and/or resting comfortably throughout most of his ED course. He had a cardiac catheterization done in October of last year that showed some nonischemic cardiomyopathy without any significant coronary artery lesions or stenosis. Patient's labs have been mostly unremarkable including CBC, metabolic panel and negative troponins x2. Vital signs have been reassuring throughout his ED course. For all these reasons the patient appears safe for discharge home at this time. He has been instructed to follow-up with primary care and cardiology. He will return to the emergency department with any worsening of his symptoms or with any acute distress. Critical Care Time: No Critical care attestation.: If time is entered above; I have spent that time in minutes in the direct care of this critically ill patient, excluding procedure time. ED Disposition Clinical Impression: Atypical chest pain Disposition: TO HOME OR SELFCARE Is pt being admited?: No Condition: Stable Instructions: Nonspecific Chest Pain, Adult Additional Instructions: Please follow-up with a primary care physician in the next few days. I have given you a referral for a local knitting machine tender, Dr. Langston, to follow-up regarding your recurrent chest pains. Return to the emergency department with any worsening of your symptoms, new or concerning symptoms not addressed during this current emergency department visit, or with any acute distress. Referrals: EDY LAYNE MD [Primary Care Provider] - 2-3 Days LIBAN LANGSTON MD [Staff Physician] - 2-3 Days [facility] [Provider Group] - 2-3 Days Time of Disposition: 09:33
[2020-07-09 10:05] VITALS: BP 134/86
--- NOTE | 2020-07-11 12:52 | Electrocardiograph Report ---
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
--- NOTE | 2020-07-11 12:53 | Electrocardiograph Report ---
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
== END 2020-07-09 10:06 | disposition home or self-care (01) ==
LOC: ED 00:53
DX: R07.89 Other chest pain (principal); I10 Essential (primary) hypertension; I25.2 Old myocardial infarction; Z86.73 Personal history of transient ischemic attack (TIA), and cerebral infarction without residual deficits; Z98.890 Other specified postprocedural states; Z79.899 Other long term (current) drug therapy
CPT/HCPCS: 36415; 71046; 80053; 84484; 85025; 93005

== ENCOUNTER 2020-07-24 00:13 | Emergency (ER) | payer MEDICAID ==
[2020-07-24 01:09] VITALS: BP 113/80
--- NOTE | 2020-07-24 02:05 | XRay Report ---
CHEST 1 VIEW 07/24/2020 12:56 AM INDICATION / CLINICAL INFORMATION: Difficulty in breathing. COMPARISON: 2 views of the chest from 07/09/2020. FINDINGS: SUPPORT DEVICES: None. HEART / MEDIASTINUM: No significant abnormality. LUNGS / PLEURA: Clear lungs. No significant pleural effusion. No pneumothorax. ADDITIONAL FINDINGS: No significant additional findings. IMPRESSION: 1. No acute abnormality of the chest. Signer Name: Elbert Craig MD Signed: 07/24/2020 2:01 AM Workstation Name: [id number]
--- NOTE | 2020-07-24 06:51 | Emergency Department Report ---
ED General Adult HPI - General Chief complaint: Dyspnea/Respdistress Stated complaint: NAUSEA/SOB PUI?: No Time Seen by Provider: 07/24/20 06:43 Source: patient Mode of arrival: Ambulatory Limitations: No Limitations, Physical Limitation - History of Present Illness Initial comments: 59-year-old F Georgian male [facility] emerge department complaining of a couple day history of cough and chest congestion with occasional nausea. Reports no vomiting, no diarrhea, no fever, chills, sweats reports no chest pain palpitation no hemoptysis, hematemesis hematochezia, no foreign travel. -: Gradual Radiation: non-radiation Consistency: constant Improves with: none Worsens with: none Associated Symptoms: denies other symptoms, nausea/vomiting. denies: loss of appetite, shortness of breath, syncope, weakness Treatments Prior to Arrival: none - Related Data Previous Rx's Medication Instructions Recorded Last Taken Type Esomeprazole Magnesium [NexIUM] 40 mg PO QDAY #30 capsule. 10/18/19 Unknown Rx Aspirin 325 mg PO QDAY #30 tablet 10/23/19 Unknown Rx Metoprolol [Lopressor TAB] 25 mg PO BID #60 tablet 10/23/19 Unknown Rx Aspirin 325 mg PO QDAY #30 tablet 05/16/20 Unknown Rx Folic Acid [Folvite] 1 mg PO QDAY #30 tablet 05/16/20 Unknown Rx Metoprolol [Lopressor TAB] 25 mg PO BID #60 tablet 05/16/20 Unknown Rx Multivitamin with Folic Acid [[facility]vs 400 mcg PO QDAY #30 tablet 05/16/20 Unknown Rx One Daily Essential Tablet] Pantoprazole [Protonix TAB] 40 mg PO QDAY #30 tablet 05/16/20 Unknown Rx Pravastatin [Pravachol] 20 mg PO QHS #30 tablet 05/16/20 Unknown Rx Thiamine [Vitamin B-1] 100 mg PO QDAY #30 tablet 05/16/20 Unknown Rx Baclofen 20 mg PO Q12H PRN #20 tablet 06/25/20 Unknown Rx predniSONE [Deltasone] 40 mg PO QDAY #10 tab 06/25/20 Unknown Rx Ondansetron [Zofran Odt] 4 mg PO Q8HR #14 tab.rapdis 07/24/20 Unknown Rx Allergies Allergy/AdvReac Type Severity Reaction Status Date / Time No Known Allergies Allergy Verified 05/31/20 00:31 ED Review of Systems ROS: Stated complaint: NAUSEA/SOB Other details as noted in HPI Comment: All other systems reviewed and negative ED Past Medical Hx - Past Medical History Previous Medical History?: Yes Hx Hypertension: Yes Hx CVA: Yes (left) Hx Heart Attack/AMI: Yes Hx Congestive Heart Failure: No Hx Diabetes: No Hx Asthma: No Hx COPD: No Hx HIV: No Additional medical history: chronic pain in back, neck and L knee, ETOH abuse. herniated disc - Surgical History Past Surgical History?: Yes Additional Surgical History: Left Knee. skin graft to right hand, left hip surgery - Social History Smoking Status: Never Smoker Substance Use Type: Alcohol - Medications Home Medications: Home Medications Medication Instructions Recorded Confirmed Last Taken Type Esomeprazole Magnesium [NexIUM] 40 mg PO QDAY #30 capsule. 10/18/19 Unknown Rx Aspirin 325 mg PO QDAY #30 tablet 10/23/19 Unknown Rx Metoprolol [Lopressor TAB] 25 mg PO BID #60 tablet 10/23/19 Unknown Rx Aspirin 325 mg PO QDAY #30 tablet 05/16/20 Unknown Rx Folic Acid [Folvite] 1 mg PO QDAY #30 tablet 05/16/20 Unknown Rx Metoprolol [Lopressor TAB] 25 mg PO BID #60 tablet 05/16/20 Unknown Rx Multivitamin with Folic Acid [[facility]vs 400 mcg PO QDAY #30 tablet 05/16/20 Unknown Rx One Daily Essential Tablet] Pantoprazole [Protonix TAB] 40 mg PO QDAY #30 tablet 05/16/20 Unknown Rx Pravastatin [Pravachol] 20 mg PO QHS #30 tablet 05/16/20 Unknown Rx Thiamine [Vitamin B-1] 100 mg PO QDAY #30 tablet 05/16/20 Unknown Rx Baclofen 20 mg PO Q12H PRN #20 tablet 06/25/20 Unknown Rx predniSONE [Deltasone] 40 mg PO QDAY #10 tab 06/25/20 Unknown Rx Ondansetron [Zofran Odt] 4 mg PO Q8HR #14 tab.rapdis 07/24/20 Unknown Rx ED Physical Exam - General Limitations: No Limitations, Physical Limitation General appearance: alert, in no apparent distress - Head Head exam: Present: atraumatic, normocephalic - Eye Eye exam: Present: normal appearance, PERRL, EOMI Pupils: Present: normal accommodation - ENT ENT exam: Present: normal exam, normal orophraynx, mucous membranes moist, TM's normal bilaterally - Neck Neck exam: Present: normal inspection, full ROM - Respiratory Respiratory exam: Present: normal lung sounds bilaterally. Absent: respiratory distress, wheezes, rales, chest wall tenderness, accessory muscle use - Cardiovascular Cardiovascular Exam: Present: regular rate, normal rhythm. Absent: systolic murmur, diastolic murmur, rubs, gallop - GI/Abdominal GI/Abdominal exam: Present: soft, normal bowel sounds - Rectal Rectal exam: Present: deferred - Extremities Exam Extremities exam: Present: normal inspection - Back Exam Back exam: Present: normal inspection - Neurological Exam Neurological exam: Present: alert, oriented X3 - Psychiatric Psychiatric exam: Present: normal affect, normal mood - Skin Skin exam: Present: warm, dry, intact, normal color. Absent: rash ED Course Vital Signs 07/24/20 01:08 Temperature 98.0 F Pulse Rate 87 Respiratory 18 Rate Blood Pressure 113/80 O2 Sat by Pulse 96 Oximetry ED Medical Decision Making - Radiology Data Radiology results: report reviewed Normal chest x-ray - Medical Decision Making This patient presents with acute cough, most consistent with nonemergent. Differential diagnosis includes URI, allergic rhinitis, bronchitis, pneumonia, asthma. Presentation not consistent with acute bacterial pneumonia, influenza, asthma, transient airway hyperresponsiveness. Presentation not consistent with chronic causes of cough (including GERD, asthma, postnasal discharge, medication side effect, CHF, lung cancer or mass). Plan: Normal CXR, supportive care, reassess this patient presents with dyspnea most likely secondary to a nonemergent cause. Differential diagnosis includes asthma, bronchitis, pleuritic pulmonary issue, viral syndrome. Presentation not consistent with acute cardiac etiologies CHF, pericardial effusion/tamponade. Presentation not consistent with acute respiratory etiologies to include acute pulmonary embolism ( PERC negative), pneumothorax, asthma, COPD exacerbation, infectious etiology such as pneumonia. The presentation also not consistent with known cardiopulmonary causes to include toxic syndrome, metabolic etiology such as acidemia or electrolyte derangements, sepsis, neurologic causes. Patient is resting comfortably in his bed no acute distress he ambulates with no desaturations speaks in full sentences. Primarily wanted to rest has no symptoms at this present time with exception of vague nausea Critical care attestation.: If time is entered above; I have spent that time in minutes in the direct care of this critically ill patient, excluding procedure time. ED Disposition Clinical Impression: Cough, Nausea Disposition: DC-01 TO HOME OR SELFCARE Is pt being admited?: No Does the pt Need Aspirin: No Condition: Stable Instructions: Nausea, Adult, Cool Mist Vaporizer, Cough, Adult, [id number] Prescriptions: Ondansetron [Zofran Odt] 4 mg PO Q8HR #14 tab.rapdis Referrals: PRIMARY CARE, [Primary Care Provider] - 3-5 Days
== END 2020-07-24 07:04 | disposition home or self-care (01) ==
LOC: EDBD → ED 00:13
DX: R05 Cough (principal); R11.0 Nausea; I10 Essential (primary) hypertension; I25.2 Old myocardial infarction; Z98.890 Other specified postprocedural states; Z79.899 Other long term (current) drug therapy
CPT/HCPCS: 71045

== ENCOUNTER 2020-07-27 01:00 | Emergency (ER) | payer MEDICAID ==
[2020-07-27 07:27] VITALS: BP 141/76
--- NOTE | 2020-07-27 08:48 | XRay Report ---
CHEST 2 VIEWS INDICATION: Chest Pain. COMPARISON: 07/24/2020 FINDINGS: Support devices: None. Heart: Within normal limits. Lungs/pleura: No acute air space or interstitial disease. No pneumothorax. Additional findings: None. IMPRESSION: No acute findings. Signer Name: Kodi Stuart Jr, MD Signed: 07/27/2020 8:43 AM Workstation Name: [id number]
[2020-07-27 09:05] LABS: Bilirubin,Urine NEG (Negative); Blood,Urine NEG (Negative); Color,Urine Straw (Yellow); Mucus,Urine FEW /HPF; Protein,Urine <15 mg/dL mg/dL (Negative); Urobilinogen,Urine < 2.0 mg/dL (<2.0); WBC,Urine < 1.0 /HPF (0.0-6.0)
--- NOTE | 2020-07-27 10:05 | Emergency Department Report ---
ED Shortness of Breath HPI - General Chief Complaint: Dyspnea/Respdistress Stated Complaint: SOB Time Seen by Provider: 07/27/20 07:48 Source: patient Mode of arrival: Ambulatory Limitations: No Limitations - History of Present Illness Initial Comments: This is a 59-year-old male nontoxic, well nourished in appearance, no acute signs of distress presents to the ED with c/o of shortness of breath and nonproductive cough times several days. Patient otherwise denies any other complaints or symptoms. Denies any chest pain. Patient denies any chest pain, hemoptysis, fever, chills, nausea, vomiting, headache, stiff neck, numbness, tingling, abdominal pain. Patient denies pleuritic chest pain. Patient denies any recent travels or long car rides. Patient denies any recent surgeries or any sick contacts. Patient denies any drug allergies. MD Complaint: shortness of breath -: days(s) Pain Scale: 0 Improves With: nothing Worsens With: nothing Associated Symptoms: denies other symptoms, cough Treatments Prior to Arrival: none - Related Data Home Oxygen Therapy: No Previous Rx's Medication Instructions Recorded Last Taken Type Esomeprazole Magnesium [NexIUM] 40 mg PO QDAY #30 capsule. 10/18/19 Unknown Rx Aspirin 325 mg PO QDAY #30 tablet 10/23/19 Unknown Rx Metoprolol [Lopressor TAB] 25 mg PO BID #60 tablet 10/23/19 Unknown Rx Aspirin 325 mg PO QDAY #30 tablet 05/16/20 Unknown Rx Folic Acid [Folvite] 1 mg PO QDAY #30 tablet 05/16/20 Unknown Rx Metoprolol [Lopressor TAB] 25 mg PO BID #60 tablet 05/16/20 Unknown Rx Multivitamin with Folic Acid [[facility]vs 400 mcg PO QDAY #30 tablet 05/16/20 Unknown Rx One Daily Essential Tablet] Pantoprazole [Protonix TAB] 40 mg PO QDAY #30 tablet 05/16/20 Unknown Rx Pravastatin [Pravachol] 20 mg PO QHS #30 tablet 05/16/20 Unknown Rx Thiamine [Vitamin B-1] 100 mg PO QDAY #30 tablet 05/16/20 Unknown Rx Baclofen 20 mg PO Q12H PRN #20 tablet 06/25/20 Unknown Rx predniSONE [Deltasone] 40 mg PO QDAY #10 tab 06/25/20 Unknown Rx Ondansetron [Zofran Odt] 4 mg PO Q8HR #14 tab.rapdis 07/24/20 Unknown Rx Allergies Allergy/AdvReac Type Severity Reaction Status Date / Time No Known Allergies Allergy Verified 05/31/20 00:31 ED Review of Systems ROS: Stated complaint: SOB Other details as noted in HPI Constitutional: denies: chills, fever Eyes: denies: eye pain, eye discharge, vision change ENT: denies: ear pain, throat pain, congestion Respiratory: cough, shortness of breath. denies: orthopnea, SOB with exertion, SOB at rest, stridor, wheezing Cardiovascular: denies: chest pain, palpitations Endocrine: no symptoms reported Gastrointestinal: denies: abdominal pain, nausea, diarrhea Genitourinary: denies: urgency, dysuria Musculoskeletal: denies: back pain, joint swelling, arthralgia Skin: denies: rash, lesions Neurological: denies: headache, weakness, paresthesias Psychiatric: denies: anxiety, depression Hematological/Lymphatic: denies: easy bleeding, easy bruising ED Past Medical Hx - Past Medical History Previous Medical History?: Yes Hx Hypertension: Yes Hx CVA: Yes (left) Hx Heart Attack/AMI: Yes Hx Congestive Heart Failure: No Hx Diabetes: No Hx Asthma: No Hx COPD: No Hx HIV: No Additional medical history: chronic pain in back, neck and L knee, ETOH abuse. herniated disc - Surgical History Past Surgical History?: Yes Additional Surgical History: Left Knee. skin graft to right hand, left hip surgery - Social History Smoking Status: Never Smoker Substance Use Type: Alcohol - Medications Home Medications: Home Medications Medication Instructions Recorded Confirmed Last Taken Type Esomeprazole Magnesium [NexIUM] 40 mg PO QDAY #30 capsule. 10/18/19 Unknown Rx Aspirin 325 mg PO QDAY #30 tablet 10/23/19 Unknown Rx Metoprolol [Lopressor TAB] 25 mg PO BID #60 tablet 10/23/19 Unknown Rx Aspirin 325 mg PO QDAY #30 tablet 05/16/20 Unknown Rx Folic Acid [Folvite] 1 mg PO QDAY #30 tablet 05/16/20 Unknown Rx Metoprolol [Lopressor TAB] 25 mg PO BID #60 tablet 05/16/20 Unknown Rx Multivitamin with Folic Acid [[facility] 400 mcg PO QDAY #30 tablet 05/16/20 Unknown Rx One Daily Essential Tablet] Pantoprazole [Protonix TAB] 40 mg PO QDAY #30 tablet 05/16/20 Unknown Rx Pravastatin [Pravachol] 20 mg PO QHS #30 tablet 05/16/20 Unknown Rx Thiamine [Vitamin B-1] 100 mg PO QDAY #30 tablet 05/16/20 Unknown Rx Baclofen 20 mg PO Q12H PRN #20 tablet 06/25/20 Unknown Rx predniSONE [Deltasone] 40 mg PO QDAY #10 tab 06/25/20 Unknown Rx Ondansetron [Zofran Odt] 4 mg PO Q8HR #14 tab.rapdis 07/24/20 Unknown Rx ED Physical Exam - General Limitations: No Limitations General appearance: alert, in no apparent distress - Head Head exam: Present: atraumatic, normocephalic - Eye Eye exam: Present: normal appearance - Neck Neck exam: Present: normal inspection. Absent: tenderness, meningismus, lymphadenopathy - Respiratory Respiratory exam: Present: normal lung sounds bilaterally. Absent: respiratory distress, wheezes, rales, rhonchi, stridor, chest wall tenderness, accessory muscle use, decreased breath sounds, prolonged expiratory - Cardiovascular Cardiovascular Exam: Present: regular rate, normal rhythm, tachycardia, normal heart sounds. Absent: irregular rhythm, systolic murmur, diastolic murmur, rubs, gallop - GI/Abdominal GI/Abdominal exam: Present: soft, normal bowel sounds. Absent: distended, tenderness, guarding, rebound, rigid - Extremities Exam Extremities exam: Present: normal inspection, full ROM - Back Exam Back exam: Present: normal inspection, full ROM - Neurological Exam Neurological exam: Present: alert, oriented X3, normal gait - Psychiatric Psychiatric exam: Present: normal affect, normal mood - Skin Skin exam: Present: warm, dry, intact, normal color. Absent: rash ED Course Vital Signs 07/27/20 07:24 Temperature 97.8 F Pulse Rate 93 H Respiratory 18 Rate Blood Pressure 141/76 [Right] O2 Sat by Pulse 97 Oximetry - Reevaluation(s) Reevaluation #1: 07/27/20 10:05 Patient is speaking in full sentences with no signs of distress noted. ED Medical Decision Making - Lab Data Lab Results 07/27/20 Range/Units 08:54 Urine Color Straw (Yellow) Urine Turbidity Clear (Clear) Urine pH 6.0 (5.0-7.0) Ur Specific War 1.004 (1.003-1.030) Urine Protein <15 mg/dl (Negative) mg/dL Urine Glucose (UA) Neg (Negative) mg/dL Urine Ketones Neg (Negative) mg/dL Urine Blood Neg (Negative) Urine Nitrite Neg (Negative) Urine Bilirubin Neg (Negative) Urine Urobilinogen < 2.0 (<2.0) mg/dL Ur Leukocyte Esterase Neg (Negative) Urine WBC (Auto) < 1.0 (0.0-6.0) /HPF Urine RBC (Auto) 2.0 (0.0-6.0) /HPF U Epithel Cells (Auto) < 1.0 (0-13.0) /HPF Urine Mucus Few /HPF - Radiology Data [facility] [address] [place] [address] XRay Report Signed Patient: REBECCA ELIZABETH MR#: [id number] : 1960 Acct:[id number] Age/Sex: 59 / M ADM Date: 07/27/20 Loc: ED Attending Dr: Ordering Physician: TAMARA YI NP Date of Service: 07/27/20 Procedure(s): XR chest routine 2V Accession Number(s): [id number] cc: TAMARA YI NP Fluoro Time In Minutes: CHEST 2 VIEWS INDICATION: Chest Pain. COMPARISON: 07/24/2020 FINDINGS: Support devices: None. Heart: Within normal limits. Lungs/pleura: No acute air space or interstitial disease. No pneumothorax. Additional findings: None. IMPRESSION: No acute findings. Signer Name: Kodi Stuart Jr, MD Signed: 07/27/2020 8:43 AM Workstation Name: [id number] Transcribed By: TTR Dictated By: KODI STUART JR, MD Electronically Authenticated By: KODI STUART JR, MD Signed Date/Time: 07/27/20842 DD/ 2 TD/TT: - Medical Decision Making This is a 59-year-old male that presents with shortness of breath and cough. Patient currently is stable and was examined by me. Labs has been ordered as well as imaging studies. Patient refused any blood drawn even after I educated of my concerns and instructed the necessary examination to be performed patient still refused. Patient also refused EKG as well. Patient refused also to get a AP x-ray of chest because he said he just wants to lay down and get rest but stated is okay with having a lateral x-ray taken. Otherwise physical exam is unremarkable. Due to no further testing or imaging studies I am unable to perform a full thorough physical exam for further evaluation and treatment. Patient was notified this and sign AGAINST MEDICAL ADVICE. Patient was instructed to follow-up with a primary care and auto customize painter doctor as soon as possible or if symptoms worsen and continue return to emergency room as soon as possible. At time of signing AGAINST MEDICAL ADVICE, the patient does not seem toxic or ill in appearance. No acute signs of distress noted. No further questions noted by the patient. Critical care attestation.: If time is entered above; I have spent that time in minutes in the direct care of this critically ill patient, excluding procedure time. ED Disposition Clinical Impression: Shortness of breath, Cough Disposition: LEFT AGAINST MED ADVICE Is pt being admited?: No Condition: Undetermined Instructions: Shortness of Breath, Adult, [id number], Cough, Adult, [id number] Additional Instructions: Follow-up with a primary care and auto customize painter doctor as soon as possible or if symptoms worsen and continue return to emergency room as soon as possible. Your condition may be serious as instructed and educated today in the ER but you decided to leave AGAINST MEDICAL ADVICE. It is highly recommended to see a provider as soon as possible to rule out serious complications that was describ ed to you during your ED stay. Referrals: GARCIA AGUSTIN MD [Staff Physician] - MATHEW KING MD [Staff Physician] - HAMZAH PRIMARY CAREMD [Primary Care Provider] - HAMZAH Forms: AMA Form Time of Disposition: 10:09
== END 2020-07-27 10:20 | disposition left against medical advice (07) ==
LOC: EDBD → ED 01:00
DX: R06.02 Shortness of breath (principal); R05 Cough; I10 Essential (primary) hypertension; I25.2 Old myocardial infarction; Z98.890 Other specified postprocedural states; Z79.899 Other long term (current) drug therapy
CPT/HCPCS: 71046; 81001

== ENCOUNTER 2020-07-28 22:52 | Emergency (ER) | payer MEDICAID ==
[2020-07-29 02:46] VITALS: BP 98/65
== END 2020-07-29 10:00 | disposition left against medical advice (07) ==
LOC: EDBD → ED 22:52
DX: R42 Dizziness and giddiness (principal); Z53.21 Procedure and treatment not carried out due to patient leaving prior to being seen by health care provider

== ENCOUNTER 2020-08-02 01:38 | Emergency (ER) | payer MEDICAID ==
--- NOTE | 2020-08-02 03:12 | XRay Report ---
CHEST 1 VIEW 0244 INDICATION / CLINICAL INFORMATION: sob COMPARISON: 07/27/2020 FINDINGS: SUPPORT DEVICES: None HEART / MEDIASTINUM: No significant abnormality. LUNGS / PLEURA: No significant pulmonary or pleural abnormality. No pneumothorax. ADDITIONAL FINDINGS: No significant additional findings. IMPRESSION: No significant acute abnormality Signer Name: Carlos Mcclellan MD Signed: 08/02/2020 3:07 AM Workstation Name: [id number]
[2020-08-02 04:16] VITALS: BP 104/74
--- NOTE | 2020-08-02 06:16 | Emergency Department Report ---
ED General Adult HPI - General Stated complaint: SOB/LOWER BACK PAIN Source: patient Mode of arrival: Ambulatory Limitations: Physical Limitation - History of Present Illness Initial comments: Mr. Lemus is a 59-year-old homeless male who presents for complaint of shortness of breath or respiratory distress however he has been treated multiple times in the past 2 weeks in this ED for same with similar work-up, vital signs are noted at stable pain is very vague and nonspecific. Patient denies exacerbating or relieving factors. There is been no fevers, chills, patient denies chest pain at this time there is no nausea vomiting, no lightheadedness, no dizziness, no headache, no cough or wheezing. Patient denies suspicious contacts. Patient is alert and oriented x3, patient is tolerating p.o. intake without symptoms. - Related Data Previous Rx's Medication Instructions Recorded Last Taken Type Esomeprazole Magnesium [NexIUM] 40 mg PO QDAY #30 capsule. 10/18/19 Unknown Rx Aspirin 325 mg PO QDAY #30 tablet 10/23/19 Unknown Rx Metoprolol [Lopressor TAB] 25 mg PO BID #60 tablet 10/23/19 Unknown Rx Aspirin 325 mg PO QDAY #30 tablet 05/16/20 Unknown Rx Folic Acid [Folvite] 1 mg PO QDAY #30 tablet 05/16/20 Unknown Rx Metoprolol [Lopressor TAB] 25 mg PO BID #60 tablet 05/16/20 Unknown Rx Multivitamin with Folic Acid [[facility]vs 400 mcg PO QDAY #30 tablet 05/16/20 Unknown Rx One Daily Essential Tablet] Pantoprazole [Protonix TAB] 40 mg PO QDAY #30 tablet 05/16/20 Unknown Rx Pravastatin [Pravachol] 20 mg PO QHS #30 tablet 05/16/20 Unknown Rx Thiamine [Vitamin B-1] 100 mg PO QDAY #30 tablet 05/16/20 Unknown Rx Baclofen 20 mg PO Q12H PRN #20 tablet 06/25/20 Unknown Rx predniSONE [Deltasone] 40 mg PO QDAY #10 tab 06/25/20 Unknown Rx Ondansetron [Zofran Odt] 4 mg PO Q8HR #14 tab.rapdis 07/24/20 Unknown Rx Allergies Allergy/AdvReac Type Severity Reaction Status Date / Time No Known Allergies Allergy Verified 05/31/20 00:31 ED Review of Systems ROS: Stated complaint: SOB/LOWER BACK PAIN Other details as noted in HPI Constitutional: denies: chills, fever Eyes: denies: eye pain, eye discharge, vision change ENT: denies: ear pain, throat pain Respiratory: shortness of breath. denies: cough, wheezing Cardiovascular: denies: chest pain, palpitations Endocrine: no symptoms reported Gastrointestinal: as per HPI. denies: nausea, vomiting Genitourinary: denies: urgency, dysuria Musculoskeletal: back pain. denies: joint swelling, arthralgia Skin: denies: rash, lesions Neurological: denies: headache, weakness, paresthesias Psychiatric: denies: anxiety, depression Hematological/Lymphatic: denies: easy bleeding, easy bruising ED Past Medical Hx - Past Medical History Previous Medical History?: Yes Hx Hypertension: Yes Hx CVA: Yes (left) Hx Heart Attack/AMI: Yes Hx Congestive Heart Failure: No Hx Diabetes: No Hx Asthma: No Hx COPD: No Hx HIV: No Additional medical history: chronic pain in back, neck and L knee, ETOH abuse. herniated disc - Surgical History Past Surgical History?: Yes Additional Surgical History: Left Knee. skin graft to right hand, left hip surgery - Social History Smoking Status: Never Smoker Substance Use Type: Alcohol - Medications Home Medications: Home Medications Medication Instructions Recorded Confirmed Last Taken Type Esomeprazole Magnesium [NexIUM] 40 mg PO QDAY #30 capsule. 10/18/19 Unknown Rx Aspirin 325 mg PO QDAY #30 tablet 10/23/19 Unknown Rx Metoprolol [Lopressor TAB] 25 mg PO BID #60 tablet 10/23/19 Unknown Rx Aspirin 325 mg PO QDAY #30 tablet 05/16/20 Unknown Rx Folic Acid [Folvite] 1 mg PO QDAY #30 tablet 05/16/20 Unknown Rx Metoprolol [Lopressor TAB] 25 mg PO BID #60 tablet 05/16/20 Unknown Rx Multivitamin with Folic Acid [Cvs 400 mcg PO QDAY #30 tablet 05/16/20 Unknown Rx One Daily Essential Tablet] Pantoprazole [Protonix TAB] 40 mg PO QDAY #30 tablet 05/16/20 Unknown Rx Pravastatin [Pravachol] 20 mg PO QHS #30 tablet 05/16/20 Unknown Rx Thiamine [Vitamin B-1] 100 mg PO QDAY #30 tablet 05/16/20 Unknown Rx Baclofen 20 mg PO Q12H PRN #20 tablet 06/25/20 Unknown Rx predniSONE [Deltasone] 40 mg PO QDAY #10 tab 06/25/20 Unknown Rx Ondansetron [Zofran Odt] 4 mg PO Q8HR #14 tab.rapdis 07/24/20 Unknown Rx ED Physical Exam - General Limitations: Physical Limitation General appearance: alert, in no apparent distress - Head Head exam: Present: atraumatic, normocephalic - Eye Eye exam: Present: EOMI Pupils: Present: normal accommodation - ENT ENT exam: Present: mucous membranes moist - Neck Neck exam: Present: normal inspection - Respiratory Respiratory exam: Present: normal lung sounds bilaterally. Absent: respiratory distress, wheezes, stridor, chest wall tenderness - Cardiovascular Cardiovascular Exam: Present: regular rate, normal rhythm, normal heart sounds. Absent: systolic murmur, diastolic murmur, rubs, gallop - GI/Abdominal GI/Abdominal exam: Present: soft, normal bowel sounds. Absent: distended, tenderness, bruit, hernia - Rectal Rectal exam: Present: deferred - Extremities Exam Extremities exam: Present: normal inspection, full ROM. Absent: tenderness - Back Exam Back exam: Present: normal inspection, full ROM. Absent: CVA tenderness (R), CVA tenderness (L), paraspinal tenderness, vertebral tenderness - Expanded Back Exam Expanded Back exam: Absent: saddle anesthesia Back exam: Negative Straight Leg Raising: Left, Right - Neurological Exam Neurological exam: Present: alert, oriented X3, CN II-XII intact, normal gait - Expanded Neurological Exam Expanded Patient oriented to: Present: person, place, time Speech: Present: fluid speech Motor strength exam: RUE: 5, LUE: 5, RLE: 5, LLE: 5 Best Eye Response ([place]): (4) open spontaneously Best Motor Response ([place]): (6) obeys commands Best Verbal Response ([place]): (5) oriented [place] Total: 15 - Psychiatric Psychiatric exam: Present: normal affect, normal mood - Skin Skin exam: Present: warm, dry, intact, normal color. Absent: rash ED Course Vital Signs 08/02/20 02:20 Temperature 97.7 F Pulse Rate 98 H Respiratory 18 Rate Blood Pressure 104/74 O2 Sat by Pulse 96 Oximetry ED Medical Decision Making - Radiology Data Radiology results: report reviewed, image reviewed CHEST 1 VIEW 0244 INDICATION / CLINICAL INFORMATION: sob COMPARISON: 07/27/2020 FINDINGS: SUPPORT DEVICES: None HEART / MEDIASTINUM: No significant abnormality. LUNGS / PLEURA: No significant pulmonary or pleural abnormality. No pneumothorax. ADDITIONAL FINDINGS: No significant additional findings. IMPRESSION: No significant acute abnormality Signer Name: Carlos Mcclellan MD Signed: 08/02/2020 3:07 AM Workstation Name: [id number] Transcribed By: EMMIE Dictated By: Carlos Mcclellan MD Electronically Authenticated By: Carlos Mcclellan MD Signed Date/Time: 08/02/20306 DD/ 6 TD/TT: - Medical Decision Making Chest x-ray no change from 4 days ago, physical exam lungs are clear throughout no wheezing no stridor no cough, patient is alert and ambulatory with steady gait with no acute distress. Patient will be DC'd to self at this time will follow up with primary care doctor in 2 to 3 days, patient was given instructions to return to ED should symptoms return or worsen. pt verbalized agreement and understanding of same. Critical care attestation.: If time is entered above; I have spent that time in minutes in the direct care of this critically ill patient, excluding procedure time. ED Disposition Clinical Impression: SOB (shortness of breath) Chronic back pain Qualifiers: Back pain location: low back pain Back pain laterality: right Sciatica presence: without sciatica Qualified Code(s): M54.5 - Low back pain; G89.29 - Other chronic pain Disposition: DC-01 TO HOME OR SELFCARE Is pt being admited?: No Does the pt Need Aspirin: No Condition: Stable Instructions: Shortness of Breath, Adult, [id number] Additional Instructions: Take all medications a prescribed, return to emergency if you develop symptoms. Referrals: [facility] [Provider Group] - 3-5 Days Time of Disposition: 06:20
== END 2020-08-02 06:25 | disposition home or self-care (01) ==
LOC: EDBD → ED 01:38
DX: R06.02 Shortness of breath (principal); M54.5 Low back pain; G89.29 Other chronic pain; I10 Essential (primary) hypertension; I25.2 Old myocardial infarction; Z98.890 Other specified postprocedural states; Z79.899 Other long term (current) drug therapy
CPT/HCPCS: 71045

== ENCOUNTER 2020-08-04 00:40 | Emergency (ER) | payer MEDICAID ==
[2020-08-04 06:05] VITALS: BP 112/78
== END 2020-08-04 07:44 | disposition left against medical advice (07) ==
LOC: EDBD → ED 00:40
DX: M54.9 Dorsalgia, unspecified (principal); Z53.21 Procedure and treatment not carried out due to patient leaving prior to being seen by health care provider

== ENCOUNTER 2020-08-04 23:43 | Emergency (ER) | payer MEDICAID | END 2020-08-04 23:48 | disposition left against medical advice (07) | LOC: EDBD → ED 23:43 | DX: R10.9 Unspecified abdominal pain (principal); Z53.21 Procedure and treatment not carried out due to patient leaving prior to being seen by health care provider ==

== ENCOUNTER 2020-08-05 23:42 | Emergency (ER) | payer MEDICAID ==
[2020-08-06 04:54] VITALS: BP 124/98
--- NOTE | 2020-08-06 07:34 | Emergency Department Report ---
ED Abdominal Pain HPI - General Chief Complaint: Back Pain/Injury Stated Complaint: NAUSEA/BACK PAIN/SOB Time Seen by Provider: 08/06/20 07:25 Source: patient Mode of arrival: Ambulatory Limitations: No Limitations - History of Present Illness Initial Comments: This is a 59-year-old male nontoxic, well nourished in appearance, no acute signs of distress presents to the ED with c/o of acute on chronic intermittent nausea, lower back pain, and abdominal pain several days. Patient denies any radiation of pain. Patient denies any trauma. Denies any bladder or bowel instability. Patient denies any urinary symptoms. Currently patient stated that symptoms has resolved but just wants a bus pass and food. As per yarn inspector, patient may be homeless. Patient denies any vomiting. Patient describes abdominal pain as cramping and aching with level of 3/10 diffuse but has resolved since ED stay. Patient denies chest pain, short of breath, fever, h emoptysis, blood in stool, chills, headache, stiff neck, numbness or tingling. Patient denies any diarrhea or constipation. Denies any blood in stool. Patient denies any recent travels. Patient denies any drug allergies. MD Complaint: abdominal pain, other (back pain) -: days(s) Location: diffuse Radiation: none Severity scale (0 -10): 0 Consistency: now resolved Improves With: nothing Worsens With: nothing Associated Symptoms: nausea. denies: vomiting, diarrhea, fever, chills, constipation, dysuria, hematemesis, hematochezia, melena, hematuria, anorexia, syncope - Related Data Previous Rx's Medication Instructions Recorded Last Taken Type Esomeprazole Magnesium [NexIUM] 40 mg PO QDAY #30 capsule. 10/18/19 Unknown Rx Aspirin 325 mg PO QDAY #30 tablet 10/23/19 Unknown Rx Metoprolol [Lopressor TAB] 25 mg PO BID #60 tablet 10/23/19 Unknown Rx Aspirin 325 mg PO QDAY #30 tablet 05/16/20 Unknown Rx Folic Acid [Folvite] 1 mg PO QDAY #30 tablet 05/16/20 Unknown Rx Metoprolol [Lopressor TAB] 25 mg PO BID #60 tablet 05/16/20 Unknown Rx Multivitamin with Folic Acid [Cvs 400 mcg PO QDAY #30 tablet 05/16/20 Unknown Rx One Daily Essential Tablet] Pantoprazole [Protonix TAB] 40 mg PO QDAY #30 tablet 05/16/20 Unknown Rx Pravastatin [Pravachol] 20 mg PO QHS #30 tablet 05/16/20 Unknown Rx Thiamine [Vitamin B-1] 100 mg PO QDAY #30 tablet 05/16/20 Unknown Rx Baclofen 20 mg PO Q12H PRN #20 tablet 06/25/20 Unknown Rx predniSONE [Deltasone] 40 mg PO QDAY #10 tab 06/25/20 Unknown Rx Ondansetron [Zofran Odt] 4 mg PO Q8HR #14 tab.rapdis 07/24/20 Unknown Rx Allergies Allergy/AdvReac Type Severity Reaction Status Date / Time No Known Allergies Allergy Verified 05/31/20 00:31 ED Review of Systems ROS: Stated complaint: NAUSEA/BACK PAIN/SOB Other details as noted in HPI Comment: All other systems reviewed and negative Constitutional: denies: chills, fever Eyes: denies: eye pain, eye discharge, vision change ENT: denies: ear pain, throat pain Respiratory: denies: cough, shortness of breath, wheezing Cardiovascular: denies: chest pain, palpitations Endocrine: no symptoms reported Gastrointestinal: abdominal pain, nausea. denies: vomiting, diarrhea, constipation, hematemesis, melena, hematochezia Genitourinary: denies: urgency, dysuria Musculoskeletal: back pain. denies: joint swelling, arthralgia Skin: denies: rash, lesions Neurological: denies: headache, weakness, paresthesias Psychiatric: denies: anxiety, depression Hematological/Lymphatic: denies: easy bleeding, easy bruising ED Past Medical Hx - Past Medical History Previous Medical History?: Yes Hx Hypertension: Yes Hx CVA: Yes (left) Hx Heart Attack/AMI: Yes Hx Congestive Heart Failure: No Hx Diabetes: No Hx Asthma: No Hx COPD: No Hx HIV: No Additional medical history: chronic pain in back, neck and L knee, ETOH abuse. herniated disc - Surgical History Past Surgical History?: Yes Additional Surgical History: Left Knee. skin graft to right hand, left hip surgery - Social History Smoking Status: Never Smoker Substance Use Type: Alcohol - Medications Home Medications: Home Medications Medication Instructions Recorded Confirmed Last Taken Type Esomeprazole Magnesium [NexIUM] 40 mg PO QDAY #30 10/18/19 Unknown Rx Aspirin 325 mg PO QDAY #30 tablet 10/23/19 Unknown Rx Metoprolol [Lopressor TAB] 25 mg PO BID #60 tablet 10/23/19 Unknown Rx Aspirin 325 mg PO QDAY #30 tablet 05/16/20 Unknown Rx Folic Acid [Folvite] 1 mg PO QDAY #30 tablet 05/16/20 Unknown Rx Metoprolol [Lopressor TAB] 25 mg PO BID #60 tablet 05/16/20 Unknown Rx Multivitamin with Folic Acid [Cvs 400 mcg PO QDAY #30 tablet 05/16/20 Unknown Rx One Daily Essential Tablet] Pantoprazole [Protonix TAB] 40 mg PO QDAY #30 tablet 05/16/20 Unknown Rx Pravastatin [Pravachol] 20 mg PO QHS #30 tablet 05/16/20 Unknown Rx Thiamine [Vitamin B-1] 100 mg PO QDAY #30 tablet 05/16/20 Unknown Rx Baclofen 20 mg PO Q12H PRN #20 tablet 06/25/20 Unknown Rx predniSONE [Deltasone] 40 mg PO QDAY #10 tab 06/25/20 Unknown Rx Ondansetron [Zofran Odt] 4 mg PO Q8HR #14 tab.rapdis 07/24/20 Unknown Rx ED Physical Exam - General Limitations: No Limitations General appearance: alert, in no apparent distress - Head Head exam: Present: atraumatic, normocephalic - Eye Eye exam: Present: normal appearance - Neck Neck exam: Present: normal inspection, full ROM. Absent: tenderness, meningismus, lymphadenopathy - Respiratory Respiratory exam: Present: normal lung sounds bilaterally. Absent: respiratory distress, wheezes, rales, rhonchi, stridor, chest wall tenderness, accessory muscle use, decreased breath sounds, prolonged expiratory - Cardiovascular Cardiovascular Exam: Present: regular rate, normal rhythm, tachycardia, normal heart sounds. Absent: irregular rhythm, systolic murmur, diastolic murmur, rubs, gallop - GI/Abdominal GI/Abdominal exam: Present: soft, normal bowel sounds. Absent: distended, tenderness, guarding, rebound, rigid, diminished bowel sounds - Extremities Exam Extremities exam: Present: normal inspection, full ROM - Back Exam Back exam: Present: normal inspection, full ROM, paraspinal tenderness (Lumbar paraspinal). Absent: tenderness, CVA tenderness (R), CVA tenderness (L), muscle spasm, vertebral tenderness, rash noted - Expanded Back Exam Expanded Back exam: Absent: saddle anesthesia Back exam: Negative Straight Leg Raising: Left, Right - Neurological Exam Neurological exam: Present: alert, oriented X3, normal gait - Psychiatric Psychiatric exam: Present: normal affect, normal mood - Skin Skin exam: Present: warm, dry, intact, normal color. Absent: rash ED Course Vital Signs 08/06/20 04:51 Temperature 98.0 F Pulse Rate 101 H Respiratory 16 Rate Blood Pressure 124/98 O2 Sat by Pulse 99 Oximetry - Reevaluation(s) Reevaluation #1: 08/06/20 07:34 Patient is speaking in full sentences with no signs of distress noted. ED Medical Decision Making - Medical Decision Making This is a 59-year-old male that presents with nausea, abdominal pain, and low back pains. Patient currently is stable and was examined by me. Labs has been ordered as well as imaging studies. Patient refused any blood drawn even after I educated of my concerns and instructed the necessary examination to be performed patient still refused. Patient also refused EKG as well. Patient refused imaging studies. Otherwise physical exam is unremarkable. Patient stated he feels much better and just wants food and a bus pass. Due to no further testing or imaging studies I am unable to perform a full thorough physical exam for further evaluation and treatment. Patient was notified this and sign AGAINST MEDICAL ADVICE. Patient was instructed to follow-up with a primary care and peoplesoft hcm developer doctor as soon as possible or if symptoms worsen and continue return to emergency room as soon as possible. At time of signing AGAINST MEDICAL ADVICE, the patient does not seem toxic or ill in appearance. No acute signs of distress noted. No further questions noted by the patient. Critical care attestation.: If time is entered above; I have spent that time in minutes in the direct care of this critically ill patient, excluding procedure time. ED Disposition Clinical Impression: Nausea Abdominal pain Qualifiers: Abdominal location: generalized Qualified Code(s): R10.84 - Generalized abdominal pain Chronic back pain Qualifiers: Back pain location: low back pain Back pain laterality: unspecified Sciatica presence: unspecified whether sciatica present Qualified Code(s): M54.5 - Low back pain; G89.29 - Other chronic pain Disposition: LEFT AGAINST MED ADVICE Is pt being admited?: No Condition: Undetermined Additional Instructions: Follow-up with a primary care doctor as soon as possible or if symptoms worsen and continue return to emergency room as soon as possible. Your condition may be serious as instructed and educated today in the ER but you decided to leave AGAINST MEDICAL ADVICE. It is highly recommended to see a provider as soon as possible to rule out serious complications that was described to you during your ED stay. Referrals: [facility] [Outside] - 3-5 Days CHILLICOTHE DOMONIQUE LIRA MD [Primary Care Provider] - [facility] MD ROVERTO [Referring] - MATHEW KING MD [Staff Physician] - [facility] [Provider Group] - [facility] Forms: AMA Form Time of Disposition: 07:37
== END 2020-08-06 08:00 | disposition left against medical advice (07) ==
LOC: EDBD → ED 23:42
DX: G89.29 Other chronic pain (principal); M54.5 Low back pain; R11.0 Nausea; R10.84 Generalized abdominal pain; I10 Essential (primary) hypertension; Z86.73 Personal history of transient ischemic attack (TIA), and cerebral infarction without residual deficits; Z79.899 Other long term (current) drug therapy

== ENCOUNTER 2020-08-06 23:02 | Emergency (ER) | payer MEDICAID ==
[2020-08-06 23:33] VITALS: BP 123/78
--- NOTE | 2020-08-07 01:27 | XRay Report ---
CHEST 1 VIEW INDICATION: SOB COMPARISON: 08/02/2020 FINDINGS: SUPPORT DEVICES: None. HEART / MEDIASTINUM: No significant abnormality. LUNGS / PLEURA: No significant pulmonary or pleural abnormality. No pneumothorax. ADDITIONAL FINDINGS: IMPRESSION: 1. No acute cardiopulmonary disease Signer Name: Nav Kirby MD Signed: 08/07/2020 1:22 AM Workstation Name: [id number]
== END 2020-08-07 08:00 | disposition left against medical advice (07) ==
LOC: EDBD → ED 23:02
DX: R06.02 Shortness of breath (principal); R11.0 Nausea; M54.6 Pain in thoracic spine; Z53.21 Procedure and treatment not carried out due to patient leaving prior to being seen by health care provider
CPT/HCPCS: 71045

== ENCOUNTER 2020-08-07 22:58 | Emergency (ER) | payer MEDICAID ==
[2020-08-08 02:05] VITALS: BP 127/80
--- NOTE | 2020-08-08 02:50 | XRay Report ---
CHEST 1 VIEW INDICATION: Short of breath COMPARISON: 08/07/2020 FINDINGS: SUPPORT DEVICES: None. HEART / MEDIASTINUM: No significant abnormality. LUNGS / PLEURA: No significant pulmonary or pleural abnormality. No pneumothorax. ADDITIONAL FINDINGS: IMPRESSION: 1. No acute cardiopulmonary disease Signer Name: Nav Kirby MD Signed: 08/08/2020 2:46 AM Workstation Name: [id number]
--- NOTE | 2020-08-08 07:44 | Emergency Department Report ---
Chief Complaint: Dyspnea/Respdistress Stated Complaint: BACK PAIN;BREATHING PROBLEMS Time Seen by Provider: 08/08/20 07:37 - HPI History of Present Illness: Patient is a 59-year-old -Finnish male comes to the emergency room the last several nights in a row complaining of shortness of breath. He has had imaging numerous times and they have all been normal. Patient comes to the ER with several bags of clothing and personal belongings. I suspect this is a social issue with nowhere to stay during the evening. - ROS Review of Systems: On reexam at 730 patient denies any complaints. He was found sleeping in the corner of the emergency room. He easily aroused. He denies chest pain or shortness of breath. Patient asking for something to eat - Exam Vital Signs: Vital Signs 08/08/20 01:48 Temperature 98.5 F Pulse Rate 95 H Respiratory 18 Rate Blood Pressure 127/80 O2 Sat by Pulse 97 Oximetry Physical Exam: Alert and oriented x4. Moves all extremities. No SI no HI. S1-S2 No lower extremity edema Lungs clear to auscultation Ambulatory without difficulty MSE screening note: Focused history and physical exam performed. Due to findings the following was ordered: No life threat. X-ray as ordered by the nursing staff noted to be normal. Vital signs stable. As noted I suspect this is a social issue for his been in the ER several nights in a row. Being MSE at home with PCP follow-up Patient discussed with doctor:: JESSIE BOWSER ED Disposition for MSE Clinical Impression: Chronic back pain Disposition: MED SCREENING EXAM-LEFT Is pt being admited?: No Does the pt Need Aspirin: No Condition: Stable Referrals: MATHEW REAVES MD [Staff Physician] - 3-5 Days Time of Disposition: 07:50
== END 2020-08-08 08:31 | disposition left against medical advice (07) ==
LOC: EDBD → ED 22:58
DX: R06.02 Shortness of breath (principal); M54.6 Pain in thoracic spine; Z53.21 Procedure and treatment not carried out due to patient leaving prior to being seen by health care provider
CPT/HCPCS: 71045

== ENCOUNTER 2020-08-09 23:27 | Emergency (ER) | payer MEDICAID ==
[2020-08-10 04:43] LABS: Hematocrit 36.5 % (35.5-45.6); Hemoglobin 12.4 gm/dl (11.8-15.2); Mean Corpuscular HGB Conc 34 % (32-34); Mean Corpuscular Volume 88 fl (84-94); Platelet Count 81 K/mm3 (140-440); Red Blood Count 4.16 M/mm3 (3.65-5.03)
[2020-08-10 05:03] LABS: Hemolysis Index 147
[2020-08-10 05:07] LABS: BUN/Creatinine Ratio TNR; Blood Urea Nitrogen TNR mg/dL (9-20)
[2020-08-10 05:08] LABS: Calcium TNR mg/dL (8.4-10.2)
--- NOTE | 2020-08-10 05:08 | Emergency Department Report ---
ED Chest Pain HPI - General Chief Complaint: Chest Pain Stated Complaint: CHEST PAIN/SOB/BCK PAIN Time Seen by Provider: 08/10/20 03:43 Source: patient Mode of arrival: Ambulatory Limitations: No Limitations - History of Present Illness Initial Comments: This is a 59-year-old -Grenadian male who is well-known to both myself in this department. Mr. Lemus presents with a complaint of some generalized chest discomfort, mild shortness of breath and chronic back pain. Patient has a past medical history of previous CVA, coronary artery disease, hypertension, chronic alcohol abuse, chronic musculoskeletal pains. He has not taken anything for his symptoms prior to presentation today. Patient had a cardiac catheterization done here in October of last year that showed "mild coronary lesions" that are to be treated medically. No recent travel or sick contacts at home. - Related Data Previous Rx's Medication Instructions Recorded Last Taken Type Esomeprazole Magnesium [NexIUM] 40 mg PO QDAY #30 capsule. 10/18/19 Unknown Rx Aspirin 325 mg PO QDAY #30 tablet 10/23/19 Unknown Rx Metoprolol [Lopressor TAB] 25 mg PO BID #60 tablet 10/23/19 Unknown Rx Aspirin 325 mg PO QDAY #30 tablet 05/16/20 Unknown Rx Folic Acid [Folvite] 1 mg PO QDAY #30 tablet 05/16/20 Unknown Rx Metoprolol [Lopressor TAB] 25 mg PO BID #60 tablet 05/16/20 Unknown Rx Multivitamin with Folic Acid [Cvs 400 mcg PO QDAY #30 tablet 05/16/20 Unknown Rx One Daily Essential Tablet] Pantoprazole [Protonix TAB] 40 mg PO QDAY #30 tablet 05/16/20 Unknown Rx Pravastatin [Pravachol] 20 mg PO QHS #30 tablet 05/16/20 Unknown Rx Thiamine [Vitamin B-1] 100 mg PO QDAY #30 tablet 05/16/20 Unknown Rx Baclofen 20 mg PO Q12H PRN #20 tablet 06/25/20 Unknown Rx predniSONE [Deltasone] 40 mg PO QDAY #10 tab 06/25/20 Unknown Rx Ondansetron [Zofran Odt] 4 mg PO Q8HR #14 tab.rapdis 07/24/20 Unknown Rx Allergies Allergy/AdvReac Type Severity Reaction Status Date / Time No Known Allergies Allergy Verified 03/24/21 00:31 Heart Score - HEART Score History: Slightly suspicious EKG: Normal Age: 45-65 Risk factors: > 3 risk factors or hx of atherosclerotic disease Troponin: < normal limit HEART Score: 3 - EKG Read Time Time EKG Completed: 23:42 EKG Read Time: 23:47 - Critical Actions Critical Actions: 0-3 pts:0.9-1.7%risk of adverse cardiac event.Candidate for discharge ED Review of Systems ROS: Stated complaint: CHEST PAIN/SOB/BCK PAIN Other details as noted in HPI Comment: All other systems reviewed and negative Constitutional: denies: chills, fever Eyes: denies: eye pain, vision change ENT: denies: ear pain, throat pain Respiratory: shortness of breath. denies: cough Cardiovascular: chest pain. denies: edema Gastrointestinal: denies: abdominal pain, vomiting Genitourinary: denies: dysuria, discharge Musculoskeletal: back pain. denies: arthralgia Skin: denies: rash, lesions Neurological: denies: headache, numbness ED Past Medical Hx - Past Medical History Previous Medical History?: Yes Hx Hypertension: Yes Hx CVA: Yes (left) Hx Heart Attack/AMI: Yes Hx Congestive Heart Failure: No Hx Diabetes: No Hx Asthma: No Hx COPD: No Hx HIV: No Additional medical history: chronic pain in back, neck and L knee, ETOH abuse. herniated disc - Surgical History Additional Surgical History: Left Knee. skin graft to right hand, left hip surgery - Social History Smoking Status: Current Every Day Smoker Substance Use Type: Alcohol - Medications Home Medications: Home Medications Medication Instructions Recorded Confirmed Last Taken Type Esomeprazole Magnesium [NexIUM] 40 mg PO QDAY #30 capsule. 10/18/19 Unknown Rx Aspirin 325 mg PO QDAY #30 tablet 10/23/19 Unknown Rx Metoprolol [Lopressor TAB] 25 mg PO BID #60 tablet 10/23/19 Unknown Rx Aspirin 325 mg PO QDAY #30 tablet 05/16/20 Unknown Rx Folic Acid [Folvite] 1 mg PO QDAY #30 tablet 05/16/20 Unknown Rx Metoprolol [Lopressor TAB] 25 mg PO BID #60 tablet 05/16/20 Unknown Rx Multivitamin with Folic Acid [Cvs 400 mcg PO QDAY #30 tablet 05/16/20 Unknown Rx One Daily Essential Tablet] Pantoprazole [Protonix TAB] 40 mg PO QDAY #30 tablet 05/16/20 Unknown Rx Pravastatin [Pravachol] 20 mg PO QHS #30 tablet 05/16/20 Unknown Rx Thiamine [Vitamin B-1] 100 mg PO QDAY #30 tablet 05/16/20 Unknown Rx Baclofen 20 mg PO Q12H PRN #20 tablet 06/25/20 Unknown Rx predniSONE [Deltasone] 40 mg PO QDAY #10 tab 06/25/20 Unknown Rx Ondansetron [Zofran Odt] 4 mg PO Q8HR #14 tab.rapdis 07/24/20 Unknown Rx ED Physical Exam - General Limitations: No Limitations - Other Other exam information: GENERAL: The patient is well-developed well-nourished. HENT: Normocephalic. Atraumatic. Patient has moist mucous membranes. EYES: Extraocular motions are intact. NECK: Supple. Trachea is midline. CHEST/LUNGS: Clear to auscultation. There is no respiratory distress noted. HEART/CARDIOVASCULAR: Regular. There is no tachycardia. There is no murmur. ABDOMEN: Abdomen is soft, nontender. Patient has normal bowel sounds. SKIN: Skin is warm and dry. NEURO: The patient is awake, alert, and cooperative. The patient has no focal neurologic deficits. Normal speech. MUSCULOSKELETAL: There is no tenderness or deformity. ED Course Vital Signs 08/09/20 08/10/20 23:48 05:20 Temperature 98.2 F 98.6 F Pulse Rate 109 H 111 H Respiratory 18 18 Rate Blood Pressure 112/83 Blood Pressure 111/74 [Left] O2 Sat by Pulse 96 96 Oximetry CHALO score - Chalo Score Age > 65: (0) No Aspirin use within the Past 7 Days: (0) No 3 or more CAD Risk Factors: (1) Yes 2 or more Angina events in past 24 hrs: (1) Yes Known CAD with more than 50% Stenosis: (0) No Elevated Cardiac Markers: (0) No ST Deviation Greater than 0.5mm: (0) No CHALO Score: 2 ED Medical Decision Making - Lab Data Result diagrams: 08/10/20 04:21 08/10/20 05:19 Lab Results 08/10/20 08/10/20 08/10/20 Range/Units 04:21 04:21 05:19 WBC 2.6 L (4.5-11.0) K/mm3 RBC 4.16 (3.65-5.03) M/mm3 Hgb 12.4 (11.8-15.2) gm/dl Hct 36.5 (35.5-45.6) % MCV 88 (84-94) fl MCH 30 (28-32) pg MCHC 34 (32-34) % RDW 16.0 H (13.2-15.2) % Plt Count 81 L (140-440) K/mm3 Add Manual Diff Complete Total Counted 100 Seg Neutrophils % Master Control Supervisor Seg Neuts % (Manual) 51.0 (40.0-70.0) % Lymphocytes % (Manual) 35.0 (13.4-35.0) % Monocytes % (Manual) 6.0 (0.0-7.3) % Eosinophils % (Manual) 6.0 H (0.0-4.3) % Basophils % (Manual) 2.0 H (0.0-1.8) % Nucleated RBC % Not Reportable Seg Neutrophils # Man 1.3 L (1.8-7.7) K/mm3 Band Neutrophils # 0.0 K/mm3 Lymphocytes # (Manual) 0.9 L (1.2-5.4) K/mm3 Abs React Lymphs (Man) 0.0 K/mm3 Monocytes # (Manual) 0.2 (0.0-0.8) K/mm3 Eosinophils # (Manual) 0.2 (0.0-0.4) K/mm3 Basophils # (Manual) 0.1 (0.0-0.1) K/mm3 Metamyelocytes # 0.0 K/mm3 Myelocytes # 0.0 K/mm3 Promyelocytes # 0.0 K/mm3 Blast Cells # 0.0 K/mm3 WBC Morphology Not Reportable Hypersegmented Neuts Not Reportable Hyposegmented Neuts Not Reportable Hypogranular Neuts Not Reportable Smudge Cells Few Toxic Granulation Not Reportable Toxic Vacuolation Not Reportable Dohle Bodies Not Reportable Pelger-Huet Anomaly Not Reportable Katie Rods Not Reportable Platelet Estimate Consistent w auto Clumped Platelets Not Reportable Plt Clumps, EDTA Not Reportable Large Platelets Not Reportable Giant Platelets Not Reportable Platelet Satelliting Not Reportable Plt Morphology Comment Not Reportable RBC Morphology Not Reportable Dimorphic RBCs Not Reportable Polychromasia Not Reportable Hypochromasia 1+ Poikilocytosis Not Reportable Anisocytosis Not Reportable Microcytosis Not Reportable Macrocytosis Not Reportable Spherocytes Not Reportable Pappenheimer Bodies Not Reportable Sickle Cells Not Reportable Target Cells Not Reportable Tear Drop Cells Not Reportable Ovalocytes Not Reportable Helmet Cells Not Reportable [place] Bodies Not Reportable [place] Rings Not Reportable [place] Cells Not Reportable Bite Cells Not Reportable Crenated Cell Not Reportable Elliptocytes Not Reportable Acanthocytes (Spur) Not Reportable Rouleaux Not Reportable Hemoglobin C Crystals Not Reportable Schistocytes Not Reportable Malaria parasites Not Reportable Connor Bodies Not Reportable Hem Pathologist Commnt No Sodium TNR 138 Potassium TNR 3.9 Chloride TNR 98.7 Carbon Dioxide TNR 21 L Anion Gap TNR 22 BUN TNR 4 L Creatinine TNR 0.6 L Estimated GFR TNR > 60 BUN/Creatinine Ratio TNR 7 Glucose TNR 101 H Calcium TNR 8.0 L Troponin T TNR < 0.010 - EKG Data -: EKG Interpreted by Me EKG shows normal: sinus rhythm, axis, intervals (Prolonged VA interval), QRS complexes, ST-T waves Rate: normal - EKG Data When compared to previous EKG there are: no significant change Interpretation: unchanged when compared t (07/09/2020) - Radiology Data Radiology results: image reviewed interpreted by me: Chest x-ray does not show any acute process. There are no pleural effusions, obvious pneumonia and there is no pneumothorax. No significant cardiomegaly. No widened mediastinum. - Medical Decision Making This patient is well-known to me in this emergency department. He presents with the complaint of some chest pain, chronic back pains and shortness of breath. The patient is seen eating a meal tray, resting comfortably, and in no acute distress. EKG did not have any morphology consistent with ST elevation myocardial infarction. Chest x-ray does not show any pneumonia, pleural effusions, pneumothorax, widened mediastinum, or any other acute process. Labs show thrombocytopenia consistent with previous visits, but otherwise the labs ar e mostly unremarkable including metabolic panel and a negative troponin. Patient was reevaluated multiple times over multiple hours and remained stable throughout his ED course. He will be discharged home to follow-up with a primary care physician. His contact information has been sent over to the [facility] [place], and someone from their office should be contacting him shortly for close outpatient follow-up as part of our hospital-based chest pain protocol. Critical Care Time: No Critical care attestation.: If time is entered above; I have spent that time in minutes in the direct care of this critically ill patient, excluding procedure time. ED Disposition Clinical Impression: Chronic back pain, Chest pain Disposition: TO HOME OR SELFCARE Is pt being admited?: No Condition: Stable Instructions: Nonspecific Chest Pain, Adult, Chronic Back Pain Additional Instructions: Please follow-up with a primary care physician in the next few days. I am sending your contact information over to the [facility] [place], and someone from their office should be contacting you shortly for close outpatient follow-up. Just in case, I am giving a referral for one of their hay farmer, Dr. Betancourt. Return to the emergency department with any worsening of your symptoms, new or concerning symptoms not addressed during this current emergency department visit, or with any acute distress. Referrals: CHANTELLE BETANCOURT MD [Staff Physician] - 3-5 Days BOWEN HERNDON MD [Staff Physician] - 3-5 Days [facility] [Provider Group] - 3-5 Days Time of Disposition: 05:49
[2020-08-10 05:18] LABS: Hypochromasia 1+; Total Cells Counted 100
[2020-08-10 05:19] LABS: Platelet Estimate Consistent w Auto; Smudge Cells Few
[2020-08-10 05:42] LABS: Blood Urea Nitrogen 4 mg/dL (9-20); Hemolysis Index 47
[2020-08-10 05:44] LABS: BUN/Creatinine Ratio 7
[2020-08-10 05:53] VITALS: BP 111/74
--- NOTE | 2020-08-10 08:06 | XRay Report ---
CHEST 1 VIEW INDICATION: SOB COMPARISON: 08/08/2020 FINDINGS: SUPPORT DEVICES: None. HEART / MEDIASTINUM: No significant abnormality. LUNGS / PLEURA: No significant pulmonary or pleural abnormality. No pneumothorax. ADDITIONAL FINDINGS: IMPRESSION: 1. No acute cardiopulmonary disease Signer Name: Nav Kirby MD Signed: 08/10/2020 4:20 AM Workstation Name: [id number]
--- NOTE | 2020-08-11 09:59 | Electrocardiograph Report ---
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
== END 2020-08-10 06:40 | disposition home or self-care (01) ==
LOC: EDBD → ED 23:27
DX: R07.89 Other chest pain (principal); M54.6 Pain in thoracic spine; G89.29 Other chronic pain; I10 Essential (primary) hypertension; I25.2 Old myocardial infarction; F17.200 Nicotine dependence, unspecified, uncomplicated; Z98.890 Other specified postprocedural states; Z79.899 Other long term (current) drug therapy
CPT/HCPCS: 36415; 71045; 80048; 84484; 85007; 85025; 93005

== ENCOUNTER 2020-08-11 01:01 | Emergency (ER) | payer MEDICAID ==
[2020-08-11 01:55] VITALS: BP 122/77
[2020-08-11 03:05] LABS: Basophils % (Auto) 1.3 % (0.0-1.8); Eosinophils # (Auto) 0.1 K/mm3 (0.0-0.4); Eosinophils % (Auto) 2.6 % (0.0-4.3); Hematocrit 35.2 % (35.5-45.6); Hemoglobin 11.9 gm/dl (11.8-15.2); Lymphocytes # (Auto) 1.3 K/mm3 (1.2-5.4); Lymphocytes % (Auto) 40.7 % (13.4-35.0); Mean Corpuscular HGB Conc 34 % (32-34); Mean Corpuscular Volume 89 fl (84-94); Monocytes # (Auto) 0.4 K/mm3 (0.0-0.8); Monocytes % (Auto) 12.4 % (0.0-7.3); Red Blood Count 3.94 M/mm3 (3.65-5.03)
[2020-08-11 03:09] LABS: Platelet Count 76 K/mm3 (140-440)
[2020-08-11 03:25] LABS: Alanine Aminotransferase 91 units/L (7-56); Albumin 4.2 g/dL (3.9-5); Blood Urea Nitrogen 4 mg/dL (9-20); Calcium 8.5 mg/dL (8.4-10.2); Hemolysis Index 2
[2020-08-11 03:29] LABS: BUN/Creatinine Ratio 6
--- NOTE | 2020-08-11 11:20 | Event Note ---
ED Screening Note ED Screening Note: pt co n/v; vomiting bile ambulatory nad on triage No life threat identified vss This initial assessment/diagnostic orders/clinical plan/treatment(s) is/are subject to change based on patients health status, clinical progression and re- assessment by fellow clinical providers in the ED. Further treatment and workup at subsequent clinical providers discretion. Patient/guardian urged not to elope from the ED as their condition may be serious if not clinically assessed and managed. Initial orders include: ua/labs
== END 2020-08-11 11:37 | disposition left against medical advice (07) ==
LOC: EDBD → ED 01:01
DX: M54.9 Dorsalgia, unspecified (principal); Z53.21 Procedure and treatment not carried out due to patient leaving prior to being seen by health care provider
CPT/HCPCS: 36415; 80053; 83690; 85025

== ENCOUNTER 2020-08-11 23:22 | Emergency (ER) | payer MEDICAID ==
[2020-08-12 00:34] LABS: Hematocrit 34.2 % (35.5-45.6); Hemoglobin 11.4 gm/dl (11.8-15.2); Mean Corpuscular HGB Conc 33 % (32-34); Mean Corpuscular Volume 88 fl (84-94); Red Blood Count 3.88 M/mm3 (3.65-5.03); Red Cell Distribution Width 16.2 % (13.2-15.2)
[2020-08-12 00:47] LABS: Platelet Count 81 K/mm3 (140-440)
[2020-08-12 00:58] LABS: Alanine Aminotransferase 92 units/L (7-56); Albumin 4.2 g/dL (3.9-5); Blood Urea Nitrogen 4 mg/dL (9-20); Calcium 8.4 mg/dL (8.4-10.2); Hemolysis Index 8
[2020-08-12 00:59] LABS: BUN/Creatinine Ratio 7
[2020-08-12] MEDS ORDERED: ONDANSETRON 4 MG/2 ML INJ IV ONE (01:24)
[2020-08-12] MEDS ORDERED: SODIUM CHLORIDE 0.9% 1000 ML 1,000 ML IV ONE (01:24)
[2020-08-12] MEDS ORDERED: MORPHINE 4 MG/1 ML INJ IV ONE (01:25)
[2020-08-12 04:02] LABS: Total Cells Counted 100
[2020-08-12 04:03] LABS: Anisocytosis 1+; Platelet Estimate Consistent w Auto
[2020-08-12 06:23] VITALS: BP 104/60
== END 2020-08-12 03:30 | disposition home or self-care (01) ==
LOC: EDBD → ED 23:22
DX: K85.90 Acute pancreatitis without necrosis or infection, unspecified (principal); K76.0 Fatty (change of) liver, not elsewhere classified; N40.0 Benign prostatic hyperplasia without lower urinary tract symptoms; R79.89 Other specified abnormal findings of blood chemistry; R74.8 Abnormal levels of other serum enzymes; I10 Essential (primary) hypertension; I25.2 Old myocardial infarction; F17.200 Nicotine dependence, unspecified, uncomplicated; Z98.890 Other specified postprocedural states; Z79.899 Other long term (current) drug therapy
CPT/HCPCS: 36415; 74177; 80053; 83690; 85007; 85025; 96361; 96374; 96375; 99284; J2270; J2405; J7030; Q9967

== ENCOUNTER 2020-08-13 00:39 | Emergency (ER) | payer MEDICAID ==
[2020-08-13 06:39] VITALS: BP 118/65
== END 2020-08-13 06:38 | disposition home or self-care (01) ==
LOC: EDBD → ED 00:39
DX: G89.29 Other chronic pain (principal); R07.89 Other chest pain; I10 Essential (primary) hypertension; I25.2 Old myocardial infarction; F17.200 Nicotine dependence, unspecified, uncomplicated; Z98.890 Other specified postprocedural states; Z79.899 Other long term (current) drug therapy
CPT/HCPCS: 93005

== ENCOUNTER 2020-08-13 23:39 | Emergency (ER) | payer MEDICAID ==
--- NOTE | 2020-08-14 09:23 | Emergency Department Report ---
ED General Adult HPI - General Chief complaint: Medical Clearance Stated complaint: Abdominal cramping, nausea and vomiting PUI?: No Time Seen by Provider: 08/14/20 09:12 Source: patient, RN notes reviewed, old records reviewed Mode of arrival: Ambulatory Limitations: No Limitations - History of Present Illness Initial comments: The patient was evaluated in the emergency department for symptoms described in the history of present illness. He/she was evaluated in the context of the global COVID-19 pandemic, which necessitated consideration that the patient might be at risk for infection with the virus that causes COVID-19. Institutional protocols and algorithms that pertain to the evaluation of patients at risk for COVID-19 are in a state of rapid change based on information released by regulatory bodies including the CDC and federal and state organizations. These policies and algorithms were followed during the clementina carla's care in the emergency department. Please note that these policies, procedures and recommendations changed on a rapid basis. The patient is a 59-year-old gentleman, who is well-known to myself and to this department. The patient is a frequent utilizer of this emergency room. He had a cardiac catheterization in 2019, which showed minimal disease, and medical management was recommended. He was recently diagnosed with mild pancreatitis at this hospital, 2 days ago, and discharged with supportive care. The patient presents to the ER today with his typical complaints of abdominal cramping, nausea, vomiting and chest tightness. The patient denies headache, neck pain, exertional shortness of breath, diaphoresis, leg pain, leg swelling. The patient is homeless, and states "I am not interested in going to a homeless senior living." The patient states that he is not currently consuming alcohol. The patient denies urinary symptoms. The patient states he is now hungry and would like to eat. -: Gradual, days(s) Location: abdomen Radiation: non-radiation Quality: aching Consistency: intermittent Improves with: none Worsens with: none - Related Data Previous Rx's Medication Instructions Recorded Last Taken Type Aspirin 325 mg PO QDAY #30 tablet 10/23/19 Unknown Rx Metoprolol [Lopressor TAB] 25 mg PO BID #60 tablet 10/23/19 Unknown Rx Aspirin 325 mg PO QDAY #30 tablet 05/16/20 Unknown Rx Metoprolol [Lopressor TAB] 25 mg PO BID #60 tablet 05/16/20 Unknown Rx Pravastatin [Pravachol] 20 mg PO QHS #30 tablet 05/16/20 Unknown Rx Ondansetron [Zofran ODT TAB] 4 mg PO Q8HR #14 tab.rapdis 07/24/20 Unknown Rx Ondansetron [Zofran Odt] 4 mg PO Q8HR PRN #10 tab.rapdis 08/12/20 Unknown Rx Esomeprazole Magnesium [NexIUM] 40 mg PO QDAY #30 capsule. 08/14/20 Unknown Rx Folic Acid [Folvite] 1 mg PO QDAY #30 tablet 08/14/20 Unknown Rx Multivitamin with Folic Acid [Cvs 400 mcg PO QDAY #30 tablet 08/14/20 Unknown Rx One Daily Essential Tablet] Pantoprazole [Protonix TAB] 40 mg PO QDAY #30 tablet 08/14/20 Unknown Rx Thiamine [Vitamin B-1] 100 mg PO QDAY #30 tablet 08/14/20 Unknown Rx Allergies Allergy/AdvReac Type Severity Reaction Status Date / Time No Known Allergies Allergy Verified 05/31/20 00:31 ED Review of Systems ROS: Stated complaint: CHEST PAIN, N/V Other details as noted in HPI Constitutional: denies: fever Eyes: denies: eye discharge ENT: denies: epistaxis Respiratory: denies: cough Cardiovascular: chest pain Gastrointestinal: abdominal pain, nausea, vomiting Musculoskeletal: back pain Neurological: denies: weakness Psychiatric: denies: homicidal thoughts, suicidal thoughts ED Past Medical Hx - Past Medical History Previous Medical History?: Yes Hx Hypertension: Yes Hx CVA: Yes (left) Hx Heart Attack/AMI: Yes Hx Congestive Heart Failure: No Hx Diabetes: No Hx Asthma: No Hx COPD: No Hx HIV: No Additional medical history: chronic pain in back, neck and L knee, ETOH abuse. herniated disc - Surgical History Past Surgical History?: Yes Additional Surgical History: Left Knee. skin graft to right hand, left hip surgery - Social History Smoking Status: Unknown if ever smoked - Medications Home Medications: Home Medications Medication Instructions Recorded Confirmed Last Taken Type Aspirin 325 mg PO QDAY #30 tablet 10/23/19 Unknown Rx Metoprolol [Lopressor TAB] 25 mg PO BID #60 tablet 10/23/19 Unknown Rx Aspirin 325 mg PO QDAY #30 tablet 05/16/20 Unknown Rx Metoprolol [Lopressor TAB] 25 mg PO BID #60 tablet 05/16/20 Unknown Rx Pravastatin [Pravachol] 20 mg PO QHS #30 tablet 05/16/20 Unknown Rx Ondansetron [Zofran ODT TAB] 4 mg PO Q8HR #14 tab.rapdis 07/24/20 Unknown Rx Ondansetron [Zofran Odt] 4 mg PO Q8HR PRN #10 tab.rapdis 08/12/20 Unknown Rx Esomeprazole Magnesium [NexIUM] 40 mg PO QDAY #30 capsule. 08/14/20 Unknown R x Folic Acid [Folvite] 1 mg PO QDAY #30 tablet 08/14/20 Unknown Rx Multivitamin with Folic Acid [Cvs 400 mcg PO QDAY #30 tablet 08/14/20 Unknown Rx One Daily Essential Tablet] Pantoprazole [Protonix TAB] 40 mg PO QDAY #30 tablet 08/14/20 Unknown Rx Thiamine [Vitamin B-1] 100 mg PO QDAY #30 tablet 08/14/20 Unknown Rx ED Physical Exam - General Limitations: No Limitations General appearance: alert, in no apparent distress - Head Head exam: Present: atraumatic, normocephalic - Eye Eye exam: Present: normal appearance, EOMI. Absent: nystagmus - ENT ENT exam: Present: normal exam, normal orophraynx, mucous membranes moist, normal external ear exam - Neck Neck exam: Present: normal inspection, full ROM. Absent: tenderness, men ingismus - Respiratory Respiratory exam: Present: normal lung sounds bilaterally. Absent: respiratory distress, wheezes, rales, rhonchi, stridor, decreased breath sounds - Cardiovascular Cardiovascular Exam: Present: regular rate, normal rhythm, normal heart sounds. Absent: bradycardia, tachycardia, irregular rhythm, systolic murmur, diastolic murmur, rubs, gallop - GI/Abdominal GI/Abdominal exam: Present: soft, normal bowel sounds. Absent: distended, tenderness, guarding, rebound, rigid, pulsatile mass - Rectal Rectal exam: Present: deferred - Extremities Exam Extremities exam: Present: normal inspection, full ROM, other (2+ pulses noted in the bilateral upper and lower extremities. There is no palpable cord. negative Homans sign. Muscular compartments are soft. The pelvis is stable.). Absent: calf tenderness - Back Exam Back exam: Present: normal inspection, full ROM. Absent: tenderness, CVA tenderness (R), CVA tenderness (L), paraspinal tenderness, vertebral tenderness - Neurological Exam Neurological exam: Present: alert, normal gait, other (No facial droop. Tongue midline. Extraocular movements intact bilaterally. Facial sensation intact to light touch in V1, V2, V3 distribution bilaterally. 5 and a 5 strength in 4 extremities. Sensation intact to light touch in 4 extremities.). Absent: motor sensory deficit - Psychiatric Psychiatric exam: Present: normal affect, normal mood. Absent: homicidal ideation, suicidal ideation - Skin Skin exam: Present: warm, dry, intact, normal color. Absent: rash ED Course Vital Signs 08/14/20 08/14/20 02:59 10:29 Temperature 98.7 F Pulse Rate 113 H Respiratory 16 Rate Blood Pressure 115/81 O2 Sat by Pulse 97 Oximetry O2 Sat by Pulse 98 Oximetry [ Digit-Finger] - Reevaluation(s) Reevaluation #1: 08/14/20 09:27 Differential diagnosis, including but not limited to: GERD, gastritis, hiatal hernia, pancreatitis, alcohol dependence, homelessness, case management patient Assessment and plan: 59-year-old gentleman presenting with his typical complaint of abdominal cramping, nausea, vomiting and chest tightness. Recent CT scan on August 12 reviewed and appreciated. Abdomen soft and benign, without rebound, guarding or peritoneal signs at this time. EKG unchanged from prior. The patient is not homicidal or suicidal. He does exhibit decision-making capacity. He does not want placement into a homeless senior living. Treat symptoms, obtain EKG, laboratory studies, x-ray, if no acute findings, discharge. Patient was recently discharged this morning by my colleague for similar symptoms. Do not suspect acute pathology at this time. 08/14/20 10:28 Patient in no acute distress. Sleeping comfortably. No active vomiting. Tachycardia resolved, heart rate 90 bpm. Leukopenia thrombocytopenia likely secondary to chronic alcoholism. 08/14/20 10:52 No active vomiting at this time. Resting comfortably and in no acute distress. Transaminitis is chronic, likely secondary to alcoholic liver disease. Elevated lipase reviewed and appreciated. Patient has no abdominal tenderness at this time, we have not witnessed any nausea or vomiting. Patient is also clinically sober at this time. Does not appear to have an emergent medical condition at this time which would require admission or hospitalization. - Pulse Oximetry Interpretation Digit-Finger Initial Pulse Oximetry Readin O2 Sat by Pulse Oximetry: 98 Actions Taken: none ED Medical Decision Making - Lab Data Result diagrams: 08/14/20 09:59 08/14/20 09:59 Vital Signs 08/14/20 02:59 Temperature 98.7 F Pulse Rate 113 H Respiratory 16 Rate Blood Pressure 115/81 O2 Sat by Pulse 97 Oximetry Lab Results 08/14/20 08/14/20 08/14/20 Range/Units 09:58 09:59 09:59 WBC 2.5 L (4.5-11.0) K/mm3 RBC 4.00 (3.65-5.03) M/mm3 Hgb 11.8 (11.8-15.2) gm/dl Hct 35.3 L (35.5-45.6) % MCV 88 (84-94) fl MCH 29 (28-32) pg MCHC 33 (32-34) % RDW 16.0 H (13.2-15.2) % Plt Count 85 L (140-440) K/mm3 Sodium 137 (137-145) mmol/L Potassium 3.9 (3.6-5.0) mmol/L Chloride 99.3 (98-107) mmol/L Carbon Dioxide 24 (22-30) mmol/L Anion Gap 18 mmol/L BUN 5 L (9-20) mg/dL Creatinine 0.5 L (0.8-1.3) mg/dL Estimated GFR > 60 ml/min BUN/Creatinine Ratio 10 % Glucose 83 (75-100) mg/dL Calcium 8.8 (8.4-10.2) mg/dL Magnesium 2.30 (1.7-2.3) mg/dL Total Bilirubin 0.70 (0.1-1.2) mg/dL AST 356 H (5-40) units/L ALT 99 H (7-56) units/L Alkaline Phosphatase 230 H (35-129) units/L Total Creatine Kinase 242 H (55-170) units/L Troponin T < 0.010 (0.00-0.029) ng/mL Total Protein 6.8 (6.3-8.2) g/dL Albumin 3.9 (3.9-5) g/dL Albumin/Globulin Ratio 1.3 % Lipase (13-60) units/L Salicylates < 0.3 L (2.8-20.0) mg/dL Plasma/Serum Alcohol (0-0.07) % 08/14/20 08/14/20 Range/Units 09:59 09:59 WBC (4.5-11.0) K/mm3 RBC (3.65-5.03) M/mm3 Hgb (11.8-15.2) gm/dl Hct (35.5-45.6) % MCV (84-94) fl MCH (28-32) pg MCHC (32-34) % RDW (13.2-15.2) % Plt Count (140-440) K/mm3 Sodium (137-145) mmol/L Potassium (3.6-5.0) mmol/L Chloride (98-107) mmol/L Carbon Dioxide (22-30) mmol/L Anion Gap mmol/L BUN (9-20) mg/dL Creatinine (0.8-1.3) mg/dL Estimated GFR ml/min BUN/Creatinine Ratio % Glucose (75-100) mg/dL Calcium (8.4-10.2) mg/dL Magnesium (1.7-2.3) mg/dL Total Bilirubin (0.1-1.2) mg/dL AST (5-40) units/L ALT (7-56) units/L Alkaline Phosphatase (35-129) units/L Total Creatine Kinase (55-170) units/L Troponin T (0.00-0.029) ng/mL Total Protein (6.3-8.2) g/dL Albumin (3.9-5) g/dL Albumin/Globulin Ratio % Lipase 185 H (13-60) units/L Salicylates (2.8-20.0) mg/dL Plasma/Serum Alcohol 0.14 H (0-0.07) % - EKG Data -: EKG Interpreted by Nd EKG shows normal: sinus rhythm Rate: normal - EKG Data When compared to previous EKG there are: no significant change 08/14/20 09:26 EKG interpreted at 09: 15 Unchanged from prior EKG from 08/09/2020 Sinus rhythm, 93 bpm. Normal axis, CO interval 203 ms, left ventricular hypertrophy, poor R wave progression, minimal motion artifact. Not a STEMI. - Radiology Data Radiology results: pending, report reviewed (Prior imaging studies reviewed and appreciated), image reviewed 1 view x-ray of the chest negative for acute findings Critical care attestation.: If time is entered above; I have spent that time in minutes in the direct care of this critically ill patient, excluding procedure time. ED Disposition Clinical Impression: Alcoholism, Chronic pain, Abdominal pain, Homelessness, Elevated LFTs, ETOH abuse Disposition: - TO HOME OR SELFCARE Is pt being admited?: No Does the pt Need Aspirin: No Condition: Good Additional Instructions: We recommend that patient minimize/avoid consumption of alcohol. Long-term co nsumption of alcohol may cause liver disease, liver cancer, pancreatitis, cardiac disease, and. Take the pain medication, nausea medication, multivitamins as needed and directed. Follow-up with a primary care doctor within the next 2 to 4 weeks. Please return to the emergency room right away with new pain, worsened pain, migration of pain, projectile vomiting, change in mental status, confusion, inability to tolerate liquid feeds, new, worsened or different symptoms not present on the initial emergency room evaluation. Referrals: MATHEW REAVES MD [Staff Physician] - 3-5 Days [facility] [Provider Group] - 3-5 Days
[2020-08-14] MEDS ORDERED: ONDANSETRON 4 MG ODT TAB PO STA (09:28)
[2020-08-14] MEDS ORDERED: PANTOPRAZOLE 40 MG TAB PO ONE (09:28)
--- NOTE | 2020-08-14 10:04 | XRay Report ---
CHEST 1 VIEW 08/14/2020 8:55 AM INDICATION / CLINICAL INFORMATION: Chest pain. COMPARISON: 08/10/20. FINDINGS: SUPPORT DEVICES: None. HEART / MEDIASTINUM: The heart size and pulmonary vasculature are normal. There is mild aortic tortuo sity without aneurysm. LUNGS / PLEURA: No significant pulmonary or pleural abnormality. No pneumothorax. ADDITIONAL FINDINGS: There are old posttraumatic changes involving the left coracoclavicular ligament . IMPRESSION: No acute abnormality or significant change. Signer Name: Dany Laboy MD Signed: 08/14/2020 9:59 AM Workstation Name: [id number]
[2020-08-14 10:14] LABS: Hematocrit 35.3 % (35.5-45.6); Hemoglobin 11.8 gm/dl (11.8-15.2); Mean Corpuscular HGB Conc 33 % (32-34); Mean Corpuscular Volume 88 fl (84-94)
[2020-08-14 10:25] LABS: Platelet Count 85 K/mm3 (140-440)
[2020-08-14 10:47] LABS: Alanine Aminotransferase 99 units/L (7-56); Albumin 3.9 g/dL (3.9-5); Blood Urea Nitrogen 5 mg/dL (9-20); Calcium 8.8 mg/dL (8.4-10.2); Hemolysis Index 10
[2020-08-14 10:48] LABS: BUN/Creatinine Ratio 10
[2020-08-14 15:39] VITALS: BP 126/75
--- NOTE | 2020-08-24 10:28 | Electrocardiograph Report ---
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
== END 2020-08-14 12:35 | disposition home or self-care (01) ==
LOC: EDBD → ED 23:39
DX: F10.10 Alcohol abuse, uncomplicated (principal); R79.89 Other specified abnormal findings of blood chemistry; R10.9 Unspecified abdominal pain; G89.29 Other chronic pain; Z59.0 Homelessness; I10 Essential (primary) hypertension; I25.2 Old myocardial infarction; Z98.890 Other specified postprocedural states; Z79.899 Other long term (current) drug therapy
CPT/HCPCS: 36415; 71045; 80053; 80320; 82550; 83690; 83735; 84484; 85027; 93005; G0480; Q0162

== ENCOUNTER 2020-08-15 00:18 | Emergency (ER) | payer MEDICAID ==
[2020-08-15 01:06] VITALS: BP 128/74
[2020-08-15] MEDS ORDERED: FAMOTIDINE 20 MG TAB PO ONE (04:31)
[2020-08-15] MEDS ORDERED: ONDANSETRON 4 MG ODT TAB PO ONE (04:31)
[2020-08-15] MEDS ORDERED: ACETAMINOPHEN 500 MG TAB PO ONE (04:31)
--- NOTE | 2020-08-15 05:37 | Emergency Department Report ---
ED Back Pain/Injury HPI - General Chief Complaint: Back Pain/Injury Stated Complaint: SOB/BACK PAIN/NAUSEA Source: patient Limitations: No Limitations - History of Present Illness Initial Comments: Patient is a 59-year-old -[place] male with a history of chronic low back pain, herniated lumbar disc disease, hypertension, CVA, coronary artery disease s/p AL and who presents to the ED with complaint of acute exacerbation of his chronic low back pain with nausea for the last 3 months, and states that he has not filled any prescription previously written for him for pain. Patient states that the medication that previously been given to him in the ED have helped and he would like a similar medications to be administered to him although he admits that he has never filled any prescriptions. Patient describes his low back pain is typical of his chronic low back pain that he has had for years but which got worse in the last 3 months. Patient also states that he has not followed up with his primary care physician as previously advised. Patient states that he was treated for the same about 12 hours ago in this ED but he has not filled any prescriptions written for him. Patient denies chest pain, dizziness, syncope, fall, traumatic injury, hematuria, dysuria, urinary frequency and urgency, shortness of breath, fever, diarrhea, nausea and vomiting, seizures or change in vision. MD Complaint: back pain (CHRONIC Pain), other (chronic lumbar disc disease) -: Gradual, year(s) (10) Similar Symptoms Previously: Yes (Chronic low back pain) Place: street Radiation: none Severity: moderate Severity scale (0 -10): 7 Quality: sharp, aching Consistency: constant Improves With: none Worsens With: movement, walking Context: turning/twisting Associated Symptoms: denies other symptoms, other (Nausea). denies: confusion, weakness, numbness, difficulty walking, cough, difficulty urinating, diaphoresis, incontinence, fever/chills, headaches, abdominal pain, malaise, nausea/vomiting, rash, seizure, shortness of breath, syncope - Related Data Previous Rx's Medication Instructions Recorded Last Taken Type Aspirin 325 mg PO QDAY #30 tablet 10/23/19 Unknown Rx Metoprolol [Lopressor TAB] 25 mg PO BID #60 tablet 10/23/19 Unknown Rx Aspirin 325 mg PO QDAY #30 tablet 05/16/20 Unknown Rx Metoprolol [Lopressor TAB] 25 mg PO BID #60 tablet 05/16/20 Unknown Rx Pravastatin [Pravachol] 20 mg PO QHS #30 tablet 05/16/20 Unknown Rx Ondansetron [Zofran ODT TAB] 4 mg PO Q8HR #14 tab.rapdis 07/24/20 Unknown Rx Ondansetron [Zofran Odt] 4 mg PO Q8HR PRN #10 tab.rapdis 08/12/20 Unknown Rx Esomeprazole Magnesium [NexIUM] 40 mg PO QDAY #30 capsule. 08/14/20 Unknown Rx Folic Acid [Folvite] 1 mg PO QDAY #30 tablet 08/14/20 Unknown Rx Multivitamin with Folic Acid [[facility] 400 mcg PO QDAY #30 tablet 08/14/20 Unknown Rx One Daily Essential Tablet] Pantoprazole [Protonix TAB] 40 mg PO QDAY #30 tablet 08/14/20 Unknown Rx Thiamine [Vitamin B-1] 100 mg PO QDAY #30 tablet 08/14/20 Unknown Rx Allergies Allergy/AdvReac Type Severity Reaction Status Date / Time No Known Allergies Allergy Verified 05/31/20 00:31 ED Review of Systems ROS: Stated complaint: SOB/BACK PAIN/NAUSEA Other details as noted in HPI Constitutional: denies: chills, fever Eyes: denies: eye pain, eye discharge, vision change ENT: denies: ear pain, throat pain Respiratory: denies: cough, shortness of breath, wheezing Cardiovascular: denies: chest pain, palpitations Endocrine: no symptoms reported Gastrointestinal: nausea. denies: abdominal pain, vomiting, diarrhea Genitourinary: denies: urgency, dysuria Musculoskeletal: back pain (Low back pain, baseline and chronic), arthralgia. denies: joint swelling Skin: denies: rash, lesions Neurological: denies: headache, weakness, paresthesias Psychiatric: denies: anxiety, depression Hematological/Lymphatic: denies: easy bleeding, easy bruising ED Past Medical Hx - Past Medical History Hx Hypertension: Yes Hx CVA: Yes (left) Hx Heart Attack/AMI: Yes Hx Congestive Heart Failure: No Hx Diabetes: No Hx Asthma: No Hx COPD: No Hx HIV: No Additional medical history: chronic pain in back, neck and L knee, ETOH abuse. herniated disc - Surgical History Additional Surgical History: Left Knee. skin graft to right hand, left hip surgery - Social History Smoking Status: Never Smoker Substance Use Type: None - Medications Home Medications: Home Medications Medication Instructions Recorded Confirmed Last Taken Type Aspirin 325 mg PO QDAY #30 tablet 10/23/19 Unknown Rx Metoprolol [Lopressor TAB] 25 mg PO BID #60 tablet 10/23/19 Unknown Rx Aspirin 325 mg PO QDAY #30 tablet 05/16/20 Unknown Rx Metoprolol [Lopressor TAB] 25 mg PO BID #60 tablet 05/16/20 Unknown Rx Pravastatin [Pravachol] 20 mg PO QHS #30 tablet 05/16/20 Unknown Rx Ondansetron [Zofran ODT TAB] 4 mg PO Q8HR #14 tab.rapdis 07/24/20 Unknown Rx Ondansetron [Zofran Odt] 4 mg PO Q8HR PRN #10 tab.rapdis 08/12/20 Unknown Rx Esomeprazole Magnesium [NexIUM] 40 mg PO QDAY #30 capsule. 08/14/20 Unknown Rx Folic Acid [Folvite] 1 mg PO QDAY #30 tablet 08/14/20 Unknown Rx Multivitamin with Folic Acid [[facility] 400 mcg PO QDAY #30 tablet 08/14/20 Unknown Rx One Daily Essential Tablet] Pantoprazole [Protonix TAB] 40 mg PO QDAY #30 tablet 08/14/20 Unknown Rx Thiamine [Vitamin B-1] 100 mg PO QDAY #30 tablet 08/14/20 Unknown Rx ED Physical Exam - General Limitations: No Limitations General appearance: alert, in no apparent distress - Head Head exam: Present: atraumatic, normocephalic - Eye Eye exam: Present: normal appearance, PERRL, EOMI Pupils: Present: normal accommodation - ENT ENT exam: Present: normal exam, normal orophraynx, mucous membranes moist, TM's normal bilaterally, normal external ear exam - Neck Neck exam: Present: normal inspection, full ROM. Absent: tenderness - Respiratory Respiratory exam: Present: normal lung sounds bilaterally. Absent: respiratory distress, wheezes, rales, rhonchi, stridor, chest wall tenderness, accessory muscle use, decreased breath sounds, prolonged expiratory - Cardiovascular Cardiovascular Exam: Present: regular rate, normal rhythm, normal heart sounds. Absent: systolic murmur, diastolic murmur, rubs, gallop - GI/Abdominal GI/Abdominal exam: Present: soft, normal bowel sounds. Absent: tenderness, guarding, rebound, hyperactive bowel sounds, hypoactive bowel sounds, organomegaly - Extremities Exam Extremities exam: Present: normal inspection, full ROM, normal capillary refill - Back Exam Back exam: Present: normal inspection, full ROM, tenderness (Palpable lumbosacral paraspinal musculoskeletal tenderness), muscle spasm, paraspinal tenderness. Absent: CVA tenderness (R), CVA tenderness (L), vertebral tenderness, rash noted - Neurological Exam Neurological exam: Present: alert, oriented X3, CN II-XII intact, normal gait, reflexes normal - Psychiatric Psychiatric exam: Present: normal affect, normal mood - Skin Skin exam: Present: warm, dry, intact, normal color. Absent: rash ED Course Vital Signs 08/15/20 01:02 Temperature 97.8 F Pulse Rate 68 Respiratory 16 Rate Blood Pressure 128/74 O2 Sat by Pulse 100 Oximetry ED Medical Decision Making - Medical Decision Making This is a 59-year-old -[place]anese male with a history of chronic low back pain, herniated lumbar disc disease, hypertension, CVA, coronary artery disease s/p AL and who presents to the ED with complaint of acute exacerbation of his chronic low back pain with nausea for the last 3 months, and states that he has not filled any prescription previously written for him for pain. Patient states that the medication that previously been given to him in the ED have helped and he would like a similar medications to be administered to him although he admits that he has never filled any prescriptions. Patient describes his low back pain is typical of his chronic low back pain that he has had for years but which got worse in the last 3 months. Patient also states that he has not followed up with his primary care physician as previously advised. Patient states that he was treated for the same about 12 hours ago in this ED but he has not filled any prescriptions written for him. In the ED, patient is alert and oriented x3 and is not in any distress with normal vital signs. Patient is fully ambulatory in the ED, although pushing his wheelchair along with his belongings. Patient was treated for pain in the ED and on reevaluation, patient felt better, fell asleep in the ED but arousable. Patient is hemodynamically stable. Patient was discharged home and advised to ensure that he feels his prescription that were previously written for him and to follow-up with his primary care physician in 3 to 5 days for reevaluation. Patient was advised return to the ED immediately if symptoms get worse - Differential Diagnosis Chronic pain syndrome; lumbar disc disease; muscle spasm Critical care attestation.: If time is entered above; I have spent that time in minutes in the direct care of this critically ill patient, excluding procedure time. ED Disposition Clinical Impression: Chronic bilateral low back pain without sciatica Disposition: TO HOME OR SELFCARE Is pt being admited?: No Does the pt Need Aspirin: No Condition: Stable Instructions: Chronic Back Pain, [id number] Additional Instructions: Refill and take the previously prescribed pain medications and follow-up with your primary care physician in 5 to 7 days for reevaluation. Return to the ED immediately if symptoms get worse. Referrals: [facility] [Provider Group] - 3-5 Days Time of Disposition: 05:39 Print Language: NAURUAN
--- NOTE | 2020-08-24 10:37 | Electrocardiograph Report ---
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
== END 2020-08-15 06:00 | disposition home or self-care (01) ==
LOC: EDBD → ED 00:18
DX: M54.42 Lumbago with sciatica, left side (principal); M54.41 Lumbago with sciatica, right side; I10 Essential (primary) hypertension; I25.2 Old myocardial infarction; Z98.890 Other specified postprocedural states; Z79.899 Other long term (current) drug therapy
CPT/HCPCS: 93005; 99282; Q0162

== ENCOUNTER 2020-08-16 00:22 | Emergency (ER) | payer MEDICAID ==
[2020-08-16] MEDS ORDERED: IBUPROFEN 400 MG TAB PO ONE (08:25)
--- NOTE | 2020-08-16 08:29 | Emergency Department Report ---
ED Back Pain/Injury HPI - General Chief Complaint: Back Pain/Injury Stated Complaint: BACKN PAIN/SOB/NAUSEA Time Seen by Provider: 08/16/20 08:15 Source: patient Limitations: No Limitations - History of Present Illness Initial Comments: 59-year-old male, history of chronic back pain, alcohol abuse, presents to ED with complaint of acute on chronic back pain. Patient states pain has been ongoing for the last 2 weeks. Patient reports history of herniated disks. He denies any recent trauma. Patient denies any fever, extremity numbness or weakness, urinary or bowel incontinence or retention. Patient was seen a couple days ago in this ER for same. Patient states while waiting in the waiting room last night he went over to [facility] and get his medications filled and took them, so he feels much better at this time. MD Complaint: back pain -: week(s) (2) Similar Symptoms Previously: Yes Radiation: none Severity: mild Quality: aching Consistency: intermittent Improves With: immobilization Worsens With: movement Associated Symptoms: denies: difficulty urinating, incontinence, fever/chills - Related Data Previous Rx's Medication Instructions Recorded Last Taken Type Aspirin 325 mg PO QDAY #30 tablet 10/23/19 Unknown Rx Metoprolol [Lopressor TAB] 25 mg PO BID #60 tablet 10/23/19 Unknown Rx Aspirin 325 mg PO QDAY #30 tablet 05/16/20 Unknown Rx Metoprolol [Lopressor TAB] 25 mg PO BID #60 tablet 05/16/20 Unknown Rx Pravastatin [Pravachol] 20 mg PO QHS #30 tablet 05/16/20 Unknown Rx Ondansetron [Zofran ODT TAB] 4 mg PO Q8HR #14 tab.rapdis 07/24/20 Unknown Rx Ondansetron [Zofran Odt] 4 mg PO Q8HR PRN #10 tab.rapdis 08/12/20 Unknown Rx Esomeprazole Magnesium [NexIUM] 40 mg PO QDAY #30 capsule. 08/14/20 Unknown Rx Folic Acid [Folvite] 1 mg PO QDAY #30 tablet 08/14/20 Unknown Rx Multivitamin with Folic Acid [[facility] 400 mcg PO QDAY #30 tablet 08/14/20 Unknown Rx One Daily Essential Tablet] Pantoprazole [Protonix TAB] 40 mg PO QDAY #30 tablet 08/14/20 Unknown Rx Thiamine [Vitamin B-1] 100 mg PO QDAY #30 tablet 08/14/20 Unknown Rx Allergies Allergy/AdvReac Type Severity Reaction Status Date / Time No Known Allergies Allergy Verified 08/16/20 08:16 ED Review of Systems ROS: Stated complaint: BACKN PAIN/SOB/NAUSEA Other details as noted in HPI Comment: All other systems reviewed and negative Musculoskeletal: back pain Neurological: other (Denies bladder or bowel incontinence or retention). denies: weakness, numbness ED Past Medical Hx - Past Medical History Hx Hypertension: Yes Hx CVA: Yes (left) Hx Heart Attack/AMI: Yes Hx Congestive Heart Failure: No Hx Diabetes: No Hx Asthma: No Hx COPD: No Hx HIV: No Additional medical history: chronic pain in back, neck and L knee, ETOH abuse. herniated disc - Surgical History Additional Surgical History: Left Knee. skin graft to right hand, left hip surgery - Social History Smoking Status: Unknown if ever smoked Substance Use Type: Alcohol - Medications Home Medications: Home Medications Medication Instructions Recorded Confirmed Last Taken Type Aspirin 325 mg PO QDAY #30 tablet 10/23/19 Unknown Rx Metoprolol [Lopressor TAB] 25 mg PO BID #60 tablet 10/23/19 Unknown Rx Aspirin 325 mg PO QDAY #30 tablet 05/16/20 Unknown Rx Metoprolol [Lopressor TAB] 25 mg PO BID #60 tablet 05/16/20 Unknown Rx Pravastatin [Pravachol] 20 mg PO QHS #30 tablet 05/16/20 Unknown Rx Ondansetron [Zofran ODT TAB] 4 mg PO Q8HR #14 tab.rapdis 07/24/20 Unknown Rx Ondansetron [Zofran Odt] 4 mg PO Q8HR PRN #10 tab.rapdis 08/12/20 Unknown Rx Esomeprazole Magnesium [NexIUM] 40 mg PO QDAY #30 capsule. 08/14/20 Unknown Rx Folic Acid [Folvite] 1 mg PO QDAY #30 tablet 08/14/20 Unknown Rx Multivitamin with Folic Acid [[facility] 400 mcg PO QDAY #30 tablet 08/14/20 Unknown Rx One Daily Essential Tablet] Pantoprazole [Protonix TAB] 40 mg PO QDAY #30 tablet 08/14/20 Unknown Rx Thiamine [Vitamin B-1] 100 mg PO QDAY #30 tablet 06/07/21 Unknown Rx ED Physical Exam - General Limitations: No Limitations General appearance: alert, in no apparent distress - Head Head exam: Present: atraumatic, normocephalic - Eye Eye exam: Present: normal appearance, EOMI - ENT ENT exam: Present: mucous membranes moist - Neck Neck exam: Present: normal inspection - Respiratory Respiratory exam: Present: normal lung sounds bilaterally. Absent: respiratory distress - Cardiovascular Cardiovascular Exam: Present: regular rate, normal rhythm - GI/Abdominal GI/Abdominal exam: Present: soft. Absent: distended, tenderness - Extremities Exam Extremities exam: Present: normal inspection - Back Exam Back exam: Present: paraspinal tenderness (Lumbar region) - Neurological Exam Neurological exam: Present: alert, oriented X3 - Psychiatric Psychiatric exam: Present: normal affect, normal mood - Skin Skin exam: Present: warm, dry, intact, normal color ED Course Vital Signs 08/16/20 08/16/20 00:35 11:02 Temperature 98.2 F 98.4 F Pulse Rate 74 82 Respiratory 18 20 Rate Blood Pressure 119/68 Blood Pressure 133/85 [Left] O2 Sat by Pulse 97 98 Oximetry ED Medical Decision Making - Medical Decision Making Chronic back pain. Vital stable. Patient feeling much better, will discharge at this time. Patient ambulated out of ER. - Differential Diagnosis Chronic back pain Critical care attestation.: If time is entered above; I have spent that time in minutes in the direct care of this critically ill patient, excluding procedure time. ED Disposition Clinical Impression: Chronic back pain Disposition: DC-01 TO HOME OR SELFCARE Is pt being admited?: No Condition: Stable Instructions: Chronic Back Pain Referrals: EDY LAYNE MD [Primary Care Provider] - 3-5 Days [facility] [Provider Group] - 3-5 Days HÉCTOR LANIER II, MD [Staff Physician] - 3-5 Days Time of Disposition: 08:30
[2020-08-16 11:03] VITALS: BP 133/85
== END 2020-08-16 11:02 | disposition home or self-care (01) ==
LOC: EDBD → ED 00:22
DX: M54.6 Pain in thoracic spine (principal); G89.29 Other chronic pain; I10 Essential (primary) hypertension; I25.2 Old myocardial infarction; Z98.890 Other specified postprocedural states; Z79.899 Other long term (current) drug therapy
CPT/HCPCS: 99282

== ENCOUNTER 2020-08-17 00:29 | Emergency (ER) | payer MEDICAID ==
--- NOTE | 2020-08-17 00:47 | Event Note ---
ED Screening Note ED Screening Note: freq ER visits arrived around [place] social issue- homelessness see EMR This initial assessment/diagnostic orders/clinical plan/treatment(s) is/are subject to change based on patients health status, clinical progression and re- assessment by fellow clinical providers in the ED. Further treatment and workup at subsequent clinical providers discretion. Patient/guardian urged not to elope from the ED as their condition may be serious if not clinically assessed and managed. Initial orders include: reeval
[2020-08-17 03:24] LABS: Hematocrit 34.1 % (35.5-45.6); Hemoglobin 11.5 gm/dl (11.8-15.2); Mean Corpuscular HGB Conc 34 % (32-34); Mean Corpuscular Volume 90 fl (84-94); Red Blood Count 3.79 M/mm3 (3.65-5.03); Red Cell Distribution Width 16.9 % (13.2-15.2)
--- NOTE | 2020-08-17 03:28 | XRay Report ---
CHEST 2 VIEWS INDICATION / CLINICAL INFORMATION: Dyspnea. COMPARISON: 08/14/2020 FINDINGS: SUPPORT DEVICES: None. HEART / MEDIASTINUM: No significant abnormality. LUNGS / PLEURA: No significant pulmonary or pleural abnormality. No pneumothorax. ADDITIONAL FINDINGS: No significant additional findings. IMPRESSION: 1. No acute findings. No interval change. Signer Name: Poly Lazo MD Signed: 08/17/2020 3:23 AM Workstation Name: [id number]
[2020-08-17 03:37] LABS: Platelet Count 85 K/mm3 (140-440)
[2020-08-17 04:22] LABS: Alanine Aminotransferase 85 units/L (7-56); BUN/Creatinine Ratio 6; Blood Urea Nitrogen 4 mg/dL (9-20); Calcium 8.7 mg/dL (8.4-10.2); Hemolysis Index 8
[2020-08-17 04:36] LABS: Anisocytosis 1+; Hypochromasia 1+; Platelet Estimate Consistent w Auto; Total Cells Counted 100
--- NOTE | 2020-08-17 06:50 | Emergency Department Report ---
ED Shortness of Breath HPI - General Chief Complaint: Dyspnea/Respdistress Stated Complaint: BACKPAIN/NAUSEA/SOB/ Time Seen by Provider: 08/17/20 00:45 Source: patient Mode of arrival: Ambulatory Limitations: No Limitations - History of Present Illness Initial Comments: 59-year-old male, history of alcohol abuse, presents to ED for shortness of breath. Patient has multiple ER visits in the past. Patient is homeless. Last night, patient presented to ED with complaint of shortness of breath and back pain. I saw patient for back pain on yesterday. Back pain is chronic. Patient has no fever, extremity weakness or numbness, bowel or bladder incontinence or retention. Patient denies chest pain at baseline. He states that shortness of breath is resolved. MD Complaint: shortness of breath -: Last night Severity: mild Consistency: now resolved Improves With: nothing Worsens With: nothing Treatments Prior to Arrival: none - Related Data Previous Rx's Medication Instructions Recorded Last Taken Type Aspirin 325 mg PO QDAY #30 tablet 10/23/19 Unknown Rx Metoprolol [Lopressor TAB] 25 mg PO BID #60 tablet 10/23/19 Unknown Rx Aspirin 325 mg PO QDAY #30 tablet 05/16/20 Unknown Rx Metoprolol [Lopressor TAB] 25 mg PO BID #60 tablet 05/16/20 Unknown Rx Pravastatin [Pravachol] 20 mg PO QHS #30 tablet 05/16/20 Unknown Rx Ondansetron [Zofran ODT TAB] 4 mg PO Q8HR #14 tab.rapdis 07/24/20 Unknown Rx Ondansetron [Zofran Odt] 4 mg PO Q8HR PRN #10 tab.rapdis 08/12/20 Unknown Rx Esomeprazole Magnesium [NexIUM] 40 mg PO QDAY #30 capsule. 08/14/20 Unknown Rx Folic Acid [Folvite] 1 mg PO QDAY #30 tablet 08/14/20 Unknown Rx Multivitamin with Folic Acid [[facility] 400 mcg PO QDAY #30 tablet 08/14/20 Unknown Rx One Daily Essential Tablet] Pantoprazole [Protonix TAB] 40 mg PO QDAY #30 tablet 08/14/20 Unknown Rx Thiamine [Vitamin B-1] 100 mg PO QDAY #30 tablet 08/14/20 Unknown Rx Allergies Allergy/AdvReac Type Severity Reaction Status Date / Time No Known Allergies Allergy Verified 08/16/20 08:16 ED Review of Systems ROS: Stated complaint: BACKPAIN/NAUSEA/SOB/ Other details as noted in HPI Comment: All other systems reviewed and negative Constitutional: denies: fever Respiratory: shortness of breath Cardiovascular: denies: chest pain Musculoskeletal: back pain ED Past Medical Hx - Past Medical History Hx Hypertension: Yes Hx CVA: Yes (left) Hx Heart Attack/AMI: Yes Hx Congestive Heart Failure: No Hx Diabetes: No Hx Asthma: No Hx COPD: No Hx HIV: No Additional medical history: chronic pain in back, neck and L knee, ETOH abuse. herniated disc - Surgical History Additional Surgical History: Left Knee. skin graft to right hand, left hip surgery - Social History Smoking Status: Never Smoker Substance Use Type: None - Medications Home Medications: Home Medications Medication Instructions Recorded Confirmed Last Taken Type Aspirin 325 mg PO QDAY #30 tablet 10/23/19 Unknown Rx Metoprolol [Lopressor TAB] 25 mg PO BID #60 tablet 10/23/19 Unknown Rx Aspirin 325 mg PO QDAY #30 tablet 05/16/20 Unknown Rx Metoprolol [Lopressor TAB] 25 mg PO BID #60 tablet 05/16/20 Unknown Rx Pravastatin [Pravachol] 20 mg PO QHS #30 tablet 05/16/20 Unknown Rx Ondansetron [Zofran ODT TAB] 4 mg PO Q8HR #14 tab.rapdis 07/24/20 Unknown Rx Ondansetron [Zofran Odt] 4 mg PO Q8HR PRN #10 tab.rapdis 08/12/20 Unknown Rx Esomeprazole Magnesium [NexIUM] 40 mg PO QDAY #30 capsule. 08/14/20 Unknown Rx Folic Acid [Folvite] 1 mg PO QDAY #30 tablet 08/14/20 Unknown Rx Multivitamin with Folic Acid [[facility]vs 400 mcg PO QDAY #30 tablet 08/14/20 Unknown Rx One Daily Essential Tablet] Pantoprazole [Protonix TAB] 40 mg PO QDAY #30 tablet 08/14/20 Unknown Rx Thiamine [Vitamin B-1] 100 mg PO QDAY #30 tablet 08/14/20 Unknown Rx ED Physical Exam - General Limitations: No Limitations General appearance: alert, in no apparent distress - Head Head exam: Present: atraumatic, normocephalic - Eye Eye exam: Present: normal appearance, EOMI - ENT ENT exam: Present: mucous membranes moist - Neck Neck exam: Present: normal inspection - Respiratory Respiratory exam: Present: normal lung sounds bilaterally. Absent: respiratory distress - Cardiovascular Cardiovascular Exam: Present: regular rate, normal rhythm - Extremities Exam Extremities exam: Present: normal inspection - Neurological Exam Neurological exam: Present: alert, oriented X3 - Psychiatric Psychiatric exam: Present: normal affect, normal mood - Skin Skin exam: Present: warm, dry, intact, normal color ED Course Vital Signs 08/17/20 08/17/20 02:35 07:29 Temperature 98.1 F 97.8 F Pulse Rate 98 H 78 Respiratory 16 16 Rate Blood Pressure 106/67 Blood Pressure 121/69 [Left] O2 Sat by Pulse 100 98 Oximetry ED Medical Decision Making - Lab Data Result diagrams: 08/17/20 03:06 08/17/20 03:06 - Radiology Data Radiology results: report reviewed, image reviewed Critical care attestation.: If time is entered above; I have spent that time in minutes in the direct care of this critically ill patient, excluding procedure time. ED Disposition Clinical Impression: Dyspnea Disposition: DC-01 TO HOME OR SELFCARE Is pt being admited?: No Condition: Stable Instructions: Shortness of Breath, Adult, [id number] Referrals: [facility] [Provider Group] - 3-5 Days [facility] [place] [Outside] - 3-5 Days Time of Disposition: 06:49
[2020-08-17 07:30] VITALS: BP 121/69
== END 2020-08-17 07:34 | disposition home or self-care (01) ==
LOC: EDBD → ED 00:29
DX: R06.00 Dyspnea, unspecified (principal); I10 Essential (primary) hypertension; I25.2 Old myocardial infarction; Z79.899 Other long term (current) drug therapy; Z86.73 Personal history of transient ischemic attack (TIA), and cerebral infarction without residual deficits; Z98.890 Other specified postprocedural states
CPT/HCPCS: 36415; 71046; 80053; 85007; 85025

== ENCOUNTER 2020-08-20 01:39 | Emergency (ER) | payer MEDICAID | END 2020-08-20 02:15 | disposition left against medical advice (07) | LOC: EDBD → ED 01:39 | DX: R10.9 Unspecified abdominal pain (principal); Z53.21 Procedure and treatment not carried out due to patient leaving prior to being seen by health care provider ==

== ENCOUNTER 2020-08-20 10:59 | Emergency (ER) | payer MEDICAID ==
--- NOTE | 2020-08-20 11:51 | Emergency Department Report ---
ED Abdominal Pain HPI - General Chief Complaint: Back Pain/Injury Stated Complaint: STOMACH PAIN/BACK PAIN Time Seen by Provider: 08/20/20 11:44 Source: patient Mode of arrival: Ambulatory Limitations: No Limitations - History of Present Illness Initial Comments: This is a 59-year-old male known to me that is nontoxic, well nourished in appearance, no acute signs of distress presents to the ED with c/o of acute on chronic intermittent lower back pain and abdominal pain several days. Denies any nausea or vomiting. Patient denies any radiation of pain. Patient denies any trauma. Denies any bladder or bowel instability. Patient denies any urinary symptoms. Currently patient stated that symptoms has resolved but just wants a bus pass and food. Patient was seen several times for same complaints and refuses any treatment. Patient stated he was here since last night and feels much better and just needs a bus pass to go home. Patient denies any vomiting. Patient describes abdominal pain as cramping and aching with level of 3/10 diffuse but has resolved since ED stay. Patient denies chest pain, short of breath, fever, hemoptysis, blood in stool, chills, headache, stiff neck, numbness or tingling. Patient denies any diarrhea or constipation. Denies any blood in stool. Patient denies any recent travels. Patient denies any drug a llergies. MD Complaint: abdominal pain -: days(s) Location: diffuse Severity scale (0 -10): 0 Consistency: intermittent, now resolved Improves With: nothing Worsens With: nothing Associated Symptoms: denies other symptoms. denies: nausea, vomiting, diarrhea, fever, chills, constipation, dysuria, hematemesis, hematochezia, melena, hematuria, anorexia, syncope - Related Data Previous Rx's Medication Instructions Recorded Last Taken Type Aspirin 325 mg PO QDAY #30 tablet 10/23/19 Unknown Rx Metoprolol [Lopressor TAB] 25 mg PO BID #60 tablet 10/23/19 Unknown Rx Aspirin 325 mg PO QDAY #30 tablet 05/16/20 Unknown Rx Metoprolol [Lopressor TAB] 25 mg PO BID #60 tablet 05/16/20 Unknown Rx Pravastatin [Pravachol] 20 mg PO QHS #30 tablet 05/16/20 Unknown Rx Ondansetron [Zofran ODT TAB] 4 mg PO Q8HR #14 tab.edgardis 07/24/20 Unknown Rx Ondansetron [Zofran Odt] 4 mg PO Q8HR PRN #10 tab.rapdis 08/12/20 Unknown Rx Esomeprazole Magnesium [NexIUM] 40 mg PO QDAY #30 capsule. 08/14/20 Unknown Rx Folic Acid [Folvite] 1 mg PO QDAY #30 tablet 08/14/20 Unknown Rx Multivitamin with Folic Acid [Cvs 400 mcg PO QDAY #30 tablet 08/14/20 Unknown Rx One Daily Essential Tablet] Pantoprazole [Protonix TAB] 40 mg PO QDAY #30 tablet 08/14/20 Unknown Rx Thiamine [Vitamin B-1] 100 mg PO QDAY #30 tablet 08/14/20 Unknown Rx Allergies Allergy/AdvReac Type Severity Reaction Status Date / Time No Known Allergies Allergy Verified 08/20/20 11:45 ED Review of Systems ROS: Stated complaint: STOMACH PAIN/BACK PAIN Other details as noted in HPI Comment: All other systems reviewed and negative Constitutional: denies: chills, fever Eyes: denies: eye pain, eye discharge, vision change ENT: denies: ear pain, throat pain Respiratory: denies: cough, shortness of breath, wheezing Cardiovascular: denies: chest pain, palpitations Endocrine: no symptoms reported Gastrointestinal: abdominal pain. denies: nausea, vomiting, diarrhea Genitourinary: denies: urgency, dysuria Musculoskeletal: back pain. denies: joint swelling, arthralgia Skin: denies: rash, lesions Neurological: denies: headache, weakness, paresthesias Psychiatric: denies: anxiety, depression Hematological/Lymphatic: denies: easy bleeding, easy bruising ED Past Medical Hx - Past Medical History Hx Hypertension: Yes Hx CVA: Yes (left) Hx Heart Attack/AMI: Yes Hx Congestive Heart Failure: No Hx Diabetes: No Hx Asthma: No Hx COPD: No Hx HIV: No Additional medical history: chronic pain in back, neck and L knee, ETOH abuse. herniated disc - Surgical History Additional Surgical History: Left Knee. skin graft to right hand, left hip surgery - Social History Smoking Status: Never Smoker Substance Use Type: None - Medications Home Medications: Home Medications Medication Instructions Recorded Confirmed Last Taken Type Aspirin 325 mg PO QDAY #30 tablet 10/23/19 Unknown Rx Metoprolol [Lopressor TAB] 25 mg PO BID #60 tablet 10/23/19 Unknown Rx Aspirin 325 mg PO QDAY #30 tablet 05/16/20 Unknown Rx Metoprolol [Lopressor TAB] 25 mg PO BID #60 tablet 05/16/20 Unknown Rx Pravastatin [Pravachol] 20 mg PO QHS #30 tablet 05/16/20 Unknown Rx Ondansetron [Zofran ODT TAB] 4 mg PO Q8HR #14 tab.rapdis 07/24/20 Unknown Rx Ondansetron [Zofran Odt] 4 mg PO Q8HR PRN #10 tab.rapdis 08/12/20 Unknown Rx Esomeprazole Magnesium [NexIUM] 40 mg PO QDAY #30 capsule. 08/14/20 Unknown Rx Folic Acid [Folvite] 1 mg PO QDAY #30 tablet 08/14/20 Unknown Rx Multivitamin with Folic Acid [Cvs 400 mcg PO QDAY #30 tablet 08/14/20 Unknown Rx One Daily Essential Tablet] Pantoprazole [Protonix TAB] 40 mg PO QDAY #30 tablet 08/14/20 Unknown Rx Thiamine [Vitamin B-1] 100 mg PO QDAY #30 tablet 08/14/20 Unknown Rx ED Physical Exam - General Limitations: No Limitations General appearance: alert, in no apparent distress - Eye Eye exam: Present: normal appearance - Neck Neck exam: Present: full ROM - Respiratory Respiratory exam: Absent: respiratory distress - Cardiovascular Cardiovascular Exam: Present: regular rate - Extremities Exam Extremities exam: Present: full ROM - Back Exam Back exam: Present: full ROM - Neurological Exam Neurological exam: Present: alert, oriented X3, normal gait - Psychiatric Psychiatric exam: Present: normal affect, normal mood - Skin Skin exam: Present: warm, dry, intact, normal color. Absent: rash - Other Other exam information: PATIENT REFUSED A PHYSICAL EXAM AND STATED HE JUST WANTS A BUS PASS AND GO HOME. ED Course Vital Signs 08/20/20 11:54 Temperature 98 F Pulse Rate 80 Respiratory 20 Rate Blood Pressure 147/89 [Left] O2 Sat by Pulse 99 Oximetry - Reevaluation(s) Reevaluation #1: 08/20/20 11:51 Patient is speaking in full sentences with no signs of distress noted. ED Medical Decision Making - Medical Decision Making This is a 59-year-old male that presents with ABD and low back pains. Patient currently is stable and was examined by me. Labs/EKG has been ordered as well as imaging studies. Patient refused any blood drawn even after I educated of my concerns and instructed the necessary examination to be performed patient still refused. Patient also refused EKG as well. Patient refused imaging studies. Refused having a physical exam to be performed. Patient stated he feels much better and just wants bus pass. Due to no further testing,physical exam, or imaging studies I am unable to perform a full thorough physical exam for further evaluation and treatment. Patient was notified this and sign AGAINST MEDICAL ADVICE. Patient was instructed to follow-up with a primary care and surgical appliance fitter doctor as soon as possible or if symptoms worsen and continue return to emergency room as soon as possible. At time of signing AGAINST MEDICAL ADVICE, the patient does not seem toxic or ill in appearance. No acute signs of distress noted. No further questions noted by the patient. Critical care attestation.: If time is entered above; I have spent that time in minutes in the direct care of this critically ill patient, excluding procedure time. ED Disposition Clinical Impression: Abdominal pain Qualifiers: Abdominal location: unspecified location Qualified Code(s): R10.9 - Unspecified abdominal pain Chronic back pain Qualifiers: Back pain location: low back pain Back pain laterality: unspecified Sciatica presence: unspecified whether sciatica present Qualified Code(s): M54.5 - Low back pain Disposition: DC-07 LEFT AGAINST MED ADVICE Is pt being admited?: No Does the pt Need Aspirin: No Condition: Undetermined Additional Instructions: Follow-up with a primary care and surgical appliance fitter doctor as soon as possible or if symptoms worsen and continue return to emergency room as soon as possible. Referrals: MATHEW REAVES MD [Staff Physician] - HAMZAH EDY LAYNE MD [Primary Care Provider] - ASHWIN MONROY MD [Staff Physician] - HAMZAH Forms: AMA Form Time of Disposition: 11:53
[2020-08-20 12:06] VITALS: BP 147/89
== END 2020-08-20 11:56 | disposition left against medical advice (07) ==
LOC: EDBD → ED 10:59
DX: M54.5 Low back pain (principal); R10.9 Unspecified abdominal pain; G89.29 Other chronic pain; I10 Essential (primary) hypertension; I25.2 Old myocardial infarction; Z79.899 Other long term (current) drug therapy; Z86.73 Personal history of transient ischemic attack (TIA), and cerebral infarction without residual deficits; Z98.890 Other specified postprocedural states
CPT/HCPCS: 99282

== ENCOUNTER 2020-08-21 00:45 | Emergency (ER) | payer MEDICAID ==
[2020-08-21 08:12] VITALS: BP 137/78
== END 2020-08-21 19:00 | disposition left against medical advice (07) ==
LOC: EDBD → ED 00:45
DX: M54.6 Pain in thoracic spine (principal); R06.02 Shortness of breath; R11.0 Nausea; Z53.21 Procedure and treatment not carried out due to patient leaving prior to being seen by health care provider

== ENCOUNTER 2020-08-23 01:52 | Emergency (ER) | payer MEDICAID ==
[2020-08-23 02:30] VITALS: BP 114/73
--- NOTE | 2020-08-23 04:08 | XRay Report ---
CHEST 1 VIEW, 08/23/2020 2:08 AM CLINICAL INFORMATION/INDICATION: Chest pain COMPARISON: Chest radiograph, 08/17/2020 FINDINGS: SUPPORT DEVICES: None. HEART: The cardiac silhouette is normal in size. LUNGS/PLEURA: The lungs are clear of focal airspace disease or significant pleural effusion. ADDITIONAL FINDINGS: No additional acute findings. IMPRESSION: 1. No evidence of acute cardiopulmonary process. Signer Name: Ila Fernández MD Signed: 08/23/2020 4:03 AM Workstation Name: [id number]
--- NOTE | 2020-08-25 19:16 | Electrocardiograph Report ---
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
== END 2020-08-23 02:00 | disposition left against medical advice (07) ==
LOC: EDBD → ED 01:52
DX: R06.02 Shortness of breath (principal); Z53.21 Procedure and treatment not carried out due to patient leaving prior to being seen by health care provider
CPT/HCPCS: 36415; 71045; 84484; 93005

== ENCOUNTER 2020-08-23 06:57 | Emergency (ER) | payer MEDICAID ==
--- NOTE | 2020-08-23 07:24 | Event Note ---
ED Screening Note ED Screening Note: States he has no complaints Refused triage Wants anna pass This initial assessment/diagnostic orders/clinical plan/treatment(s) is/are subject to change based on patients health status, clinical progression and re- assessment by fellow clinical providers in the ED. Further treatment and workup at subsequent clinical providers discretion. Patient/guardian urged not to elope from the ED as their condition may be serious if not clinically assessed and managed. Initial orders include:
== END 2020-08-23 07:00 ==
LOC: EDBD → ED 06:57
DX: R06.02 Shortness of breath (principal); R11.2 Nausea with vomiting, unspecified; Z53.21 Procedure and treatment not carried out due to patient leaving prior to being seen by health care provider

== ENCOUNTER 2020-08-24 01:36 | Emergency (ER) | payer MEDICAID | END 2020-08-24 01:41 | disposition left against medical advice (07) | LOC: EDBD → ED 01:36 | DX: R06.02 Shortness of breath (principal); Z53.21 Procedure and treatment not carried out due to patient leaving prior to being seen by health care provider ==

== ENCOUNTER 2020-08-25 01:45 | Emergency (ER) | payer MEDICAID ==
[2020-08-25 08:33] VITALS: BP 130/74
--- NOTE | 2020-08-25 10:10 | XRay Report ---
CHEST 2 VIEWS INDICATION / CLINICAL INFORMATION: shortness of breath. COMPARISON: 08/23/2020. FINDINGS: SUPPORT DEVICES: None. HEART / MEDIASTINUM: Stable. LUNGS / PLEURA: No significant pulmonary or pleural abnormality. No pneumothorax. ADDITIONAL FINDINGS: No significant additional findings. IMPRESSION: 1. No acute cardiopulmonary abnormality. No significant interval change from 08/23/2020. Signer Name: Joe Milner MD Signed: 08/25/2020 10:06 AM Workstation Name: [id number]
--- NOTE | 2020-09-13 17:51 | Electrocardiograph Report ---
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
== END 2020-08-25 09:00 | disposition left against medical advice (07) ==
LOC: EDBD → ED 01:45
DX: M54.5 Low back pain (principal); R06.02 Shortness of breath; Z53.21 Procedure and treatment not carried out due to patient leaving prior to being seen by health care provider
CPT/HCPCS: 71046; 93005

== ENCOUNTER 2020-08-26 00:18 | Emergency (ER) | payer MEDICAID | END 2020-08-26 07:50 | disposition left against medical advice (07) | LOC: EDBD → ED 00:18 | DX: M54.6 Pain in thoracic spine (principal); R06.02 Shortness of breath; Z53.21 Procedure and treatment not carried out due to patient leaving prior to being seen by health care provider ==

== ENCOUNTER 2020-08-30 00:41 | Emergency (ER) | payer MEDICAID | END 2020-08-30 08:32 | disposition left against medical advice (07) | LOC: EDBD → ED 00:41 | DX: R06.02 Shortness of breath (principal); Z53.21 Procedure and treatment not carried out due to patient leaving prior to being seen by health care provider ==

== ENCOUNTER 2020-08-31 02:14 | Emergency (ER) | payer MEDICAID ==
[2020-08-31 04:17] VITALS: BP 138/94
--- NOTE | 2020-08-31 05:23 | XRay Report ---
CHEST 1 VIEW 08/31/2020 4:16 AM INDICATION / CLINICAL INFORMATION: SOB and Chest Pain. COMPARISON: None available. FINDINGS: SUPPORT DEVICES: None. HEART / MEDIASTINUM: No significant abnormality. LUNGS / PLEURA: No significant pulmonary or pleural abnormality. No pneumothorax. ADDITIONAL FINDINGS: No significant additional findings. IMPRESSION: 1. No acute findings. Signer Name: Frank Marcelo MD Signed: 08/31/2020 5:18 AM Workstation Name: [id number]
--- NOTE | 2020-08-31 09:22 | Emergency Department Report ---
ED Alcohol HPI - General Chief Complaint: Chest Pain Stated Complaint: CHEST PAIN/SOB/BACK PAIN Time Seen by Provider: 08/31/20 08:51 Source: patient Mode of arrival: Ambulatory Limitations: No Limitations - History of Present Illness Initial Comments: Patient is 61 years old male, known to this facility due to multiple ER visits for similar complaint. Patient is chronic alcoholism. Patient presented to the ER initially stating that he has chest pain and when I examined him the patient stated that he did not have any chest pain he had back pain. Patient denied any shortness of breath, fever or chills. Patient also denied any abdominal pain, nausea or vomiting or diarrhea. Patient admitted that he has been drinking last night. Patient stated that he lives with his brother who went to work and he has no way to go to the house. Patient is in no acute distress and sleepy. 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 Previous Visits for Alcohol Intoxication?: Yes Recent Trauma: No Treatments Prior to Arrival: none - Related Data Previous Rx's Medication Instructions Recorded Last Taken Type Aspirin 325 mg PO QDAY #30 tablet 10/23/19 Unknown Rx Metoprolol [Lopressor TAB] 25 mg PO BID #60 tablet 10/23/19 Unknown Rx Aspirin 325 mg PO QDAY #30 tablet 05/16/20 Unknown Rx Metoprolol [Lopressor TAB] 25 mg PO BID #60 tablet 05/16/20 Unknown Rx Pravastatin [Pravachol] 20 mg PO QHS #30 tablet 05/16/20 Unknown Rx Ondansetron [Zofran ODT TAB] 4 mg PO Q8HR #14 tab.rapdis 07/24/20 Unknown Rx Ondansetron [Zofran Odt] 4 mg PO Q8HR PRN #10 tab.rapdis 08/12/20 Unknown Rx Esomeprazole Magnesium [NexIUM] 40 mg PO QDAY #30 capsule. 08/14/20 Unknown Rx Folic Acid [Folvite] 1 mg PO QDAY #30 tablet 08/14/20 Unknown Rx Multivitamin with Folic Acid [Cvs 400 mcg PO QDAY #30 tablet 08/14/20 Unknown Rx One Daily Essential Tablet] Pantoprazole [Protonix TAB] 40 mg PO QDAY #30 tablet 08/14/20 Unknown Rx Thiamine [Vitamin B-1] 100 mg PO QDAY #30 tablet 08/14/20 Unknown Rx Allergies Allergy/AdvReac Type Severity Reaction Status Date / Time No Known Allergies Allergy Verified 08/20/20 11:45 ED Review of Systems ROS: Stated complaint: CHEST PAIN/SOB/BACK PAIN Other details as noted in HPI Comment: All other systems reviewed and negative Constitutional: denies: chills, fever Respiratory: denies: cough, shortness of breath, SOB with exertion Cardiovascular: chest pain Gastrointestinal: denies: abdominal pain, nausea, vomiting Musculoskeletal: denies: back pain Neurological: denies: headache, weakness, numbness, paresthesias, confusion Psychiatric: denies: anxiety, depression, auditory hallucinations, visual hallucinations, homicidal thoughts, suicidal thoughts ED Past Medical Hx - Past Medical History Previous Medical History?: Yes Hx Hypertension: Yes Hx CVA: Yes (left) Hx Heart Attack/AMI: Yes Hx Congestive Heart Failure: No Hx Diabetes: No Hx Asthma: No Hx COPD: No Hx HIV: No Additional medical history: chronic pain in back, neck and L knee, ETOH abuse. herniated disc - Surgical History Past Surgical History?: Yes Additional Surgical History: Left Knee. skin graft to right hand, left hip surgery - Social History Smoking Status: Never Smoker Substance Use Type: Alcohol - Medications Home Medications: Home Medications Medication Instructions Recorded Confirmed Last Taken Type Aspirin 325 mg PO QDAY #30 tablet 10/23/19 Unknown Rx Metoprolol [Lopressor TAB] 25 mg PO BID #60 tablet 10/23/19 Unknown Rx Aspirin 325 mg PO QDAY #30 tablet 05/16/20 Unknown Rx Metoprolol [Lopressor TAB] 25 mg PO BID #60 tablet 05/16/20 Unknown Rx Pravastatin [Pravachol] 20 mg PO QHS #30 tablet 05/16/20 Unknown Rx Ondansetron [Zofran ODT TAB] 4 mg PO Q8HR #14 tab.rapdis 07/24/20 Unknown Rx Ondansetron [Zofran Odt] 4 mg PO Q8HR PRN #10 tab.rapdis 08/12/20 Unknown Rx Esomeprazole Magnesium [NexIUM] 40 mg PO QDAY #30 capsule. 08/14/20 Unknown Rx Folic Acid [Folvite] 1 mg PO QDAY #30 tablet 08/14/20 Unknown Rx Multivitamin with Folic Acid [Cvs 400 mcg PO QDAY #30 tablet 08/14/20 Unknown Rx One Daily Essential Tablet] Pantoprazole [Protonix TAB] 40 mg PO QDAY #30 tablet 08/14/20 Unknown Rx Thiamine [Vitamin B-1] 100 mg PO QDAY #30 tablet 08/14/20 Unknown Rx ED Physical Exam - General Limitations: No Limitations General appearance: alert, in no apparent distress, appears intoxicated - Head Head exam: Present: atraumatic, normocephalic, normal inspection - Eye Eye exam: Present: normal appearance, PERRL - ENT ENT exam: Present: normal exam, normal orophraynx, mucous membranes moist - Neck Neck exam: Present: normal inspection, full ROM. Absent: tenderness, meningismus - Respiratory Respiratory exam: Present: normal lung sounds bilaterally - Cardiovascular Cardiovascular Exam: Present: regular rate, normal rhythm, normal heart sounds - GI/Abdominal GI/Abdominal exam: Present: soft, normal bowel sounds. Absent: distended, tenderness, guarding, rebound, rigid, organomegaly, mass, bruit, pulsatile mass, hernia - Extremities Exam Extremities exam: Present: normal inspection, full ROM, normal capillary refill. Absent: tenderness, pedal edema, calf tenderness - Back Exam Back exam: Present: normal inspection, full ROM. Absent: CVA tenderness (R), CVA tenderness (L) - Neurological Exam Neurological exam: Present: alert, oriented X3, CN II-XII intact - Psychiatric Psychiatric exam: Present: normal mood. Absent: depressed, agitated, anxious, flat affect, manic, homicidal ideation, suicidal ideation - Skin Skin exam: Present: warm, intact, normal color ED Course Vital Signs 08/31/20 04:16 Temperature 97.8 F Pulse Rate 101 H Respiratory 20 Rate Blood Pressure 138/94 [Right] O2 Sat by Pulse 98 Oximetry ED Medical Decision Making - EKG Data -: EKG Interpreted by Wv - EKG Data 08/31/20 11:26 atrial fibrillation - Medical Decision Making Patient is 61 years old male, known to this facility due to multiple ER visits for similar complaint. Patient is chronic alcoholism. Patient presented to the ER initially stating that he has chest pain and when I examined him the patient stated that he did not have any chest pain he had back pain. Patient denied any shortness of breath, fever or chills. Patient also denied any abdominal pain, nausea or vomiting or diarrhea. Patient admitted that he has been drinking last night. Patient stated that he lives with his brother who went to work and he has no way to go to the house. Patient is in no acute distress and sleepy. EKG showed atrial fibrillation with controlled rate. Troponin is negative. Alcohol level is 0.28. I did not appreciate any acute emergency at this moment. Patient presenting with similar complaint and had several work-up that is unremarkable. Patient obviously has a social issue. Mental health and case management has been consulted and the patient. Critical care attestation.: If time is entered above; I have spent that time in minutes in the direct care of this critically ill patient, excluding procedure time. ED Disposition Clinical Impression: ETOH abuse, Chronic chest pain Disposition: DC-01 TO HOME OR SELFCARE Is pt being admited?: No Condition: Stable Instructions: Nonspecific Chest Pain, Adult Additional Instructions: OUTPATIENT MENTAL HEALTH RESOURCES [facility], [facility] Bee Gonzales MD: [address], [address] [facility] [address] [place] [address] [place] [address] [facility]: [employer] [facility] [address] [place] [address] [place] [address] [phone] [facility]: [facility]: [address] [place] [address] [address] [place] [address] [place] [address] [facility] [address] [facility]: Jovanny Miranda MD: [address] [facility] [address] [facility] [id number] [facility]: [address] [facility] [place] [address] [phone] OR CRISIS AND ACCESS LINE: SUBSTANCE ABUSE PROGRAMS: [facility]: Location: [place], [place] [facility] Address: [address] [place] [address] [address] [facility] Recovery: Address: [address] [place] [address] [facility] Rehabilitation: Address: [address] [place] [address] [facility]: Address: [address] [place] [address] [facility] Address: [address] [place] [address]. Please contact above numbers to attempt placement into free based program. Medicaid Programs: [facility]: Address: [address] [place] [address] [facility]: Address: [address] [place] [address] HOMELESS RESOURCES: [facility] NEED HELP? If you are in need of help or know someone who does, please contact us at [email or web address] , or come to our offices at [address] [place] [address], Friday-Friday beginning at 8AM. [facility] Males only Admission at 7am Fri to Fri Address: [address] [place] [address] Client Engagement [phone] Regular program admission occurs Friday through Friday at 7:00 amand operates on a first come, first serve basis.Because we cant anticipate program availability in advance andprogram spots are in high demand, we recommend arriving early. Space fills up fast! Next steps can include: Assignment to a [facility] program bed Connection to and placement in a partner program, or Referral to a partner agency [facility] [employer] [facility] Program [employer]goal is to take chronically homeless men and help them overcome their barriers, change them as human beings,making them productive and self- sufficient individuals. Each [facility] participant is housed at our facility for up to a year while they participate in transitional work (earning $7.40/hr for 30+ hours per we ek). All participants renounce dependency and remain drug and alcohol free. Personal support, case management, and workforce training is offered throughout the program. We also provide AA/NA Classes, GED classes, support in obtaining a hazardous materials tanker driver's licenses,help setting up a bank account,and life skill preparation courses. 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 [facility] [address] [place] [id number] [email or web address] Referrals: PRIMARY CAREMD [Primary Care Provider] - 3-5 Days
--- NOTE | 2020-08-31 14:25 | Electrocardiograph Report ---
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
== END 2020-08-31 15:20 | disposition home or self-care (01) ==
LOC: EDBD → ED 02:14
DX: F10.10 Alcohol abuse, uncomplicated (principal); R07.9 Chest pain, unspecified; G89.29 Other chronic pain; I10 Essential (primary) hypertension; I25.2 Old myocardial infarction; Z79.899 Other long term (current) drug therapy; Z86.73 Personal history of transient ischemic attack (TIA), and cerebral infarction without residual deficits; Z98.890 Other specified postprocedural states
CPT/HCPCS: 36415; 71045; 80320; 84484; 93005; G0480

== ENCOUNTER 2020-09-06 00:58 | Emergency (ER) | payer MEDICAID ==
[2020-09-06 02:04] VITALS: BP 146/72
== END 2020-09-06 08:15 ==
LOC: ED 00:58
DX: R06.02 Shortness of breath (principal); M54.6 Pain in thoracic spine; Z53.21 Procedure and treatment not carried out due to patient leaving prior to being seen by health care provider

== ENCOUNTER 2020-09-07 00:33 | Emergency (ER) | payer MEDICAID ==
--- NOTE | 2020-09-07 08:18 | Emergency Department Report ---
ED Back Pain/Injury HPI - General Chief Complaint: Extremity Injury, Lower Stated Complaint: BILATERAL FOOT PAIN/SOB/BACK PAIN Time Seen by Provider: 09/07/20 08:04 Source: patient Limitations: No Limitations - History of Present Illness Initial Comments: Chief complaint: "It is not the chest pain this time. Thank God. I need something for herniated disc." HPI: This is a 59-year-old male with history of alcohol dependence, chronic chest pain, chronic back pain pancreatitis who presents with lower back pain and shortness of breath. Patient states that "I need something for this herniated disc.". Also "you can see that I am short of breath". Complaint: back pain -: Gradual, year(s) (Several years) Similar Symptoms Previously: Yes Place: other (No injury) Severity: mild Quality: dull Consistency: constant Improves With: none Worsens With: movement Associated Symptoms: other (Shortness of breath) - Related Data Previous Rx's Medication Instructions Recorded Last Taken Type Aspirin 325 mg PO QDAY #30 tablet 10/23/19 Unknown Rx Metoprolol [Lopressor TAB] 25 mg PO BID #60 tablet 10/23/19 Unknown Rx Aspirin 325 mg PO QDAY #30 tablet 05/16/20 Unknown Rx Metoprolol [Lopressor TAB] 25 mg PO BID #60 tablet 05/16/20 Unknown Rx Pravastatin [Pravachol] 20 mg PO QHS #30 tablet 05/16/20 Unknown Rx Ondansetron [Zofran ODT TAB] 4 mg PO Q8HR #14 tab.rapdis 07/24/20 Unknown Rx Ondansetron [Zofran Odt] 4 mg PO Q8HR PRN #10 tab.rapdis 08/12/20 Unknown Rx Esomeprazole Magnesium [NexIUM] 40 mg PO QDAY #30 capsule. 08/14/20 Unknown Rx Folic Acid [Folvite] 1 mg PO QDAY #30 tablet 08/14/20 Unknown Rx Multivitamin with Folic Acid [[facility] 400 mcg PO QDAY #30 tablet 08/14/20 Unknown Rx One Daily Essential Tablet] Pantoprazole [Protonix TAB] 40 mg PO QDAY #30 tablet 08/14/20 Unknown Rx Thiamine [Vitamin B-1] 100 mg PO QDAY #30 tablet 08/14/20 Unknown Rx Allergies Allergy/AdvReac Type Severity Reaction Status Date / Time No Known Allergies Allergy Verified 08/20/20 11:45 ED Review of Systems ROS: Stated complaint: BILATERAL FOOT PAIN/SOB/BACK PAIN Other details as noted in HPI Comment: All other systems reviewed and negative Constitutional: denies: fever, malaise Respiratory: shortness of breath. denies: cough Cardiovascular: denies: chest pain Gastrointestinal: denies: abdominal pain, nausea, vomiting Musculoskeletal: back pain ED Past Medical Hx - Past Medical History Previous Medical History?: Yes Hx Hypertension: Yes Hx CVA: Yes (left) Hx Heart Attack/AMI: Yes Hx Congestive Heart Failure: No Hx Diabetes: No Hx Asthma: No Hx COPD: No Hx HIV: No Additional medical history: chronic pain in back, neck and L knee, ETOH abuse. herniated disc - Surgical History Past Surgical History?: Yes Additional Surgical History: Left Knee. skin graft to right hand, left hip surgery - Social History Smoking Status: Never Smoker - Medications Home Medications: Home Medications Medication Instructions Recorded Confirmed Last Taken Type Aspirin 325 mg PO QDAY #30 tablet 10/23/19 Unknown Rx Metoprolol [Lopressor TAB] 25 mg PO BID #60 tablet 10/23/19 Unknown Rx Aspirin 325 mg PO QDAY #30 tablet 05/16/20 Unknown Rx Metoprolol [Lopressor TAB] 25 mg PO BID #60 tablet 05/16/20 Unknown Rx Pravastatin [Pravachol] 20 mg PO QHS #30 tablet 05/16/20 Unknown Rx Ondansetron [Zofran ODT TAB] 4 mg PO Q8HR #14 tab.rapdis 07/24/20 Unknown Rx Ondansetron [Zofran Odt] 4 mg PO Q8HR PRN #10 tab.rapdis 08/12/20 Unknown Rx Esomeprazole Magnesium [NexIUM] 40 mg PO QDAY #30 capsule. 08/14/20 Unknown Rx Folic Acid [Folvite] 1 mg PO QDAY #30 tablet 08/14/20 Unknown Rx Multivitamin with Folic Acid [[facility] 400 mcg PO QDAY #30 tablet 08/14/20 Unknown Rx One Daily Essential Tablet] Pantoprazole [Protonix TAB] 40 mg PO QDAY #30 tablet 08/14/20 Unknown Rx Thiamine [Vitamin B-1] 100 mg PO QDAY #30 tablet 08/14/20 Unknown Rx ED Physical Exam - General Limitations: No Limitations General appearance: alert, in no apparent distress, other (Sleeping,Left lateral decubitus position) - Head Head exam: Present: atraumatic, normocephalic - Eye Eye exam: Present: normal appearance - ENT ENT exam: Present: mucous membranes moist - Neck Neck exam: Present: normal inspection, full ROM - Respiratory Respiratory exam: Present: normal lung sounds bilaterally. Absent: respiratory distress, wheezes, rales, rhonchi, chest wall tenderness, accessory muscle use, decreased breath sounds, prolonged expiratory - Cardiovascular Cardiovascular Exam: Present: regular rate, normal rhythm, normal heart sounds. Absent: systolic murmur, diastolic murmur, rubs, gallop - GI/Abdominal GI/Abdominal exam: Present: soft, normal bowel sounds. Absent: distended, tenderness, guarding, rebound - Rectal Rectal exam: Present: deferred - Extremities Exam Extremities exam: Present: normal inspection - Neurological Exam Neurological exam: Present: alert, oriented X3 - Psychiatric Psychiatric exam: Present: normal affect, normal mood - Skin Skin exam: Present: warm, dry, intact, normal color. Absent: rash ED Course Vital Signs 09/07/20 09/07/20 00:41 07:56 Temperature 98.4 F 97.6 F Pulse Rate 109 H 76 Respiratory 16 15 Rate Blood Pressure 117/71 Blood Pressure 127/73 [Right] O2 Sat by Pulse 95 95 Oximetry ED Medical Decision Making - Medical Decision Making 1. Chronic back pain: Neurologic intact without red flags such as urinary fecal incontinence or trauma. Patient received Tylenol emergency department. 2. Shortness of breath: Patient does not exhibit any objective findings of dyspnea. Normal vital signs. Normal respiratory rate. Normal oxygenation. He is sleeping comfortably in the left lateral decubitus position. 3. Alcohol dependence: Patient comes to our emergency department frequently after imbibing alcohol. He typically comes at night. He utilizes this emergency department as a place for rest and detention. Mr. Lemus had been observed sleeping in the waiting room for 6.5 hours prior to coming to treatment room. He is appropriate for discharge to self-care.3 Vital Signs - 24 hr 09/07/20 09/07/20 00:41 07:56 Temperature 98.4 F 97.6 F Pulse Rate 109 H 76 Respiratory 16 15 Rate Blood Pressure 117/71 Blood Pressure 127/73 [Right] O2 Sat by Pulse 95 95 Oximetry Critical care attestation.: If time is entered above; I have spent that time in minutes in the direct care of this critically ill patient, excluding procedure time. ED Disposition Clinical Impression: Acute exacerbation of chronic low back pain, Alcoholism Disposition: TO HOME OR SELFCARE Is pt being admited?: No Does the pt Need Aspirin: No Condition: Stable Referrals: MATHEW REAVES MD [Staff Physician] - 3-5 Days
[2020-09-07] MEDS ORDERED: ACETAMINOPHEN 500 MG TAB PO ONE (08:19)
[2020-09-07 08:56] VITALS: BP 121/86
== END 2020-09-07 08:57 | disposition home or self-care (01) ==
LOC: ED 00:33
DX: M54.5 Low back pain (principal); F10.20 Alcohol dependence, uncomplicated; I10 Essential (primary) hypertension; I25.2 Old myocardial infarction; Z86.73 Personal history of transient ischemic attack (TIA), and cerebral infarction without residual deficits; Z98.890 Other specified postprocedural states; Z79.899 Other long term (current) drug therapy
CPT/HCPCS: 99282

== ENCOUNTER 2020-09-09 22:01 | Emergency (ER) | payer MEDICAID ==
[2020-09-09 23:26] LABS: Basophils # (Auto) 0.1 K/mm3 (0.0-0.1); Basophils % (Auto) 1.6 % (0.0-1.8); Eosinophils # (Auto) 0.1 K/mm3 (0.0-0.4); Eosinophils % (Auto) 1.5 % (0.0-4.3); Hematocrit 39.4 % (35.5-45.6); Hemoglobin 13.5 gm/dl (11.8-15.2); Lymphocytes # (Auto) 1.5 K/mm3 (1.2-5.4); Mean Corpuscular HGB Conc 34 % (32-34); Mean Corpuscular Volume 89 fl (84-94); Monocytes # (Auto) 0.6 K/mm3 (0.0-0.8); Monocytes % (Auto) 14.8 % (0.0-7.3); Platelet Count 122 K/mm3 (140-440); Red Blood Count 4.44 M/mm3 (3.65-5.03); Red Cell Distribution Width 17.1 % (13.2-15.2)
[2020-09-09 23:49] LABS: Alanine Aminotransferase 68 units/L (7-56); Blood Urea Nitrogen 4 mg/dL (9-20); Calcium 8.4 mg/dL (8.4-10.2); Hemolysis Index 18
[2020-09-10 00:17] LABS: BUN/Creatinine Ratio 8
[2020-09-10] MEDS ORDERED: ONDANSETRON 4 MG/2 ML INJ IV ONE (03:27)
[2020-09-10] MEDS ORDERED: KETOROLAC 30 MG/1 ML INJ IV ONE (03:27)
[2020-09-10] MEDS ORDERED: SODIUM CHLORIDE 0.9% 1000 ML 1,000 ML IV ONE (03:27)
[2020-09-10] MEDS ORDERED: FAMOTIDINE 20 MG/2 ML INJ IV ONE (03:27)
[2020-09-10] MEDS ORDERED: LIDOCAINE 5% 1 EACH PATCH TD SCH (03:35)
--- NOTE | 2020-09-10 05:04 | Cat Scan Report ---
CT abdomen pelvis w con INDICATION: abdominal and back pain; mid abdomen; n/v. COMPARISON: 08/12/2020 TECHNIQUE: Abdominal and pelvic CT exam performed. All CT scans at this location are performed using CT dose reduction for ALARA by means of automated exposure control. FINDINGS: CT ABDOMEN and PELVIS: Lung Bases: No significant abnormality. Liver: Severe hypoattenuation of the liver. Biliary: No significant abnormality. Spleen: No significant abnormality. Pancreas: Peripancreatic stranding. No dilation of the duct. The parenchyma of the pancreas maintains homogeneous enhancement. No organized collection. Adrenals: No significant abnormality. Kidneys: No significant abnormality. Lymphatics: No lymphadenopathy. Vasculature: Portal vein, superior mesenteric vein and splenic vein appear patent. Aorta is normal ca liber.. Bowel: No significant abnormality. Normal appendix. Pelvis: No significant abnormality. Osseous Structures: No aggressive osseous lesion. Additional Findings: None IMPRESSION: 1. Acute interstitial edematous pancreatitis without organized collection. 2. Severe diffuse hepatic steatosis. Signer Name: Xander De Leon MD Signed: 09/10/2020 5:00 AM Workstation Name: [id number]
--- NOTE | 2020-09-10 05:33 | Emergency Department Report ---
ED Abdominal Pain HPI - General Chief Complaint: Abdominal Pain Stated Complaint: STOMACH PAIN/BACK PAIN Time Seen by Provider: 09/10/20 02:30 Source: patient Mode of arrival: Ambulatory Limitations: No Limitations - History of Present Illness Initial Comments: Patient is a 59-year-old male with history of alcohol abuse presents emergency department complaint of abdominal pain. Patient reports that his pain started on yesterday and worsen. He is also had nausea and vomiting. He also reports back pain that he relates to his chronic herniated disc. He has been ambulatory with the help of his walker/wheelchair. MD Complaint: abdominal pain -: Gradual Location: diffuse, epigastric Radiation: none Migration to: no migration Severity: moderate Severity scale (0 -10): 10 Quality: other Consistency: intermittent Improves With: nothing Worsens With: nothing Associated Symptoms: nausea, vomiting - Related Data Previous Rx's Medication Instructions Recorded Last Taken Type Aspirin 325 mg PO QDAY #30 tablet 10/23/19 Unknown Rx Metoprolol [Lopressor TAB] 25 mg PO BID #60 tablet 10/23/19 Unknown Rx Aspirin 325 mg PO QDAY #30 tablet 05/16/20 Unknown Rx Metoprolol [Lopressor TAB] 25 mg PO BID #60 tablet 05/16/20 Unknown Rx Pravastatin [Pravachol] 20 mg PO QHS #30 tablet 05/16/20 Unknown Rx Ondansetron [Zofran Odt] 4 mg PO Q8HR PRN #10 tab.rapdis 08/12/20 Unknown Rx Esomeprazole Magnesium [NexIUM] 40 mg PO QDAY #30 capsule. 08/14/20 Unknown Rx Folic Acid [Folvite] 1 mg PO QDAY #30 tablet 08/14/20 Unknown Rx Multivitamin with Folic Acid [[facility] 400 mcg PO QDAY #30 tablet 08/14/20 Unknown Rx One Daily Essential Tablet] Thiamine [Vitamin B-1] 100 mg PO QDAY #30 tablet 08/14/20 Unknown Rx Ondansetron [Zofran ODT TAB] 4 mg PO Q8HR #14 tab.rapdis 09/10/20 Unknown Rx Pantoprazole [Protonix TAB] 40 mg PO QDAY #30 tablet 09/10/20 Unknown Rx Allergies Allergy/AdvReac Type Severity Reaction Status Date / Time No Known Allergies Allergy Verified 08/20/20 11:45 ED Review of Systems ROS: Stated complaint: STOMACH PAIN/BACK PAIN Other details as noted in HPI Constitutional: denies: chills, fever Eyes: denies: eye discharge ENT: denies: dental pain Respiratory: denies: shortness of breath Cardiovascular: denies: chest pain, edema Endocrine: denies: intolerance to cold, intolerance to heat Gastrointestinal: abdominal pain, nausea, vomiting. denies: diarrhea, constipation Genitourinary: denies: urgency, frequency Musculoskeletal: denies: joint swelling Skin: denies: rash Neurological: denies: weakness, numbness Psychiatric: denies: anxiety, depression Hematological/Lymphatic: denies: easy bleeding ED Past Medical Hx - Past Medical History Previous Medical History?: Yes Hx Hypertension: Yes Hx CVA: Yes (left) Hx Heart Attack/AMI: Yes Hx Congestive Heart Failure: No Hx Diabetes: No Hx Asthma: No Hx COPD: No Hx HIV: No Additional medical history: chronic pain in back, neck and L knee, ETOH abuse. herniated disc - Surgical History Past Surgical History?: Yes Additional Surgical History: Left Knee. skin graft to right hand, left hip surgery - Social History Smoking Status: Never Smoker - Medications Home Medications: Home Medications Medication Instructions Recorded Confirmed Last Taken Type Aspirin 325 mg PO QDAY #30 tablet 10/23/19 Unknown Rx Metoprolol [Lopressor TAB] 25 mg PO BID #60 tablet 10/23/19 Unknown Rx Aspirin 325 mg PO QDAY #30 tablet 05/16/20 Unknown Rx Metoprolol [Lopressor TAB] 25 mg PO BID #60 tablet 05/16/20 Unknown Rx Pravastatin [Pravachol] 20 mg PO QHS #30 tablet 05/16/20 Unknown Rx Ondansetron [Zofran Odt] 4 mg PO Q8HR PRN #10 tab.rapdis 08/12/20 Unknown Rx Esomeprazole Magnesium [NexIUM] 40 mg PO QDAY #30 lg. 08/14/20 Unknown Rx Folic Acid [Folvite] 1 mg PO QDAY #30 tablet 08/14/20 Unknown Rx Multivitamin with Folic Acid [[facility] 400 mcg PO QDAY #30 tablet 08/14/20 Unknown Rx One Daily Essential Tablet] Thiamine [Vitamin B-1] 100 mg PO QDAY #30 tablet 08/14/20 Unknown Rx Ondansetron [Zofran ODT TAB] 4 mg PO Q8HR #14 tab.rapdis 09/10/20 Unknown Rx Pantoprazole [Protonix TAB] 40 mg PO QDAY #30 tablet 09/10/20 Unknown Rx ED Physical Exam - General Limitations: No Limitations General appearance: alert, in no apparent distress - Head Head exam: Present: atraumatic, normocephalic - Eye Eye exam: Present: normal appearance Pupils: Present: normal accommodation - ENT ENT exam: Present: normal exam - Neck Neck exam: Present: normal inspection - Respiratory Respiratory exam: Present: normal lung sounds bilaterally, respiratory distress. Absent: wheezes - Cardiovascular Cardiovascular Exam: Present: regular rate, normal rhythm, normal heart sounds - GI/Abdominal GI/Abdominal exam: Present: soft. Absent: distended, tenderness - Rectal Rectal exam: Present: deferred - Extremities Exam Extremities exam: Present: normal inspection - Back Exam Back exam: Present: tenderness, vertebral tenderness - Neurological Exam Neurological exam: Present: alert, oriented X3 - Psychiatric Psychiatric exam: Present: normal affect, normal mood - Skin Skin exam: Present: warm, dry, intact ED Course Vital Signs 09/09/20 09/09/20 09/10/20 22:10 22:11 06:30 Temperature 98.6 F Pulse Rate 90 83 Respiratory 14 15 Rate Blood Pressure 134/83 Blood Pressure 107/77 [Left] O2 Sat by Pulse 98 Oximetry - Reevaluation(s) Reevaluation #1: 09/10/20 05:[address]. Discuss[address] results of CT scan. Patient feels comfortable with plan for discharge if he can tolerate p.o. Giving patient food now. Pancreatitis is likely chronic in nature and patient is tolerating p.o. can be discharged home ED Medical Decision Making - Lab Data Result diagrams: 09/09/20 23:09 09/09/20 23:09 - Medical Decision Making 59-year-old male with history of chronic alcoholism presents emergency department complaint of abdominal pain as well as back pain. Plan to evaluate patient with CT abdomen pelvis and basic labs. Will give IV fluids and pain control as well as some Zofran in the meantime. Critical care attestation.: If time is entered above; I have spent that time in minutes in the direct care of this critically ill patient, excluding procedure time. ED Disposition Clinical Impression: Pancreatitis Disposition: DC-01 TO HOME OR SELFCARE Is pt being admited?: No Does the pt Need Aspirin: No Condition: Stable Instructions: Pancreatitis Eating Plan, Acute Pancreatitis Prescriptions: Pantoprazole [Protonix TAB] 40 mg PO QDAY #30 tablet Ondansetron [Zofran ODT TAB] 4 mg PO Q8HR #14 tab.rapdis Referrals: MATHEW REAVES MD [Staff Physician] - 3-5 Days Time of Disposition: 05:51 Print Language: MALAY
[2020-09-10 06:32] VITALS: BP 107/77
== END 2020-09-10 06:58 | disposition home or self-care (01) ==
LOC: ED 22:01
DX: K85.90 Acute pancreatitis without necrosis or infection, unspecified (principal); R11.2 Nausea with vomiting, unspecified; I10 Essential (primary) hypertension; Z86.73 Personal history of transient ischemic attack (TIA), and cerebral infarction without residual deficits
CPT/HCPCS: 36415; 74177; 80053; 83690; 85025; 96361; 96374; 96375; 99284; J1885; J2405; J7030; Q9967

== ENCOUNTER 2020-09-12 23:21 | Emergency (ER) | payer MEDICAID ==
[2020-09-13 02:03] LABS: Basophils # (Auto) 0.1 K/mm3 (0.0-0.1); Basophils % (Auto) 1.4 % (0.0-1.8); Eosinophils # (Auto) 0.1 K/mm3 (0.0-0.4); Eosinophils % (Auto) 2.7 % (0.0-4.3); Hematocrit 35.7 % (35.5-45.6); Hemoglobin 12.1 gm/dl (11.8-15.2); Lymphocytes # (Auto) 1.7 K/mm3 (1.2-5.4); Lymphocytes % (Auto) 41.6 % (13.4-35.0); Mean Corpuscular HGB Conc 34 % (32-34); Mean Corpuscular Volume 88 fl (84-94); Monocytes # (Auto) 0.6 K/mm3 (0.0-0.8); Monocytes % (Auto) 13.7 % (0.0-7.3); Platelet Count 129 K/mm3 (140-440); Red Blood Count 4.07 M/mm3 (3.65-5.03); Red Cell Distribution Width 16.9 % (13.2-15.2)
[2020-09-13 02:19] LABS: Alanine Aminotransferase 56 units/L (7-56); Albumin 3.6 g/dL (3.9-5); Blood Urea Nitrogen 4 mg/dL (9-20); Calcium 8.2 mg/dL (8.4-10.2); Hemolysis Index 1
[2020-09-13 02:20] LABS: BUN/Creatinine Ratio 7
--- NOTE | 2020-09-13 02:51 | XRay Report ---
XR chest routine 2V INDICATION / CLINICAL INFORMATION: CP/SOB COMPARISON: 08/31/2020 FINDINGS: SUPPORT DEVICES: None. HEART / MEDIASTINUM: No significant abnormality. LUNGS / PLEURA: Lungs are clear. Costophrenic sulci are sharp. No pneumothorax. ADDITIONAL FINDINGS: No significant additional findings. IMPRESSION: 1. No acute findings. Signer Name: Xander De Leon MD Signed: 09/13/2020 2:46 AM Workstation Name: [id number]
[2020-09-13] MEDS ORDERED: POTASSIUM CHLORIDE ER 20 MEQ TAB PO ONE (07:11)
[2020-09-13] MEDS ORDERED: IBUPROFEN 600 MG TAB PO ONE (07:14)
--- NOTE | 2020-09-13 07:19 | Emergency Department Report ---
ED Chest Pain HPI - General Chief Complaint: Chest Pain Stated Complaint: CHEST PAIN/SOB/BACK PAIN Source: patient Mode of arrival: Ambulatory Limitations: Physical Limitation - History of Present Illness Initial Comments: This is a 59-year-old -Italian male, who is well-known to both myself in this emergency department, who presents with a complaint of shortness of breath and mild generalized chest discomfort. The patient has been in the emergency department for about 7 hours prior to my shift starting and has had a work-up that included EKG, chest x-ray, and labs including multiple troponins. At the time my examination the patient is sleeping, resting comfortably, but easily arousable. Patient has a past medical history of alcohol abuse, chronic back pain from degenerative disc disease, recurrent chest pains, GERD. He did not take anything for his symptoms prior to presentation today. He denies any fever, cough, lower extremity swelling, nausea, vomiting or diaphoresis. Patient had a cardiac catheterization done in October 2019 that did not require any stenting or transfer for bypass and was to be medically managed. Patient has had many referrals to cardiology but has not yet seen them outpatient. Patient denies any illicit drug use. No recent travel or sick contacts at home. - Related Data Previous Rx's Medication Instructions Recorded Last Taken Type Aspirin 325 mg PO QDAY #30 tablet 10/23/19 Unknown Rx Metoprolol [Lopressor TAB] 25 mg PO BID #60 tablet 10/23/19 Unknown Rx Aspirin 325 mg PO QDAY #30 tablet 05/16/20 Unknown Rx Metoprolol [Lopressor TAB] 25 mg PO BID #60 tablet 05/16/20 Unknown Rx Pravastatin [Pravachol] 20 mg PO QHS #30 tablet 05/16/20 Unknown Rx Ondansetron [Zofran Odt] 4 mg PO Q8HR PRN #10 tab.rapdis 08/12/20 Unknown Rx Esomeprazole Magnesium [NexIUM] 40 mg PO QDAY #30 capsule 08/14/20 Unknown Rx Folic Acid [Folvite] 1 mg PO QDAY #30 tablet 08/14/20 Unknown Rx Multivitamin with Folic Acid [Cvs 400 mcg PO QDAY #30 tablet 08/14/20 Unknown Rx One Daily Essential Tablet] Thiamine [Vitamin B-1] 100 mg PO QDAY #30 tablet 08/14/20 Unknown Rx Ondansetron [Zofran ODT TAB] 4 mg PO Q8HR #14 tab.rapdis 09/10/20 Unknown Rx Pantoprazole [Protonix TAB] 40 mg PO QDAY #30 tablet 09/10/20 Unknown Rx Allergies Allergy/AdvReac Type Severity Reaction Status Date / Time No Known Allergies Allergy Verified 08/20/20 11:45 Heart Score - HEART Score History: Slightly suspicious EKG: Non-specific Age: 45-65 Risk factors: 1-2 risk factors Troponin: < normal limit HEART Score: 3 - EKG Read Time Time EKG Completed: 01:35 EKG Read Time: 01:40 - Critical Actions Critical Actions: 0-3 pts:0.9-1.7%risk of adverse cardiac event.Candidate for discharge ED Review of Systems ROS: Stated complaint: CHEST PAIN/SOB/BACK PAIN Other details as noted in HPI Comment: All other systems reviewed and negative Constitutional: denies: chills, fever Eyes: denies: eye pain, vision change ENT: denies: ear pain, throat pain Respiratory: shortness of breath. denies: cough Cardiovascular: chest pain. denies: palpitations Gastrointestinal: denies: abdominal pain, vomiting Genitourinary: denies: dysuria, discharge Musculoskeletal: denies: back pain, arthralgia Skin: denies: rash, lesions Neurological: denies: headache, weakness ED Past Medical Hx - Past Medical History Previous Medical History?: Yes Hx Hypertension: Yes Hx CVA: Yes (left) Hx Heart Attack/AMI: Yes Hx Congestive Heart Failure: No Hx Diabetes: No Hx Asthma: No Hx COPD: No Hx HIV: No Additional medical history: chronic pain in back, neck and L knee, ETOH abuse. herniated disc - Surgical History Past Surgical History?: Yes Additional Surgical History: Left Knee. skin graft to right hand, left hip surgery - Social History Smoking Status: Never Smoker Substance Use Type: Alcohol - Medications Home Medications: Home Medications Medication Instructions Recorded Confirmed Last Taken Type Aspirin 325 mg PO QDAY #30 tablet 10/23/19 Unknown Rx Metoprolol [Lopressor TAB] 25 mg PO BID #60 tablet 10/23/19 Unknown Rx Aspirin 325 mg PO QDAY #30 tablet 05/16/20 Unknown Rx Metoprolol [Lopressor TAB] 25 mg PO BID #60 tablet 05/16/20 Unknown Rx Pravastatin [Pravachol] 20 mg PO QHS #30 tablet 05/16/20 Unknown Rx Ondansetron [Zofran Odt] 4 mg PO Q8HR PRN #10 tab.rapdis 08/12/20 Unknown Rx Esomeprazole Magnesium [NexIUM] 40 mg PO QDAY #30 capsule. 08/14/20 Unknown Rx Folic Acid [Folvite] 1 mg PO QDAY #30 tablet 08/14/20 Unknown Rx Multivitamin with Folic Acid [Cvs 400 mcg PO QDAY #30 tablet 08/14/20 Unknown Rx One Daily Essential Tablet] Thiamine [Vitamin B-1] 100 mg PO QDAY #30 tablet 08/14/20 Unknown Rx Ondansetron [Zofran ODT TAB] 4 mg PO Q8HR #14 tab.rapdis 09/10/20 Unknown Rx Pantoprazole [Protonix TAB] 40 mg PO QDAY #30 tablet 09/10/20 Unknown Rx ED Physical Exam - General Limitations: Physical Limitation - Other Other exam information: GENERAL: The patient is well-developed well-nourished. HENT: Normocephalic. Atraumatic. Patient has moist mucous membranes. EYES: Extraocular motions are intact. NECK: Supple. Trachea is midline. CHEST/LUNGS: Clear to auscultation. There is no respiratory distress noted. HEART/CARDIOVASCULAR: Regular. There is no tachycardia. There is no murmur. ABDOMEN: Abdomen is soft, nontender. Patient has normal bowel sounds. SKIN: Skin is warm and dry. NEURO: The patient is awake, alert, and oriented. The patient is cooperative. The patient has no focal neurologic deficits. Normal speech. MUSCULOSKELETAL: There is no tenderness or deformity. There is no limitation range of motion. ED Course Vital Signs 09/13/20 09/13/20 01:17 08:51 Temperature 98.0 F Pulse Rate 109 H 100 H Respiratory 18 18 Rate Blood Pressure 103/70 Blood Pressure 108/63 [Left] O2 Sat by Pulse 97 100 Oximetry MERT score - Mert Score Age > 65: (0) No Aspirin use within the Past 7 Days: (0) No 3 or more CAD Risk Factors: (0) No 2 or more Angina events in past 24 hrs: (1) Yes Known CAD with more than 50% Stenosis: (0) No Elevated Cardiac Markers: (0) No ST Deviation Greater than 0.5mm: (0) No MERT Score: 1 ED Medical Decision Making - Lab Data Result diagrams: 09/13/20 01:27 09/13/20 01:27 Lab Results 09/13/20 09/13/20 09/13/20 Range/Units 01:27 01:27 04:55 WBC 4.1 L (4.5-11.0) K/mm3 RBC 4.07 (3.65-5.03) M/mm3 Hgb 12.1 (11.8-15.2) gm/dl Hct 35.7 (35.5-45.6) % MCV 88 (84-94) fl MCH 30 (28-32) pg MCHC 34 (32-34) % RDW 16.9 H (13.2-15.2) % Plt Count 129 L (140-440) K/mm3 Lymph % (Auto) 41.6 H (13.4-35.0) % Norton % (Auto) 13.7 H (0.0-7.3) % Eos % (Auto) 2.7 (0.0-4.3) % Baso % (Auto) 1.4 (0.0-1.8) % Lymph # (Auto) 1.7 (1.2-5.4) K/mm3 Norton # (Auto) 0.6 (0.0-0.8) K/mm3 Eos # (Auto) 0.1 (0.0-0.4) K/mm3 Baso # (Auto) 0.1 (0.0-0.1) K/mm3 Seg Neutrophils % 40.6 (40.0-70.0) % Seg Neutrophils # 1.7 L (1.8-7.7) K/mm3 Sodium 138 (137-145) mmol/L Potassium 3.3 L (3.6-5.0) mmol/L Chloride 99.6 (98-107) mmol/L Carbon Dioxide 21 L (22-30) mmol/L Anion Gap 21 mmol/L BUN 4 L (9-20) mg/dL Creatinine 0.6 L (0.8-1.3) mg/dL Estimated GFR > 60 ml/min BUN/Creatinine Ratio 7 % Glucose 171 H (75-100) mg/dL Calcium 8.2 L (8.4-10.2) mg/dL Total Bilirubin 0.80 (0.1-1.2) mg/dL AST 182 H (5-40) units/L ALT 56 (7-56) units/L Alkaline Phosphatase 265 H (35-129) units/L Troponin T < 0.010 < 0.010 (0.00-0.029) ng/mL Total Protein 6.7 (6.3-8.2) g/dL Albumin 3.6 L (3.9-5) g/dL Albumin/Globulin Ratio 1.2 % - EKG Data -: EKG Interpreted by Me EKG shows normal: sinus rhythm, axis, intervals (Prolonged ND interval), QRS complexes (Q waves to the septal leads), ST-T waves Rate: tachycardia (104 bpm) - EKG Data When compared to previous EKG there are: no significant change Interpretation: unchanged when compared t (08/31/20) - Radiology Data Radiology results: image reviewed interpreted by me: Chest x-ray does not show any acute process. There are no pleural effusions, obvious pneumonia and there is no pneumothorax. No widened mediastinum. - Medical Decision Making This patient presents to the emergency department with a complaint of some generalized chest discomfort and shortness of breath. At the time of my examination the patient is sleeping, and/or resting comfortably, but is easily arousable. He does not appear in any respiratory or acute distress. Heart and lung sounds are normal to auscultation. EKG does not have any morphology consistent with ST elevation myocardial infarction and is unchanged from previous. Chest x-ray does not show any pneumonia, pleural effusions, pneumothorax, widened mediastinum, or any other acute process. Patient's labs have been unremarkable including CBC, metabolic panel, negative troponins x2. Patient is low on the heart and MERT score. The patient had a heart catheterization done in the last year that did not show any significant occlusions or require any stenting. The patient does not have any risks of thromboembolic disease. Vital signs have been reassuring including being afebrile and no hypoxia. For this reason the patient appears safe for discharge home at this time. His contact information has been sent over to the [facility], and someone from their office should be contacting him shortly for close outpatient follow-up as part of our [facility] low risk ch est pain protocol. Critical Care Time: No Critical care attestation.: If time is entered above; I have spent that time in minutes in the direct care of this critically ill patient, excluding procedure time. ED Disposition Clinical Impression: Intermittent chest pain Disposition: DC-01 TO HOME OR SELFCARE Is pt being admited?: No Condition: Stable Instructions: Nonspecific Chest Pain, Adult Additional Instructions: Please follow-up with a primary care physician in the next few days. I have given you a referral for a local primary care physician, Dr. Shah, and a primary care clinic, [facility]. I have sent your contact information over to the [facility], and someone from their office should be contacting you shortly for close outpatient follow-up. Just in case, I am giving a referral for one of their director hardware, Dr. Betancourt. Return to the emergency department with any worsening of your symptoms, new or concerning symptoms not addressed during this current emergency department visit, or with any acute distress. Referrals: PRIMARY CAREMD [Primary Care Provider] - 3-5 Days MATHEW SHAH MD [Staff Physician] - 3-5 Days CHANTELLE BETANCOURT MD [Staff Physician] - 3-5 Days [facility] [Provider Group] - 3-5 Days
[2020-09-13 08:52] VITALS: BP 108/63
--- NOTE | 2020-09-13 18:04 | Electrocardiograph Report ---
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
== END 2020-09-13 08:52 | disposition home or self-care (01) ==
LOC: ED 23:21
DX: R07.89 Other chest pain (principal); I10 Essential (primary) hypertension; I25.2 Old myocardial infarction; Z86.73 Personal history of transient ischemic attack (TIA), and cerebral infarction without residual deficits; Z98.890 Other specified postprocedural states; Z79.899 Other long term (current) drug therapy
CPT/HCPCS: 36415; 71046; 80053; 84484; 85025; 93005

== ENCOUNTER 2020-09-16 00:06 | Emergency (ER) | payer MEDICAID ==
[2020-09-16] MEDS ORDERED: ASPIRIN 325 MG TAB PO ONE (03:25)
--- NOTE | 2020-09-16 04:09 | XRay Report ---
XR chest 1V ap INDICATION / CLINICAL INFORMATION: Chest pain. COMPARISON: 09/13/2020 FINDINGS: SUPPORT DEVICES: None. HEART /PULMONARY VASCULATURE: No significant abnormality. LUNGS / PLEURA: No significant pulmonary or pleural abnormality. No pneumothorax. ADDITIONAL FINDINGS: No significant additional findings. IMPRESSION: 1. No acute findings. Signer Name: Tom Amador MD Signed: 09/16/2020 4:05 AM Workstation Name: [id number]
[2020-09-16 04:28] LABS: Hematocrit 38.1 % (35.5-45.6); Hemoglobin 12.9 gm/dl (11.8-15.2); Mean Corpuscular HGB Conc 34 % (32-34); Mean Corpuscular Volume 89 fl (84-94); Platelet Count 148 K/mm3 (140-440); Red Blood Count 4.27 M/mm3 (3.65-5.03); Red Cell Distribution Width 17.4 % (13.2-15.2)
[2020-09-16 04:44] LABS: Alanine Aminotransferase 58 units/L (7-56); Blood Urea Nitrogen 4 mg/dL (9-20); Calcium 8.8 mg/dL (8.4-10.2); Hemolysis Index 3
[2020-09-16 04:45] LABS: BUN/Creatinine Ratio 8
[2020-09-16 07:27] LABS: Anisocytosis 1+; Platelet Estimate Consistent w Auto; Total Cells Counted 100
--- NOTE | 2020-09-16 11:26 | Emergency Department Report ---
ED General Adult HPI - General Chief complaint: Chest Pain Stated complaint: NAUSEA, CHEST PAIN,SOB Time Seen by Provider: 09/16/20 11:24 Source: patient Mode of arrival: Ambulatory Limitations: No Limitations - History of Present Illness Initial comments: 59-year-old -[place] male that is well-known here to our emergency room presents to the ER for chest pain, back pain and shortness of breath. Patient states all his symptoms has improved since sitting out in the waiting room. Patient is requesting a referral to [facility]. Patient states that he has been looking for to follow-up but keeps getting lost. Patient states that his chest pain has started after he ate a hot dog from [employer]. Onset/Timin -: days(s) Location: chest Radiation: non-radiation Consistency: intermittent Improves with: other Worsens with: none Associated Symptoms: chest pain, shortness of breath, other (Back pain) Treatments Prior to Arrival: none - Related Data Previous Rx's Medication Instructions Recorded Last Taken Type Aspirin 325 mg PO QDAY #30 tablet 10/23/19 Unknown Rx Metoprolol [Lopressor TAB] 25 mg PO BID #60 tablet 10/23/19 Unknown Rx Aspirin 325 mg PO QDAY #30 tablet 05/16/20 Unknown Rx Metoprolol [Lopressor TAB] 25 mg PO BID #60 tablet 05/16/20 Unknown Rx Pravastatin [Pravachol] 20 mg PO QHS #30 tablet 05/16/20 Unknown Rx Ondansetron [Zofran Odt] 4 mg PO Q8HR PRN #10 tab.rapdis 08/12/20 Unknown Rx Esomeprazole Magnesium [NexIUM] 40 mg PO QDAY #30 capsule. 08/14/20 Unknown Rx Folic Acid [Folvite] 1 mg PO QDAY #30 tablet 08/14/20 Unknown Rx Multivitamin with Folic Acid [Cvs 400 mcg PO QDAY #30 tablet 08/14/20 Unknown Rx One Daily Essential Tablet] Thiamine [Vitamin B-1] 100 mg PO QDAY #30 tablet 08/14/20 Unknown Rx Ondansetron [Zofran ODT TAB] 4 mg PO Q8HR #14 tab.rapdis 09/10/20 Unknown Rx Pantoprazole [Protonix TAB] 40 mg PO QDAY #30 tablet 09/10/20 Unknown Rx Allergies Allergy/AdvReac Type Severity Reaction Status Date / Time No Known Allergies Allergy Verified 08/20/20 11:45 ED Review of Systems ROS: Stated complaint: NAUSEA, CHEST PAIN,SOB Other details as noted in HPI Comment: All other systems reviewed and negative ED Past Medical Hx - Past Medical History Previous Medical History?: Yes Hx Hypertension: Yes Hx CVA: Yes (left) Hx Heart Attack/AMI: Yes Hx Congestive Heart Failure: No Hx Diabetes: No Hx Asthma: No Hx COPD: No Hx HIV: No Additional medical history: chronic pain in back, neck and L knee, ETOH abuse. herniated disc - Surgical History Past Surgical History?: Yes Additional Surgical History: Left Knee. skin graft to right hand, left hip surgery - Social History Smoking Status: Never Smoker Substance Use Type: Alcohol - Medications Home Medications: Home Medications Medication Instructions Recorded Confirmed Last Taken Type Aspirin 325 mg PO QDAY #30 tablet 10/23/19 Unknown Rx Metoprolol [Lopressor TAB] 25 mg PO BID #60 tablet 10/23/19 Unknown Rx Aspirin 325 mg PO QDAY #30 tablet 05/16/20 Unknown Rx Metoprolol [Lopressor TAB] 25 mg PO BID #60 tablet 05/16/20 Unknown Rx Pravastatin [Pravachol] 20 mg PO QHS #30 tablet 05/16/20 Unknown Rx Ondansetron [Zofran Odt] 4 mg PO Q8HR PRN #10 tab.rapdis 08/12/20 Unknown Rx Esomeprazole Magnesium [NexIUM] 40 mg PO QDAY #30 capsule. 08/14/20 Unknown Rx Folic Acid [Folvite] 1 mg PO QDAY #30 tablet 08/14/20 Unknown Rx Multivitamin with Folic Acid [Cvs 400 mcg PO QDAY #30 tablet 08/14/20 Unknown Rx One Daily Essential Tablet] Thiamine [Vitamin B-1] 100 mg PO QDAY #30 tablet 08/14/20 Unknown Rx Ondansetron [Zofran ODT TAB] 4 mg PO Q8HR #14 tab.rapdis 09/10/20 Unknown Rx Pantoprazole [Protonix TAB] 40 mg PO QDAY #30 tablet 09/10/20 Unknown Rx ED Physical Exam - General Limitations: No Limitations General appearance: alert, in no apparent distress, other (Disheveled) - Head Head exam: Present: atraumatic, normocephalic - Eye Eye exam: Present: normal appearance - ENT ENT exam: Present: mucous membranes moist - Neck Neck exam: Present: normal inspection, full ROM - Respiratory Respiratory exam: Present: normal lung sounds bilaterally. Absent: respiratory distress, wheezes, accessory muscle use - Cardiovascular Cardiovascular Exam: Present: regular rate, normal rhythm. Absent: systolic murmur, diastolic murmur, rubs, gallop - GI/Abdominal GI/Abdominal exam: Present: soft, normal bowel sounds. Absent: distended, tenderness - Extremities Exam Extremities exam: Present: normal inspection, full ROM. Absent: pedal edema - Back Exam Back exam: Present: normal inspection, full ROM - Neurological Exam Neurological exam: Present: alert, oriented X3, CN II-XII intact - Psychiatric Psychiatric exam: Present: normal affect, normal mood - Skin Skin exam: Present: warm, dry, intact, normal color. Absent: rash ED Course Vital Signs 09/16/20 03:17 Temperature 98 F Pulse Rate 92 H Respiratory 18 Rate Blood Pressure 128/78 O2 Sat by Pulse 100 Oximetry ED Medical Decision Making - Lab Data Result diagrams: 09/16/20 03:50 09/16/20 03:50 - Medical Decision Making 59-year-old -[place] male that is well-known here to our emergency room presents to the ER for chest pain, back pain and shortness of breath. Patient states all his symptoms has improved since sitting out in the waiting room. Patient is requesting a referral to [facility]. Patient states th at he has been looking for to follow-up but keeps getting lost. Patient states that his chest pain has started after he ate a hot dog from [employer]. Labs are stable. Chest pain back pain shortness of breath has all improved while sitting here in the waiting room. Discussed with patient I will refer him to [facility] as he requests. The patient is resting comfortably and feeling better, is alert and in no distress. The repeat examination is unremarkable and benign. The electroca rdiogram shows no signs of acute ischemia and the history, exam, diagnostic testing and current condition do not suggest that this patient is having acute myocardial infarction, significant arrhythmia, unstable angina, esophageal perforation, pulmonary embolism, aortic dissection, pneumothorax, severe pneumonia, sepsis or other significant pathology that would warrant further testing, continued ED treatment, admission, or cardiology or other specialist consultation at this point. The vital signs have been stable. The patient's condition is stable and appropriate for discharge. The patient will pursue further outpatient evaluation with primary care physician, other designated physician or veneer jointer offbearer. The patient and/or caregiver have expressed a clear in thorough understanding and agrees to the follow-up as instructed. Critical care attestation.: If time is entered above; I have spent that time in minutes in the direct care of this critically ill patient, excluding procedure time. ED Disposition Clinical Impression: GERD (gastroesophageal reflux disease), Intermittent chest pain Disposition: TO HOME OR SELFCARE Is pt being admited?: No Does the pt Need Aspirin: No Condition: Stable Instructions: Nonspecific Chest Pain, Adult, Food Choices for Gastroesophageal Reflux Disease, Adult, [id number] Additional Instructions: Please continue with your chronic medications. Follow-up with a primary care provider as well as her veneer jointer offbearer. Referrals: OREN LIRAWILMINGTON MD LEILANI [Primary Care Provider] - 3-5 Days [facility] [Provider Group] - 3-5 Days LIBAN VARGAS MD [Staff Physician] - 3-5 Days Time of Disposition: 11:31
[2020-09-16 11:41] VITALS: BP 128/89
--- NOTE | 2020-09-18 17:50 | Electrocardiograph Report ---
[facility] Test Date: 2020-09-16 Test Time: 03:41:55 Pat Name: REBECCA ELIZABETH Department: Room: Gender: M Hooker Up: MERVAT : 1960 Requested By: MAGALYS JEFFERSON Order Number: [id number] Reading MD: Deena Langston Measurements Intervals [place] Rate: 92 P: 82 MN: 210 QRS: 23 QRSD: 82 T: 49 QT: 381 QTc: 472 Interpretive Statements Sinus rhythm Borderline prolonged MN interval Probable left atrial enlargement Anterior infarct, old Compared to ECG 09/13/2020 01:35:21 No significant change Electronically Signed On 09-18-2020 17:50:28 EDT by Deena Langston
== END 2020-09-16 11:48 | disposition home or self-care (01) ==
LOC: ED 00:06
DX: K21.9 Gastro-esophageal reflux disease without esophagitis (principal); R07.89 Other chest pain; I10 Essential (primary) hypertension; I25.2 Old myocardial infarction; Z98.890 Other specified postprocedural states; Z86.73 Personal history of transient ischemic attack (TIA), and cerebral infarction without residual deficits; Z79.899 Other long term (current) drug therapy
CPT/HCPCS: 36415; 71045; 80053; 84484; 85007; 85025; 93005

== ENCOUNTER 2020-09-16 23:16 | Emergency (ER) | payer MEDICAID | END 2020-09-17 | LOC: ED 23:16 | DX: R06.02 Shortness of breath (principal); R11.2 Nausea with vomiting, unspecified; Z53.21 Procedure and treatment not carried out due to patient leaving prior to being seen by health care provider | CPT/HCPCS: 36415; 71045; 80053; 84484; 85007; 85025; 93005 ==

== ENCOUNTER 2020-09-25 00:29 | Emergency (ER) | payer MEDICAID | END 2020-09-25 11:00 | LOC: ED 00:29 | DX: R07.9 Chest pain, unspecified (principal); Z53.21 Procedure and treatment not carried out due to patient leaving prior to being seen by health care provider ==

== ENCOUNTER 2020-09-28 04:37 | Emergency (ER) | payer MEDICAID ==
[2020-09-28 04:52] VITALS: BP 118/83
--- NOTE | 2020-09-28 05:38 | XRay Report ---
CHEST 2 VIEWS INDICATION / CLINICAL INFORMATION: TANVI. COMPARISON: 09/16/2020 FINDINGS: SUPPORT DEVICES: None. HEART / MEDIASTINUM: No significant abnormality. LUNGS / PLEURA: No significant pulmonary or pleural abnormality. No pneumothorax. ADDITIONAL FINDINGS: No significant additional findings. IMPRESSION: 1. No acute findings. Signer Name: Raffy Choe MD Signed: 09/28/2020 5:33 AM Workstation Name: [id number]
[2020-09-28 06:23] LABS: Basophils % (Auto) 1.2 % (0.0-1.8); Eosinophils # (Auto) 0.1 K/mm3 (0.0-0.4); Eosinophils % (Auto) 2.9 % (0.0-4.3); Hematocrit 36.7 % (35.5-45.6); Hemoglobin 12.5 gm/dl (11.8-15.2); Lymphocytes # (Auto) 1.6 K/mm3 (1.2-5.4); Lymphocytes % (Auto) 43.6 % (13.4-35.0); Mean Corpuscular HGB Conc 34 % (32-34); Mean Corpuscular Volume 89 fl (84-94); Monocytes # (Auto) 0.6 K/mm3 (0.0-0.8); Monocytes % (Auto) 15.5 % (0.0-7.3); Platelet Count 129 K/mm3 (140-440); Red Blood Count 4.15 M/mm3 (3.65-5.03)
[2020-09-28 06:49] LABS: Alanine Aminotransferase 37 units/L (7-56); Albumin 3.4 g/dL (3.9-5); Blood Urea Nitrogen 4 mg/dL (9-20); Calcium 8.1 mg/dL (8.4-10.2); Hemolysis Index 4
[2020-09-28 06:52] LABS: BUN/Creatinine Ratio 7
== END 2020-09-28 11:00 | disposition left against medical advice (07) ==
LOC: ED 04:37
DX: M54.6 Pain in thoracic spine (principal); Z53.21 Procedure and treatment not carried out due to patient leaving prior to being seen by health care provider
CPT/HCPCS: 36415; 71046; 80053; 83690; 84484; 85025

== ENCOUNTER 2020-10-07 02:07 | Emergency (ER) | payer MEDICAID ==
[2020-10-07] MEDS ORDERED: ASPIRIN 325 MG TAB PO ONE (04:00)
[2020-10-07 04:02] VITALS: BP 119/71
[2020-10-07 04:54] LABS: Hematocrit 33.2 % (35.5-45.6); Hemoglobin 11.2 gm/dl (11.8-15.2); Mean Corpuscular HGB Conc 34 % (32-34); Mean Corpuscular Volume 91 fl (84-94); Platelet Count 139 K/mm3 (140-440); Red Blood Count 3.65 M/mm3 (3.65-5.03); Red Cell Distribution Width 15.4 % (13.2-15.2)
[2020-10-07 05:21] LABS: Alanine Aminotransferase 35 units/L (7-56); Albumin 3.5 g/dL (3.9-5); Blood Urea Nitrogen 4 mg/dL (9-20); Hemolysis Index 1
[2020-10-07 05:26] LABS: BUN/Creatinine Ratio 7
[2020-10-07 07:30] LABS: Anisocytosis 1+; Platelet Estimate Consistent w Auto; Total Cells Counted 100
--- NOTE | 2020-10-09 10:36 | Electrocardiograph Report ---
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
== END 2020-10-08 01:00 ==
LOC: ED 02:07
DX: R06.02 Shortness of breath (principal); Z53.21 Procedure and treatment not carried out due to patient leaving prior to being seen by health care provider
CPT/HCPCS: 36415; 80053; 84484; 85007; 85025; 93005

== ENCOUNTER 2020-10-11 23:18 | Emergency (ER) | payer MEDICAID ==
[2020-10-12 03:14] VITALS: BP 172/97
[2020-10-12] MEDS ORDERED: ASPIRIN 325 MG TAB PO ONE (03:19)
[2020-10-12 03:55] LABS: Hematocrit 30.8 % (35.5-45.6); Hemoglobin 10.6 gm/dl (11.8-15.2); Mean Corpuscular HGB Conc 34 % (32-34); Mean Corpuscular Volume 92 fl (84-94); Platelet Count 213 K/mm3 (140-440); Red Blood Count 3.35 M/mm3 (3.65-5.03); Red Cell Distribution Width 15.1 % (13.2-15.2)
--- NOTE | 2020-10-12 04:01 | XRay Report ---
CHEST 1 VIEW 10/12/2020 2:52 AM INDICATION / CLINICAL INFORMATION: Chest pain and SOB. COMPARISON: 09/28/20 FINDINGS: SUPPORT DEVICES: None. HEART / MEDIASTINUM: No significant abnormality. LUNGS / PLEURA: No significant pulmonary or pleural abnormality. No pneumothorax. ADDITIONAL FINDINGS: No significant additional findings. IMPRESSION: 1. No acute findings. Signer Name: Dougie Reynolds MD Signed: 10/12/2020 3:57 AM Workstation Name: [id number]
[2020-10-12 04:18] LABS: Alanine Aminotransferase 23 units/L (7-56); Albumin 3.6 g/dL (3.9-5); Blood Urea Nitrogen 4 mg/dL (9-20); Calcium 8.7 mg/dL (8.4-10.2); Hemolysis Index 2
[2020-10-12 04:22] LABS: BUN/Creatinine Ratio 8
[2020-10-12 06:14] LABS: Total Cells Counted 100
[2020-10-12 06:16] LABS: Platelet Estimate Consistent w Auto
[2020-10-12 06:17] LABS: Target Cells Rare
--- NOTE | 2020-10-12 11:14 | Electrocardiograph Report ---
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
== END 2020-10-12 19:00 | disposition left against medical advice (07) ==
LOC: ED 23:18
DX: R07.9 Chest pain, unspecified (principal); Z53.21 Procedure and treatment not carried out due to patient leaving prior to being seen by health care provider
CPT/HCPCS: 36415; 71045; 80053; 84484; 85007; 85025; 93005

== ENCOUNTER 2020-11-22 22:59 | Emergency (ER) | payer MEDICAID ==
--- NOTE | 2020-11-23 00:24 | Event Note ---
ED Screening Note Date of service: 11/23/20 Time: 00:23 ED Screening Note: 60-year-old male patient with history of prior stroke, prior NH, and chronic alcohol use presents to the emergency department with complaints of left-sided chest pain, left-sided abdominal pain, and shortness of breath for 2.5 weeks. When asked what changed today, patient states, "it was so bad I couldn't sleep last night." Patient has not been evaluated by his primary care provider for his symptoms since onset. Tachycardic in triage. General: Awake, appropriately interactive, no acute distress. Neck: Supple. Full range of motion intact. Cardiovascular: Normal peripheral perfusion. Pulmonary: No respiratory distress. Patient is speaking normally without use of accessory muscles. Skin: No apparent rashes or lesions. Neurological: No facial asymmetry. Speech is clear. Follows commands. Patient is alert and oriented. Musculoskeletal: Moves all four extremities spontaneously with normal range of motion. Psych: Cooperative. Appropriate mood and affect. I have greeted and performed a focused rapid initial assessment of this patient. A comprehensive ED assessment and evaluation of the patient, analysis of all test results, and completion of the medical decision-making process will be conducted by additional ED providers. This initial assessment/diagnostic orders/clinical plan/treatment(s) is/are subject to change based on patients health status, clinical progression and re-assessment. Further treatment and workup at subsequent clinical provider's discretion. Patient/guardian urged not to elope from the ED as their condition may be serious if not clinically assessed and managed.
--- NOTE | 2020-11-23 01:08 | XRay Report ---
CHEST 2 VIEWS INDICATION / CLINICAL INFORMATION: chest pain. COMPARISON: 10/12/2020 FINDINGS: SUPPORT DEVICES: None. HEART / MEDIASTINUM: No significant abnormality. LUNGS / PLEURA: Mild elevation left hemidiaphragm No pneumothorax. ADDITIONAL FINDINGS: No significant additional findings. IMPRESSION: 1. No significant interval change Signer Name: Frank Marcelo MD Signed: 11/23/2020 1:04 AM Workstation Name: [id number]
[2020-11-23 01:13] LABS: Eosinophils # (Auto) 0.2 K/mm3 (0.0-0.4); Eosinophils % (Auto) 4.8 % (0.0-4.3); Hematocrit 36.3 % (35.5-45.6); Hemoglobin 12.2 gm/dl (11.8-15.2); Lymphocytes # (Auto) 2.4 K/mm3 (1.2-5.4); Lymphocytes % (Auto) 49.1 % (13.4-35.0); Mean Corpuscular HGB Conc 34 % (32-34); Mean Corpuscular Volume 87 fl (84-94); Monocytes # (Auto) 0.4 K/mm3 (0.0-0.8); Monocytes % (Auto) 8.5 % (0.0-7.3); Platelet Count 317 K/mm3 (140-440); Red Blood Count 4.16 M/mm3 (3.65-5.03)
[2020-11-23 01:35] LABS: Alanine Aminotransferase 14 units/L (7-56); Albumin 3.5 g/dL (3.9-5); Blood Urea Nitrogen 5 mg/dL (9-20); Calcium 8.9 mg/dL (8.4-10.2); Hemolysis Index 12
[2020-11-23 01:36] LABS: BUN/Creatinine Ratio 13
--- NOTE | 2020-11-23 01:36 | Emergency Department Report ---
ED Chest Pain HPI - General Chief Complaint: Dyspnea/Respdistress Stated Complaint: SOB/AB PAIN PUI?: No Time Seen by Provider: 11/23/20 01:31 Source: patient Mode of arrival: Ambulatory Limitations: No Limitations - History of Present Illness Initial Comments: Patient is a 60-year-old male who presents emergency room with complaints of epigastric pain, chest pain, shortness of breath. Patient symptoms started 2.5 weeks ago. Patient states his symptoms are worsening. Patient states is a burning sensation in the chest. Patient also complains of burping and acid taste in his mouth. Patient states the pain starts in the epigastrium radiates upward. Patient states his aunt and has bilateral chest. Patient usually. Sh ortness of breath is better with rest and worse with exertion. Patient denies recent travel. Patient denies recent international travel. Patient denies exposure to the novel coronavirus. Patient denies sick contacts. Patient denies fever and chills. Patient denies cough. Patient denies diarr hea. Patient denies coming in contact with anybody with symptoms of the novel coronavirus. Patient states he is not vaccinated against COVID-19. MD Complaint: chest pain -: Sudden, week(s) Pain Location: substernal, left chest, right chest, epigastric Severity: severe Quality: heaviness Consistency: constant Improves With: antacids, eating, rest Worsens With: eating, palpation re: dyspnea. denies: nausea, vomting, diaphoresis, sense of impending doom Other Symptoms: acid taste in mouth, burping. denies: cough, fever, syncope, rash, leg swelling, palpitations Treatments Prior to Arrival: other (Antacids) Aspirin use within the Past 7 Days: (1) Yes - Related Data On Oral Contraceptives: No Previous Rx's Medication Instructions Recorded Last Taken Type Aspirin 325 mg PO QDAY #30 tablet 10/23/19 Unknown Rx Metoprolol [Lopressor TAB] 25 mg PO BID #60 tablet 10/23/19 Unknown Rx Aspirin 325 mg PO QDAY #30 tablet 05/16/20 Unknown Rx Metoprolol [Lopressor TAB] 25 mg PO BID #60 tablet 05/16/20 Unknown Rx Pravastatin [Pravachol] 20 mg PO QHS #30 tablet 05/16/20 Unknown Rx Ondansetron [Zofran Odt] 4 mg PO Q8HR PRN #10 tab.rapdis 08/12/20 Unknown Rx Folic Acid [Folvite] 1 mg PO QDAY #30 tablet 08/14/20 Unknown Rx Multivitamin with Folic Acid [Cvs 400 mcg PO QDAY #30 tablet 08/14/20 Unknown Rx One Daily Essential Tablet] Thiamine [Vitamin B-1] 100 mg PO QDAY #30 tablet 08/14/20 Unknown Rx Ondansetron [Zofran ODT TAB] 4 mg PO Q8HR #14 tab.rapdis 09/10/20 Unknown Rx Pantoprazole [Protonix TAB] 40 mg PO QDAY #30 tablet 09/10/20 Unknown Rx Naproxen [Naprosyn] 500 mg PO BID #14 tablet 09/17/20 Unknown Rx Esomeprazole Magnesium [NexIUM] 40 mg PO QDAY #30 capsule. 11/23/20 Unknown Rx Allergies Allergy/AdvReac Type Severity Reaction Status Date / Time No Known Allergies Allergy Verified 09/17/20 07:29 Heart Score - HEART Score History: Slightly suspicious EKG: Normal Age: 45-65 Risk factors: > 3 risk factors or hx of atherosclerotic disease Troponin: < normal limit HEART Score: 3 - EKG Read Time Time EKG Completed: 01:08 EKG Read Time: 01:09 ED Review of Systems ROS: Stated complaint: SOB/AB PAIN Other details as noted in HPI Constitutional: denies: chills, fever Eyes: denies: eye pain, eye discharge, vision change ENT: denies: ear pain, throat pain Respiratory: shortness of breath. denies: cough, wheezing Cardiovascular: as per HPI, chest pain. denies: palpitations Endocrine: no symptoms reported Gastrointestinal: as per HPI, abdominal pain. denies: nausea, diarrhea Genitourinary: denies: urgency, dysuria Musculoskeletal: denies: back pain, joint swelling, arthralgia Skin: denies: rash, lesions Neurological: denies: headache, weakness, paresthesias Psychiatric: denies: anxiety, depression Hematological/Lymphatic: denies: easy bleeding, easy bruising ED Past Medical Hx - Past Medical History Previous Medical History?: Yes Hx Hypertension: Yes Hx CVA: Yes (left) Hx Heart Attack/AMI: Yes Hx Congestive Heart Failure: No Hx Diabetes: No Hx Asthma: No Hx COPD: No Hx HIV: No Additional medical history: chronic pain in back, neck and L knee, ETOH abuse. herniated disc - Surgical History Past Surgical History?: Yes Additional Surgical History: Left Knee. skin graft to right hand, left hip surgery - Family History Family history: no significant - Social History Smoking Status: Never Smoker Substance Use Type: None - Medications Home Medications: Home Medications Medication Instructions Recorded Confirmed Last Taken Type Aspirin 325 mg PO QDAY #30 tablet 10/23/19 Unknown Rx Metoprolol [Lopressor TAB] 25 mg PO BID #60 tablet 10/23/19 Unknown Rx Aspirin 325 mg PO QDAY #30 tablet 05/16/20 Unknown Rx Metoprolol [Lopressor TAB] 25 mg PO BID #60 tablet 05/16/20 Unknown Rx Pravastatin [Pravachol] 20 mg PO QHS #30 tablet 05/16/20 Unknown Rx Ondansetron [Zofran Odt] 4 mg PO Q8HR PRN #10 tab.rapdis 08/12/20 Unknown Rx Folic Acid [Folvite] 1 mg PO QDAY #30 tablet 08/14/20 Unknown Rx Multivitamin with Folic Acid [[facility]vs 400 mcg PO QDAY #30 tablet 08/14/20 Unknown R x One Daily Essential Tablet] Thiamine [Vitamin B-1] 100 mg PO QDAY #30 tablet 08/14/20 Unknown Rx Ondansetron [Zofran ODT TAB] 4 mg PO Q8HR #14 tab.rapdis 09/10/20 Unknown Rx Pantoprazole [Protonix TAB] 40 mg PO QDAY #30 tablet 09/10/20 Unknown Rx Naproxen [Naprosyn] 500 mg PO BID #14 tablet 09/17/20 Unknown Rx Esomeprazole Magnesium [NexIUM] 40 mg PO QDAY #30 capsule.dr 11/23/20 Unknown Rx ED Physical Exam - General Limitations: No Limitations General appearance: alert, in no apparent distress - Head Head exam: Present: atraumatic, normocephalic - Eye Eye exam: Present: normal appearance - ENT ENT exam: Present: mucous membranes moist - Neck Neck exam: Present: normal inspection - Respiratory Respiratory exam: Present: normal lung sounds bilaterally, chest wall tenderness (Bilateral chest wall tenderness to palpation. Palpation of the chest wall and epigastric region reproduces symptoms.). Absent: respiratory distress - Cardiovascular Cardiovascular Exam: Present: regular rate, normal rhythm. Absent: systolic murmur, diastolic murmur, rubs, gallop - GI/Abdominal GI/Abdominal exam: Present: soft, tenderness (Epigastric tenderness), normal bowel sounds - Rectal Rectal exam: Present: deferred - Extremities Exam Extremities exam: Present: normal inspection - Back Exam Back exam: Present: normal inspection - Neurological Exam Neurological exam: Present: alert, oriented X3 - Psychiatric Psychiatric exam: Present: normal affect, normal mood - Skin Skin exam: Present: warm, dry, intact, normal color. Absent: rash ED Course Vital Signs 11/23/20 11/23/20 00:08 03:48 Temperature 97.8 F Pulse Rate 100 H 66 Respiratory 18 18 Rate Blood Pressure 115/73 Blood Pressure 130/64 [Left] O2 Sat by Pulse 100 98 Oximetry MERT score - Mert Score Age > 65: (0) No Aspirin use within the Past 7 Days: (0) No 3 or more CAD Risk Factors: (1) Yes 2 or more Angina events in past 24 hrs: (0) No Known CAD with more than 50% Stenosis: (0) No Elevated Cardiac Markers: (0) No ST Deviation Greater than 0.5mm: (0) No MERT Score: 1 ED Medical Decision Making - Lab Data Result diagrams: 11/23/20 00:28 11/23/20 00:28 - EKG Data -: EKG Interpreted by Me EKG shows normal: sinus rhythm, axis, intervals, QRS complexes, ST-T waves Rate: normal - Radiology Data Radiology results: report reviewed, image reviewed interpreted by me: Chest x-ray: No pneumonia, no pneumothorax, no foreign body, no osseous findings, no acute findings CHEST 2 VIEWS INDICATION / CLINICAL INFORMATION: chest pain. COMPARISON: 10/12/2020 FINDINGS: SUPPORT DEVICES: None. HEART / MEDIASTINUM: No significant abnormality. LUNGS / PLEURA: Mild elevation left hemidiaphragm No pneumothorax. ADDITIONAL FINDINGS: No significant additional findings. IMPRESSION: 1. No significant interval change - Medical Decision Making Patient is a 60-year-old male who presents emergency room with complaints of chest pain and epigastric pain. Patient has tender to palpation over the chest and the epigastric region. Patient was complained of burping and acid taste in the mouth. Patient states chest pain has been going on for over 2 weeks. Patient had a negative troponin. Patient had labs done that were essentially unremarkable. Patient had chest x-ray done. Patient's chest x-ray shows no acute findings. Patient had an EKG done. Patient's EKG is negative for acute findings. Patient's EKG shows a normal sinus rhythm. EKG shows normal ST. I personally reviewed the EKG and chest x-ray. Patient not require any further emergency medical service or inpatient services.. Patient stable for discharge. Patient will be discharged home. I discussed all results and clinical findings with patient. I discussed plan of care with patient. Patient agrees with plan of care. Patient is stable for discharge. Patient will be discharged home. Patient given discharge instructions. Patient voiced understanding of discharge instructions. - Differential Diagnosis Chest pain, chest wall pain, acid reflux, epigastric pain. Critical care attestation.: If time is entered above; I have spent that time in minutes in the direct care of this critically ill patient, excluding procedure time. ED Disposition Clinical Impression: Epigastric pain Chest pain Qualifiers: Chest pain type: unspecified Qualified Code(s): R07.9 - Chest pain, unspecified GERD (gastroesophageal reflux disease) Qualifiers: Esophagitis presence: with esophagitis Esophagitis bleeding: without hemorrhage Qualified Code(s): K21.00 - Gastro-esophageal reflux disease with esophagitis, without bleeding Disposition: HOME / SELF CARE / HOMELESS Is pt being admited?: No Does the pt Need Aspirin: No Condition: Stable Instructions: Indigestion, [id number], Food Choices for Gastroesophageal Reflux Disease, Adult, Nonspecific Chest Pain, Adult Additional Instructions: Patient to follow-up with primary care in 2 to 3 days. Patient to follow-up with gastroenterology and cardiology in 2 to 3 days. Patient to rest. Patient to increase water. Patient to avoid strenuous exercise or heavy lifting until cleared by primary care and cardiology. Patient to eat a reflux diet. Patient to take Tylenol as needed for pain. Patient to take meds as directed. Patient to return to the ER if condition worsens, changes or new symptoms arise. Prescriptions: Esomeprazole Magnesium [NexIUM] 40 mg PO QDAY #30 capsule.dr Referrals: CHANTELLE JACKSON MD [Staff Physician] - 2-3 Days KIMBERLY MAGUIRE MD [Staff Physician] - 2-3 Days Time of Disposition: 02:26
[2020-11-23 03:49] VITALS: BP 130/64
--- NOTE | 2020-11-24 13:27 | Electrocardiograph Report ---
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
== END 2020-11-23 03:46 | disposition home or self-care (01) ==
LOC: ED 22:59
DX: R10.13 Epigastric pain (principal); R07.89 Other chest pain; K21.9 Gastro-esophageal reflux disease without esophagitis; I10 Essential (primary) hypertension
CPT/HCPCS: 36415; 71046; 80053; 83735; 84484; 85025; 93005; 99283

== ENCOUNTER 2020-11-23 22:32 | Emergency (ER) | payer MEDICAID ==
[2020-11-24 08:01] VITALS: BP 100/70
== END 2020-11-24 08:35 | disposition left against medical advice (07) ==
LOC: ED 22:32
DX: M54.9 Dorsalgia, unspecified (principal); Z53.21 Procedure and treatment not carried out due to patient leaving prior to being seen by health care provider

== ENCOUNTER 2020-11-27 22:49 | Emergency (ER) | payer MEDICAID ==
--- NOTE | 2020-11-28 02:08 | Event Note ---
ED Screening Note ED Screening Note: 58-year-old female, past medical history of hypertension and alcohol abuse presents emerge department complaining of a 2 to 3-day history of chest pain associated with cough congestion and mucus production chest pain seemed to increase with exertion. Reports no lower extremity swelling no hemoptysis no hematemesis hematochezia. This initial assessment/diagnostic orders/clinical plan/treatment(s) is/are subject to change based on patients health status, clinical progression and re- assessment by fellow clinical providers in the ED. Further treatment and workup at subsequent clinical providers discretion. Patient/guardian urged not to elope from the ED as their condition may be serious if not clinically assessed and managed. Initial orders include: Chest pain evaluation and chest x-ray
[2020-11-28 02:49] LABS: Basophils # (Auto) 0.1 K/mm3 (0.0-0.1); Basophils % (Auto) 1.2 % (0.0-1.8); Eosinophils # (Auto) 0.3 K/mm3 (0.0-0.4); Eosinophils % (Auto) 5.9 % (0.0-4.3); Hematocrit 33.8 % (35.5-45.6); Hemoglobin 11.3 gm/dl (11.8-15.2); Lymphocytes # (Auto) 1.9 K/mm3 (1.2-5.4); Lymphocytes % (Auto) 38.4 % (13.4-35.0); Mean Corpuscular HGB Conc 33 % (32-34); Mean Corpuscular Volume 86 fl (84-94); Monocytes # (Auto) 0.5 K/mm3 (0.0-0.8); Monocytes % (Auto) 9.5 % (0.0-7.3); Platelet Count 281 K/mm3 (140-440); Red Blood Count 3.91 M/mm3 (3.65-5.03); Red Cell Distribution Width 15.5 % (13.2-15.2)
[2020-11-28 02:54] LABS: BUN/Creatinine Ratio 20; Blood Urea Nitrogen 6 mg/dL (9-20); Hemolysis Index 3
--- NOTE | 2020-11-28 02:55 | XRay Report ---
XR chest routine 2V INDICATION / CLINICAL INFORMATION: Chest Pain. COMPARISON: 11/23/2020 FINDINGS: SUPPORT DEVICES: None. HEART /PULMONARY VASCULATURE: No significant abnormality. LUNGS / PLEURA: No significant pulmonary or pleural abnormality. No pneumothorax. ADDITIONAL FINDINGS: No significant additional findings. IMPRESSION: 1. No acute findings. Signer Name: Tom Amador MD Signed: 11/28/2020 2:51 AM Workstation Name: [id number]
[2020-11-28] MEDS ORDERED: ACETAMINOPHEN 500 MG TAB PO ONE (08:04)
--- NOTE | 2020-11-28 08:04 | Emergency Department Report ---
ED General Adult HPI - General Chief complaint: Chest Pain Stated complaint: LEFT SIDE PAIN PUI?: No Time Seen by Provider: 11/28/20 08:00 Source: patient Mode of arrival: Ambulatory Limitations: No Limitations - History of Present Illness Initial comments: 60 yo male well known to us in ER Has been in ER overnight. Co left side cp 9/10 on arrival. On my exam he denied complaints and was asking for something to drink. SEE EMR FOR FREQUENT ER VISITS/SOCIAL VISITS -: Gradual, year(s) Location: chest Radiation: non-radiation Quality: burning Consistency: constant Improves with: none Worsens with: none Associated Symptoms: denies other symptoms - Related Data Previous Rx's Medication Instructions Recorded Last Taken Type Aspirin 325 mg PO QDAY #30 tablet 10/23/19 Unknown Rx Metoprolol [Lopressor TAB] 25 mg PO BID #60 tablet 10/23/19 Unknown Rx Aspirin 325 mg PO QDAY #30 tablet 05/16/20 Unknown Rx Metoprolol [Lopressor TAB] 25 mg PO BID #60 tablet 05/16/20 Unknown Rx Pravastatin [Pravachol] 20 mg PO QHS #30 tablet 05/16/20 Unknown Rx Ondansetron [Zofran Odt] 4 mg PO Q8HR PRN #10 tab.rapdis 08/12/20 Unknown Rx Folic Acid [Folvite] 1 mg PO QDAY #30 tablet 08/14/20 Unknown Rx Multivitamin with Folic Acid [Cvs 400 mcg PO QDAY #30 tablet 08/14/20 Unknown Rx One Daily Essential Tablet] Thiamine [Vitamin B-1] 100 mg PO QDAY #30 tablet 08/14/20 Unknown Rx Ondansetron [Zofran ODT TAB] 4 mg PO Q8HR #14 tab.rapdis 09/10/20 Unknown Rx Pantoprazole [Protonix TAB] 40 mg PO QDAY #30 tablet 09/10/20 Unknown Rx Naproxen [Naprosyn] 500 mg PO BID #14 tablet 09/17/20 Unknown Rx Esomeprazole Magnesium [NexIUM] 40 mg PO QDAY #30 capsule. 11/23/20 Unknown Rx Allergies Allergy/AdvReac Type Severity Reaction Status Date / Time No Known Allergies Allergy Verified 09/17/20 07:29 ED Review of Systems ROS: Stated complaint: LEFT SIDE PAIN Other details as noted in HPI Comment: All other systems reviewed and negative ED Past Medical Hx - Past Medical History Previous Medical History?: Yes Hx Hypertension: Yes Hx CVA: Yes (left) Hx Heart Attack/AMI: Yes Hx Congestive Heart Failure: No Hx Diabetes: No Hx Asthma: No Hx COPD: No Hx HIV: No Additional medical history: chronic pain in back, neck and L knee, ETOH abuse. herniated disc - Surgical History Past Surgical History?: Yes Additional Surgical History: Left Knee. skin graft to right hand, left hip surgery - Family History Family history: no significant - Social History Smoking Status: Never Smoker Substance Use Type: None - Medications Home Medications: Home Medications Medication Instructions Recorded Confirmed Last Taken Type Aspirin 325 mg PO QDAY #30 tablet 10/23/19 Unknown Rx Metoprolol [Lopressor TAB] 25 mg PO BID #60 tablet 10/23/19 Unknown Rx Aspirin 325 mg PO QDAY #30 tablet 05/16/20 Unknown Rx Metoprolol [Lopressor TAB] 25 mg PO BID #60 tablet 05/16/20 Unknown Rx Pravastatin [Pravachol] 20 mg PO QHS #30 tablet 05/16/20 Unknown Rx Ondansetron [Zofran Odt] 4 mg PO Q8HR PRN #10 tab.rapdis 08/12/20 Unknown Rx Folic Acid [Folvite] 1 mg PO QDAY #30 tablet 08/14/20 Unknown Rx Multivitamin with Folic Acid [Cvs 400 mcg PO QDAY #30 tablet 08/14/20 Unknown Rx One Daily Essential Tablet] Thiamine [Vitamin B-1] 100 mg PO QDAY #30 tablet 08/14/20 Unknown Rx Ondansetron [Zofran ODT TAB] 4 mg PO Q8HR #14 tab.rapdis 09/10/20 Unknown Rx Pantoprazole [Protonix TAB] 40 mg PO QDAY #30 tablet 09/10/20 Unknown Rx Naproxen [Naprosyn] 500 mg PO BID #14 tablet 09/17/20 Unknown Rx Esomeprazole Magnesium [NexIUM] 40 mg PO QDAY #30 lg. 11/23/20 Unknown Rx ED Physical Exam - General Limitations: No Limitations General appearance: alert, in no apparent distress - Head Head exam: Present: atraumatic, normocephalic - Eye Eye exam: Present: normal appearance - ENT ENT exam: Present: mucous membranes moist - Neck Neck exam: Present: normal inspection - Respiratory Respiratory exam: Present: normal lung sounds bilaterally. Absent: respiratory distress - Cardiovascular Cardiovascular Exam: Present: regular rate, normal rhythm. Absent: systolic murmur, diastolic murmur, rubs, gallop - GI/Abdominal GI/Abdominal exam: Present: soft, normal bowel sounds - Rectal Rectal exam: Present: deferred - Extremities Exam Extremities exam: Present: normal inspection - Back Exam Back exam: Present: normal inspection - Neurological Exam Neurological exam: Present: alert, oriented X3 - Psychiatric Psychiatric exam: Present: normal affect, normal mood - Skin Skin exam: Present: warm, dry, intact, normal color. Absent: rash ED Course Vital Signs 11/28/20 11/28/20 01:10 08:33 Temperature 98.0 F Pulse Rate 114 H 100 H Respiratory 16 17 Rate Blood Pressure 119/95 Blood Pressure 117/80 [Left] O2 Sat by Pulse 98 100 Oximetry ED Medical Decision Making - Lab Data Result diagrams: 11/28/20 02:16 11/28/20 02:16 - EKG Data -: EKG Interpreted by [place] EKG shows normal: sinus rhythm Rate: normal - EKG Data When compared to previous EKG there are: no significant change Interpretation: no acute changes - Radiology Data Radiology results: report reviewed, image reviewed [facility] - Medical Decision Making Labs 11/28/20 11/28/20 02:16 02:16 WBC 4.9 RBC 3.91 Hgb 11.3 L Hct 33.8 L MCV 86 MCH 29 MCHC 33 RDW 15.5 H Plt Count 281 Lymph % (Auto) 38.4 H Amelia % (Auto) 9.5 H Eos % (Auto) 5.9 H Baso % (Auto) 1.2 Lymph # (Auto) 1.9 Amelia # (Auto) 0.5 Eos # (Auto) 0.3 Baso # (Auto) 0.1 Seg Neutrophils % 45.0 Seg Neutrophils # 2.2 Sodium 136 L Potassium 4.3 Chloride 100.3 Carbon Dioxide 23 Anion Gap 17 BUN 6 L Creatinine 0.3 L Estimated GFR > 60 BUN/Creatinine Ratio 20 Glucose 97 Calcium 9.0 Troponin T < 0.010 Vital Signs 11/28/20 11/28/20 01:10 08:33 Temperature 98.0 F Pulse Rate 114 H 100 H Respiratory 16 17 Rate Blood Pressure 119/95 Blood Pressure 117/80 [Left] O2 Sat by Pulse 98 100 Oximetry pt has been in waiting room for several hours - at the time seen by provider at this time he denies any pain he has asked for something to eat lab noted ekg noted xray noted he is ambulatory and non ill appearing. taking po and in nad pt being dc home with dc plan of care including follow up. Pt verbalizes understanding of plan of care - Differential Diagnosis malingering/acs/uri Critical care attestation.: If time is entered above; I have spent that time in minutes in the direct care of this critically ill patient, excluding procedure time. ED Disposition Clinical Impression: ETOH abuse, Homelessness, Chronic hyponatremia, Frequent attender of accident and emergency department Disposition: 01 HOME / SELF CARE / HOMELESS Is pt being admited?: No Does the pt Need Aspirin: No Condition: Stable Instructions: Alcohol Abuse and Nutrition Additional Instructions: AVOID ALCOHOL AND DRUGS DRINK WATER MEDS YOU HAVE BEEN INSTRUCTED TO TAKE SEE PCP REFERRAL BELOW Referrals: PRIMARY MD ROVERTO [Primary Care Provider] - 3-5 Days MATHEW REAVES MD [Staff Physician] - 3-5 Days Time of Disposition: 08:04
[2020-11-28 08:35] VITALS: BP 117/80
== END 2020-11-28 08:33 | disposition home or self-care (01) ==
LOC: ED 22:49
DX: F10.10 Alcohol abuse, uncomplicated (principal); E87.1 Hypo-osmolality and hyponatremia; Z59.0 Homelessness; I10 Essential (primary) hypertension; Z86.73 Personal history of transient ischemic attack (TIA), and cerebral infarction without residual deficits; M25.562 Pain in left knee; M54.9 Dorsalgia, unspecified; M54.2 Cervicalgia; Z98.890 Other specified postprocedural states
CPT/HCPCS: 36415; 71046; 80048; 84484; 85025; 99283

== ENCOUNTER 2020-12-02 23:54 | Emergency (ER) | payer MEDICAID ==
[2020-12-03] MEDS ORDERED: ONDANSETRON 4 MG ODT TAB PO ONE (01:36)
--- NOTE | 2020-12-03 02:01 | Event Note ---
Date: 12/03/20 The patient was evaluated in the emergency department for symptoms described in the history of present illness. He/she was evaluated in the context of the global COVID-19 pandemic, which necessitated consideration that the patient might be at risk for infection with the virus that causes COVID-19. Institutional protocols and algorithms that pertain to the evaluation of patients at risk for COVID-19 are in a state of rapid change based on information released by regulatory bodies including the CDC and federal and state organizations. These policies and algorithms were followed during the patient's care in the emergency department. Please note that these policies, procedures and recommendations changed on a rapid basis. Medical screening examination note: The patient is a 60-year-old gentleman who is a frequent utilizer of this emergency room, typically presents with alcohol intoxication and chest pressure. The patient today complains of chest pressure, and alcohol intoxication. He has abrasions on his face. He states is from a pressure ulcer. He states he is not homicidal or suicidal. The patient is pleasantly intoxica mala. He arrives with his rolling walker and his belongings. Check appropriate labs, EKG, CT scan of the brain and cervical spine, reassess after clinical sobriety.
[2020-12-03 02:13] LABS: Basophils % (Auto) 0.3 % (0.0-1.8); Eosinophils # (Auto) 0.3 K/mm3 (0.0-0.4); Eosinophils % (Auto) 4.9 % (0.0-4.3); Hematocrit 35.2 % (35.5-45.6); Hemoglobin 11.8 gm/dl (11.8-15.2); Lymphocytes % (Auto) 31.7 % (13.4-35.0); Mean Corpuscular HGB Conc 34 % (32-34); Mean Corpuscular Volume 86 fl (84-94); Monocytes # (Auto) 0.8 K/mm3 (0.0-0.8); Monocytes % (Auto) 13.3 % (0.0-7.3); Platelet Count 221 K/mm3 (140-440); Red Blood Count 4.09 M/mm3 (3.65-5.03); Red Cell Distribution Width 16.3 % (13.2-15.2)
--- NOTE | 2020-12-03 02:27 | XRay Report ---
CHEST 1 VIEW INDICATION / CLINICAL INFORMATION: dyspnea STUDY TIME: 206 COMPARISON: 11/28/2020 FINDINGS: SUPPORT DEVICES: None HEART / MEDIASTINUM: No significant abnormality. LUNGS / PLEURA: No significant pulmonary or pleural abnormality. No pneumothorax. ADDITIONAL FINDINGS: No significant additional findings. Signer Name: Carlos Mcclellan MD Signed: 12/03/2020 2:22 AM Workstation Name: [id number]
[2020-12-03 02:41] LABS: Alanine Aminotransferase 16 units/L (7-56); Albumin 3.5 g/dL (3.9-5); Blood Urea Nitrogen 4 mg/dL (9-20); Hemolysis Index 6
[2020-12-03 02:42] LABS: BUN/Creatinine Ratio 10
--- NOTE | 2020-12-03 03:29 | Cat Scan Report ---
CT HEAD WITHOUT CONTRAST INDICATION: etoh intox, head trauma TECHNIQUE: All CT scans at this location are performed using CT dose reduction for ALARA by means of automated exposure control. COMPARISON: 05/31/2020 FINDINGS: BRAIN: No hemorrhage or mass effect are seen. No evidence of acute infarction is noted. Mild atrophic changes are noted. ORBITS: Normal as visualized. SOFT TISSUES OF HEAD: Normal. CALVARIUM: Normal. VISUALIZED PARANASAL SINUSES AND MASTOID AIR CELLS: Clear. ADDITIONAL FINDINGS: Nasal deformity is unchanged. IMPRESSION: No acute intracranial abnormality. CT CERVICAL SPINE WITHOUT CONTRAST INDICATION: etoh intox, head trauma TECHNIQUE: All CT scans at this location are performed using CT dose reduction for ALARA by means of automated exposure control. Axial CT images were obtained through the cervical spine. Sagittal and co carola reformatted images were produced. COMPARISON: None available. Cervical spine findings: No fractures are noted. Degenerative changes are seen with moderate disc spa ce narrowing at C3-4 where there is mild retrolisthesis. Mild disc space narrowing is noted at C6-7. Mild facet arthritic changes are seen. No definite disc herniation is noted. C1 to arthritic changes are seen. Additional findings: None. IMPRESSION: No significant acute findings. Signer Name: Carlos Mcclellan MD Signed: 12/03/2020 3:25 AM Workstation Name: [id number]
--- NOTE | 2020-12-03 04:05 | Emergency Department Report ---
ED General Adult HPI - General Chief complaint: Dizziness Stated complaint: CHESTPAIN/SOB PUI?: No Time Seen by Provider: 12/03/20 02:18 Source: patient, RN notes reviewed Mode of arrival: Ambulatory Limitations: Other (Alcohol intoxication) - History of Present Illness Initial comments: The patient was evaluated in the emergency department for symptoms described in the history of present illness. He/she was evaluated in the context of the global COVID-19 pandemic, which necessitated consideration that the patient might be at risk for infection with the virus that causes COVID-19. Institutional protocols and algorithms that pertain to the evaluation of patients at risk for COVID-19 are in a state of rapid change based on information released by regulatory bodies including the CDC and federal and state organizations. These policies and algorithms were followed during the patient's care in the emergency department. Please note that these policies, procedures and recommendations changed on a rapid basis. Patient is a 60-year-old gentleman who is well-known to myself in this institution. He has a history of GERD, reflux, alcoholism, and chronic chest pain. The patient presents to the ER today with his typical complaint of chronic chest pain, alcohol intoxication, and stating that he is hungry. He is not homicidal suicidal. He is also asking for a warm blanket. Location: chest Improves with: none Worsens with: none - Related Data Previous Rx's Medication Instructions Recorded Last Taken Type Aspirin 325 mg PO QDAY #30 tablet 10/23/19 Unknown Rx Metoprolol [Lopressor TAB] 25 mg PO BID #60 tablet 10/23/19 Unknown Rx Aspirin 325 mg PO QDAY #30 tablet 05/16/20 Unknown Rx Metoprolol [Lopressor TAB] 25 mg PO BID #60 tablet 05/16/20 Unknown Rx Pravastatin [Pravachol] 20 mg PO QHS #30 tablet 05/16/20 Unknown Rx Ondansetron [Zofran Odt] 4 mg PO Q8HR PRN #10 tab.rapdis 08/12/20 Unknown Rx Folic Acid [Folvite] 1 mg PO QDAY #30 tablet 08/14/20 Unknown Rx Multivitamin with Folic Acid [Cvs 400 mcg PO QDAY #30 tablet 08/14/20 Unknown Rx One Daily Essential Tablet] Thiamine [Vitamin B-1] 100 mg PO QDAY #30 tablet 08/14/20 Unknown Rx Ondansetron [Zofran ODT TAB] 4 mg PO Q8HR #14 tab.rapdis 09/10/20 Unknown Rx Pantoprazole [Protonix TAB] 40 mg PO QDAY #30 tablet 09/10/20 Unknown Rx Naproxen [Naprosyn] 500 mg PO BID #14 tablet 09/17/20 Unknown Rx Esomeprazole Magnesium [NexIUM] 40 mg PO QDAY #30 capsule. 11/23/20 Unknown Rx Allergies Allergy/AdvReac Type Severity Reaction Status Date / Time No Known Allergies Allergy Verified 09/17/20 07:29 ED Review of Systems ROS: Stated complaint: CHESTPAIN/SOB Other details as noted in HPI Constitutional: denies: fever Respiratory: denies: cough Cardiovascular: chest pain Gastrointestinal: denies: abdominal pain Psychiatric: denies: homicidal thoughts, suicidal thoughts ED Past Medical Hx - Past Medical History Hx Hypertension: Yes Hx CVA: Yes (left) Hx Heart Attack/AMI: Yes Hx Congestive Heart Failure: No Hx Diabetes: No Hx Asthma: No Hx COPD: No Hx HIV: No Additional medical history: chronic pain in back, neck and L knee, ETOH abuse. herniated disc - Surgical History Additional Surgical History: Left Knee. skin graft to right hand, left hip surgery - Social History Smoking Status: Never Smoker Substance Use Type: None - Medications Home Medications: Home Medications Medication Instructions Recorded Confirmed Last Taken Type Aspirin 325 mg PO QDAY #30 tablet 10/23/19 Unknown Rx Metoprolol [Lopressor TAB] 25 mg PO BID #60 tablet 10/23/19 Unknown Rx Aspirin 325 mg PO QDAY #30 tablet 05/16/20 Unknown Rx Metoprolol [Lopressor TAB] 25 mg PO BID #60 tablet 05/16/20 Unknown Rx Pravastatin [Pravachol] 20 mg PO QHS #30 tablet 05/16/20 Unknown Rx Ondansetron [Zofran Odt] 4 mg PO Q8HR PRN #10 tab.rapdis 08/12/20 Unknown Rx Folic Acid [Folvite] 1 mg PO QDAY #30 tablet 08/14/20 Unknown Rx Multivitamin with Folic Acid [Cvs 400 mcg PO QDAY #30 tablet 08/14/20 Unknown Rx One Daily Essential Tablet] Thiamine [Vitamin B-1] 100 mg PO QDAY #30 tablet 08/14/20 Unknown Rx Ondansetron [Zofran ODT TAB] 4 mg PO Q8HR #14 tab.rapdis 09/10/20 Unknown Rx Pantoprazole [Protonix TAB] 40 mg PO QDAY #30 tablet 09/10/20 Unknown Rx Naproxen [Naprosyn] 500 mg PO BID #14 tablet 09/17/20 Unknown Rx Esomeprazole Magnesium [NexIUM] 40 mg PO QDAY #30 capsule. 11/23/20 Unknown Rx ED Physical Exam - General Limitations: Other (Intoxication) General appearance: in no apparent distress, appears intoxicated - Head Head exam: Present: atraumatic, normocephalic - Eye Eye exam: Present: normal appearance, EOMI. Absent: nystagmus - ENT ENT exam: Present: normal exam, normal orophraynx, mucous membranes moist, normal external ear exam - Neck Neck exam: Present: normal inspection, full ROM. Absent: tenderness, meningismus - Respiratory Respiratory exam: Present: normal lung sounds bilaterally, decreased breath sounds. Absent: respiratory distress, wheezes, rales, rhonchi, stridor - Cardiovascular Cardiovascular Exam: Present: regular rate, normal rhythm, normal heart sounds. Absent: bradycardia, tachycardia, irregular rhythm, systolic murmur, diastolic murmur, rubs, gallop - GI/Abdominal GI/Abdominal exam: Present: soft. Absent: distended, tenderness, guarding, rebound, rigid, pulsatile mass - Rectal Rectal exam: Present: deferred - Extremities Exam Extremities exam: Present: normal inspection (Chronic venous stasis noted in the bilateral lower extremities), pedal edema (2+ edema in the bilateral lower extremities), other (2+ pulses noted in the bilateral upper and lower e xtremities. There is no palpable cord. negative Homans sign. Muscular compartments are soft. The pelvis is stable.). Absent: calf tenderness - Back Exam Back exam: Present: normal inspection, full ROM. Absent: tenderness, CVA tenderness (R), CVA tenderness (L), paraspinal tenderness, vertebral tenderness - Neurological Exam Neurological exam: Present: alert, other (No facial droop. Tongue midline. Extraocular movements intact bilaterally. Facial sensation intact to light touch in V1, V2, V3 distribution bilaterally. 5 and a 5 strength in 4 extremities. Sensation intact to light touch in 4 extremities.) - Psychiatric Psychiatric exam: Absent: homicidal ideation, suicidal ideation - Skin Skin exam: Present: warm, dry, intact, normal color. Absent: rash ED Course Vital Signs 12/03/20 12/03/20 01:00 04:17 Temperature 98.6 F 98.6 F Pulse Rate 110 H 109 H Respiratory 18 18 Rate Blood Pressure 99/69 103/59 O2 Sat by Pulse 82 L 99 Oximetry - Reevaluation(s) Reevaluation #1: 12/03/20 04:07 Differential diagnosis, including but not limited to: Alcohol intoxication, GERD, gastritis, hiatal hernia, closed head injury, cervical spine injury, dependent edema, malnutrition, coronary artery disease Assessment and plan: 60-year-old gentleman, who is intoxicated, presenting with chronic chest pain. CT scan of the brain and cervical spine were obtained, no traumatic findings noted. Laboratory studies and EKG appear to be at baseline. Chest x-ray is unremarkable. Patient is currently drinking coffee, walking around in the hallway, plugging his cell phone into a broke handler. We will repeat vital signs. Presuming vital signs normalized, patient will be discharged when clinically sober. The patient presentation today is consistent with his prior presentations. He is at low risk for major adverse cardiac event as per heart score. 12/03/20 05:15 Vital signs normalized. Patient sleeping in stretcher. He is clinically sober. He does not appear to have an emergent medical condition present at this time. ED Medical Decision Making - Lab Data Result diagrams: 12/03/20 01:53 12/03/20 01:53 Vital Signs 12/03/20 01:00 Temperature 98.6 F Pulse Rate 110 H Respiratory 18 Rate Blood Pressure 99/69 O2 Sat by Pulse 82 L Oximetry Lab Results 12/03/20 12/03/20 12/03/20 Range/Units 01:53 01:53 02:01 WBC 6.4 (4.5-11.0) K/mm3 RBC 4.09 (3.65-5.03) M/mm3 Hgb 11.8 (11.8-15.2) gm/dl Hct 35.2 L (35.5-45.6) % MCV 86 (84-94) fl MCH 29 (28-32) pg MCHC 34 (32-34) % RDW 16.3 H (13.2-15.2) % Plt Count 221 (140-440) K/mm3 Lymph % (Auto) 31.7 (13.4-35.0) % Chaves % (Auto) 13.3 H (0.0-7.3) % Eos % (Auto) 4.9 H (0.0-4.3) % Baso % (Auto) 0.3 (0.0-1.8) % Lymph # (Auto) 2.0 (1.2-5.4) K/mm3 Chaves # (Auto) 0.8 (0.0-0.8) K/mm3 Eos # (Auto) 0.3 (0.0-0.4) K/mm3 Baso # (Auto) 0.0 (0.0-0.1) K/mm3 Seg Neutrophils % 49.8 (40.0-70.0) % Seg Neutrophils # 3.2 (1.8-7.7) K/mm3 Sodium 134 L (137-145) mmol/L Potassium 3.6 (3.6-5.0) mmol/L Chloride 95.1 L (98-107) mmol/L Carbon Dioxide 23 (22-30) mmol/L Anion Gap 20 mmol/L BUN 4 L (9-20) mg/dL Creatinine 0.4 L (0.8-1.3) mg/dL Estimated GFR > 60 ml/min BUN/Creatinine Ratio 10 % Glucose 126 H (75-100) mg/dL Calcium 9.0 (8.4-10.2) mg/dL Magnesium 2.10 (1.7-2.3) mg/dL Total Bilirubin 0.50 (0.1-1.2) mg/dL AST 37 (5-40) units/L ALT 16 (7-56) units/L Alkaline Phosphatase 171 H (35-129) units/L Total Creatine Kinase 479 H (55-170) units/L Troponin T < 0.010 (0.00-0.029) ng/mL Total Protein 7.0 (6.3-8.2) g/dL Albumin 3.5 L (3.9-5) g/dL Albumin/Globulin Ratio 1.0 % Salicylates < 0.3 L (2.8-20.0) mg/dL Acetaminophen (10.0-30.0) ug/mL Plasma/Serum Alcohol (0-0.07) % 09/26/21 09/26/21 Range/Units 02:01 02:01 WBC (4.5-11.0) K/mm3 RBC (3.65-5.03) M/mm3 Hgb (11.8-15.2) gm/dl Hct (35.5-45.6) % MCV (84-94) fl MCH (28-32) pg MCHC (32-34) % RDW (13.2-15.2) % Plt Count (140-440) K/mm3 Lymph % (Auto) (13.4-35.0) % Chaves % (Auto) (0.0-7.3) % Eos % (Auto) (0.0-4.3) % Baso % (Auto) (0.0-1.8) % Lymph # (Auto) (1.2-5.4) K/mm3 Chaves # (Auto) (0.0-0.8) K/mm3 Eos # (Auto) (0.0-0.4) K/mm3 Baso # (Auto) (0.0-0.1) K/mm3 Seg Neutrophils % (40.0-70.0) % Seg Neutrophils # (1.8-7.7) K/mm3 Sodium (137-145) mmol/L Potassium (3.6-5.0) mmol/L Chloride (98-107) mmol/L Carbon Dioxide (22-30) mmol/L Anion Gap mmol/L BUN (9-20) mg/dL Creatinine (0.8-1.3) mg/dL Estimated GFR ml/min BUN/Creatinine Ratio % Glucose (75-100) mg/dL Calcium (8.4-10.2) mg/dL Magnesium (1.7-2.3) mg/dL Total Bilirubin (0.1-1.2) mg/dL AST (5-40) units/L ALT (7-56) units/L Alkaline Phosphatase (35-129) units/L Total Creatine Kinase (55-170) units/L Troponin T (0.00-0.029) ng/mL Total Protein (6.3-8.2) g/dL Albumin (3.9-5) g/dL Albumin/Globulin Ratio % Salicylates (2.8-20.0) mg/dL Acetaminophen 5.0 L (10.0-30.0) ug/mL Plasma/Serum Alcohol 0.19 H (0-0.07) % - EKG Data -: EKG Interpreted by Ca EKG shows normal: sinus rhythm Rate: normal - EKG Data Interpretation: unchanged when compared t (November 2020) 12/03/20 04:04 The EKG is interpreted at 03: 27 Sinus rhythm, rate 99 bpm. Normal axis, QTC prolonged. TN interval prolonged. Motion artifact. Poor R wave progression. Abnormal EKG. The EKG is not a STEMI - Radiology Data Radiology results: report reviewed, image reviewed CHEST 1 VIEW INDICATION / CLINICAL INFORMATION: dyspnea STUDY TIME: 206 COMPARISON: 11/28/2020 FINDINGS: SUPPORT DEVICES: None HEART / MEDIASTINUM: No significant abnormality. LUNGS / PLEURA: No significant pulmonary or pleural abnormality. No pneumothorax. ADDITIONAL FINDINGS: No significant additional findings. Signer Name: Carlos Mcclellan MD Signed: 12/03/2020 1:22 AM Workstation Name: [id number] HEAD WITHOUT CONTRAST INDICATION: etoh intox, head trauma TECHNIQUE: All CT scans at this location are performed using CT dose reduction for ALARA by means of automated exposure control. COMPARISON: 05/31/2020 FINDINGS: BRAIN: No hemorrhage or mass effect are seen. No evidence of acute infarction is noted. Mild atrophic changes are noted. ORBITS: Normal as visualized. SOFT TISSUES OF HEAD: Normal. CALVARIUM: Normal. VISUALIZED PARANASAL SINUSES AND MASTOID AIR CELLS: Clear. ADDITIONAL FINDINGS: Nasal deformity is unchanged. IMPRESSION: No acute intracranial abnormality. CT CERVICAL SPINE WITHOUT CONTRAST INDICATION: etoh intox, head trauma TECHNIQUE: All CT scans at this location are performed using CT dose reduction for ALARA by means of automated exposure control. Axial CT images were obtained through the cervical spine. Sagittal and coronal reformatted images were produced. COMPARISON: None available. Cervical spine findings: No fractures are noted. Degenerative changes are seen with moderate disc space narrowing at C3-4 where there is mild retrolisthesis. Mild disc space narrowing is noted at C6-7. Mild facet arthritic changes are seen. No definite disc herniation is noted. C1 to arthritic changes are seen. Additional findings: None. IMPRESSION: No significant acute findings. Signer Name: Carlos Mcclellan MD Signed: 12/03/2020 2:25 AM Workstation Name: [id number] Critical care attestation.: If time is entered above; I have spent that time in minutes in the direct care of this critically ill patient, excluding procedure time. ED Disposition Clinical Impression: Alcoholism, Homelessness, Frequent attender of accident and emergency department, Chest pain, ETOH abuse Disposition: HOME / SELF CARE / HOMELESS Is pt being admited?: No Does the pt Need Aspirin: No Condition: Good Instructions: Nonspecific Chest Pain, Adult Additional Instructions: Please continue current outpatient medications. Avoid consumption of Motrin, ibuprofen, Naprosyn, Aleve. Avoid consumption of alcohol. Take a multivitamin on a daily basis. Follow-up with a primary care doctor within the next 7 to 10 days. Return to the emergency room right away with new pain, worsened pain, migration of pain, projectile vomiting, change in mental status, confusion, inability to tolerate liquid feeds, homicidality, suicidality, or any new, worsened or different symptoms not present on initial emergency room evaluation. Referrals: [facility] [Provider Group] - 3-5 Days
[2020-12-03] MEDS ORDERED: PANTOPRAZOLE 40 MG TAB PO SCH (07:30)
[2020-12-03 08:40] VITALS: BP 113/60
[2020-12-03] MEDS ORDERED: NON-FORMULARY EACH (Esomeprazole Magnesium [Nexium] 40 MG Capsule.Dr) PO SCH (10:00)
[2020-12-03] MEDS ORDERED: FOLIC ACID 1 MG TAB PO SCH (10:00)
[2020-12-03] MEDS ORDERED: THIAMINE 100 MG TAB PO SCH (10:00)
[2020-12-03] MEDS ORDERED: MULTIVITAMINS ,THERAPEUTIC TAB PO SCH (10:00)
[2020-12-03] MEDS ORDERED: METOPROLOL TARTRATE 25 MG TAB PO SCH (10:00)
[2020-12-03] MEDS ORDERED: PRAVASTATIN 20 MG TAB PO SCH (22:00)
--- NOTE | 2020-12-04 10:44 | Electrocardiograph Report ---
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
== END 2020-12-03 08:40 | disposition home or self-care (01) ==
LOC: ED 23:54
DX: F10.20 Alcohol dependence, uncomplicated (principal); Z59.0 Homelessness; R07.9 Chest pain, unspecified; I10 Essential (primary) hypertension
CPT/HCPCS: 36415; 70450; 71045; 72125; 80053; 80320; 82550; 83735; 84484; 85025; 93005; 99284; G0480; Q0162

== ENCOUNTER 2020-12-16 22:45 | Emergency (ER) | payer MEDICAID ==
--- NOTE | 2020-12-17 00:11 | XRay Report ---
CHEST 2 VIEWS INDICATION / CLINICAL INFORMATION: Dyspnea. COMPARISON: Chest x-ray 12/03/2020 FINDINGS: SUPPORT DEVICES: None. HEART / MEDIASTINUM: No significant abnormality. LUNGS / PLEURA: No significant pulmonary or pleural abnormality. No pneumothorax. ADDITIONAL FINDINGS: No significant additional findings. IMPRESSION: 1. No acute findings. Signer Name: Inderjit Montero MD Signed: 12/17/2020 12:07 AM Workstation Name: [id number]
--- NOTE | 2020-12-17 00:20 | Emergency Department Report ---
ED General Adult HPI - General Chief complaint: Chest Pain Stated complaint: SHORTNESS OF BREATH Time Seen by Provider: 12/16/20 23:17 Source: patient Mode of arrival: Ambulatory Limitations: Physical Limitation - History of Present Illness Initial comments: Mr. Zhou Lemus is a 60 years old male, familiar to me and to this hospital. Patient with recurrent ER visits for similar complaint. Patient is a chronic alcohol abuse history of hypertension and left-sided CVA. Patient stated that he has history of coronary artery disease before. Patient presented to the emergency room complaining of chest pain, similar to what he has before with no change. Patient is homeless. Patient denied any fever or chills. Patient stated that his shortness of breath with his usual no change. Severity scale (0 -10): 9 - Related Data Previous Rx's Medication Instructions Recorded Last Taken Type Aspirin 325 mg PO QDAY #30 tablet 10/23/19 Unknown Rx Metoprolol [Lopressor TAB] 25 mg PO BID #60 tablet 10/23/19 Unknown Rx Aspirin 325 mg PO QDAY #30 tablet 05/16/20 Unknown Rx Metoprolol [Lopressor TAB] 25 mg PO BID #60 tablet 05/16/20 Unknown Rx Pravastatin [Pravachol] 20 mg PO QHS #30 tablet 05/16/20 Unknown Rx Ondansetron [Zofran Odt] 4 mg PO Q8HR PRN #10 tab.rapdis 08/12/20 Unknown Rx Folic Acid [Folvite] 1 mg PO QDAY #30 tablet 08/14/20 Unknown Rx Multivitamin with Folic Acid [Cvs 400 mcg PO QDAY #30 tablet 08/14/20 Unknown Rx One Daily Essential Tablet] Thiamine [Vitamin B-1] 100 mg PO QDAY #30 tablet 08/14/20 Unknown Rx Ondansetron [Zofran ODT TAB] 4 mg PO Q8HR #14 tab.rapdis 09/10/20 Unknown Rx Pantoprazole [Protonix TAB] 40 mg PO QDAY #30 tablet 09/10/20 Unknown Rx Naproxen [Naprosyn] 500 mg PO BID #14 tablet 09/17/20 Unknown Rx Esomeprazole Magnesium [NexIUM] 40 mg PO QDAY #30 capsule. 11/23/20 Unknown Rx Allergies Allergy/AdvReac Type Severity Reaction Status Date / Time No Known Allergies Allergy Verified 09/17/20 07:29 ED Review of Systems ROS: Stated complaint: SHORTNESS OF BREATH Other details as noted in HPI Comment: All other systems reviewed and negative Constitutional: denies: chills, fever Respiratory: shortness of breath Cardiovascular: chest pain Gastrointestinal: denies: abdominal pain, nausea, vomiting Musculoskeletal: denies: back pain Neurological: denies: headache, weakness, numbness, paresthesias ED Past Medical Hx - Past Medical History Hx Hypertension: Yes Hx CVA: Yes (left) Hx Heart Attack/AMI: Yes Hx Congestive Heart Failure: No Hx Diabetes: No Hx Asthma: No Hx COPD: No Hx HIV: No Additional medical history: chronic pain in back, neck and L knee, ETOH abuse. herniated disc - Surgical History Additional Surgical History: Left Knee. skin graft to right hand, left hip surgery - Social History Smoking Status: Former Smoker Substance Use Type: None - Medications Home Medications: Home Medications Medication Instructions Recorded Confirmed Last Taken Type Aspirin 325 mg PO QDAY #30 tablet 10/23/19 Unknown Rx Metoprolol [Lopressor TAB] 25 mg PO BID #60 tablet 10/23/19 Unknown Rx Aspirin 325 mg PO QDAY #30 tablet 05/16/20 Unknown Rx Metoprolol [Lopressor TAB] 25 mg PO BID #60 tablet 05/16/20 Unknown Rx Pravastatin [Pravachol] 20 mg PO QHS #30 tablet 05/16/20 Unknown Rx Ondansetron [Zofran Odt] 4 mg PO Q8HR PRN #10 tab.rapdis 08/12/20 Unknown Rx Folic Acid [Folvite] 1 mg PO QDAY #30 tablet 08/14/20 Unknown Rx Multivitamin with Folic Acid [Cvs 400 mcg PO QDAY #30 tablet 08/14/20 Unknown R x One Daily Essential Tablet] Thiamine [Vitamin B-1] 100 mg PO QDAY #30 tablet 08/14/20 Unknown Rx Ondansetron [Zofran ODT TAB] 4 mg PO Q8HR #14 tab.rapdis 09/10/20 Unknown Rx Pantoprazole [Protonix TAB] 40 mg PO QDAY #30 tablet 09/10/20 Unknown Rx Naproxen [Naprosyn] 500 mg PO BID #14 tablet 09/17/20 Unknown Rx Esomeprazole Magnesium [NexIUM] 40 mg PO QDAY #30 11/23/20 Unknown Rx ED Physical Exam - General Limitations: Physical Limitation General appearance: alert, in no apparent distress - Head Head exam: Present: atraumatic, normocephalic, normal inspection - Eye Eye exam: Present: normal appearance - ENT ENT exam: Present: normal exam, normal orophraynx, mucous membranes moist - Neck Neck exam: Present: normal inspection, full ROM. Absent: tenderness, meningismus - Respiratory Respiratory exam: Present: normal lung sounds bilaterally - Cardiovascular Cardiovascular Exam: Present: regular rate, normal rhythm, normal heart sounds - GI/Abdominal GI/Abdominal exam: Present: soft, normal bowel sounds. Absent: distended, tenderness, guarding, rebound, rigid, organomegaly, mass, bruit, pulsatile mass, hernia - Extremities Exam Extremities exam: Present: normal inspection, full ROM, normal capillary refill. Absent: tenderness - Back Exam Back exam: Present: normal inspection, full ROM. Absent: CVA tenderness (R), CVA tenderness (L) - Neurological Exam Neurological exam: Present: alert, oriented X3, CN II-XII intact - Psychiatric Psychiatric exam: Present: normal mood. Absent: homicidal ideation, suicidal ideation - Skin Skin exam: Present: warm, intact, normal color ED Course Vital Signs 12/16/20 12/16/20 22:46 22:53 Pulse Rate 104 H 102 H Respiratory 22 22 Rate Blood Pressure 92/64 [Right] O2 Sat by Pulse 96 96 Oximetry ED Medical Decision Making - Lab Data Result diagrams: 12/17/20 00:18 12/17/20 00:18 - EKG Data -: EKG Interpreted by Mi EKG shows normal: sinus rhythm Rate: normal - EKG Data Interpretation: no acute changes - Radiology Data Radiology results: report reviewed - Medical Decision Making Mr. Zhou Lemus is a 60 years old male, familiar to [place] and to this hospital. Patient with recurrent ER visits for similar complaint. Patient is a chronic alcohol abuse history of hypertension and left-sided CVA. Patient stated that he has history of coronary artery disease before. Patient presented to the emergency room complaining of chest pain, similar to what he has before with no change. Patient is homeless. Patient denied any fever or chills. Patient stated that his shortness of breath with his usual no change. EKG is unremarkable. Patient remained stable in the ER with a stable vital sign. Chest x-ray is negative for acute finding. Labs reviewed and is unremarkable including a negative troponin. Patient advised to follow-up with his primary doctor in the next 2 to 3 days and to return to the ER if he develop any new symptoms. Critical care attestation.: If time is entered above; I have spent that time in minutes in the direct care of this critically ill patient, excluding procedure time. ED Disposition Clinical Impression: Shortness of breath Disposition: HOME / SELF CARE / HOMELESS Is pt being admited?: No Condition: Stable Instructions: Shortness of Breath, Adult, [id number] Referrals: PRIMARY CARE, [Referring] - 3-5 Days
[2020-12-17 00:46] LABS: Basophils % (Auto) 0.9 % (0.0-1.8); Eosinophils # (Auto) 0.2 K/mm3 (0.0-0.4); Hematocrit 35.5 % (35.5-45.6); Hemoglobin 11.8 gm/dl (11.8-15.2); Lymphocytes # (Auto) 1.6 K/mm3 (1.2-5.4); Lymphocytes % (Auto) 35.4 % (13.4-35.0); Mean Corpuscular HGB Conc 33 % (32-34); Mean Corpuscular Volume 84 fl (84-94); Monocytes # (Auto) 0.4 K/mm3 (0.0-0.8); Monocytes % (Auto) 8.9 % (0.0-7.3); Platelet Count 423 K/mm3 (140-440); Red Blood Count 4.26 M/mm3 (3.65-5.03); Red Cell Distribution Width 16.2 % (13.2-15.2)
[2020-12-17 01:05] LABS: Blood Urea Nitrogen 3 mg/dL (9-20); Calcium 8.5 mg/dL (8.4-10.2); Hemolysis Index 8
[2020-12-17 01:16] LABS: BUN/Creatinine Ratio 6
[2020-12-17 04:15] VITALS: BP 104/68
--- NOTE | 2020-12-18 11:04 | Electrocardiograph Report ---
[facility] Test Date: 2020-12-17 Test Time: 00:08:51 Pat Name: REBECCA ELIZABETH Department: Room: Gender: M [employer] Wire Loom: [id number] : 1960 Requested By: MAGALYS JEFFERSON Order Number: [id number] Reading MD: Sanford Betancourt Measurements Intervals [place] Rate: 91 P: 119 [place]: 51 QRS: 46 QRSD: 87 T: 26 QT: 403 QTc: 498 Interpretive Statements Sinus rhythm baseline artifact Compared to ECG 12/03/2020 03:27:19 Myocardial infarct finding no longer present Electronically Signed On 12-18-2020 11:04:23 EDT by Sanford Betancourt
== END 2020-12-17 04:43 | disposition home or self-care (01) ==
LOC: ED 22:45
DX: R06.02 Shortness of breath (principal); I10 Essential (primary) hypertension; I63.9 Cerebral infarction, unspecified; G89.29 Other chronic pain; M54.9 Dorsalgia, unspecified; M54.2 Cervicalgia; M25.562 Pain in left knee; Z98.890 Other specified postprocedural states; Z87.891 Personal history of nicotine dependence
CPT/HCPCS: 36415; 71046; 80048; 83880; 84484; 85025; 93005; 99284

== ENCOUNTER 2020-12-23 00:29 | Emergency (ER) | payer MEDICAID ==
[2020-12-23 07:11] VITALS: BP 130/89
[2020-12-23] MEDS ORDERED: ONDANSETRON 4 MG ODT TAB PO ONE (07:51)
[2020-12-23] MEDS ORDERED: IBUPROFEN 800 MG TAB PO ONE (07:51)
[2020-12-23] MEDS ORDERED: IPRATROPIUM/ALBUTEROL SULFATE 3 ML AMPUL.NEB IH ONE (07:52)
--- NOTE | 2020-12-23 07:58 | Emergency Department Report ---
HPI - General Chief Complaint: Extremity Problem,Nontraumatic Time Seen by Provider: 12/23/20 07:50 - HPI HPI: This is a 60-year-old -Polish male, who is well-known to both myself in this department, who presents to the emergency department this morning with a complaint of a 2-day history of nausea with episodes of vomiting, a mixed dry and productive cough, and some left knee pain. Patient says that the left knee pain is "my gout", and the patient denies any swelling, skin color changes, recent trauma or injury. The patient was seen here 6 days ago for the complaints of chest pain and shortness of breath and had a negative work-up at t [facility] time. He has a past medical history of chronic alcohol abuse/dependence, previous CVA, GERD. He has not taken anything for his symptoms prior to presentation. ED Past Medical Hx - Past Medical History Previous Medical History?: Yes Hx Hypertension: Yes Hx CVA: Yes (left) Hx Heart Attack/AMI: Yes Hx Congestive Heart Failure: No Hx Diabetes: No Hx Asthma: No Hx COPD: No Hx HIV: No Additional medical history: chronic pain in back, neck and L knee, ETOH abuse. herniated disc - Surgical History Past Surgical History?: Yes Hx Appendectomy: Yes Additional Surgical History: Left Knee. skin graft to right hand, left hip surgery - Social History Smoking Status: Former Smoker Substance Use Type: None - Medications Home Medications: Home Medications Medication Instructions Recorded Confirmed Last Taken Type Aspirin 325 mg PO QDAY #30 tablet 10/23/19 Unknown Rx Metoprolol [Lopressor TAB] 25 mg PO BID #60 tablet 10/23/19 Unknown Rx Aspirin 325 mg PO QDAY #30 tablet 05/16/20 Unknown Rx Metoprolol [Lopressor TAB] 25 mg PO BID #60 tablet 05/16/20 Unknown Rx Pravastatin [Pravachol] 20 mg PO QHS #30 tablet 05/16/20 Unknown Rx Folic Acid [Folvite] 1 mg PO QDAY #30 tablet 08/14/20 Unknown Rx Multivitamin with Folic Acid [Cvs 400 mcg PO QDAY #30 tablet 08/14/20 Unknown Rx One Daily Essential Tablet] Thiamine [Vitamin B-1] 100 mg PO QDAY #30 tablet 08/14/20 Unknown Rx Ondansetron [Zofran ODT TAB] 4 mg PO Q8HR #14 tab.rapdis 09/10/20 Unknown Rx Pantoprazole [Protonix TAB] 40 mg PO QDAY #30 tablet 09/10/20 Unknown Rx Naproxen [Naprosyn] 500 mg PO BID #14 tablet 09/17/20 Unknown Rx Esomeprazole Magnesium [NexIUM] 40 mg PO QDAY #30 capsule. 11/23/20 Unknown Rx Naproxen [Naprosyn] 500 mg PO BID #14 tablet 12/17/20 Unknown Rx Albuterol Mdi (or & Nicu Only) 2 puff IH QID PRN #8.5 gram 12/23/20 Unknown Rx [ProAir HFA Inhaler] Ondansetron [Zofran ODT TAB] 4 mg PO Q8HR PRN #10 tab.rapdis 12/23/20 Unknown Rx ED Review of Systems ROS: Stated complaint: CHEST WATT/GOUT Other details as noted in HPI Comment: All other systems reviewed and negative Constitutional: denies: chills, fever Eyes: denies: eye pain, vision change ENT: denies: ear pain, throat pain Respiratory: cough. denies: shortness of breath Cardiovascular: denies: chest pain, edema Gastrointestinal: nausea, vomiting. denies: abdominal pain Genitourinary: denies: dysuria, discharge Musculoskeletal: arthralgia. denies: joint swelling Skin: denies: rash, lesions Neurological: denies: headache, numbness, paresthesias Physical Exam - Physical Exam Vital Signs: Vital Signs 12/23/20 07:07 Temperature 97.6 F Pulse Rate 104 H Respiratory 16 Rate Blood Pressure 130/89 [Right] O2 Sat by Pulse 100 Oximetry Physical Exam: GENERAL: The patient is well-developed well-nourished. HENT: Normocephalic. Atraumatic. Patient has moist mucous membranes. EYES: Extraocular motions are intact. NECK: Supple. Trachea is midline. CHEST/LUNGS: Very mild expiratory wheezing. No tachypnea or accessory muscle use. There is no respiratory distress noted. HEART/CARDIOVASCULAR: Regular. There is no tachycardia. There is no murmur. ABDOMEN: Abdomen is soft, nontender. Patient has normal bowel sounds. There is no abdominal distention. SKIN: Skin is warm and dry. NEURO: The patient is awake, alert, and oriented. The patient is cooperative. The patient has no focal neurologic deficits. Normal speech. MUSCULOSKELETAL: There is mild left anterior knee tenderness to palpation. Negative anterior and posterior drawer test, and no laxity with a valgus varus stress. There is no limitation range of motion. ED Course Vital Signs 12/23/20 07:07 Temperature 97.6 F Pulse Rate 104 H Respiratory 16 Rate Blood Pressure 130/89 [Right] O2 Sat by Pulse 100 Oximetry ED Medical Decision Making - Radiology Data Radiology results: image reviewed interpreted by me: Chest x-ray does not show any acute process. There are no pleural effusions, obvious pneumonia and there is no pneumothorax. - Medical Decision Making This patient presents to the emergency department with a complaint of some nausea, shortness of breath and left knee pain. On examination the patient does not appear in any respiratory or acute distress. He has very mild expiratory wheezing without tachypnea or conversational dyspnea. Heart sounds are normal to auscultation. The left knee is slightly tender to palpation, but there is no laxity with valgus or varus stress, negative drawer test, there is no swelling, erythema, warmth. The patient tells me that it is gout, however he does not appear to have any history of gout and it is more consistent with osteoarthritis. The patient was seen ambulatory, at his baseline using his walker, without any limp. There is no recent trauma or injury and I did not feel that imaging was necessary at this time. The patient was given a DuoNeb breathing treatment due to the mild expiratory wheezing and was given 1 dose of oral Decadron. Upon evaluation he says he is feeling greatly improved. There has been no vomiting while in the emergency department and the patient is able to pass an oral challenge. Chest x-ray does not show any pneumonia, pleural effusions, pneumothorax, widened mediastinum, or any other acute process. Vital signs reassuring throughout his ED course including being afebrile. For all these reasons patient appears safe for discharge home at this time. He has been instructed to follow-up with primary care and has been given an outpatient referral for an orthopedist. Critical Care Time: No Critical care attestation.: If time is entered above; I have spent that time in minutes in the direct care of this critically ill patient, excluding procedure time. ED Disposition Clinical Impression: Bronchospasm, Nausea Left knee pain Qualifiers: Chronicity: unspecified Qualified Code(s): M25.562 - Pain in left knee Disposition: 01 HOME / SELF CARE / HOMELESS Is pt being admited?: No Condition: Stable Additional Instructions: Please follow-up with a primary care physician in the next few days. I have given you a referral for a local primary care physician, Dr. Shah, and a primary care clinic, [facility]. I have given you a referral for a local orthopedist, Dr. Roland, to follow-up regarding your knee pain. Return to the emergency department with any worsening of your symptoms, new or concerning symptoms not addressed during this current emergency department visit, or with any acute distress. Prescriptions: Albuterol Mdi (or & Nicu Only) [ProAir HFA Inhaler] 2 puff IH QID PRN #8.5 gram PRN Reason: Shortness Of Breath Ondansetron [Zofran ODT TAB] 4 mg PO Q8HR PRN #10 tab.rapdis PRN Reason: nausea/vomiting Referrals: PRIMARY CAREMD [Primary Care Provider] - 2-3 Days MATHEW SHAH MD [Staff Physician] - 2-3 Days MYRON ROLAND MD [Staff Physician] - 2-3 Days [facility] [Provider Group] - 2-3 Days Time of Disposition: 09:28
--- NOTE | 2020-12-23 08:47 | XRay Report ---
CHEST 2 VIEWS INDICATION / CLINICAL INFORMATION: cough. COMPARISON: 12/16/2020 FINDINGS: SUPPORT DEVICES: None. HEART / MEDIASTINUM: No significant abnormality. LUNGS / PLEURA: No significant pulmonary or pleural abnormality. No pneumothorax. ADDITIONAL FINDINGS: No significant additional findings. IMPRESSION: 1. No significant change. No acute findings. Signer Name: Thee Wilkins MD Signed: 12/23/2020 8:43 AM Workstation Name: [id number]
[2020-12-23] MEDS ORDERED: DEXAMETHASONE 4 MG TAB PO ONE (09:28)
== END 2020-12-23 10:25 | disposition home or self-care (01) ==
LOC: ED 00:29
DX: J98.01 Acute bronchospasm (principal); R11.2 Nausea with vomiting, unspecified; G89.29 Other chronic pain; M25.562 Pain in left knee; I10 Essential (primary) hypertension; Z86.73 Personal history of transient ischemic attack (TIA), and cerebral infarction without residual deficits; M54.9 Dorsalgia, unspecified; M54.2 Cervicalgia; Z90.89 Acquired absence of other organs; Z98.890 Other specified postprocedural states; Z87.891 Personal history of nicotine dependence
CPT/HCPCS: 71046; 94640; 99283; J8540; Q0162

== ENCOUNTER 2021-01-25 22:20 | Emergency (ER) | payer MEDICAID ==
[2021-01-25 23:36] LABS: Hematocrit 36.5 % (35.5-45.6); Hemoglobin 11.6 gm/dl (11.8-15.2); Mean Corpuscular HGB Conc 32 % (32-34); Mean Corpuscular Volume 82 fl (84-94); Platelet Count 244 K/mm3 (140-440); Red Blood Count 4.45 M/mm3 (3.65-5.03); Red Cell Distribution Width 18.2 % (13.2-15.2)
[2021-01-25 23:44] LABS: INR 0.95 (0.87-1.13)
--- NOTE | 2021-01-25 23:51 | Emergency Department Report ---
ED Shortness of Breath HPI - General Chief Complaint: Dyspnea/Respdistress Stated Complaint: SOB Time Seen by Provider: 01/25/21 23:02 Source: patient, old records reviewed (Cardiac cath 10/2019 reviewed) Mode of arrival: Ambulatory Limitations: No Limitations - History of Present Illness Initial Comments: 60-year-old male with a past medical history of CVA with residual left-sided weakness, chronic back pain secondary to pain this, and alcohol abuse with frequent ER visit presents to the hospital complaints of shortness of breath for 1 to 2 weeks. No aggravating alleviating factors reported. Patient states he coughs up a lot of phlegm at night. Denies fever. Patient is anterior and left-sided chest wall pain worse to palpation. Patient uses a walker to help assist with ambulation. Patient does not appear to be in any distress. Denies history of lung disease - Related Data Previous Rx's Medication Instructions Recorded Last Taken Type Aspirin 325 mg PO QDAY #30 tablet 10/23/19 Unknown Rx Metoprolol [Lopressor TAB] 25 mg PO BID #60 tablet 10/23/19 Unknown Rx Aspirin 325 mg PO QDAY #30 tablet 05/16/20 Unknown Rx Metoprolol [Lopressor TAB] 25 mg PO BID #60 tablet 05/16/20 Unknown Rx Pravastatin [Pravachol] 20 mg PO QHS #30 tablet 05/16/20 Unknown Rx Folic Acid [Folvite] 1 mg PO QDAY #30 tablet 08/14/20 Unknown Rx Multivitamin with Folic Acid [Cvs 400 mcg PO QDAY #30 tablet 08/14/20 Unknown Rx One Daily Essential Tablet] Thiamine [Vitamin B-1] 100 mg PO QDAY #30 tablet 08/14/20 Unknown Rx Ondansetron [Zofran ODT TAB] 4 mg PO Q8HR #14 tab.blake 09/10/20 Unknown Rx Pantoprazole [Protonix TAB] 40 mg PO QDAY #30 tablet 09/10/20 Unknown Rx Naproxen [Naprosyn] 500 mg PO BID #14 tablet 09/17/20 Unknown Rx Esomeprazole Magnesium [NexIUM] 40 mg PO QDAY #30 capsule. 11/23/20 Unknown Rx Naproxen [Naprosyn] 500 mg PO BID #14 tablet 12/17/20 Unknown Rx Ondansetron [Zofran ODT TAB] 4 mg PO Q8HR PRN #10 tab.rapdis 12/23/20 Unknown Rx Albuterol Mdi (or & Nicu Only) 2 puff IH QID PRN #8.5 gram 01/26/21 Unknown Rx [ProAir HFA Inhaler] Allergies Allergy/AdvReac Type Severity Reaction Status Date / Time No Known Allergies Allergy Verified 09/17/20 07:29 ED Review of Systems ROS: Stated complaint: SOB Other details as noted in HPI Comment: All other systems reviewed and negative ED Past Medical Hx - Past Medical History Previous Medical History?: Yes Hx Hypertension: Yes Hx CVA: Yes (left) Hx Heart Attack/AMI: Yes Hx Congestive Heart Failure: No Hx Diabetes: No Hx Asthma: No Hx COPD: No Hx HIV: No Additional medical history: chronic pain in back, neck and L knee, ETOH abuse. herniated disc - Surgical History Past Surgical History?: Yes Hx Appendectomy: Yes Additional Surgical History: Left Knee. skin graft to right hand, left hip surgery - Social History Smoking Status: Former Smoker Substance Use Type: None - Medications Home Medications: Home Medications Medication Instructions Recorded Confirmed Last Taken Type Aspirin 325 mg PO QDAY #30 tablet 10/23/19 Unknown Rx Metoprolol [Lopressor TAB] 25 mg PO BID #60 tablet 10/23/19 Unknown Rx Aspirin 325 mg PO QDAY #30 tablet 05/16/20 Unknown Rx Metoprolol [Lopressor TAB] 25 mg PO BID #60 tablet 05/16/20 Unknown Rx Pravastatin [Pravachol] 20 mg PO QHS #30 tablet 05/16/20 Unknown Rx Folic Acid [Folvite] 1 mg PO QDAY #30 tablet 08/14/20 Unknown Rx Multivitamin with Folic Acid [Cvs 400 mcg PO QDAY #30 tablet 08/14/20 Unknown Rx One Daily Essential Tablet] Thiamine [Vitamin B-1] 100 mg PO QDAY #30 tablet 08/14/20 Unknown Rx Ondansetron [Zofran ODT TAB] 4 mg PO Q8HR #14 tab.rapdis 09/10/20 Unknown Rx Pantoprazole [Protonix TAB] 40 mg PO QDAY #30 tablet 09/10/20 Unknown Rx Naproxen [Naprosyn] 500 mg PO BID #14 tablet 09/17/20 Unknown Rx Esomeprazole Magnesium [NexIUM] 40 mg PO QDAY #30 capsule. 11/23/20 Unknown Rx Naproxen [Naprosyn] 500 mg PO BID #14 tablet 12/17/20 Unknown Rx Ondansetron [Zofran ODT TAB] 4 mg PO Q8HR PRN #10 tab.rapdis 12/23/20 Unknown Rx Albuterol Mdi (or & Nicu Only) 2 puff IH QID PRN #8.5 gram 01/26/21 Unknown Rx [ProAir HFA Inhaler] ED Physical Exam - General Limitations: No Limitations - Other Other exam information: General: No acute distress Head: Atraumatic Eyes: normal appearance ENT: Moist mucous membranes Neck: Normal appearance, no midline tenderness Chest: Clear to auscultation bilaterally, no tachypnea accessory muscle use reproducible anterior left-sided chest wall tenderness CV: Regular rate and rhythm Abdomen: Soft, normal bowel sounds, nontender, nondistended, no rebound or guarding Back: Normal inspection Extremity: Normal inspection, full range of motion Neuro: Alert O x 3, no facial asymmetry, speech clear, equal handgrip, mild left leg weakness Psych: Appropriate behavior Skin: No rash ED Course Vital Signs 01/25/21 01/26/21 22:23 01:52 Temperature 97.6 F Pulse Rate 101 H 93 H Respiratory 18 16 Rate Blood Pressure 102/66 Blood Pressure 90/57 [Left] O2 Sat by Pulse 99 97 Oximetry ED Medical Decision Making - Lab Data Result diagrams: 01/25/21 23:14 01/25/21 23:14 Lab Results 01/25/21 01/25/21 01/25/21 Range/Units 23:14 23:14 23:14 WBC 3.9 L (4.5-11.0) K/mm3 RBC 4.45 (3.65-5.03) M/mm3 Hgb 11.6 L (11.8-15.2) gm/dl Hct 36.5 (35.5-45.6) % MCV 82 L (84-94) fl MCH 26 L (28-32) pg MCHC 32 (32-34) % RDW 18.2 H (13.2-15.2) % Plt Count 244 (140-440) K/mm3 Lymph % (Auto) Level Vial Sealer Seg Neutrophils % Level Vial Sealer PT 13.7 (12.2-14.9) Sec. INR 0.95 (0.87-1.13) Sodium 140 (137-145) mmol/L Potassium 3.6 (3.6-5.0) mmol/L Chloride 105.9 (98-107) mmol/L Carbon Dioxide 20 L (22-30) mmol/L Anion Gap 18 mmol/L BUN 6 L (9-20) mg/dL Creatinine 0.5 L (0.8-1.3) mg/dL Estimated GFR > 60 ml/min BUN/Creatinine Ratio 12 % Glucose 102 H (75-100) mg/dL Calcium 8.8 (8.4-10.2) mg/dL Total Bilirubin 0.20 (0.1-1.2) mg/dL AST 20 (5-40) units/L ALT 10 (7-56) units/L Alkaline Phosphatase 109 (35-129) units/L Troponin T < 0.010 (0.00-0.029) ng/mL NT-Pro-B Natriuret Pep (0-900) pg/mL Total Protein 7.2 (6.3-8.2) g/dL Albumin 3.9 (3.9-5) g/dL Albumin/Globulin Ratio 1.2 % Plasma/Serum Alcohol (0-0.07) % 01/25/21 01/25/21 Range/Units 23:14 23:14 WBC (4.5-11.0) K/mm3 RBC (3.65-5.03) M/mm3 Hgb (11.8-15.2) gm/dl Hct (35.5-45.6) % MCV (84-94) fl MCH (28-32) pg MCHC (32-34) % RDW (13.2-15.2) % Plt Count (140-440) K/mm3 Lymph % (Auto) Seg Neutrophils % PT (12.2-14.9) Sec. INR (0.87-1.13) Sodium (137-145) mmol/L Potassium (3.6-5.0) mmol/L Chloride (98-107) mmol/L Carbon Dioxide (22-30) mmol/L Anion Gap mmol/L BUN (9-20) mg/dL Creatinine (0.8-1.3) mg/dL Estimated GFR ml/min BUN/Creatinine Ratio % Glucose (75-100) mg/dL Calcium (8.4-10.2) mg/dL Total Bilirubin (0.1-1.2) mg/dL AST (5-40) units/L ALT (7-56) units/L Alkaline Phosphatase (35-129) units/L Troponin T (0.00-0.029) ng/mL NT-Pro-B Natriuret Pep 111.6 (0-900) pg/mL Total Protein (6.3-8.2) g/dL Albumin (3.9-5) g/dL Albumin/Globulin Ratio % Plasma/Serum Alcohol 0.29 H (0-0.07) % - EKG Data -: EKG Interpreted by Me (Elle) EKG shows normal: sinus rhythm, intervals (Prolonged [place]), QRS complexes (Normal QRS duration), ST-T waves (No STEMI) Rate: tachycardia (101) - Radiology Data Radiology results: report reviewed CHEST 2 VIEWS INDICATION: Dyspnea. COMPARISON: 12/23/2020 FINDINGS: Support devices: None. Heart: Within normal limits. Lungs/Pleura: No acute air space or interstitial disease. No significant pleural effusion. Chronic wedging is seen at the upper lumbar spine. IMPRESSION: No acute findings. - Medical Decision Making Patient endorses shortness of breath for 1 to 2 weeks with no signs of respiratory distress, hypoxia, tachypnea, or wheeze. Patient has reproducible anterior chest wall tenderness. Patient once again presents acutely intoxicated. EKG unchanged from previous. Troponin negative. patient had a cardiac cath done in October 2019. Patient appears to be is a former smoker and has been prescribed albuterol in the past. Patient will be prescribed an inhaler and follow-up advised with PMD and pulmonology for further work-up and evaluation Critical Care Time: No Critical care attestation.: If time is entered above; I have spent that time in minutes in the direct care of this critically ill patient, excluding procedure time. ED Disposition Clinical Impression: Alcoholism, Chronic dyspnea, Chest wall pain Disposition: HOME / SELF CARE / HOMELESS Is pt being admited?: No Does the pt Need Aspirin: No Condition: Stable Instructions: Nonspecific Chest Pain, Adult, Shortness of Breath, Adult, [id number], Chest Wall Pain Additional Instructions: Take the medication as prescribed. Follow-up with your doctor or doctor/clinic provided. Return if symptoms worsen as indicated by your discharge i nstructions. Prescriptions: Albuterol Mdi (or & Nicu Only) [ProAir HFA Inhaler] 2 puff IH QID PRN #8.5 gram PRN Reason: Shortness Of Breath Referrals: NOEL MOSER MD [Staff Physician] - 3-5 Days Time of Disposition: 02:28
[2021-01-26 00:02] LABS: Alanine Aminotransferase 10 units/L (7-56); Albumin 3.9 g/dL (3.9-5); Blood Urea Nitrogen 6 mg/dL (9-20); Calcium 8.8 mg/dL (8.4-10.2); Hemolysis Index 4
[2021-01-26 00:04] LABS: BUN/Creatinine Ratio 12
--- NOTE | 2021-01-26 00:31 | XRay Report ---
CHEST 2 VIEWS INDICATION: Dyspnea. COMPARISON: 12/23/2020 FINDINGS: Support devices: None. Heart: Within normal limits. Lungs/Pleura: No acute air space or interstitial disease. No significant pleural effusion. Chronic wedging is seen at the upper lumbar spine. IMPRESSION: No acute findings. Signer Name: Vick Em MD Signed: 01/26/2021 12:26 AM Workstation Name: [email or web address]
[2021-01-26 01:54] VITALS: BP 90/57
[2021-01-26 01:57] LABS: Total Cells Counted 100
[2021-01-26 01:58] LABS: Platelet Estimate Consistent w Auto; RBC Morphology Normal
--- NOTE | 2021-01-26 09:04 | Electrocardiograph Report ---
[facility] Test Date: 2021-01-26 Test Time: 00:16:11 Pat Name: REBECCA ELIZABETH Department: Room: Gender: M [employer]: : 1960 Requested By: EDSON TERAN Order Number: [id number] Reading MD: Crispin Johnson Measurements Intervals [place] Rate: 101 P: 76 DC: 208 QRS: 54 QRSD: 70 T: 72 QT: 365 QTc: 474 Interpretive Statements Sinus tachycardia Multiple ventricular premature complexes Borderline prolonged DC interval Probable anteroseptal infarct, old Compared to ECG 12/17/2020 00:08:51 Ventricular premature complex(es) now present Myocardial infarct finding now present Sinus rhythm no longer present Electronically Signed On 01-26-2021 9:04:11 EST by Crispin Johnson
== END 2021-01-26 03:06 | disposition home or self-care (01) ==
LOC: ED 22:20
DX: F10.20 Alcohol dependence, uncomplicated (principal); Y90.9 Presence of alcohol in blood, level not specified; R06.00 Dyspnea, unspecified; R07.89 Other chest pain; I10 Essential (primary) hypertension; Z86.79 Personal history of other diseases of the circulatory system; Z90.89 Acquired absence of other organs; Z87.891 Personal history of nicotine dependence
CPT/HCPCS: 36415; 71046; 80053; 80320; 83880; 84484; 85007; 85025; 85610; 93005; 99283; G0480

== ENCOUNTER 2021-05-23 22:40 | Emergency (ER) | payer MEDICAID ==
--- NOTE | 2021-05-24 04:49 | XRay Report ---
CHEST 2 VIEWS INDICATION: CHEST PAIN. COMPARISON: 01/25/2021 FINDINGS: Support devices: None. Heart: Within normal limits. Lungs/Pleura: Mild elevation left hemidiaphragm. Mild opacity left base. Mild chronic interstitial th ickening. No significant pleural effusion. IMPRESSION: 1. Mild chronic interstitial thickening. 2. Mild opacity left base is favored to be atelectasis. Signer Name: Vick Em MD Signed: 05/24/2021 4:44 AM Workstation Name: [id number]
[2021-05-24 04:57] LABS: Basophils # (Auto) 0.1 K/mm3 (0.0-0.1); Basophils % (Auto) 1.5 % (0.0-1.8); Eosinophils # (Auto) 0.2 K/mm3 (0.0-0.4); Eosinophils % (Auto) 4.5 % (0.0-4.3); Hematocrit 40.2 % (35.5-45.6); Hemoglobin 12.9 gm/dl (11.8-15.2); Lymphocytes # (Auto) 1.9 K/mm3 (1.2-5.4); Lymphocytes % (Auto) 45.1 % (13.4-35.0); Mean Corpuscular HGB Conc 32 % (32-34); Mean Corpuscular Volume 81 fl (84-94); Monocytes # (Auto) 0.4 K/mm3 (0.0-0.8); Monocytes % (Auto) 10.1 % (0.0-7.3); Platelet Count 289 K/mm3 (140-440); Red Blood Count 4.99 M/mm3 (3.65-5.03); Red Cell Distribution Width 18.3 % (13.2-15.2)
[2021-05-24 05:02] LABS: Alanine Aminotransferase 22 units/L (7-56); Albumin 4.4 g/dL (3.9-5); Blood Urea Nitrogen 10 mg/dL (9-20); Hemolysis Index 14
[2021-05-24 05:05] LABS: BUN/Creatinine Ratio 20
--- NOTE | 2021-05-24 07:18 | Emergency Department Report ---
ED General Adult HPI - General Chief complaint: Dyspnea/Respdistress Stated complaint: SOB Time Seen by Provider: 05/24/21 06:39 Source: patient Mode of arrival: Ambulatory Limitations: Physical Limitation - History of Present Illness Initial comments: This is a 60-year-old male who presents emergency department with chief complaint of cough, congestion, pain in his chest when he moves or coughs that has been ongoing for the past few days. He has a past medical history of CVA, chronic back pain and alcoholism. Per chart review he is a frequent visitor of the emergency department. He denies any sick contacts. Reports he has been having some white phlegm, when he coughs. He denies any pain in his chest currently. Denies any associated fever, chills, night sweats, headache, dizziness, or vision, nausea,, diarrhea, weakness or any other associated symptoms. - Related Data Previous Rx's Medication Instructions Recorded Last Taken Type Aspirin 325 mg PO QDAY #30 tablet 10/23/19 Unknown Rx Metoprolol [Lopressor TAB] 25 mg PO BID #60 tablet 10/23/19 Unknown Rx Aspirin 325 mg PO QDAY #30 tablet 05/16/20 Unknown Rx Metoprolol [Lopressor TAB] 25 mg PO BID #60 tablet 05/16/20 Unknown Rx Pravastatin [Pravachol] 20 mg PO QHS #30 tablet 05/16/20 Unknown Rx Folic Acid [Folvite] 1 mg PO QDAY #30 tablet 08/14/20 Unknown Rx Multivitamin with Folic Acid [Cvs 400 mcg PO QDAY #30 tablet 08/14/20 Unknown Rx One Daily Essential Tablet] Thiamine [Vitamin B-1] 100 mg PO QDAY #30 tablet 08/14/20 Unknown Rx Ondansetron [Zofran ODT TAB] 4 mg PO Q8HR #14 tab.rapdis 09/10/20 Unknown Rx Pantoprazole [Protonix TAB] 40 mg PO QDAY #30 tablet 09/10/20 Unknown Rx Naproxen [Naprosyn] 500 mg PO BID #14 tablet 09/17/20 Unknown Rx Esomeprazole Magnesium [NexIUM] 40 mg PO QDAY #30 capsule. 11/23/20 Unknown Rx Naproxen [Naprosyn] 500 mg PO BID #14 tablet 12/17/20 Unknown Rx Ondansetron [Zofran ODT TAB] 4 mg PO Q8HR PRN #10 tab.rapdis 12/23/20 Unknown Rx Albuterol Mdi (or & Nicu Only) 2 puff IH QID PRN #8.5 gram 01/26/21 Unknown Rx [ProAir HFA Inhaler] Albuterol Sulfate [Proventil Hfa] 6.7 gm IH Q4HR #1 05/24/21 Unknown Rx Benzonatate [Tessalon Perles] 100 mg PO Q8HR #21 cap 05/24/21 Unknown Rx methylPREDNISolone [Medrol 4MG 4 mg PO ONCE #1 05/24/21 Unknown Rx DOSEPAK (21 tabs)] Allergies Allergy/AdvReac Type Severity Reaction Status Date / Time No Known Allergies Allergy Verified 09/17/20 07:29 ED Review of Systems ROS: Stated complaint: SOB Other details as noted in HPI Comment: All other systems reviewed and negative Constitutional: denies: chills, fever Eyes: denies: eye pain, eye discharge, vision change ENT: denies: ear pain, throat pain Respiratory: cough. denies: shortness of breath, wheezing Cardiovascular: as per HPI, chest pain. denies: palpitations Endocrine: no symptoms reported Gastrointestinal: denies: abdominal pain, nausea, diarrhea Genitourinary: denies: urgency, dysuria Musculoskeletal: denies: back pain, joint swelling, arthralgia Skin: denies: rash, lesions Neurological: denies: headache, weakness, paresthesias Psychiatric: denies: anxiety, depression Hematological/Lymphatic: denies: easy bleeding, easy bruising ED Past Medical Hx - Past Medical History Hx Hypertension: Yes Hx CVA: Yes (left) Hx Heart Attack/AMI: Yes Hx Congestive Heart Failure: No Hx Diabetes: No Hx Asthma: No Hx COPD: No Hx HIV: No Additional medical history: chronic pain in back, neck and L knee, ETOH abuse. herniated disc - Surgical History Hx Appendectomy: Yes Additional Surgical History: Left Knee. skin graft to right hand, left hip surgery - Social History Smoking Status: Former Smoker Substance Use Type: None - Medications Home Medications: Home Medications Medication Instructions Recorded Confirmed Last Taken Type Aspirin 325 mg PO QDAY #30 tablet 10/23/19 Unknown Rx Metoprolol [Lopressor TAB] 25 mg PO BID #60 tablet 10/23/19 Unknown Rx Aspirin 325 mg PO QDAY #30 tablet 05/16/20 Unknown Rx Metoprolol [Lopressor TAB] 25 mg PO BID #60 tablet 05/16/20 Unknown Rx Pravastatin [Pravachol] 20 mg PO QHS #30 tablet 05/16/20 Unknown Rx Folic Acid [Folvite] 1 mg PO QDAY #30 tablet 08/14/20 Unknown Rx Multivitamin with Folic Acid [Cvs 400 mcg PO QDAY #30 tablet 08/14/20 Unknown Rx One Daily Essential Tablet] Thiamine [Vitamin B-1] 100 mg PO QDAY #30 tablet 08/14/20 Unknown Rx Ondansetron [Zofran ODT TAB] 4 mg PO Q8HR #14 tab.rapdis 09/10/20 Unknown Rx Pantoprazole [Protonix TAB] 40 mg PO QDAY #30 tablet 09/10/20 Unknown Rx Naproxen [Naprosyn] 500 mg PO BID #14 tablet 09/17/20 Unknown Rx Esomeprazole Magnesium [NexIUM] 40 mg PO QDAY #30 capsule.dr 11/23/20 Unknown Rx Naproxen [Naprosyn] 500 mg PO BID #14 tablet 12/17/20 Unknown Rx Ondansetron [Zofran ODT TAB] 4 mg PO Q8HR PRN #10 tab.rapdis 12/23/20 Unknown Rx Albuterol Mdi (or & Nicu Only) 2 puff IH QID PRN #8.5 gram 01/26/21 Unknown Rx [ProAir HFA Inhaler] Albuterol Sulfate [Proventil Hfa] 6.7 gm IH Q4HR #1 05/24/21 Unknown Rx Benzonatate [Tessalon Perles] 100 mg PO Q8HR #21 cap 05/24/21 Unknown Rx methylPREDNISolone [Medrol 4MG 4 mg PO ONCE #1 05/24/21 Unknown Rx DOSEPAK (21 tabs)] ED Physical Exam - General Limitations: Physical Limitation General appearance: alert, in no apparent distress - Head Head exam: Present: atraumatic, normocephalic - Eye Eye exam: Present: normal appearance, PERRL, EOMI Pupils: Present: normal accommodation - ENT ENT exam: Present: normal exam, normal orophraynx, mucous membranes moist - Neck Neck exam: Present: normal inspection, full ROM. Absent: tenderness, meningismus - Respiratory Respiratory exam: Present: normal lung sounds bilaterally, chest wall tend erness. Absent: respiratory distress - Cardiovascular Cardiovascular Exam: Present: regular rate, normal rhythm, normal heart sounds. Absent: systolic murmur, diastolic murmur, rubs, gallop - GI/Abdominal GI/Abdominal exam: Present: soft, normal bowel sounds. Absent: distended, tenderness, guarding, rebound, rigid - Rectal Rectal exam: Present: deferred - Extremities Exam Extremities exam: Present: normal inspection, full ROM, normal capillary refill. Absent: tenderness, calf tenderness (No posterior calf tenderness, negative Homans' sign bilaterally.) - Back Exam Back exam: Present: normal inspection, full ROM. Absent: tenderness, CVA tenderness (R), CVA tenderness (L) - Neurological Exam Neurological exam: Present: alert, oriented X3 - Psychiatric Psychiatric exam: Present: normal affect, normal mood - Skin Skin exam: Present: warm, dry, intact, normal color. Absent: rash ED Course Vital Signs 05/23/21 22:46 Temperature 97.7 F Pulse Rate 114 H Respiratory 18 Rate Blood Pressure 116/83 O2 Sat by Pulse 97 Oximetry - Reevaluation(s) Reevaluation #1: 05/24/21 07:20 Patient is well-appearing, nontoxic in no acute distress. Vital signs are stable. Cardiac protocol was ordered due to his complaint. ED Medical Decision Making - Lab Data Result diagrams: 05/24/21 04:24 05/24/21 04:24 Lab Results 05/24/21 05/24/21 05/24/21 Range/Units 04:24 04:24 06:47 WBC 4.1 L (4.5-11.0) K/mm3 RBC 4.99 (3.65-5.03) M/mm3 Hgb 12.9 (11.8-15.2) gm/dl Hct 40.2 (35.5-45.6) % MCV 81 L (84-94) fl MCH 26 L (28-32) pg MCHC 32 (32-34) % RDW 18.3 H (13.2-15.2) % Plt Count 289 (140-440) K/mm3 Lymph % (Auto) 45.1 H (13.4-35.0) % [place] % (Auto) 10.1 H (0.0-7.3) % Eos % (Auto) 4.5 H (0.0-4.3) % Baso % (Auto) 1.5 (0.0-1.8) % Lymph # (Auto) 1.9 (1.2-5.4) K/mm3 [place] # (Auto) 0.4 (0.0-0.8) K/mm3 Eos # (Auto) 0.2 (0.0-0.4) K/mm3 Baso # (Auto) 0.1 (0.0-0.1) K/mm3 Seg Neutrophils % 38.8 L (40.0-70.0) % Seg Neutrophils # 1.6 L (1.8-7.7) K/mm3 Sodium 137 (137-145) mmol/L Potassium 4.6 (3.6-5.0) mmol/L Chloride 99.2 (98-107) mmol/L Carbon Dioxide 22 (22-30) mmol/L Anion Gap 20 mmol/L BUN 10 (9-20) mg/dL Creatinine 0.5 L (0.8-1.3) mg/dL Estimated GFR > 60 ml/min BUN/Creatinine Ratio 20 % Glucose 91 (75-100) mg/dL Calcium 9.0 (8.4-10.2) mg/dL Total Bilirubin 0.20 (0.1-1.2) mg/dL AST 28 (5-40) units/L ALT 22 (7-56) units/L Alkaline Phosphatase 245 H (35-129) units/L Troponin T < 0.010 < 0.010 (0.00-0.029) ng/mL Total Protein 8.9 H (6.3-8.2) g/dL Albumin 4.4 (3.9-5) g/dL Albumin/Globulin Ratio 1.0 % - EKG Data -: EKG Interpreted by In EKG shows normal: sinus rhythm Rate: normal - EKG Data When compared to previous EKG there are: no significant change (when compared to EKG 01/26/21) Interpretation: no acute changes (Normal sinus rhythm with a ventricular rate of 99 bpm, no acute ST or T wave abnormalities, no STEMI, normal axis, normal intervals) - Radiology Data Radiology results: report reviewed, image reviewed Loc: ED Attending Dr: Ordering Physician: ED DOC, MD Date of Service: 05/24/21 Procedure(s): XR chest routine 2V Accession Number(s): [id number] cc: ED MD JOS Fluoro Time In Minutes: CHEST 2 VIEWS INDICATION: CHEST PAIN. COMPARISON: 01/25/2021 FINDINGS: Support devices: None. Heart: Within normal limits. Lungs/Pleura: Mild elevation left hemidiaphragm. Mild opacity left base. Mild chronic interstitial thickening. No significant pleural effusion. IMPRESSION: 1. Mild chronic interstitial thickening. 2. Mild opacity left base is favored to be atelectasis. Signer Name: Vick Em MD Signed: 05/24/2021 4:44 AM Workstation Name: [id number] Transcribed By: ES Dictated By: Vick Em MD Electronically Authenticated By: Vick Em MD Signed Date/Time: 05/24/21443 DD/ 3 TD/TT: - Medical Decision Making Patient's work-up was fortunately unremarkable. Heart score is low and the patient has no dyspnea on exertion. His chest pain is reproducible on palpation of the chest wall. Lungs are clear and oxygen saturation is normal. Patient is a low risk by Wells criteria for PE. There is no widening of the mediastinum, no tearing or ripping pain to the back no evidence of a pneumothorax or pneumomediastinum. X-ray of his chest unremarkable other than mild atelectasis. I will treat the patient for acute bronchitis with an inhaler, steroid and cough medication recommend outpatient follow-up primary care doctor. Return the [facility] department change worsening symptoms. - Differential Diagnosis bronchitis, pneumonia, ACS Critical care attestation.: If time is entered above; I have spent that time in minutes in the direct care of this critically ill patient, excluding procedure time. ED Disposition Clinical Impression: Acute bronchitis Qualifiers: Bronchitis organism: unspecified organism Qualified Code(s): J20.9 - Acute bronchitis, unspecified Disposition: 01 HOME / SELF CARE / HOMELESS Is pt being admited?: No Condition: Stable Instructions: Acute Bronchitis (ED), Acute Bronchitis, Adult, [id number] Prescriptions: methylPREDNISolone [Medrol 4MG DOSEPAK (21 tabs)] 4 mg PO ONCE #1 Albuterol Sulfate [Proventil Hfa] 6.7 gm IH Q4HR #1 Benzonatate [Tessalon Perles] 100 mg PO Q8HR #21 cap Referrals: MATHEW REAVES MD [Primary Care Provider] - 3-5 Days Time of Disposition: 07:54
[2021-05-24 08:19] VITALS: BP 113/79
--- NOTE | 2021-05-25 19:16 | Electrocardiograph Report ---
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
== END 2021-05-24 08:22 | disposition home or self-care (01) ==
LOC: ED 22:40
DX: J20.9 Acute bronchitis, unspecified (principal); Z87.891 Personal history of nicotine dependence
CPT/HCPCS: 36415; 71046; 80053; 84484; 85025; 93005; 99284

== ENCOUNTER 2021-05-27 23:23 | Emergency (ER) | payer MEDICAID ==
--- NOTE | 2021-05-28 07:12 | XRay Report ---
CHEST 2 VIEWS INDICATION / CLINICAL INFORMATION: Chest pain. COMPARISON: 05/24/21. FINDINGS: SUPPORT DEVICES: None. HEART / MEDIASTINUM: The heart size and pulmonary vasculature are normal. The aorta is normal in benita joan. LUNGS / PLEURA: Left basilar subsegmental parenchymal disease has cleared. No new pulmonary or pleura l abnormality. No pneumothorax. ADDITIONAL FINDINGS: No significant additional findings. IMPRESSION: No acute findings. Signer Name: Dany Laboy MD Signed: 05/28/2021 7:08 AM Workstation Name: [id number]
[2021-05-28 08:29] LABS: Hematocrit 40.5 % (35.5-45.6); Hemoglobin 13.1 gm/dl (11.8-15.2); Mean Corpuscular HGB Conc 32 % (32-34); Mean Corpuscular Volume 78 fl (84-94); Platelet Count 381 K/mm3 (140-440); Red Blood Count 5.16 M/mm3 (3.65-5.03); Red Cell Distribution Width 17.6 % (13.2-15.2)
[2021-05-28 08:43] LABS: Alanine Aminotransferase 18 units/L (7-56); Albumin 4.9 g/dL (3.9-5); Blood Urea Nitrogen 7 mg/dL (9-20); Calcium 9.5 mg/dL (8.4-10.2); Hemolysis Index 14
[2021-05-28] MEDS ORDERED: KETOROLAC 10 MG TAB PO ONE (08:53)
[2021-05-28 08:57] LABS: BUN/Creatinine Ratio 12
--- NOTE | 2021-05-28 11:26 | Emergency Department Report ---
ED Chest Pain HPI - General Chief Complaint: Dyspnea/Respdistress Stated Complaint: CHEST PAIN/SOB Time Seen by Provider: 05/28/21 06:46 Source: patient Mode of arrival: Ambulatory Limitations: No Limitations - History of Present Illness Initial Comments: 60-year-old black male with no past medical history presents to the emergency department for evaluation of shortness of breath for the past 2 days. He states that a few days ago he fell and hit his chest on the stairwell and since then he has had intermittent chest pain or shortness of breath. He denies nausea, dizziness, diaphoresis. MD Complaint: chest pain -: Gradual, days(s) (2 to 3 days.) Pain Location: substernal Pain Radiation: none Severity scale (0 -10): 8 Quality: aching Consistency: intermittent Worsens With: palpation, movement Context: trauma/injury re: dyspnea. denies: nausea, vomting, diaphoresis, sense of impending doom Other Symptoms: denies: cough, fever, syncope, rash, acid taste in mouth, leg swelling, palpitations, burping Treatments Prior to Arrival: none - Related Data Previous Rx's Medication Instructions Recorded Last Taken Type Aspirin 325 mg PO QDAY #30 tablet 10/23/19 Unknown Rx Metoprolol [Lopressor TAB] 25 mg PO BID #60 tablet 10/23/19 Unknown Rx Aspirin 325 mg PO QDAY #30 tablet 05/16/20 Unknown Rx Metoprolol [Lopressor TAB] 25 mg PO BID #60 tablet 05/16/20 Unknown Rx Pravastatin [Pravachol] 20 mg PO QHS #30 tablet 05/16/20 Unknown Rx Folic Acid [Folvite] 1 mg PO QDAY #30 tablet 08/14/20 Unknown Rx Multivitamin with Folic Acid [Cvs 400 mcg PO QDAY #30 tablet 08/14/20 Unknown Rx One Daily Essential Tablet] Thiamine [Vitamin B-1] 100 mg PO QDAY #30 tablet 08/14/20 Unknown Rx Ondansetron [Zofran ODT TAB] 4 mg PO Q8HR #14 tab.rapdis 09/10/20 Unknown Rx Pantoprazole [Protonix TAB] 40 mg PO QDAY #30 tablet 09/10/20 Unknown Rx Naproxen [Naprosyn] 500 mg PO BID #14 tablet 09/17/20 Unknown Rx Esomeprazole Magnesium [NexIUM] 40 mg PO QDAY #30 capsule. 11/23/20 Unknown Rx Naproxen [Naprosyn] 500 mg PO BID #14 tablet 12/17/20 Unknown Rx Ondansetron [Zofran ODT TAB] 4 mg PO Q8HR PRN #10 tab.rapdis 12/23/20 Unknown Rx Albuterol Mdi (or & Nicu Only) 2 puff IH QID PRN #8.5 gram 01/26/21 Unknown Rx [ProAir HFA Inhaler] Albuterol Sulfate [Proventil Hfa] 6.7 gm IH Q4HR #1 05/24/21 Unknown Rx Benzonatate [Tessalon Perles] 100 mg PO Q8HR #21 cap 05/24/21 Unknown Rx methylPREDNISolone [Medrol 4MG 4 mg PO ONCE #1 05/24/21 Unknown Rx DOSEPAK (21 tabs)] Allergies Allergy/AdvReac Type Severity Reaction Status Date / Time No Known Allergies Allergy Verified 09/17/20 07:29 Heart Score - HEART Score History: Slightly suspicious EKG: Normal Age: 45-65 Risk factors: 1-2 risk factors Troponin: < normal limit HEART Score: 2 - EKG Read Time Time EKG Completed: 11:20 EKG Read Time: 11:21 - Critical Actions Critical Actions: 0-3 pts:0.9-1.7%risk of adverse cardiac event.Candidate for discharge ED Review of Systems ROS: Stated complaint: CHEST PAIN/SOB Other details as noted in HPI Comment: All other systems reviewed and negative Constitutional: denies: chills, diaphoresis, fever, malaise, weakness Respiratory: shortness of breath. denies: cough, SOB with exertion, SOB at rest Cardiovascular: chest pain. denies: palpitations, dyspnea on exertion, orthopnea, edema, syncope, paroxysmal nocturnal dyspnea Gastrointestinal: denies: nausea, vomiting Neurological: denies: headache, weakness ED Past Medical Hx - Past Medical History Hx Hypertension: Yes Hx CVA: Yes (left) Hx Heart Attack/AMI: Yes Hx Congestive Heart Failure: No Hx Diabetes: No Hx Asthma: No Hx COPD: No Hx HIV: No Additional medical history: chronic pain in back, neck and L knee, ETOH abuse. herniated disc - Surgical History Hx Appendectomy: Yes Additional Surgical History: Left Knee. skin graft to right hand, left hip olea rgery - Social History Smoking Status: Former Smoker Substance Use Type: None - Medications Home Medications: Home Medications Medication Instructions Recorded Confirmed Last Taken Type Aspirin 325 mg PO QDAY #30 tablet 10/23/19 Unknown Rx Metoprolol [Lopressor TAB] 25 mg PO BID #60 tablet 10/23/19 Unknown Rx Aspirin 325 mg PO QDAY #30 tablet 05/16/20 Unknown Rx Metoprolol [Lopressor TAB] 25 mg PO BID #60 tablet 05/16/20 Unknown Rx Pravastatin [Pravachol] 20 mg PO QHS #30 tablet 05/16/20 Unknown Rx Folic Acid [Folvite] 1 mg PO QDAY #30 tablet 08/14/20 Unknown Rx Multivitamin with Folic Acid [Cvs 400 mcg PO QDAY #30 tablet 08/14/20 Unknown Rx One Daily Essential Tablet] Thiamine [Vitamin B-1] 100 mg PO QDAY #30 tablet 08/14/20 Unknown Rx Ondansetron [Zofran ODT TAB] 4 mg PO Q8HR #14 tab.rapdis 09/10/20 Unknown Rx Pantoprazole [Protonix TAB] 40 mg PO QDAY #30 tablet 09/10/20 Unknown Rx Naproxen [Naprosyn] 500 mg PO BID #14 tablet 09/17/20 Unknown Rx Esomeprazole Magnesium [NexIUM] 40 mg PO QDAY #30 capsule.dr 11/23/20 Unknown Rx Naproxen [Naprosyn] 500 mg PO BID #14 tablet 12/17/20 Unknown Rx Ondansetron [Zofran ODT TAB] 4 mg PO Q8HR PRN #10 tab.rapdis 12/23/20 Unknown Rx Albuterol Mdi (or & Nicu Only) 2 puff IH QID PRN #8.5 gram 01/26/21 Unknown Rx [ProAir HFA Inhaler] Albuterol Sulfate [Proventil Hfa] 6.7 gm IH Q4HR #1 05/24/21 Unknown Rx Benzonatate [Tessalon Perles] 100 mg PO Q8HR #21 cap 05/24/21 Unknown Rx methylPREDNISolone [Medrol 4MG 4 mg PO ONCE #1 05/24/21 Unknown Rx DOSEPAK (21 tabs)] ED Physical Exam - General Limitations: No Limitations General appearance: alert, in no apparent distress - Head Head exam: Present: atraumatic, normocephalic - Eye Eye exam: Present: normal appearance. Absent: conjunctival injection - Neck Neck exam: Present: normal inspection. Absent: tenderness, full ROM, lymphadenopathy - Respiratory Respiratory exam: Present: normal lung sounds bilaterally, chest wall tenderness. Absent: respiratory distress, wheezes, rales, rhonchi, stridor, accessory muscle use - Cardiovascular Cardiovascular Exam: Present: regular rate, normal rhythm, normal heart sounds - GI/Abdominal GI/Abdominal exam: Present: soft, normal bowel sounds. Absent: distended, tenderness, guarding, rebound, rigid - Extremities Exam Extremities exam: Present: normal inspection - Back Exam Back exam: Present: normal inspection. Absent: tenderness, CVA tenderness (R), CVA tenderness (L) - Neurological Exam Neurological exam: Present: alert, oriented X3 - Psychiatric Psychiatric exam: Present: normal affect, normal mood - Skin Skin exam: Present: warm, dry, intact, normal color ED Course Vital Signs 05/27/21 05/28/21 23:26 11:50 Temperature 97.3 F L 98.2 F Pulse Rate 126 H 70 Respiratory 18 12 Rate Blood Pressure 131/93 Blood Pressure 142/88 [Right] O2 Sat by Pulse 96 98 Oximetry - Reevaluation(s) Reevaluation #1: 05/28/21 11:25 Chest pain totally resolved after Toradol. Patient states he feels much better. MERT score - Mert Score Age > 65: (0) No Aspirin use within the Past 7 Days: (0) No 3 or more CAD Risk Factors: (1) Yes 2 or more Angina events in past 24 hrs: (0) No Known CAD with more than 50% Stenosis: (0) No Elevated Cardiac Markers: (0) No ST Deviation Greater than 0.5mm: (0) No MERT Score: 1 ED Medical Decision Making - Lab Data Result diagrams: 05/28/21 07:11 05/28/21 07:11 - EKG Data Interpretation: no acute changes - Radiology Data Radiology results: report reviewed, image reviewed Chest x-ray: IMPRESSION: No acute findings. - Medical Decision Making 60-year-old black male with no past medical history presents to the emergency department for evaluation of shortness of breath for the past 2 days. He states that a few days ago he fell and hit his chest on the stairwell and since then he has had intermittent chest pain or shortness of breath. He denies nausea, dizziness, diaphoresis. EKG without acute abnormalities, chest x-ray without acute abnormalities, troponin negative x2, heart score 2, and pain totally resolved after Toradol. Low suspicion for CAD, and patient will be discharged home to follow-up with his primary care provider and/or cardiology. He is advised to use Tylenol and Motrin as needed for pain and return to the emergency department for any concerning symptoms. He verbalized understanding of and agreement with plan of care. Critical care attestation.: If time is entered above; I have spent that time in minutes in the direct care of this critically ill patient, excluding procedure time. ED Disposition Clinical Impression: Chest pain Qualifiers: Chest pain type: unspecified Qualified Code(s): R07.9 - Chest pain, unspecified Disposition: 01 HOME / SELF CARE / HOMELESS Is pt being admited?: No Does the pt Need Aspirin: No Condition: Stable Instructions: Chest Wall Pain, [id number], Nonspecific Chest Pain, Adult, [id number] Additional Instructions: Use Tylenol and ibuprofen as needed for pain. Follow-up with primary care provider or cardiology for worsening symptoms. Referrals: RACH LEÓN MD [Referring] - 3-5 Days LIBAN VARGAS MD [Staff Physician] - 3-5 Days Time of Disposition: 11:26
[2021-05-28 11:51] VITALS: BP 142/88
== END 2021-05-28 11:53 | disposition home or self-care (01) ==
LOC: ED 23:23
DX: R07.9 Chest pain, unspecified (principal); I10 Essential (primary) hypertension; Z87.891 Personal history of nicotine dependence
CPT/HCPCS: 36415; 71046; 80053; 84484; 85027; 99283

== ENCOUNTER 2021-05-31 00:19 | Emergency (ER) | payer MEDICAID ==
--- NOTE | 2021-05-31 11:20 | Emergency Department Report ---
ED Shortness of Breath HPI - General Chief Complaint: Dyspnea/Respdistress Stated Complaint: SOB Time Seen by Provider: 05/31/21 11:00 Source: patient Mode of arrival: Ambulatory Limitations: No Limitations - History of Present Illness Initial Comments: Chief complaint: "I feel better." HPI: This is a 60-year-old male with history of alcohol dependence, gout, GERD who presents with shortness of breath. Shortness of breath transient. No chest pain. He is symptom-free at this point. MD Complaint: shortness of breath -: Gradual, days(s) (6 days) Severity: mild Pain Scale: 0 Consistency: now resolved Improves With: rest Worsens With: nothing Associated Symptoms: denies other symptoms - Related Data Previous Rx's Medication Instructions Recorded Last Taken Type Aspirin 325 mg PO QDAY #30 tablet 10/23/19 Unknown Rx Metoprolol [Lopressor TAB] 25 mg PO BID #60 tablet 10/23/19 Unknown Rx Aspirin 325 mg PO QDAY #30 tablet 05/16/20 Unknown Rx Metoprolol [Lopressor TAB] 25 mg PO BID #60 tablet 05/16/20 Unknown Rx Pravastatin [Pravachol] 20 mg PO QHS #30 tablet 05/16/20 Unknown Rx Folic Acid [Folvite] 1 mg PO QDAY #30 tablet 08/14/20 Unknown Rx Multivitamin with Folic Acid [Cvs 400 mcg PO QDAY #30 tablet 08/14/20 Unknown Rx One Daily Essential Tablet] Thiamine [Vitamin B-1] 100 mg PO QDAY #30 tablet 08/14/20 Unknown Rx Ondansetron [Zofran ODT TAB] 4 mg PO Q8HR #14 tab.rapdis 09/10/20 Unknown Rx Pantoprazole [Protonix TAB] 40 mg PO QDAY #30 tablet 09/10/20 Unknown Rx Naproxen [Naprosyn] 500 mg PO BID #14 tablet 09/17/20 Unknown Rx Esomeprazole Magnesium [NexIUM] 40 mg PO QDAY #30 capsule. 11/23/20 Unknown Rx Naproxen [Naprosyn] 500 mg PO BID #14 tablet 12/17/20 Unknown Rx Ondansetron [Zofran ODT TAB] 4 mg PO Q8HR PRN #10 tab.rapdis 12/23/20 Unknown Rx Albuterol Mdi (or & Nicu Only) 2 puff IH QID PRN #8.5 gram 01/26/21 Unknown Rx [ProAir HFA Inhaler] Albuterol Sulfate [Proventil Hfa] 6.7 gm IH Q4HR #1 05/24/21 Unknown Rx Benzonatate [Tessalon Perles] 100 mg PO Q8HR #21 cap 05/24/21 Unknown Rx methylPREDNISolone [Medrol 4MG 4 mg PO ONCE #1 05/24/21 Unknown Rx DOSEPAK (21 tabs)] Allergies Allergy/AdvReac Type Severity Reaction Status Date / Time No Known Allergies Allergy Verified 09/17/20 07:29 ED Review of Systems ROS: Stated complaint: SOB Other details as noted in HPI Comment: All other systems reviewed and negative Constitutional: denies: fever, malaise Eyes: denies: as per HPI Respiratory: shortness of breath. denies: cough Cardiovascular: denies: chest pain ED Past Medical Hx - Past Medical History Previous Medical History?: Yes Hx Hypertension: Yes Hx CVA: Yes (left) Hx Heart Attack/AMI: Yes Hx Congestive Heart Failure: No Hx Diabetes: No Hx Asthma: No Hx COPD: No Hx HIV: No Additional medical history: chronic pain in back, neck and L knee, ETOH abuse. herniated disc - Surgical History Past Surgical History?: Yes Hx Appendectomy: Yes Additional Surgical History: Left Knee. skin graft to right hand, left hip surgery - Social History Smoking Status: Former Smoker Substance Use Type: None - Medications Home Medications: Home Medications Medication Instructions Recorded Confirmed Last Taken Type Aspirin 325 mg PO QDAY #30 tablet 10/23/19 Unknown Rx Metoprolol [Lopressor TAB] 25 mg PO BID #60 tablet 10/23/19 Unknown Rx Aspirin 325 mg PO QDAY #30 tablet 05/16/20 Unknown Rx Metoprolol [Lopressor TAB] 25 mg PO BID #60 tablet 05/16/20 Unknown Rx Pravastatin [Pravachol] 20 mg PO QHS #30 tablet 05/16/20 Unknown Rx Folic Acid [Folvite] 1 mg PO QDAY #30 tablet 08/14/20 Unknown Rx Multivitamin with Folic Acid [Cvs 400 mcg PO QDAY #30 tablet 08/14/20 Unknown Rx One Daily Essential Tablet] Thiamine [Vitamin B-1] 100 mg PO QDAY #30 tablet 08/14/20 Unknown Rx Ondansetron [Zofran ODT TAB] 4 mg PO Q8HR #14 tab.rapdis 09/10/20 Unknown Rx Pantoprazole [Protonix TAB] 40 mg PO QDAY #30 tablet 09/10/20 Unknown Rx Naproxen [Naprosyn] 500 mg PO BID #14 tablet 09/17/20 Unknown Rx Esomeprazole Magnesium [NexIUM] 40 mg PO QDAY #30 capsule.dr 11/23/20 Unknown Rx Naproxen [Naprosyn] 500 mg PO BID #14 tablet 12/17/20 Unknown Rx Ondansetron [Zofran ODT TAB] 4 mg PO Q8HR PRN #10 tab.rapdis 12/23/20 Unknown Rx Albuterol Mdi (or & Nicu Only) 2 puff IH QID PRN #8.5 gram 01/26/21 Unknown Rx [ProAir HFA Inhaler] Albuterol Sulfate [Proventil Hfa] 6.7 gm IH Q4HR #1 05/24/21 Unknown Rx Benzonatate [Tessalon Perles] 100 mg PO Q8HR #21 cap 05/24/21 Unknown Rx methylPREDNISolone [Medrol 4MG 4 mg PO ONCE #1 05/24/21 Unknown Rx DOSEPAK (21 tabs)] ED Physical Exam - General Limitations: No Limitations General appearance: alert, in no apparent distress, other (Smiling, pleasant, GCS 15) - Head Head exam: Present: atraumatic, normocephalic - Eye Eye exam: Present: normal appearance - ENT ENT exam: Present: mucous membranes moist - Neck Neck exam: Present: normal inspection - Respiratory Respiratory exam: Present: normal lung sounds bilaterally. Absent: respiratory distress - Cardiovascular Cardiovascular Exam: Present: regular rate, normal rhythm. Absent: systolic murmur, diastolic murmur, rubs, gallop - GI/Abdominal GI/Abdominal exam: Present: soft, normal bowel sounds. Absent: distended, tenderness, guarding, rebound - Rectal Rectal exam: Present: deferred - Extremities Exam Extremities exam: Present: normal inspection - Back Exam Back exam: Present: normal inspection - Neurological Exam Neurological exam: Present: alert, oriented X3 - Psychiatric Psychiatric exam: Present: normal affect, normal mood - Skin Skin exam: Present: warm, dry, intact, normal color. Absent: rash ED Course Vital Signs 05/31/21 00:30 Temperature 98.8 F Pulse Rate 113 H Respiratory 18 Rate Blood Pressure 128/81 O2 Sat by Pulse 97 Oximetry ED Medical Decision Making - Medical Decision Making Mr. Lemus presents with mild shortness of breath for the past 6 days. He has been in the waiting room for 11 hours. I have seen Mr. Lemus on several occasions for recurrent chest pain and alcohol intoxication. He is now sober alert pleasant. He is symptom-free. I suspect Mr. Lemus has COPD without official diagnosis. I do not suspect dangerous disease entities such as pulmonary embolism, pneumothorax or ACS. He is discharged Critical care attestation.: If time is entered above; I have spent that time in minutes in the direct care of this critically ill patient, excluding procedure time. ED Disposition Clinical Impression: Chronic bronchitis Disposition: 01 HOME / SELF CARE / HOMELESS Is pt being admited?: No Does the pt Need Aspirin: No Condition: Stable Instructions: Chronic Bronchitis (ED) Referrals: KANDACE BOWIE MD [Primary Care Provider] - 3-5 Days
--- NOTE | 2021-05-31 11:28 | Electrocardiograph Report ---
[facility] Test Date: 2021-05-31 Test Time: 11:17:33 Pat Name: REBECCA ELIZABETH Department: Room: Gender: M Clinical Ob: TED : 1960 Requested By: IMN GERARDO Order Number: [id number] Reading MD: Crispin Johnson Measurements Intervals [place] Rate: 96 P: 83 FL: 183 QRS: 30 QRSD: 74 T: 50 QT: 377 QTc: 477 Interpretive Statements Sinus rhythm Compared to ECG 05/23/2021 23:15:32 First degree AV block no longer present Myocardial infarct finding no longer present Electronically Signed On 05-31-2021 11:28:21 EDT by Crispin Johnson
[2021-05-31 11:33] VITALS: BP 122/80
== END 2021-05-31 11:33 | disposition home or self-care (01) ==
LOC: ED 00:19
DX: J42 Unspecified chronic bronchitis (principal); I10 Essential (primary) hypertension; G89.29 Other chronic pain; Z87.891 Personal history of nicotine dependence; Z90.49 Acquired absence of other specified parts of digestive tract; Z79.82 Long term (current) use of aspirin; Z79.899 Other long term (current) drug therapy
CPT/HCPCS: 93005; 99282

== ENCOUNTER 2021-06-02 23:06 | Emergency (ER) | payer MEDICAID ==
[2021-06-02 23:36] VITALS: BP 124/79
== END 2021-06-03 02:00 | disposition left against medical advice (07) ==
LOC: ED 23:06
DX: R06.02 Shortness of breath (principal); Z53.21 Procedure and treatment not carried out due to patient leaving prior to being seen by health care provider

== ENCOUNTER 2021-06-08 22:31 | Emergency (ER) | payer MEDICAID ==
[2021-06-08 22:40] VITALS: BP 142/88
--- NOTE | 2021-06-08 23:07 | XRay Report ---
CHEST 2 VIEWS INDICATION / CLINICAL INFORMATION: chest pain. COMPARISON: Chest x-ray on 05/28/2021 FINDINGS: SUPPORT DEVICES: None. HEART / MEDIASTINUM: No significant abnormality. LUNGS / PLEURA: No significant pulmonary or pleural abnormality. No pneumothorax. ADDITIONAL FINDINGS: No significant additional findings. IMPRESSION: 1. No acute findings. Signer Name: Jesus Weeks MD Signed: 06/08/2021 11:03 PM Workstation Name: [id number]
[2021-06-08 23:33] LABS: Basophils % (Auto) 0.8 % (0.0-1.8); Eosinophils # (Auto) 0.1 K/mm3 (0.0-0.4); Eosinophils % (Auto) 1.5 % (0.0-4.3); Hematocrit 37.6 % (35.5-45.6); Hemoglobin 12.4 gm/dl (11.8-15.2); Lymphocytes % (Auto) 52.9 % (13.4-35.0); Mean Corpuscular HGB Conc 33 % (32-34); Mean Corpuscular Volume 80 fl (84-94); Monocytes # (Auto) 0.3 K/mm3 (0.0-0.8); Monocytes % (Auto) 8.8 % (0.0-7.3); Platelet Count 143 K/mm3 (140-440); Red Blood Count 4.72 M/mm3 (3.65-5.03); Red Cell Distribution Width 18.8 % (13.2-15.2)
[2021-06-09] LABS: Alanine Aminotransferase 14 units/L (7-56); Albumin 4.3 g/dL (3.9-5); Blood Urea Nitrogen 4 mg/dL (9-20); Calcium 8.4 mg/dL (8.4-10.2); Hemolysis Index 4
[2021-06-09 00:19] LABS: BUN/Creatinine Ratio 7
--- NOTE | 2021-06-09 07:21 | Emergency Department Report ---
ED Chest Pain HPI - General Chief Complaint: Chest Pain Stated Complaint: SOB Time Seen by Provider: 06/09/21 01:52 Source: patient Mode of arrival: Ambulatory Limitations: No Limitations - History of Present Illness Initial Comments: This patient is homeless and is a regular visitor to the emergency department for evaluation. It appears that patient will usually sleep and then leave in the morning. He complained of some chest pain which is described as pleuritic and worsened by deep breathing. He denies fever or chills states that he has nausea but he is still eating. He denies diaphoresis palpitations or shortness of breath. MD Complaint: chest pain -: Gradual Pain Location: other (Anterior chest wall and ongoing for several days) Severity scale (0 -10): 2 Improves With: nothing Worsens With: inspiration, movement - Related Data Previous Rx's Medication Instructions Recorded Last Taken Type Aspirin 325 mg PO QDAY #30 tablet 10/23/19 Unknown Rx Metoprolol [Lopressor TAB] 25 mg PO BID #60 tablet 10/23/19 Unknown Rx Aspirin 325 mg PO QDAY #30 tablet 05/16/20 Unknown Rx Metoprolol [Lopressor TAB] 25 mg PO BID #60 tablet 05/16/20 Unknown Rx Pravastatin [Pravachol] 20 mg PO QHS #30 tablet 05/16/20 Unknown Rx Folic Acid [Folvite] 1 mg PO QDAY #30 tablet 08/14/20 Unknown Rx Multivitamin with Folic Acid [Cvs 400 mcg PO QDAY #30 tablet 08/14/20 Unknown Rx One Daily Essential Tablet] Thiamine [Vitamin B-1] 100 mg PO QDAY #30 tablet 08/14/20 Unknown Rx Ondansetron [Zofran ODT TAB] 4 mg PO Q8HR #14 tab.rapdis 09/10/20 Unknown Rx Pantoprazole [Protonix TAB] 40 mg PO QDAY #30 tablet 09/10/20 Unknown Rx Naproxen [Naprosyn] 500 mg PO BID #14 tablet 09/17/20 Unknown Rx Esomeprazole Magnesium [NexIUM] 40 mg PO QDAY #30 capsule. 11/23/20 Unknown Rx Naproxen [Naprosyn] 500 mg PO BID #14 tablet 12/17/20 Unknown Rx Ondansetron [Zofran ODT TAB] 4 mg PO Q8HR PRN #10 tab.rapdis 12/23/20 Unknown Rx Albuterol Mdi (or & Nicu Only) 2 puff IH QID PRN #8.5 gram 01/26/21 Unknown Rx [ProAir HFA Inhaler] Albuterol Sulfate [Proventil Hfa] 6.7 gm IH Q4HR #1 05/24/21 Unknown Rx Benzonatate [Tessalon Perles] 100 mg PO Q8HR #21 cap 05/24/21 Unknown Rx methylPREDNISolone [Medrol 4MG 4 mg PO ONCE #1 05/24/21 Unknown Rx DOSEPAK (21 tabs)] Allergies Allergy/AdvReac Type Severity Reaction Status Date / Time No Known Allergies Allergy Verified 09/17/20 07:29 Heart Score - HEART Score History: Slightly suspicious Age: 45-65 Troponin: < normal limit - EKG Read Time Time EKG Completed: 22:45 EKG Read Time: 22:50 ED Review of Systems ROS: Stated complaint: SOB Other details as noted in HPI Comment: All other systems reviewed and negative Constitutional: denies: chills, fever ENT: denies: ear pain, throat pain Cardiovascular: chest pain (Pleuritic in nature). denies: palpitations Endocrine: no symptoms reported Gastrointestinal: nausea (Patient has been eating and drinking without diffi culty). denies: abdominal pain, diarrhea Genitourinary: denies: urgency, dysuria, frequency Musculoskeletal: denies: back pain Skin: denies: rash, lesions Psychiatric: other (History of heavy alcohol usage). denies: anxiety, depression ED Past Medical Hx - Past Medical History Hx Hypertension: Yes Hx CVA: Yes (left) Hx Heart Attack/AMI: Yes Hx Congestive Heart Failure: No Hx Diabetes: No Hx Asthma: No Hx COPD: No Hx HIV: No Additional medical history: chronic pain in back, neck and L knee, ETOH abuse. herniated disc - Surgical History Hx Appendectomy: Yes Additional Surgical History: Left Knee. skin graft to right hand, left hip surgery - Social History Smoking Status: Unknown if ever smoked - Medications Home Medications: Home Medications Medication Instructions Recorded Confirmed Last Taken Type Aspirin 325 mg PO QDAY #30 tablet 10/23/19 Unknown Rx Metoprolol [Lopressor TAB] 25 mg PO BID #60 tablet 10/23/19 Unknown Rx Aspirin 325 mg PO QDAY #30 tablet 05/16/20 Unknown Rx Metoprolol [Lopressor TAB] 25 mg PO BID #60 tablet 05/16/20 Unknown Rx Pravastatin [Pravachol] 20 mg PO QHS #30 tablet 05/16/20 Unknown Rx Folic Acid [Folvite] 1 mg PO QDAY #30 tablet 08/14/20 Unknown Rx Multivitamin with Folic Acid [Cvs 400 mcg PO QDAY #30 tablet 08/14/20 Unknown Rx One Daily Essential Tablet] Thiamine [Vitamin B-1] 100 mg PO QDAY #30 tablet 08/14/20 Unknown Rx Ondansetron [Zofran ODT TAB] 4 mg PO Q8HR #14 tab.rapdis 09/10/20 Unknown Rx Pantoprazole [Protonix TAB] 40 mg PO QDAY #30 tablet 09/10/20 Unknown Rx Naproxen [Naprosyn] 500 mg PO BID #14 tablet 09/17/20 Unknown Rx Esomeprazole Magnesium [NexIUM] 40 mg PO QDAY #30 capsule. 11/23/20 Unknown Rx Naproxen [Naprosyn] 500 mg PO BID #14 tablet 12/17/20 Unknown Rx Ondansetron [Zofran ODT TAB] 4 mg PO Q8HR PRN #10 tab.rapdis 12/23/20 Unknown Rx Albuterol Mdi (or & Nicu Only) 2 puff IH QID PRN #8.5 gram 01/26/21 Unknown Rx [ProAir HFA Inhaler] Albuterol Sulfate [Proventil Hfa] 6.7 gm IH Q4HR #1 05/24/21 Unknown Rx Benzonatate [Tessalon Perles] 100 mg PO Q8HR #21 cap 05/24/21 Unknown Rx methylPREDNISolone [Medrol 4MG 4 mg PO ONCE #1 05/24/21 Unknown Rx DOSEPAK (21 tabs)] ED Physical Exam - General Limitations: No Limitations General appearance: alert (Once aroused from sleeping), in no apparent distress - Head Head exam: Present: atraumatic, normocephalic - Eye Eye exam: Present: normal appearance, PERRL, EOMI - ENT ENT exam: Present: normal exam, mucous membranes moist - Neck Neck exam: Present: normal inspection - Respiratory Respiratory exam: Present: normal lung sounds bilaterally. Absent: respiratory distress - Cardiovascular Cardiovascular Exam: Present: regular rate, normal rhythm. Absent: systolic murmur, diastolic murmur, rubs, gallop - GI/Abdominal GI/Abdominal exam: Present: soft, normal bowel sounds - Rectal Rectal exam: Present: deferred - Extremities Exam Extremities exam: Present: normal inspection, full ROM - Back Exam Back exam: Present: normal inspection, full ROM - Neurological Exam Neurological exam: Present: alert, oriented X3 - Psychiatric Psychiatric exam: Present: normal affect, normal mood, other (Cooperative and pleasant) ED Course Vital Signs 06/08/21 22:37 Temperature 98.3 F Pulse Rate 115 H Respiratory 16 Rate Blood Pressure 142/88 O2 Sat by Pulse 99 Oximetry MERT score - Mert Score Age > 65: (0) No Aspirin use within the Past 7 Days: (0) No 3 or more CAD Risk Factors: (1) Yes 2 or more Angina events in past 24 hrs: (0) No Known CAD with more than 50% Stenosis: (0) No Elevated Cardiac Markers: (0) No ST Deviation Greater than 0.5mm: (0) No MERT Score: 1 ED Medical Decision Making - Lab Data Result diagrams: 06/08/21 23:17 06/08/21 23:17 Reviewed and negative - EKG Data EKG shows normal: sinus rhythm Rate: tachycardia (106) - Radiology Data Radiology results: report reviewed, image reviewed Both are reviewed by me and there is no evidence of intrathoracic pathology. - Medical Decision Making The patient was allowed to sleep as he usually does however be discharged shortly. He was advised to use a mcfp and the emergency department should be utilized appropriately. Critical care attestation.: If time is entered above; I have spent that time in minutes in the direct care of this critically ill patient, excluding procedure time. ED Disposition Condition: Stable Referrals: MATHEW REAVES MD [Primary Care Provider] - 3-5 Days
--- NOTE | 2021-06-10 08:58 | Electrocardiograph Report ---
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
== END 2021-06-09 08:03 ==
LOC: ED 22:31
DX: R07.89 Other chest pain (principal); I10 Essential (primary) hypertension; G89.29 Other chronic pain; Z79.82 Long term (current) use of aspirin; Z79.899 Other long term (current) drug therapy
CPT/HCPCS: 36415; 71046; 80053; 84484; 85025; 93005; 99283

== ENCOUNTER 2021-06-11 00:15 | Emergency (ER) | payer MEDICAID ==
--- NOTE | 2021-06-11 06:21 | Emergency Department Report ---
ED General Adult HPI - General Chief complaint: Dyspnea/Respdistress Stated complaint: SOB PUI?: No Time Seen by Provider: 06/11/21 06:15 Source: patient Mode of arrival: Ambulatory Limitations: No Limitations - History of Present Illness Initial comments: "I am a little nauseated." HPI: THis is a 60 yo male with hx of alcohol dependence who presents with nausea. Gradual onset. No associated pain. -: Gradual Severity scale (0 -10): 0 Consistency: now resolved Improves with: none Worsens with: none Associated Symptoms: denies other symptoms Treatments Prior to Arrival: none - Related Data Previous Rx's Medication Instructions Recorded Last Taken Type Aspirin 325 mg PO QDAY #30 tablet 10/23/19 Unknown Rx Metoprolol [Lopressor TAB] 25 mg PO BID #60 tablet 10/23/19 Unknown Rx Aspirin 325 mg PO QDAY #30 tablet 05/16/20 Unknown Rx Metoprolol [Lopressor TAB] 25 mg PO BID #60 tablet 05/16/20 Unknown Rx Pravastatin [Pravachol] 20 mg PO QHS #30 tablet 05/16/20 Unknown Rx Folic Acid [Folvite] 1 mg PO QDAY #30 tablet 08/14/20 Unknown Rx Multivitamin with Folic Acid [Cvs 400 mcg PO QDAY #30 tablet 08/14/20 Unknown Rx One Daily Essential Tablet] Thiamine [Vitamin B-1] 100 mg PO QDAY #30 tablet 08/14/20 Unknown Rx Ondansetron [Zofran ODT TAB] 4 mg PO Q8HR #14 tab.rapdis 09/10/20 Unknown Rx Pantoprazole [Protonix TAB] 40 mg PO QDAY #30 tablet 09/10/20 Unknown Rx Naproxen [Naprosyn] 500 mg PO BID #14 tablet 09/17/20 Unknown Rx Esomeprazole Magnesium [NexIUM] 40 mg PO QDAY #30 capsule. 11/23/20 Unknown Rx Naproxen [Naprosyn] 500 mg PO BID #14 tablet 12/17/20 Unknown Rx Ondansetron [Zofran ODT TAB] 4 mg PO Q8HR PRN #10 tab.rapdis 12/23/20 Unknown Rx Albuterol Mdi (or & Nicu Only) 2 puff IH QID PRN #8.5 gram 01/26/21 Unknown Rx [ProAir HFA Inhaler] Albuterol Sulfate [Proventil Hfa] 6.7 gm IH Q4HR #1 05/24/21 Unknown Rx Benzonatate [Tessalon Perles] 100 mg PO Q8HR #21 cap 05/24/21 Unknown Rx methylPREDNISolone [Medrol 4MG 4 mg PO ONCE #1 05/24/21 Unknown Rx DOSEPAK (21 tabs)] Ondansetron [Zofran Odt] 4 mg PO Q8HR #10 tab.rapdis 06/09/21 Unknown Rx Allergies Allergy/AdvReac Type Severity Reaction Status Date / Time No Known Allergies Allergy Verified 09/17/20 07:29 ED Review of Systems ROS: Stated complaint: SOB Other details as noted in HPI Comment: All other systems reviewed and negative Constitutional: denies: chills, fever Respiratory: denies: cough, shortness of breath Cardiovascular: denies: chest pain Gastrointestinal: nausea. denies: abdominal pain Neurological: denies: headache ED Past Medical Hx - Past Medical History Previous Medical History?: Yes Hx Hypertension: Yes Hx CVA: Yes (left) Hx Heart Attack/AMI: Yes Hx Congestive Heart Failure: No Hx Diabetes: No Hx Asthma: No Hx COPD: No Hx HIV: No Additional medical history: chronic pain in back, neck and L knee, ETOH abuse. herniated disc - Surgical History Past Surgical History?: Yes Hx Appendectomy: Yes Additional Surgical History: Left Knee. skin graft to right hand, left hip surgery - Social History Smoking Status: Unknown if ever smoked Substance Use Type: Alcohol - Medications Home Medications: Home Medications Medication Instructions Recorded Confirmed Last Taken Type Aspirin 325 mg PO QDAY #30 tablet 10/23/19 Unknown Rx Metoprolol [Lopressor TAB] 25 mg PO BID #60 tablet 10/23/19 Unknown Rx Aspirin 325 mg PO QDAY #30 tablet 05/16/20 Unknown Rx Metoprolol [Lopressor TAB] 25 mg PO BID #60 tablet 05/16/20 Unknown Rx Pravastatin [Pravachol] 20 mg PO QHS #30 tablet 05/16/20 Unknown Rx Folic Acid [Folvite] 1 mg PO QDAY #30 tablet 08/14/20 Unknown Rx Multivitamin with Folic Acid [Cvs 400 mcg PO QDAY #30 tablet 08/14/20 Unknown Rx One Daily Essential Tablet] Thiamine [Vitamin B-1] 100 mg PO QDAY #30 tablet 08/14/20 Unknown Rx Ondansetron [Zofran ODT TAB] 4 mg PO Q8HR #14 tab.rapdis 09/10/20 Unknown Rx Pantoprazole [Protonix TAB] 40 mg PO QDAY #30 tablet 09/10/20 Unknown Rx Naproxen [Naprosyn] 500 mg PO BID #14 tablet 09/17/20 Unknown Rx Esomeprazole Magnesium [NexIUM] 40 mg PO QDAY #30 capsule.dr 11/23/20 Unknown Rx Naproxen [Naprosyn] 500 mg PO BID #14 tablet 12/17/20 Unknown Rx Ondansetron [Zofran ODT TAB] 4 mg PO Q8HR PRN #10 tab.rapdis 12/23/20 Unknown Rx Albuterol Mdi (or & Nicu Only) 2 puff IH QID PRN #8.5 gram 01/26/21 Unknown Rx [ProAir HFA Inhaler] Albuterol Sulfate [Proventil Hfa] 6.7 gm IH Q4HR #1 05/24/21 Unknown Rx Benzonatate [Tessalon Perles] 100 mg PO Q8HR #21 cap 05/24/21 Unknown Rx methylPREDNISolone [Medrol 4MG 4 mg PO ONCE #1 05/24/21 Unknown Rx DOSEPAK (21 tabs)] Ondansetron [Zofran Odt] 4 mg PO Q8HR #10 tab.rapdis 06/09/21 Unknown Rx ED Physical Exam - General Limitations: No Limitations General appearance: alert, in no apparent distress - Head Head exam: Present: atraumatic, normocephalic - Eye Eye exam: Present: normal appearance, conjunctival injection. Absent: scleral icterus - ENT ENT exam: Present: mucous membranes moist - Neck Neck exam: Present: normal inspection - Respiratory Respiratory exam: Present: normal lung sounds bilaterally. Absent: respiratory distress, wheezes, rales, rhonchi - Cardiovascular Cardiovascular Exam: Present: regular rate, normal rhythm, normal heart sounds. Absent: systolic murmur, diastolic murmur, rubs, gallop - GI/Abdominal GI/Abdominal exam: Present: soft, normal bowel sounds. Absent: distended, tenderness, guarding, rebound - Rectal Rectal exam: Present: deferred - Extremities Exam Extremities exam: Present: normal inspection - Back Exam Back exam: Present: normal inspection - Neurological Exam Neurological exam: Present: alert, oriented X3 - Psychiatric Psychiatric exam: Present: normal affect, normal mood - Skin Skin exam: Present: warm, dry, intact, normal color. Absent: rash ED Course Vital Signs 06/11/21 00:17 Pulse Rate 111 H Respiratory 18 Rate O2 Sat by Pulse 98 Oximetry ED Medical Decision Making - Medical Decision Making PUD: dc'd aron Critical care attestation.: If time is entered above; I have spent that time in minutes in the direct care of this critically ill patient, excluding procedure time. ED Disposition Clinical Impression: PUD (peptic ulcer disease) Disposition: HOME / SELF CARE / HOMELESS Is pt being admited?: No Does the pt Need Aspirin: No Condition: Stable Instructions: Peptic Ulcer, [id number]
[2021-06-11 07:04] VITALS: BP 115/75
== END 2021-06-11 06:59 | disposition home or self-care (01) ==
LOC: ED 00:15
DX: K27.9 Peptic ulcer, site unspecified, unspecified as acute or chronic, without hemorrhage or perforation (principal)
CPT/HCPCS: 99282

== ENCOUNTER 2021-06-24 22:37 | Emergency (ER) | payer MEDICAID ==
--- NOTE | 2021-06-25 05:31 | XRay Report ---
CHEST 2 VIEWS INDICATION / CLINICAL INFORMATION: sob all day. COMPARISON: Chest x-ray 06/08/2021 FINDINGS: SUPPORT DEVICES: None. HEART / MEDIASTINUM: No significant abnormality. LUNGS / PLEURA: Discoid atelectasis left lung base otherwise clear lungs. No pneumothorax. BONES: Lateral right rib deformities stable. No interval acute osseous findings. ADDITIONAL FINDINGS: No significant additional findings. IMPRESSION: 1. Stable appearance of the chest. No active cardiopulmonary process. Signer Name: Aron Mesa II, MD Signed: 06/25/2021 5:27 AM Workstation Name: [id number]
--- NOTE | 2021-06-25 06:17 | Emergency Department Report ---
ED General Adult HPI - General Chief complaint: Dyspnea/Respdistress Stated complaint: SOB Time Seen by Provider: 06/25/21 05:49 Source: patient Mode of arrival: Ambulatory Limitations: No Limitations - History of Present Illness Initial comments: 60-year-old male who reports having had a history of rib fractures about 2 to 3 weeks ago after slip and fall. This was well complaining of shortness of breath with occasional pain. He still feels that he takes a deep breath. No hemoptysis no hematemesis no fever, chills, sweats. No nausea vomiting. Radiation: non-radiation Quality: dull Consistency: constant Improves with: none Associated Symptoms: denies other symptoms Treatments Prior to Arrival: none - Related Data Previous Rx's Medication Instructions Recorded Last Taken Type Aspirin 325 mg PO QDAY #30 tablet 10/23/19 Unknown Rx Metoprolol [Lopressor TAB] 25 mg PO BID #60 tablet 10/23/19 Unknown Rx Aspirin 325 mg PO QDAY #30 tablet 05/16/20 Unknown Rx Metoprolol [Lopressor TAB] 25 mg PO BID #60 tablet 05/16/20 Unknown Rx Pravastatin [Pravachol] 20 mg PO QHS #30 tablet 05/16/20 Unknown Rx Folic Acid [Folvite] 1 mg PO QDAY #30 tablet 08/14/20 Unknown Rx Multivitamin with Folic Acid [Cvs 400 mcg PO QDAY #30 tablet 08/14/20 Unknown Rx One Daily Essential Tablet] Thiamine [Vitamin B-1] 100 mg PO QDAY #30 tablet 08/14/20 Unknown Rx Ondansetron [Zofran ODT TAB] 4 mg PO Q8HR #14 tab.rapdis 09/10/20 Unknown Rx Pantoprazole [Protonix TAB] 40 mg PO QDAY #30 tablet 09/10/20 Unknown Rx Naproxen [Naprosyn] 500 mg PO BID #14 tablet 09/17/20 Unknown Rx Esomeprazole Magnesium [NexIUM] 40 mg PO QDAY #30 capsule. 11/23/20 Unknown Rx Naproxen [Naprosyn] 500 mg PO BID #14 tablet 12/17/20 Unknown Rx Ondansetron [Zofran ODT TAB] 4 mg PO Q8HR PRN #10 tab.rapdis 12/23/20 Unknown Rx Albuterol Mdi (or & Nicu Only) 2 puff IH QID PRN #8.5 gram 01/26/21 Unknown Rx [ProAir HFA Inhaler] Albuterol Sulfate [Proventil Hfa] 6.7 gm IH Q4HR #1 05/24/21 Unknown Rx Benzonatate [Tessalon Perles] 100 mg PO Q8HR #21 cap 05/24/21 Unknown Rx methylPREDNISolone [Medrol 4MG 4 mg PO ONCE #1 05/24/21 Unknown Rx DOSEPAK (21 tabs)] Ondansetron [Zofran Odt] 4 mg PO Q8HR #10 tab.rapdis 06/09/21 Unknown Rx Allergies Allergy/AdvReac Type Severity Reaction Status Date / Time No Known Allergies Allergy Verified 09/17/20 07:29 ED Review of Systems ROS: Stated complaint: SOB Other details as noted in HPI Comment: All other systems reviewed and negative ED Past Medical Hx - Past Medical History Hx Hypertension: Yes Hx CVA: Yes (left) Hx Heart Attack/AMI: Yes Hx Congestive Heart Failure: No Hx Diabetes: No Hx Asthma: No Hx COPD: No Hx HIV: No Additional medical history: chronic pain in back, neck and L knee, ETOH abuse. herniated disc - Surgical History Hx Appendectomy: Yes Additional Surgical History: Left Knee. skin graft to right hand, left hip surgery - Social History Smoking Status: Unknown if ever smoked - Medications Home Medications: Home Medications Medication Instructions Recorded Confirmed Last Taken Type Aspirin 325 mg PO QDAY #30 tablet 10/23/19 Unknown Rx Metoprolol [Lopressor TAB] 25 mg PO BID #60 tablet 10/23/19 Unknown Rx Aspirin 325 mg PO QDAY #30 tablet 05/16/20 Unknown Rx Metoprolol [Lopressor TAB] 25 mg PO BID #60 tablet 05/16/20 Unknown Rx Pravastatin [Pravachol] 20 mg PO QHS #30 tablet 05/16/20 Unknown Rx Folic Acid [Folvite] 1 mg PO QDAY #30 tablet 08/14/20 Unknown Rx Multivitamin with Folic Acid [Cvs 400 mcg PO QDAY #30 tablet 08/14/20 Unknown Rx One Daily Essential Tablet] Thiamine [Vitamin B-1] 100 mg PO QDAY #30 tablet 08/14/20 Unknown Rx Ondansetron [Zofran ODT TAB] 4 mg PO Q8HR #14 tab.rapdis 09/10/20 Unknown Rx Pantoprazole [Protonix TAB] 40 mg PO QDAY #30 tablet 09/10/20 Unknown Rx Naproxen [Naprosyn] 500 mg PO BID #14 tablet 09/17/20 Unknown Rx Esomeprazole Magnesium [NexIUM] 40 mg PO QDAY #30 capsule. 11/23/20 Unknown Rx Naproxen [Naprosyn] 500 mg PO BID #14 tablet 12/17/20 Unknown Rx Ondansetron [Zofran ODT TAB] 4 mg PO Q8HR PRN #10 tab.rapdis 12/23/20 Unknown Rx Albuterol Mdi (or & Nicu Only) 2 puff IH QID PRN #8.5 gram 01/26/21 Unknown Rx [ProAir HFA Inhaler] Albuterol Sulfate [Proventil Hfa] 6.7 gm IH Q4HR #1 05/24/21 Unknown Rx Benzonatate [Tessalon Perles] 100 mg PO Q8HR #21 cap 05/24/21 Unknown Rx methylPREDNISolone [Medrol 4MG 4 mg PO ONCE #1 05/24/21 Unknown Rx DOSEPAK (21 tabs)] Ondansetron [Zofran Odt] 4 mg PO Q8HR #10 tab.rapdis 06/09/21 Unknown Rx ED Physical Exam - General Limitations: No Limitations General appearance: alert, in no apparent distress - Head Head exam: Present: atraumatic, normocephalic - Eye Eye exam: Present: normal appearance, EOMI Pupils: Present: normal accommodation - ENT ENT exam: Present: normal exam, mucous membranes moist. Absent: normal orophraynx - Neck Neck exam: Present: normal inspection - Respiratory Respiratory exam: Present: normal lung sounds bilaterally. Absent: respiratory distress - Cardiovascular Cardiovascular Exam: Present: regular rate, normal rhythm. Absent: systolic murmur, diastolic murmur, rubs, gallop - GI/Abdominal GI/Abdominal exam: Present: soft, normal bowel sounds - Rectal Rectal exam: Present: deferred - Extremities Exam Extremities exam: Present: normal inspection - Back Exam Back exam: Present: normal inspection - Neurological Exam Neurological exam: Present: alert, oriented X3 - Psychiatric Psychiatric exam: Present: normal affect, normal mood - Skin Skin exam: Present: warm, dry, intact, normal color. Absent: rash ED Course Vital Signs 06/24/21 23:01 Temperature 98.0 F Pulse Rate 100 H Respiratory 18 Rate Blood Pressure 122/84 O2 Sat by Pulse 97 Oximetry ED Medical Decision Making - Radiology Data Radiology results: report reviewed Chest x-ray is no acute process [facility] [address] [place] [address] XRay Report Signed Patient: REBECCA ELIZABETH MR#: [id number] : 1960 Acct:[id number] Age/Sex: 60 / M ADM Date: 06/24/21 Loc: ED Attending Dr: Ordering Physician: MERVAT KESSLER Date of Service: 06/25/21 Procedure(s): XR chest routine 2V Accession Number(s): [id number] cc: MERVAT KESSLER Fluoro Time In Minutes: CHEST 2 VIEWS INDICATION / CLINICAL INFORMATION: sob all day. COMPARISON: Chest x-ray 06/08/2021 FINDINGS: SUPPORT DEVICES: None. HEART / MEDIASTINUM: No significant abnormality. LUNGS / PLEURA: Discoid atelectasis left lung base otherwise clear lungs. No pneumothorax. BONES: Lateral right rib deformities stable. No interval acute osseous findings. ADDITIONAL FINDINGS: No significant additional findings. IMPRESSION: 1. Stable appearance of the chest. No active cardiopulmonary process. Signer Name: Rahat Ordoñez II, MD Signed: 06/25/2021 5:27 AM Workstation Name: [id number] Transcribed By: ECTOR Dictated By: RAHAT ORDOÑEZ II, MD Electronically Authenticated By: RAHAT ORDOÑEZ II, MD Signed Date/Time: 06/25/21526 DD/ 4 TD/TT: Print Cancel Critical care attestation.: If time is entered above; I have spent that time in minutes in the direct care of this critically ill patient, excluding procedure time. ED Disposition Clinical Impression: Dyspnea Disposition: 01 HOME / SELF CARE / HOMELESS Is pt being admited?: No Does the pt Need Aspirin: No Condition: Stable Referrals: PRIMARY CARE, [Primary Care Provider] - 3-5 Days
[2021-06-25 07:48] VITALS: BP 120/86
== END 2021-06-25 07:50 | disposition home or self-care (01) ==
LOC: ED 22:37
DX: R06.00 Dyspnea, unspecified (principal); I10 Essential (primary) hypertension; Z90.89 Acquired absence of other organs
CPT/HCPCS: 71046; 99283

== ENCOUNTER 2021-06-25 22:30 | Emergency (ER) | payer MEDICAID ==
[2021-06-25 22:40] VITALS: BP 117/75
[2021-06-25 23:24] LABS: Basophils % (Auto) 1.1 % (0.0-1.8); Eosinophils # (Auto) 0.1 K/mm3 (0.0-0.4); Eosinophils % (Auto) 2.2 % (0.0-4.3); Hematocrit 35.9 % (35.5-45.6); Hemoglobin 11.6 gm/dl (11.8-15.2); Lymphocytes # (Auto) 1.4 K/mm3 (1.2-5.4); Lymphocytes % (Auto) 32.9 % (13.4-35.0); Mean Corpuscular HGB Conc 32 % (32-34); Mean Corpuscular Volume 82 fl (84-94); Monocytes # (Auto) 0.6 K/mm3 (0.0-0.8); Monocytes % (Auto) 14.3 % (0.0-7.3); Platelet Count 211 K/mm3 (140-440); Red Blood Count 4.36 M/mm3 (3.65-5.03)
[2021-06-25 23:35] LABS: Red Cell Distribution Width 20.4 % (13.2-15.2)
[2021-06-25 23:43] LABS: Alanine Aminotransferase 18 units/L (7-56); Albumin 4.3 g/dL (3.9-5); Blood Urea Nitrogen 11 mg/dL (9-20); Calcium 8.6 mg/dL (8.4-10.2); Hemolysis Index 6
[2021-06-25 23:46] LABS: BUN/Creatinine Ratio 18
--- NOTE | 2021-06-25 23:57 | XRay Report ---
CHEST 2 VIEWS INDICATION / CLINICAL INFORMATION: CP, SOB. COMPARISON: Chest x-ray 06/25/2021 FINDINGS: SUPPORT DEVICES: None. HEART / MEDIASTINUM: No significant abnormality. LUNGS / PLEURA: No significant pulmonary or pleural abnormality. Stable discoid atelectasis left lung base. No pneumothorax. BONES: Stable appearance of lateral rib cage lower right chest. ADDITIONAL FINDINGS: No significant additional findings. IMPRESSION: 1. Stable interval appearance of the chest. No interval acute findings. Signer Name: Aron Mesa II, MD Signed: 06/25/2021 11:52 PM Workstation Name: [id number]
--- NOTE | 2021-06-26 11:33 | Electrocardiograph Report ---
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
== END 2021-06-26 14:37 | disposition left against medical advice (07) ==
LOC: ED 22:30
DX: R07.9 Chest pain, unspecified (principal); Z53.21 Procedure and treatment not carried out due to patient leaving prior to being seen by health care provider
CPT/HCPCS: 36415; 71046; 80053; 80320; 84484; 85025; 93005; G0480

== ENCOUNTER 2021-06-29 21:32 | Emergency (ER) | payer MEDICAID ==
[2021-06-29 21:50] VITALS: BP 122/82
== END 2021-06-30 08:35 | disposition left against medical advice (07) ==
LOC: ED 21:32
DX: R06.02 Shortness of breath (principal); Z53.21 Procedure and treatment not carried out due to patient leaving prior to being seen by health care provider

== ENCOUNTER 2021-06-30 22:52 | Emergency (ER) | payer MEDICAID | END 2021-07-01 07:48 | disposition left against medical advice (07) | LOC: ED 22:52 | DX: R06.02 Shortness of breath (principal); Z53.21 Procedure and treatment not carried out due to patient leaving prior to being seen by health care provider; R07.9 Chest pain, unspecified ==

== ENCOUNTER 2021-07-01 23:50 | Emergency (ER) | payer MEDICAID ==
[2021-07-02 05:01] LABS: Hemoglobin 10.8 gm/dl (11.8-15.2); Mean Corpuscular HGB Conc 33 % (32-34); Mean Corpuscular Volume 81 fl (84-94); Platelet Count 333 K/mm3 (140-440); Red Blood Count 4.07 M/mm3 (3.65-5.03)
[2021-07-02 05:05] LABS: Red Cell Distribution Width 20.1 % (13.2-15.2)
[2021-07-02 05:11] LABS: INR 0.92 (0.87-1.13)
[2021-07-02 05:12] LABS: Partial Thromboplastin Time 30.6 Sec. (24.2-36.6)
[2021-07-02 05:21] LABS: Blood Urea Nitrogen 5 mg/dL (9-20); Calcium 8.8 mg/dL (8.4-10.2); Hemolysis Index 10
[2021-07-02 05:23] LABS: BUN/Creatinine Ratio 8
--- NOTE | 2021-07-02 05:30 | XRay Report ---
CHEST 1 VIEW 07/02/2021 4:20 AM INDICATION / CLINICAL INFORMATION: Chest Pain;Pt reports CP and SOB of and on for 1 day. . COMPARISON: 2 views of the chest from 06/25/2021. FINDINGS: SUPPORT DEVICES: None. HEART / MEDIASTINUM: No significant abnormality. LUNGS / PLEURA: No significant pulmonary abnormality. No significant pleural effusion. No pneumothora x. ADDITIONAL FINDINGS: No significant additional findings. IMPRESSION: 1. No acute abnormality of the chest. Signer Name: Elbert Craig MD Signed: 07/02/2021 5:26 AM Workstation Name: [id number]
[2021-07-02 06:28] LABS: Anisocytosis 1+; Basophils % (Manual) 0 % (0.0-1.8); Total Cells Counted 100
[2021-07-02 06:29] LABS: Hypochromasia 1+; Platelet Estimate Consistent w Auto; Target Cells Few
[2021-07-02 06:31] VITALS: BP 121/77
--- NOTE | 2021-07-02 06:47 | Emergency Department Report ---
ED General Adult HPI - General Chief complaint: Chest Pain Stated complaint: CHEST PAIN/SOB Time Seen by Provider: 07/02/21 06:07 Source: patient, RN notes reviewed, old records reviewed Mode of arrival: Ambulatory Limitations: No Limitations - History of Present Illness Initial comments: The patient is a 60-year-old gentleman who is a frequent utilizer of the emergency room, presenting to the ER today with complaint of nontraumatic nonexertional chest pressure and discomfort for the past few days. He does not describe radiation to the back, arms or neck, and he makes no complaint of vomiting, diaphoresis or exertional shortness of breath. The patient is not homicidal or suicidal. The patient reports his last consumption of alcohol was a few days ago. The patient reports that he typically stays with family members. This patient typically presents to the emergency room with complaints of nonspecific chest discomfort. Has had multiple cardiac evaluations in this emergency room, all of which have been negative for significant troponin leak. -: days(s) Location: chest Severity scale (0 -10): 0 Consistency: intermittent Improves with: none Worsens with: none - Related Data Previous Rx's Medication Instructions Recorded Last Taken Type Aspirin 325 mg PO QDAY #30 tablet 10/23/19 Unknown Rx Metoprolol [Lopressor TAB] 25 mg PO BID #60 tablet 10/23/19 Unknown Rx Aspirin 325 mg PO QDAY #30 tablet 05/16/20 Unknown Rx Metoprolol [Lopressor TAB] 25 mg PO BID #60 tablet 05/16/20 Unknown Rx Pravastatin [Pravachol] 20 mg PO QHS #30 tablet 05/16/20 Unknown Rx Folic Acid [Folvite] 1 mg PO QDAY #30 tablet 08/14/20 Unknown Rx Multivitamin with Folic Acid [Cvs 400 mcg PO QDAY #30 tablet 08/14/20 Unknown Rx One Daily Essential Tablet] Thiamine [Vitamin B-1] 100 mg PO QDAY #30 tablet 08/14/20 Unknown Rx Ondansetron [Zofran ODT TAB] 4 mg PO Q8HR #14 tab.rapdis 09/10/20 Unknown Rx Pantoprazole [Protonix TAB] 40 mg PO QDAY #30 tablet 09/10/20 Unknown Rx Naproxen [Naprosyn] 500 mg PO BID #14 tablet 09/17/20 Unknown Rx Esomeprazole Magnesium [NexIUM] 40 mg PO QDAY #30 capsule. 11/23/20 Unknown Rx Naproxen [Naprosyn] 500 mg PO BID #14 tablet 12/17/20 Unknown Rx Ondansetron [Zofran ODT TAB] 4 mg PO Q8HR PRN #10 tab.rapdis 12/23/20 Unknown Rx Albuterol Mdi (or & Nicu Only) 2 puff IH QID PRN #8.5 gram 01/26/21 Unknown Rx [ProAir HFA Inhaler] Albuterol Sulfate [Proventil Hfa] 6.7 gm IH Q4HR #1 05/24/21 Unknown Rx Benzonatate [Tessalon Perles] 100 mg PO Q8HR #21 cap 05/24/21 Unknown Rx methylPREDNISolone [Medrol 4MG 4 mg PO ONCE #1 05/24/21 Unknown Rx DOSEPAK (21 tabs)] Ondansetron [Zofran Odt] 4 mg PO Q8HR #10 tab.rapdis 06/09/21 Unknown Rx Allergies Allergy/AdvReac Type Severity Reaction Status Date / Time No Known Allergies Allergy Verified 09/17/20 07:29 ED Review of Systems ROS: Stated complaint: CHEST PAIN/SOB Other details as noted in HPI Constitutional: denies: fever Respiratory: denies: wheezing Cardiovascular: chest pain Gastrointestinal: denies: abdominal pain Psychiatric: denies: homicidal thoughts, suicidal thoughts ED Past Medical Hx - Past Medical History Previous Medical History?: Yes Hx Hypertension: Yes Hx CVA: Yes (left) Hx Heart Attack/AMI: Yes Hx Congestive Heart Failure: No Hx Diabetes: No Hx Asthma: No Hx COPD: No Hx HIV: No Additional medical history: chronic pain in back, neck and L knee, ETOH abuse. herniated disc - Surgical History Past Surgical History?: Yes Hx Appendectomy: Yes Additional Surgical History: Left Knee. skin graft to right hand, left hip surgery - Social History Smoking Status: Unknown if ever smoked Substance Use Type: None - Medications Home Medications: Home Medications Medication Instructions Recorded Confirmed Last Taken Type Aspirin 325 mg PO QDAY #30 tablet 10/23/19 Unknown Rx Metoprolol [Lopressor TAB] 25 mg PO BID #60 tablet 10/23/19 Unknown Rx Aspirin 325 mg PO QDAY #30 tablet 05/16/20 Unknown Rx Metoprolol [Lopressor TAB] 25 mg PO BID #60 tablet 05/16/20 Unknown Rx Pravastatin [Pravachol] 20 mg PO QHS #30 tablet 05/16/20 Unknown Rx Folic Acid [Folvite] 1 mg PO QDAY #30 tablet 08/14/20 Unknown Rx Multivitamin with Folic Acid [Cvs 400 mcg PO QDAY #30 tablet 08/14/20 Unknown Rx One Daily Essential Tablet] Thiamine [Vitamin B-1] 100 mg PO QDAY #30 tablet 08/14/20 Unknown Rx Ondansetron [Zofran ODT TAB] 4 mg PO Q8HR #14 tab.rapdis 09/10/20 Unknown Rx Pantoprazole [Protonix TAB] 40 mg PO QDAY #30 tablet 09/10/20 Unknown Rx Naproxen [Naprosyn] 500 mg PO BID #14 tablet 09/17/20 Unknown Rx Esomeprazole Magnesium [NexIUM] 40 mg PO QDAY #30 capsule. 11/23/20 Unknown Rx Naproxen [Naprosyn] 500 mg PO BID #14 tablet 12/17/20 Unknown Rx Ondansetron [Zofran ODT TAB] 4 mg PO Q8HR PRN #10 tab.rapdis 12/23/20 Unknown Rx Albuterol Mdi (or & Nicu Only) 2 puff IH QID PRN #8.5 gram 01/26/21 Unknown Rx [ProAir HFA Inhaler] Albuterol Sulfate [Proventil Hfa] 6.7 gm IH Q4HR #1 05/24/21 Unknown Rx Benzonatate [Tessalon Perles] 100 mg PO Q8HR #21 cap 05/24/21 Unknown Rx methylPREDNISolone [Medrol 4MG 4 mg PO ONCE #1 05/24/21 Unknown Rx DOSEPAK (21 tabs)] Ondansetron [Zofran Odt] 4 mg PO Q8HR #10 tab.rapdis 06/09/21 Unknown Rx ED Physical Exam - General Limitations: No Limitations General appearance: alert, in no apparent distress - Head Head exam: Present: atraumatic, normocephalic - Eye Eye exam: Present: normal appearance, EOMI. Absent: nystagmus - ENT ENT exam: Present: normal exam, normal orophraynx, mucous membranes moist, normal external ear exam - Neck Neck exam: Present: normal inspection, full ROM. Absent: tenderness, meningismus - Respiratory Respiratory exam: Present: normal lung sounds bilaterally. Absent: respiratory distress, wheezes, rales, rhonchi, stridor, decreased breath sounds - Cardiovascular Cardiovascular Exam: Present: regular rate, normal rhythm, normal heart sounds. Absent: bradycardia, tachycardia, irregular rhythm, systolic murmur, diastolic murmur, rubs, gallop - GI/Abdominal GI/Abdominal exam: Present: soft. Absent: distended, tenderness, guarding, rebound, rigid, pulsatile mass - Rectal Rectal exam: Present: deferred - Extremities Exam Extremities exam: Present: full ROM, pedal edema (1+ edema in the bilateral lower extremity), other (2+ pulses noted in the bilateral upper and lower extremities. There is no palpable cord. negative Homans sign. Muscular compartments are soft. The pelvis is stable.). Absent: calf tenderness - Back Exam Back exam: Present: normal inspection. Absent: tenderness, CVA tenderness (R), CVA tenderness (L), paraspinal tenderness, vertebral tenderness - Neurological Exam Neurological exam: Present: alert, oriented X3, other (No facial droop. Tongue midline. Extraocular movements intact bilaterally. Facial sensation intact to light touch in V1, V2, V3 distribution bilaterally. 5 and a 5 strength in 4 extremities. Sensation intact to light touch in 4 extremities.). Absent: motor sensory deficit - Psychiatric Psychiatric exam: Present: normal affect, normal mood. Absent: homicidal ideation, suicidal ideation - Skin Skin exam: Present: warm, dry, intact, normal color. Absent: rash ED Course Vital Signs 07/02/21 07/02/21 07/02/21 02:29 04:04 06:30 Temperature 97.6 F Pulse Rate 95 H 86 Respiratory 18 16 Rate Blood Pressure 147/113 Blood Pressure 121/77 [Left] O2 Sat by Pulse 99 96 98 Oximetry ED Medical Decision Making - Lab Data Result diagrams: 07/02/21 04:45 07/02/21 04:45 Vital Signs 07/02/21 07/02/21 07/02/21 02:29 04:04 06:30 Temperature 97.6 F Pulse Rate 95 H 86 Respiratory 18 16 Rate Blood Pressure 147/113 Blood Pressure 121/77 [Left] O2 Sat by Pulse 99 96 98 Oximetry Lab Results 04/25/22 04/25/22 04/25/22 Range/Units 04:45 04:45 04:45 WBC 3.0 L (4.5-11.0) K/mm3 RBC 4.07 (3.65-5.03) M/mm3 Hgb 10.8 L (11.8-15.2) gm/dl Hct 33.0 L (35.5-45.6) % MCV 81 L (84-94) fl MCH 27 L (28-32) pg MCHC 33 (32-34) % RDW 20.1 H (13.2-15.2) % Plt Count 333 (140-440) K/mm3 Add Manual Diff Complete Total Counted 100 Seg Neutrophils % Ict Sales Representative Seg Neuts % (Manual) 48.0 (40.0-70.0) % Band Neutrophils % 0 % Lymphocytes % (Manual) 47.0 H (13.4-35.0) % Reactive Lymphs % (Man) 0 % Monocytes % (Manual) 2.0 (0.0-7.3) % Eosinophils % (Manual) 3.0 (0.0-4.3) % Basophils % (Manual) 0 (0.0-1.8) % Metamyelocytes % 0 % Myelocytes % 0 % Promyelocytes % 0 % Blast Cells % 0 % Nucleated RBC % Not Reportable Seg Neutrophils # Man 1.4 L (1.8-7.7) K/mm3 Band Neutrophils # 0.0 K/mm3 Lymphocytes # (Manual) 1.4 (1.2-5.4) K/mm3 Abs React Lymphs (Man) 0.0 K/mm3 Monocytes # (Manual) 0.1 (0.0-0.8) K/mm3 Eosinophils # (Manual) 0.1 (0.0-0.4) K/mm3 Basophils # (Manual) 0.0 (0.0-0.1) K/mm3 Metamyelocytes # 0.0 K/mm3 Myelocytes # 0.0 K/mm3 Promyelocytes # 0.0 K/mm3 Blast Cells # 0.0 K/mm3 WBC Morphology Not Reportable Hypersegmented Neuts Not Reportable Hyposegmented Neuts Not Reportable Hypogranular Neuts Not Reportable Smudge Cells Not Reportable Toxic Granulation Not Reportable Toxic Vacuolation Not Reportable Dohle Bodies Not Reportable Pelger-Huet Anomaly Not Reportable Katie Rods Not Reportable Platelet Estimate Consistent w auto Clumped Platelets Not Reportable Plt Clumps, EDTA Not Reportable Large Platelets Not Reportable Giant Platelets Not Reportable Platelet Satelliting Not Reportable Plt Morphology Comment Not Reportable RBC Morphology Not Reportable Dimorphic RBCs Not Reportable Polychromasia Not Reportable Hypochromasia 1+ Poikilocytosis Not Reportable Anisocytosis 1+ Microcytosis Not Reportable Macrocytosis Not Reportable Spherocytes Not Reportable Pappenheimer Bodies Not Reportable Sickle Cells Not Reportable Target Cells Few Tear Drop Cells Not Reportable Ovalocytes Not Reportable Helmet Cells Not Reportable [place] Bodies Not Reportable [place] Rings Not Reportable Lisa Cells Not Reportable Bite Cells Not Reportable Crenated Cell Not Reportable Elliptocytes Not Reportable Acanthocytes (Spur) Not Reportable Rouleaux Not Reportable Hemoglobin C Crystals Not Reportable Schistocytes Not Reportable Malaria parasites Not Reportable Connor Bodies Not Reportable Hem Pathologist Commnt No PT 13.3 (12.2-14.9) Sec. INR 0.92 (0.87-1.13) APTT 30.6 (24.2-36.6) Sec. Sodium 140 (137-145) mmol/L Potassium 4.0 (3.6-5.0) mmol/L Chloride 101.3 (98-107) mmol/L Carbon Dioxide 24 (22-30) mmol/L Anion Gap 19 mmol/L BUN 5 L (9-20) mg/dL Creatinine 0.6 L (0.8-1.3) mg/dL Estimated GFR > 60 ml/min BUN/Creatinine Ratio 8 % Glucose 105 H (75-100) mg/dL Calcium 8.8 (8.4-10.2) mg/dL Troponin T < 0.010 (0.00-0.029) ng/mL - EKG Data -: EKG Interpreted by Vt EKG shows normal: sinus rhythm Rate: normal - EKG Data Interpretation: unchanged when compared t (June 2021) 07/02/21 06:49 The EKG is interpreted at 02: 34 Motion artifact. Sinus rhythm, 88 bpm. Normal axis, normal P wave axis, left ventricular hypertrophy, IN interval 208 ms, and motion artifact. This is an abnormal EKG. This is not a STEMI - Radiology Data Radiology results: pending, report reviewed, image reviewed CHEST 1 VIEW 07/02/2021 4:20 AM INDICATION / CLINICAL INFORMATION: Chest Pain;Pt reports CP and SOB of and on for 1 day. . COMPARISON: 2 views of the chest f rom 06/25/2021. FINDINGS: SUPPORT DEVICES: None. HEART / MEDIASTINUM: No significant abnormality. LUNGS / PLEURA: No significant pulmonary abnormality. No significant pleural effusion. No pneumothorax. ADDITIONAL FINDINGS: No significant additional findings. IMPRESSION: 1. No acute abnormality of the chest. Signer Name: Elbert Craig MD Signed: 07/02/2021 4:26 AM Workstation Name: [id number] - Medical Decision Making Differential diagnosis, including not limited to: GERD, gastritis, hiatal hernia, costochondritis, alcohol abuse Assessment and plan: 60-year-old gentleman, who is not currently tachycardic, tachypneic or hypoxic, has no pulsatile abdominal mass, has equal pulses in upper and lower extremities, EKG unchanged from prior, troponin negative x1 in the context of days of symptoms, acute myocardial infarction is ruled out. Patient presents this department frequently for nonspecific chest discomfort. His objective laboratory evaluation in terms of cardiac restratification has been unremarkable. On my assessment he is resting comfortably in his stretcher, in no acute distress, clinically sober, and does not meet criteria for 1013 hold or involuntary confinement. He does not appear to have an emergent medical condition present at this time. Advised to discontinue/abstain from alcohol consumption. He may follow-up with an outpatient primary care doctor or health department, for his chronic issues which do not appear to be acutely decompensated at this time Critical care attestation.: If time is entered above; I have spent that time in minutes in the direct care of this critically ill patient, excluding procedure time. ED Disposition Clinical Impression: Nonspecific chest pain Disposition: 01 HOME / SELF CARE / HOMELESS Is pt being admited?: No Does the pt Need Aspirin: No Condition: Good Instructions: Nonspecific Chest Pain, Adult Additional Instructions: Avoid consumption of alcohol, tobacco, smoke products, Motrin, ibuprofen, Naprosyn, Aleve. Patient may take [id number] Tylenol, Pepcid or Protonix as needed for physical pain, consume plenty of fiber, vegetables and lean protein, also recommend that patient take a multivitamin on a daily basis [id number], and also recommend that the patient follow-up with a primary care doctor, health department or datapower consultant for nonspecific chest pain within the next week. Please return to the emergency room right away with new pain, worsened pain, migration of pain, projectile vomiting, change in mental status, confusion, inability tolerate liquid feeds, new, worsened or different symptoms not present on the initial emergency room evaluation Referrals: [facility] [Provider Group] - 3-5 Days [facility] [Provider Group] - 3-5 Days [facility] [Outside] - 3-5 Days Heart Score - HEART Score History: Slightly suspicious EKG: Non-specific Age: 45-65 Risk factors: 1-2 risk factors Troponin: < normal limit HEART Score: 3 - EKG Read Time Time EKG Completed: 02:34 EKG Read Time: 02:34 - Critical Actions Critical Actions: 0-3 pts:0.9-1.7%risk of adverse cardiac event.Candidate for discharge
[2021-07-02] MEDS ORDERED: PANTOPRAZOLE 40 MG TAB PO ONE (06:50)
--- NOTE | 2021-07-04 17:43 | Electrocardiograph Report ---
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
== END 2021-07-02 07:40 | disposition home or self-care (01) ==
LOC: ED 23:50
DX: R07.9 Chest pain, unspecified (principal); Z90.89 Acquired absence of other organs; I10 Essential (primary) hypertension; Z86.73 Personal history of transient ischemic attack (TIA), and cerebral infarction without residual deficits
CPT/HCPCS: 36415; 71045; 80048; 84484; 85007; 85025; 85610; 85730; 93005; 99283

== ENCOUNTER 2021-07-02 22:49 | Emergency (ER) | payer MEDICAID ==
[2021-07-02 23:26] VITALS: BP 110/83
--- NOTE | 2021-07-04 17:53 | Electrocardiograph Report ---
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
== END 2021-07-03 08:49 | disposition left against medical advice (07) ==
LOC: ED 22:49
DX: R07.89 Other chest pain (principal); Z53.21 Procedure and treatment not carried out due to patient leaving prior to being seen by health care provider
CPT/HCPCS: 93005

== ENCOUNTER 2021-07-03 21:43 | Emergency (ER) | payer MEDICAID ==
[2021-07-03 22:18] VITALS: BP 137/98
--- NOTE | 2021-07-04 18:04 | Electrocardiograph Report ---
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
== END 2021-07-04 06:00 | disposition left against medical advice (07) ==
LOC: ED 21:43
DX: R06.02 Shortness of breath (principal); Z53.21 Procedure and treatment not carried out due to patient leaving prior to being seen by health care provider
CPT/HCPCS: 93005

== ENCOUNTER 2021-07-04 23:37 | Emergency (ER) | payer MEDICAID ==
[2021-07-05] MEDS ORDERED: ASPIRIN 325 MG TAB PO ONE (00:46)
--- NOTE | 2021-07-05 01:14 | XRay Report ---
CHEST 2 VIEWS INDICATION / CLINICAL INFORMATION: chest pain. COMPARISON: One view of the chest from 07/02/2021. FINDINGS: SUPPORT DEVICES: None. HEART / MEDIASTINUM: No significant abnormality. LUNGS / PLEURA: No significant pulmonary abnormality. No significant pleural effusion. No pneumothora x. ADDITIONAL FINDINGS: No significant additional findings. IMPRESSION: 1. No acute abnormality of the chest. Signer Name: Elbert Craig MD Signed: 07/05/2021 1:10 AM Workstation Name: [id number]
[2021-07-05 01:31] LABS: Hematocrit 36.8 % (35.5-45.6); Hemoglobin 11.9 gm/dl (11.8-15.2); Mean Corpuscular HGB Conc 32 % (32-34); Mean Corpuscular Volume 80 fl (84-94); Platelet Count 360 K/mm3 (140-440)
[2021-07-05 01:49] LABS: Alanine Aminotransferase 15 units/L (7-56); Albumin 4.5 g/dL (3.9-5); Blood Urea Nitrogen 6 mg/dL (9-20); Calcium 8.5 mg/dL (8.4-10.2); Hemolysis Index 14
[2021-07-05 01:57] LABS: Red Cell Distribution Width 20.4 % (13.2-15.2)
[2021-07-05 02:00] LABS: BUN/Creatinine Ratio 10
[2021-07-05 04:57] LABS: Anisocytosis 1+; Basophils % (Manual) 0 % (0.0-1.8); Total Cells Counted 100
[2021-07-05 04:59] LABS: Hypochromasia 1+; Target Cells Few
[2021-07-05 05:00] LABS: Platelet Estimate Consistent w Auto
--- NOTE | 2021-07-05 06:43 | Emergency Department Report ---
ED Chest Pain HPI - General Chief Complaint: Chest Pain Stated Complaint: CHEST PAIN/ SOB Time Seen by Provider: 07/05/21 06:35 Source: patient, old records reviewed Mode of arrival: Ambulatory Limitations: No Limitations - History of Present Illness Initial Comments: 60-year-old male with a past medical history of alcohol abuse, and homelessness, non-smoker presents to the hospital with complaints of chest pain and shortness of breath. Pain complains of pain at the sternal area reproducible with palpation and mild shortness of breath. Patient reports that both have improved since ED stay. As per medical record review patient has multiple and frequent ER visits for the same complaints and has had multiple negative troponins, unchanged EKGs, and as per medical record review had a cath performed on October 2019 showing angiographically normal coronary arteries, and a moderate severity nonischemic cardiomyopathy. Recommend medical therapy with guideline directed optimal medical therapy for nonischemic cardiomyopathy. Patient also reports that he has history of left rib fractures and is still experience residual pain. No complaints of nausea, vomiting, diaphoresis, calf tenderness or leg edema - Related Data Previous Rx's Medication Instructions Recorded Last Taken Type Aspirin 325 mg PO QDAY #30 tablet 10/23/19 Unknown Rx Metoprolol [Lopressor TAB] 25 mg PO BID #60 tablet 10/23/19 Unknown Rx Aspirin 325 mg PO QDAY #30 tablet 05/16/20 Unknown Rx Metoprolol [Lopressor TAB] 25 mg PO BID #60 tablet 05/16/20 Unknown Rx Pravastatin [Pravachol] 20 mg PO QHS #30 tablet 05/16/20 Unknown Rx Folic Acid [Folvite] 1 mg PO QDAY #30 tablet 08/14/20 Unknown Rx Multivitamin with Folic Acid [Cvs 400 mcg PO QDAY #30 tablet 08/14/20 Unknown Rx One Daily Essential Tablet] Thiamine [Vitamin B-1] 100 mg PO QDAY #30 tablet 08/14/20 Unknown Rx Ondansetron [Zofran ODT TAB] 4 mg PO Q8HR #14 tab.rapdis 09/10/20 Unknown Rx Pantoprazole [Protonix TAB] 40 mg PO QDAY #30 tablet 09/10/20 Unknown Rx Naproxen [Naprosyn] 500 mg PO BID #14 tablet 09/17/20 Unknown Rx Esomeprazole Magnesium [NexIUM] 40 mg PO QDAY #30 capsule. 11/23/20 Unknown Rx Naproxen [Naprosyn] 500 mg PO BID #14 tablet 12/17/20 Unknown Rx Ondansetron [Zofran ODT TAB] 4 mg PO Q8HR PRN #10 tab.rapdis 12/23/20 Unknown Rx Albuterol Mdi (or & Nicu Only) 2 puff IH QID PRN #8.5 gram 01/26/21 Unknown Rx [ProAir HFA Inhaler] Albuterol Sulfate [Proventil Hfa] 6.7 gm IH Q4HR #1 05/24/21 Unknown Rx Benzonatate [Tessalon Perles] 100 mg PO Q8HR #21 cap 05/24/21 Unknown Rx methylPREDNISolone [Medrol 4MG 4 mg PO ONCE #1 05/24/21 Unknown Rx DOSEPAK (21 tabs)] Ondansetron [Zofran Odt] 4 mg PO Q8HR #10 tab.rapdis 06/09/21 Unknown Rx Allergies Allergy/AdvReac Type Severity Reaction Status Date / Time No Known Allergies Allergy Verified 07/05/21 00:46 Heart Score - HEART Score History: Slightly suspicious EKG: Normal Age: 45-65 Risk factors: 1-2 risk factors Troponin: < normal limit HEART Score: 2 - EKG Read Time Time EKG Completed: 00:44 EKG Read Time: 00:50 ED Review of Systems ROS: Stated complaint: CHEST PAIN/ SOB Other details as noted in HPI Comment: All other systems reviewed and negative ED Past Medical Hx - Past Medical History Previous Medical History?: Yes Hx Hypertension: Yes Hx CVA: Yes (left) Hx Heart Attack/AMI: Yes Hx Congestive Heart Failure: No Hx Diabetes: No Hx Asthma: No Hx COPD: No Hx HIV: No Additional medical history: chronic pain in back, neck and L knee, ETOH abuse. herniated disc - Surgical History Past Surgical History?: Yes Hx Appendectomy: Yes Additional Surgical History: Left Knee. skin graft to right hand, left hip surgery - Social History Smoking Status: Never Smoker Substance Use Type: None - Medications Home Medications: Home Medications Medication Instructions Recorded Confirmed Last Taken Type Aspirin 325 mg PO QDAY #30 tablet 10/23/19 Unknown Rx Metoprolol [Lopressor TAB] 25 mg PO BID #60 tablet 10/23/19 Unknown Rx Aspirin 325 mg PO QDAY #30 tablet 05/16/20 Unknown Rx Metoprolol [Lopressor TAB] 25 mg PO BID #60 tablet 05/16/20 Unknown Rx Pravastatin [Pravachol] 20 mg PO QHS #30 tablet 05/16/20 Unknown Rx Folic Acid [Folvite] 1 mg PO QDAY #30 tablet 08/14/20 Unknown Rx Multivitamin with Folic Acid [Cvs 400 mcg PO QDAY #30 tablet 08/14/20 Unknown Rx One Daily Essential Tablet] Thiamine [Vitamin B-1] 100 mg PO QDAY #30 tablet 08/14/20 Unknown Rx Ondansetron [Zofran ODT TAB] 4 mg PO Q8HR #14 tab.rapdis 09/10/20 Unknown Rx Pantoprazole [Protonix TAB] 40 mg PO QDAY #30 tablet 09/10/20 Unknown Rx Naproxen [Naprosyn] 500 mg PO BID #14 tablet 09/17/20 Unknown Rx Esomeprazole Magnesium [NexIUM] 40 mg PO QDAY #30 capsule. 11/23/20 Unknown Rx Naproxen [Naprosyn] 500 mg PO BID #14 tablet 12/17/20 Unknown Rx Ondansetron [Zofran ODT TAB] 4 mg PO Q8HR PRN #10 tab.rapdis 12/23/20 Unknown Rx Albuterol Mdi (or & Nicu Only) 2 puff IH QID PRN #8.5 gram 01/26/21 Unknown Rx [ProAir HFA Inhaler] Albuterol Sulfate [Proventil Hfa] 6.7 gm IH Q4HR #1 05/24/21 Unknown Rx Benzonatate [Tessalon Perles] 100 mg PO Q8HR #21 cap 05/24/21 Unknown Rx methylPREDNISolone [Medrol 4MG 4 mg PO ONCE #1 05/24/21 Unknown Rx DOSEPAK (21 tabs)] Ondansetron [Zofran Odt] 4 mg PO Q8HR #10 tab.rapdis 06/09/21 Unknown Rx ED Physical Exam - General Limitations: No Limitations - Other Other exam information: General: No acute distress Head: Atraumatic Eyes: normal appearance ENT: Moist mucous membranes Neck: Normal appearance, no midline tenderness Chest: Clear to auscultation bilaterally, reproducible sternal chest wall tenderness CV: Regular rate and rhythm Abdomen: Soft, normal bowel sounds, nontender, nondistended, no rebound or guarding Back: Normal inspection Extremity: Normal inspection, full range of motion, no calf tenderness or leg edema Neuro: Alert O x 3, no facial asymmetry, speech clear, no gross motor sensory deficit Psych: Appropriate behavior Skin: No rash ED Course Vital Signs 07/05/21 07/05/21 00:49 06:50 Temperature 97.6 F Pulse Rate 99 H 90 Respiratory 16 Rate Blood Pressure 132/88 [Right] O2 Sat by Pulse 97 98 Oximetry CHALO score - Chalo Score Age > 65: (0) No Aspirin use within the Past 7 Days: (0) No 3 or more CAD Risk Factors: (1) Yes 2 or more Angina events in past 24 hrs: (0) No Known CAD with more than 50% Stenosis: (0) No Elevated Cardiac Markers: (0) No ST Deviation Greater than 0.5mm: (0) No CHALO Score: 1 ED Medical Decision Making - Lab Data Result diagrams: 07/05/21 01:15 07/05/21 01:15 Lab Results 07/05/21 07/05/21 Range/Units 01:15 01:15 WBC 4.2 L (4.5-11.0) K/mm3 RBC 4.60 (3.65-5.03) M/mm3 Hgb 11.9 (11.8-15.2) gm/dl Hct 36.8 (35.5-45.6) % MCV 80 L (84-94) fl MCH 26 L (28-32) pg MCHC 32 (32-34) % RDW 20.4 H (13.2-15.2) % Plt Count 360 (140-440) K/mm3 Lymph % (Auto) Pass Worker Add Manual Diff Complete Total Counted 100 Seg Neutrophils % Pass Worker Seg Neuts % (Manual) 43.0 (40.0-70.0) % Band Neutrophils % 0 % Lymphocytes % (Manual) 50.0 H (13.4-35.0) % Reactive Lymphs % (Man) 0 % Monocytes % (Manual) 5.0 (0.0-7.3) % Eosinophils % (Manual) 2.0 (0.0-4.3) % Basophils % (Manual) 0 (0.0-1.8) % Metamyelocytes % 0 % Myelocytes % 0 % Promyelocytes % 0 % Blast Cells % 0 % Nucleated RBC % Not Reportable Seg Neutrophils # Man 1.8 (1.8-7.7) K/mm3 Band Neutrophils # 0.0 K/mm3 Lymphocytes # (Manual) 2.1 (1.2-5.4) K/mm3 Abs React Lymphs (Man) 0.0 K/mm3 Monocytes # (Manual) 0.2 (0.0-0.8) K/mm3 Eosinophils # (Manual) 0.1 (0.0-0.4) K/mm3 Basophils # (Manual) 0.0 (0.0-0.1) K/mm3 Metamyelocytes # 0.0 K/mm3 Myelocytes # 0.0 K/mm3 Promyelocytes # 0.0 K/mm3 Blast Cells # 0.0 K/mm3 WBC Morphology Not Reportable Hypersegmented Neuts Not Reportable Hyposegmented Neuts Not Reportable Hypogranular Neuts Not Reportable Smudge Cells Not Reportable Toxic Granulation Not Reportable Toxic Vacuolation Not Reportable Dohle Bodies Not Reportable Pelger-Huet Anomaly Not Reportable Katie Rods Not Reportable Platelet Estimate Consistent w auto Clumped Platelets Not Reportable Plt Clumps, EDTA Not Reportable Large Platelets Not Reportable Giant Platelets Not Reportable Platelet Satelliting Not Reportable Plt Morphology Comment Not Reportable RBC Morphology Not Reportable Dimorphic RBCs Not Reportable Polychromasia Not Reportable Hypochromasia 1+ Poikilocytosis Not Reportable Anisocytosis 1+ Microcytosis Not Reportable Macrocytosis Not Reportable Spherocytes Not Reportable Pappenheimer Bodies Not Reportable Sickle Cells Not Reportable Target Cells Few Tear Drop Cells Not Reportable Ovalocytes Not Reportable Helmet Cells Not Reportable Torres-Dish Bodies Not Reportable [place] Rings Not Reportable Lisa Cells Not Reportable Bite Cells Not Reportable Crenated Cell Not Reportable Elliptocytes Not Reportable Acanthocytes (Spur) Not Reportable Rouleaux Not Reportable Hemoglobin C Crystals Not Reportable Schistocytes Not Reportable Malaria parasites Not Reportable Connor Bodies Not Reportable Hem Pathologist Commnt No Sodium 142 (137-145) mmol/L Potassium 4.5 (3.6-5.0) mmol/L Chloride 103.4 (98-107) mmol/L Carbon Dioxide 24 (22-30) mmol/L Anion Gap 19 mmol/L BUN 6 L (9-20) mg/dL Creatinine 0.6 L (0.8-1.3) mg/dL Estimated GFR > 60 ml/min BUN/Creatinine Ratio 10 % Glucose 114 H (75-100) mg/dL Calcium 8.5 (8.4-10.2) mg/dL Total Bilirubin 0.20 (0.1-1.2) mg/dL AST 29 (5-40) units/L ALT 15 (7-56) units/L Alkaline Phosphatase 156 H (35-129) units/L Troponin T < 0.010 (0.00-0.029) ng/mL Total Protein 7.8 (6.3-8.2) g/dL Albumin 4.5 (3.9-5) g/dL Albumin/Globulin Ratio 1.4 % - EKG Data -: EKG Interpreted by Sd EKG shows normal: sinus rhythm, intervals (NC interval 231), ST-T waves (no stemi) Rate: normal - EKG Data When compared to previous EKG there are: no significant change - Radiology Data Radiology results: report reviewed CHEST 2 VIEWS INDICATION / CLINICAL INFORMATION: chest pain. COMPARISON: One view of the chest from 07/02/2021. FINDINGS: SUPPORT DEVICES: None. HEART / MEDIASTINUM: No significant abnormality. LUNGS / PLEURA: No significant pulmonary abnormality. No significant pleural effusion. No pneumothorax. ADDITIONAL FINDINGS: No significant additional findings. IMPRESSION: 1. No acute abnormality of the chest. - Medical Decision Making 60-year-old male presents to the hospital chronic chest pain and shortness of breath. Frequent ER visits and had previous hospitalizations for the same. Normal coronary arteries on cardiac cath in October 2019. Patient is not exhibiting symptoms of DVT and does not have risk factors. patient has negative troponin, unchanged EKG, no signs of hypotension, hypoxia, or tachypnea. Chest x-ray nicole.l rib pain is reproducible on examination. Patient will be discharged home with follow-up and recommend to take Tylenol Motrin as needed for pain. Critical Care Time: No Critical care attestation.: If time is entered above; I have spent that time in minutes in the direct care of this critically ill patient, excluding procedure time. ED Disposition Clinical Impression: Nonspecific chest pain, Sternal pain Disposition: HOME / SELF CARE / HOMELESS Is pt being admited?: No Does the pt Need Aspirin: No Condition: Stable Instructions: Chest Wall Pain, [id number], Nonspecific Chest Pain, Adult Additional Instructions: Take Motrin or Tylenol as needed for pain. Follow-up with a primary care doctor and production supv as an outpatient. Return if symptoms worsen as indicated by your discharge instructions. Referrals: MATHEW REAVES MD [Primary Care Provider] - 3-5 Days RAE MCKEON MD [Staff Physician] - 3-5 Days (Cardiology) Time of Disposition: 06:53
[2021-07-05 06:51] VITALS: BP 132/88
--- NOTE | 2021-07-06 17:05 | Electrocardiograph Report ---
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
== END 2021-07-05 07:14 | disposition home or self-care (01) ==
LOC: ED 23:37
DX: R07.9 Chest pain, unspecified (principal); R07.2 Precordial pain; I10 Essential (primary) hypertension; Z90.89 Acquired absence of other organs
CPT/HCPCS: 36415; 71046; 80053; 84484; 85007; 85025; 93005; 99283

== ENCOUNTER 2021-07-05 23:56 | Emergency (ER) | payer MEDICAID ==
--- NOTE | 2021-07-06 04:20 | Emergency Department Report ---
ED General Adult HPI - General Chief complaint: Dyspnea/Respdistress Stated complaint: TANVI Time Seen by Provider: 07/06/21 04:15 Source: patient Mode of arrival: Ambulatory Limitations: No Limitations - History of Present Illness Initial comments: Linden is a 60-year-old -[place] male who presents for cough for the past 2 weeks. Patient has been seen in ED on June 30,, ,, , , and now . Upon entering room patient was asleep. Patient patient was easily aroused however. Patient advises he came in because he had some coughing and shortness of breath. Patient denies pain pain is exacerbated by activity bending and twisting. With deep inspiration. Pain is relieved by nothing tried. Patient denies fevers chills no nausea or vomiting. Severity scale (0 -10): 4 - Related Data Previous Rx's Medication Instructions Recorded Last Taken Type Aspirin 325 mg PO QDAY #30 tablet 10/23/19 Unknown Rx Metoprolol [Lopressor TAB] 25 mg PO BID #60 tablet 10/23/19 Unknown Rx Aspirin 325 mg PO QDAY #30 tablet 05/16/20 Unknown Rx Metoprolol [Lopressor TAB] 25 mg PO BID #60 tablet 05/16/20 Unknown Rx Pravastatin [Pravachol] 20 mg PO QHS #30 tablet 05/16/20 Unknown Rx Folic Acid [Folvite] 1 mg PO QDAY #30 tablet 08/14/20 Unknown Rx Multivitamin with Folic Acid [Cvs 400 mcg PO QDAY #30 tablet 08/14/20 Unknown Rx One Daily Essential Tablet] Thiamine [Vitamin B-1] 100 mg PO QDAY #30 tablet 08/14/20 Unknown Rx Ondansetron [Zofran ODT TAB] 4 mg PO Q8HR #14 tab.edgardis 09/10/20 Unknown Rx Pantoprazole [Protonix TAB] 40 mg PO QDAY #30 tablet 09/10/20 Unknown Rx Naproxen [Naprosyn] 500 mg PO BID #14 tablet 09/17/20 Unknown Rx Esomeprazole Magnesium [NexIUM] 40 mg PO QDAY #30 capsule. 11/23/20 Unknown Rx Naproxen [Naprosyn] 500 mg PO BID #14 tablet 12/17/20 Unknown Rx Ondansetron [Zofran ODT TAB] 4 mg PO Q8HR PRN #10 tab.rapdis 12/23/20 Unknown Rx Albuterol Mdi (or & Nicu Only) 2 puff IH QID PRN #8.5 gram 01/26/21 Unknown Rx [ProAir HFA Inhaler] Albuterol Sulfate [Proventil Hfa] 6.7 gm IH Q4HR #1 05/24/21 Unknown Rx Benzonatate [Tessalon Perles] 100 mg PO Q8HR #21 cap 05/24/21 Unknown Rx methylPREDNISolone [Medrol 4MG 4 mg PO ONCE #1 05/24/21 Unknown Rx DOSEPAK (21 tabs)] Ondansetron [Zofran Odt] 4 mg PO Q8HR #10 tab.rapdis 06/09/21 Unknown Rx Acetaminophen 325 mg PO Q6H PRN #30 cap 07/06/21 Unknown Rx Allergies Allergy/AdvReac Type Severity Reaction Status Date / Time No Known Allergies Allergy Verified 07/05/21 00:46 ED Review of Systems ROS: Stated complaint: TANVI Other details as noted in HPI Constitutional: denies: chills, fever Eyes: denies: eye pain, eye discharge, vision change ENT: congestion. denies: ear pain, throat pain Respiratory: denies: cough, shortness of breath, wheezing Cardiovascular: chest pain. denies: palpitations, dyspnea on exertion Endocrine: no symptoms reported Gastrointestinal: denies: abdominal pain, nausea, vomiting, diarrhea Genitourinary: denies: urgency, dysuria, frequency, discharge Musculoskeletal: as per HPI Skin: denies: rash, lesions Neurological: denies: headache, weakness, numbness, paresthesias, confusion, vertigo Psychiatric: denies: anxiety, depression Hematological/Lymphatic: denies: easy bleeding, easy bruising ED Past Medical Hx - Past Medical History Hx Hypertension: Yes Hx CVA: Yes (left) Hx Heart Attack/AMI: Yes Hx Congestive Heart Failure: No Hx Diabetes: No Hx Asthma: No Hx COPD: No Hx HIV: No Additional medical history: chronic pain in back, neck and L knee, ETOH abuse. herniated disc - Surgical History Hx Appendectomy: Yes Additional Surgical History: Left Knee. skin graft to right hand, left hip surgery - Social History Smoking Status: Never Smoker Substance Use Type: None - Medications Home Medications: Home Medications Medication Instructions Recorded Confirmed Last Taken Type Aspirin 325 mg PO QDAY #30 tablet 10/23/19 Unknown Rx Metoprolol [Lopressor TAB] 25 mg PO BID #60 tablet 10/23/19 Unknown Rx Aspirin 325 mg PO QDAY #30 tablet 05/16/20 Unknown Rx Metoprolol [Lopressor TAB] 25 mg PO BID #60 tablet 05/16/20 Unknown Rx Pravastatin [Pravachol] 20 mg PO QHS #30 tablet 05/16/20 Unknown Rx Folic Acid [Folvite] 1 mg PO QDAY #30 tablet 08/14/20 Unknown Rx Multivitamin with Folic Acid [Cvs 400 mcg PO QDAY #30 tablet 08/14/20 Unknown Rx One Daily Essential Tablet] Thiamine [Vitamin B-1] 100 mg PO QDAY #30 tablet 08/14/20 Unknown Rx Ondansetron [Zofran ODT TAB] 4 mg PO Q8HR #14 tab.rapdis 09/10/20 Unknown Rx Pantoprazole [Protonix TAB] 40 mg PO QDAY #30 tablet 09/10/20 Unknown Rx Naproxen [Naprosyn] 500 mg PO BID #14 tablet 09/17/20 Unknown Rx Esomeprazole Magnesium [NexIUM] 40 mg PO QDAY #30 capsule.dr 11/23/20 Unknown Rx Naproxen [Naprosyn] 500 mg PO BID #14 tablet 12/17/20 Unknown Rx Ondansetron [Zofran ODT TAB] 4 mg PO Q8HR PRN #10 tab.rapdis 12/23/20 Unknown Rx Albuterol Mdi (or & Nicu Only) 2 puff IH QID PRN #8.5 gram 01/26/21 Unknown Rx [ProAir HFA Inhaler] Albuterol Sulfate [Proventil Hfa] 6.7 gm IH Q4HR #1 05/24/21 Unknown Rx Benzonatate [Tessalon Perles] 100 mg PO Q8HR #21 cap 05/24/21 Unknown Rx methylPREDNISolone [Medrol 4MG 4 mg PO ONCE #1 05/24/21 Unknown Rx DOSEPAK (21 tabs)] Ondansetron [Zofran Odt] 4 mg PO Q8HR #10 tab.rapdis 06/09/21 Unknown Rx Acetaminophen 325 mg PO Q6H PRN #30 cap 07/06/21 Unknown Rx ED Physical Exam - General Limitations: No Limitations General appearance: alert, in no apparent distress - Head Head exam: Present: normocephalic, normal inspection - Eye Eye exam: Present: normal appearance, PERRL, EOMI. Absent: conjunctival injection, nystagmus Pupils: Present: normal accommodation - ENT ENT exam: Present: normal orophraynx, mucous membranes moist, TM's normal bilaterally, normal external ear exam - Neck Neck exam: Present: normal inspection, full ROM. Absent: tenderness, meningismus, lymphadenopathy, thyromegaly - Respiratory Respiratory exam: Present: normal lung sounds bilaterally. Absent: respiratory distress, wheezes, stridor, chest wall tenderness, prolonged expiratory - Cardiovascular Cardiovascular Exam: Present: regular rate, normal rhythm, normal heart sounds. Absent: systolic murmur, diastolic murmur, rubs, gallop - GI/Abdominal GI/Abdominal exam: Present: soft, normal bowel sounds - Extremities Exam Extremities exam: Present: normal inspection, normal capillary refill - Back Exam Back exam: Present: normal inspection. Absent: muscle spasm ED Course Vital Signs 07/05/21 23:58 Temperature 98.6 F Pulse Rate 98 H Respiratory 20 Rate Blood Pressure 119/86 [Left] O2 Sat by Pulse 100 Oximetry ED Medical Decision Making - EKG Data EKG shows normal: sinus rhythm, axis, intervals, QRS complexes, ST-T waves Rate: normal - EKG Data When compared to previous EKG there are: no significant change Interpretation: no acute changes (No ST elevated IA, normal sinus rhythm with PVCs. Interpreted by ED attending. This is baseline EKG for this patient.) - Medical Decision Making Patient states pain is intermittent patient has follow-up for cardiology and primary care. Patient advised to take medications as prescribed 2 days ago. For as needed pain. And follow-up primary care as directed. Patient verbalized agreement understanding with discharge plan. Patient DC'd home in stable condition at this time Critical care attestation.: If time is entered above; I have spent that time in minutes in the direct care of this critically ill patient, excluding procedure time. ED Disposition Clinical Impression: Nonspecific chest pain Disposition: HOME / SELF CARE / HOMELESS Is pt being admited?: No Does the pt Need Aspirin: No Condition: Stable Instructions: Nonspecific Chest Pain, Adult Additional Instructions: Follow-up with your doctor in 2 to 3 days. Return to emergency department if symptoms worsen. Prescriptions: Acetaminophen 325 mg PO Q6H PRN #30 cap PRN Reason: pain Referrals: MATHEW REAVES MD [Staff Physician] - 3-5 Days Forms: Work/School Release Form(ED) Time of Disposition: 05:39
[2021-07-06 07:05] VITALS: BP 123/87
--- NOTE | 2021-07-09 13:11 | Electrocardiograph Report ---
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
== END 2021-07-06 07:05 | disposition home or self-care (01) ==
LOC: ED 23:56
DX: R07.9 Chest pain, unspecified (principal); I10 Essential (primary) hypertension
CPT/HCPCS: 93005; 99282

== ENCOUNTER 2021-07-06 21:14 | Emergency (ER) | payer MEDICAID ==
[2021-07-06 21:36] VITALS: BP 139/92
--- NOTE | 2021-07-09 13:17 | Electrocardiograph Report ---
[facility] Test Date: 2021-07-06 Test Time: 21:46:18 Pat Name: REBECCA ELIZABETH Department: Room: Gender: M Caustic Liquor Maker: NEYMAR : 1960 Requested By: ED DOC Order Number: [id number] Reading MD: Deena Langston Measurements Intervals [place] Rate: 98 P: 85 OH: 220 QRS: 70 QRSD: 96 T: 53 QT: 361 QTc: 461 Interpretive Statements Sinus rhythm Prolonged OH interval Compared to ECG 07/05/2021 00:44:57 PVCs no longer evident Electronically Signed On 07-09-2021 13:16:42 EDT by Deena Langston
== END 2021-07-08 09:24 | disposition left against medical advice (07) ==
LOC: ED 21:14
DX: R07.9 Chest pain, unspecified (principal); Z53.21 Procedure and treatment not carried out due to patient leaving prior to being seen by health care provider
CPT/HCPCS: 93005

== ENCOUNTER 2021-07-07 22:04 | Emergency (ER) | payer MEDICAID ==
--- NOTE | 2021-07-08 11:53 | Emergency Department Report ---
ED General Adult HPI - General Chief complaint: Chest Pain Stated complaint: CHEST PAIN/SOB Time Seen by Provider: 07/08/21 10:51 Source: patient, RN notes reviewed, old records reviewed Mode of arrival: Ambulatory Limitations: No Limitations - History of Present Illness Initial comments: Mr. Lemus is a pleasant and cooperative 60-year-old gentleman who is well- known to this department and to myself, who presents to the ER today with his typical complaint of nonspecific chest tightness and shortness of breath. It is now resolved. He denies physical pain at this time. He is not homicidal and suicidal. He states "I am fine, thank you for seeing me." This patient presents frequently and often for very similar complaints. Multiple objective diagnostic studies have been unremarkable in terms of a cardiac risk stratification evaluation. -: month(s), year(s) Location: chest Radiation: non-radiation Severity scale (0 -10): 0 Consistency: now resolved Improves with: none Worsens with: none Associated Symptoms: denies other symptoms - Related Data Previous Rx's Medication Instructions Recorded Last Taken Type Aspirin 325 mg PO QDAY #30 tablet 10/23/19 Unknown Rx Metoprolol [Lopressor TAB] 25 mg PO BID #60 tablet 10/23/19 Unknown Rx Aspirin 325 mg PO QDAY #30 tablet 05/16/20 Unknown Rx Metoprolol [Lopressor TAB] 25 mg PO BID #60 tablet 05/16/20 Unknown Rx Pravastatin [Pravachol] 20 mg PO QHS #30 tablet 05/16/20 Unknown Rx Folic Acid [Folvite] 1 mg PO QDAY #30 tablet 08/14/20 Unknown Rx Multivitamin with Folic Acid [Cvs 400 mcg PO QDAY #30 tablet 08/14/20 Unknown Rx One Daily Essential Tablet] Thiamine [Vitamin B-1] 100 mg PO QDAY #30 tablet 08/14/20 Unknown Rx Ondansetron [Zofran ODT TAB] 4 mg PO Q8HR #14 tab.rapdis 09/10/20 Unknown Rx Pantoprazole [Protonix TAB] 40 mg PO QDAY #30 tablet 09/10/20 Unknown Rx Naproxen [Naprosyn] 500 mg PO BID #14 tablet 09/17/20 Unknown Rx Esomeprazole Magnesium [NexIUM] 40 mg PO QDAY #30 capsule. 11/23/20 Unknown Rx Naproxen [Naprosyn] 500 mg PO BID #14 tablet 12/17/20 Unknown Rx Ondansetron [Zofran ODT TAB] 4 mg PO Q8HR PRN #10 tab.rapdis 12/23/20 Unknown Rx Albuterol Mdi (or & Nicu Only) 2 puff IH QID PRN #8.5 gram 01/26/21 Unknown Rx [ProAir HFA Inhaler] Albuterol Sulfate [Proventil Hfa] 6.7 gm IH Q4HR #1 05/24/21 Unknown Rx Benzonatate [Tessalon Perles] 100 mg PO Q8HR #21 cap 05/24/21 Unknown Rx methylPREDNISolone [Medrol 4MG 4 mg PO ONCE #1 05/24/21 Unknown Rx DOSEPAK (21 tabs)] Ondansetron [Zofran Odt] 4 mg PO Q8HR #10 tab.rapdis 06/09/21 Unknown Rx Acetaminophen 325 mg PO Q6H PRN #30 cap 07/06/21 Unknown Rx Allergies Allergy/AdvReac Type Severity Reaction Status Date / Time No Known Allergies Allergy Verified 07/07/21 23:52 ED Review of Systems ROS: Stated complaint: CHEST PAIN/SOB Other details as noted in HPI Constitutional: denies: fever Eyes: denies: eye discharge ENT: denies: epistaxis Respiratory: denies: wheezing Cardiovascular: chest pain Gastrointestinal: denies: abdominal pain Psychiatric: denies: homicidal thoughts ED Past Medical Hx - Past Medical History Previous Medical History?: Yes Hx Hypertension: Yes Hx CVA: Yes (left) Hx Heart Attack/AMI: Yes Hx Congestive Heart Failure: No Hx Diabetes: No Hx Asthma: No Hx COPD: No Hx HIV: No Additional medical history: chronic pain in back, neck and L knee, ETOH abuse. herniated disc - Surgical History Past Surgical History?: Yes Hx Appendectomy: Yes Additional Surgical History: Left Knee. skin graft to right hand, left hip surgery - Social History Smoking Status: Never Smoker Substance Use Type: None - Medications Home Medications: Home Medications Medication Instructions Recorded Confirmed Last Taken Type Aspirin 325 mg PO QDAY #30 tablet 10/23/19 Unknown Rx Metoprolol [Lopressor TAB] 25 mg PO BID #60 tablet 10/23/19 Unknown Rx Aspirin 325 mg PO QDAY #30 tablet 05/16/20 Unknown Rx Metoprolol [Lopressor TAB] 25 mg PO BID #60 tablet 05/16/20 Unknown Rx Pravastatin [Pravachol] 20 mg PO QHS #30 tablet 05/16/20 Unknown Rx Folic Acid [Folvite] 1 mg PO QDAY #30 tablet 08/14/20 Unknown Rx Multivitamin with Folic Acid [Cvs 400 mcg PO QDAY #30 tablet 08/14/20 Unknown Rx One Daily Essential Tablet] Thiamine [Vitamin B-1] 100 mg PO QDAY #30 tablet 08/14/20 Unknown Rx Ondansetron [Zofran ODT TAB] 4 mg PO Q8HR #14 tab.rapdis 09/10/20 Unknown Rx Pantoprazole [Protonix TAB] 40 mg PO QDAY #30 tablet 09/10/20 Unknown Rx Naproxen [Naprosyn] 500 mg PO BID #14 tablet 09/17/20 Unknown Rx Esomeprazole Magnesium [NexIUM] 40 mg PO QDAY #30 capsule.dr 11/23/20 Unknown Rx Naproxen [Naprosyn] 500 mg PO BID #14 tablet 12/17/20 Unknown Rx Ondansetron [Zofran ODT TAB] 4 mg PO Q8HR PRN #10 tab.rapdis 12/23/20 Unknown Rx Albuterol Mdi (or & Nicu Only) 2 puff IH QID PRN #8.5 gram 01/26/21 Unknown Rx [ProAir HFA Inhaler] Albuterol Sulfate [Proventil Hfa] 6.7 gm IH Q4HR #1 05/24/21 Unknown Rx Benzonatate [Tessalon Perles] 100 mg PO Q8HR #21 cap 05/24/21 Unknown Rx methylPREDNISolone [Medrol 4MG 4 mg PO ONCE #1 05/24/21 Unknown Rx DOSEPAK (21 tabs)] Ondansetron [Zofran Odt] 4 mg PO Q8HR #10 tab.rapdis 06/09/21 Unknown Rx Acetaminophen 325 mg PO Q6H PRN #30 cap 07/06/21 Unknown Rx ED Physical Exam - General Limitations: No Limitations General appearance: alert, in no apparent distress - Head Head exam: Present: atraumatic, normocephalic - Eye Eye exam: Present: normal appearance, EOMI. Absent: nystagmus - ENT ENT exam: Present: normal exam, normal orophraynx, mucous membranes moist, normal external ear exam - Neck Neck exam: Present: normal inspection, full ROM. Absent: tenderness, meningismus - Respiratory Respiratory exam: Present: normal lung sounds bilaterally. Absent: respiratory distress, wheezes, rales, rhonchi, stridor, decreased breath sounds - Cardiovascular Cardiovascular Exam: Present: regular rate, normal rhythm, normal heart sounds. Absent: bradycardia, tachycardia, irregular rhythm, systolic murmur, diastolic murmur, rubs, gallop - GI/Abdominal GI/Abdominal exam: Present: soft. Absent: distended, tenderness, guarding, rebound, rigid, pulsatile mass - Rectal Rectal exam: Present: deferred - Extremities Exam Extremities exam: Present: normal inspection, full ROM, other (2+ pulses noted i n the bilateral upper and lower extremities. There is no palpable cord. negative Homans sign. Muscular compartments are soft. The pelvis is stable.). Absent: pedal edema, calf tenderness - Back Exam Back exam: Present: normal inspection. Absent: tenderness, CVA tenderness (R), CVA tenderness (L), paraspinal tenderness, vertebral tenderness - Neurological Exam Neurological exam: Present: alert, other (No facial droop. Tongue midline. Extraocular movements intact bilaterally. Facial sensation intact to light touch in V1, V2, V3 distribution bilaterally. 5 and a 5 strength in 4 extremities. Sensation intact to light touch in 4 extremities.). Absent: motor sensory deficit - Psychiatric Psychiatric exam: Absent: homicidal ideation, suicidal ideation - Skin Skin exam: Present: warm, dry, intact, normal color. Absent: rash ED Course Vital Signs 07/07/21 07/08/21 23:50 11:05 Temperature 97.6 F 97.9 F Pulse Rate 105 H 91 H Respiratory 18 16 Rate Blood Pressure 136/93 Blood Pressure 125/81 [Left] O2 Sat by Pulse 98 99 Oximetry - Pulse Oximetry Interpretation Digit-Finger Initial Pulse Oximetry Readin O2 Sat by Pulse Oximetry: 99 Actions Taken: none ED Medical Decision Making - Lab Data Vital Signs 07/07/21 07/08/21 23:50 11:05 Temperature 97.6 F 97.9 F Pulse Rate 105 H 91 H Respiratory 18 16 Rate Blood Pressure 136/93 Blood Pressure 125/81 [Left] O2 Sat by Pulse 98 99 Oximetry - EKG Data -: EKG Interpreted by Wy EKG shows normal: sinus rhythm Rate: normal - EKG Data Interpretation: unchanged when compared t 07/08/21 11:59 EKG is interpreted at 23: 44 Sinus rhythm, rate 97 bpm. Normal axis, normal P wave axis, low voltage, QTC 494 ms. Poor R wave progression. Abnormal EKG. No STEMI - Medical Decision Making Differential diagnosis, include not limited to: GERD, gastritis, hiatal hernia, costochondritis, chronic chest pain, malingering, secondary gain, homelessness, encounter for medical screening examination Assessment and plan: 60-year-old gentleman, who was afebrile, with reassuring vital signs, resolved tachycardia, unremarkable physical examination, who is clinically sober, EKG unchanged from prior, with complaints of typical chronic chest discomfort. EKG unchanged from prior. Physical examination benign and unremarkable. Multiple recent laboratory studies including x-ray studies are reviewed, and they are unremarkable. Patient likely presenting for secondary gain. He does not meet criteria for 1013 hold or involuntary confinement. He exhibits decision-making capacity, and he is able to care for himself independently. Critical care attestation.: If time is entered above; I have spent that time in minutes in the direct care of this critically ill patient, excluding procedure time. ED Disposition Clinical Impression: Nonspecific chest pain Disposition: HOME / SELF CARE / HOMELESS Is pt being admited?: No Does the pt Need Aspirin: No Condition: Good Instructions: Nonspecific Chest Pain, Adult Additional Instructions: Please continue current outpatient medications. Avoid consumption of alcohol, tobacco and smoke products. May take [id number] Tylenol, Pepcid, Protonix as needed for physical pain. Avoid consumption of Motrin, ibuprofen, Naprosyn, Aleve, alcohol, tobacco and smoke products. Avoid consumption of heavy and spicy foods. Follow-up with a primary care doctor within the next week. Please return to the emergency room right away with new pain, worsened pain, migration of pain, projectile vomiting, change in mental status, confusion, inability tolerate liquid feeds, new, worsened or different symptoms not present on the initial emergency room evaluation Referrals: [facility] [Outside] - 3-5 Days [facility] [Outside] - 3-5 Days
[2021-07-08 12:15] VITALS: BP 132/92
--- NOTE | 2021-07-09 13:34 | Electrocardiograph Report ---
[facility] Test Date: 2021-07-07 Test Time: 23:44:46 Pat Name: REBECCA ELIZABETH Department: Room: Gender: M Shoe Clerk: BARRIE : 1960 Requested By: ED DOC Order Number: [id number] Reading MD: Deena Langsotn Measurements Intervals [place] Rate: 97 P: 91 NE: 183 QRS: 68 QRSD: 79 T: 87 QT: 389 QTc: 494 Interpretive Statements Sinus rhythm Probable left atrial enlargement Low voltage, extremity leads Probable anterolateral infarct, old Compared to ECG 07/06/2021 21:46:18 No significant change Electronically Signed On 07-09-2021 13:34:07 EDT by Deena Langston
== END 2021-07-08 12:15 | disposition home or self-care (01) ==
LOC: ED 22:04
DX: R07.9 Chest pain, unspecified (principal); I10 Essential (primary) hypertension; I21.9 Acute myocardial infarction, unspecified; Z86.73 Personal history of transient ischemic attack (TIA), and cerebral infarction without residual deficits; Z98.890 Other specified postprocedural states; Z79.899 Other long term (current) drug therapy
CPT/HCPCS: 93005; 99282

== ENCOUNTER 2021-07-08 22:02 | Emergency (ER) | payer MEDICAID ==
[2021-07-09 04:27] VITALS: BP 120/80
== END 2021-07-10 03:00 | disposition left against medical advice (07) ==
LOC: ED 22:02
DX: R06.02 Shortness of breath (principal); Z53.21 Procedure and treatment not carried out due to patient leaving prior to being seen by health care provider

== ENCOUNTER 2021-07-09 21:55 | Emergency (ER) | payer MEDICAID | END 2021-07-10 04:58 | disposition left against medical advice (07) | LOC: ED 21:55 | DX: R07.9 Chest pain, unspecified (principal); R06.02 Shortness of breath; Z53.21 Procedure and treatment not carried out due to patient leaving prior to being seen by health care provider ==

== ENCOUNTER 2021-07-11 01:35 | Emergency (ER) | payer MEDICAID ==
[2021-07-11 03:20] VITALS: BP 134/95
--- NOTE | 2021-07-12 10:46 | Electrocardiograph Report ---
[facility] Test Date: 2021-07-11 Test Time: 02:35:32 Pat Name: REBECCA ELIZABETH Department: Room: Gender: M Bioinformatics Developer: CAR : 1960 Requested By: ED DOC Order Number: [id number] Reading MD: Crispin Johnson Measurements Intervals [place] Rate: 108 P: 77 CT: 212 QRS: 75 QRSD: 83 T: 34 QT: 336 QTc: 451 Interpretive Statements Sinus tachycardia Borderline prolonged CT interval Anteroseptal infarct, old Compared to ECG 07/07/2021 23:44:46 Sinus rhythm no longer present Myocardial infarct finding still present Electronically Signed On 07-12-2021 10:46:47 EDT by Crispin Johnson
== END 2021-07-11 05:00 ==
LOC: ED 01:35
DX: R05.9 Cough, unspecified (principal); Z53.21 Procedure and treatment not carried out due to patient leaving prior to being seen by health care provider
CPT/HCPCS: 93005

== ENCOUNTER 2021-07-11 21:12 | Emergency (ER) | payer MEDICAID ==
[2021-07-11 21:38] VITALS: BP 122/75
== END 2021-07-11 23:59 | disposition left against medical advice (07) ==
LOC: ED 21:12
DX: R07.9 Chest pain, unspecified (principal); R06.02 Shortness of breath; Z53.21 Procedure and treatment not carried out due to patient leaving prior to being seen by health care provider

== ENCOUNTER 2021-07-12 22:46 | Emergency (ER) | payer MEDICAID ==
--- NOTE | 2021-07-13 10:15 | Electrocardiograph Report ---
[facility] Test Date: 2021-07-12 Test Time: 23:40:30 Pat Name: REBECCA ELIZABETH Department: Room: Gender: M Senior Consulting Manager: CHELY : 1960 Requested By: ED DOC Order Number: [id number] Reading MD: Crispin Johnson Measurements Intervals [place] Rate: 103 P: 79 DC: 217 QRS: 65 QRSD: 79 T: 31 QT: 350 QTc: 458 Interpretive Statements Sinus tachycardia Prolonged DC interval Anteroseptal infarct, old Compared to ECG 07/11/2021 02:35:32 No significant changes Electronically Signed On 07-13-2021 10:14:56 EDT by Crispin Johnson
--- NOTE | 2021-07-14 00:58 | Emergency Department Report ---
ED Chest Pain HPI - General Chief Complaint: Chest Pain Stated Complaint: CHEST PAIN Time Seen by Provider: 07/14/21 00:43 Source: patient Mode of arrival: Ambulatory Limitations: No Limitations - History of Present Illness Initial Comments: Patient is a 60-year-old homeless man presenting to ED with complaint of aching central chest pain and shortness of breath that began yesterday. States at this time his symptoms have improved. -: Gradual Onset: during rest Severity: moderate Severity scale (0 -10): 0 Quality: aching Consistency: now resolved Improves With: nothing Worsens With: nothing Treatments Prior to Arrival: none - Related Data Previous Rx's Medication Instructions Recorded Last Taken Type Aspirin 325 mg PO QDAY #30 tablet 10/23/19 Unknown Rx Metoprolol [Lopressor TAB] 25 mg PO BID #60 tablet 10/23/19 Unknown Rx Aspirin 325 mg PO QDAY #30 tablet 05/16/20 Unknown Rx Metoprolol [Lopressor TAB] 25 mg PO BID #60 tablet 05/16/20 Unknown Rx Pravastatin [Pravachol] 20 mg PO QHS #30 tablet 05/16/20 Unknown Rx Folic Acid [Folvite] 1 mg PO QDAY #30 tablet 08/14/20 Unknown Rx Multivitamin with Folic Acid [Cvs 400 mcg PO QDAY #30 tablet 08/14/20 Unknown Rx One Daily Essential Tablet] Thiamine [Vitamin B-1] 100 mg PO QDAY #30 tablet 08/14/20 Unknown Rx Ondansetron [Zofran ODT TAB] 4 mg PO Q8HR #14 tab.rapdis 09/10/20 Unknown Rx Pantoprazole [Protonix TAB] 40 mg PO QDAY #30 tablet 09/10/20 Unknown Rx Naproxen [Naprosyn] 500 mg PO BID #14 tablet 09/17/20 Unknown Rx Esomeprazole Magnesium [NexIUM] 40 mg PO QDAY #30 capsule. 11/23/20 Unknown Rx Naproxen [Naprosyn] 500 mg PO BID #14 tablet 12/17/20 Unknown Rx Ondansetron [Zofran ODT TAB] 4 mg PO Q8HR PRN #10 tab.rapdis 12/23/20 Unknown Rx Albuterol Mdi (or & Nicu Only) 2 puff IH QID PRN #8.5 gram 01/26/21 Unknown Rx [ProAir HFA Inhaler] Albuterol Sulfate [Proventil Hfa] 6.7 gm IH Q4HR #1 05/24/21 Unknown Rx Benzonatate [Tessalon Perles] 100 mg PO Q8HR #21 cap 05/24/21 Unknown Rx methylPREDNISolone [Medrol 4MG 4 mg PO ONCE #1 05/24/21 Unknown Rx DOSEPAK (21 tabs)] Ondansetron [Zofran Odt] 4 mg PO Q8HR #10 tab.rapdis 06/09/21 Unknown Rx Acetaminophen 325 mg PO Q6H PRN #30 cap 07/06/21 Unknown Rx Allergies Allergy/AdvReac Type Severity Reaction Status Date / Time No Known Allergies Allergy Verified 07/07/21 23:52 ED Review of Systems ROS: Stated complaint: CHEST PAIN Other details as noted in HPI Comment: All other systems reviewed and negative Constitutional: denies: chills, fever Respiratory: shortness of breath Cardiovascular: chest pain Endocrine: no symptoms reported Gastrointestinal: denies: abdominal pain, nausea, diarrhea Genitourinary: denies: urgency, dysuria Musculoskeletal: denies: back pain, joint swelling, arthralgia Skin: denies: rash, lesions Neurological: denies: headache, weakness, paresthesias Psychiatric: denies: anxiety, depression ED Past Medical Hx - Past Medical History Hx Hypertension: Yes Hx CVA: Yes (left) Hx Heart Attack/AMI: Yes Hx Congestive Heart Failure: No Hx Diabetes: No Hx Asthma: No Hx COPD: No Hx HIV: No Additional medical history: chronic pain in back, neck and L knee, ETOH abuse. herniated disc - Surgical History Hx Appendectomy: Yes Additional Surgical History: Left Knee. skin graft to right hand, left hip surgery - Social History Smoking Status: Never Smoker Substance Use Type: None - Medications Home Medications: Home Medications Medication Instructions Recorded Confirmed Last Taken Type Aspirin 325 mg PO QDAY #30 tablet 10/23/19 Unknown Rx Metoprolol [Lopressor TAB] 25 mg PO BID #60 tablet 10/23/19 Unknown Rx Aspirin 325 mg PO QDAY #30 tablet 05/16/20 Unknown Rx Metoprolol [Lopressor TAB] 25 mg PO BID #60 tablet 05/16/20 Unknown Rx Pravastatin [Pravachol] 20 mg PO QHS #30 tablet 05/16/20 Unknown Rx Folic Acid [Folvite] 1 mg PO QDAY #30 tablet 08/14/20 Unknown Rx Multivitamin with Folic Acid [Cvs 400 mcg PO QDAY #30 tablet 08/14/20 Unknown Rx One Daily Essential Tablet] Thiamine [Vitamin B-1] 100 mg PO QDAY #30 tablet 08/14/20 Unknown Rx Ondansetron [Zofran ODT TAB] 4 mg PO Q8HR #14 tab.rapdis 09/10/20 Unknown Rx Pantoprazole [Protonix TAB] 40 mg PO QDAY #30 tablet 09/10/20 Unknown Rx Naproxen [Naprosyn] 500 mg PO BID #14 tablet 09/17/20 Unknown Rx Esomeprazole Magnesium [NexIUM] 40 mg PO QDAY #30 capsule.dr 11/23/20 Unknown Rx Naproxen [Naprosyn] 500 mg PO BID #14 tablet 12/17/20 Unknown Rx Ondansetron [Zofran ODT TAB] 4 mg PO Q8HR PRN #10 tab.rapdis 12/23/20 Unknown Rx Albuterol Mdi (or & Nicu Only) 2 puff IH QID PRN #8.5 gram 01/26/21 Unknown Rx [ProAir HFA Inhaler] Albuterol Sulfate [Proventil Hfa] 6.7 gm IH Q4HR #1 05/24/21 Unknown Rx Benzonatate [Tessalon Perles] 100 mg PO Q8HR #21 cap 05/24/21 Unknown Rx methylPREDNISolone [Medrol 4MG 4 mg PO ONCE #1 05/24/21 Unknown Rx DOSEPAK (21 tabs)] Ondansetron [Zofran Odt] 4 mg PO Q8HR #10 tab.rapdis 06/09/21 Unknown Rx Acetaminophen 325 mg PO Q6H PRN #30 cap 07/06/21 Unknown Rx ED Physical Exam - General Limitations: No Limitations General appearance: alert, in no apparent distress - Head Head exam: Present: atraumatic, normocephalic - Respiratory Respiratory exam: Present: normal lung sounds bilaterally. Absent: respiratory distress - Cardiovascular Cardiovascular Exam: Present: regular rate, normal rhythm, normal heart sounds - GI/Abdominal GI/Abdominal exam: Present: soft. Absent: distended, tenderness - Rectal Rectal exam: Present: deferred - Neurological Exam Neurological exam: Present: alert, oriented X3, CN II-XII intact - Psychiatric Psychiatric exam: Present: normal affect, normal mood - Skin Skin exam: Present: warm, dry, intact, normal color ED Course Vital Signs 07/12/21 07/13/21 07/13/21 23:04 23:52 23:56 Temperature 98.4 F Pulse Rate 111 H 71 Respiratory 18 16 Rate Blood Pressure 149/101 Blood Pressure 114/71 [Right] O2 Sat by Pulse 96 98 98 Oximetry MERT score - Mert Score Age > 65: (0) No Aspirin use within the Past 7 Days: (0) No 3 or more CAD Risk Factors: (1) Yes 2 or more Angina events in past 24 hrs: (0) No Known CAD with more than 50% Stenosis: (0) No Elevated Cardiac Markers: (0) No ST Deviation Greater than 0.5mm: (0) No MERT Score: 1 Critical care attestation.: If time is entered above; I have spent that time in minutes in the direct care of this critically ill patient, excluding procedure time. ED Disposition Condition: Stable Referrals: PRIMARY CARE, [Primary Care Provider] - 3-5 Days
--- NOTE | 2021-07-14 02:07 | XRay Report ---
CHEST 1 VIEW 07/14/2021 12:20 AM INDICATION / CLINICAL INFORMATION: Chest Pain. COMPARISON: 07/05/2021 FINDINGS: SUPPORT DEVICES: None. HEART / MEDIASTINUM: No significant abnormality. LUNGS / PLEURA: No significant pulmonary or pleural abnormality. No pneumothorax. ADDITIONAL FINDINGS: No significant additional findings. IMPRESSION: 1. No acute findings. Signer Name: José Miguel Romero DO Signed: 07/14/2021 2:03 AM Workstation Name: [id number]
== END 2021-07-14 01:00 | disposition left against medical advice (07) ==
LOC: ED 22:46
DX: R07.9 Chest pain, unspecified (principal); Z53.21 Procedure and treatment not carried out due to patient leaving prior to being seen by health care provider
CPT/HCPCS: 71045; 93005

== ENCOUNTER 2021-07-13 20:43 | Emergency (ER) | payer MEDICAID ==
[2021-07-14 01:24] VITALS: BP 114/71
--- NOTE | 2021-07-14 01:32 | Emergency Department Report ---
ED Chest Pain HPI - General Chief Complaint: Dyspnea/Respdistress Stated Complaint: sob Time Seen by Provider: 07/14/21 01:13 Source: patient Mode of arrival: Ambulatory Limitations: No Limitations - History of Present Illness Initial Comments: Patient is a 60-year-old male presenting to ED with complaint of chest discomfort and shortness of breath that began yesterday. States he came here however left after waiting for several hours. He describes the pain as sharp sensation in the center of his chest with no radiation. States his symptoms are currently improved. MD Complaint: chest pain - Related Data Previous Rx's Medication Instructions Recorded Last Taken Type Aspirin 325 mg PO QDAY #30 tablet 10/23/19 Unknown Rx Metoprolol [Lopressor TAB] 25 mg PO BID #60 tablet 10/23/19 Unknown Rx Aspirin 325 mg PO QDAY #30 tablet 05/16/20 Unknown Rx Metoprolol [Lopressor TAB] 25 mg PO BID #60 tablet 05/16/20 Unknown Rx Pravastatin [Pravachol] 20 mg PO QHS #30 tablet 05/16/20 Unknown Rx Folic Acid [Folvite] 1 mg PO QDAY #30 tablet 08/14/20 Unknown Rx Multivitamin with Folic Acid [Cvs 400 mcg PO QDAY #30 tablet 08/14/20 Unknown Rx One Daily Essential Tablet] Thiamine [Vitamin B-1] 100 mg PO QDAY #30 tablet 08/14/20 Unknown Rx Ondansetron [Zofran ODT TAB] 4 mg PO Q8HR #14 tab.rapdis 09/10/20 Unknown Rx Pantoprazole [Protonix TAB] 40 mg PO QDAY #30 tablet 09/10/20 Unknown Rx Naproxen [Naprosyn] 500 mg PO BID #14 tablet 09/17/20 Unknown Rx Esomeprazole Magnesium [NexIUM] 40 mg PO QDAY #30 capsule. 11/23/20 Unknown Rx Naproxen [Naprosyn] 500 mg PO BID #14 tablet 12/17/20 Unknown Rx Ondansetron [Zofran ODT TAB] 4 mg PO Q8HR PRN #10 tab.rapdis 12/23/20 Unknown Rx Albuterol Mdi (or & Nicu Only) 2 puff IH QID PRN #8.5 gram 01/26/21 Unknown Rx [ProAir HFA Inhaler] Albuterol Sulfate [Proventil Hfa] 6.7 gm IH Q4HR #1 05/24/21 Unknown Rx Benzonatate [Tessalon Perles] 100 mg PO Q8HR #21 cap 05/24/21 Unknown Rx methylPREDNISolone [Medrol 4MG 4 mg PO ONCE #1 05/24/21 Unknown Rx DOSEPAK (21 tabs)] Ondansetron [Zofran Odt] 4 mg PO Q8HR #10 tab.rapdis 06/09/21 Unknown Rx Acetaminophen 325 mg PO Q6H PRN #30 cap 07/06/21 Unknown Rx Allergies Allergy/AdvReac Type Severity Reaction Status Date / Time No Known Allergies Allergy Verified 07/07/21 23:52 Heart Score - HEART Score History: Slightly suspicious EKG: Normal Age: 45-65 Risk factors: No known risk factors Troponin: < normal limit HEART Score: 1 - EKG Read Time Time EKG Completed: 01:33 EKG Read Time: 01:35 - Critical Actions Critical Actions: 0-3 pts:0.9-1.7%risk of adverse cardiac event.Candidate for discharge ED Review of Systems ROS: Stated complaint: sob Other details as noted in HPI Comment: All other systems reviewed and negative Constitutional: denies: chills, fever Respiratory: shortness of breath Cardiovascular: chest pain Endocrine: no symptoms reported Gastrointestinal: as per HPI Genitourinary: denies: urgency, dysuria Musculoskeletal: denies: back pain, joint swelling, arthralgia Skin: denies: rash, lesions Neurological: denies: headache, weakness, paresthesias Psychiatric: denies: anxiety, depression ED Past Medical Hx - Past Medical History Hx Hypertension: Yes Hx CVA: Yes (left) Hx Heart Attack/AMI: Yes Hx Congestive Heart Failure: No Hx Diabetes: No Hx Asthma: No Hx COPD: No Hx HIV: No Additional medical history: chronic pain in back, neck and L knee, ETOH abuse. herniated disc - Surgical History Hx Appendectomy: Yes Additional Surgical History: Left Knee. skin graft to right hand, left hip surgery - Social History Smoking Status: Never Smoker Substance Use Type: None - Medications Home Medications: Home Medications Medication Instructions Recorded Confirmed Last Taken Type Aspirin 325 mg PO QDAY #30 tablet 10/23/19 Unknown Rx Metoprolol [Lopressor TAB] 25 mg PO BID #60 tablet 10/23/19 Unknown Rx Aspirin 325 mg PO QDAY #30 tablet 05/16/20 Unknown Rx Metoprolol [Lopressor TAB] 25 mg PO BID #60 tablet 05/16/20 Unknown Rx Pravastatin [Pravachol] 20 mg PO QHS #30 tablet 05/16/20 Unknown Rx Folic Acid [Folvite] 1 mg PO QDAY #30 tablet 08/14/20 Unknown Rx Multivitamin with Folic Acid [Cvs 400 mcg PO QDAY #30 tablet 08/14/20 Unknown Rx One Daily Essential Tablet] Thiamine [Vitamin B-1] 100 mg PO QDAY #30 tablet 08/14/20 Unknown Rx Ondansetron [Zofran ODT TAB] 4 mg PO Q8HR #14 tab.rapdis 09/10/20 Unknown Rx Pantoprazole [Protonix TAB] 40 mg PO QDAY #30 tablet 09/10/20 Unknown Rx Naproxen [Naprosyn] 500 mg PO BID #14 tablet 09/17/20 Unknown Rx Esomeprazole Magnesium [NexIUM] 40 mg PO QDAY #30 capsule.dr 11/23/20 Unknown Rx Naproxen [Naprosyn] 500 mg PO BID #14 tablet 12/17/20 Unknown Rx Ondansetron [Zofran ODT TAB] 4 mg PO Q8HR PRN #10 tab.rapdis 12/23/20 Unknown Rx Albuterol Mdi (or & Nicu Only) 2 puff IH QID PRN #8.5 gram 01/26/21 Unknown Rx [ProAir HFA Inhaler] Albuterol Sulfate [Proventil Hfa] 6.7 gm IH Q4HR #1 05/24/21 Unknown Rx Benzonatate [Tessalon Perles] 100 mg PO Q8HR #21 cap 05/24/21 Unknown Rx methylPREDNISolone [Medrol 4MG 4 mg PO ONCE #1 05/24/21 Unknown Rx DOSEPAK (21 tabs)] Ondansetron [Zofran Odt] 4 mg PO Q8HR #10 tab.rapdis 06/09/21 Unknown Rx Acetaminophen 325 mg PO Q6H PRN #30 cap 07/06/21 Unknown Rx ED Physical Exam - General Limitations: No Limitations General appearance: alert, in no apparent distress - Head Head exam: Present: atraumatic, normocephalic - Respiratory Respiratory exam: Present: normal lung sounds bilaterally. Absent: respiratory distress - Cardiovascular Cardiovascular Exam: Present: regular rate, normal rhythm. Absent: systolic murmur, diastolic murmur, rubs, gallop - GI/Abdominal GI/Abdominal exam: Present: soft. Absent: distended, tenderness - Rectal Rectal exam: Present: deferred - Neurological Exam Neurological exam: Present: alert, oriented X3 - Psychiatric Psychiatric exam: Present: normal affect, normal mood - Skin Skin exam: Present: warm, dry, intact, normal color ED Course Vital Signs 07/13/21 07/13/21 07/13/21 20:53 23:52 23:55 Pulse Rate 108 H 88 Respiratory 16 Rate Blood Pressure 124/79 Blood Pressure 114/71 [Right] O2 Sat by Pulse 96 98 98 Oximetry MERT score - Mert Score Age > 65: (0) No Aspirin use within the Past 7 Days: (0) No 3 or more CAD Risk Factors: (1) Yes 2 or more Angina events in past 24 hrs: (0) No Known CAD with more than 50% Stenosis: (0) No Elevated Cardiac Markers: (0) No ST Deviation Greater than 0.5mm: (0) No MERT Score: 1 ED Medical Decision Making - Lab Data Result diagrams: 07/14/21 01:15 07/14/21 01:15 - EKG Data EKG shows normal: sinus rhythm Rate: normal - EKG Data 07/14/21 02:40 HI interval 232 ms - Medical Decision Making Troponin normal. No acute ischemic findings on EKG. on reassessment patient does not appear to be in any acute distress and is sleeping. Stable for discharge home Critical care attestation.: If time is entered above; I have spent that time in minutes in the direct care of this critically ill patient, excluding procedure time. ED Disposition Clinical Impression: Nonspecific chest pain, Dyspnea Disposition: 01 HOME / SELF CARE / HOMELESS Is pt being admited?: No Condition: Stable Instructions: Nonspecific Chest Pain, Adult, Shortness of Breath, Adult Time of Disposition: 02:42
[2021-07-14 01:38] LABS: Hematocrit 36.9 % (35.5-45.6); Hemoglobin 11.7 gm/dl (11.8-15.2); Mean Corpuscular HGB Conc 32 % (32-34); Mean Corpuscular Volume 81 fl (84-94); Red Blood Count 4.55 M/mm3 (3.65-5.03)
[2021-07-14 01:52] LABS: Alanine Aminotransferase 22 units/L (7-56); Albumin 4.4 g/dL (3.9-5); Blood Urea Nitrogen 5 mg/dL (9-20); Calcium 8.4 mg/dL (8.4-10.2); Hemolysis Index 8
[2021-07-14 01:54] LABS: BUN/Creatinine Ratio 8
[2021-07-14 01:55] LABS: Platelet Count 95 K/mm3 (140-440); Red Cell Distribution Width 20.4 % (13.2-15.2)
[2021-07-14 02:58] LABS: Basophils % (Manual) 0 % (0.0-1.8); Total Cells Counted 100
[2021-07-14 02:59] LABS: Anisocytosis 1+; Hypochromasia 1+; Platelet Estimate Consistent w Auto
--- NOTE | 2021-07-14 09:47 | Electrocardiograph Report ---
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
== END 2021-07-14 02:52 | disposition home or self-care (01) ==
LOC: ED 20:43
DX: R07.89 Other chest pain (principal); R06.00 Dyspnea, unspecified; I10 Essential (primary) hypertension; Z79.899 Other long term (current) drug therapy
CPT/HCPCS: 36415; 80053; 84484; 85007; 85025; 93005; 99283

== ENCOUNTER 2021-07-15 00:16 | Emergency (ER) | payer MEDICAID | END 2021-07-15 07:00 | disposition left against medical advice (07) | LOC: ED 00:16 | DX: R07.9 Chest pain, unspecified (principal); Z53.21 Procedure and treatment not carried out due to patient leaving prior to being seen by health care provider ==

== ENCOUNTER 2021-07-15 23:11 | Emergency (ER) | payer MEDICAID | END 2021-07-16 00:38 | disposition left against medical advice (07) | LOC: ED 23:11 | DX: R06.02 Shortness of breath (principal); R07.9 Chest pain, unspecified; Z53.21 Procedure and treatment not carried out due to patient leaving prior to being seen by health care provider ==

== ENCOUNTER 2021-07-23 23:38 | Emergency (ER) | payer MEDICAID ==
[2021-07-24 02:40] VITALS: BP 110/77
== END 2021-07-24 14:17 | disposition left against medical advice (07) ==
LOC: ED 23:38
DX: R07.9 Chest pain, unspecified (principal); R06.02 Shortness of breath; Z53.21 Procedure and treatment not carried out due to patient leaving prior to being seen by health care provider

== ENCOUNTER 2021-07-24 23:26 | Emergency (ER) | payer MEDICAID ==
[2021-07-25 00:26] VITALS: BP 144/93
== END 2021-07-25 19:00 | disposition left against medical advice (07) ==
LOC: ED 23:26
DX: R06.02 Shortness of breath (principal); Z53.21 Procedure and treatment not carried out due to patient leaving prior to being seen by health care provider

== ENCOUNTER 2021-07-25 22:27 | Emergency (ER) | payer MEDICAID | END 2021-07-26 00:46 | disposition left against medical advice (07) | LOC: ED 22:27 | DX: R07.9 Chest pain, unspecified (principal); Z53.21 Procedure and treatment not carried out due to patient leaving prior to being seen by health care provider ==

== ENCOUNTER 2021-07-31 23:31 | Emergency (ER) | payer MEDICAID ==
[2021-08-01 00:26] VITALS: BP 122/80
== END 2021-08-01 01:00 | disposition left against medical advice (07) ==
LOC: ED 23:31
DX: R07.9 Chest pain, unspecified (principal); Z53.21 Procedure and treatment not carried out due to patient leaving prior to being seen by health care provider

== ENCOUNTER 2021-08-01 22:29 | Emergency (ER) | payer MEDICAID ==
[2021-08-01 22:45] VITALS: BP 122/82
== END 2021-08-02 08:00 | disposition left against medical advice (07) ==
LOC: ED 22:29
DX: R07.9 Chest pain, unspecified (principal); Z53.21 Procedure and treatment not carried out due to patient leaving prior to being seen by health care provider

== ENCOUNTER 2021-08-02 23:17 | Emergency (ER) | payer MEDICAID ==
[2021-08-02 23:23] VITALS: BP 130/70
== END 2021-08-03 02:00 | disposition left against medical advice (07) ==
LOC: ED 23:17
DX: R07.9 Chest pain, unspecified (principal); Z53.21 Procedure and treatment not carried out due to patient leaving prior to being seen by health care provider
CPT/HCPCS: 93005

== ENCOUNTER 2021-08-04 01:24 | Emergency (ER) | payer MEDICAID ==
[2021-08-04 01:29] VITALS: BP 134/80
== END 2021-08-04 12:21 | disposition left against medical advice (07) ==
LOC: ED 01:24
DX: Z72.89 Other problems related to lifestyle (principal); Z53.21 Procedure and treatment not carried out due to patient leaving prior to being seen by health care provider

== ENCOUNTER 2021-08-14 00:13 | Emergency (ER) | payer MEDICAID ==
--- NOTE | 2021-08-14 07:58 | Emergency Department Report ---
ED General Adult HPI - General Chief complaint: Dyspnea/Respdistress Stated complaint: TANVI PUI?: No Time Seen by Provider: 08/14/21 07:35 Source: EMS Mode of arrival: Ambulatory Limitations: No Limitations - History of Present Illness Initial comments: Mr. Lemus is a 60-year-old male well-known to us in the emergency room. He comes to the emergency room last night complaining of chest pain. However, by the time I seen him this morning he has no complaints and is asking for something to eat. Radiation: non-radiation Severity scale (0 -10): 0 Improves with: none Worsens with: none Associated Symptoms: denies other symptoms Treatments Prior to Arrival: none - Related Data Previous Rx's Medication Instructions Recorded Last Taken Type Aspirin 325 mg PO QDAY #30 tablet 05/16/20 Unknown Rx Albuterol Sulfate [Proventil Hfa] 6.7 gm IH Q4HR #1 05/24/21 Unknown Rx Benzonatate [Tessalon Perles] 100 mg PO Q8HR #21 cap 05/24/21 Unknown Rx Esomeprazole Magnesium [NexIUM] 40 mg PO QDAY #30 capsule.dr 07/19/21 Unknown Rx Folic Acid [Folvite] 1 mg PO QDAY #30 tablet 07/19/21 Unknown Rx Metoprolol [Lopressor TAB] 25 mg PO BID #60 tablet 07/19/21 Unknown Rx Multivitamin with Folic Acid [Cvs 400 mcg PO QDAY #30 tablet 07/19/21 Unknown Rx One Daily Essential Tablet] Ondansetron [Zofran ODT TAB] 4 mg PO Q8HR #14 tab.rapdis 07/19/21 Unknown Rx Pantoprazole [Protonix TAB] 40 mg PO QDAY #30 tablet 07/19/21 Unknown Rx Pravastatin [Pravachol] 20 mg PO QHS #30 tablet 07/19/21 Unknown Rx Thiamine [Vitamin B-1] 100 mg PO QDAY #30 tablet 07/19/21 Unknown Rx traMADoL [Ultram 50 MG tab] 50 mg PO Q6H PRN #14 tablet 07/19/21 Unknown Rx Allergies Allergy/AdvReac Type Severity Reaction Status Date / Time No Known Allergies Allergy Verified 07/17/21 01:12 ED Review of Systems ROS: Stated complaint: TANVI Other details as noted in HPI Comment: All other systems reviewed and negative ED Past Medical Hx - Past Medical History Previous Medical History?: Yes Hx Hypertension: Yes Hx CVA: Yes (left) Hx Heart Attack/AMI: Yes Hx Congestive Heart Failure: No Hx Diabetes: No Hx Asthma: No Hx COPD: No Hx HIV: No Additional medical history: chronic pain in back, neck and L knee, ETOH abuse. herniated disc - Surgical History Past Surgical History?: Yes Hx Appendectomy: Yes Additional Surgical History: Left Knee. skin graft to right hand, left hip surgery - Family History Family history: no significant - Social History Smoking Status: Current Every Day Smoker Substance Use Type: Alcohol - Medications Home Medications: Home Medications Medication Instructions Recorded Confirmed Last Taken Type Aspirin 325 mg PO QDAY #30 tablet 05/16/20 07/18/21 Unknown Rx Albuterol Sulfate [Proventil Hfa] 6.7 gm IH Q4HR #1 05/24/21 07/18/21 Unknown Rx Benzonatate [Tessalon Perles] 100 mg PO Q8HR #21 cap 05/24/21 07/18/21 Unknown Rx Esomeprazole Magnesium [NexIUM] 40 mg PO QDAY #30 capsule.dr 07/19/21 Unknown Rx Folic Acid [Folvite] 1 mg PO QDAY #30 tablet 07/19/21 Unknown Rx Metoprolol [Lopressor TAB] 25 mg PO BID #60 tablet 07/19/21 Unknown Rx Multivitamin with Folic Acid [Cvs 400 mcg PO QDAY #30 tablet 07/19/21 Unknown Rx One Daily Essential Tablet] Ondansetron [Zofran ODT TAB] 4 mg PO Q8HR #14 tab.rapdis 07/19/21 Unknown Rx Pantoprazole [Protonix TAB] 40 mg PO QDAY #30 tablet 07/19/21 Unknown Rx Pravastatin [Pravachol] 20 mg PO QHS #30 tablet 07/19/21 Unknown Rx Thiamine [Vitamin B-1] 100 mg PO QDAY #30 tablet 07/19/21 Unknown Rx traMADoL [Ultram 50 MG tab] 50 mg PO Q6H PRN #14 tablet 07/19/21 Unknown Rx ED Physical Exam - General Limitations: No Limitations General appearance: alert, in no apparent distress - Head Head exam: Present: atraumatic, normocephalic - Eye Eye exam: Present: normal appearance - ENT ENT exam: Present: mucous membranes moist - Neck Neck exam: Present: normal inspection - Respiratory Respiratory exam: Present: normal lung sounds bilaterally. Absent: respiratory distress - Cardiovascular Cardiovascular Exam: Present: regular rate, normal rhythm. Absent: systolic murmur, diastolic murmur, rubs, gallop - GI/Abdominal GI/Abdominal exam: Present: soft, normal bowel sounds - Rectal Rectal exam: Present: deferred - Extremities Exam Extremities exam: Present: normal inspection - Back Exam Back exam: Present: normal inspection - Neurological Exam Neurological exam: Present: alert, oriented X3 - Psychiatric Psychiatric exam: Present: normal affect, normal mood - Skin Skin exam: Present: warm, dry, intact, normal color. Absent: rash ED Course Vital Signs 08/14/21 08/14/21 08:16 09:45 Temperature 98.2 F 98.2 F Pulse Rate 89 89 Respiratory 20 20 Rate Blood Pressure 104/66 128/74 [Left] O2 Sat by Pulse 100 98 Oximetry ED Medical Decision Making - Medical Decision Making Vital Signs 08/14/21 08/14/21 08:16 09:45 Temperature 98.2 F 98.2 F Pulse Rate 89 89 Respiratory 20 20 Rate Blood Pressure 104/66 128/74 [Left] O2 Sat by Pulse 100 98 Oximetry Denies complaints at the time of provider exam. Patient discharged home with discharge plan of care including diet, activity, medications and follow-up. Critical care attestation.: If time is entered above; I have spent that time in minutes in the direct care of this critically ill patient, excluding procedure time. ED Disposition Clinical Impression: Malingering, Chest pain Disposition: HOME / SELF CARE / HOMELESS Is pt being admited?: No Does the pt Need Aspirin: No Condition: Stable Instructions: Nonspecific Chest Pain, Adult Referrals: MATHEW REAVES MD [Primary Care Provider] - 3-5 Days Time of Disposition: 07:57
[2021-08-14 09:48] VITALS: BP 128/74
== END 2021-08-14 09:45 | disposition home or self-care (01) ==
LOC: ED 00:13
DX: R07.9 Chest pain, unspecified (principal); Z76.5 Malingerer [conscious simulation]; I10 Essential (primary) hypertension; F17.200 Nicotine dependence, unspecified, uncomplicated; F10.20 Alcohol dependence, uncomplicated; Z90.89 Acquired absence of other organs
CPT/HCPCS: 99283

== ENCOUNTER 2021-09-13 23:35 | Emergency (ER) | payer MEDICAID ==
[2021-09-13 23:52] VITALS: BP 91/58
--- NOTE | 2021-09-14 15:16 | Event Note ---
ED Screening Note ED Screening Note: HERE OVERNIGHT FOR CP 0700 HE STATES HE FEELS BETTER AND WILL JUST LEAVE WELL KNOWN TO US This initial assessment/diagnostic orders/clinical plan/treatment(s) is/are subject to change based on patients health status, clinical progression and re- assessment by fellow clinical providers in the ED. Further treatment and workup at subsequent clinical providers discretion. Patient/guardian urged not to elope from the ED as their condition may be serious if not clinically assessed and managed. Initial orders include: ELOPED
--- NOTE | 2021-09-14 17:53 | Electrocardiograph Report ---
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
== END 2021-09-14 09:00 | disposition left against medical advice (07) ==
LOC: ED 23:35
DX: R06.02 Shortness of breath (principal); Z53.21 Procedure and treatment not carried out due to patient leaving prior to being seen by health care provider
CPT/HCPCS: 93005

== ENCOUNTER 2021-09-20 22:26 | Emergency (ER) | payer MEDICAID ==
[2021-09-21] MEDS ORDERED: ASPIRIN 81 MG TAB CHEW PO ONE (11:24)
--- NOTE | 2021-09-21 11:37 | Emergency Department Report ---
ED Chest Pain HPI - General Chief Complaint: Chest Pain Stated Complaint: CP,SOB Time Seen by Provider: 09/21/21 10:27 Source: patient Mode of arrival: Ambulatory Limitations: No Limitations - History of Present Illness Initial Comments: Patient is a 60-year-old male with history of CAD presenting to ED with complaint of sharp retrosternal chest pains beginning yesterday evening. States his symptoms are currently resolved now. He did report associated dyspnea. There were no modifying factors. He reports several similar episodes in the past. Severity scale (0 -10): 0 - Related Data Previous Rx's Medication Instructions Recorded Last Taken Type Aspirin 325 mg PO QDAY #30 tablet 05/16/20 Unknown Rx Albuterol Sulfate [Proventil Hfa] 6.7 gm IH Q4HR #1 05/24/21 Unknown Rx Benzonatate [Tessalon Perles] 100 mg PO Q8HR #21 cap 05/24/21 Unknown Rx Esomeprazole Magnesium [NexIUM] 40 mg PO QDAY #30 capsule. 07/19/21 Unknown Rx Folic Acid [Folvite] 1 mg PO QDAY #30 tablet 07/19/21 Unknown Rx Metoprolol [Lopressor TAB] 25 mg PO BID #60 tablet 07/19/21 Unknown Rx Multivitamin with Folic Acid [Cvs 400 mcg PO QDAY #30 tablet 07/19/21 Unknown Rx One Daily Essential Tablet] Ondansetron [Zofran ODT TAB] 4 mg PO Q8HR #14 tab.rapdis 07/19/21 Unknown Rx Pantoprazole [Protonix TAB] 40 mg PO QDAY #30 tablet 07/19/21 Unknown Rx Pravastatin [Pravachol] 20 mg PO QHS #30 tablet 07/19/21 Unknown Rx Thiamine [Vitamin B-1] 100 mg PO QDAY #30 tablet 07/19/21 Unknown Rx traMADoL [Ultram 50 MG tab] 50 mg PO Q6H PRN #14 tablet 07/19/21 Unknown Rx Allergies Allergy/AdvReac Type Severity Reaction Status Date / Time No Known Allergies Allergy Verified 07/17/21 01:12 Heart Score - HEART Score History: Slightly suspicious EKG: Normal Age: 45-65 Risk factors: > 3 risk factors or hx of atherosclerotic disease Troponin: < normal limit HEART Score: 3 - EKG Read Time Time EKG Completed: 22:33 EKG Read Time: 22:37 - Critical Actions Critical Actions: 0-3 pts:0.9-1.7%risk of adverse cardiac event.Candidate for discharge ED Review of Systems ROS: Stated complaint: CP,SOB Other details as noted in HPI Constitutional: denies: chills, fever Respiratory: shortness of breath. denies: cough, wheezing Cardiovascular: chest pain Gastrointestinal: denies: abdominal pain, nausea, diarrhea Musculoskeletal: denies: back pain, joint swelling, arthralgia Skin: denies: rash, lesions Neurological: denies: headache, weakness, paresthesias Psychiatric: denies: anxiety, depression Hematological/Lymphatic: denies: easy bleeding, easy bruising ED Past Medical Hx - Past Medical History Hx Hypertension: Yes Hx CVA: Yes (left) Hx Heart Attack/AMI: Yes Hx Congestive Heart Failure: No Hx Diabetes: No Hx Deep Vein Thrombosis: No Hx Pulmonary Embolism: No Hx GERD: No Hx Liver Disease: No Hx Renal Disease: No Hx of Cancer: No Hx Sickle Cell Disease: No Hx Arthritis: No Hx Headaches / Migraines: No Hx Seizures: No Hx Kidney Stones: No Hx Psychiatric Treatment: No Hx Asthma: No Hx COPD: No Hx Dementia: No Hx HIV: No Additional medical history: chronic pain in back, neck and L knee, ETOH abuse. herniated disc - Surgical History Past Surgical History?: No Hx Coronary Stent: No Hx Open Heart Surgery: No Hx Pacemaker: No Hx Internal Defibrillator: No Hx Cholecystectomy: No Hx Appendectomy: Yes Hx Breast Surgery: No Additional Surgical History: Left Knee. skin graft to right hand, left hip surgery - Social History Smoking Status: Current Every Day Smoker Substance Use Type: Alcohol - Medications Home Medications: Home Medications Medication Instructions Recorded Confirmed Last Taken Type Aspirin 325 mg PO QDAY #30 tablet 05/16/20 07/18/21 Unknown Rx Albuterol Sulfate [Proventil Hfa] 6.7 gm IH Q4HR #1 05/24/21 07/18/21 Unknown Rx Benzonatate [Tessalon Perles] 100 mg PO Q8HR #21 cap 05/24/21 07/18/21 Unknown Rx Esomeprazole Magnesium [NexIUM] 40 mg PO QDAY #30 capsule. 07/19/21 Unknown Rx Folic Acid [Folvite] 1 mg PO QDAY #30 tablet 07/19/21 Unknown Rx Metoprolol [Lopressor TAB] 25 mg PO BID #60 tablet 07/19/21 Unknown Rx Multivitamin with Folic Acid [Cvs 400 mcg PO QDAY #30 tablet 07/19/21 Unknown Rx One Daily Essential Tablet] Ondansetron [Zofran ODT TAB] 4 mg PO Q8HR #14 tab.rapdis 07/19/21 Unknown Rx Pantoprazole [Protonix TAB] 40 mg PO QDAY #30 tablet 07/19/21 Unknown Rx Pravastatin [Pravachol] 20 mg PO QHS #30 tablet 07/19/21 Unknown Rx Thiamine [Vitamin B-1] 100 mg PO QDAY #30 tablet 07/19/21 Unknown Rx traMADoL [Ultram 50 MG tab] 50 mg PO Q6H PRN #14 tablet 07/19/21 Unknown Rx ED Physical Exam - General Limitations: No Limitations General appearance: alert, in no apparent distress - Head Head exam: Present: atraumatic, normocephalic - Eye Eye exam: Present: normal appearance, EOMI - Neck Neck exam: Present: normal inspection. Absent: tenderness - Respiratory Respiratory exam: Present: normal lung sounds bilaterally. Absent: respiratory distress - Cardiovascular Cardiovascular Exam: Present: regular rate, normal rhythm, normal heart sounds - GI/Abdominal GI/Abdominal exam: Present: soft. Absent: distended, tenderness - Rectal Rectal exam: Present: deferred - Extremities Exam Extremities exam: Present: normal inspection. Absent: pedal edema - Neurological Exam Neurological exam: Present: alert, oriented X3 - Psychiatric Psychiatric exam: Present: normal affect, normal mood - Skin Skin exam: Present: warm, dry, intact, normal color ED Course Vital Signs 09/20/21 09/21/21 09/21/21 22:30 09:18 10:00 Temperature 98.3 F 98.5 F Pulse Rate 102 H 89 Respiratory 18 18 Rate Blood Pressure 96/64 Blood Pressure 118/69 [Left] O2 Sat by Pulse 97 96 98 Oximetry MERT score - Mert Score Age > 65: (0) No Aspirin use within the Past 7 Days: (0) No 3 or more CAD Risk Factors: (1) Yes 2 or more Angina events in past 24 hrs: (0) No Known CAD with more than 50% Stenosis: (0) No Elevated Cardiac Markers: (0) No ST Deviation Greater than 0.5mm: (0) No MERT Score: 1 ED Medical Decision Making - Lab Data Result diagrams: 09/21/21 12:00 09/21/21 12:00 - EKG Data -: EKG Interpreted by Me EKG shows normal: sinus rhythm, axis, intervals, QRS complexes Rate: tachycardia - Radiology Data Radiology results: report reviewed No acute findings on chest x-ray - Medical Decision Making No acute findings on EKG or chest x-ray. CBC and CMP grossly unremarkable. Troponin is undetectable. On reassessment patient remains in no acute distress. Heart score is 3. Patient is stable for discharge home with PCP follow-up in 1 to 2 weeks. Critical care attestation.: If time is entered above; I have spent that time in minutes in the direct care of this critically ill patient, excluding procedure time. ED Disposition Clinical Impression: Nonspecific chest pain Disposition: 01 HOME / SELF CARE / HOMELESS Is pt being admited?: No Condition: Stable Instructions: Nonspecific Chest Pain, Adult Additional Instructions: Please follow-up with your regular doctor in 1 to 2 weeks. You may return if your symptoms worsen. Time of Disposition: 13:01
--- NOTE | 2021-09-21 11:46 | XRay Report ---
CHEST 1 VIEW 09/21/2021 11:30 AM INDICATION / CLINICAL INFORMATION: Chest Pain. COMPARISON: 07/17/2021 FINDINGS: SUPPORT DEVICES: None. HEART / MEDIASTINUM: No significant abnormality. LUNGS / PLEURA: No significant pulmonary or pleural abnormality. No pneumothorax. ADDITIONAL FINDINGS: No significant additional findings. IMPRESSION: 1. No acute findings. Signer Name: Kodi Stuart Jr, MD Signed: 09/21/2021 11:41 AM Workstation Name: [id number]
[2021-09-21 12:32] LABS: Hemoglobin 10.1 gm/dl (11.8-15.2); Mean Corpuscular HGB Conc 32 % (32-34); Mean Corpuscular Volume 78 fl (84-94); Platelet Count 299 K/mm3 (140-440); Red Blood Count 4.08 M/mm3 (3.65-5.03); Red Cell Distribution Width 18.9 % (13.2-15.2)
[2021-09-21 12:47] LABS: Alanine Aminotransferase 11 units/L (7-56); Albumin 4.1 g/dL (3.9-5); Blood Urea Nitrogen 7 mg/dL (9-20); Calcium 9.2 mg/dL (8.4-10.2); Hemolysis Index 0
[2021-09-21 12:51] LABS: BUN/Creatinine Ratio 12
[2021-09-21 13:10] VITALS: BP 115/70
[2021-09-21 18:58] LABS: Basophils % (Manual) 0 % (0.0-1.8); Eosinophils % (Manual) 0 % (0.0-4.3); Total Cells Counted 100
[2021-09-21 18:59] LABS: Anisocytosis 1+; Hypochromasia 1+; Platelet Estimate Consistent w Auto; Target Cells Few
--- NOTE | 2021-09-23 15:09 | Electrocardiograph Report ---
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
== END 2021-09-21 13:11 | disposition home or self-care (01) ==
LOC: ED 22:26
DX: R07.9 Chest pain, unspecified (principal); I10 Essential (primary) hypertension; I21.9 Acute myocardial infarction, unspecified; Z86.73 Personal history of transient ischemic attack (TIA), and cerebral infarction without residual deficits; F17.200 Nicotine dependence, unspecified, uncomplicated; Z79.899 Other long term (current) drug therapy
CPT/HCPCS: 36415; 71045; 80053; 83690; 84484; 85007; 85025; 93005; 99283; 99284

== ENCOUNTER 2021-09-22 01:07 | Emergency (ER) | payer MEDICAID ==
[2021-09-22 01:17] VITALS: BP 96/65
== END 2021-09-23 10:11 | disposition left against medical advice (07) ==
LOC: ED 01:07
DX: R06.02 Shortness of breath (principal); Z53.21 Procedure and treatment not carried out due to patient leaving prior to being seen by health care provider

== ENCOUNTER 2021-09-28 02:35 | Emergency (ER) | payer MEDICAID ==
[2021-09-28 08:44] VITALS: BP 115/77
[2021-09-28 09:01] LABS: Hematocrit 28.3 % (35.5-45.6); Hemoglobin 9.3 gm/dl (11.8-15.2); Mean Corpuscular HGB Conc 33 % (32-34); Mean Corpuscular Volume 76 fl (84-94); Platelet Count 289 K/mm3 (140-440); Red Blood Count 3.74 M/mm3 (3.65-5.03); Red Cell Distribution Width 19.4 % (13.2-15.2)
--- NOTE | 2021-09-28 09:11 | XRay Report ---
CHEST 2 VIEWS INDICATION: Dyspnea. COMPARISON: 09/21/2021 FINDINGS: Support devices: None. Heart: Within normal limits. Lungs/Pleura: No acute air space or interstitial disease. No significant pleural effusion. IMPRESSION: No acute findings. Signer Name: Vick Em MD Signed: 09/28/2021 9:06 AM Workstation Name: [email or web address]
[2021-09-28 09:15] LABS: INR 1.16 (0.87-1.13)
[2021-09-28 09:16] LABS: Partial Thromboplastin Time 34.3 Sec. (24.2-36.6)
[2021-09-28 09:22] LABS: Alanine Aminotransferase 9 units/L (7-56); Albumin 3.6 g/dL (3.9-5); Blood Urea Nitrogen 7 mg/dL (9-20); Calcium 8.7 mg/dL (8.4-10.2); Hemolysis Index 6
[2021-09-28 09:23] LABS: BUN/Creatinine Ratio 14
[2021-09-28 09:28] LABS: Creatine Kinase MB 2.2 ng/mL (0.0-4.0)
--- NOTE | 2021-09-28 09:53 | Emergency Department Report ---
ED Shortness of Breath HPI - General Chief Complaint: Dyspnea/Respdistress Stated Complaint: SOB Source: patient Mode of arrival: Ambulatory Limitations: No Limitations - History of Present Illness Initial Comments: 60-year-old male presents to the ED Complaining of shortness of breath x1 day. Patient has a history of CAD. Patient frequently visits hospital for shortness of breath states that. Patient states no shortness of breath present time. Patient patient denies any chest pain, nausea or vomiting at present time. Patient is alert and oriented x3 .No acute distress noted no ill appearance noted. MD Complaint: shortness of breath -: This morning Pain Scale: 0 Improves With: nothing Worsens With: nothing - Related Data Previous Rx's Medication Instructions Recorded Last Taken Type Aspirin 325 mg PO QDAY #30 tablet 05/16/20 Unknown Rx Albuterol Sulfate [Proventil Hfa] 6.7 gm IH Q4HR #1 05/24/21 Unknown Rx Benzonatate [Tessalon Perles] 100 mg PO Q8HR #21 cap 05/24/21 Unknown Rx Esomeprazole Magnesium [NexIUM] 40 mg PO QDAY #30 capsule.dr 07/19/21 Unknown Rx Folic Acid [Folvite] 1 mg PO QDAY #30 tablet 07/19/21 Unknown Rx Metoprolol [Lopressor TAB] 25 mg PO BID #60 tablet 07/19/21 Unknown Rx Multivitamin with Folic Acid [Cvs 400 mcg PO QDAY #30 tablet 07/19/21 Unknown Rx One Daily Essential Tablet] Ondansetron [Zofran ODT TAB] 4 mg PO Q8HR #14 tab.rapdis 07/19/21 Unknown Rx Pantoprazole [Protonix TAB] 40 mg PO QDAY #30 tablet 07/19/21 Unknown Rx Pravastatin [Pravachol] 20 mg PO QHS #30 tablet 07/19/21 Unknown Rx Thiamine [Vitamin B-1] 100 mg PO QDAY #30 tablet 07/19/21 Unknown Rx traMADoL [Ultram 50 MG tab] 50 mg PO Q6H PRN #14 tablet 07/19/21 Unknown Rx Allergies Allergy/AdvReac Type Severity Reaction Status Date / Time No Known Allergies Allergy Verified 07/17/21 01:12 ED Review of Systems ROS: Stated complaint: SOB Other details as noted in HPI Constitutional: denies: chills, fever Eyes: denies: eye pain, eye discharge, vision change ENT: denies: ear pain, throat pain Respiratory: denies: cough, shortness of breath, wheezing Cardiovascular: denies: chest pain, palpitations Endocrine: no symptoms reported Gastrointestinal: denies: abdominal pain, nausea, diarrhea Genitourinary: denies: urgency, dysuria Musculoskeletal: denies: back pain, joint swelling, arthralgia Skin: denies: rash, lesions Neurological: denies: headache, weakness, paresthesias Psychiatric: denies: anxiety, depression Hematological/Lymphatic: denies: easy bleeding, easy bruising ED Past Medical Hx - Past Medical History Hx Hypertension: Yes Hx CVA: Yes (left) Hx Heart Attack/AMI: Yes Hx Congestive Heart Failure: No Hx Diabetes: No Hx Deep Vein Thrombosis: No Hx Pulmonary Embolism: No Hx GERD: No Hx Liver Disease: No Hx Renal Disease: No Hx Sickle Cell Disease: No Hx Arthritis: No Hx Headaches / Migraines: No Hx Seizures: No Hx Kidney Stones: No Hx Psychiatric Treatment: No Hx Asthma: No Hx COPD: No Hx Dementia: No Hx HIV: No Additional medical history: chronic pain in back, neck and L knee, ETOH abuse. herniated disc - Surgical History Hx Coronary Stent: No Hx Open Heart Surgery: No Hx Pacemaker: No Hx Internal Defibrillator: No Hx Cholecystectomy: No Hx Appendectomy: Yes Hx Breast Surgery: No Additional Surgical History: Left Knee. skin graft to right hand, left hip surgery - Social History Smoking Status: Current Every Day Smoker Substance Use Type: Alcohol - Medications Home Medications: Home Medications Medication Instructions Recorded Confirmed Last Taken Type Aspirin 325 mg PO QDAY #30 tablet 05/16/20 07/18/21 Unknown Rx Albuterol Sulfate [Proventil Hfa] 6.7 gm IH Q4HR #1 05/24/21 07/18/21 Unknown Rx Benzonatate [Tessalon Perles] 100 mg PO Q8HR #21 cap 05/24/21 07/18/21 Unknown Rx Esomeprazole Magnesium [NexIUM] 40 mg PO QDAY #30 capsule. 07/19/21 Unknown Rx Folic Acid [Folvite] 1 mg PO QDAY #30 tablet 07/19/21 Unknown Rx Metoprolol [Lopressor TAB] 25 mg PO BID #60 tablet 07/19/21 Unknown Rx Multivitamin with Folic Acid [Cvs 400 mcg PO QDAY #30 tablet 07/19/21 Unknown Rx One Daily Essential Tablet] Ondansetron [Zofran ODT TAB] 4 mg PO Q8HR #14 tab.rapdis 07/19/21 Unknown Rx Pantoprazole [Protonix TAB] 40 mg PO QDAY #30 tablet 07/19/21 Unknown Rx Pravastatin [Pravachol] 20 mg PO QHS #30 tablet 07/19/21 Unknown Rx Thiamine [Vitamin B-1] 100 mg PO QDAY #30 tablet 07/19/21 Unknown Rx traMADoL [Ultram 50 MG tab] 50 mg PO Q6H PRN #14 tablet 07/19/21 Unknown Rx ED Physical Exam - General Limitations: No Limitations General appearance: alert, in no apparent distress - Head Head exam: Present: atraumatic, normocephalic - Eye Eye exam: Present: normal appearance - ENT ENT exam: Present: mucous membranes moist - Neck Neck exam: Present: normal inspection - Respiratory Respiratory exam: Present: normal lung sounds bilaterally. Absent: respiratory distress - Cardiovascular Cardiovascular Exam: Present: regular rate, normal rhythm. Absent: systolic murmur, diastolic murmur, rubs, gallop - GI/Abdominal GI/Abdominal exam: Present: soft, normal bowel sounds - Rectal Rectal exam: Present: deferred - Extremities Exam Extremities exam: Present: normal inspection - Back Exam Back exam: Present: normal inspection - Neurological Exam Neurological exam: Present: alert, oriented X3 - Psychiatric Psychiatric exam: Present: normal affect, normal mood - Skin Skin exam: Present: warm, dry, intact, normal color. Absent: rash ED Course Vital Signs 09/28/21 09/28/21 09/28/21 04:37 08:41 08:43 Temperature 98.6 F 98.1 F Pulse Rate 101 H 95 H Respiratory 18 14 Rate Blood Pressure 111/73 Blood Pressure 115/77 [Left] O2 Sat by Pulse 97 98 98 Oximetry ED Medical Decision Making - Lab Data Result diagrams: 09/28/21 08:40 09/28/21 08:40 - Radiology Data [facility] [address] [place] [address] XRay Report Signed Patient: REBECCA ELIZABETH MR#: [id number] : 1960 Acct:[id number] Age/Sex: 60 / M ADM Date: 09/28/21 Loc: ED Attending Dr: Ordering Physician: YANET LINARES Date of Service: 09/28/21 Procedure(s): XR chest routine 2V Accession Number(s): [id number] cc: YANET LINARES Fluoro Time In Minutes: CHEST 2 VIEWS INDICATION: Dyspnea. COMPARISON: 09/21/2021 FINDINGS: Support devices: None. Heart: Within normal limits. Lungs/Pleura: No acute air space or interstitial disease. No significant pleural effusion. IMPRESSION: No acute findings. Signer Name: Vick Em MD Signed: 09/28/2021 9:06 AM Workstation Name: [id number] Transcribed By: ES Dictated By: Vick Em MD Electronically Authenticated By: Vick Em MD Signed Date/Time: 09/28/21905 DD/ 5 TD/TT: - Medical Decision Making 60-year-old male presents to the ED Complaining of shortness of breath x1 day. Patient has a history of CAD. Patient frequently visits hospital for shortness of breath states that. Patient states no shortness of breath present time. Patient patient denies any chest pain, nausea or vomiting at present time. Patient is alert and oriented x3 .No acute distress noted no ill appearance noted. Physical examination unremarkable troponin negative patient refused to have EKG done. Rechecked the patient is resting quietly , comfortable and feeling better. I discussed the results of diagnostic study, my clinical impression and the plan for further treatment with the patient. Patient agrees with plan and discharge at this present time. All question addressed. I have given the patient instruction regarding a diagnosis ,expectation ,follow- up and return precaution. I explained to the patient that emergent condition may arise and to return to the ED for new worsen and any new persisting condition. I have explained the importance of following up with the primary care physician or referral physician listed below has instructed. The patient verbalized understanding of discharge instruction. Critical care attestation.: If time is entered above; I have spent that time in minutes in the direct care of this critically ill patient, excluding procedure time. ED Disposition Clinical Impression: Shortness of breath Disposition: 01 HOME / SELF CARE / HOMELESS Is pt being admited?: No Does the pt Need Aspirin: No Condition: Stable Instructions: Shortness of Breath, Adult, [id number] Additional Instructions: Return to ED for any worsening symptoms Follow-up with your primary care doctor Referrals: PRIMARY CAREMD [Primary Care Provider] - 3-5 Days [facility] [Provider Group] - 3-5 Days [facility] [Provider Group] - 3-5 Days Forms: Work/School Release Form(ED)
== END 2021-09-28 10:27 | disposition home or self-care (01) ==
LOC: ED 02:35
DX: R06.02 Shortness of breath (principal); I10 Essential (primary) hypertension; I21.9 Acute myocardial infarction, unspecified; Z86.73 Personal history of transient ischemic attack (TIA), and cerebral infarction without residual deficits; F17.200 Nicotine dependence, unspecified, uncomplicated; Z98.890 Other specified postprocedural states; Z79.899 Other long term (current) drug therapy
CPT/HCPCS: 36415; 71046; 80053; 82550; 82553; 84484; 85027; 85610; 85730; 99283

== ENCOUNTER 2021-09-30 23:03 | Emergency (ER) | payer MEDICAID ==
--- NOTE | 2021-10-01 10:59 | Emergency Department Report ---
ED Shortness of Breath HPI - General Chief Complaint: Dyspnea/Respdistress Stated Complaint: SOB Source: patient Mode of arrival: Ambulatory Limitations: No Limitations - History of Present Illness Initial Comments: 61-year-old male with history of hypertension, CVA, [place] who is a known patient of the emergency department presents with shortness of breath. Patient reports his symptoms started yesterday, while he was walking to the [facility] gas station but has resolved. He denies no chest pain no swelling of his extremities, no headache dizziness weakness or vision changes. No fever, no cough cold congestion, no nausea vomiting abdominal pain for MD Complaint: shortness of breath -: Gradual Improves With: rest Worsens With: exertion Known History Of: COPD Context: recent URI Associated Symptoms: denies other symptoms Treatments Prior to Arrival: none - Related Data Home Oxygen Therapy: No Previous Rx's Medication Instructions Recorded Last Taken Type Aspirin 325 mg PO QDAY #30 tablet 05/16/20 Unknown Rx Albuterol Sulfate [Proventil Hfa] 6.7 gm IH Q4HR #1 05/24/21 Unknown Rx Benzonatate [Tessalon Perles] 100 mg PO Q8HR #21 cap 05/24/21 Unknown Rx Esomeprazole Magnesium [NexIUM] 40 mg PO QDAY #30 capsule.dr 07/19/21 Unknown Rx Folic Acid [Folvite] 1 mg PO QDAY #30 tablet 07/19/21 Unknown Rx Metoprolol [Lopressor TAB] 25 mg PO BID #60 tablet 07/19/21 Unknown Rx Multivitamin with Folic Acid [Cvs 400 mcg PO QDAY #30 tablet 07/19/21 Unknown Rx One Daily Essential Tablet] Ondansetron [Zofran ODT TAB] 4 mg PO Q8HR #14 tab.rapdis 07/19/21 Unknown Rx Pantoprazole [Protonix TAB] 40 mg PO QDAY #30 tablet 07/19/21 Unknown Rx Pravastatin [Pravachol] 20 mg PO QHS #30 tablet 07/19/21 Unknown Rx Thiamine [Vitamin B-1] 100 mg PO QDAY #30 tablet 07/19/21 Unknown Rx traMADoL [Ultram 50 MG tab] 50 mg PO Q6H PRN #14 tablet 07/19/21 Unknown Rx Allergies Allergy/AdvReac Type Severity Reaction Status Date / Time No Known Allergies Allergy Verified 07/17/21 01:12 ED Review of Systems ROS: Stated complaint: SOB Other details as noted in HPI Constitutional: denies: no symptoms reported Eyes: denies: as per HPI ENT: ear pain Respiratory: shortness of breath. denies: wheezing Cardiovascular: denies: chest pain, palpitations, dyspnea on exertion, syncope Gastrointestinal: denies: abdominal pain, nausea, vomiting Musculoskeletal: denies: as per HPI Skin: denies: as per HPI Neurological: denies: headache, weakness ED Past Medical Hx - Past Medical History Previous Medical History?: Yes Hx Hypertension: Yes Hx CVA: Yes (left) Hx Heart Attack/AMI: Yes Hx Congestive Heart Failure: No Hx Diabetes: No Hx Deep Vein Thrombosis: No Hx Pulmonary Embolism: No Hx GERD: No Hx Liver Disease: No Hx Renal Disease: No Hx Sickle Cell Disease: No Hx Arthritis: No Hx Headaches / Migraines: No Hx Seizures: No Hx Kidney Stones: No Hx Psychiatric Treatment: No Hx Asthma: No Hx COPD: No Hx Dementia: No Hx HIV: No Additional medical history: chronic pain in back, neck and L knee, ETOH abuse. herniated disc - Surgical History Past Surgical History?: Yes Hx Coronary Stent: No Hx Open Heart Surgery: No Hx Pacemaker: No Hx Internal Defibrillator: No Hx Cholecystectomy: No Hx Appendectomy: Yes Hx Breast Surgery: No Additional Surgical History: Left Knee. skin graft to right hand, left hip surgery - Social History Smoking Status: Current Every Day Smoker Substance Use Type: Alcohol - Medications Home Medications: Home Medications Medication Instructions Recorded Confirmed Last Taken Type Aspirin 325 mg PO QDAY #30 tablet 05/16/20 07/18/21 Unknown Rx Albuterol Sulfate [Proventil Hfa] 6.7 gm IH Q4HR #1 05/24/21 07/18/21 Unknown Rx Benzonatate [Tessalon Perles] 100 mg PO Q8HR #21 cap 05/24/21 07/18/21 Unknown Rx Esomeprazole Magnesium [NexIUM] 40 mg PO QDAY #30 capsule. 07/19/21 Unknown Rx Folic Acid [Folvite] 1 mg PO QDAY #30 tablet 07/19/21 Unknown Rx Metoprolol [Lopressor TAB] 25 mg PO BID #60 tablet 07/19/21 Unknown Rx Multivitamin with Folic Acid [Cvs 400 mcg PO QDAY #30 tablet 07/19/21 Unknown Rx One Daily Essential Tablet] Ondansetron [Zofran ODT TAB] 4 mg PO Q8HR #14 tab.rapdis 07/19/21 Unknown Rx Pantoprazole [Protonix TAB] 40 mg PO QDAY #30 tablet 07/19/21 Unknown Rx Pravastatin [Pravachol] 20 mg PO QHS #30 tablet 07/19/21 Unknown Rx Thiamine [Vitamin B-1] 100 mg PO QDAY #30 tablet 07/19/21 Unknown Rx traMADoL [Ultram 50 MG tab] 50 mg PO Q6H PRN #14 tablet 07/19/21 Unknown Rx ED Physical Exam - General Limitations: No Limitations General appearance: alert, other (Well-appearing male well-appearing male in no acute distress no dyspnea, talking without use of assistive) - Head Head exam: Present: atraumatic - Eye Eye exam: Present: normal appearance Pupils: Present: normal accommodation - ENT ENT exam: Present: normal exam - Neck Neck exam: Present: normal inspection. Absent: tenderness - Respiratory Respiratory exam: Present: normal lung sounds bilaterally - Cardiovascular Cardiovascular Exam: Absent: regular rate, normal rhythm - GI/Abdominal GI/Abdominal exam: Present: soft - Extremities Exam Extremities exam: Present: normal inspection - Back Exam Back exam: Present: normal inspection, full ROM - Neurological Exam Neurological exam: Present: alert, oriented X3 - Psychiatric Psychiatric exam: Present: normal affect, normal mood - Skin Skin exam: Present: warm, dry, intact ED Course Vital Signs 09/30/21 10/01/21 10/01/21 23:37 11:04 11:08 Temperature 97.5 F L Pulse Rate 107 H 97 H Respiratory 16 18 Rate Blood Pressure 115/71 Blood Pressure 108/80 [Left] O2 Sat by Pulse 95 98 97 Oximetry - Reevaluation(s) Reevaluation #1: 10/01/21 9:41 Patient has remained stable throughout ED stay, his vital signs also reassuring, his sats above 95% on room air, reports symptom has resolved, no medical emergency at this time. Critical care attestation.: If time is entered above; I have spent that time in minutes in the direct care of this critically ill patient, excluding procedure time. ED Disposition Clinical Impression: Shortness of breath Disposition: 01 HOME / SELF CARE / HOMELESS Is pt being admited?: No Does the pt Need Aspirin: No Condition: Stable Instructions: Shortness of Breath, Adult, [id number] Referrals: MATHEW REAVES MD [Primary Care Provider] - 3-5 Days
[2021-10-01 11:05] VITALS: BP 108/80
== END 2021-10-01 11:11 | disposition home or self-care (01) ==
LOC: ED 23:03
DX: R06.02 Shortness of breath (principal); I10 Essential (primary) hypertension
CPT/HCPCS: 99282

== ENCOUNTER 2021-10-10 21:36 | Emergency (ER) | payer MEDICAID | END 2021-10-11 04:48 | disposition left against medical advice (07) | LOC: ED 21:36 | DX: R06.02 Shortness of breath (principal); Z53.21 Procedure and treatment not carried out due to patient leaving prior to being seen by health care provider ==

== ENCOUNTER 2021-10-14 03:50 | Emergency (ER) | payer MEDICAID | END 2021-10-14 05:18 | disposition left against medical advice (07) | LOC: ED 03:50 | DX: R11.0 Nausea (principal); Z53.21 Procedure and treatment not carried out due to patient leaving prior to being seen by health care provider ==

== ENCOUNTER 2021-10-25 00:07 | Emergency (ER) | payer MEDICAID | END 2021-10-25 01:34 | disposition left against medical advice (07) | LOC: ED 00:07 | DX: R07.89 Other chest pain (principal); Z53.21 Procedure and treatment not carried out due to patient leaving prior to being seen by health care provider ==

== ENCOUNTER 2021-10-26 22:35 | Emergency (ER) | payer MEDICAID ==
[2021-10-26 22:41] VITALS: BP 123/87
== END 2021-10-27 12:26 | disposition left against medical advice (07) ==
LOC: ED 22:35
DX: R07.9 Chest pain, unspecified (principal); Z53.21 Procedure and treatment not carried out due to patient leaving prior to being seen by health care provider
CPT/HCPCS: 93005

== ENCOUNTER 2021-10-30 00:27 | Emergency (ER) | payer MEDICAID | END 2021-10-30 06:03 | disposition left against medical advice (07) | LOC: ED 00:27 | DX: R06.00 Dyspnea, unspecified (principal); Z53.21 Procedure and treatment not carried out due to patient leaving prior to being seen by health care provider ==

== ENCOUNTER 2021-11-01 23:00 | Emergency (ER) | payer MEDICAID | END 2021-11-02 05:00 | disposition left against medical advice (07) | LOC: ED 23:00 | DX: R07.9 Chest pain, unspecified (principal); Z53.21 Procedure and treatment not carried out due to patient leaving prior to being seen by health care provider ==

== ENCOUNTER 2021-11-06 00:08 | Emergency (ER) | payer MEDICAID | END 2021-11-06 04:28 | disposition left against medical advice (07) | LOC: ED 00:08 | DX: R06.02 Shortness of breath (principal); Z53.21 Procedure and treatment not carried out due to patient leaving prior to being seen by health care provider ==

== ENCOUNTER 2021-11-07 22:39 | Emergency (ER) | payer MEDICAID ==
--- NOTE | 2021-11-08 07:59 | Emergency Department Report ---
ED General Adult HPI - General Chief complaint: Dyspnea/Respdistress Stated complaint: SOB/CHEST PAIN PUI?: No Time Seen by Provider: 11/08/21 07:56 Source: patient Mode of arrival: Ambulatory Limitations: No Limitations - History of Present Illness Initial comments: 60 yo came to ER last night with "a little chest pain" but it is gone now. I can go home. There were a few of us out there last night, they left, I just didnt want to be rude." In his usual state of health - Related Data Previous Rx's Medication Instructions Recorded Last Taken Type Aspirin 325 mg PO QDAY #30 tablet 05/16/20 Unknown Rx Albuterol Sulfate [Proventil Hfa] 6.7 gm IH Q4HR #1 05/24/21 Unknown Rx Benzonatate [Tessalon Perles] 100 mg PO Q8HR #21 cap 05/24/21 Unknown Rx Esomeprazole Magnesium [NexIUM] 40 mg PO QDAY #30 capsule. 07/19/21 Unknown Rx Folic Acid [Folvite] 1 mg PO QDAY #30 tablet 07/19/21 Unknown Rx Metoprolol [Lopressor TAB] 25 mg PO BID #60 tablet 07/19/21 Unknown Rx Multivitamin with Folic Acid [Cvs 400 mcg PO QDAY #30 tablet 07/19/21 Unknown Rx One Daily Essential Tablet] Ondansetron [Zofran ODT TAB] 4 mg PO Q8HR #14 tab.rapdis 07/19/21 Unknown Rx Pantoprazole [Protonix TAB] 40 mg PO QDAY #30 tablet 07/19/21 Unknown Rx Pravastatin [Pravachol] 20 mg PO QHS #30 tablet 07/19/21 Unknown Rx Thiamine [Vitamin B-1] 100 mg PO QDAY #30 tablet 07/19/21 Unknown Rx traMADoL [Ultram 50 MG tab] 50 mg PO Q6H PRN #14 tablet 07/19/21 Unknown Rx Allergies Allergy/AdvReac Type Severity Reaction Status Date / Time No Known Allergies Allergy Verified 07/17/21 01:12 ED Review of Systems ROS: Stated complaint: SOB/CHEST PAIN Other details as noted in HPI Comment: All other systems reviewed and negative ED Past Medical Hx - Past Medical History Previous Medical History?: Yes Hx Hypertension: Yes Hx CVA: Yes (left) Hx Heart Attack/AMI: Yes Hx Congestive Heart Failure: No Hx Diabetes: No Hx Deep Vein Thrombosis: No Hx Pulmonary Embolism: No Hx GERD: No Hx Liver Disease: No Hx Renal Disease: No Hx Sickle Cell Disease: No Hx Arthritis: No Hx Headaches / Migraines: No Hx Seizures: No Hx Kidney Stones: No Hx Psychiatric Treatment: No Hx Asthma: No Hx COPD: No Hx Dementia: No Hx HIV: No Additional medical history: chronic pain in back, neck and L knee, ETOH abuse. herniated disc - Surgical History Past Surgical History?: Yes Hx Coronary Stent: No Hx Open Heart Surgery: No Hx Pacemaker: No Hx Internal Defibrillator: No Hx Cholecystectomy: No Hx Appendectomy: Yes Hx Breast Surgery: No Additional Surgical History: Left Knee. skin graft to right hand, left hip surgery - Family History Family history: no significant - Social History Smoking Status: Current Every Day Smoker Substance Use Type: Alcohol - Medications Home Medications: Home Medications Medication Instructions Recorded Confirmed Last Taken Type Aspirin 325 mg PO QDAY #30 tablet 05/16/20 07/18/21 Unknown Rx Albuterol Sulfate [Proventil Hfa] 6.7 gm IH Q4HR #1 05/24/21 07/18/21 Unknown Rx Benzonatate [Tessalon Perles] 100 mg PO Q8HR #21 cap 05/24/21 07/18/21 Unknown Rx Esomeprazole Magnesium [NexIUM] 40 mg PO QDAY #30 capsule.dr 07/19/21 Unknown Rx Folic Acid [Folvite] 1 mg PO QDAY #30 tablet 07/19/21 Unknown Rx Metoprolol [Lopressor TAB] 25 mg PO BID #60 tablet 07/19/21 Unknown Rx Multivitamin with Folic Acid [Cvs 400 mcg PO QDAY #30 tablet 07/19/21 Unknown Rx One Daily Essential Tablet] Ondansetron [Zofran ODT TAB] 4 mg PO Q8HR #14 tab.rapdis 07/19/21 Unknown Rx Pantoprazole [Protonix TAB] 40 mg PO QDAY #30 tablet 07/19/21 Unknown Rx Pravastatin [Pravachol] 20 mg PO QHS #30 tablet 07/19/21 Unknown Rx Thiamine [Vitamin B-1] 100 mg PO QDAY #30 tablet 07/19/21 Unknown Rx traMADoL [Ultram 50 MG tab] 50 mg PO Q6H PRN #14 tablet 07/19/21 Unknown Rx ED Physical Exam - General Limitations: No Limitations General appearance: alert, in no apparent distress - Head Head exam: Present: atraumatic, normocephalic - Eye Eye exam: Present: normal appearance - ENT ENT exam: Present: mucous membranes moist - Neck Neck exam: Present: normal inspection - Respiratory Respiratory exam: Present: normal lung sounds bilaterally. Absent: respiratory distress - Cardiovascular Cardiovascular Exam: Present: regular rate, normal rhythm. Absent: systolic murmur, diastolic murmur, rubs, gallop - GI/Abdominal GI/Abdominal exam: Present: soft, normal bowel sounds - Rectal Rectal exam: Present: deferred - Extremities Exam Extremities exam: Present: normal inspection - Back Exam Back exam: Present: normal inspection - Neurological Exam Neurological exam: Present: alert, oriented X3 - Psychiatric Psychiatric exam: Present: normal affect, normal mood - Skin Skin exam: Present: warm, dry, intact, normal color. Absent: rash ED Course Vital Signs 11/08/21 01:48 Temperature 97.9 F Pulse Rate 105 H Respiratory 16 Rate Blood Pressure 102/59 [Right] O2 Sat by Pulse 99 Oximetry ED Medical Decision Making - Medical Decision Making no complaints on provider exam well known to us- spends night in ER he said he did not want to be rude and just leave homelessness Vital Signs 11/08/21 01:48 Temperature 97.9 F Pulse Rate 105 H Respiratory 16 Rate Blood Pressure 102/59 [Right] O2 Sat by Pulse 99 Oximetry Critical care attestation.: If time is entered above; I have spent that time in minutes in the direct care of this critically ill patient, excluding procedure time. ED Disposition Clinical Impression: Homelessness, Chest pain Disposition: HOME / SELF CARE / HOMELESS Is pt being admited?: No Does the pt Need Aspirin: No Condition: Stable Instructions: Nonspecific Chest Pain, Adult Additional Instructions: follow up with pcp Referrals: MATHEW REAVES MD [Primary Care Provider] - 3-5 Days Time of Disposition: 07:58
[2021-11-08 08:48] VITALS: BP 150/96
== END 2021-11-08 08:50 | disposition home or self-care (01) ==
LOC: ED 22:39
DX: R07.9 Chest pain, unspecified (principal); Z59.00 Homelessness unspecified
CPT/HCPCS: 99282

== ENCOUNTER 2021-11-17 22:28 | Emergency (ER) | payer MEDICAID ==
[2021-11-18 01:22] VITALS: BP 122/79
--- NOTE | 2021-11-18 02:13 | XRay Report ---
CHEST 2 VIEWS INDICATION / CLINICAL INFORMATION: Dyspnea. COMPARISON: Chest x-ray 09/28/2021 FINDINGS: SUPPORT DEVICES: None. HEART / MEDIASTINUM: Heart size and mediastinal contour appear within normal limits. LUNGS / PLEURA: No significant pulmonary or pleural abnormality. No pneumothorax. BONES: Stable remote right rib fractures involving the lateral right seventh ribs. No acute osseous f indings. ADDITIONAL FINDINGS: No significant additional findings. IMPRESSION: 1. No active cardiopulmonary disease. Signer Name: Aron Mesa II, MD Signed: 11/18/2021 2:08 AM Workstation Name: [id number]
[2021-11-18 03:01] LABS: Hematocrit 30.9 % (35.5-45.6); Hemoglobin 9.9 gm/dl (11.8-15.2); Mean Corpuscular HGB Conc 32 % (32-34); Mean Corpuscular Volume 71 fl (84-94); Platelet Count 194 K/mm3 (140-440); Red Blood Count 4.34 M/mm3 (3.65-5.03)
[2021-11-18 03:09] LABS: Red Cell Distribution Width 22.4 % (13.2-15.2)
[2021-11-18 03:59] LABS: Anisocytosis 1+; Basophils % (Manual) 0 % (0.0-1.8); Total Cells Counted 100
[2021-11-18 04:00] LABS: Platelet Estimate Consistent w Auto
[2021-11-18 10:15] LABS: Alanine Aminotransferase 63 units/L (7-56); Albumin 3.9 g/dL (3.9-5); Blood Urea Nitrogen 4 mg/dL (9-20); Calcium 8.4 mg/dL (8.4-10.2); Hemolysis Index 4
[2021-11-18 10:17] LABS: BUN/Creatinine Ratio 8
--- NOTE | 2021-11-20 09:53 | Electrocardiograph Report ---
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
== END 2021-11-18 02:00 | disposition left against medical advice (07) ==
LOC: ED 22:28
DX: R07.89 Other chest pain (principal); R06.02 Shortness of breath; Z53.21 Procedure and treatment not carried out due to patient leaving prior to being seen by health care provider
CPT/HCPCS: 36415; 71020; 80053; 84484; 85007; 85025